=== PATIENT | male | born 1960 | race Caucasian/White ===

== ENCOUNTER → 2016-08-07 | Outpatient (CLI) | payer BC ==
[~2016-08-07] MED LIST: ASPEC81 PO; FISHOIL PO; GARLTAB3 PO; LISI-791 PO; METO-478 PO; OXYC-643 PO; PRAV20TA PO
--- NOTE | 2016-08-07 16:32 | DIAGNOSTIC IMAGING REPORT ---
CHEST 2 VIEWS ROUTINE HISTORY: Upper respiratory tract infection. COMPARISON: Chest 08/26/2012. FINDINGS: The heart is normal in size. No pleural effusions. No pneumothorax. The left lung is clear. Mild diffuse interstitial thickening which appears to be chronic. Slight increased density within the right medial lung base on the frontal view. IMPRESSION: Slight increased focal density within the right medial lung base on the frontal view. This could be due to vascular crowding or developing pneumonia. Electronically signed by: Rahul Garcia M.D. 08/07/2016 4:30 PM
== END | disposition home or self-care (01) ==
LOC: C.RAD1850 15:56
PROVIDERS: ATTEND Student in an Organized Health Care Education/Training Program
DX: J06.9 Acute upper respiratory infection, unspecified (principal)

== ENCOUNTER → 2016-12-11 | Outpatient (CLI) | payer BC ==
--- NOTE | 2016-12-11 12:48 | DIAGNOSTIC IMAGING REPORT ---
CHEST 2 VIEWS ROUTINE CLINICAL HISTORY: R05, R53.83 PERSISTENT COUGH COMPARISON STUDY: 08/07/2016 FINDINGS: The heart is normal in size. There is no failure. There is no lobar consolidation. There is subtle right lower lobe tram tracking raising the possibility of bronchiectasis. Mild peribronchial thickening is suspected. Rounded opacities visualized towards each lung base are felt to reflect nipple shadows. No pleural effusions are visualized[ IMPRESSION: Suspected lower lobe bronchiectatic change with mild peribronchial thickening most pronounced on the right. No evidence of lobar consolidation. No evidence of failure Electronically signed by: Saravanan Santana M.D. 12/11/2016 12:46 PM Dictated Date/Time: 12/11/2016 12:44 PM
== END | disposition home or self-care (01) ==
LOC: C.RAD 12:07
PROVIDERS: ATTEND Nurse Practitioner Family
DX: R05 Cough (principal); R53.83 Other fatigue

== ENCOUNTER → 2017-02-18 | Outpatient (CLI) | payer BC ==
[~2017-02-18] MED LIST changes: -METO-478 PO; +METO1TAB31 PO
--- NOTE | 2017-02-18 10:57 | DIAGNOSTIC IMAGING REPORT ---
CHEST 2 VIEWS ROUTINE CLINICAL HISTORY: ASTHMATIC BRONCHITIS bronchitis COMPARISON STUDY: 12/11/2016 FINDINGS: No significant change from the prior study. Slight interstitial and bronchiectatic change at both lung bases. No focal infiltrate. Upper lungs are clear. No evidence for cardiac enlargement. IMPRESSION: Chronic basilar interstitial and bronchiectatic change. No acute or interval process. The above report was generated using voice recognition software. It may contain grammatical, syntax or spelling errors. Electronically signed by: Mohit Winchester M.D. 02/18/2017 10:56 AM Dictated Date/Time: 02/18/2017 10:55 AM
== END | disposition home or self-care (01) ==
LOC: C.RADBBURG 10:37
PROVIDERS: ATTEND Physician Assistant
DX: J45.909 Unspecified asthma, uncomplicated (principal)

== ENCOUNTER 2017-08-30 21:45 | Emergency (ER) | payer BC, OTHER ==
[~2017-08-30] VITALS: Ht 175.3 cm; Wt 85.0 kg
[~2017-08-30 21:45] MED LIST changes: +METO-478 PO; -METO1TAB31 PO
[2017-08-30 22:02] VITALS: TEMP 36.5; Ht 175.3 cm; Wt 85.0 kg
[2017-08-30] MEDS ORDERED: OXYCODONE HCL IR 5 MG TAB (IMMEDIATE RELEASE) PO STA (22:22)
[2017-08-30] MEDS ORDERED: ASPI81TA28 PO (22:52)
[2017-08-30] MEDS ORDERED: GARL500C5 PO (22:52)
[2017-08-30] MEDS ORDERED: OMEGCAP2 PO (22:52)
[2017-08-30] MEDS ORDERED: IBUP1TAB PO (22:54)
[2017-08-30] MEDS ORDERED: DEXT1LIQ36 PO (22:54)
[2017-08-30] MEDS ORDERED: OXYC1TAB3 PO (23:50)
[2017-08-31] MEDS ORDERED: OXYCODONE IR HOME PACK PO ONE
[2017-08-31 00:19] VITALS: BP 113/73; PULSE 80; O2SAT 93
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
--- NOTE | 2017-08-31 07:59 | DIAGNOSTIC IMAGING REPORT ---
R RIBS UNILATERAL WITH PA CHEST CLINICAL HISTORY: Right-sided rib pain. COMPARISON STUDY: Chest radiograph February 18, 2017. FINDINGS: There is no pneumothorax or pleural effusion. There is no consolidation. Cardiomediastinal silhouette is stable. There is no evidence for pulmonary edema. No displaced right-sided rib fracture is identified. There is a lucency with sclerosis of the posterior lateral right 10th rib. IMPRESSION: 1. No pneumothorax. 2. Findings suggestive of a nondisplaced subacute right 10th rib fracture. Electronically signed by: Norm Robertson M.D. 08/31/2017 7:58 AM Dictated Date/Time: 08/31/2017 7:53 AM
== END 2017-08-31 00:20 | disposition home or self-care (01) ==
LOC: C.EDB 21:45 → C.EDA 08-31 00:20
DX: R07.81 Pleurodynia (principal); W22.8XXA Striking against or struck by other objects, initial encounter; Z79.82 Long term (current) use of aspirin; R05 Cough; Y93.83 Activity, rough housing and horseplay

== ENCOUNTER → 2017-09-12 | Outpatient (CLI) | payer OTHER ==
[~2017-09-12] MED LIST changes: -ASPEC81 PO; +ASPI81TA28 PO; +DEXT1LIQ36 PO; -FISHOIL PO; +GARL500C5 PO; -GARLTAB3 PO; +IBUP1TAB PO; +OMEGCAP2 PO; -OXYC-643 PO; +OXYC1TAB3 PO
--- NOTE | 2017-09-12 12:27 | DIAGNOSTIC IMAGING REPORT ---
CHEST 2 VIEWS ROUTINE CLINICAL HISTORY: COUGH, ACUTE BACK PAIN COMPARISON STUDY: 02/18/2017 FINDINGS: The heart is mildly enlarged. There is underlying pulmonary emphysema. There is no failure. There is mild basilar interstitial thickening, finding which is largely chronic.[ There are no selective pleural effusions. No pneumothorax is visualized. IMPRESSION: Cardiomegaly. Emphysema with chronic basilar interstitial thickening. No evidence of acute parenchymal consolidation Electronically signed by: Saravanan Santana M.D. 09/12/2017 12:26 PM Dictated Date/Time: 09/12/2017 12:25 PM
== END | disposition home or self-care (01) ==
LOC: C.RAD 12:04
PROVIDERS: ATTEND Nurse Practitioner Family
DX: R05 Cough (principal); M54.9 Dorsalgia, unspecified; I51.7 Cardiomegaly; J43.9 Emphysema, unspecified

== ENCOUNTER 2017-09-19 19:24 | Emergency (ER) | payer OTHER ==
[~2017-09-19] VITALS: Ht 177.8 cm; Wt 82.3 kg
[2017-09-19 19:28] VITALS: Ht 177.8 cm; Wt 82.3 kg
[2017-09-19] MEDS ORDERED: SODIUM CHLORIDE 0.9% 1000ML 1,000 ML IV STA ×2 (19:53→22:15)
[2017-09-19] MEDS ORDERED: FENTANYL CITRATE INJ 50 MCG/1 ML 2 ML VIAL IV STA ×2 (19:53→22:15)
--- NOTE | 2017-09-19 20:10 | EMERGENCY ROOM VISIT NOTE ---
ED Visit Note First contact with patient: 19:34 CHIEF COMPLAINT: Rib pain/back pain HISTORY OF PRESENTING ILLNESS: This is a 57-year-old male who presents to the emergency department with complaint of rib/back pain for the past several days. The patient states he was evaluated here on 08/31 after a fall from slipping on the ice and was found to have a fractured rib on the right side. He states that his rib pain initially was getting better with pain medication, but for the past week he has been having increased pain across the middle of his back and states that it hurts to breathe. He denies any chest pain or shortness of breath, palpitations, hemoptysis, dizziness or syncope. He denies any leg pain or swelling. He states that he has been taking 600 mg of Advil and 5 mg of oxycodone every 6 hours with minimal improvement of the pain, but it is not getting any better and in fact has been getting worse. He denies any associated symptoms of headaches, neck pain or stiffness, weakness or numbness of the extremities, difficulty with ambulation, saddle paresthesias, bowel or bladder dysfunction, bloody or black stools, or rash. REVIEW OF SYSTEMS: A complete 10 point review of systems was reviewed with the patient with pertinent positives and negatives as per history of present illness. All else were negative. PAST MEDICAL HISTORY: UT, HTN, HLD, low back surgery for disc herniation FAMILY HISTORY: Father had prostate cancer SOCIAL HISTORY: Lives at home with . Former smoker, quit several years ago , denies alcohol and recreational drugs. ALLERGIES: Reviewed in chart. PHYSICAL EXAM: CONSTITUTIONAL: Pleasant and cooperative. No acute distress, but is in obvious pain and appears uncomfortable during exam. Mildly dehydrated. HEENT: Normocephalic, atraumatic. Pupils equal, round and reactive to light, EOMI. TMs normal. Pharynx normal. Tacky mucous membranes. NECK: Supple, full active range of motion without discomfort. No cervical adenopathy. RESPIRATORY: Clear to auscultation bilaterally with no wheezing, crackles, rhonchi or stridor. Equal expansion bilaterally. CARDIOVASCULAR: Tachycardic. Regular rhythm with no murmurs, rubs or gallops. Normal peripheral perfusion. No edema. CHEST WALL: Normal excursion. No tenderness to palpation or with compression of the chest cavity. No crepitus. No ecchymosis or abrasions noted. GASTROINTESTINAL: Soft, nontender, nondistended. No palpable masses or HSM. Bowel sounds present in all quadrants. BACK: Normal alignment of the spine. No midline tenderness of the thoracic or lumbar spine to palpation. No tenderness of the paraspinous muscles to palpation. MUSCULOSKELETAL: Full range of motion of all joints without discomfort. INTEGUMENTARY: No rash or other significant dermatologic conditions noted. NEUROLOGIC: Alert and oriented X 4 with normal affect. Cranial nerves II-XII grossly intact. No focal neurologic deficits noted. 5/5 strength all 4 extremities. Normal sensation in all 4 extremities to light touch. 2+ patellar and Achilles deep tendon reflexes bilaterally and equal. ED COURSE AND MEDICAL DECISION MAKING: CC: Patient presenting with complaint of rib/back pain DIFFERENTIAL DIAGNOSIS: Includes, but not limited to rib fracture, costochondritis, musculoskeletal back pain, vertebral fracture, pulmonary contusion, pneumonia, PE, pneumothorax, hemothorax, ACS, among others. INTERPRETATION OF LABS: No leukocytosis, mild anemia, no significant electrolyte abnormalities, elevated BUN and creatinine, normal liver enzymes and lipase. Coagulation factors within normal limits with the exception of d- dimer which is significantly elevated. Negative troponin. UA shows trace ketones, otherwise negative for proteinuria, hematuria, or infection. IMAGING: CT ANGIOGRAPHY OF THE CHEST, PULMONARY EMBOLUS PROTOCOL CLINICAL HISTORY: Pleuritic chest pain. Severe back pain. Recent rib fractures. COMPARISON STUDY: Chest radiograph September 12, 2017. TECHNIQUE: Following IV administration of 115 mL of Optiray-320, helical axial images of the chest were obtained utilizing the pulmonary embolus protocol. Maximal intensity projections and sagittal and coronal reformats were viewed on an independent 3D workstation. IV contrast was administered without complication. A dose lowering technique was utilized adhering to the principles of ALARA. FINDINGS: No pulmonary emboli are identified. The heart is mildly enlarged. There is extensive coronary artery calcification. There is no pericardial effusion. There are several mildly enlarged left lower cervical lymph nodes. Note is made of an enlarged left internal mammary lymph node that measures 1.6 cm. There is no evidence for thoracic aortic dissection. There is moderate stenosis of the proximal left subclavian artery. Central airways are patent. Severe upper lobe predominant emphysema is noted. Bilateral lower lobe subpleural linear opacities favor atelectasis. Note is made of innumerable lytic lesions within the visualized skeletal structures, including numerous thoracic spine lesions. A lesion nearly replaces the T3 vertebral body with mild loss of vertebral body height. There is a large lesion centered within the posterior elements of T7 with extensive epidural extension with suspected severe central canal narrowing due to the tumor. This is suboptimally assessed by CT. There is an associated pathologic fracture of T7. There is a pathologic fracture of the right 10th rib. The abdomen and pelvis will be reported separately. Upper abdominal lymphadenopathy is noted. IMPRESSION: 1. No pulmonary emboli identified. 2. Innumerable lytic skeletal lesions, including a lesion centered within the posterior elements of T7 with pathologic fracture and extensive epidural extension of tumor. Suspected severe central canal narrowing at this level due to the tumor. This likely results in cord compression. The findings are consistent with a neoplastic process and may reflect metastatic disease or lymphoma/multiple myeloma. Findings discussed with Siobhan Williamson at time of dictation. 3. Mildly enlarged left lower cervical, internal mammary chain and upper abdominal lymphadenopathy which suggests metastatic disease or lymphoma. 4. Severe emphysema. ----- CT OF THE ABDOMEN AND PELVIS WITH CONTRAST CLINICAL HISTORY: Back pain. Flank pain. COMPARISON STUDY: Right upper quadrant ultrasound December 04, 2016. TECHNIQUE: Following IV administration of 115 mL of Optiray-320, axial images of the abdomen and pelvis were obtained from the lung bases to the proximal femurs. Images were reviewed in the axial, sagittal, and coronal planes. IV contrast was administered without complication. A dose lowering technique was utilized adhering to the principles of ALARA. CT DOSE: 968.23 mGy.cm FINDINGS: The chest will be reported separately. Note is made of several enlarged cardiophrenic angle nodes that measure up to 1.4 cm in short axis diameter. An index peripancreatic node measures 1.7 cm in short axis diameter. Index left para-aortic lymph node measures 1.5 cm in short axis diameter. A 6 mm lateral segment hepatic lesion is probably benign. The spleen, adrenal glands, kidneys and pancreas are unremarkable. There is no biliary or pancreatic ductal dilatation. There is no evidence for a bowel obstruction. Note is made of sigmoid diverticulosis with mild wall thickening of the sigmoid colon. There is minimal adjacent infiltration. There is no free air or abscess. There are post operative findings consistent with an aortobifemoral bypass which appears patent. Note is made of innumerable lytic lesions within visualized skeletal structures, including a 4.7 cm lytic lesion within the posterior medial left iliac bone. There is an L5 pathologic fracture. Mild loss of vertebral body height is noted. IMPRESSION: 1. Innumerable lytic skeletal lesions consistent with a neoplastic process. This may reflect metastatic disease or lymphoma/myeloma. Associated L5 pathologic fracture. 2. Findings suggestive of mild acute sigmoid diverticulitis. An underlying mucosal lesion is considered unlikely but cannot be excluded. 3. Multiple mildly enlarged upper abdominal/para-aortic lymph nodes which may reflect metastatic disease or lymphoma. EKG: Normal sinus rhythm at a rate of 98 bpm, small Q waves noted in the inferior leads, appears unchanged when compared to previous EKG of 08/24/2012 by my interpretation. MEDICATION RECONCILIATION: I attest that I have personally reviewed the patient 's current medication list. INITIAL VITAL SIGNS REVIEW: I reviewed the patient's initial vital signs and interpret them as follows: T: Afebrile; BP: Normotensive; HR: Tachycardic; RR : Within normal limits; Pulse Ox: Within normal limits on room air. Blood pressure screening: The patient was found to have normal blood pressure on screening and does not require follow-up for repeat blood pressure check. SUMMARY: Patient was evaluated at bedside, history and physical exam performed. Patient is alert and oriented, no acute distress, but appears uncomfortable and in pain throughout exam, resting on the stretcher. Patient does not have any reproducible pain with palpation of the chest wall, compression of his rib cage, or percussion of his midline spine. There is no visible muscle spasm and no tenderness to palpation of the paraspinous muscles. Patient does report sharp stabbing pain with deep inspiration. Given his recent trauma, age, pleuritic chest/back pain, and noted to be tachycardic on vitals, I am concerned for a PE. Orders were placed at bedside for labs, UA, IV fluids for hydration, IV fentanyl for pain, EKG, CTA of the chest to evaluate for PE and other abnormalities of the chest. Patient discussed with Dr. Bhat, who agrees with my assessment and plan. Labs and imaging reviewed as above, labs concerning for renal insufficiency with creatinine of 1.95. I discussed with Dr. Bhat, I still have a high suspicion for PE, therefore a d- dimer was ordered. This was noted to be significantly elevated. After discussion with the patient and his family, the decision was made to proceed with a contrast-enhanced CT study. Given the nature of his fall and potential for flank involvement, and abdomen/ pelvis study was also ordered. I discussed with radiology prior to ordering these tests, he assured me that the dye load would be the same as with only the CT chest. CT imaging reviewed and discussed with Dr. Robertson, radiologist, no evidence of a PE, but concerning for significant lytic skeletal lesions and multiple enlarged lymph nodes concerning for metastatic disease or lymphoma. Most concerning is a pathological fracture at T7 with extension of the tumor into the spinal column and concern for possible cord compression. Patient denies any symptoms of weakness, numbness or tingling in the legs, bowel or bladder dysfunction, or saddle numbness. He has no concerning findings on exam for acute spinal cord compression. Patient's neurologic exam has been reassessed multiple times during his stay in the emergency department, and has been unchanged. Patient reassessed multiple times throughout ED stay, he remained in significant pain after multiple doses of fentanyl, therefore was given a dose of IV Dilaudid, with improved relief in pain. I spoke on the phone with Dr. Todd, orthopedics-spine surgery, regarding CT findings of the T7 fracture and concern for cord compression. He states that the medical complications regarding these bone lesions would make the surgery a very complex decision. Given that the patient is neurologically and hemodynamically stable at this time , he feels that emergent MRI studies are not necessary at this time. He did agree with the plan to transfer the patient to a tertiary care center for more definitive diagnosis and management of his condition. I spent several minutes at the bedside discussing with the patient and his and daughter regarding the findings on his CT imaging. I also discussed the desire to transfer the patient for higher level of care, patient and his family prefer [facility]. All questions were answered to the best of my ability, and the patient and his family were updated routinely throughout the planning process. I spoke on the phone with Dr. Landeros, internal medicine at [facility], who agrees to accept the patient as a transfer. Due to critical capacity at [facility], the patient will be sent as an ED to ED transfer. I then spoke on the phone with the ED physician, who states the patient meets trauma criteria based on multiple fractures, and has also involved the trauma team, who will be consulted and plan to evaluate the patient upon arrival. Patient and his family were again updated on plans for transport. There is no transport team available until later this morning. Patient was placed on a maintenance IV fluid for continued renal protection, standing orders for PRN Dilaudid to manage pain, scheduled Toradol and Decadron ordered. The patient is to be provided with a hospital bed for improved comfort. The patient will remain on supervisor assembly during his stay in the emergency department. Patient was signed out to Gregory Abraham PA-C, at change of shift. Patient hemodynamically stable at time of sign-out. Plans for transport to [facility] in the a.m. Current/Historical Medications Scheduled Aspirin (Aspirin Ec), 81 MG PO DAILY Cefdinir (Omnicef), 300 MG PO Q12H Garlic (Garlic), 500 MG PO QAM Lisinopril (Zestril), 10 MG PO QPM Metoprolol Succinate (Toprol Xl), 25 MG PO HS [place]-3 Fatty Acids (Fish Oil), 1 CAP PO QAM Pravastatin Sodium (Pravachol), 20 MG PO HS Scheduled PRN Ibuprofen-Diphenhydramine Citr (Advil Pm), 1 TAB PO UD PRN for Pain/Sleep Oxycodone Ir (Roxicodone Ir), 5 MG PO Q4H PRN for Pain Oxycodone/Acetaminophen 5MG/325MG (Percocet 5MG/325MG), 1 TABLET PO Q6H PRN for Pain Allergies Coded Allergies: Atorvastatin (Verified Adverse Reaction, Unknown, myalgias, 01/02/17) Simvastatin (Verified Adverse Reaction, Unknown, myalgias, 01/02/17) Vital Signs Date Time Temp Pulse Resp B/P (MAP) Pulse Ox O2 Delivery O2 Flow Rate FiO2 09/19/17 22:38 96 20 138/89 95 Room Air 09/19/17 21:18 86 16 100/70 93 Room Air 09/19/17 20:18 96 09/19/17 20:14 97 Room Air 09/19/17 20:14 97 Room Air 09/19/17 19:28 36.4 107 18 112/76 95 Room Air Laboratory Results 09/19/17 20:10 Red Blood Count 2.98, Mean Corpuscular Volume 99.7, Mean Corpuscular Hemoglobin 33.9, Mean Corpuscular Hemoglobin Concent 34.0, Mean Platelet Volume 9.0, Neutrophils (%) (Auto) 57.2, Lymphocytes (%) (Auto) 29.3, Monocytes (%) (Auto) 9.6, Eosinophils (%) (Auto) 0.8, Basophils (%) (Auto) 0.3, Neutrophils # (Auto) 4.51, Lymphocytes # (Auto) 2.31, Monocytes # (Auto) 0.76, Eosinophils # (Auto) 0.06, Basophils # (Auto) 0.02 09/19/17 20:10 Test 09/19/17 20:10 09/19/17 21:40 White Blood Count 7.88 K/uL (4.8-10.8) Red Blood Count 2.98 M/uL (4.7-6.1) Hemoglobin 10.1 g/dL (14.0-18.0) Hematocrit 29.7 % (42-52) Mean Corpuscular Volume 99.7 fL (80-100) Mean Corpuscular Hemoglobin 33.9 pg (25-34) Mean Corpuscular Hemoglobin Concent 34.0 g/dl (32-36) Platelet Count 185 K/uL (130-400) Mean Platelet Volume 9.0 fL (7.4-10.4) Neutrophils (%) (Auto) 57.2 % Lymphocytes (%) (Auto) 29.3 % Monocytes (%) (Auto) 9.6 % Eosinophils (%) (Auto) 0.8 % Basophils (%) (Auto) 0.3 % Neutrophils # (Auto) 4.51 K/uL (1.4-6.5) Lymphocytes # (Auto) 2.31 K/uL (1.2-3.4) Monocytes # (Auto) 0.76 K/uL (0.11-0.59) Eosinophils # (Auto) 0.06 K/uL (0-0.5) Basophils # (Auto) 0.02 K/uL (0-0.2) RDW Standard Deviation 54.8 fL (36.4-46.3) RDW Coefficient of Variation 15.1 % (11.5-14.5) Immature Granulocyte % (Auto) 2.8 % Immature Granulocyte # (Auto) 0.22 K/uL (0.00-0.02) Nucleated RBC Absolute Count (auto) 0.06 K/uL (0-0) Nucleated Red Blood Cells % 0.7 % Prothrombin Time 11.6 SECONDS (9.0-12.0) Prothromb Time International Ratio 1.1 (0.9-1.1) Activated Partial Thromboplast Time 21.5 SECONDS (21.0-31.0) Partial Thromboplastin Ratio 0.8 D-Dimer 2150 ug/L FEU (0-500) Anion Gap 8.0 mmol/L (3-11) Est Creatinine Clear Calc Drug Dose 42.1 ml/min Estimated GFR () 42.4 Estimated GFR (Non- 36.6 BUN/Creatinine Ratio 14.5 (10-20) Calcium Level 8.2 mg/dl (8.5-10.1) Total Bilirubin 0.2 mg/dl (0.2-1) Aspartate Amino Transf (AST/SGOT) 14 U/L (15-37) Alanine Aminotransferase (ALT/SGPT) 19 U/L (12-78) Alkaline Phosphatase 78 U/L (45-117) Troponin I < 0.015 ng/ml (0-0.045) Total Protein 11.9 gm/dl (6.4-8.2) Albumin 2.6 gm/dl (3.4-5.0) Globulin 9.3 gm/dl (2.5-4.0) Albumin/Globulin Ratio 0.3 (0.9-2) Urine Color DK YELLOW Urine Appearance CLEAR (CLEAR) Urine pH 5.0 (4.5-7.5) Urine Specific [place] 1.027 (1.000-1.030) Urine Protein NEG (NEG) Urine Glucose (UA) NEG (NEG) Urine Ketones TRACE (NEG) Urine Occult Blood NEG (NEG) Urine Nitrite NEG (NEG) Urine Bilirubin NEG (NEG) Urine Urobilinogen NEG (NEG) Urine Leukocyte Esterase NEG (NEG) Medications Administered Medications (Trade) Dose Ordered Sig/Malik Route Start Time Stop Time Status Last Admin Dose Admin Fentanyl Citrate (Fentanyl Inj) 50 mcg NOW STAT IV 09/19/17 19:53 09/19/17 19:57 DC 09/19/17 20:13 50 MCG Sodium Chloride 1,000 ml @ 999 mls/hr Q1H1M STAT IV 09/19/17 19:53 09/19/17 20:53 DC 09/19/17 20:13 999 MLS/HR Fentanyl Citrate (Fentanyl Inj) 100 mcg NOW STAT IV 09/19/17 22:15 09/19/17 22:18 DC 09/19/17 22:31 100 MCG Sodium Chloride 1,000 ml @ 999 mls/hr Q1H1M STAT IV 09/19/17 22:15 09/19/17 23:15 DC 09/19/17 22:37 999 MLS/HR Hydromorphone HCl (Dilaudid Inj) 1 mg NOW STAT IV 09/19/17 23:33 09/19/17 23:34 DC 09/19/17 23:39 1 MG Dexamethasone Sodium Phosphate (Decadron Inj) 10 mg Q6H STAT IV 09/19/17 23:46 09/19/17 23:51 DC 09/19/17 23:59 10 MG Ketorolac Tromethamine (Toradol Inj) 15 mg Q6H PRN IV. 09/20/17 00:15 09/25/17 00:14 09/20/17 00:23 15 MG Departure Information Referrals Valeria Lackey [email or web address]. (PCP) Patient Instructions [facility]
[2017-09-19 20:14] VITALS: O2SAT 97
[2017-09-19] MEDS ORDERED: OPTIRAY 320 IV PRN (20:15)
[2017-09-19] MEDS ORDERED: OXYC-57 PO (20:26)
[2017-09-19] MEDS ORDERED: CEFD1CAP14 PO (20:27)
[2017-09-19 20:34] LABS: BASO % 0.3 %; BASO ABS # 0.02 K/uL (0-0.2); EOS % 0.8 %; EOS ABS # 0.06 K/uL (0-0.5); HEMATOCRIT 29.7 % (42-52); HEMOGLOBIN 10.1 g/dL (14.0-18.0); IG# 0.22 K/uL (0.00-0.02); LYMPH % 29.3 %; LYMPH ABS # 2.31 K/uL (1.2-3.4); MEAN CELL VOLUME 99.7 fL (80-100); MEAN CORPUSCULAR HEMOGLOBIN 33.9 pg (25-34); MONO % 9.6 %; MONO ABS # 0.76 K/uL (0.11-0.59); NEUT % 57.2 %; NEUT ABS # 4.51 K/uL (1.4-6.5); NUCLEATED RED BLOOD CELL ABS 0.06 K/uL (0-0); PLATELET COUNT 185 K/uL (130-400); RED CELL DISTRIBUTION WIDTH CV 15.1 % (11.5-14.5); RED CELL DISTRIBUTION WIDTH SD 54.8 fL (36.4-46.3); WHITE BLOOD COUNT 7.88 K/uL (4.8-10.8)
[2017-09-19 20:53] LABS: ALBUMIN 2.6 gm/dl (3.4-5.0); ALT/SGPT 19 U/L (12-78); AST/SGOT 14 U/L (15-37); BLOOD UREA NITROGEN 28 mg/dl (7-18); CALCIUM 8.2 mg/dl (8.5-10.1); CARBON DIOXIDE 25 mmol/L (21-32); CREATININE 1.95 mg/dl (0.60-1.40); GLUCOSE 104 mg/dl (70-99); POTASSIUM 3.7 mmol/L (3.5-5.1); SODIUM 133 mmol/L (136-145)
[2017-09-19 20:58] LABS: ALKALINE PHOSPHATASE 78 U/L (45-117); TOTAL PROTEIN 11.9 gm/dl (6.4-8.2)
[2017-09-19 21:05] LABS: INR 1.1 (0.9-1.1); PTT PATIENT 21.5 SECONDS (21.0-31.0)
--- NOTE | 2017-09-19 22:54 | DIAGNOSTIC IMAGING REPORT ---
CT ANGIOGRAPHY OF THE CHEST, PULMONARY EMBOLUS PROTOCOL CLINICAL HISTORY: Pleuritic chest pain. Severe back pain. Recent rib fractures. COMPARISON STUDY: Chest radiograph September 12, 2017. TECHNIQUE: Following IV administration of 115 mL of Optiray-320, helical axial images of the chest were obtained utilizing the pulmonary embolus protocol. Maximal intensity projections and sagittal and coronal reformats were viewed on an independent 3D workstation. IV contrast was administered without complication. A dose lowering technique was utilized adhering to the principles of ALARA. FINDINGS: No pulmonary emboli are identified. The heart is mildly enlarged. There is extensive coronary artery calcification. There is no pericardial effusion. There are several mildly enlarged left lower cervical lymph nodes. Note is made of an enlarged left internal mammary lymph node that measures 1.6 cm. There is no evidence for thoracic aortic dissection. There is moderate stenosis of the proximal left subclavian artery. Central airways are patent. Severe upper lobe predominant emphysema is noted. Bilateral lower lobe subpleural linear opacities favor atelectasis. Note is made of innumerable lytic lesions within the visualized skeletal structures, including numerous thoracic spine lesions. A lesion nearly replaces the T3 vertebral body with mild loss of vertebral body height. There is a large lesion centered within the posterior elements of T7 with extensive epidural extension with suspected severe central canal narrowing due to the tumor. This is suboptimally assessed by CT. There is an associated pathologic fracture of T7. There is a pathologic fracture of the right 10th rib. The abdomen and pelvis will be reported separately. Upper abdominal lymphadenopathy is noted. IMPRESSION: 1. No pulmonary emboli identified. 2. Innumerable lytic skeletal lesions, including a lesion centered within the posterior elements of T7 with pathologic fracture and extensive epidural extension of tumor. Suspected severe central canal narrowing at this level due to the tumor. This likely results in cord compression. The findings are consistent with a neoplastic process and may reflect metastatic disease or lymphoma/multiple myeloma. Findings discussed with Siobhan Williamson at time of dictation. 3. Mildly enlarged left lower cervical, internal mammary chain and upper abdominal lymphadenopathy which suggests metastatic disease or lymphoma. 4. Severe emphysema. Electronically signed by: Norm Robertson M.D. 09/19/2017 10:53 PM Dictated Date/Time: 09/19/2017 10:30 PM
--- NOTE | 2017-09-19 23:11 | DIAGNOSTIC IMAGING REPORT ---
CT OF THE ABDOMEN AND PELVIS WITH CONTRAST CLINICAL HISTORY: Back pain. Flank pain. COMPARISON STUDY: Right upper quadrant ultrasound December 04, 2016. TECHNIQUE: Following IV administration of 115 mL of Optiray-320, axial images of the abdomen and pelvis were obtained from the lung bases to the proximal femurs. Images were reviewed in the axial, sagittal, and coronal planes. IV contrast was administered without complication. A dose lowering technique was utilized adhering to the principles of ALARA. CT DOSE: 968.23 mGy.cm FINDINGS: The chest will be reported separately. Note is made of several enlarged cardiophrenic angle nodes that measure up to 1.4 cm in short axis diameter. An index peripancreatic node measures 1.7 cm in short axis diameter. Index left para-aortic lymph node measures 1.5 cm in short axis diameter. A 6 mm lateral segment hepatic lesion is probably benign. The spleen, adrenal glands, kidneys and pancreas are unremarkable. There is no biliary or pancreatic ductal dilatation. There is no evidence for a bowel obstruction. Note is made of sigmoid diverticulosis with mild wall thickening of the sigmoid colon. There is minimal adjacent infiltration. There is no free air or abscess. There are post operative findings consistent with an aortobifemoral bypass which appears patent. Note is made of innumerable lytic lesions within visualized skeletal structures, including a 4.7 cm lytic lesion within the posterior medial left iliac bone. There is an L5 pathologic fracture. Mild loss of vertebral body height is noted. IMPRESSION: 1. Innumerable lytic skeletal lesions consistent with a neoplastic process. This may reflect metastatic disease or lymphoma/myeloma. Associated L5 pathologic fracture. 2. Findings suggestive of mild acute sigmoid diverticulitis. An underlying mucosal lesion is considered unlikely but cannot be excluded. 3. Multiple mildly enlarged upper abdominal/para-aortic lymph nodes which may reflect metastatic disease or lymphoma. Electronically signed by: Norm Robertson M.D. 09/19/2017 11:09 PM Dictated Date/Time: 09/19/2017 11:02 PM
[2017-09-19] MEDS ORDERED: HYDROmorphone INJ 1 MG/ML SYR IV STA (23:33)
[2017-09-19] MEDS ORDERED: DEXAMETHASONE SOD INJ 4 MG/ML VIAL IV STA (23:46)
[2017-09-20] MEDS ORDERED: KETOROLAC TROMETHAMINE 15 MG/ML VIAL IV PRN
[2017-09-20] MEDS: KETOROLAC TROMETHAMINE 30 MG/ML VIAL IV. PRN ×2 (00:23→07:01)
[2017-09-20] MEDS ORDERED: SODIUM CHLORIDE 0.9% 1000ML 1,000 ML IV STA (00:38)
[2017-09-20] MEDS ORDERED: HYDROmorphone INJ 0.5 MG/0.5 ML SYR IV PRN (01:15)
[2017-09-20 06:55] VITALS: TEMP 36.7
[2017-09-20] MEDS ORDERED: CEFDINIR 300 MG CAP PO STA (07:12)
[2017-09-20 08:03] VITALS: BP 159/101; PULSE 110; O2SAT 95
--- NOTE | 2017-09-21 06:37 | EMERGENCY ROOM VISIT NOTE ---
ED Visit Note First contact with patient: 03:18 Patient care was assumed from JAYLIN Martin, at the time of shift change. Please see Ms. Williamson' dictation for full history of present illness emergency Department course outside of this note. In short, the patient has what appears to be extensive metastatic disease with possible spinal cord impingement. This was discovered today and the patient is being transported to [facility]. The patient remained in stable condition for several hours overnight awaiting transport to [place]. On reevaluation the patient was quite comfortable from a pain control standpoint, and was able to sleep in his hospital bed for a few hours. He did not have any evolution of neurologic complaints. He was given a morning dose of Omnicef which she has been taking for an ear infection. The remainder of his ER stay was uneventful, and he was transported to [place] without incident. Current/Historical Medications Scheduled Aspirin (Aspirin Ec), 81 MG PO DAILY Cefdinir (Omnicef), 300 MG PO Q12H Garlic (Garlic), 500 MG PO QAM Lisinopril (Zestril), 10 MG PO QPM Metoprolol Succinate (Toprol Xl), 25 MG PO HS [place]-3 Fatty Acids (Fish Oil), 1 CAP PO QAM Pravastatin Sodium (Pravachol), 20 MG PO HS Scheduled PRN Ibuprofen-Diphenhydramine Citr (Advil Pm), 1 TAB PO UD PRN for Pain/Sleep Oxycodone Ir (Roxicodone Ir), 5 MG PO Q4H PRN for Pain Oxycodone/Acetaminophen 5MG/325MG (Percocet 5MG/325MG), 1 TABLET PO Q6H PRN for Pain Allergies Coded Allergies: Atorvastatin (Verified Adverse Reaction, Unknown, myalgias, 01/02/17) Simvastatin (Verified Adverse Reaction, Unknown, myalgias, 01/02/17) Vital Signs Date Time Temp Pulse Resp B/P (MAP) Pulse Ox O2 Delivery O2 Flow Rate FiO2 09/20/17 08:03 110 18 159/101 95 Room Air 09/20/17 06:55 36.7 104 18 154/97 96 Room Air 09/20/17 05:00 85 18 140/86 98 Room Air 09/20/17 04:33 101 18 133/84 93 Room Air 09/20/17 04:20 106 2/17/18 02:00 107 20 137/86 93 Room Air 09/20/17 01:35 110 20 09/20/17 00:20 108 09/19/17 22:38 96 20 138/89 95 Room Air 09/19/17 21:18 86 16 100/70 93 Room Air 09/19/17 20:18 96 09/19/17 20:14 97 Room Air 09/19/17 20:14 97 Room Air 09/19/17 19:28 36.4 107 18 112/76 95 Room Air Laboratory Results 09/19/17 20:10 Red Blood Count 2.98, Mean Corpuscular Volume 99.7, Mean Corpuscular Hemoglobin 33.9, Mean Corpuscular Hemoglobin Concent 34.0, Mean Platelet Volume 9.0, Neutrophils (%) (Auto) 57.2, Lymphocytes (%) (Auto) 29.3, Monocytes (%) (Auto) 9.6, Eosinophils (%) (Auto) 0.8, Basophils (%) (Auto) 0.3, Neutrophils # (Auto) 4.51, Lymphocytes # (Auto) 2.31, Monocytes # (Auto) 0.76, Eosinophils # (Auto) 0.06, Basophils # (Auto) 0.02 09/19/17 20:10 Test 09/19/17 20:10 09/19/17 21:40 White Blood Count 7.88 K/uL (4.8-10.8) Red Blood Count 2.98 M/uL (4.7-6.1) Hemoglobin 10.1 g/dL (14.0-18.0) Hematocrit 29.7 % (42-52) Mean Corpuscular Volume 99.7 fL (80-100) Mean Corpuscular Hemoglobin 33.9 pg (25-34) Mean Corpuscular Hemoglobin Concent 34.0 g/dl (32-36) Platelet Count 185 K/uL (130-400) Mean Platelet Volume 9.0 fL (7.4-10.4) Neutrophils (%) (Auto) 57.2 % Lymphocytes (%) (Auto) 29.3 % Monocytes (%) (Auto) 9.6 % Eosinophils (%) (Auto) 0.8 % Basophils (%) (Auto) 0.3 % Neutrophils # (Auto) 4.51 K/uL (1.4-6.5) Lymphocytes # (Auto) 2.31 K/uL (1.2-3.4) Monocytes # (Auto) 0.76 K/uL (0.11-0.59) Eosinophils # (Auto) 0.06 K/uL (0-0.5) Basophils # (Auto) 0.02 K/uL (0-0.2) RDW Standard Deviation 54.8 fL (36.4-46.3) RDW Coefficient of Variation 15.1 % (11.5-14.5) Immature Granulocyte % (Auto) 2.8 % Immature Granulocyte # (Auto) 0.22 K/uL (0.00-0.02) Nucleated RBC Absolute Count (auto) 0.06 K/uL (0-0) Nucleated Red Blood Cells % 0.7 % Prothrombin Time 11.6 SECONDS (9.0-12.0) Prothromb Time International Ratio 1.1 (0.9-1.1) Activated Partial Thromboplast Time 21.5 SECONDS (21.0-31.0) Partial Thromboplastin Ratio 0.8 D-Dimer 2150 ug/L FEU (0-500) Anion Gap 8.0 mmol/L (3-11) Est Creatinine Clear Calc Drug Dose 42.1 ml/min Estimated GFR () 42.4 Estimated GFR (Non- 36.6 BUN/Creatinine Ratio 14.5 (10-20) Calcium Level 8.2 mg/dl (8.5-10.1) Total Bilirubin 0.2 mg/dl (0.2-1) Aspartate Amino Transf (AST/SGOT) 14 U/L (15-37) Alanine Aminotransferase (ALT/SGPT) 19 U/L (12-78) Alkaline Phosphatase 78 U/L (45-117) Troponin I < 0.015 ng/ml (0-0.045) Total Protein 11.9 gm/dl (6.4-8.2) Albumin 2.6 gm/dl (3.4-5.0) Globulin 9.3 gm/dl (2.5-4.0) Albumin/Globulin Ratio 0.3 (0.9-2) Urine Color DK YELLOW Urine Appearance CLEAR (CLEAR) Urine pH 5.0 (4.5-7.5) Urine Specific [place] 1.027 (1.000-1.030) Urine Protein NEG (NEG) Urine Glucose (UA) NEG (NEG) Urine Ketones TRACE (NEG) Urine Occult Blood NEG (NEG) Urine Nitrite NEG (NEG) Urine Bilirubin NEG (NEG) Urine Urobilinogen NEG (NEG) Urine Leukocyte Esterase NEG (NEG) Medications Administered Medications (Trade) Dose Ordered Sig/Malik Route Start Time Stop Time Status Last Admin Dose Admin Fentanyl Citrate (Fentanyl Inj) 50 mcg NOW STAT IV 09/19/17 19:53 09/19/17 19:57 DC 09/19/17 20:13 50 MCG Sodium Chloride 1,000 ml @ 999 mls/hr Q1H1M STAT IV 09/19/17 19:53 09/19/17 20:53 DC 09/19/17 20:13 999 MLS/HR Fentanyl Citrate (Fentanyl Inj) 100 mcg NOW STAT IV 09/19/17 22:15 09/19/17 22:18 DC 09/19/17 22:31 100 MCG Sodium Chloride 1,000 ml @ 999 mls/hr Q1H1M STAT IV 09/19/17 22:15 09/19/17 23:15 DC 09/19/17 22:37 999 MLS/HR Hydromorphone HCl (Dilaudid Inj) 1 mg NOW STAT IV 09/19/17 23:33 09/19/17 23:34 DC 09/19/17 23:39 1 MG Dexamethasone Sodium Phosphate (Decadron Inj) 10 mg Q6H STAT IV 09/19/17 23:46 09/19/17 23:51 DC 09/19/17 23:59 10 MG Ketorolac Tromethamine (Toradol Inj) 15 mg Q6H PRN IV. 09/20/17 00:15 09/20/17 08:35 DC 09/20/17 07:01 15 MG Sodium Chloride 1,000 ml @ 125 mls/hr Q8H STAT IV 09/20/17 00:38 09/20/17 08:35 DC 09/20/17 02:16 125 MLS/HR Hydromorphone HCl (Dilaudid Inj) 0.5 mg Q1H PRN IV 09/20/17 01:15 09/20/17 08:35 DC 09/20/17 07:01 0.5 MG Departure Information Dispostion Transfer Acute Care Facility Condition GOOD Referrals Valeria Lackey C.R.N.P. (PCP) Forms WORK / SCHOOL INSTRUCTIONS, HOME CARE DOCUMENTATION FORM, IMPORTANT VISIT INFORMATION Patient Instructions [facility]
== END 2017-09-20 08:28 | disposition short-term general hospital (02) ==
LOC: C.EDB 19:25
DX: R07.81 Pleurodynia (principal); C79.9 Secondary malignant neoplasm of unspecified site; W00.9XXA Unspecified fall due to ice and snow, initial encounter; I25.2 Old myocardial infarction; I10 Essential (primary) hypertension; E78.5 Hyperlipidemia, unspecified; Z87.891 Personal history of nicotine dependence; J43.9 Emphysema, unspecified; Z79.82 Long term (current) use of aspirin

== ENCOUNTER 2017-09-27 13:36 | Inpatient (IN) | payer OTHER ==
[~2017-09-27] VITALS: Ht 172.7 cm; Wt 82.1 kg
[~2017-09-27 13:36] MED LIST changes: +CEFD1CAP14 PO; -DEXT1LIQ36 PO; +OXYC-57 PO
[2017-09-27] MEDS ORDERED: PIPERACILL/TAZOBAC IV 4.5 GM in DEXTROSE 5% 100ML 100 ML IV STA (14:11)
[2017-09-27] MEDS ORDERED: VANCOMYCIN INJ 1,000 MG in SODIUM CHLORIDE 0.9% 250ML 250 ML IV STA (14:11)
[2017-09-27] MEDS ORDERED: SODIUM CHLORIDE 0.9% 1000ML 1,000 ML IV ONE (14:11)
--- NOTE | 2017-09-27 14:11 | EMERGENCY ROOM VISIT NOTE ---
History Report prepared by Juan Luis: Jesus Dye Under the Supervision of: Dr. Kirill Gann M.D. First contact with patient: 13:48 Chief Complaint: INFECTION Stated Complaint: POSSIBLE INFECTION- HAS MULTI MYELOMA History of Present Illness The patient is a 57 year old white male with multiple myeloma who presents to the ED with a cc of a worsening bump around the groin area beginning yesterday. Positive sweats, chills, increased temperature, fatigue. Negative sore throat, urinary symptoms, bowel movement changes, recent falls. Per the patient's family , the patient was just recently diagnosed with multiple myeloma, and had 2 rods put in at [place]. He was discharged last week. The patient started to not feel well yesterday, and the bump that was noted in his groin area has gotten bigger today. The patient has noted pain around the bump as well. The patient's temperature was noted to be over 100 using a thermometer under his arm. The patient's doctor in [place] was called, and recommended that the patient come here. The patient notes no other skin changes other than the bump on the groin. He is a non-smoker. Source of History: patient, family Onset: Yesterday Position: other (groin area) Quality: other (bump) Timing: worsening Associated Symptoms: + fevers, + chills, + diaphoresis, + fatigue, No sorethroat, No urinary symptoms Note: Associated symptoms: Groin pain around bump. Negative bowel movement changes. Review of Systems See HPI for pertinent positives and negatives. A total of ten systems were reviewed and were otherwise negative. Past Medical & Surgical Medical Problems: (1) Multiple myeloma Family History Cancer Social History Smoking Status: Former Smoker Marital Status: Housing Status: lives with family Occupation Status: employed Current/Historical Medications Scheduled Aspirin (Aspirin Ec), 81 MG PO DAILY Garlic (Garlic), 500 MG PO QAM Metoprolol Succinate (Toprol Xl), 25 MG PO HS [place]-3 Fatty Acids (Fish Oil), 1 CAP PO QAM Pravastatin Sodium (Pravachol), 20 MG PO HS Sennosides-Docusate Sodium (Docusate Sodium/Senna), 1 TAB PO BID Scheduled PRN Cyclobenzaprine Hcl (Flexeril), 5 MG PO BID PRN for Muscle Spasms Oxycodone Hcl (Oxycodone Hcl), 1 TAB PO Q4H PRN for Moderate Pain Allergies Coded Allergies: Atorvastatin (Verified Adverse Reaction, Unknown, myalgias, 09/27/17) Simvastatin (Verified Adverse Reaction, Unknown, myalgias, 09/27/17) Physical Exam Vital Signs Date Time Temp Pulse Resp B/P (MAP) Pulse Ox O2 Delivery O2 Flow Rate FiO2 09/27/17 19:09 127 18 105/68 96 Room Air 09/27/17 19:06 127 09/27/17 18:51 129 19 95 Room Air 09/27/17 18:21 128 19 96 09/27/17 18:05 91/58 09/27/17 18:05 128 20 91/58 95 Room Air 09/27/17 17:51 127 25 94 09/27/17 17:48 126 21 76/48 95 Room Air 09/27/17 17:47 76/48 09/27/17 16:16 118 21 90 09/27/17 16:11 110 24 90 09/27/17 16:06 111 19 92 09/27/17 15:07 109 09/27/17 15:06 112 18 09/27/17 15:05 106 18 98/56 98 09/27/17 15:04 98/56 09/27/17 13:42 37.1 129 16 121/73 93 Room Air Physical Exam GENERAL: Tired but arousable 57 year old male. NAD. HENT: Normocephalic, atraumatic. EYES: Normal conjunctiva. Sclera non-icteric. NECK: Supple. No nuchal rigidity. FROM. RESPIRATORY: CTAB, no rhonchi, wheezing, crackles CARDIAC: RRR,systolic ejection murmur at mitral position. ABDOMEN: Soft, NTND, BS+. MSK: .No chest wall TTP, no LE edema : Circumcised. No testicular or penile pain or swelling. No scrotal swelling. Mild erythematous rash within left inguinal crease, no fluctuance or drainage noted. NEURO: GCS 15, CN 2-12 intact, moves all 4s on command SKIN: 12 cm midline incision to mid upper back without any drainage, erythema or swelling. Midline incision scar to abdomen. Medical Decision & Procedures ER Provider Diagnostic Interpretation: Radiology results as stated below per my review and radiologist interpretation: CT HEAD WITHOUT CONTRAST (CT) CLINICAL HISTORY: Altered mental status MULTIPLE MYELOMA COMPARISON STUDY: No previous studies for comparison. TECHNIQUE: Axial CT of the brain is performed from the vertex to the skull base. IV contrast was not administered for this examination. A dose lowering technique was utilized adhering to the principles of ALARA. CT DOSE: 614.27 mGy.cm FINDINGS: No intra or extra-axial mass lesions are visualized. There is no CT evidence of acute cortical infarction. There is no evidence of midline shift. There is no acute hemorrhage. No calvarial fractures are visualized. There are patchy minimal matter hypodensities likely on a small vessel basis. There is a left basal ganglia lacunar infarct versus dilated perivascular space. There is no evidence of pathologic ventricular dilatation. There is no evidence of acute sinusitis. There is a 16 mm lytic focus within the left anterior parietal bone IMPRESSION: 1. No acute intracranial findings 2. 16 mm lytic focus involving the left anterior parietal bone Electronically signed by: Saravanan Santana M.D. 09/27/2017 4:43 PM Dictated Date/Time: 09/27/2017 4:35 PM CHEST ONE VIEW PORTABLE CLINICAL HISTORY: Fever, sepsis COMPARISON STUDY: September 12, 2017 FINDINGS: The cardiac and mediastinal contours are normal. There is no evidence of focal pulmonary consolidation. There is no evidence of failure. No pleural effusions are visualized.[ There are mild basilar atelectatic changes. There are postsurgical changes present within the thoracic spine. There is pulmonary emphysema. IMPRESSION: No active disease in the chest. Electronically signed by: Saravanan Santana M.D 09/27/2017 2:51 PM Dictated Date/Time: 09/27/2017 2:51 PM Laboratory Results 09/27/17 14:30 Red Blood Count 2.41, Mean Corpuscular Volume 100.8, Mean Corpuscular Hemoglobin 34.4, Mean Corpuscular Hemoglobin Concent 34.2, Mean Platelet Volume 8.5, Neutrophils (%) (Auto) 61.5, Lymphocytes (%) (Auto) 24.8, Monocytes (%) ( Auto) 8.9, Eosinophils (%) (Auto) 0.7, Basophils (%) (Auto) 0.1, Neutrophils # ( Auto) 5.37, Lymphocytes # (Auto) 2.17, Monocytes # (Auto) 0.78, Eosinophils # ( Auto) 0.06, Basophils # (Auto) 0.01 09/27/17 13:40 Test 09/27/17 13:40 09/27/17 14:30 09/27/17 15:44 09/27/17 17:10 Anion Gap 5.0 mmol/L (3-11) Estimated GFR () 82.0 Estimated GFR (Non- 70.8 BUN/Creatinine Ratio 17.5 (10-20) Lactic Acid Level 1.3 mmol/L (0.4-2.0) Calcium Level 7.7 mg/dl (8.5-10.1) Total Bilirubin 0.4 mg/dl (0.2-1) Direct Bilirubin 0.1 mg/dl (0-0.2) Aspartate Amino Transf (AST/SGOT) 21 U/L (15-37) Alanine Aminotransferase (ALT/SGPT) 22 U/L (12-78) Alkaline Phosphatase 85 U/L (45-117) Total Creatine Kinase 32 U/L (39-308) Troponin I 0.044 ng/ml (0-0.045) Total Protein 9.5 gm/dl (6.4-8.2) Albumin 2.1 gm/dl (3.4-5.0) Lipase 167 U/L (73-393) White Blood Count 8.74 K/uL (4.8-10.8) Red Blood Count 2.41 M/uL (4.7-6.1) Hemoglobin 8.3 g/dL (14.0-18.0) Hematocrit 24.3 % (42-52) Mean Corpuscular Volume 100.8 fL (80-100) Mean Corpuscular Hemoglobin 34.4 pg (25-34) Mean Corpuscular Hemoglobin Concent 34.2 g/dl (32-36) Platelet Count 186 K/uL (130-400) Mean Platelet Volume 8.5 fL (7.4-10.4) Neutrophils (%) (Auto) 61.5 % Lymphocytes (%) (Auto) 24.8 % Monocytes (%) (Auto) 8.9 % Eosinophils (%) (Auto) 0.7 % Basophils (%) (Auto) 0.1 % Neutrophils # (Auto) 5.37 K/uL (1.4-6.5) Lymphocytes # (Auto) 2.17 K/uL (1.2-3.4) Monocytes # (Auto) 0.78 K/uL (0.11-0.59) Eosinophils # (Auto) 0.06 K/uL (0-0.5) Basophils # (Auto) 0.01 K/uL (0-0.2) RDW Standard Deviation 58.3 fL (36.4-46.3) RDW Coefficient of Variation 15.9 % (11.5-14.5) Immature Granulocyte % (Auto) 4.0 % Immature Granulocyte # (Auto) 0.35 K/uL (0.00-0.02) Nucleated RBC Absolute Count (auto) 0.12 K/uL (0-0) Nucleated Red Blood Cells % 1.4 % Polychromasia 1+ Basophilic Stippling 1+ Prothrombin Time 11.5 SECONDS (9.0-12.0) Prothromb Time International Ratio 1.1 (0.9-1.1) Activated Partial Thromboplast Time 21.0 SECONDS (21.0-31.0) Partial Thromboplastin Ratio 0.8 Influenza Type A Antigen Neg for Influ A (NEG) Influenza Type B Antigen Neg for Influ B (NEG) Venous Blood pH 7.35 (7.36-7.41) Venous Blood Partial Pressure CO2 51 mmHg (38.0-50.0) Venous Blood Partial Pressure O2 24 mmHg Venous Blood HCO3 27 mmol/L Venous Blood Oxygen Saturation < 60.0 % Venous Blood Base Excess 1.2 mEq/L Urine Color YELLOW Urine Appearance CLEAR (CLEAR) Urine pH 5.5 (4.5-7.5) Urine Specific [place] 1.019 (1.000-1.030) Urine Protein NEG (NEG) Urine Glucose (UA) NEG (NEG) Urine Ketones NEG (NEG) Urine Occult Blood NEG (NEG) Urine Nitrite NEG (NEG) Urine Bilirubin NEG (NEG) Urine Urobilinogen NEG (NEG) Urine Leukocyte Esterase NEG (NEG) Urine WBC (Auto) 1-5 /hpf (0-5) Urine RBC (Auto) 0-4 /hpf (0-4) Urine Hyaline Casts (Auto) 0 /lpf (0-5) Urine Epithelial Cells (Auto) 0-5 /lpf (0-5) Urine Bacteria (Auto) NEG (NEG) Laboratory results reviewed by me Medications Administered Medications (Trade) Dose Ordered Sig/Malik Route Start Time Stop Time Status Last Admin Dose Admin Vancomycin HCl 1000 mg/Sodium Chloride 270 ml @ 125 mls/hr ONE STAT IV 09/27/17 14:11 09/27/17 16:20 DC 09/27/17 14:53 125 MLS/HR Sodium Chloride 1,000 ml @ 2,000 mls/hr Q30M ONCE IV 09/27/17 14:11 09/27/17 14:40 DC 09/27/17 14:53 2,000 MLS/HR Piperacillin Sod/ Tazobactam Sod 4.5 gm/Dextrose 120 ml @ 200 mls/hr NOW STAT IV 09/27/17 14:11 09/27/17 14:46 DC 09/27/17 14:53 200 MLS/HR Sodium Chloride 1,000 ml @ 999 mls/hr Q1H1M STAT IV 09/27/17 17:53 09/27/17 18:53 DC 09/27/17 17:53 999 MLS/HR ECG Per My Interpretation Indication: weakness Rate (beats per minute): 101 Rhythm: sinus tachycardia Findings: other (normal intervals, normal axis, no STS changes or TWI) ED Course 1356: The patient was evaluated in room C8. A complete history and physical exam was performed. 1450: I reevaluated the patient and talked to the patient's family. I updated them on the results. 1818: Upon reexamination, the patient was resting. I discussed the test results and treatment plan with him and his family. They expressed understanding and agreement. The patient will be evaluated for further management. 1835: Discussed the patient's case with Dr. Roverto Kang power generation turbine room operator. The patient will be evaluated for further treatment and disposition. Medical Decision The patient is a 57 year old white male with multiple myeloma who presents to the ED with a cc of a worsening bump around the groin area beginning yesterday. Positive sweats, chills, increased temperature, fatigue. Negative cough, sore throat, urinary symptoms, bowel movement changes. Differential diagnosis: Etiologies such as metabolic, infection, hypo/hyperglycemia, electrolyte abnormalities, cardiac sources, intracerebral event, toxicologic, neurologic, as well as others were entertained. Patient was seen and evaluated at the bedside. The family was concerned as the patient did develop a rash within his groin area. The density was mildly uncomfortable. Patient reports that he recently was diagnosed multiple myeloma and did have a debulking procedure, laminectomy, and hardware placed in his upper back. He was discharged from [facility] on Friday. He reportedly had a low-grade fever that was around 100F at home. Patient has not had any other acute symptomatic complaints. Patient did not have a flu shot. Patient did have blood work completed along with a VBG, lactate, blood and urine cultures, urinalysis, EKG, chest x-ray, and CT of the brain. Patient had an unremarkable neurologic exam. Of note the patient's incisional site looks very well-appearing. Patient's rash was located in the inguinal creases. This I believe is more of a simple cellulitis and possible fungal infection that could use some nystatin powder. Patient was given broad-spectrum antibiotics empirically given the patient's tachycardia reported fever at home. Patient's blood work does not show an acute source of infection. The patient' s white blood cell count is fairly normal. Patient does have some anemia which is slightly decreased from prior. Patient has normal platelet count and coag studies. Patient did have a rectal examination that was performed which showed no gross blood and patient did not have any Hemoccult positive stool. Patient CT of the brain did show a lytic lesion but no other abnormalities. Patient's chest x-ray was clear. Patient had a fairly normal VBG and lactate. Patient was given 2 L. Patient was having some worsening tachycardia and mild decreased blood pressure. Patient was given an additional liter. I did discuss the results with the family at bedside to discuss the case with the hospitalist. Patient was admitted to the medicine service. I did discuss the patient with the nighttime hospitalist and CTs of the chest and abdomen are ordered. Medication Reconcilliation Current Medication List: was personally reviewed by me Blood Pressure Screening Patient's blood pressure: Normal blood pressure Consults Time Called: 1829 Consulting Physician: Dr. Roverto Kang power generation turbine room operator Returned Call: [phone] Discussed the patient's case with Dr. Roverto Kang power generation turbine room operator. The patient will be evaluated for further treatment and disposition. Impression Primary Impression: Dehydration Additional Impressions: Anemia Tachycardia Scribe Attestation The scribe's documentation has been prepared under my direction and personally reviewed by me in its entirety. I confirm that the note above accurately reflects all work, treatment, procedures, and medical decision making performed by me. Departure Information Dispostion Being Evaluated By Hospitalist Referrals Valeria Lackey C.R.N.P. (PCP) Patient Instructions My [facility] Problem Qualifiers Additional Impressions: Anemia Anemia type: unspecified type Qualified Codes: D64.9 - Anemia, unspecified
[2017-09-27] MEDS ORDERED: VANCOMYCIN CONSULT ACTIVE PRN ×2 (14:15→19:45)
[2017-09-27 14:50] LABS: BASO % 0.1 %; BASO ABS # 0.01 K/uL (0-0.2); EOS % 0.7 %; EOS ABS # 0.06 K/uL (0-0.5); HEMATOCRIT 24.3 % (42-52); HEMOGLOBIN 8.3 g/dL (14.0-18.0); IG# 0.35 K/uL (0.00-0.02); LYMPH % 24.8 %; LYMPH ABS # 2.17 K/uL (1.2-3.4); MEAN CELL VOLUME 100.8 fL (80-100); MEAN CORPUSCULAR HEMOGLOBIN 34.4 pg (25-34); MEAN CORPUSCULAR HGB CONC 34.2 g/dl (32-36); MEAN PLATELET VOLUME 8.5 fL (7.4-10.4); MONO % 8.9 %; MONO ABS # 0.78 K/uL (0.11-0.59); NEUT % 61.5 %; NEUT ABS # 5.37 K/uL (1.4-6.5); NUCLEATED RED BLOOD CELL ABS 0.12 K/uL (0-0); PLATELET COUNT 186 K/uL (130-400); RED CELL DISTRIBUTION WIDTH CV 15.9 % (11.5-14.5); RED CELL DISTRIBUTION WIDTH SD 58.3 fL (36.4-46.3); WHITE BLOOD COUNT 8.74 K/uL (4.8-10.8)
--- NOTE | 2017-09-27 14:53 | DIAGNOSTIC IMAGING REPORT ---
CHEST ONE VIEW PORTABLE CLINICAL HISTORY: Fever, sepsis COMPARISON STUDY: September 12, 2017 FINDINGS: The cardiac and mediastinal contours are normal. There is no evidence of focal pulmonary consolidation. There is no evidence of failure. No pleural effusions are visualized.[ There are mild basilar atelectatic changes. There are postsurgical changes present within the thoracic spine. There is pulmonary emphysema. IMPRESSION: No active disease in the chest. Electronically signed by: Saravanan Santana M.D. 09/27/2017 2:51 PM Dictated Date/Time: 09/27/2017 2:51 PM
[2017-09-27 15:00] LABS: INR 1.1 (0.9-1.1)
[2017-09-27] MEDS ORDERED: CYCL5TAB PO (15:01)
[2017-09-27] MEDS ORDERED: OXYC-164 PO (15:01)
[2017-09-27] MEDS ORDERED: SENN8.6T36 PO (15:01)
[2017-09-27 15:04] LABS: ALBUMIN 2.1 gm/dl (3.4-5.0); ALT/SGPT 22 U/L (12-78); AST/SGOT 21 U/L (15-37); BLOOD UREA NITROGEN 20 mg/dl (7-18); CALCIUM 7.7 mg/dl (8.5-10.1); CARBON DIOXIDE 28 mmol/L (21-32); CREATININE 1.13 mg/dl (0.60-1.40); GLUCOSE 77 mg/dl (70-99); LIPASE 167 U/L (73-393); POTASSIUM 3.7 mmol/L (3.5-5.1); SODIUM 130 mmol/L (136-145)
[2017-09-27 15:09] LABS: ALKALINE PHOSPHATASE 85 U/L (45-117); TOTAL PROTEIN 9.5 gm/dl (6.4-8.2)
[2017-09-27 15:21] LABS: INFLUENZA B ANTIGEN Neg for Influ B (NEG)
--- NOTE | 2017-09-27 16:44 | DIAGNOSTIC IMAGING REPORT ---
CT HEAD WITHOUT CONTRAST (CT) CLINICAL HISTORY: Altered mental status MULTIPLE MYELOMA COMPARISON STUDY: No previous studies for comparison. TECHNIQUE: Axial CT of the brain is performed from the vertex to the skull base. IV contrast was not administered for this examination. A dose lowering technique was utilized adhering to the principles of ALARA. CT DOSE: 614.27 mGy.cm FINDINGS: No intra or extra-axial mass lesions are visualized. There is no CT evidence of acute cortical infarction. There is no evidence of midline shift. There is no acute hemorrhage. No calvarial fractures are visualized. There are patchy minimal matter hypodensities likely on a small vessel basis. There is a left basal ganglia lacunar infarct versus dilated perivascular space. There is no evidence of pathologic ventricular dilatation. There is no evidence of acute sinusitis. There is a 16 mm lytic focus within the left anterior parietal bone IMPRESSION: 1. No acute intracranial findings 2. 16 mm lytic focus involving the left anterior parietal bone Electronically signed by: Saravanan Santana M.D. 09/27/2017 4:43 PM Dictated Date/Time: 09/27/2017 4:35 PM
[2017-09-27] MEDS ORDERED: SODIUM CHLORIDE 0.9% 1000ML 1,000 ML IV STA (17:53)
[2017-09-27] MEDS ORDERED: MoRPHine SULFATE 4 MG/ML 1 ML CARP\\VIAL ONE (19:25)
[2017-09-27] MEDS ORDERED: MoRPHine SULFATE 4 MG/ML 1 ML CARP\\VIAL IV PRN (19:30)
[2017-09-27] MEDS ORDERED: OXYCODONE HCL IR 5 MG TAB (IMMEDIATE RELEASE) PO PRN (19:45)
[2017-09-27] MEDS ORDERED: ZOLPIDEM TARTRATE 5 MG TAB PO PRN (19:45)
[2017-09-27] MEDS ORDERED: ONDANSETRON INJ 2 MG/ML 2 ML VIAL IV PRN (19:45)
[2017-09-27] MEDS ORDERED: CYCLOBENZAPRINE HCL 10 MG TAB PO PRN (19:45)
[2017-09-27] MEDS ORDERED: PIPERACILL/TAZOBAC CONSULT ACTIVE PRN (19:45)
[2017-09-27] MEDS ORDERED: ACETAMINOPHEN 325 MG TAB PO PRN (19:45)
[2017-09-27] MEDS ORDERED: PATIENT'S HEIGHT AND/OR WEIGHT NEEDED SCH (20:15)
[2017-09-27] MEDS ORDERED: OPTIRAY 320 IV PRN (20:15)
[2017-09-27] MEDS: ACETAMINOPHEN IV 100 ML IV PRN (20:16)
--- NOTE | 2017-09-27 20:20 | Pharmacy Progress Note ---
Pharmacy Abx Initial Consult Date of Service Sep 27, 2017. Pharmacy Dosing Scope Date of Consult: 09/27/17 Consultation requested by: Dr. Kolb Pharmacy is consulted to initiate Vancomycin and Zosyn IV dosing therapy, order appropriate labs and adjust drug dose/frequency. Subjective The patient is a 57 year old male admitted on 09/27/17. Objective Height (Feet): 5 Height (Inches): 10 Vital Signs (Past 12Hrs) Vital Signs Past 12 Hours Date Time Temp Pulse Resp B/P (MAP) Pulse Ox O2 Delivery O2 Flow Rate FiO2 09/27/17 19:09 127 18 105/68 96 Room Air 09/27/17 19:06 127 09/27/17 18:51 129 19 95 Room Air 09/27/17 18:21 128 19 96 09/27/17 18:05 91/58 09/27/17 18:05 128 20 91/58 95 Room Air 09/27/17 17:51 127 25 94 09/27/17 17:48 126 21 76/48 95 Room Air 09/27/17 17:47 76/48 09/27/17 16:16 118 21 90 09/27/17 16:11 110 24 90 09/27/17 16:06 111 19 92 09/27/17 15:07 109 09/27/17 15:06 112 18 09/27/17 15:05 106 18 98/56 98 09/27/17 15:04 98/56 09/27/17 13:42 37.1 129 16 121/73 93 Room Air Lab Results (24Hrs) Laboratory Tests (24 Hours) Test 09/27/17 13:40 09/27/17 14:30 Lactic Acid Level 1.3 mmol/L (0.4-2.0) Total Creatine Kinase 32 U/L (39-308) L White Blood Count 8.74 K/uL (4.8-10.8) Red Blood Count 2.41 M/uL (4.7-6.1) L Hemoglobin 8.3 g/dL (14.0-18.0) L Hematocrit 24.3 % (42-52) L Mean Corpuscular Volume 100.8 fL (80-100) H Mean Corpuscular Hemoglobin 34.4 pg (25-34) H Mean Corpuscular Hemoglobin Concent 34.2 g/dl (32-36) Platelet Count 186 K/uL (130-400) Mean Platelet Volume 8.5 fL (7.4-10.4) Neutrophils (%) (Auto) 61.5 % Lymphocytes (%) (Auto) 24.8 % Monocytes (%) (Auto) 8.9 % Eosinophils (%) (Auto) 0.7 % Basophils (%) (Auto) 0.1 % Neutrophils # (Auto) 5.37 K/uL (1.4-6.5) Lymphocytes # (Auto) 2.17 K/uL (1.2-3.4) Monocytes # (Auto) 0.78 K/uL (0.11-0.59) H Eosinophils # (Auto) 0.06 K/uL (0-0.5) Basophils # (Auto) 0.01 K/uL (0-0.2) Micro Results Date/Time Source Procedure Growth Status 09/27/17 15:44 Blood Blood Culture Pending Received 09/27/17 14:30 Blood Blood Culture Pending Received 09/27/17 17:05 Urine , Clean Catch Urine Culture Pending Received Risk Factors for Resistance * Hospitalization for 48 hours or more within the past 90 days -- unclear... was he at [place] recently? * Immunocompromised (chronic steroid therapy, chemotherapy, immunomodulators) - - h/o multiple myeloma Assessment & Plan Assessment 57 year old male on empiric IV antibiotics for possible infection with history of multiple myeloma. He noticed a worsening bump around groin area. +sweats, chills, fatigue, and febrile. His physician at [facility] recommended that he go to ED. He was apparently discharged from [facility] last week and had 2 rods put in. Unclear source of infection. No H&P available for review at this time * sCr = 1.13 mg/dL with estimated CrCl ~76 mL/min. Renal function does not seem to be impaired. Estimated pharmacokinetic parameters: * Ke ~0.067/hr, T1/2 ~10.3 hrs * He received Vancomycin 1000mg (~12mg/kg) IV as a "loading" dose in the ED earlier today at 1453. This is lower than usual recommended loading dose. Will start maintenance regimen BRAYDON. * He is also receiving Levaquin (not a consult). Plan Vancomycin IV * Maintenance dose: 1250 mg IV (~15 mg/kg) every 12 hours * No trough level ordered at this time due to empiric indication; once source of infection known and patient confirmed infectious and therapy to be continued >48 hours, will order trough to assess dosing regimen Piperacillin/tazobactam * 4.5 g bolus administered over 30 minutes already given in ED, then 3.375 g IV extended infusion every 8 hours for CrCl greater than 20 mL/min Pharmacy will continue to follow and will adjust dose/frequency as necessary. Thank you.
[2017-09-27 21:10] VITALS: BP 96/67; PULSE 120; TEMP 37.4; O2SAT 93; Ht 172.7 cm; Wt 82.1 kg
--- NOTE | 2017-09-27 21:13 | DIAGNOSTIC IMAGING REPORT ---
CT ANGIOGRAM OF THE CHEST CLINICAL HISTORY: Multiple myeloma. Tachycardia. Sepsis. Shortness of breath. COMPARISON STUDY: September 19, 2017 TECHNIQUE: Following the IV administration of 100 mL of Optiray-320, CT angiogram of the thorax was performed from the thoracic inlet to the lung bases utilizing the pulmonary embolus protocol. Images are reviewed in the axial, sagittal, and coronal planes. IV contrast was administered without complication. MIP imaging was performed. A dose lowering technique was utilized adhering to the principles of ALARA. CT DOSE: FINDINGS: There is an enlarged 14 mm precarinal lymph node. There is a large subcarinal lymph node measuring 21 mm. There is enlarged internal mammary lymph node measuring 17 mm. There is mild right hilar adenopathy. There is a left hilar node at the upper limits of normal in size. There was no evidence of thoracic aortic dilatation. There were no pulmonary artery filling defects to indicate acute pulmonary embolism. No pleural effusions are visualized. There is mild lower lobe bronchial wall thickening. There are lower lobe dependent atelectatic changes. There is pulmonary emphysema. There is multifocal lytic bone disease. IMPRESSION: 1. No evidence of acute pulmonary embolism 2. Mediastinal lymphadenopathy 3. Extensive lytic bone disease 4. Emphysema Electronically signed by: Saravanan Santana M.D. 09/27/2017 9:11 PM Dictated Date/Time: 09/27/2017 9:06 PM
--- NOTE | 2017-09-27 21:19 | DIAGNOSTIC IMAGING REPORT ---
CT ABD/PELVIS IV CONTRAST ONLY CLINICAL HISTORY: Multiple myeloma. Tachycardia. Shortness of breath. Possible sepsis. COMPARISON STUDY: May 19, 2018 TECHNIQUE: Following the IV administration of 100 mL of Optiray-320, CT scan of the abdomen and pelvis was performed from the lung bases to the proximal femurs. Images are reviewed in the axial, sagittal, and coronal planes. IV contrast was administered without complication. A dose lowering technique was utilized adhering to the principles of ALARA. CT DOSE: 1344.91 mGy.cm FINDINGS: Lower chest: There is pulmonary emphysema. There is lower lobe bronchial wall thickening. There is basilar atelectasis. Liver: The contrast-enhanced liver is normal in size, contour, and attenuation. There is no intrahepatic biliary ductal dilatation. The hepatic veins and portal veins are patent. Gallbladder: Unremarkable. Spleen: Normal in size and attenuation. Pancreas: Unremarkable. Adrenal glands: Unremarkable. Kidneys: There is symmetric renal cortical enhancement. The kidneys are normal in size without hydronephrosis. Bowel: There are no transition zones indicate bowel obstruction. There is acute sigmoid diverticulitis. There are no findings to indicate a peridiverticular abscess. The appendix appears normal. Peritoneum: There is no intraperitoneal free air or abdominal ascites. Vasculature: Advanced atheromatous changes are present within the distal aorta and iliac vessels. 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 Adenopathy: There is an enlarged anterior pericardial lymph node measuring 2.5 cm. There are enlarged lymph nodes within the gastrohepatic ligament. There are enlarged peripancreatic lymph nodes. There are enlarged aortocaval lymph nodes. Pelvic viscera: There are prostatic calcifications. Skeletal structures: There is widespread lytic bone disease. IMPRESSION: 1. Extensive lytic bone disease similar to the prior study. The findings are consistent with metastatic disease or myeloma 2. Moderate adenopathy 3. Worsening acute sigmoid diverticulitis. No evidence of peridiverticular abscess 4. Normal appendix 5. No evidence of bowel obstruction. No evidence of free air Electronically signed by: Saravanan Santana M.D. 09/27/2017 9:18 PM Dictated Date/Time: 09/27/2017 9:12 PM
[2017-09-27] MEDS: NSS + 20MEQ KCL 1000ML 1,000 ML IV SCH (21:58)
[2017-09-27] MEDS: VANCOMYCIN INJ 1,250 MG in SODIUM CHLORIDE 0.9% 250ML 250 ML IV SCH (22:01)
[2017-09-27] MEDS: PIPERACILL/TAZOBAC IV 3.375 GM in DEXTROSE 5% 100ML 100 ML IV SCH (22:06)
[2017-09-27] MEDS: DOCUSATE SODIUM/SENNA 50/8.6MG TAB PO SCH (22:10)
[2017-09-27] MEDS: ENOXAPARIN 40 MG/0.4 ML SYR SC SCH (22:13)
[2017-09-27 23:10] VITALS: BP 102/63; PULSE 107
[2017-09-27 23:20] VITALS: BP 84/61; PULSE 102; TEMP 36.9; O2SAT 98
--- NOTE | 2017-09-27 23:29 | History and Physical ---
History & Physical Date & Time of Service: Sep 27, 2017 at 23:16 Chief Complaint: Multiple Myeloma, Sepsis Primary Care Physician: Valeria Lackey C.R.N.P. History of Present Illness Source: patient, family, hospital records The patient is a 57-year-old white male with recently diagnosed multiple myeloma , status post [address] [facility] 10 days ago, who presents to the hospital with 1 day of worsening sweats, fevers, chills, fatigue, generalized myalgias and arthralgias, back pain and groin irritation. His family called her she physician, who referred the patient to the emergency department tonight. Family History Cancer Social History Smoking Status: Former Smoker Smokeless Tobacco Use: No Alcohol Use: none Drug Use: none Marital Status: Housing status: lives with family Occupational Status: employed Immunizations History of Influenza Vaccine: Unknown History of Tetanus Vaccine?: Unknown History of Pneumococcal: Unknown History of Hepatitis B Vaccine: Unknown Multi-Drug Resistant Organisms History of MDRO: No Allergies Coded Allergies: Atorvastatin (Verified Adverse Reaction, Unknown, myalgias, 09/27/17) Simvastatin (Verified Adverse Reaction, Unknown, myalgias, 09/27/17) Home Medications Scheduled Aspirin (Aspirin Ec), 81 MG PO DAILY Garlic (Garlic), 500 MG PO QAM Metoprolol Succinate (Toprol Xl), 25 MG PO HS Adrian-3 Fatty Acids (Fish Oil), 1 CAP PO QAM Pravastatin Sodium (Pravachol), 20 MG PO HS Sennosides-Docusate Sodium (Docusate Sodium/Senna), 1 TAB PO BID Scheduled PRN Cyclobenzaprine Hcl (Flexeril), 5 MG PO BID PRN for Muscle Spasms Oxycodone Hcl (Oxycodone Hcl), 1 TAB PO Q4H PRN for Moderate Pain Review of Systems The patient denies chest pain, palpitations, shortness of breath, dyspnea on exertion, cough, sore throat, nausea, vomiting, diarrhea , constipation, abdominal pain, pelvic pain, blood in urine or stool, dysuria, urinary frequency or urgency, memory loss, loss of consciousness, abnormal bruising or bleeding, focal weakness, numbness or tingling in arms or legs, neck pain, or night sweats. The review of systems is otherwise negative other than for that already noted above, and at least 10 systems have been reviewed. Physical Exam Vital Signs Date Time Temp Pulse Resp B/P (MAP) Pulse Ox O2 Delivery O2 Flow Rate FiO2 09/27/17 20:30 122 24 102/53 96 Nasal Cannula 2.0 09/27/17 20:00 123 24 102/53 96 Nasal Cannula 2.0 09/27/17 19:09 127 18 105/68 96 Room Air 09/27/17 19:06 127 09/27/17 18:51 129 19 95 Room Air 09/27/17 18:21 128 19 96 09/27/17 18:05 91/58 09/27/17 18:05 128 20 91/58 95 Room Air 09/27/17 17:51 127 25 94 09/27/17 17:48 126 21 76/48 95 Room Air 09/27/17 17:47 76/48 09/27/17 16:16 118 21 90 09/27/17 16:11 110 24 90 09/27/17 16:06 111 19 92 09/27/17 15:07 109 09/27/17 15:06 112 18 09/27/17 15:05 106 18 98/56 98 09/27/17 15:04 98/56 09/27/17 13:42 37.1 129 16 121/73 93 Room Air The patient is awake, looks acutely ill and septic, having difficulty responding to questions due to severe generalized pain and rigors. HEENT--PERRL, EOMI, mucous membranes and oropharynx very dry. Neck--supple. No JVD. No bruits. Thyroid normal, trachea midline, no adenopathy. Heart--tachycardic and regular. Normal S1 and S2. No murmurs, rubs or gallops. Lungs--clear bilaterally, no respiratory distress, no accessory muscle use. Abdomen--decreased bowel sounds and soft. Generalized tenderness. Mildly distended and tympanitic. Extremities--no cyanosis or clubbing. No edema. There are good distal pulses b/ l. Dermatologic--mild rash in groin and perineal area. Neurologic--cranial nerves II through XII grossly intact. Rheumatologic--normal range of motion. Psychiatric--normal affect. Diagnostics Laboratory Results Results Past 24 Hours Test 09/27/17 13:40 09/27/17 14:30 09/27/17 15:44 09/27/17 17:10 Range/Units Sodium Level 130 136-145 mmol/L Potassium Level 3.7 3.5-5.1 mmol/L Chloride Level 97 98-107 mmol/L Carbon Dioxide Level 28 21-32 mmol/L Anion Gap 5.0 3-11 mmol/L Blood Urea Nitrogen 20 7-18 mg/dl Creatinine 1.13 0.60-1.40 mg/dl Estimated GFR () 82.0 Estimated GFR (Non- 70.8 BUN/Creatinine Ratio 17.5 10-20 Random Glucose 77 70-99 mg/dl Lactic Acid Level 1.3 0.4-2.0 mmol/L Calcium Level 7.7 8.5-10.1 mg/dl Total Bilirubin 0.4 0.2-1 mg/dl Direct Bilirubin 0.1 0-0.2 mg/dl Aspartate Amino Transf (AST/SGOT) 21 15-37 U/L Alanine Aminotransferase (ALT/SGPT) 22 12-78 U/L Alkaline Phosphatase 85 45-117 U/L Total Creatine Kinase 32 39-308 U/L Troponin I 0.044 0-0.045 ng/ml Total Protein 9.5 6.4-8.2 gm/dl Albumin 2.1 3.4-5.0 gm/dl Lipase 167 73-393 U/L White Blood Count 8.74 4.8-10.8 K/uL Red Blood Count 2.41 4.7-6.1 M/uL Hemoglobin 8.3 14.0-18.0 g/dL Hematocrit 24.3 42-52 % Mean Corpuscular Volume 100.8 80-100 fL Mean Corpuscular Hemoglobin 34.4 25-34 pg Mean Corpuscular Hemoglobin Concent 34.2 32-36 g/dl Platelet Count 186 130-400 K/uL Mean Platelet Volume 8.5 7.4-10.4 fL Neutrophils (%) (Auto) 61.5 % Lymphocytes (%) (Auto) 24.8 % Monocytes (%) (Auto) 8.9 % Eosinophils (%) (Auto) 0.7 % Basophils (%) (Auto) 0.1 % Neutrophils # (Auto) 5.37 1.4-6.5 K/uL Lymphocytes # (Auto) 2.17 1.2-3.4 K/uL Monocytes # (Auto) 0.78 0.11-0.59 K/uL Eosinophils # (Auto) 0.06 0-0.5 K/uL Basophils # (Auto) 0.01 0-0.2 K/uL RDW Standard Deviation 58.3 36.4-46.3 fL RDW Coefficient of Variation 15.9 11.5-14.5 % Immature Granulocyte % (Auto) 4.0 % Immature Granulocyte # (Auto) 0.35 0.00-0.02 K/uL Nucleated RBC Absolute Count (auto) 0.12 0-0 K/uL Nucleated Red Blood Cells % 1.4 % Polychromasia 1+ Basophilic Stippling 1+ Prothrombin Time 11.5 9.0-12.0 SECONDS Prothromb Time International Ratio 1.1 0.9-1.1 Activated Partial Thromboplast Time 21.0 21.0-31.0 SECONDS Partial Thromboplastin Ratio 0.8 Influenza Type A Antigen Neg for Influ A NEG Influenza Type B Antigen Neg for Influ B NEG Venous Blood pH 7.35 7.36-7.41 Venous Blood Partial Pressure CO2 51 38.0-50.0 mmHg Venous Blood Partial Pressure O2 24 mmHg Venous Blood HCO3 27 mmol/L Venous Blood Oxygen Saturation < 60.0 % Venous Blood Base Excess 1.2 mEq/L Urine Color YELLOW Urine Appearance CLEAR CLEAR Urine pH 5.5 4.5-7.5 Urine Specific [place] 1.019 1.000-1.030 Urine Protein NEG NEG Urine Glucose (UA) NEG NEG Urine Ketones NEG NEG Urine Occult Blood NEG NEG Urine Nitrite NEG NEG Urine Bilirubin NEG NEG Urine Urobilinogen NEG NEG Urine Leukocyte Esterase NEG NEG Urine WBC (Auto) 1-5 0-5 /hpf Urine RBC (Auto) 0-4 0-4 /hpf Urine Hyaline Casts (Auto) 0 0-5 /lpf Urine Epithelial Cells (Auto) 0-5 0-5 /lpf Urine Bacteria (Auto) NEG NEG Test 09/27/17 23:08 Range/Units Microbiology Results 09/27/17 Blood Culture, Received Pending 09/27/17 Blood Culture, Received Pending 09/27/17 Urine Culture, Received Pending Diagnostic Radiology Patient Name: KAITLIN BUI Unit Number: [id number] Dictated: 09/27/17 1635 Transcribed: 09/27/17 1636 ARG Printed Date/Time: [~ rep prt dt]/[~ rep prt tm] [~ rep ct labl] - [~ rep ct ivnm] [facility] [place] [address] Dictated: 09/27/171634 Transcribed: 09/27/17 163 ARG Printed Date/Time: [~ rep prt dt]/[~ rep prt tm] [~ rep ct labl] - [~ rep ct ivnm] [~ rep ct add3]] CT HEAD WITHOUT CONTRAST (CT) CLINICAL HISTORY: Altered mental status MULTIPLE MYELOMA COMPARISON STUDY: No previous studies for comparison. TECHNIQUE: Axial CT of the brain is performed from the vertex to the skull base. IV contrast was not administered for this examination. A dose lowering technique was utilized adhering to the principles of ALARA. CT DOSE: 614.27 mGy.cm FINDINGS: No intra or extra-axial mass lesions are visualized. There is no CT evidence of acute cortical infarction. There is no evidence of midline shift. There is no acute hemorrhage. No calvarial fractures are visualized. There are patchy minimal matter hypodensities likely on a small vessel basis. There is a left basal ganglia lacunar infarct versus dilated perivascular space. There is no evidence of pathologic ventricular dilatation. There is no evidence of acute sinusitis. There is a 16 mm lytic focus within the left anterior parietal bone IMPRESSION: 1. No acute intracranial findings 2. 16 mm lytic focus involving the left anterior parietal bone Electronically signed by: Saravanan Santana M.D. 09/27/2017 4:43 PM Dictated Date/Time: 09/27/2017 4:35 PM The status of this report is Signed. Draft = Not yet reviewed or approved by Radiologist. Signed = Reviewed and approved by Radiologist. <AttendingPhy></AttendingPhy> <FamilyPhy>Valeria Lackey C.RNikosN.PNikos</FamilyPhy> <PrimaryPhy>Valeria Lackey C.R.N.P.</PrimaryPhy> <UnitNumber>[id number]</ UnitNumber> <VisitNumber>[id number]</VisitNumber> <PatientName>KAITLIN BUI< /PatientName> <DateOfBirth>1960</DateOfBirth> <Location>[facility]</Location> < ServiceDate>09/27/17</ServiceDate> <MNE>ESINDI</MNE> <OrderingPhy>Kirill Gann M.D.</OrderingPhy> <OrderingPhyMNE>f rep ord dr tejada</OrderingPhyMNE> < DictatingPhyMNE>f rep dict dr tejada</DictatingPhyMNE> <CCListMNE>f rep ct mnyahaira</ CCListMNE> <AdmittingPhyMNE>f pt admit dr tejada</AdmittingPhyMNE> <AttendingPhyMNE >f pt attend dr tejada</AttendingPhyMNE> <ConsultingPhyMNE>f pt consult dr tejada</ConsultingPhyMNE> <FamilyPhyMNE>f pt fam dr tejada</FamilyPhyMNE> <OtherPhyMNE>f pt other dr tejada</OtherPhyMNE> < PrimaryPhyMNE>f pt prim care dr tejada</PrimaryPhyMNE> <ReferringPhyMNE>f pt referring dr tejada</ReferringPhyMNE> Patient Name: KAITLIN BUI Unit Number: [id number] Dictated: 09/27/171450 Transcribed: 09/27/171450 ARG Printed Date/Time: [~ rep prt dt]/[~ rep prt tm] [~ rep ct labl] - [~ rep ct ivnm] [facility] Radiology Department [place] [id number] Dictated: 09/27/171450 Transcribed: 09/27/171450 ARG Printed Date/Time: [~ rep prt dt]/[~ rep prt tm] [~ rep ct labl] - [~ rep ct ivnm] [~ rep ct add3]] CHEST ONE VIEW PORTABLE CLINICAL HISTORY: Fever, sepsis COMPARISON STUDY: September 12, 2017 FINDINGS: The cardiac and mediastinal contours are normal. There is no evidence of focal pulmonary consolidation. There is no evidence of failure. No pleural effusions are visualized.[ There are mild basilar atelectatic changes. There are postsurgical changes present within the thoracic spine. There is pulmonary emphysema. IMPRESSION: No active disease in the chest. Electronically signed by: Saravanan Santana M.D. 09/27/2017 2:51 PM Dictated Date/Time: 09/27/2017 2:51 PM The status of this report is Signed. Draft = Not yet reviewed or approved by Radiologist. Signed = Reviewed and approved by Radiologist. <AttendingPhy></AttendingPhy> <FamilyPhy>Valeria Lackey, C.R.N.P.</FamilyPhy> <PrimaryPhy>Valeria Lackey C.R.N.P.</PrimaryPhy> <UnitNumber>[id number]</ UnitNumber> <VisitNumber>[id number]</VisitNumber> <PatientName>PILI BUIEN Mala< /PatientName> <DateOfBirth>1960</DateOfBirth> <Location>[facility]</Location> < ServiceDate>09/27/17</ServiceDate> <MNE>ESINDI</MNE> <OrderingPhy>Kirill Gann M.D.</OrderingPhy> <OrderingPhyMNE>f rep ord dr tejada</OrderingPhyMNE> < DictatingPhyMNE>f rep dict dr tejada</DictatingPhyMNE> <CCListMNE>f rep ct mne</ CCListMNE> <AdmittingPhyMNE>f pt admit dr tejada</AdmittingPhyMNE> <AttendingPhyMNE >f pt attend dr tejada</AttendingPhyMNE> <ConsultingPhyMNE>f pt consult dr tejada</ConsultingPhyMNE> <FamilyPhyMNE>f pt fam dr tejada</FamilyPhyMNE> <OtherPhyMNE>f pt other dr tejada</OtherPhyMNE> < PrimaryPhyMNE>f pt prim care dr tejada</PrimaryPhyMNE> <ReferringPhyMNE>f pt referring dr tejada</ReferringPhyMNE> Patient Name: KAITLIN BUI Unit Number: [id number] Dictated: 09/27/172105 Transcribed: 09/27/172105 ARG Printed Date/Time: [~ rep prt dt]/[~ rep prt tm] [~ rep ct labl] - [~ rep ct ivnm] [facility] [place] [place] [address] Dictated: 09/27/172105 Transcribed: 09/27/172105 ARG Printed Date/Time: [~ rep prt dt]/[~ rep prt tm] [~ rep ct labl] - [~ rep ct ivnm] [~ rep ct add3]] CT ANGIOGRAM OF THE CHEST CLINICAL HISTORY: Multiple myeloma. Tachycardia. Sepsis. Shortness of breath. COMPARISON STUDY: September 19, 2017 TECHNIQUE: Following the IV administration of 100 mL of Optiray-320, CT angiogram of the thorax was performed from the thoracic inlet to the lung bases utilizing the pulmonary embolus protocol. Images are reviewed in the axial, sagittal, and coronal planes. IV contrast was administered without complication. MIP imaging was performed. A dose lowering technique was utilized adhering to the principles of ALARA. CT DOSE: FINDINGS: There is an enlarged 14 mm precarinal lymph node. There is a large subcarinal lymph node measuring 21 mm. There is enlarged internal mammary lymph node measuring 17 mm. There is mild right hilar adenopathy. There is a left hilar node at the upper limits of normal in size. There was no evidence of thoracic aortic dilatation. There were no pulmonary artery filling defects to indicate acute pulmonary embolism. No pleural effusions are visualized. There is mild lower lobe bronchial wall thickening. There are lower lobe dependent atelectatic changes. There is pulmonary emphysema. There is multifocal lytic bone disease. IMPRESSION: 1. No evidence of acute pulmonary embolism 2. Mediastinal lymphadenopathy 3. Extensive lytic bone disease 4. Emphysema Electronically signed by: Saravanan Santana M.D. 09/27/2017 9:11 PM Dictated Date/Time: 09/27/2017 9:06 PM The status of this report is Signed. Draft = Not yet reviewed or approved by Radiologist. Signed = Reviewed and approved by Radiologist. <AttendingPhy>Paddy Kolb M.D.</AttendingPhy> <FamilyPhy>Valeria Lackey C.R.N.PNikos</FamilyPhy> <PrimaryPhy>Valeria Lackey C.R.N.P.</PrimaryPhy> < UnitNumber>[id number]</UnitNumber> <VisitNumber>[id number]</VisitNumber> < PatientName>KAITLIN BUI</PatientName> <DateOfBirth>1960</DateOfBirth> < Location>[facility]</Location> <ServiceDate>09/27/17</ServiceDate> <MNE>ESINDI</MNE> < OrderingPhy>Kirill Gann M.D.</OrderingPhy> <OrderingPhyMNE>f rep ord dr tejada</ OrderingPhyMNE> <DictatingPhyMNE>f rep dict dr tejada</DictatingPhyMNE> <CCListMNE> f rep ct mne</CCListMNE> <AdmittingPhyMNE>f pt admit dr tejada</AdmittingPhyMNE> < AttendingPhyMNE>f pt attend dr tejada</AttendingPhyMNE> <ConsultingPhyMNE>f pt consult dr tejada</ConsultingPhyMNE> <FamilyPhyMNE>f pt fam dr tejada</FamilyPhyMNE> <OtherPhyMNE>f pt other dr tejada</OtherPhyMNE> < PrimaryPhyMNE>f pt prim care dr tejada</PrimaryPhyMNE> <ReferringPhyMNE>f pt referring dr tejada</ReferringPhyMNE> Patient Name: KAITLIN BUI Unit Number: [id number] Dictated: 09/27/172111 Transcribed: 09/27/172111 ARG Printed Date/Time: [~ rep prt dt]/[~ rep prt tm] [~ rep ct labl] - [~ rep ct ivnm] [facility] [place] [place] [address] Dictated: 09/27/172111 Transcribed: 09/27/172111 ARG Printed Date/Time: [~ rep prt dt]/[~ rep prt tm] [~ rep ct labl] - [~ rep ct ivnm] [~ rep ct add3]] CT ABD/PELVIS IV CONTRAST ONLY CLINICAL HISTORY: Multiple myeloma. Tachycardia. Shortness of breath. Possible sepsis. COMPARISON STUDY: May 19, 2018 TECHNIQUE: Following the IV administration of 100 mL of Optiray-320, CT scan of the abdomen and pelvis was performed from the lung bases to the proximal femurs. Images are reviewed in the axial, sagittal, and coronal planes. IV contrast was administered without complication. A dose lowering technique was utilized adhering to the principles of ALARA. CT DOSE: 1344.91 mGy.cm FINDINGS: Lower chest: There is pulmonary emphysema. There is lower lobe bronchial wall thickening. There is basilar atelectasis. Liver: The contrast-enhanced liver is normal in size, contour, and attenuation. There is no intrahepatic biliary ductal dilatation. The hepatic veins and portal veins are patent. Gallbladder: Unremarkable. Spleen: Normal in size and attenuation. Pancreas: Unremarkable. Adrenal glands: Unremarkable. Kidneys: There is symmetric renal cortical enhancement. The kidneys are normal in size without hydronephrosis. Bowel: There are no transition zones indicate bowel obstruction. There is acute sigmoid diverticulitis. There are no findings to indicate a peridiverticular abscess. The appendix appears normal. Peritoneum: There is no intraperitoneal free air or abdominal ascites. Vasculature: Advanced atheromatous changes are present within the distal aorta and iliac vessels. 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 Adenopathy: There is an enlarged anterior pericardial lymph node measuring 2.5 cm. There are enlarged lymph nodes within the gastrohepatic ligament. There are enlarged peripancreatic lymph nodes. There are enlarged aortocaval lymph nodes. Pelvic viscera: There are prostatic calcifications. Skeletal structures: There is widespread lytic bone disease. IMPRESSION: 1. Extensive lytic bone disease similar to the prior study. The findings are consistent with metastatic disease or myeloma 2. Moderate adenopathy 3. Worsening acute sigmoid diverticulitis. No evidence of peridiverticular abscess 4. Normal appendix 5. No evidence of bowel obstruction. No evidence of free air Electronically signed by: Saravanan Santana M.D. 09/27/2017 9:18 PM Dictated Date/Time: 09/27/2017 9:12 PM The status of this report is Signed. Draft = Not yet reviewed or approved by Radiologist. Signed = Reviewed and approved by Radiologist. <AttendingPhy>Paddy Kolb M.D.</AttendingPhy> <FamilyPhy>Valeria Lackey, C.R.N.P.</FamilyPhy> <PrimaryPhy>Valeria Lackey, C.R.N.P.</PrimaryPhy> < UnitNumber>[id number]</UnitNumber> <VisitNumber>[id number]</VisitNumber> < PatientName>KAITLIN BUI</PatientName> <DateOfBirth>1960</DateOfBirth> < Location>[facility]</Location> <ServiceDate>09/27/17</ServiceDate> <MNE>ESINDI</MNE> < OrderingPhy>Kirill Gann M.D.</OrderingPhy> <OrderingPhyMNE>f rep ord dr tejada</ OrderingPhyMNE> <DictatingPhyMNE>f rep dict dr tejada</DictatingPhyMNE> <CCListMNE> f rep ct mne</CCListMNE> <AdmittingPhyMNE>f pt admit dr tejada</AdmittingPhyMNE> < AttendingPhyMNE>f pt attend dr tejada</AttendingPhyMNE> <ConsultingPhyMNE>f pt consult dr tejada</ConsultingPhyMNE> <FamilyPhyMNE>f pt fam dr tejada</FamilyPhyMNE> <OtherPhyMNE>f pt other dr tejada</OtherPhyMNE> < PrimaryPhyMNE>f pt prim care dr tejada</PrimaryPhyMNE> <ReferringPhyMNE>f pt referring dr tejada</ReferringPhyMNE> EKG EKG shows sinus tachycardia at 101 bpm, with nonspecific lateral ST segment changes, no change compared to September 19, 2017. Monitor in ED shows consistent heart rate in the 130-135 range during the examination and afterwards. Impression Assessment and Plan Acute sigmoid diverticulitis/sepsis/tachycardia-- N.p.o. except essential medications Vancomycin IV Zosyn IV Levofloxacin IV Pantoprazole 40 mg IV daily. Zofran 4 mg IV every 6 hours as needed, with repeat in 30 minutes if needed. Follow blood cultures Continue aggressive IV fluid rehydration with normal saline 150 mils per hour Discussed with family that his blood pressure may drop and may require transfer to the ICU. PICC line has been ordered and placed in the ED Consult infectious disease Dr. Salgado. Multiple myeloma/anemia-- Newly diagnosed. Has a tentative appointment with Dr. Irwin. Type and screen. Present hemoglobin is 8.3 but is likely hemoconcentrated as discussed with family. Expect patient will need a transfusion if blood pressure drops and/or heart rate increases or maintains elevation. Consult oncology Dr. Irwin. Lumbar surgery with ten placement at [facility]-- Cover with broad-spectrum antibiotics. Generalized myalgias and arthralgias-- May be secondary to sepsis, multiple myeloma, and/or recent surgery. Acetaminophen IV or oral for mild pain or temperature. Oxycodone 10 mg p.o. every 4 hours as needed moderate pain... Continued from outpatient. Morphine sulfate 4 mg IV every 2 hours as needed severe pain. Hyperlipidemia-- Hold pravastatin for now. Muscle spasms-- Increase his cyclobenzaprine from 5 mg p.o. twice daily as needed to 10 mg p.o. 4 times daily as needed. Level of Care Telemetry Advanced Directives Existing Advance Directive: No Existing Living Will: No Existing Power of [place]: No Resuscitation Status FULL RESUSCITATION VTE Prophylaxis VTE Risk Assessment Done? Y/N: Yes Risk Level: Moderate Given or contraindicated: SCD's Social Service Consult Cancer Patient Under [place] Note Total Time: Critical Care 30 - 74 minutes
[2017-09-27 23:30] VITALS: BP 87/61; PULSE 100
[2017-09-27 23:35] LABS: HEMATOCRIT 24.2 % (42-52); HEMOGLOBIN 8.1 g/dL (14.0-18.0)
[2017-09-27 23:57] LABS: BLOOD UREA NITROGEN 17 mg/dl (7-18); CALCIUM 7.2 mg/dl (8.5-10.1); CARBON DIOXIDE 23 mmol/L (21-32); CREATININE 1.16 mg/dl (0.60-1.40); GLUCOSE 71 mg/dl (70-99); POTASSIUM 4.1 mmol/L (3.5-5.1); SODIUM 129 mmol/L (136-145)
[2017-09-28] VITALS (70 sets, daily range): BP systolic 75–139; BP diastolic 46–84; PULSE 91–127; TEMP 36.5–39.3; O2SAT 91–99
[2017-09-28] MEDS ORDERED: LEVOFLOXACIN / D5W 500 MG in PREMIXED IN D5W 100 ML IV SCH
[2017-09-28] MEDS: ACETAMINOPHEN IV 100 ML IV PRN (02:22)
[2017-09-28] MEDS: NSS + 20MEQ KCL 1000ML 1,000 ML IV SCH ×4 (04:02→23:30)
[2017-09-28 05:04] LABS: INR 1.3 (0.9-1.1); PTT PATIENT 26.8 SECONDS (21.0-31.0)
[2017-09-28 05:15] LABS: ALBUMIN 1.7 gm/dl (3.4-5.0); CALCIUM 7.3 mg/dl (8.5-10.1); CREATININE 1.07 mg/dl (0.60-1.40); POTASSIUM 3.9 mmol/L (3.5-5.1)
[2017-09-28 05:25] LABS: HEMATOCRIT 19.6 % (42-52); HEMOGLOBIN 6.9 g/dL (14.0-18.0); MEAN CELL VOLUME 100.5 fL (80-100); MEAN CORPUSCULAR HEMOGLOBIN 35.4 pg (25-34); MEAN CORPUSCULAR HGB CONC 35.2 g/dl (32-36); MEAN PLATELET VOLUME 8.6 fL (7.4-10.4); NUCLEATED RED BLOOD CELL ABS 0.06 K/uL (0-0); PLATELET COUNT 131 K/uL (130-400); RED CELL DISTRIBUTION WIDTH CV 16.1 % (11.5-14.5); RED CELL DISTRIBUTION WIDTH SD 58.8 fL (36.4-46.3); WHITE BLOOD COUNT 4.34 K/uL (4.8-10.8)
[2017-09-28 05:30] LABS: TOTAL PROTEIN 7.8 gm/dl (6.4-8.2)
[2017-09-28 05:41] LABS: EOS % 0.5 %; EOS ABS # 0.02 K/uL (0-0.5); IG# 0.21 K/uL (0.00-0.02); LYMPH % 16.1 %; MONO % 9.7 %; MONO ABS # 0.42 K/uL (0.11-0.59); NEUT % 68.9 %; NEUT ABS # 2.99 K/uL (1.4-6.5)
[2017-09-28] MEDS: PIPERACILL/TAZOBAC IV 3.375 GM in DEXTROSE 5% 100ML 100 ML IV SCH ×3 (06:07→22:02)
[2017-09-28] MEDS ORDERED: PERFLUTREN LIPID MICROSPHERE (DEFINITY) IV ONE (07:24)
[2017-09-28] MEDS: DOCUSATE SODIUM/SENNA 50/8.6MG TAB PO SCH (07:35)
--- NOTE | 2017-09-28 08:49 | Progress Note ---
Subjective Date of Service: Sep 28, 2017. Subjective Pt evaluation today including: conversation w/ patient, conversation w/ family ( by phone), physical exam, chart review, lab review, review of studies (CT chest, abd, pelvis, head), conversation w/ internet consultant (ICU), review of inpatient medication list Pain: "all over" but particularly his back and abdomen PO Intake: no appetite; didn't eat breakfast Voiding: voiding difficulty events of overnight reviewed remained tachycardic and hypotensive all evening this AM he is sleepy, confused, and it is difficult to get history from him he does report back pain - maybe worse than when he got home from [place] on Friday of this week c/o lower abdominal pain and groin pain reports recent changes in stools over the last few months but no melena or BRBPR he does confirm he was told he had cancer at [facility] and that "it is in my blood" c/o chest discomfort w/ coughing some headache no ear pain but reports "ringing" Problem List Medical Problems: (1) Dehydration Status: Acute (2) Rib pain on right side Status: Acute Review of Systems Constitutional: + fever, + weakness, + fatigue ENT: + tinnitus, No sore throat Respiratory: + cough, + sputum, No wheezing, No dyspnea at rest Cardiac: + chest pain (with coughing only) Abdomen: + pain, No nausea, No vomiting, No diarrhea, No constipation, No GI bleeding Musculoskeletal: + muscle pain ("all over") Objective Vital Signs Date Time Temp Pulse Resp B/P (MAP) Pulse Ox O2 Delivery O2 Flow Rate FiO2 09/28/17 08:13 36.9 113 20 95/57 95 2.0 09/28/17 08:00 36.8 110 20 88/55 92 09/28/17 07:30 36.8 112 20 87/63 93 2.0 09/28/17 07:25 20 09/28/17 07:10 36.5 105 20 88/65 92 2.0 09/28/17 06:50 37.4 108 89/66 09/28/17 06:30 109 93/62 (72) 09/28/17 06:00 105 91/65 (74) 09/28/17 05:30 118 101/66 (78) 09/28/17 05:00 111 89/62 (71) 09/28/17 04:19 37.6 114 20 93/62 (72) 92 Nasal Cannula 2.0 09/28/17 04:00 92 Nasal Cannula 2.0 09/28/17 03:00 120 83/57 (66) 09/28/17 02:30 121 85/58 (67) 09/28/17 02:20 39.3 09/28/17 02:00 127 105/74 (84) 09/28/17 01:30 120 102/64 (77) 09/28/17 01:00 111 90/61 (71) 09/28/17 00:30 100 92/64 (73) 09/28/17 00:00 93 Nasal Cannula 2.0 09/28/17 00:00 110 104/69 (81) 09/27/17 23:30 100 87/61 (70) 09/27/17 23:20 36.9 102 20 84/61 (69) 98 Nasal Cannula 2.0 09/27/17 23:10 107 102/63 (76) 09/27/17 21:10 37.4 120 18 96/67 93 Nasal Cannula 2.0 09/27/17 20:30 122 24 102/53 96 Nasal Cannula 2.0 09/27/17 20:00 123 24 102/53 96 Nasal Cannula 2.0 09/27/17 19:09 127 18 105/68 96 Room Air 09/27/17 19:06 127 09/27/17 18:51 129 19 95 Room Air 09/27/17 18:21 128 19 96 09/27/17 18:05 91/58 09/27/17 18:05 128 20 91/58 95 Room Air 09/27/17 17:51 127 25 94 09/27/17 17:48 126 21 76/48 95 Room Air 09/27/17 17:47 76/48 09/27/17 16:16 118 21 90 09/27/17 16:11 110 24 90 09/27/17 16:06 111 19 92 09/27/17 15:07 109 09/27/17 15:06 112 18 09/27/17 15:05 106 18 98/56 98 09/27/17 15:04 98/56 09/27/17 13:42 37.1 129 16 121/73 93 Room Air Physical Exam General Appearance: + mild distress (uncomfortable appearing; toxic/ill- appearing) ENT: + TM dull (right, with mild clear fluid and retraction but landmarks preserved and no inflammation; left TM clear), + pertinent finding (MM severely dry) Neck: supple Respiratory/Chest: no respiratory distress, no accessory muscle use, + decreased breath sounds, + pertinent finding (no rales or wheeze) Cardiovascular: no gallop, + tachycardia, + systolic murmur (2/6 LLSB, ISAAC) Abdomen: no organomegaly, no pulsatile mass, + distended (mild), + tenderness ( LLQ and suprapubic area) Extremities: no pedal edema, + pertinent finding (cool extremities) Neurologic/Psychiatric: + pertinent finding (sleepy, confused; strength in both legs 5/5) Skin: + pertinent finding (PICC line in place RUE; incision, thoracic region, with intact jahaira/ no erythema/no drainage; no associated tenderness) Comments: GILMER - prostate enlarged but smooth and w/o nodules; no bogginess. Very scant stool, if any, and was brown. No gross blood. No rectal masses. Laboratory Results Last 24 Hours Test 09/27/17 13:40 09/27/17 14:30 09/27/17 15:44 09/27/17 17:10 Sodium Level 130 mmol/L Potassium Level 3.7 mmol/L Chloride Level 97 mmol/L Carbon Dioxide Level 28 mmol/L Anion Gap 5.0 mmol/L Blood Urea Nitrogen 20 mg/dl Creatinine 1.13 mg/dl Estimated GFR () 82.0 Estimated GFR (Non- 70.8 BUN/Creatinine Ratio 17.5 Random Glucose 77 mg/dl Lactic Acid Level 1.3 mmol/L Calcium Level 7.7 mg/dl Total Bilirubin 0.4 mg/dl Direct Bilirubin 0.1 mg/dl Aspartate Amino Transf (AST/SGOT) 21 U/L Alanine Aminotransferase (ALT/SGPT) 22 U/L Alkaline Phosphatase 85 U/L Total Creatine Kinase 32 U/L Troponin I 0.044 ng/ml Total Protein 9.5 gm/dl Albumin 2.1 gm/dl Lipase 167 U/L White Blood Count 8.74 K/uL Red Blood Count 2.41 M/uL Hemoglobin 8.3 g/dL Hematocrit 24.3 % Mean Corpuscular Volume 100.8 fL Mean Corpuscular Hemoglobin 34.4 pg Mean Corpuscular Hemoglobin Concent 34.2 g/dl Platelet Count 186 K/uL Mean Platelet Volume 8.5 fL Neutrophils (%) (Auto) 61.5 % Lymphocytes (%) (Auto) 24.8 % Monocytes (%) (Auto) 8.9 % Eosinophils (%) (Auto) 0.7 % Basophils (%) (Auto) 0.1 % Neutrophils # (Auto) 5.37 K/uL Lymphocytes # (Auto) 2.17 K/uL Monocytes # (Auto) 0.78 K/uL Eosinophils # (Auto) 0.06 K/uL Basophils # (Auto) 0.01 K/uL RDW Standard Deviation 58.3 fL RDW Coefficient of Variation 15.9 % Immature Granulocyte % (Auto) 4.0 % Immature Granulocyte # (Auto) 0.35 K/uL Nucleated RBC Absolute Count (auto) 0.12 K/uL Nucleated Red Blood Cells % 1.4 % Polychromasia 1+ Basophilic Stippling 1+ Prothrombin Time 11.5 SECONDS Prothromb Time International Ratio 1.1 Activated Partial Thromboplast Time 21.0 SECONDS Partial Thromboplastin Ratio 0.8 Influenza Type A Antigen Neg for Influ A Influenza Type B Antigen Neg for Influ B Venous Blood pH 7.35 Venous Blood Partial Pressure CO2 51 mmHg Venous Blood Partial Pressure O2 24 mmHg Venous Blood HCO3 27 mmol/L Venous Blood Oxygen Saturation < 60.0 % Venous Blood Base Excess 1.2 mEq/L Urine Color YELLOW Urine Appearance CLEAR Urine pH 5.5 Urine Specific [place] 1.019 Urine Protein NEG Urine Glucose (UA) NEG Urine Ketones NEG Urine Occult Blood NEG Urine Nitrite NEG Urine Bilirubin NEG Urine Urobilinogen NEG Urine Leukocyte Esterase NEG Urine WBC (Auto) 1-5 /hpf Urine RBC (Auto) 0-4 /hpf Urine Hyaline Casts (Auto) 0 /lpf Urine Epithelial Cells (Auto) 0-5 /lpf Urine Bacteria (Auto) NEG Test 09/27/17 23:27 09/28/17 04:37 09/28/17 08:05 09/28/17 08:08 Hemoglobin 8.1 g/dL 6.9 g/dL Hematocrit 24.2 % 19.6 % Sodium Level 129 mmol/L 132 mmol/L Potassium Level 4.1 mmol/L 3.9 mmol/L Chloride Level 100 mmol/L 101 mmol/L Carbon Dioxide Level 23 mmol/L 25 mmol/L Anion Gap 6.0 mmol/L 6.0 mmol/L Blood Urea Nitrogen 17 mg/dl 15 mg/dl Creatinine 1.16 mg/dl 1.07 mg/dl Estimated GFR () 79.4 87.6 Estimated GFR (Non- 68.5 75.6 BUN/Creatinine Ratio 14.7 14.0 Random Glucose 71 mg/dl 87 mg/dl Calcium Level 7.2 mg/dl 7.3 mg/dl Magnesium Level 1.9 mg/dl 1.8 mg/dl White Blood Count 4.34 K/uL Red Blood Count 1.95 M/uL Mean Corpuscular Volume 100.5 fL Mean Corpuscular Hemoglobin 35.4 pg Mean Corpuscular Hemoglobin Concent 35.2 g/dl Platelet Count 131 K/uL Mean Platelet Volume 8.6 fL Neutrophils (%) (Auto) 68.9 % Lymphocytes (%) (Auto) 16.1 % Monocytes (%) (Auto) 9.7 % Eosinophils (%) (Auto) 0.5 % Basophils (%) (Auto) 0.0 % Neutrophils # (Auto) 2.99 K/uL Lymphocytes # (Auto) 0.70 K/uL Monocytes # (Auto) 0.42 K/uL Eosinophils # (Auto) 0.02 K/uL Basophils # (Auto) 0.00 K/uL RDW Standard Deviation 58.8 fL RDW Coefficient of Variation 16.1 % Immature Granulocyte % (Auto) 4.8 % Immature Granulocyte # (Auto) 0.21 K/uL Nucleated RBC Absolute Count (auto) 0.06 K/uL Nucleated Red Blood Cells % 1.3 % Basophilic Stippling 1+ Anisocytosis PRESENT Tear Drop Cells OCCASIONAL Prothrombin Time 13.1 SECONDS Prothromb Time International Ratio 1.3 Activated Partial Thromboplast Time 26.8 SECONDS Partial Thromboplastin Ratio 1.0 Est Creatinine Clear Calc Drug Dose 78.2 ml/min Total Bilirubin 0.6 mg/dl Direct Bilirubin 0.1 mg/dl Aspartate Amino Transf (AST/SGOT) 81 U/L Alanine Aminotransferase (ALT/SGPT) 23 U/L Alkaline Phosphatase 76 U/L Total Protein 7.8 gm/dl Albumin 1.7 gm/dl Stool Occult Blood NEGATIVE Test 09/28/17 08:10 09/28/17 08:26 Assessment and Plan Very ill 57yo male with: 1. shock - likely septic given his fever and high risk of infection if in fact he has multiple myeloma. Cannot rule out adrenal shock. No evidence of cardiogenic shock. Source for shock - recent back surgery vs pulmonary vs GI (sigmoid diverticulitis on CT) vs other. Blood/urine cx's pending. U/a unremarkable. Prostate exam showed BPH but no prostatitis. Flu negative. Cont broad-spectrum IV abx (zosyn, levaquin, vanco). Recheck lactate NOW. Recheck VBG NOW. Check cortisol level, sed rate, crp. He has received considerable volume resuscitation since yesterday and despite such his BPs are borderline. May need pressors. Spoke with Dr. Zeng, ICU, and we both feel he should be transferred to ICU. Place cruz now. He may need repeat imaging of the spine to exclude source for infection. Echo ordered by Dr. Kolb and is pending. 2. ?sigmoid diverticulitis? - he had mild inflammatory changes in the sigmoid prior to transfer to [place] for his back surgery. The CT yesterday shows it is worse. If not diverticulitis this could be ischemia. Repeating his lactate now. Hemoccult was done and is pending. No gross blood on GILMER. Gen surg consult. 3. metabolic encephalopathy - 2nd to #1. Check ammonia and VBG to be complete. CT head w/o acute findings. 4. anemia - Hb was 10.1 prior to transfer to [place] 10 days ago. The acute drop to the 6's likely represents phlebotomy and recent blood loss from surgery. Doubt GI bleeding but possible and awaiting hemoccult. Agree with transfusion 2 units now. Baseline anemia is likely from his cancer process (suspected multiple myeloma). 5. severe protein calorie malnutrition - albumin is <2. Will address once acute issues are resolved. 6. question of multiple myeloma - lytic lesions are seen diffusely on all imaging studies worrisome for multiple myeloma. Consider heme/onc consultation while here. Metastatic disease from some other source is also possible but less likely. 7. DVT proph - lovenox. 8. hyponatremia - due to volume depletion/dehydration. NS hydration. Serial BMPs. 9. recent acute otitis media - resolved. 10. FEN - make NPO due to #2. IVF with NS. Lytes are stable. 11. mild respiratory acidosis on VBG yesterday, imaging studies with COPD changes - given his altered MS will recheck VBG now. 12. code status - full I called his Ila and updated her on the transfer to ICU, current problems , etc. She is on her way in. Plan d/w Dr. Zeng, ICU attending. Total critical care time about 90 minutes. Continued [facility] stay due to: fever, abnormal vital signs, inadequate po fluid intake, inadequate oral pain control, voiding difficulties, ambulation difficulties, multiple IV medications needed
[2017-09-28] MEDS ORDERED: ASPIRIN 81 MG ECTAB PO SCH (09:00)
[2017-09-28] MEDS: VANCOMYCIN INJ 1,250 MG in SODIUM CHLORIDE 0.9% 250ML 250 ML IV SCH ×2 (10:11→20:23)
--- NOTE | 2017-09-28 10:22 | Oncology Consultation ---
Oncology/Heme Consultation Date of Consultation: Sep 28, 2017. 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 Anders is a 57 year old man with a complicated PMH, including CAD with an inferior SD leading to ICM (baseline EF 45%) and PAD with an aorto-bifem graft in 2012. He was admitted to [place] 09/20/17 with thoracic back pain that had been ongoing for a few weeks. Scans there revealed innumerable lytic bone lesions, including a mass at T6-T8 that was encroaching on the cord. He underwent laminectomy with resection of the mass and ten stabilization. 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 CTs of his CAP also revealed widespread, though not bulky, lymphadenopathy. Bone marrow biopsy 09/23 confirmed myeloma, with plasma cells comprising 50% of marrow cellularity. He was discharged 09/24/17. He presented last night with an enlarging inguinal lump, but also complaining of low-grade fevers, generalized weakness, and sweats. He was afebrile in the ER but became hypotensive requiring volume resuscitation, though not IV vasopressors. A repeat CT here shows possible evidence of acute diverticulitis, but otherwise no obvious infectious sources. His operative wound appears healthy and uninfected. He also denies any localizing signs of infection, such as dysuria, urinary frequency, purulent cough, or diarrhea. He denies any history of HIV exposure or other risk factors for HIV, such as incarceration, IVDU, or unprotected sexual encounters other than his . Past Medical/Surgical History Medical Problems: (1) Dehydration Status: Acute (2) Rib pain on right side Status: Acute Family History Cancer Social History Smoking Status: Unknown if Ever Smoked Smokeless Tobacco Use: No Alcohol Use: none Drug Use: none Marital Status: Housing Status: lives with family Occupation Status: employed Allergies Coded Allergies: Atorvastatin (Verified Adverse Reaction, Unknown, myalgias, 09/27/17) Simvastatin (Verified Adverse Reaction, Unknown, myalgias, 09/27/17) Home Medications Scheduled Aspirin (Aspirin Ec), 81 MG PO DAILY Garlic (Garlic), 500 MG PO QAM Metoprolol Succinate (Toprol Xl), 25 MG PO HS Marfa-3 Fatty Acids (Fish Oil), 1 CAP PO QAM Pravastatin Sodium (Pravachol), 20 MG PO HS Sennosides-Docusate Sodium (Docusate Sodium/Senna), 1 TAB PO BID Scheduled PRN Cyclobenzaprine Hcl (Flexeril), 5 MG PO BID PRN for Muscle Spasms Oxycodone Hcl (Oxycodone Hcl), 1 TAB PO Q4H PRN for Moderate Pain Current Inpatient Medications Current Inpatient Medications Medications (Trade) Dose Ordered Sig/Malik Route Start Time Stop Time Status Last Admin Dose Admin Morphine Sulfate (MoRPHine SULFATE INJ) 4 mg Q2H PRN IV 09/27/17 19:30 10/11/17 19:29 Enoxaparin Sodium (Lovenox Inj) 40 mg HS SC 09/27/17 21:30 10/27/17 21:29 09/27/17 22:13 40 MG Potassium Chloride/Sodium Chloride 1,000 ml @ 150 mls/hr Q6H40M IV 09/27/17 21:30 10/27/17 21:29 09/28/17 04:02 150 MLS/HR Ondansetron HCl (Zofran Inj) 4 mg Q6H PRN IV 09/27/17 19:45 10/27/17 19:44 Pantoprazole Sodium 40 mg/ Syringe 10 ml @ 5 mls/min DAILY@11 IV 09/28/17 11:00 10/28/17 10:59 Acetaminophen 100 ml @ 400 mls/hr Q8H PRN IV 09/27/17 19:45 10/27/17 19:44 09/28/17 02:22 400 MLS/HR Piperacillin Sod/ Tazobactam Sod 3.375 gm/Dextrose 115 ml @ 28.75 mls/ hr Q8H IV 09/27/17 22:00 09/29/17 21:59 09/28/17 06:07 28.75 MLS/HR Vancomycin HCl 1250 mg/Sodium Chloride 275 ml @ 125 mls/hr Q12H IV 09/27/17 22:00 09/29/17 21:59 09/27/17 22:01 125 MLS/HR Miscellaneous Information (Consult) 1 ea UD PRN N/A 09/27/17 19:45 10/27/17 19:44 Miscellaneous Information (Consult) 1 ea UD PRN N/A 09/27/17 19:45 10/27/17 19:44 Ioversol (Optiray 320) 100 ml UD PRN IV 09/27/17 20:15 10/01/17 20:14 Albumin Human (Albumin 25%) 12.5 gm Q4 IV 09/28/17 12:00 09/30/17 08:01 Review of Systems Constitutional: + fever, + chills, + sweats, + fatigue ENT: No unusual epistaxis Respiratory: No cough, No shortness of breath Cardiovascular: No chest pain Abdomen: No pain, No nausea, No diarrhea Musculoskeletal: + joint pain (back pain, at site of surgery) Genitourinary - Male: No hematuria, No dysuria Neurologic: No paralysis, No weakness Hematologic / Lymphatic: + swollen lymph nodes, + night sweats, No abnormal bleeding/bruising Physical Exam Date Time Temp Pulse Resp B/P (MAP) Pulse Ox O2 Delivery O2 Flow Rate FiO2 09/28/17 09:24 37.6 120 27 100/59 95 2.0 09/28/17 09:19 37.6 125 20 97/65 96 2.0 09/28/17 08:33 36.9 123 20 92/63 97 2.0 09/28/17 08:13 36.9 113 20 95/57 95 2.0 09/28/17 08:00 95 Nasal Cannula 2.0 09/28/17 08:00 36.8 110 20 88/55 92 09/28/17 07:30 36.8 112 20 87/63 93 2.0 09/28/17 07:25 20 09/28/17 07:10 36.5 105 20 88/65 92 2.0 09/28/17 06:50 37.4 108 89/66 09/28/17 06:30 109 93/62 (72) 09/28/17 06:00 105 91/65 (74) 09/28/17 05:30 118 101/66 (78) 09/28/17 05:00 111 89/62 (71) 09/28/17 04:19 37.6 114 20 93/62 (72) 92 Nasal Cannula 2.0 2/25/18 04:00 92 Nasal Cannula 2.0 09/28/17 03:00 120 83/57 (66) 09/28/17 02:30 121 85/58 (67) 09/28/17 02:20 39.3 09/28/17 02:00 127 105/74 (84) 09/28/17 01:30 120 102/64 (77) 09/28/17 01:00 111 90/61 (71) 09/28/17 00:30 100 92/64 (73) 09/28/17 00:00 93 Nasal Cannula 2.0 09/28/17 00:00 110 104/69 (81) 09/27/17 23:30 100 87/61 (70) 09/27/17 23:20 36.9 102 20 84/61 (69) 98 Nasal Cannula 2.0 09/27/17 23:10 107 102/63 (76) 09/27/17 21:10 37.4 120 18 96/67 93 Nasal Cannula 2.0 09/27/17 20:30 122 24 102/53 96 Nasal Cannula 2.0 09/27/17 20:00 123 24 102/53 96 Nasal Cannula 2.0 09/27/17 19:09 127 18 105/68 96 Room Air 09/27/17 19:06 127 09/27/17 18:51 129 19 95 Room Air 09/27/17 18:21 128 19 96 09/27/17 18:05 91/58 09/27/17 18:05 128 20 91/58 95 Room Air 09/27/17 17:51 127 25 94 09/27/17 17:48 126 21 76/48 95 Room Air 09/27/17 17:47 76/48 09/27/17 16:16 118 21 90 09/27/17 16:11 110 24 90 09/27/17 16:06 111 19 92 09/27/17 15:07 109 09/27/17 15:06 112 18 09/27/17 15:05 106 18 98/56 98 09/27/17 15:04 98/56 09/27/17 13:42 37.1 129 16 121/73 93 Room Air General Appearance: + moderate distress (acutely ill-appearing ) ENT: pharynx normal Respiratory/Chest: lungs clear (anteriorly) Cardiovascular: + tachycardia Abdomen/GI: non tender, soft Extremities/Musculoskelatal: no pedal edema Neurologic/Psych: alert, oriented x 3 Skin: no rash, + diaphoresis Laboratory Results Last 24 Hours Test 09/27/17 13:40 09/27/17 14:30 09/27/17 15:44 09/27/17 17:10 Sodium Level 130 mmol/L Potassium Level 3.7 mmol/L Chloride Level 97 mmol/L Carbon Dioxide Level 28 mmol/L Anion Gap 5.0 mmol/L Blood Urea Nitrogen 20 mg/dl Creatinine 1.13 mg/dl Estimated GFR () 82.0 Estimated GFR (Non- 70.8 BUN/Creatinine Ratio 17.5 Random Glucose 77 mg/dl Lactic Acid Level 1.3 mmol/L Calcium Level 7.7 mg/dl Total Bilirubin 0.4 mg/dl Direct Bilirubin 0.1 mg/dl Aspartate Amino Transf (AST/SGOT) 21 U/L Alanine Aminotransferase (ALT/SGPT) 22 U/L Alkaline Phosphatase 85 U/L Total Creatine Kinase 32 U/L Troponin I 0.044 ng/ml Total Protein 9.5 gm/dl Albumin 2.1 gm/dl Lipase 167 U/L White Blood Count 8.74 K/uL Red Blood Count 2.41 M/uL Hemoglobin 8.3 g/dL Hematocrit 24.3 % Mean Corpuscular Volume 100.8 fL Mean Corpuscular Hemoglobin 34.4 pg Mean Corpuscular Hemoglobin Concent 34.2 g/dl Platelet Count 186 K/uL Mean Platelet Volume 8.5 fL Neutrophils (%) (Auto) 61.5 % Lymphocytes (%) (Auto) 24.8 % Monocytes (%) (Auto) 8.9 % Eosinophils (%) (Auto) 0.7 % Basophils (%) (Auto) 0.1 % Neutrophils # (Auto) 5.37 K/uL Lymphocytes # (Auto) 2.17 K/uL Monocytes # (Auto) 0.78 K/uL Eosinophils # (Auto) 0.06 K/uL Basophils # (Auto) 0.01 K/uL RDW Standard Deviation 58.3 fL RDW Coefficient of Variation 15.9 % Immature Granulocyte % (Auto) 4.0 % Immature Granulocyte # (Auto) 0.35 K/uL Nucleated RBC Absolute Count (auto) 0.12 K/uL Nucleated Red Blood Cells % 1.4 % Polychromasia 1+ Basophilic Stippling 1+ Prothrombin Time 11.5 SECONDS Prothromb Time International Ratio 1.1 Activated Partial Thromboplast Time 21.0 SECONDS Partial Thromboplastin Ratio 0.8 Influenza Type A Antigen Neg for Influ A Influenza Type B Antigen Neg for Influ B Venous Blood pH 7.35 Venous Blood Partial Pressure CO2 51 mmHg Venous Blood Partial Pressure O2 24 mmHg Venous Blood HCO3 27 mmol/L Venous Blood Oxygen Saturation < 60.0 % Venous Blood Base Excess 1.2 mEq/L Urine Color YELLOW Urine Appearance CLEAR Urine pH 5.5 Urine Specific [place] 1.019 Urine Protein NEG Urine Glucose (UA) NEG Urine Ketones NEG Urine Occult Blood NEG Urine Nitrite NEG Urine Bilirubin NEG Urine Urobilinogen NEG Urine Leukocyte Esterase NEG Urine WBC (Auto) 1-5 /hpf Urine RBC (Auto) 0-4 /hpf Urine Hyaline Casts (Auto) 0 /lpf Urine Epithelial Cells (Auto) 0-5 /lpf Urine Bacteria (Auto) NEG Test 09/27/17 23:27 09/28/17 04:37 09/28/17 08:05 09/28/17 08:41 Hemoglobin 8.1 g/dL 6.9 g/dL Hematocrit 24.2 % 19.6 % Sodium Level 129 mmol/L 132 mmol/L Potassium Level 4.1 mmol/L 3.9 mmol/L Chloride Level 100 mmol/L 101 mmol/L Carbon Dioxide Level 23 mmol/L 25 mmol/L Anion Gap 6.0 mmol/L 6.0 mmol/L Blood Urea Nitrogen 17 mg/dl 15 mg/dl Creatinine 1.16 mg/dl 1.07 mg/dl Estimated GFR () 79.4 87.6 Estimated GFR (Non- 68.5 75.6 BUN/Creatinine Ratio 14.7 14.0 Random Glucose 71 mg/dl 87 mg/dl Calcium Level 7.2 mg/dl 7.3 mg/dl Magnesium Level 1.9 mg/dl 1.8 mg/dl White Blood Count 4.34 K/uL Red Blood Count 1.95 M/uL Mean Corpuscular Volume 100.5 fL Mean Corpuscular Hemoglobin 35.4 pg Mean Corpuscular Hemoglobin Concent 35.2 g/dl Platelet Count 131 K/uL Mean Platelet Volume 8.6 fL Neutrophils (%) (Auto) 68.9 % Lymphocytes (%) (Auto) 16.1 % Monocytes (%) (Auto) 9.7 % Eosinophils (%) (Auto) 0.5 % Basophils (%) (Auto) 0.0 % Neutrophils # (Auto) 2.99 K/uL Lymphocytes # (Auto) 0.70 K/uL Monocytes # (Auto) 0.42 K/uL Eosinophils # (Auto) 0.02 K/uL Basophils # (Auto) 0.00 K/uL RDW Standard Deviation 58.8 fL RDW Coefficient of Variation 16.1 % Immature Granulocyte % (Auto) 4.8 % Immature Granulocyte # (Auto) 0.21 K/uL Nucleated RBC Absolute Count (auto) 0.06 K/uL Nucleated Red Blood Cells % 1.3 % Basophilic Stippling 1+ Anisocytosis PRESENT Tear Drop Cells OCCASIONAL Prothrombin Time 13.1 SECONDS Prothromb Time International Ratio 1.3 Activated Partial Thromboplast Time 26.8 SECONDS Partial Thromboplastin Ratio 1.0 Est Creatinine Clear Calc Drug Dose 78.2 ml/min Total Bilirubin 0.6 mg/dl Direct Bilirubin 0.1 mg/dl Aspartate Amino Transf (AST/SGOT) 81 U/L Alanine Aminotransferase (ALT/SGPT) 23 U/L Alkaline Phosphatase 76 U/L Total Protein 7.8 gm/dl Albumin 1.7 gm/dl Stool Occult Blood NEGATIVE Erythrocyte Sedimentation Rate 15 mm/hr Venous Blood pH 7.48 Venous Blood Partial Pressure CO2 31 mmHg Venous Blood Partial Pressure O2 68 mmHg Venous Blood HCO3 23 mmol/L Venous Blood Oxygen Saturation 92.2 % Venous Blood Base Excess -0.5 mEq/L Lactic Acid Level 0.7 mmol/L Ammonia 48.9 umol/L C-Reactive Protein 12.10 mg/dl Assessment & Plan Mr. Anders appears acutely ill. He is not febrile and has a normal WBC count, making an infectious etiology somewhat less likely. However, I agree with a thorough infectious workup. As noted below, the cancer he has is often seen in the context of HIV and EBV infections. He denies any risk factors for exposure to these illnesses, but screening might be prudent regardless. While his incision looks healthy, if another source is not identified, consideration of imaging of his T-spine might be appropriate. The other possibility is that his constitutional symptoms are related to his cancer and that he became hypotensive from volume depletion due to insensate losses. Plasmablastic myeloma/lymphoma is a rare entity that is extremely aggressive, often with a survival measured in months. It is most commonly seen in immunocompromised patients, such as HIV patients, though as many as 20-30% of cases are seen in immunocompetent hosts. The disease exists on a spectrum between a lymphomatous and myelomatous presentation and it is not clear that there is a meaningful distinction between the two. This would explain his unusual presentation, with elements of both myeloma (lytic lesions, an M- protein, anemia) and lymphoma (widespread augustin disease, B-symptoms). There is no widely accepted standard therapy for this disease, though a brief literature search suggests it is often treated analogously to high-grade lymphomas, with aggressive infusional regimens like EPOCH or HyperCVAD. I would continue his current workup and with broad-spectrum antibiotics until infection is ruled out. Should he continue to be acutely ill without an infectious source, I would consider transferring him back to [place] to discuss acute inpatient therapy. My service will continue to follow him and will assist in this transition if need be.
[2017-09-28] MEDS ORDERED: PANTOprazole INJ 40 MG in SYRINGE 0 ML IV SCH (11:00)
--- NOTE | 2017-09-28 11:40 | ECHOCARDIOGRAM REPORT ---
*NOTICE TO RECEIVING CONSTITUTION PARTY AGENCY This information is strictly Confidential and protected under [place] law. [place] law prohibits you from making any further disclosure of this information unless further disclosure is expressly permitted by the written consent of the person to whom it pertains or is authorized by law. A general authorization for the release of medical or other information is not sufficient for this purpose. Hospital accepts no responsibility if the information is made available to any other person, INCLUDING THE PATIENT. Interpretation Summary * Name: KAITLIN BUI Study Date: 09/28/2017 06:39 AM BP: 93/62 mmHg * Patient Location: C.2E\S\E201\S\1 HR: 108 * : 1960 (M/d/yyyy) Gender: Male Height: 70 in * Age: 57 yrs Ethnicity: CA Weight: 184 lb * Ordering Physician: Paddy Kolb * Referring Physician: Self, Referred * Performed By: Alfredo Ariza RDCS * * Reason For Study: Tachycradia, sepsis, multiple myeloma * BSA: 2.0 m2 * -- Conclusions -- * 1. Mildly dilated left ventricle with mildly reduced systolic function. Estimated EF 45%. Akinesis of the inferolateral wall and base to mid inferior wall. Moderate left ventricular hypertrophy of the anteroseptum. No significant diastolic dysfunction. * 2. Mild aortic stenosis. * 3. There is mild mitral regurgitation. * 4. Technically difficult study, enhanced with IV Definity. * 5. No prior study available for comparison. Procedure Details * A complete two-dimensional transthoracic echocardiogram was performed (2D, M-mode, Doppler and color flow Doppler). * There were technical limitations due to patient'spoor positioning * The study was technically difficult, but visualization was adequate with the administration of Definity ultrasound contrast. * A contrast injection of Definity was performed to improve assessment of LV function. * Contrast was injected into an intravenous site in the right arm. * One vial of Definity ultrasound contrast was diluted in normal saline to a total volume of 10 ml. A total of '5' ml of solution was administered during imaging. * Lot # [id number] of Definity utilized for procedure. * Expiration date . * The attending nurse who injected the contrast agent was DAPHNIE Diamond. Left Ventricle * Mildly dilated left ventricle with mildly reduced systolic function. Estimated EF 45%. Akinesis of the inferolateral wall and base to mid inferior wall. Moderate left ventricular hypertrophy of the anteroseptum. No significant diastolic dysfunction. Right Ventricle * The right ventricle is grossly normal size. * The right ventricular systolic function is normal as assessed by tricuspid annular plane systolic excursion (TAPSE) (normal >1.5 cm). Atria * The left atrial size is normal. * Right atrial size is normal. * There is no evidence of atrial septal defect, but resolution does not allow assessment for a patent foramen ovale. Mitral Valve * The mitral valve is grossly normal. * There is no mitral valve stenosis. * There is mild mitral regurgitation. Tricuspid Valve * The tricuspid valve is not well visualized, but is grossly normal. * There is no tricuspid stenosis. * Significant tricuspid regurgitation is absent. Aortic Valve * Mild aortic stenosis. * There is no significant aortic regurgitation. Pulmonic Valve * The pulmonary valve is inadequately visualized, but the Doppler data is adequate for interpretation. * There is no pulmonic valvular stenosis. * Trace pulmonic valvular regurgitation. Great Vessels * The aortic root is normal size. * Ascending aorta of normal dimension * Aortic arch of normal dimension. Pericardium/Pleural * There is no pericardial effusion. Great Vessels * Normal inferior vena cava size and collapsability with sniff indicates a normal right atrial pressure of 3 mmHg MMode 2D Measurements and Calculations IVSd 1.4 cm IVSs 2.1 cm LVIDd 5.7 cm LVPWd 0.80 cm LVPWs 1.1 cm IVS/LVPW 1.7 EDV(Teich) 157.7 ml EDV(cubed) 181.7 ml % IVS thick 55.2 % % LVPW thick 38.9 % LV mass(C)d 246.5 grams LV mass(C)dI 122.4 grams/m\S\2 EPSS 0.91 cm Ao root diam 3.3 cm Ao root area 8.6 cm\S\2 ACS 1.4 cm LA dimension 3.8 cm asc Aorta Diam 3.0 cm LA/Ao 1.1 LVOT diam 2.3 cm LVOT area 4.3 cm\S\2 LVAd ap4 36.4 cm\S\2 LVLd ap4 9.2 cm EDV(MOD-sp4) 123.0 ml EDV(sp4-el) 122.6 ml LVAs ap4 24.8 cm\S\2 LVLs ap4 8.0 cm ESV(MOD-sp4) 70.2 ml ESV(sp4-el) 65.4 ml EF(MOD-sp4) 42.9 % EF(sp4-el) 46.6 % LVAd ap2 34.8 cm\S\2 LVLd ap2 7.8 cm EDV(MOD-sp2) 125.9 ml EDV(sp2-el) 132.0 ml LVAs ap2 25.0 cm\S\2 LVLs ap2 7.2 cm ESV(MOD-sp2) 71.9 ml ESV(sp2-el) 73.8 ml EF(MOD-sp2) 42.9 % EF(sp2-el) 44.1 % LVLd %diff -18.14 % EDV(MOD-bp) 133.4 ml LVLs %diff -11.56 % ESV(MOD-bp) 73.6 ml EF(MOD-bp) 44.8 % SV(MOD-sp4) 52.7 ml SI(MOD-sp4) 26.2 ml/m\S\2 SV(MOD-sp2) 53.9 ml SI(MOD-sp2) 26.8 ml/m\S\2 SV(MOD-bp) 59.8 ml SI(MOD-bp) 29.7 ml/m\S\2 SV(sp4-el) 57.2 ml SI(sp4-el) 28.4 ml/m\S\2 SV(sp2-el) 58.2 ml SI(sp2-el) 28.9 ml/m\S\2 Doppler Measurements and Calculations MV E max bianca 114.6 cm/sec MV A max bianca 97.0 cm/sec MV E/A 1.2 MV dec time 0.16 sec Ao V2 max 265.8 cm/sec Ao max PG 28.4 mmHg Ao max PG (full) 23.3 mmHg Ao V2 mean 187.5 cm/sec Ao mean PG 15.8 mmHg Ao mean PG (full) 12.8 mmHg Ao V2 VTI 46.7 cm SARAH(I,A) 1.8 cm\S\2 SARAH(I,D) 1.8 cm\S\2 SARAH(V,A) 1.8 cm\S\2 SARAH(V,D) 1.8 cm\S\2 LV V1 max PG 5.1 mmHg LV V1 mean PG 3.0 mmHg LV V1 max 112.8 cm/sec LV V1 mean 79.7 cm/sec LV V1 VTI 20.2 cm SV(Ao) 402.1 ml SI(Ao) 199.6 ml/m\S\2 SV(LVOT) 86.0 ml SI(LVOT) 42.7 ml/m\S\2 PA V2 max 102.7 cm/sec PA max PG 4.2 mmHg PA acc slope 578.4 cm/sec\S\2 PA acc time 0.13 sec RAP systole 3.0 mmHg PA pr(Accel) 18.6 mmHg
[2017-09-28] MEDS: ALBUMIN HUMAN 25% 12.5 GM/50 ML VIAL IV SCH ×4 (11:46→23:30)
--- NOTE | 2017-09-28 12:16 | Critical Care Consultation ---
Critical Care Consultation Date of Consultation: Sep 28, 2017. Attending Physician: Michel Beckman MD Reason for Consultation: Septic shock History of Present Illness Dear Dr. Beckman: Thank you for your kind referral of Mr. Anders to critical care service. This is 57-year-old gentleman with history of smoking, COPD untreated, history of peripheral arterial disease with aortic bifemoral graft. Recently diagnosed with compression fracture of his thoracic spine, status post spinal surgery with hardware placed a week ago. At [facility]. The patient presented to the hospital with confusion and abdominal pain. The patient did not have any back pain. Patient was admitted initially and underwent a workup including abdominal CT which showed left-sided diverticulitis. The patient was started on vancomycin and Zosyn in addition to Levaquin and started on IV fluid. Today the patient found to have increased confusion and delirium, his blood pressure was on the low side, aggressive fluid were started and transferred to the ICU for further management. When I interviewed the patient, he appeared to be confused, does not follow questions appropriately, however he denies any back pain but he complained only of abdominal pain that has been persistent mainly on the left side and pelvic area. Denies any change in his bowel movements no nausea or vomiting reported. No dysuria or increased frequency of urination. The patient did not have leukocytosis but he had 21% bandemia. He did have low-grade fever and chills. Past Medical/Surgical History COPD not on treatment, found on a CAT scan of the chest done yesterday, plasmablastic multiple myeloma, untreated yet just diagnosed a week ago, compression fracture status post spinal surgery. Family History Cancer Social History Smoking Status: Unknown if Ever Smoked Smokeless Tobacco Use: No Alcohol Use: none Drug Use: none Marital Status: Housing Status: lives with family Occupation Status: employed Allergies Coded Allergies: Atorvastatin (Verified Adverse Reaction, Unknown, myalgias, 09/27/17) Simvastatin (Verified Adverse Reaction, Unknown, myalgias, 09/27/17) Home Medications Scheduled Aspirin (Aspirin Ec), 81 MG PO DAILY Garlic (Garlic), 500 MG PO QAM Metoprolol Succinate (Toprol Xl), 25 MG PO HS [place]-3 Fatty Acids (Fish Oil), 1 CAP PO QAM Pravastatin Sodium (Pravachol), 20 MG PO HS Sennosides-Docusate Sodium (Docusate Sodium/Senna), 1 TAB PO BID Scheduled PRN Cyclobenzaprine Hcl (Flexeril), 5 MG PO BID PRN for Muscle Spasms Oxycodone Hcl (Oxycodone Hcl), 1 TAB PO Q4H PRN for Moderate Pain Current Inpatient Medications Current Inpatient Medications Medications (Trade) Dose Ordered Sig/Malik Route Start Time Stop Time Status Last Admin Dose Admin Morphine Sulfate (MoRPHine SULFATE INJ) 4 mg Q2H PRN IV 09/27/17 19:30 10/11/17 19:29 Enoxaparin Sodium (Lovenox Inj) 40 mg HS SC 09/27/17 21:30 10/27/17 21:29 09/27/17 22:13 40 MG Potassium Chloride/Sodium Chloride 1,000 ml @ 150 mls/hr Q6H40M IV 09/27/17 21:30 10/27/17 21:29 09/28/17 10:12 150 MLS/HR Ondansetron HCl (Zofran Inj) 4 mg Q6H PRN IV 09/27/17 19:45 10/27/17 19:44 Pantoprazole Sodium 40 mg/ Syringe 10 ml @ 5 mls/min DAILY@11 IV 09/28/17 11:00 10/28/17 10:59 09/28/17 10:12 5 MLS/MIN Acetaminophen 100 ml @ 400 mls/hr Q8H PRN IV 09/27/17 19:45 10/27/17 19:44 09/28/17 02:22 400 MLS/HR Piperacillin Sod/ Tazobactam Sod 3.375 gm/Dextrose 115 ml @ 28.75 mls/ hr Q8H IV 09/27/17 22:00 09/29/17 21:59 09/28/17 06:07 28.75 MLS/HR Vancomycin HCl 1250 mg/Sodium Chloride 275 ml @ 125 mls/hr Q12H IV 09/27/17 22:00 09/29/17 21:59 09/28/17 10:11 125 MLS/HR Miscellaneous Information (Consult) 1 ea UD PRN N/A 09/27/17 19:45 10/27/17 19:44 Miscellaneous Information (Consult) 1 ea UD PRN N/A 09/27/17 19:45 10/27/17 19:44 Ioversol (Optiray 320) 100 ml UD PRN IV 09/27/17 20:15 10/01/17 20:14 Albumin Human (Albumin 25%) 12.5 gm Q4 IV 09/28/17 12:00 09/30/17 08:01 09/28/17 11:46 12.5 GM Review of Systems Limited review of systems due to the patient confusion. Constitutional: + chills, No fever, No sweats, No weight loss, No weakness, No fatigue, No problem reported Eyes: No worsening of vision, No eye pain, No redness, No discharge, No diplopia, No problem reported Respiratory: No cough, No sputum, No wheezing, No shortness of breath, No dyspnea on exertion, No dyspnea at rest, No hemoptysis, No problem reported Cardiovascular: No chest pain, No orthopnea, No PND, No edema, No claudication , No palpitations, No problem reported Abdomen: + pain (pelvic area.) Neurologic: No memory loss, No paralysis, No weakness, No numbness/tingling, No vertigo, No balance problems Psychiatric: + problem reported (confused.) Hematologic / Lymphatic: + problem reported (lymphadenopathy in the groin area and recent diagnosis of multiple myeloma.) Physical Exam Date Time Temp Pulse Resp B/P (MAP) Pulse Ox O2 Delivery O2 Flow Rate FiO2 09/28/17 11:42 38.8 109 18 99/62 99 2.0 09/28/17 10:50 36.8 116 24 107/77 96 2.0 09/28/17 10:20 37.1 117 21 106/64 95 2.0 09/28/17 10:05 38.3 124 18 99/62 96 2.0 09/28/17 09:50 38.3 122 18 100/67 96 2.0 09/28/17 09:24 37.6 120 27 100/59 95 2.0 09/28/17 09:19 37.6 125 20 97/65 96 2.0 09/28/17 08:33 36.9 123 20 92/63 97 2.0 09/28/17 08:13 36.9 113 20 95/57 95 2.0 09/28/17 08:00 95 Nasal Cannula 2.0 09/28/17 08:00 36.8 110 20 88/55 92 09/28/17 07:30 36.8 112 20 87/63 93 2.0 09/28/17 07:25 20 09/28/17 07:10 36.5 105 20 88/65 92 2.0 09/28/17 06:50 37.4 108 89/66 09/28/17 06:30 109 93/62 (72) 09/28/17 06:00 105 91/65 (74) 09/28/17 05:30 118 101/66 (78) 09/28/17 05:00 111 89/62 (71) 09/28/17 04:19 37.6 114 20 93/62 (72) 92 Nasal Cannula 2.0 09/28/17 04:00 92 Nasal Cannula 2.0 09/28/17 03:00 120 83/57 (66) 09/28/17 02:30 121 85/58 (67) 09/28/17 02:20 39.3 09/28/17 02:00 127 105/74 (84) 09/28/17 01:30 120 102/64 (77) 09/28/17 01:00 111 90/61 (71) 09/28/17 00:30 100 92/64 (73) 09/28/17 00:00 93 Nasal Cannula 2.0 09/28/17 00:00 110 104/69 (81) 09/27/17 23:30 100 87/61 (70) 09/27/17 23:20 36.9 102 20 84/61 (69) 98 Nasal Cannula 2.0 09/27/17 23:10 107 102/63 (76) 09/27/17 21:10 37.4 120 18 96/67 93 Nasal Cannula 2.0 09/27/17 20:30 122 24 102/53 96 Nasal Cannula 2.0 09/27/17 20:00 123 24 102/53 96 Nasal Cannula 2.0 09/27/17 19:09 127 18 105/68 96 Room Air 09/27/17 19:06 127 09/27/17 18:51 129 19 95 Room Air 09/27/17 18:21 128 19 96 09/27/17 18:05 91/58 09/27/17 18:05 128 20 91/58 95 Room Air 09/27/17 17:51 127 25 94 2/24/18 17:48 126 21 76/48 95 Room Air 09/27/17 17:47 76/48 09/27/17 16:16 118 21 90 09/27/17 16:11 110 24 90 09/27/17 16:06 111 19 92 09/27/17 15:07 109 09/27/17 15:06 112 18 09/27/17 15:05 106 18 98/56 98 09/27/17 15:04 98/56 09/27/17 13:42 37.1 129 16 121/73 93 Room Air General Appearance: uncomfortable Head: normocephalic Eyes: PERRLA, EOMI ENT: normal throat exam, normal sinus exam Neck: no tenderness, trachea midline Respiratory: breath sounds normal, clear to auscultation Cardiovasular: regular rate/rhythm, normal S1S2, no M/G/R, no murmur Abdomen: other (tenderness in the left lower and right lower quadrant as well as pelvic area.) Back: other (recent spinal surgery.) Lower Extremities: no edema Neuro: alert, normal motor exam, normal sensation Reflexes: patellar (R) (2+), patellar (L) (2+) Psychiatric: normal affect (but confused) Laboratory Results Last 24 Hours Test 09/27/17 13:40 09/27/17 14:30 09/27/17 15:44 09/27/17 17:10 Sodium Level 130 mmol/L Potassium Level 3.7 mmol/L Chloride Level 97 mmol/L Carbon Dioxide Level 28 mmol/L Anion Gap 5.0 mmol/L Blood Urea Nitrogen 20 mg/dl Creatinine 1.13 mg/dl Estimated GFR () 82.0 Estimated GFR (Non- 70.8 BUN/Creatinine Ratio 17.5 Random Glucose 77 mg/dl Lactic Acid Level 1.3 mmol/L Calcium Level 7.7 mg/dl Total Bilirubin 0.4 mg/dl Direct Bilirubin 0.1 mg/dl Aspartate Amino Transf (AST/SGOT) 21 U/L Alanine Aminotransferase (ALT/SGPT) 22 U/L Alkaline Phosphatase 85 U/L Total Creatine Kinase 32 U/L Troponin I 0.044 ng/ml Total Protein 9.5 gm/dl Albumin 2.1 gm/dl Lipase 167 U/L White Blood Count 8.74 K/uL Red Blood Count 2.41 M/uL Hemoglobin 8.3 g/dL Hematocrit 24.3 % Mean Corpuscular Volume 100.8 fL Mean Corpuscular Hemoglobin 34.4 pg Mean Corpuscular Hemoglobin Concent 34.2 g/dl Platelet Count 186 K/uL Mean Platelet Volume 8.5 fL Neutrophils (%) (Auto) 61.5 % Lymphocytes (%) (Auto) 24.8 % Monocytes (%) (Auto) 8.9 % Eosinophils (%) (Auto) 0.7 % Basophils (%) (Auto) 0.1 % Neutrophils # (Auto) 5.37 K/uL Lymphocytes # (Auto) 2.17 K/uL Monocytes # (Auto) 0.78 K/uL Eosinophils # (Auto) 0.06 K/uL Basophils # (Auto) 0.01 K/uL RDW Standard Deviation 58.3 fL RDW Coefficient of Variation 15.9 % Immature Granulocyte % (Auto) 4.0 % Immature Granulocyte # (Auto) 0.35 K/uL Nucleated RBC Absolute Count (auto) 0.12 K/uL Nucleated Red Blood Cells % 1.4 % Polychromasia 1+ Basophilic Stippling 1+ Prothrombin Time 11.5 SECONDS Prothromb Time International Ratio 1.1 Activated Partial Thromboplast Time 21.0 SECONDS Partial Thromboplastin Ratio 0.8 Influenza Type A Antigen Neg for Influ A Influenza Type B Antigen Neg for Influ B Venous Blood pH 7.35 Venous Blood Partial Pressure CO2 51 mmHg Venous Blood Partial Pressure O2 24 mmHg Venous Blood HCO3 27 mmol/L Venous Blood Oxygen Saturation < 60.0 % Venous Blood Base Excess 1.2 mEq/L Urine Color YELLOW Urine Appearance CLEAR Urine pH 5.5 Urine Specific [place] 1.019 Urine Protein NEG Urine Glucose (UA) NEG Urine Ketones NEG Urine Occult Blood NEG Urine Nitrite NEG Urine Bilirubin NEG Urine Urobilinogen NEG Urine Leukocyte Esterase NEG Urine WBC (Auto) 1-5 /hpf Urine RBC (Auto) 0-4 /hpf Urine Hyaline Casts (Auto) 0 /lpf Urine Epithelial Cells (Auto) 0-5 /lpf Urine Bacteria (Auto) NEG Test 09/27/17 23:27 09/28/17 04:37 09/28/17 08:05 09/28/17 08:41 Hemoglobin 8.1 g/dL 6.9 g/dL Hematocrit 24.2 % 19.6 % Sodium Level 129 mmol/L 132 mmol/L Potassium Level 4.1 mmol/L 3.9 mmol/L Chloride Level 100 mmol/L 101 mmol/L Carbon Dioxide Level 23 mmol/L 25 mmol/L Anion Gap 6.0 mmol/L 6.0 mmol/L Blood Urea Nitrogen 17 mg/dl 15 mg/dl Creatinine 1.16 mg/dl 1.07 mg/dl Estimated GFR () 79.4 87.6 Estimated GFR (Non- 68.5 75.6 BUN/Creatinine Ratio 14.7 14.0 Random Glucose 71 mg/dl 87 mg/dl Calcium Level 7.2 mg/dl 7.3 mg/dl Magnesium Level 1.9 mg/dl 1.8 mg/dl White Blood Count 4.34 K/uL Red Blood Count 1.95 M/uL Mean Corpuscular Volume 100.5 fL Mean Corpuscular Hemoglobin 35.4 pg Mean Corpuscular Hemoglobin Concent 35.2 g/dl Platelet Count 131 K/uL Mean Platelet Volume 8.6 fL Neutrophils (%) (Auto) 68.9 % Lymphocytes (%) (Auto) 16.1 % Monocytes (%) (Auto) 9.7 % Eosinophils (%) (Auto) 0.5 % Basophils (%) (Auto) 0.0 % Neutrophils # (Auto) 2.99 K/uL Lymphocytes # (Auto) 0.70 K/uL Monocytes # (Auto) 0.42 K/uL Eosinophils # (Auto) 0.02 K/uL Basophils # (Auto) 0.00 K/uL RDW Standard Deviation 58.8 fL RDW Coefficient of Variation 16.1 % Immature Granulocyte % (Auto) 4.8 % Immature Granulocyte # (Auto) 0.21 K/uL Nucleated RBC Absolute Count (auto) 0.06 K/uL Nucleated Red Blood Cells % 1.3 % Basophilic Stippling 1+ Anisocytosis PRESENT Tear Drop Cells OCCASIONAL Prothrombin Time 13.1 SECONDS Prothromb Time International Ratio 1.3 Activated Partial Thromboplast Time 26.8 SECONDS Partial Thromboplastin Ratio 1.0 Est Creatinine Clear Calc Drug Dose 78.2 ml/min Total Bilirubin 0.6 mg/dl Direct Bilirubin 0.1 mg/dl Aspartate Amino Transf (AST/SGOT) 81 U/L Alanine Aminotransferase (ALT/SGPT) 23 U/L Alkaline Phosphatase 76 U/L Total Protein 7.8 gm/dl Albumin 1.7 gm/dl Stool Occult Blood NEGATIVE Erythrocyte Sedimentation Rate 15 mm/hr Venous Blood pH 7.48 Venous Blood Partial Pressure CO2 31 mmHg Venous Blood Partial Pressure O2 68 mmHg Venous Blood HCO3 23 mmol/L Venous Blood Oxygen Saturation 92.2 % Venous Blood Base Excess -0.5 mEq/L Lactic Acid Level 0.7 mmol/L Ammonia 48.9 umol/L C-Reactive Protein 12.10 mg/dl Procalcitonin 0.23 ng/ml Random Cortisol 15.51 mcg/dl Diagnostic Results CT of the chest showed emphysematous changes, based on her lymphadenopathy, abdominal CT showed after colitis, no ascites, [id number] graft noted. No leukocytosis but the patient had 21% bandemia. Assessment & Plan #1 septic shock, fluid responsive. #2 acute diverticulitis. Affecting mainly the sigmoid area. No ascites or abscess formation. However, given the close proximity to recent graft placed in 2013, I am concerned about possible ischemic colitis as well. #3 plasmablastic multiple myeloma. Recently diagnosed. #4 compression fracture of thoracic spine status post fusion done a week ago. At [facility]. #5 COPD changes noted by CAT scan. #6 peripheral arterial disease with [id number] graft in 2013. Plan: #1 agree with your current management. #2 I will continue with Vanco and Zosyn. #3 I will stop Levaquin. #4 awaiting blood cultures. #5 appreciate oncology note. #6 IV fluid with normal saline at 150 mL seems adequate, I would add albumin on regular basis. To improve his hypoalbuminemia and increase his intravascular space. #7 agree with blood transfusion. #8 surgical consult in case the patient will require surgical intervention. #9 GI and DVT prophylaxis. #10 keep the patient nothing by mouth. #11 discussed with the and the daughter separately and together, all their questions being answered and the nurse and the progress of his illness. #12 case discussed with the staff on rounds. Critical care time spent with the patient was 45 minutes.
--- NOTE | 2017-09-28 13:32 | Pre-Operative Consultation ---
History General Date of Service: Sep 28, 2017. HPI HPI: The patient is a 57 year old male being seen for acute diverticulitis in the setting of new diagnosis of cancer. "Mr. Anders is a 57 year old man with a complicated PMH, including CAD with an inferior IL leading to ICM (baseline EF 45%) and PAD with an aorto-bifem graft in 2012. He was admitted to [facility] with thoracic back pain that had been ongoing for a few weeks. Scans there revealed innumerable lytic bone lesions, including a mass at T6-T8 that was encroaching on the cord. He underwent laminectomy with resection of the mass and ten stabilization. 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 CTs of his CAP also revealed widespread, though not bulky, lymphadenopathy. Bone marrow biopsy 09/23 confirmed myeloma, with plasma cells comprising 50% of marrow cellularity. He was discharged 09/24/17". He presented to [facility] with low-grade fevers, generalized weakness, and sweats. He was afebrile in the ER but became hypotensive requiring volume resuscitation, a CT here shows acute diverticulitis. The are no other obvious infectious sources. His operative wound appears healthy and uninfected. He also denies any localizing signs of infection, such as dysuria, urinary frequency, purulent cough, or diarrhea. He has had some response to IV abx but remains confused and tachycardic. Procedure Urgency: Acute Risk Assessment Daily beta daksha use?: No Problem List Medical Problems/Surgical problems: Multiple myeloma as above Peripheral vascular disease s/p aortobifemoral bypass Acute diverticulitis recent back surgical intervention for lytic lesion at [facility] Sepsis Elevated PT Dehydration Medical & Surgical History Past Medical History: cancer (multiple myeloma w/multiple lytic bone lesions), heart attack, heart disease, vascular disease Past Surgical History: spinal surgery, other (aorto-bifem) Family History Family History: no pertinent family hx Social History Hx Tobacco Use In Past Year?: No Smoking Status: Unknown if Ever Smoked Drug Use: none Marital status: Housing status: lives with family Occupation status: employed Immunizations Have You Had Influenza Vaccine: Unknown Have You Had Tetanus Vaccine: Unknown History of Pneumococcal: Unknown History Hepatitis B Vaccine: Unknown Allergies Allergies: Coded Allergies: Atorvastatin (Verified Adverse Reaction, Unknown, myalgias, 09/27/17) Simvastatin (Verified Adverse Reaction, Unknown, myalgias, 09/27/17) Medications Current Inpatient Medications Current Inpatient Medications Medications (Trade) Dose Ordered Sig/Malik Route Start Time Stop Time Status Last Admin Dose Admin Morphine Sulfate (MoRPHine SULFATE INJ) 4 mg Q2H PRN IV 09/27/17 19:30 10/11/17 19:29 Enoxaparin Sodium (Lovenox Inj) 40 mg HS SC 09/27/17 21:30 10/27/17 21:29 09/27/17 22:13 40 MG Potassium Chloride/Sodium Chloride 1,000 ml @ 150 mls/hr Q6H40M IV 09/27/17 21:30 10/27/17 21:29 09/28/17 10:12 150 MLS/HR Ondansetron HCl (Zofran Inj) 4 mg Q6H PRN IV 09/27/17 19:45 10/27/17 19:44 Pantoprazole Sodium 40 mg/ Syringe 10 ml @ 5 mls/min DAILY@11 IV 09/28/17 11:00 10/28/17 10:59 09/28/17 10:12 5 MLS/MIN Acetaminophen 100 ml @ 400 mls/hr Q8H PRN IV 09/27/17 19:45 10/27/17 19:44 09/28/17 02:22 400 MLS/HR Piperacillin Sod/ Tazobactam Sod 3.375 gm/Dextrose 115 ml @ 28.75 mls/ hr Q8H IV 09/27/17 22:00 09/29/17 21:59 09/28/17 06:07 28.75 MLS/HR Vancomycin HCl 1250 mg/Sodium Chloride 275 ml @ 125 mls/hr Q12H IV 09/27/17 22:00 09/29/17 21:59 09/28/17 10:11 125 MLS/HR Miscellaneous Information (Consult) 1 ea UD PRN N/A 09/27/17 19:45 10/27/17 19:44 Miscellaneous Information (Consult) 1 ea UD PRN N/A 09/27/17 19:45 10/27/17 19:44 Ioversol (Optiray 320) 100 ml UD PRN IV 09/27/17 20:15 10/01/17 20:14 Albumin Human (Albumin 25%) 12.5 gm Q4 IV 09/28/17 12:00 09/30/17 08:01 09/28/17 11:46 12.5 GM Review of Systems Review of Systems Constitutional: chills, fever Eyes: reports: no symptoms ENT: reports: no symptoms reported Cardiovascular: denies: chest pain, chest tightness, chest pressure Respiratory: denies: cough, short of breath, stridor, cyanosis Gastrointestinal: abdominal pain, denies constipation, denies diarrhea, denies nausea, denies vomiting Genitourinary - Male: reports: no symptoms Musculoskeletal: back pain, denies joint pain, denies joint swelling, muscle stiffness Integumentary: denies change in hair/nails, denies dryness, denies lumps, denies rash Neurologic: reports: no symptoms Psychiatric: reports: no symptoms Endocrine: no symptoms Hematologic / Lymphatic: abnormal clotting, adenopathy, anemia, easy bleeding Physical Exam Physical Exam General Appearance: + ill appearance (confused) Ears, Nose, Throat: + normal ENT inspection Neck: No abnormal inspection, No tracheal deviation, No stiffness, No tenderness Respiratory: No decreased breath sounds, No rhonchi, No stridor, No wheezing Cardiovascular: + tachycardia, + systolic murmur, No gallop/S3, No diastolic murmur, No gallop/S4 Abdomen: + tenderness (mild), No abnormal bowel sounds, No hepatomegaly, No distension, No hernia, No organomegaly Extremities: No deformity, No swelling, No calf tenderness, No inflammation Neurologic/Psychiatric: No motor deficit/weakness, No disorientation, No sensory deficit Skin Characteristics: No diaphoresis, No pallor, No jaundice, No rash Lymphatic: + abnormal adenopathy Diagnostics Labs Labs Results Past 24 Hours Test 09/27/17 13:40 09/27/17 14:30 09/27/17 15:44 09/27/17 17:10 Range/Units Sodium Level 130 136-145 mmol/L Potassium Level 3.7 3.5-5.1 mmol/L Chloride Level 97 98-107 mmol/L Carbon Dioxide Level 28 21-32 mmol/L Anion Gap 5.0 3-11 mmol/L Blood Urea Nitrogen 20 7-18 mg/dl Creatinine 1.13 0.60-1.40 mg/dl Estimated GFR () 82.0 Estimated GFR (Non- 70.8 BUN/Creatinine Ratio 17.5 10-20 Random Glucose 77 70-99 mg/dl Lactic Acid Level 1.3 0.4-2.0 mmol/L Calcium Level 7.7 8.5-10.1 mg/dl Total Bilirubin 0.4 0.2-1 mg/dl Direct Bilirubin 0.1 0-0.2 mg/dl Aspartate Amino Transf (AST/SGOT) 21 15-37 U/L Alanine Aminotransferase (ALT/SGPT) 22 12-78 U/L Alkaline Phosphatase 85 45-117 U/L Total Creatine Kinase 32 39-308 U/L Troponin I 0.044 0-0.045 ng/ml Total Protein 9.5 6.4-8.2 gm/dl Albumin 2.1 3.4-5.0 gm/dl Lipase 167 73-393 U/L White Blood Count 8.74 4.8-10.8 K/uL Red Blood Count 2.41 4.7-6.1 M/uL Hemoglobin 8.3 14.0-18.0 g/dL Hematocrit 24.3 42-52 % Mean Corpuscular Volume 100.8 80-100 fL Mean Corpuscular Hemoglobin 34.4 25-34 pg Mean Corpuscular Hemoglobin Concent 34.2 32-36 g/dl Platelet Count 186 130-400 K/uL Mean Platelet Volume 8.5 7.4-10.4 fL Neutrophils (%) (Auto) 61.5 % Lymphocytes (%) (Auto) 24.8 % Monocytes (%) (Auto) 8.9 % Eosinophils (%) (Auto) 0.7 % Basophils (%) (Auto) 0.1 % Neutrophils # (Auto) 5.37 1.4-6.5 K/uL Lymphocytes # (Auto) 2.17 1.2-3.4 K/uL Monocytes # (Auto) 0.78 0.11-0.59 K/uL Eosinophils # (Auto) 0.06 0-0.5 K/uL Basophils # (Auto) 0.01 0-0.2 K/uL RDW Standard Deviation 58.3 36.4-46.3 fL RDW Coefficient of Variation 15.9 11.5-14.5 % Immature Granulocyte % (Auto) 4.0 % Immature Granulocyte # (Auto) 0.35 0.00-0.02 K/uL Nucleated RBC Absolute Count (auto) 0.12 0-0 K/uL Nucleated Red Blood Cells % 1.4 % Polychromasia 1+ Basophilic Stippling 1+ Prothrombin Time 11.5 9.0-12.0 SECONDS Prothromb Time International Ratio 1.1 0.9-1.1 Activated Partial Thromboplast Time 21.0 21.0-31.0 SECONDS Partial Thromboplastin Ratio 0.8 Influenza Type A Antigen Neg for Influ A NEG Influenza Type B Antigen Neg for Influ B NEG Venous Blood pH 7.35 7.36-7.41 Venous Blood Partial Pressure CO2 51 38.0-50.0 mmHg Venous Blood Partial Pressure O2 24 mmHg Venous Blood HCO3 27 mmol/L Venous Blood Oxygen Saturation < 60.0 % Venous Blood Base Excess 1.2 mEq/L Urine Color YELLOW Urine Appearance CLEAR CLEAR Urine pH 5.5 4.5-7.5 Urine Specific [place] 1.019 1.000-1.030 Urine Protein NEG NEG Urine Glucose (UA) NEG NEG Urine Ketones NEG NEG Urine Occult Blood NEG NEG Urine Nitrite NEG NEG Urine Bilirubin NEG NEG Urine Urobilinogen NEG NEG Urine Leukocyte Esterase NEG NEG Urine WBC (Auto) 1-5 0-5 /hpf Urine RBC (Auto) 0-4 0-4 /hpf Urine Hyaline Casts (Auto) 0 0-5 /lpf Urine Epithelial Cells (Auto) 0-5 0-5 /lpf Urine Bacteria (Auto) NEG NEG Test 09/27/17 23:27 09/28/17 04:37 09/28/17 08:05 09/28/17 08:41 Range/Units Hemoglobin 8.1 6.9 14.0-18.0 g/dL Hematocrit 24.2 19.6 42-52 % Sodium Level 129 132 136-145 mmol/L Potassium Level 4.1 3.9 3.5-5.1 mmol/L Chloride Level 100 101 98-107 mmol/L Carbon Dioxide Level 23 25 21-32 mmol/L Anion Gap 6.0 6.0 3-11 mmol/L Blood Urea Nitrogen 17 15 7-18 mg/dl Creatinine 1.16 1.07 0.60-1.40 mg/dl Estimated GFR () 79.4 87.6 Estimated GFR (Non- 68.5 75.6 BUN/Creatinine Ratio 14.7 14.0 10-20 Random Glucose 71 87 70-99 mg/dl Calcium Level 7.2 7.3 8.5-10.1 mg/dl Magnesium Level 1.9 1.8 1.8-2.4 mg/dl White Blood Count 4.34 4.8-10.8 K/uL Red Blood Count 1.95 4.7-6.1 M/uL Mean Corpuscular Volume 100.5 80-100 fL Mean Corpuscular Hemoglobin 35.4 25-34 pg Mean Corpuscular Hemoglobin Concent 35.2 32-36 g/dl Platelet Count 131 130-400 K/uL Mean Platelet Volume 8.6 7.4-10.4 fL Neutrophils (%) (Auto) 68.9 % Lymphocytes (%) (Auto) 16.1 % Monocytes (%) (Auto) 9.7 % Eosinophils (%) (Auto) 0.5 % Basophils (%) (Auto) 0.0 % Neutrophils # (Auto) 2.99 1.4-6.5 K/uL Lymphocytes # (Auto) 0.70 1.2-3.4 K/uL Monocytes # (Auto) 0.42 0.11-0.59 K/uL Eosinophils # (Auto) 0.02 0-0.5 K/uL Basophils # (Auto) 0.00 0-0.2 K/uL RDW Standard Deviation 58.8 36.4-46.3 fL RDW Coefficient of Variation 16.1 11.5-14.5 % Immature Granulocyte % (Auto) 4.8 % Immature Granulocyte # (Auto) 0.21 0.00-0.02 K/uL Nucleated RBC Absolute Count (auto) 0.06 0-0 K/uL Nucleated Red Blood Cells % 1.3 % Basophilic Stippling 1+ Anisocytosis PRESENT Tear Drop Cells OCCASIONAL Prothrombin Time 13.1 9.0-12.0 SECONDS Prothromb Time International Ratio 1.3 0.9-1.1 Activated Partial Thromboplast Time 26.8 21.0-31.0 SECONDS Partial Thromboplastin Ratio 1.0 Est Creatinine Clear Calc Drug Dose 78.2 ml/min Total Bilirubin 0.6 0.2-1 mg/dl Direct Bilirubin 0.1 0-0.2 mg/dl Aspartate Amino Transf (AST/SGOT) 81 15-37 U/L Alanine Aminotransferase (ALT/SGPT) 23 12-78 U/L Alkaline Phosphatase 76 45-117 U/L Total Protein 7.8 6.4-8.2 gm/dl Albumin 1.7 3.4-5.0 gm/dl Stool Occult Blood NEGATIVE NEGATIVE Erythrocyte Sedimentation Rate 15 0-14 mm/hr Venous Blood pH 7.48 7.36-7.41 Venous Blood Partial Pressure CO2 31 38.0-50.0 mmHg Venous Blood Partial Pressure O2 68 mmHg Venous Blood HCO3 23 mmol/L Venous Blood Oxygen Saturation 92.2 % Venous Blood Base Excess -0.5 mEq/L Lactic Acid Level 0.7 0.4-2.0 mmol/L Ammonia 48.9 11-32 umol/L C-Reactive Protein 12.10 0-0.29 mg/dl Procalcitonin 0.23 0-0.5 ng/ml Random Cortisol 15.51 mcg/dl Test 09/28/17 12:06 Range/Units Bedside Glucose 98 70-99 mg/dl Microbiology Results 09/27/17 Blood Culture, Received Pending 09/27/17 Blood Culture, Received Pending 09/28/17 MRSA DNA Surveillance Screen - Final, Complete Specimen Negative for MRSA by DNA Probe 09/27/17 Urine Culture - Preliminary, Resulted NO GROWTH - LESS THAN 1,000 COLONIES/... Diagnostic Radiology Diagnostic Radiology CT ABD/PELVIS IV CONTRAST ONLY CLINICAL HISTORY: Multiple myeloma. Tachycardia. Shortness of breath. Possible sepsis. COMPARISON STUDY: May 19, 2018 TECHNIQUE: Following the IV administration of 100 mL of Optiray-320, CT scan of the abdomen and pelvis was performed from the lung bases to the proximal femurs. Images are reviewed in the axial, sagittal, and coronal planes. IV contrast was administered without complication. A dose lowering technique was utilized adhering to the principles of ALARA. CT DOSE: 1344.91 mGy.cm FINDINGS: Lower chest: There is pulmonary emphysema. There is lower lobe bronchial wall thickening. There is basilar atelectasis. Liver: The contrast-enhanced liver is normal in size, contour, and attenuation. There is no intrahepatic biliary ductal dilatation. The hepatic veins and portal veins are patent. Gallbladder: Unremarkable. Spleen: Normal in size and attenuation. Pancreas: Unremarkable. Adrenal glands: Unremarkable. Kidneys: There is symmetric renal cortical enhancement. The kidneys are normal in size without hydronephrosis. Bowel: There are no transition zones indicate bowel obstruction. There is acute sigmoid diverticulitis. There are no findings to indicate a peridiverticular abscess. The appendix appears normal. Peritoneum: There is no intraperitoneal free air or abdominal ascites. Vasculature: Advanced atheromatous changes are present within the distal aorta and iliac vessels. 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 Adenopathy: There is an enlarged anterior pericardial lymph node measuring 2.5 cm. There are enlarged lymph nodes within the gastrohepatic ligament. There are enlarged peripancreatic lymph nodes. There are enlarged aortocaval lymph nodes. Pelvic viscera: There are prostatic calcifications. Skeletal structures: There is widespread lytic bone disease. IMPRESSION: 1. Extensive lytic bone disease similar to the prior study. The findings are consistent with metastatic disease or myeloma 2. Moderate adenopathy 3. Worsening acute sigmoid diverticulitis. No evidence of peridiverticular abscess 4. Normal appendix 5. No evidence of bowel obstruction. No evidence of free air Impression Assessment and Plan Assessment and Plan Acute diverticulitis in setting of new diagnosis of aggressive multiple myeloma -septic but some response to IV abx -doubt ischemic colitis with CT scan c/w diverticulitis and normal lactate; needs IV gram negative/anaerobic coverage -anemia and elevated PT -very poor surgical candidate -would recommend transfer back to [facility] for treatment options in case operative intervention needed
[2017-09-28] MEDS ORDERED: HYDROmorphone INJ 1 MG/ML SYR ONE (13:41)
[2017-09-28] MEDS ORDERED: HYDROmorphone INJ 1 MG/ML SYR IV PRN (13:45)
--- NOTE | 2017-09-28 16:07 | Medical Consult ---
Consultation Date of Consultation: Sep 28, 2017. Attending Physician: Michel Beckman MD Reason for Consultation: Multiple myeloma, sepsis, ten placement History of Present Illness 57-year-old male with history of peripheral arterial disease status post fem- pop bypass, who presented in September with severe midback pain, and was found to have evidence of widely metastatic the bony lesions, with biopsy showing aggressive type of myeloma/lymphoma. He underwent removal of thoracic tumor with spine stabilization, and was well subsequently until 1-2 days prior to admission when he developed acute onset of weakness, fatigue, fever, chills, and enlarging inguinal lymph node. He was brought to the hospital where he is found to be significantly hypotensive. He was given fluid resuscitation with improvement. He underwent CT scan, read by me, which shows evidence of diverticulitis. Surgical site appears uninfected. Blood cultures have been negative so far. Patient has had intermittent fever. Being treated with vancomycin and Zosyn, has shown some improvement in mental status and hemodynamic status. Past Medical/Surgical History Medical Problems: (1) Dehydration Status: Acute (2) Rib pain on right side Status: Acute Medical Problems: (1) Multiple myeloma (2) Sepsis Peripheral arterial disease status post left fem-pop bypass Thoracic spine surgery Family History Cancer Social History Smoking Status: Unknown if Ever Smoked Smokeless Tobacco Use: No Alcohol Use: none Drug Use: none Marital Status: Housing Status: lives with family Occupation Status: employed Allergies Coded Allergies: Atorvastatin (Verified Adverse Reaction, Unknown, myalgias, 09/27/17) Simvastatin (Verified Adverse Reaction, Unknown, myalgias, 09/27/17) Current Inpatient Medications Current Inpatient Medications Medications (Trade) Dose Ordered Sig/Malik Route Start Time Stop Time Status Last Admin Dose Admin Enoxaparin Sodium (Lovenox Inj) 40 mg HS SC 09/27/17 21:30 10/27/17 21:29 09/27/17 22:13 40 MG Potassium Chloride/Sodium Chloride 1,000 ml @ 150 mls/hr Q6H40M IV 09/27/17 21:30 10/27/17 21:29 09/28/17 10:12 150 MLS/HR Ondansetron HCl (Zofran Inj) 4 mg Q6H PRN IV 09/27/17 19:45 10/27/17 19:44 Pantoprazole Sodium 40 mg/ Syringe 10 ml @ 5 mls/min DAILY@11 IV 09/28/17 11:00 10/28/17 10:59 09/28/17 10:12 5 MLS/MIN Acetaminophen 100 ml @ 400 mls/hr Q8H PRN IV 09/27/17 19:45 10/27/17 19:44 09/28/17 02:22 400 MLS/HR Piperacillin Sod/ Tazobactam Sod 3.375 gm/Dextrose 115 ml @ 28.75 mls/ hr Q8H IV 09/27/17 22:00 09/29/17 21:59 09/28/17 13:45 28.75 MLS/HR Vancomycin HCl 1250 mg/Sodium Chloride 275 ml @ 125 mls/hr Q12H IV 09/27/17 22:00 09/29/17 21:59 09/28/17 10:11 125 MLS/HR Miscellaneous Information (Consult) 1 ea UD PRN N/A 09/27/17 19:45 10/27/17 19:44 Miscellaneous Information (Consult) 1 ea UD PRN N/A 09/27/17 19:45 10/27/17 19:44 Ioversol (Optiray 320) 100 ml UD PRN IV 09/27/17 20:15 10/01/17 20:14 Albumin Human (Albumin 25%) 12.5 gm Q4 IV 09/28/17 12:00 09/30/17 08:01 09/28/17 11:46 12.5 GM Hydromorphone HCl (Dilaudid Inj) 1 mg Q4H PRN IV 09/28/17 13:45 10/12/17 13:44 Review of Systems Constitutional: + fever, + weakness, + fatigue Eyes: No problem reported ENT: No problem reported Respiratory: No problem reported Cardiovascular: No problem reported Abdomen: + pain Musculoskeletal: + problem reported (Back pain) Genitourinary - Male: No problem reported Neurologic: + weakness Psychiatric: No problem reported Endocrine: No problem reported Hematologic / Lymphatic: No problem reported Integumentary: No problem reported Allergic / Immunologic: No problem reported Physical Exam Date Time Temp Pulse Resp B/P (MAP) Pulse Ox O2 Delivery O2 Flow Rate FiO2 09/28/17 14:00 108 22 88/54 (65) 94 Nasal Cannula 2.0 09/28/17 12:00 37.8 113 18 100/57 (71) 98 Nasal Cannula 2.0 09/28/17 12:00 98 2.0 09/28/17 11:42 38.8 109 18 99/62 99 2.0 09/28/17 10:50 36.8 116 24 107/77 96 2.0 09/28/17 10:20 37.1 117 21 106/64 95 2.0 09/28/17 10:05 38.3 124 18 99/62 96 2.0 09/28/17 09:50 38.3 122 18 100/67 96 2.0 09/28/17 09:24 37.6 120 27 100/59 95 2.0 09/28/17 09:19 37.6 125 20 97/65 96 2.0 09/28/17 08:55 96 2.0 09/28/17 08:55 38.0 119 15 92/58 (69) 96 Nasal Cannula 2.0 09/28/17 08:33 36.9 123 20 92/63 97 2.0 09/28/17 08:13 36.9 113 20 95/57 95 2.0 09/28/17 08:00 95 Nasal Cannula 2.0 09/28/17 08:00 36.8 110 20 88/55 92 09/28/17 07:30 36.8 112 20 87/63 93 2.0 09/28/17 07:25 20 09/28/17 07:10 36.5 105 20 88/65 92 2.0 09/28/17 06:50 37.4 108 89/66 09/28/17 06:30 109 93/62 (72) 09/28/17 06:00 105 91/65 (74) 09/28/17 05:30 118 101/66 (78) 09/28/17 05:00 111 89/62 (71) 09/28/17 04:19 37.6 114 20 93/62 (72) 92 Nasal Cannula 2.0 09/28/17 04:00 92 Nasal Cannula 2.0 09/28/17 03:00 120 83/57 (66) 09/28/17 02:30 121 85/58 (67) 09/28/17 02:20 39.3 09/28/17 02:00 127 105/74 (84) 09/28/17 01:30 120 102/64 (77) 09/28/17 01:00 111 90/61 (71) 09/28/17 00:30 100 92/64 (73) 09/28/17 00:00 93 Nasal Cannula 2.0 09/28/17 00:00 110 104/69 (81) 09/27/17 23:30 100 87/61 (70) 09/27/17 23:20 36.9 102 20 84/61 (69) 98 Nasal Cannula 2.0 09/27/17 23:10 107 102/63 (76) 09/27/17 21:10 37.4 120 18 96/67 93 Nasal Cannula 2.0 09/27/17 20:30 122 24 102/53 96 Nasal Cannula 2.0 09/27/17 20:00 123 24 102/53 96 Nasal Cannula 2.0 09/27/17 19:09 127 18 105/68 96 Room Air 09/27/17 19:06 127 09/27/17 18:51 129 19 95 Room Air 09/27/17 18:21 128 19 96 09/27/17 18:05 91/58 09/27/17 18:05 128 20 91/58 95 Room Air 09/27/17 17:51 127 25 94 09/27/17 17:48 126 21 76/48 95 Room Air 09/27/17 17:47 76/48 09/27/17 16:16 118 21 90 09/27/17 16:11 110 24 90 09/27/17 16:06 111 19 92 General Appearance: WD/WN, no apparent distress Head: normocephalic, atraumatic Eyes: normal inspection, EOMI, sclerae normal ENT: normal ENT inspection, hearing grossly normal, pharynx normal Neck: supple, thyroid normal, trachea midline Respiratory/Chest: chest non-tender, lungs clear, normal breath sounds, no respiratory distress Cardiovascular: regular rate, rhythm, no gallop, + systolic murmur Abdomen/GI: normal bowel sounds, soft, no organomegaly, + tenderness, + distended Back: normal inspection, no CVA tenderness Extremities/Musculoskelatal: normal inspection, no calf tenderness, non-tender Neurologic/Psych: alert, + pertinent finding (Slightly confused, no obvious focal deficits) Skin: normal color, warm/dry, no rash Lymphatic: + inguinal node abnormality Laboratory Results Date/Time Source Procedure Growth Status 09/28/17 08:50 Nasal MRSA DNA Surveillance Screen - Final Specimen Negative for MRSA by DNA Probe Complete 09/27/17 17:05 Urine , Clean Catch Urine Culture - Preliminary NO GROWTH - LESS THAN 1,000 COLONIES/... Resulted Last 24 Hours Test 09/27/17 17:10 09/27/17 23:27 09/28/17 04:37 09/28/17 08:05 Urine Color YELLOW Urine Appearance CLEAR Urine pH 5.5 Urine Specific [place] 1.019 Urine Protein NEG Urine Glucose (UA) NEG Urine Ketones NEG Urine Occult Blood NEG Urine Nitrite NEG Urine Bilirubin NEG Urine Urobilinogen NEG Urine Leukocyte Esterase NEG Urine WBC (Auto) 1-5 /hpf Urine RBC (Auto) 0-4 /hpf Urine Hyaline Casts (Auto) 0 /lpf Urine Epithelial Cells (Auto) 0-5 /lpf Urine Bacteria (Auto) NEG Hemoglobin 8.1 g/dL 6.9 g/dL Hematocrit 24.2 % 19.6 % Sodium Level 129 mmol/L 132 mmol/L Potassium Level 4.1 mmol/L 3.9 mmol/L Chloride Level 100 mmol/L 101 mmol/L Carbon Dioxide Level 23 mmol/L 25 mmol/L Anion Gap 6.0 mmol/L 6.0 mmol/L Blood Urea Nitrogen 17 mg/dl 15 mg/dl Creatinine 1.16 mg/dl 1.07 mg/dl Estimated GFR () 79.4 87.6 Estimated GFR (Non- 68.5 75.6 BUN/Creatinine Ratio 14.7 14.0 Random Glucose 71 mg/dl 87 mg/dl Calcium Level 7.2 mg/dl 7.3 mg/dl Magnesium Level 1.9 mg/dl 1.8 mg/dl White Blood Count 4.34 K/uL Red Blood Count 1.95 M/uL Mean Corpuscular Volume 100.5 fL Mean Corpuscular Hemoglobin 35.4 pg Mean Corpuscular Hemoglobin Concent 35.2 g/dl Platelet Count 131 K/uL Mean Platelet Volume 8.6 fL Neutrophils (%) (Auto) 68.9 % Lymphocytes (%) (Auto) 16.1 % Monocytes (%) (Auto) 9.7 % Eosinophils (%) (Auto) 0.5 % Basophils (%) (Auto) 0.0 % Neutrophils # (Auto) 2.99 K/uL Lymphocytes # (Auto) 0.70 K/uL Monocytes # (Auto) 0.42 K/uL Eosinophils # (Auto) 0.02 K/uL Basophils # (Auto) 0.00 K/uL RDW Standard Deviation 58.8 fL RDW Coefficient of Variation 16.1 % Immature Granulocyte % (Auto) 4.8 % Immature Granulocyte # (Auto) 0.21 K/uL Nucleated RBC Absolute Count (auto) 0.06 K/uL Nucleated Red Blood Cells % 1.3 % Basophilic Stippling 1+ Anisocytosis PRESENT Tear Drop Cells OCCASIONAL Prothrombin Time 13.1 SECONDS Prothromb Time International Ratio 1.3 Activated Partial Thromboplast Time 26.8 SECONDS Partial Thromboplastin Ratio 1.0 Est Creatinine Clear Calc Drug Dose 78.2 ml/min Total Bilirubin 0.6 mg/dl Direct Bilirubin 0.1 mg/dl Aspartate Amino Transf (AST/SGOT) 81 U/L Alanine Aminotransferase (ALT/SGPT) 23 U/L Alkaline Phosphatase 76 U/L Total Protein 7.8 gm/dl Albumin 1.7 gm/dl Stool Occult Blood NEGATIVE Test 09/28/17 08:41 09/28/17 12:06 Erythrocyte Sedimentation Rate 15 mm/hr Venous Blood pH 7.48 Venous Blood Partial Pressure CO2 31 mmHg Venous Blood Partial Pressure O2 68 mmHg Venous Blood HCO3 23 mmol/L Venous Blood Oxygen Saturation 92.2 % Venous Blood Base Excess -0.5 mEq/L Lactic Acid Level 0.7 mmol/L Ammonia 48.9 umol/L C-Reactive Protein 12.10 mg/dl Procalcitonin 0.23 ng/ml Random Cortisol 15.51 mcg/dl Bedside Glucose 98 mg/dl Patient Name: KAITLIN BUI Unit Number: [id number] Dictated: 09/27/172111 Transcribed: 09/27/172111 ARG Printed Date/Time: [~ rep prt dt]/[~ rep prt tm] [~ rep ct labl] - [~ rep ct ivnm] [facility] [place] [address] Dictated: 09/27/172111 Transcribed: 09/27/172111 ARG Printed Date/Time: [~ rep prt dt]/[~ rep prt tm] [~ rep ct labl] - [~ rep ct ivnm] [~ rep ct add3]] CT ABD/PELVIS IV CONTRAST ONLY CLINICAL HISTORY: Multiple myeloma. Tachycardia. Shortness of breath. Possible sepsis. COMPARISON STUDY: May 19, 2018 TECHNIQUE: Following the IV administration of 100 mL of Optiray-320, CT scan of the abdomen and pelvis was performed from the lung bases to the proximal femurs. Images are reviewed in the axial, sagittal, and coronal planes. IV contrast was administered without complication. A dose lowering technique was utilized adhering to the principles of ALARA. CT DOSE: 1344.91 mGy.cm FINDINGS: Lower chest: There is pulmonary emphysema. There is lower lobe bronchial wall thickening. There is basilar atelectasis. Liver: The contrast-enhanced liver is normal in size, contour, and attenuation. There is no intrahepatic biliary ductal dilatation. The hepatic veins and portal veins are patent. Gallbladder: Unremarkable. Spleen: Normal in size and attenuation. Pancreas: Unremarkable. Adrenal glands: Unremarkable. Kidneys: There is symmetric renal cortical enhancement. The kidneys are normal in size without hydronephrosis. Bowel: There are no transition zones indicate bowel obstruction. There is acute sigmoid diverticulitis. There are no findings to indicate a peridiverticular abscess. The appendix appears normal. Peritoneum: There is no intraperitoneal free air or abdominal ascites. Vasculature: Advanced atheromatous changes are present within the distal aorta and iliac vessels. 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 Adenopathy: There is an enlarged anterior pericardial lymph node measuring 2.5 cm. There are enlarged lymph nodes within the gastrohepatic ligament. There are enlarged peripancreatic lymph nodes. There are enlarged aortocaval lymph nodes. Pelvic viscera: There are prostatic calcifications. Skeletal structures: There is widespread lytic bone disease. IMPRESSION: 1. Extensive lytic bone disease similar to the prior study. The findings are consistent with metastatic disease or myeloma 2. Moderate adenopathy 3. Worsening acute sigmoid diverticulitis. No evidence of peridiverticular abscess 4. Normal appendix 5. No evidence of bowel obstruction. No evidence of free air Electronically signed by: Saravanan Santana M.D. 09/27/2017 9:18 PM Dictated Date/Time: 09/27/2017 9:12 PM The status of this report is Signed. Draft = Not yet reviewed or approved by Radiologist. Signed = Reviewed and approved by Radiologist. <AttendingPhy>Paddy Kolb M.D.</AttendingPhy> <FamilyPhy>Valeria Lackey C.R.NNikosPNikos</FamilyPhy> <PrimaryPhy>Valeria Lackey C.RNikosNNikosP.</PrimaryPhy> < UnitNumber>[id number]</UnitNumber> <VisitNumber>[id number]</VisitNumber> < PatientName>PILI BUIMARIELLE Medeiros</PatientName> <DateOfBirth>1960</DateOfBirth> < Location>[facility]</Location> <ServiceDate>09/27/17</ServiceDate> <MNE>ESINDI</MNE> < OrderingPhy>Kirill Gann M.D.</OrderingPhy> <OrderingPhyMNE>f rep ord dr tejada</ OrderingPhyMNE> <DictatingPhyMNE>f rep dict dr tejada</DictatingPhyMNE> <CCListMNE> f rep ct mne</CCListMNE> <AdmittingPhyMNE>f pt admit dr tejada</AdmittingPhyMNE> < AttendingPhyMNE>f pt attend dr tejada</AttendingPhyMNE> <ConsultingPhyMNE>f pt consult dr tejada</ConsultingPhyMNE> <FamilyPhyMNE>f pt fam dr tejada</FamilyPhyMNE> <OtherPhyMNE>f pt other dr tejada</OtherPhyMNE> < PrimaryPhyMNE>f pt prim care dr tejada</PrimaryPhyMNE> <ReferringPhyMNE>f pt referring dr tejada</ReferringPhyMNE> Assessment & Plan 57-year-old male with aggressive myeloma/lymphoma with widely metastatic disease now presents with fever and evidence of diverticulitis. Patient should be continued on IV vancomycin and Zosyn pending further culture results. See no need for urgent surgical intervention at present time. Length of IV antibiotics will be determined by clinical response. Case discussed in detail with patient's and family. Will follow.
[2017-09-28] MEDS: ENOXAPARIN 40 MG/0.4 ML SYR SC SCH (19:41)
[2017-09-28] MEDS ORDERED: SODIUM CHLORIDE 0.9% 500ML 500 ML IV ONE (21:00)
[2017-09-28] MEDS ORDERED: NURSING VERBAL MED ORDER ONE ×2 (21:00→22:15)
[2017-09-28 21:20] LABS: HEMOGLOBIN 6.6 g/dL (14.0-18.0)
[2017-09-28 21:38] LABS: CALCIUM 6.4 mg/dl (8.5-10.1); CREATININE 0.8 mg/dl (0.60-1.40); POTASSIUM 4.5 mmol/L (3.5-5.1)
[2017-09-28] MEDS: MAG SULFATE 50% INJ 1 GM in DEXTROSE 5% 100ML IV SCH ×2 (22:24→23:30)
[2017-09-28] MEDS ORDERED: KETOROLAC TROMETHAMINE 15 MG/ML VIAL ONE (23:39)
[2017-09-28] MEDS ORDERED: KETOROLAC TROMETHAMINE 15 MG/ML VIAL IV. STA (23:41)
[2017-09-29] VITALS (86 sets, daily range): BP systolic 74–121; BP diastolic 51–91; PULSE 77–114; TEMP 36.5–36.8; O2SAT 87–100
[2017-09-29] MEDS: NYSTATIN SUSP 500,000 U/5 ML UDC PO SCH
[2017-09-29] MEDS: ALBUMIN HUMAN 25% 12.5 GM/50 ML VIAL IV SCH ×2 (03:43→08:02)
[2017-09-29 06:03] LABS: ALBUMIN 2.3 gm/dl (3.4-5.0); CALCIUM 7.6 mg/dl (8.5-10.1); CREATININE 1.18 mg/dl (0.60-1.40); POTASSIUM 3.9 mmol/L (3.5-5.1)
[2017-09-29 06:06] LABS: HEMOGLOBIN 10.9 g/dL (14.0-18.0); MEAN CELL VOLUME 88.8 fL (80-100); MEAN CORPUSCULAR HEMOGLOBIN 31.2 pg (25-34); MEAN CORPUSCULAR HGB CONC 35.2 g/dl (32-36); MEAN PLATELET VOLUME 8.6 fL (7.4-10.4); PLATELET COUNT 116 K/uL (130-400); RED CELL DISTRIBUTION WIDTH CV 20.2 % (11.5-14.5); RED CELL DISTRIBUTION WIDTH SD 64.6 fL (36.4-46.3); WHITE BLOOD COUNT 5.38 K/uL (4.8-10.8)
[2017-09-29 06:25] LABS: INR 1.1 (0.9-1.1); PTT PATIENT 27.4 SECONDS (21.0-31.0)
[2017-09-29 06:36] LABS: BASO % 0.2 %; BASO ABS # 0.01 K/uL (0-0.2); EOS % 1.1 %; EOS ABS # 0.06 K/uL (0-0.5); IG# 0.15 K/uL (0.00-0.02); LYMPH % 20.8 %; LYMPH ABS # 1.12 K/uL (1.2-3.4); MONO ABS # 0.54 K/uL (0.11-0.59); NEUT % 65.1 %
[2017-09-29] MEDS: PIPERACILL/TAZOBAC IV 3.375 GM in DEXTROSE 5% 100ML 100 ML IV SCH ×2 (06:50→15:26)
[2017-09-29] MEDS ORDERED: HYDROmorphone INJ 0.5 MG/0.5 ML SYR IV PRN (08:30)
[2017-09-29] MEDS ORDERED: HYDROCORTISONE IV 100 MG in SYRINGE 0 ML IV ONE (09:45)
[2017-09-29] MEDS: NSS + 20MEQ KCL 1000ML 1,000 ML IV SCH ×2 (10:11→17:07)
[2017-09-29] MEDS: VANCOMYCIN INJ 1,250 MG in SODIUM CHLORIDE 0.9% 250ML 250 ML IV SCH (10:11)
[2017-09-29] MEDS: FAMOTIDINE IV INJ 20 MG in SYRINGE 3 ML IV SCH ×2 (10:27→21:26)
[2017-09-29] MEDS: OXYCODONE HCL IR 5 MG TAB (IMMEDIATE RELEASE) PO PRN (10:31)
--- NOTE | 2017-09-29 11:10 | Hematology/Oncology Prog Note ---
Hematology/Onc Progress Note Date of Service Sep 29, 2017. 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 lymphoma Diverticulitis Shock rule out septic shock Medications Medications Administered Medications (Trade) Dose Ordered Sig/Malki Route Start Time Stop Time Status Last Admin Dose Admin Vancomycin HCl 1000 mg/Sodium Chloride 270 ml @ 125 mls/hr ONE STAT IV 09/27/17 14:11 09/27/17 16:20 DC 09/27/17 14:53 125 MLS/HR Sodium Chloride 1,000 ml @ 2,000 mls/hr Q30M ONCE IV 09/27/17 14:11 09/27/17 14:40 DC 09/27/17 14:53 2,000 MLS/HR Piperacillin Sod/ Tazobactam Sod 4.5 gm/Dextrose 120 ml @ 200 mls/hr NOW STAT IV 09/27/17 14:11 09/27/17 14:46 DC 09/27/17 14:53 200 MLS/HR Sodium Chloride 1,000 ml @ 999 mls/hr Q1H1M STAT IV 09/27/17 17:53 09/27/17 18:53 DC 09/27/17 17:53 999 MLS/HR Morphine Sulfate (MoRPHine SULFATE INJ) 4 mg STK-MED ONCE .ROUTE 09/27/17 19:25 09/27/17 19:26 DC 09/27/17 19:34 4 MG Enoxaparin Sodium (Lovenox Inj) 40 mg HS SC 09/27/17 21:30 10/27/17 21:29 09/28/17 19:41 40 MG Potassium Chloride/Sodium Chloride 1,000 ml @ 150 mls/hr Q6H40M IV 09/27/17 21:30 10/27/17 21:29 09/28/17 23:30 150 MLS/HR Pantoprazole Sodium 40 mg/ Syringe 10 ml @ 5 mls/min DAILY@11 IV 09/28/17 11:00 09/29/17 09:36 DC 09/28/17 10:12 5 MLS/MIN Acetaminophen 100 ml @ 400 mls/hr Q8H PRN IV 09/27/17 19:45 10/27/17 19:44 09/28/17 02:22 400 MLS/HR Piperacillin Sod/ Tazobactam Sod 3.375 gm/Dextrose 115 ml @ 28.75 mls/ hr Q8H IV 09/27/17 22:00 09/29/17 21:59 09/29/17 06:50 28.75 MLS/HR Vancomycin HCl 1250 mg/Sodium Chloride 275 ml @ 125 mls/hr Q12H IV 09/27/17 22:00 09/29/17 21:59 09/28/17 20:23 125 MLS/HR Senna/Docusate Sodium (Senokot S Tab) 1 tab BID PO 09/27/17 21:00 09/28/17 08:21 DC 09/27/17 22:10 1 TAB Levofloxacin 500 mg/Prmx 100 ml @ 100 mls/hr Q24H IV 09/28/17 00:00 09/28/17 08:54 DC 09/28/17 00:12 100 MLS/HR Perflutren Lipid Microsphere (Definity) 3 ml ONE ONCE IV 09/28/17 07:24 09/28/17 07:25 DC 09/28/17 07:24 3 ML Albumin Human (Albumin 25%) 12.5 gm Q4 IV 09/28/17 12:00 09/29/17 09:28 DC 09/29/17 08:02 12.5 GM Hydromorphone HCl (Dilaudid Inj) 1 mg Q4H PRN IV 09/28/17 13:45 09/29/17 08:24 DC 09/28/17 19:40 1 MG Hydromorphone HCl (Dilaudid Inj) 1 mg STK-MED ONCE .ROUTE 09/28/17 13:41 09/28/17 13:42 DC 09/28/17 13:45 1 MG Sodium Chloride 500 ml @ 999 mls/hr Q31M ONCE IV 09/28/17 21:00 09/28/17 21:30 DC 09/28/17 21:08 999 MLS/HR Magnesium Sulfate 1 gm/Dextrose 102 ml @ 100 mls/hr Q1H IV 09/28/17 22:15 09/29/17 00:14 DC 09/28/17 23:30 100 MLS/HR Ketorolac Tromethamine (Toradol Inj) 15 mg STK-MED ONCE .ROUTE 09/28/17 23:39 09/28/17 23:40 DC 09/28/17 23:46 15 MG Subjective He seems oriented now. He denies abdominal pain. His daughter at is at the bedside. Remains mildly hypotensive Review of Systems: Constitutional: Negative for night sweats, or recent fever Eyes: Negative for event change of vision ENT: Negative for epistaxis, nasal discharge, sore throat, or deafness Cardiovascular: Negative for chest pain, palpitations, dizziness, diaphoresis Respiratory: Negative for new shortness of breath,hemoptysis, or purulent cough Gastrointestinal: Negative for diarrhea, hematemesis, melena, nausea, vomiting , or dyspepsia Integumentary (skin): Negative for rash or jaundice discoloration Neurological: Negative for weakness, seizure activity, headache, or dizziness Lymphatic/Hematologic: Negative for petechiae, bleeding or new adenopathy Musculoskeletal: Negative for new joint or back pain Allergic/Immunologic: Negative for unusual rash or pruritis. Vital Signs Vital Signs Past 12 Hours Date Time Temp Pulse Resp B/P (MAP) Pulse Ox O2 Delivery O2 Flow Rate FiO2 09/29/17 09:01 89 15 74/60 (65) 99 09/29/17 09:00 88 14 100 09/29/17 08:31 103 24 103/65 (78) 98 09/29/17 08:30 89 19 99 09/29/17 08:01 89 25 105/67 (80) 98 09/29/17 08:00 100 19 98 09/29/17 07:46 36.5 89 17 120/65 (83) 99 Nasal Cannula 2.0 09/29/17 07:40 96 2.0 09/29/17 07:31 94 20 96/62 (73) 98 09/29/17 07:30 90 13 100 09/29/17 07:16 89 20 117/73 (88) 94 09/29/17 07:01 99 19 101/65 (77) 98 09/29/17 07:00 96 21 97 09/29/17 05:46 88 20 111/64 (80) 87 Nasal Cannula 2.0 09/29/17 05:31 92 19 104/66 (79) 99 Nasal Cannula 2.0 09/29/17 05:16 86 21 111/70 (84) 98 Nasal Cannula 2.0 09/29/17 05:01 90 19 99/67 (78) 100 Nasal Cannula 2.0 09/29/17 04:46 87 20 101/65 (77) 98 Nasal Cannula 2.0 09/29/17 04:31 91 16 98/60 (73) 98 Nasal Cannula 2.0 09/29/17 04:01 36.6 95 15 108/63 (78) 97 Nasal Cannula 2.0 09/29/17 04:00 95 2.0 09/29/17 03:31 90 12 98/63 (75) 98 Nasal Cannula 2.0 09/29/17 03:01 81 20 103/62 (76) 96 Nasal Cannula 2.0 09/29/17 02:31 84 20 98/59 (72) 96 Nasal Cannula 2.0 09/29/17 02:15 85 18 94/62 97 2.0 09/29/17 02:01 83 14 99/64 (76) 99 Nasal Cannula 2.0 09/29/17 02:00 91 17 99/64 95 2.0 09/29/17 01:46 85 18 110/51 (70) 97 Nasal Cannula 2.0 09/29/17 01:45 90 17 110/51 97 2.0 09/29/17 01:31 89 13 100/63 (75) 95 Nasal Cannula 2.0 09/29/17 01:30 87 20 100/63 96 2.0 09/29/17 01:16 82 16 84/59 (67) 97 Nasal Cannula 2.0 09/29/17 01:15 81 11 84/59 95 2.0 09/29/17 01:01 89 16 103/61 (75) 95 Nasal Cannula 2.0 09/29/17 01:00 91 19 103/61 95 2.0 09/29/17 00:46 87 18 102/66 (78) 95 2.0 09/29/17 00:45 94 18 102/66 95 2.0 09/29/17 00:31 92 17 96/59 (71) 95 2.0 09/29/17 00:30 89 21 96/59 96 2.0 09/29/17 00:16 36.8 89 22 90/58 94 09/29/17 00:16 87 21 90/58 (69) 93 2.0 09/29/17 00:11 36.8 91 16 88/55 94 2.0 09/29/17 00:01 95 2.0 09/29/17 00:01 36.8 93 18 88/55 (66) 93 2.0 09/28/17 23:46 95 21 93/59 (70) 94 2.0 09/28/17 23:31 98 20 92/60 (71) 94 2.0 09/28/17 23:16 102 12 94/64 (74) 92 2.0 09/28/17 23:01 99 15 96/64 (75) 95 2.0 Physical Exam Constitutional: vitals are stable. oriented x2-3 Eyes: Eyes are MERNA EOMI without conjuctival erythema or icterus. ENT: External examination was negative for masses. Neck: Negative for masses or palpable thyromegaly Respiratory: Lung sounds were generally clear bilaterally Cardiovascular: Heart was RRR without significant murmur, gallops aoe rubs Gastrointestinal: No palpable hepatic or splenomegaly. The abdomen was soft with normal to slightly increased bowel sounds. Lymphatic system: there was no palpable peripheral lymphadenopathy Musculoskeletal System: The musculoskeletal system seemed concordant with age. Skin: The skin was negative for jaundice. Neurologic exam: The exam was negative for any focal findings. Deep tendon reflexes were equal and symmetrical. Laboratory Last 24 Hours Test 09/28/17 12:06 09/28/17 18:09 09/28/17 21:00 09/28/17 23:35 Bedside Glucose 98 mg/dl 85 mg/dl 96 mg/dl Hemoglobin 6.6 g/dL Hematocrit 19.0 % Sodium Level 134 mmol/L Potassium Level 4.5 mmol/L Chloride Level 106 mmol/L Carbon Dioxide Level 22 mmol/L Anion Gap 6.0 mmol/L Blood Urea Nitrogen 12 mg/dl Creatinine 0.80 mg/dl Est Creatinine Clear Calc Drug Dose 104.6 ml/min Estimated GFR () 113.3 Estimated GFR (Non- 97.8 BUN/Creatinine Ratio 14.9 Random Glucose 65 mg/dl Calcium Level 6.4 mg/dl Magnesium Level 1.5 mg/dl Test 09/29/17 04:25 09/29/17 05:21 09/29/17 09:24 White Blood Count K/uL 5.38 K/uL Red Blood Count M/uL 3.49 M/uL Hemoglobin g/dL 10.9 g/dL Hematocrit % 31.0 % Mean Corpuscular Volume fL 88.8 fL Mean Corpuscular Hemoglobin pg 31.2 pg Mean Corpuscular Hemoglobin Concent g/dl 35.2 g/dl Platelet Count K/uL 116 K/uL Mean Platelet Volume fL 8.6 fL Neutrophils (%) (Auto) % 65.1 % Lymphocytes (%) (Auto) % 20.8 % Monocytes (%) (Auto) % 10.0 % Eosinophils (%) (Auto) % 1.1 % Basophils (%) (Auto) % 0.2 % Neutrophils # (Auto) K/uL 3.50 K/uL Lymphocytes # (Auto) K/uL 1.12 K/uL Monocytes # (Auto) K/uL 0.54 K/uL Eosinophils # (Auto) K/uL 0.06 K/uL Basophils # (Auto) K/uL 0.01 K/uL RDW Standard Deviation fL 64.6 fL RDW Coefficient of Variation % 20.2 % Immature Granulocyte % (Auto) % 2.8 % Immature Granulocyte # (Auto) K/uL 0.15 K/uL Nucleated RBC Absolute Count (auto) K/uL Nucleated Red Blood Cells % % Toxic Granulation Platelet Estimate Prothrombin Time SECONDS 12.0 SECONDS Prothromb Time International Ratio 1.1 Activated Partial Thromboplast Time SECONDS 27.4 SECONDS Partial Thromboplastin Ratio 1.1 Anisocytosis PRESENT Sodium Level 134 mmol/L Potassium Level 3.9 mmol/L Chloride Level 104 mmol/L Carbon Dioxide Level 24 mmol/L Anion Gap 6.0 mmol/L Blood Urea Nitrogen 13 mg/dl Creatinine 1.18 mg/dl Est Creatinine Clear Calc Drug Dose 71.3 ml/min Estimated GFR () 77.8 Estimated GFR (Non- 67.1 BUN/Creatinine Ratio 10.8 Random Glucose 81 mg/dl Calcium Level 7.6 mg/dl Magnesium Level 2.3 mg/dl Total Bilirubin 0.9 mg/dl Direct Bilirubin 0.2 mg/dl Aspartate Amino Transf (AST/SGOT) 114 U/L Alanine Aminotransferase (ALT/SGPT) 32 U/L Alkaline Phosphatase 88 U/L Total Protein 8.0 gm/dl Albumin 2.3 gm/dl Vancomycin Level Trough 12.3 mcg/ml Assessment & Plan Status post T7 posterior laminectomy and debulking of epidural lesion on September 21. MRI of the thoracic spine done on September 20 comments about innumerable enhancing bony lesions throughout the axial skeleton compatible with multiple myeloma with a destructive lesion involving the posterior elements of T6 through T8 with encroachment of the spinal cord at T7. There is also pathologic fracture of T3 with mild vertebral body height loss and anterior displacement of the anterior fracture fragments. CT chest does also demonstrate mediastinal adenopathy (reviewed). CT of the abdomen and pelvis from before the surgery comments about mild colonic diverticular disease however there is a more focal area of wall thickening in the sigmoid colon that could represent a chronic inflammatory process. Recent CT scans done here here were reviewed. The pathology from [facility] [place] about the epidural mass having a look of a plasma cell myeloma with plasmablastic morphology. Bone marrow biopsy done on September 23 was consistent with plasma cell myeloma. They do state on the bone marrow biopsy that the plasma cells did have an atypical look without further description. Serum immunophenotyping demonstrates an IgG kappa monoclonal immunoglobulin. The concept of multiple myeloma and the issue of whether this is plasmablastic lymphoma was also reviewed with the family. I stated that multiple myeloma is a disease that is made up of uncontrolled growth of plasma cells. Plasmablastic lymphoma however he is an aggressive lymphoma that does have plasma cell features but again is a highly aggressive no Hodgkins lymphoma. Parenthetically this is usually seen in HIV settings. We will try to sort through with [facility] [place] as to whether the morphology with the material they have is more in keeping with an abnormal appearing multiple myeloma or the fact this is more in keeping with plasmablastic lymphoma. Plasmablastic lymphoma does require rather aggressive therapy that may outstrip what we could do locally, alternatively multiple myeloma of course we could treat nearby. In either case chemotherapy will be the backbone of his therapy and he is not in any clinical position currently to receive chemotherapy until he is able to recover from the presumed diverticulitis. We will begin our inquiries with the pathology department at [facility] [place] to define as best can be done as to the characterization of the neoplastic process.
--- NOTE | 2017-09-29 13:01 | Pharmacy Progress Note ---
Pharmacy Antibiotic Prog Note Date of Service Sep 29, 2017. Objective Height (Feet): 5 Height (Inches): 8.00 Weight (Kilograms): 84.400 Lab Results (24hrs): Test 09/28/17 21:00 09/28/17 23:35 09/29/17 04:25 09/29/17 05:21 Sodium Level 134 mmol/L (136-145) 134 mmol/L (136-145) Potassium Level 4.5 mmol/L (3.5-5.1) 3.9 mmol/L (3.5-5.1) Chloride Level 106 mmol/L (98-107) 104 mmol/L (98-107) Carbon Dioxide Level 22 mmol/L (21-32) 24 mmol/L (21-32) Anion Gap 6.0 mmol/L (3-11) 6.0 mmol/L (3-11) Blood Urea Nitrogen 12 mg/dl (7-18) 13 mg/dl (7-18) Creatinine 0.80 mg/dl (0.60-1.40) 1.18 mg/dl (0.60-1.40) Est Creatinine Clear Calc Drug Dose 104.6 ml/min 71.3 ml/min Estimated GFR () 113.3 77.8 Estimated GFR (Non- 97.8 67.1 BUN/Creatinine Ratio 14.9 (10-20) 10.8 (10-20) Random Glucose 65 mg/dl (70-99) 81 mg/dl (70-99) Calcium Level 6.4 mg/dl (8.5-10.1) 7.6 mg/dl (8.5-10.1) Magnesium Level 1.5 mg/dl (1.8-2.4) 2.3 mg/dl (1.8-2.4) Bedside Glucose 96 mg/dl (70-99) White Blood Count K/uL (4.8-10.8) 5.38 K/uL (4.8-10.8) Red Blood Count M/uL (4.7-6.1) 3.49 M/uL (4.7-6.1) Hemoglobin g/dL (14.0-18.0) 10.9 g/dL (14.0-18.0) Hematocrit % (42-52) 31.0 % (42-52) Mean Corpuscular Volume fL (80-100) 88.8 fL (80-100) Mean Corpuscular Hemoglobin pg (25-34) 31.2 pg (25-34) Mean Corpuscular Hemoglobin Concent g/dl (32-36) 35.2 g/dl (32-36) Platelet Count K/uL (130-400) 116 K/uL (130-400) Mean Platelet Volume fL (7.4-10.4) 8.6 fL (7.4-10.4) Neutrophils (%) (Auto) % 65.1 % Lymphocytes (%) (Auto) % 20.8 % Monocytes (%) (Auto) % 10.0 % Eosinophils (%) (Auto) % 1.1 % Basophils (%) (Auto) % 0.2 % Neutrophils # (Auto) K/uL (1.4-6.5) 3.50 K/uL (1.4-6.5) Lymphocytes # (Auto) K/uL (1.2-3.4) 1.12 K/uL (1.2-3.4) Monocytes # (Auto) K/uL (0.11-0.59) 0.54 K/uL (0.11-0.59) Eosinophils # (Auto) K/uL (0-0.5) 0.06 K/uL (0-0.5) Basophils # (Auto) K/uL (0-0.2) 0.01 K/uL (0-0.2) RDW Standard Deviation fL (36.4-46.3) 64.6 fL (36.4-46.3) RDW Coefficient of Variation % (11.5-14.5) 20.2 % (11.5-14.5) Immature Granulocyte % (Auto) % 2.8 % Immature Granulocyte # (Auto) K/uL (0.00-0.02) 0.15 K/uL (0.00-0.02) Nucleated RBC Absolute Count (auto) K/uL (0-0) Nucleated Red Blood Cells % % Toxic Granulation Platelet Estimate Prothrombin Time SECONDS (9.0-12.0) 12.0 SECONDS (9.0-12.0) Prothromb Time International Ratio (0.9-1.1) 1.1 (0.9-1.1) Activated Partial Thromboplast Time SECONDS (21.0-31.0) 27.4 SECONDS (21.0-31.0) Partial Thromboplastin Ratio 1.1 Anisocytosis PRESENT Total Bilirubin 0.9 mg/dl (0.2-1) Direct Bilirubin 0.2 mg/dl (0-0.2) Aspartate Amino Transf (AST/SGOT) 114 U/L (15-37) Alanine Aminotransferase (ALT/SGPT) 32 U/L (12-78) Alkaline Phosphatase 88 U/L (45-117) Total Protein 8.0 gm/dl (6.4-8.2) Albumin 2.3 gm/dl (3.4-5.0) Test 09/29/17 09:24 09/29/17 11:54 Vancomycin Level Trough 12.3 mcg/ml (SEE COMMENT) Bedside Glucose 88 mg/dl (70-99) Assessment & Plan Assessment * 57 yo M recently diagnosed with multiple myeloma (not yet started on chemotherapy per ICU rounds) being treated with Zosyn, vancomycin for diverticulitis. * ID on board - 09/28 note recommended continuing both Zosyn, vancomycin * Per ICU rounds 09/29 AM - vancomycin in as empiric 48 hour stop (last scheduled dose was 1000 this AM). OK to leave as empiric 48 hours for now, pending ID input * SCr is increasing, unclear clinical significance at this time * Goal vancomycin trough 15-20 mcg/mL * Trough of 12.3 mcg/mL is slightly subtherapeutic. Plan * No change needed to vancomycin for now per ICU rounds - scheduled to discontinue tonight * *IF* vancomycin is to be continued, OK to continue at current dose of 1250 mg IV q12h despite subtherapeutic trough as anticipate further accumulation as this may have been drawn prior to steady state (and renal function may be declining) Pharmacy will continue to follow and will adjust dose/frequency as necessary. Thank you
--- NOTE | 2017-09-29 14:48 | Critical Care Progress Note ---
Critical Care Progress Note Date of Service Sep 29, 2017. ICU Day ICU Day Number: [address] Soraya Crockett This is a 57-year-old male who was brought to the intensive care unit for acute mental status changes. The patient was treated for septic shock with hypovolemia. He was found to have acute diverticulitis of the sigmoid. There is no evidence of ascites or abscess formation. Patient was placed on bowel rest and given vancomycin and Zosyn. He was seen by infectious disease agreed to continue the Vanco and Zosyn. The patient had been on levofloxacin but this is been held. Volume resuscitation was achieved with boluses and normal saline at 150 mL/h as well as scheduled albumin. Surgical consult was placed and patient was seen by Dr. Linder who agreed with conservative management. The patient reports that pain is better controlled as the day has gone by. This morning when the patient was seen early he complained of pain and did receive some Dilaudid which resulted in some hypotension. Oxycodone was started and Dilaudid was cut to 1/2 mg IV as needed. This afternoon, the patient states his pain is generally controlled. The patient continued with confusion and disorientation this morning. This seems to be improved as the day goes by. The patient denies any fever or chills. He has no diaphoresis. He does complain of hunger and questions if diet will be started. He denies any nausea , vomiting, diarrhea. He does report flatus. He has no other acute complaints at this time. Patient is seen this afternoon with large family visiting including , mother , father, sister, brother, [id number]. All questions were asked and answered to satisfaction of the patient and the patient's . Objective GENERAL : no acute distress EYES: No icterus, gaze conjugate NOSE: No evidence of epistaxis MOUTH: No lesions or candidiasis NECK: Supple LUNGS: CTA B/L, no wheezes, rales or rhonchi HEART: Regular, rate controlled ABDOMEN: Soft, NT, ND, BS Present. 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 (8) Multiple myeloma Neuro: * Patient presents with altered mental status and confusion * Significantly improved this afternoon * Most likely delirium from septic shock secondary to diverticulitis * Continue fluid hydration and treatment of underlying acute illness Cardiovascular * Appeared to be relative hypotension secondary to sepsis and pain meds * Restart metoprolol XL * Hypotension yesterday seemed to be related to Dilaudid -cut from 1 mg as needed to 1/2 mg as needed and monitor * No arrhythmias on telemetry * Hemodynamically stable throughout the day * Random cortisol level was 13 -received 1 dose of hydrocortisone 100 mg IV Pulmonary * COPD with emphysema on CT scan * No active pneumonia or infiltrate or pulmonary embolus on CTA of the chest * Positive for enlarged mediastinal lymphadenopathy * History of tobacco abuse * No current hypoxia * Monitor clinically Endocrine * Random cortisol 13 -received 1 dose of hydrocortisone 100 mg IV * No history of diabetes mellitus or hypothyroidism Renal * Creatinine 1.18; slightly elevated from yesterday -continue fluid hydration * Follow serial labs Electrolytes * Magnesium improved to 2.3 from 1.5 yesterday * Potassium is 3.9 * Ca+ 6.4 yesterday - now 7.6 * Follow serial labs ID * Patient seen by Dr. Salgado * Levofloxacin stopped yesterday * Continue vancomycin and Zosyn for now * Check a MRSA screening * If blood cultures and MRSA screening come back negative consider de- escalating to Zosyn only * No leukocytosis but with positive bandemia Heme * Status post 4 units of packed red blood cells since admission * Hemoglobin on admission 8.3 then dropped to 6.9 -patient received 2 units of packed red blood cells. Repeat hemoglobin was 6.6 so patient received an additional 2 units of packed red blood cells * Hemoglobin this morning had improved to 10.9 * No further indication for further transfusion * Follow serial labs * No melena or hematochezia associated with diverticulitis -continue to monitor bowel movements Multiple myeloma * Recent diagnosis with no treatment to date * Will need outpatient follow-up on discharge * No indication for oncology consult during this acute admission GI * Diverticulitis as above * Start on famotidine every 12 hours IV IV access * Peripheral IVs in place * No indication for central line at this time * No indication for an arterial line at this time DVT prophylaxis * Judicial use of chemical prophylaxis secondary to anemia and diverticulitis * Currently receiving enoxaparin 40 mg subcutaneously HS CCT: 35 minutes not inclusive of any procedures Thank you very much for including us in the care of this patient. Please refer to Dr. Lira's addendum for further recommendations I have personally evaluated and examined this patient. I agree with assessment and plan of Arcelia Pichardo/Mala surgery Dr. Lind, deferring restarting PO intake to general surgery. Data Medications: Current Inpatient Medications Medications (Trade) Dose Ordered Sig/Malik Route Start Time Stop Time Status Last Admin Dose Admin Enoxaparin Sodium (Lovenox Inj) 40 mg HS SC 09/27/17 21:30 10/27/17 21:29 09/28/17 19:41 40 MG Potassium Chloride/Sodium Chloride 1,000 ml @ 150 mls/hr Q6H40M IV 09/27/17 21:30 10/27/17 21:29 09/29/17 10:11 150 MLS/HR Ondansetron HCl (Zofran Inj) 4 mg Q6H PRN IV 09/27/17 19:45 10/27/17 19:44 Acetaminophen 100 ml @ 400 mls/hr Q8H PRN IV 09/27/17 19:45 10/27/17 19:44 09/28/17 02:22 400 MLS/HR Piperacillin Sod/ Tazobactam Sod 3.375 gm/Dextrose 115 ml @ 28.75 mls/ hr Q8H IV 09/27/17 22:00 09/29/17 21:59 09/29/17 06:50 28.75 MLS/HR Vancomycin HCl 1250 mg/Sodium Chloride 275 ml @ 125 mls/hr Q12H IV 09/27/17 22:00 09/29/17 21:59 09/29/17 10:11 125 MLS/HR Miscellaneous Information (Consult) 1 ea UD PRN N/A 09/27/17 19:45 10/27/17 19:44 Miscellaneous Information (Consult) 1 ea UD PRN N/A 09/27/17 19:45 10/27/17 19:44 Ioversol (Optiray 320) 100 ml UD PRN IV 09/27/17 20:15 10/01/17 20:14 Hydromorphone HCl (Dilaudid Inj) 0.5 mg Q4H PRN IV 09/29/17 08:30 10/13/17 08:29 Oxycodone HCl (Roxicodone Immediate Rel Tab) 10 mg Q4H PRN PO 09/29/17 08:30 10/13/17 08:29 09/29/17 10:31 10 MG Pravastatin Sodium (Pravachol Tab) 20 mg HS PO 09/29/17 21:00 10/29/17 20:59 Famotidine 20 mg/ Syringe 5 ml @ 2.5 mls/min Q12 IV 09/29/17 10:30 10/29/17 10:29 09/29/17 10:27 2.5 MLS/MIN I & O: 24-Hour Column 09/30/17 07:59 Intake Total 1575 ml Output Total 1300 ml Balance 275 ml Vital Signs: Date Time Temp Pulse Resp B/P (MAP) Pulse Ox O2 Delivery O2 Flow Rate FiO2 09/29/17 11:31 36.5 90 17 112/63 (79) 97 Nasal Cannula 2.0 09/29/17 11:30 96 17 98 09/29/17 11:26 96 2.0 09/29/17 11:02 98 14 98/64 (75) 98 09/29/17 11:00 96 14 99 09/29/17 10:31 101 15 121/75 (90) 100 09/29/17 10:30 98 13 100 09/29/17 10:01 87 13 101/68 (79) 99 09/29/17 10:00 92 17 100 09/29/17 09:31 90 15 86/68 (74) 100 09/29/17 09:30 95 26 93 09/29/17 09:29 80 19 99/69 (79) 99 09/29/17 09:01 89 15 74/60 (65) 99 09/29/17 09:01 89 15 74/60 (65) 99 09/29/17 09:00 88 14 100 09/29/17 09:00 88 14 100 09/29/17 08:31 103 24 103/65 (78) 98 09/29/17 08:30 89 19 99 09/29/17 08:01 89 25 105/67 (80) 98 09/29/17 08:00 100 19 98 09/29/17 08:00 Nasal Cannula 09/29/17 07:46 36.5 89 17 120/65 (83) 99 Nasal Cannula 2.0 09/29/17 07:40 96 2.0 09/29/17 07:31 94 20 96/62 (73) 98 09/29/17 07:30 90 13 100 09/29/17 07:16 89 20 117/73 (88) 94 09/29/17 07:01 99 19 101/65 (77) 98 09/29/17 07:00 96 21 97 09/29/17 05:46 88 20 111/64 (80) 87 Nasal Cannula 2.0 09/29/17 05:31 92 19 104/66 (79) 99 Nasal Cannula 2.0 09/29/17 05:16 86 21 111/70 (84) 98 Nasal Cannula 2.0 09/29/17 05:01 90 19 99/67 (78) 100 Nasal Cannula 2.0 09/29/17 04:46 87 20 101/65 (77) 98 Nasal Cannula 2.0 09/29/17 04:31 91 16 98/60 (73) 98 Nasal Cannula 2.0 09/29/17 04:01 36.6 95 15 108/63 (78) 97 Nasal Cannula 2.0 09/29/17 04:00 95 2.0 09/29/17 03:31 90 12 98/63 (75) 98 Nasal Cannula 2.0 09/29/17 03:01 81 20 103/62 (76) 96 Nasal Cannula 2.0 09/29/17 02:31 84 20 98/59 (72) 96 Nasal Cannula 2.0 09/29/17 02:15 85 18 94/62 97 2.0 09/29/17 02:01 83 14 99/64 (76) 99 Nasal Cannula 2.0 09/29/17 02:00 91 17 99/64 95 2.0 09/29/17 01:46 85 18 110/51 (70) 97 Nasal Cannula 2.0 09/29/17 01:45 90 17 110/51 97 2.0 09/29/17 01:31 89 13 100/63 (75) 95 Nasal Cannula 2.0 09/29/17 01:30 87 20 100/63 96 2.0 09/29/17 01:16 82 16 84/59 (67) 97 Nasal Cannula 2.0 09/29/17 01:15 81 11 84/59 95 2.0 09/29/17 01:01 89 16 103/61 (75) 95 Nasal Cannula 2.0 09/29/17 01:00 91 19 103/61 95 2.0 09/29/17 00:46 87 18 102/66 (78) 95 2.0 09/29/17 00:45 94 18 102/66 95 2.0 09/29/17 00:31 92 17 96/59 (71) 95 2.0 09/29/17 00:30 89 21 96/59 96 2.0 09/29/17 00:16 36.8 89 22 90/58 94 09/29/17 00:16 87 21 90/58 (69) 93 2.0 09/29/17 00:11 36.8 91 16 88/55 94 2.0 09/29/17 00:01 95 2.0 09/29/17 00:01 36.8 93 18 88/55 (66) 93 2.0 09/28/17 23:46 95 21 93/59 (70) 94 2.0 09/28/17 23:31 98 20 92/60 (71) 94 2.0 09/28/17 23:16 102 12 94/64 (74) 92 2.0 09/28/17 23:01 99 15 96/64 (75) 95 2.0 09/28/17 22:46 96 20 87/54 (65) 95 2.0 09/28/17 22:45 91 21 87/54 96 2.0 09/28/17 22:31 98 20 93/57 (69) 96 2.0 09/28/17 22:30 106 22 93/57 94 2.0 09/28/17 22:16 102 20 93/66 (75) 94 2.0 09/28/17 22:15 36.8 101 20 93/66 94 09/28/17 22:11 100 22 88/56 (67) 95 2.0 09/28/17 22:06 97 22 88/55 (66) 96 2.0 09/28/17 22:01 37.0 97 20 85/59 95 2.0 09/28/17 22:01 98 20 85/59 (68) 95 2.0 09/28/17 21:56 97 23 91/56 (68) 95 2.0 2/18 21:51 98 21 86/55 (65) 96 2.0 2/18 21:46 101 21 88/58 (68) 95 Nasal Cannula 2.0 2/18 21:31 97 17 91/55 (67) 97 Nasal Cannula 2.0 2/18 21:16 98 20 84/58 (67) 97 Nasal Cannula 2.0 09/28/18 21:01 96 19 90/61 (71) 96 Nasal Cannula 2.0 09/28/18 20:56 95 19 83/53 (63) 96 Nasal Cannula 2.0 09/28/18 20:51 94 21 84/52 (63) 96 Nasal Cannula 2.0 09/28/18 20:46 96 20 81/54 (63) 95 Nasal Cannula 2.0 09/28/18 20:31 93 23 81/52 (62) 95 Nasal Cannula 2.0 09/28/18 20:26 103 14 78/46 (57) 95 Nasal Cannula 2.0 18 20:26 103 14 78/46 (57) 95 25/18 20:21 96 20 82/52 (62) 91 Nasal Cannula 2.0 09/28/17 20:16 96 20 84/52 (63) 91 Nasal Cannula 2.0 18 20:11 97 20 82/51 (61) 94 Nasal Cannula 2.0 09/28/18 20:06 100 20 87/60 (69) 94 Nasal Cannula 2.0 09/28/17 20:01 37.0 94 14 75/54 (61) 94 Nasal Cannula 2.0 18 20:00 95 2.0 09/28/18 19:56 98 23 87/54 (65) 92 Nasal Cannula 2.0 09/28/18 19:51 94 21 75/53 (60) 92 Nasal Cannula 2.0 09/28/18 19:49 94 12 75/52 (60) 94 Nasal Cannula 2.0 09/28/18 19:46 99 20 80/54 (63) 95 Nasal Cannula 2.0 2/18 19:31 98 15 100/64 (76) 96 Nasal Cannula 2.0 2/18 19:16 96 24 94/62 (73) 96 Nasal Cannula 2.0 2/18 19:01 100 13 84/55 (65) 95 Nasal Cannula 2.0 09/28/17 18:00 94 19 105/50 (68) 97 Nasal Cannula 2.0 09/28/17 16:00 95 2.0 09/28/17 16:00 37.4 107 20 94/48 (63) 95 Nasal Cannula 2.0 Laboratory Results: Last 24 Hours Test 09/28/17 18:09 09/28/17 21:00 09/28/17 23:35 09/29/17 04:25 Bedside Glucose 85 mg/dl 96 mg/dl Hemoglobin 6.6 g/dL g/dL Hematocrit 19.0 % % Sodium Level 134 mmol/L Potassium Level 4.5 mmol/L Chloride Level 106 mmol/L Carbon Dioxide Level 22 mmol/L Anion Gap 6.0 mmol/L Blood Urea Nitrogen 12 mg/dl Creatinine 0.80 mg/dl Est Creatinine Clear Calc Drug Dose 104.6 ml/min Estimated GFR () 113.3 Estimated GFR (Non- 97.8 BUN/Creatinine Ratio 14.9 Random Glucose 65 mg/dl Calcium Level 6.4 mg/dl Magnesium Level 1.5 mg/dl White Blood Count K/uL Red Blood Count M/uL Mean Corpuscular Volume fL Mean Corpuscular Hemoglobin pg Mean Corpuscular Hemoglobin Concent g/dl Platelet Count K/uL Mean Platelet Volume fL Neutrophils (%) (Auto) % Lymphocytes (%) (Auto) % Monocytes (%) (Auto) % Eosinophils (%) (Auto) % Basophils (%) (Auto) % Neutrophils # (Auto) K/uL Lymphocytes # (Auto) K/uL Monocytes # (Auto) K/uL Eosinophils # (Auto) K/uL Basophils # (Auto) K/uL RDW Standard Deviation fL RDW Coefficient of Variation % Immature Granulocyte % (Auto) % Immature Granulocyte # (Auto) K/uL Nucleated RBC Absolute Count (auto) K/uL Nucleated Red Blood Cells % % Toxic Granulation Platelet Estimate Prothrombin Time SECONDS Prothromb Time International Ratio Activated Partial Thromboplast Time SECONDS Partial Thromboplastin Ratio Test 09/29/17 05:21 09/29/17 09:24 09/29/17 11:54 White Blood Count 5.38 K/uL Red Blood Count 3.49 M/uL Hemoglobin 10.9 g/dL Hematocrit 31.0 % Mean Corpuscular Volume 88.8 fL Mean Corpuscular Hemoglobin 31.2 pg Mean Corpuscular Hemoglobin Concent 35.2 g/dl Platelet Count 116 K/uL Mean Platelet Volume 8.6 fL Neutrophils (%) (Auto) 65.1 % Lymphocytes (%) (Auto) 20.8 % Monocytes (%) (Auto) 10.0 % Eosinophils (%) (Auto) 1.1 % Basophils (%) (Auto) 0.2 % Neutrophils # (Auto) 3.50 K/uL Lymphocytes # (Auto) 1.12 K/uL Monocytes # (Auto) 0.54 K/uL Eosinophils # (Auto) 0.06 K/uL Basophils # (Auto) 0.01 K/uL RDW Standard Deviation 64.6 fL RDW Coefficient of Variation 20.2 % Immature Granulocyte % (Auto) 2.8 % Immature Granulocyte # (Auto) 0.15 K/uL Anisocytosis PRESENT Prothrombin Time 12.0 SECONDS Prothromb Time International Ratio 1.1 Activated Partial Thromboplast Time 27.4 SECONDS Partial Thromboplastin Ratio 1.1 Sodium Level 134 mmol/L Potassium Level 3.9 mmol/L Chloride Level 104 mmol/L Carbon Dioxide Level 24 mmol/L Anion Gap 6.0 mmol/L Blood Urea Nitrogen 13 mg/dl Creatinine 1.18 mg/dl Est Creatinine Clear Calc Drug Dose 71.3 ml/min Estimated GFR () 77.8 Estimated GFR (Non- 67.1 BUN/Creatinine Ratio 10.8 Random Glucose 81 mg/dl Calcium Level 7.6 mg/dl Magnesium Level 2.3 mg/dl Total Bilirubin 0.9 mg/dl Direct Bilirubin 0.2 mg/dl Aspartate Amino Transf (AST/SGOT) 114 U/L Alanine Aminotransferase (ALT/SGPT) 32 U/L Alkaline Phosphatase 88 U/L Total Protein 8.0 gm/dl Albumin 2.3 gm/dl Vancomycin Level Trough 12.3 mcg/ml Bedside Glucose 88 mg/dl
--- NOTE | 2017-09-29 16:55 | Surgery Progress Note ---
Surgery Progress Note Date of Service Sep 29, 2017. Subjective + feeling well pt is doing better, no abdominal pain, passed gas, no nausea, no vomiting. Objective Vital Signs: Date Time Temp Pulse Resp B/P (MAP) Pulse Ox O2 Delivery O2 Flow Rate FiO2 09/29/17 11:31 36.5 90 17 112/63 (79) 97 Nasal Cannula 2.0 09/29/17 11:30 96 17 98 09/29/17 11:26 96 2.0 09/29/17 11:02 98 14 98/64 (75) 98 09/29/17 11:00 96 14 99 09/29/17 10:31 101 15 121/75 (90) 100 09/29/17 10:30 98 13 100 09/29/17 10:01 87 13 101/68 (79) 99 09/29/17 10:00 92 17 100 09/29/17 09:31 90 15 86/68 (74) 100 09/29/17 09:30 95 26 93 09/29/17 09:29 80 19 99/69 (79) 99 09/29/17 09:01 89 15 74/60 (65) 99 09/29/17 09:01 89 15 74/60 (65) 99 09/29/17 09:00 88 14 100 09/29/17 09:00 88 14 100 09/29/17 08:31 103 24 103/65 (78) 98 09/29/17 08:30 89 19 99 09/29/17 08:01 89 25 105/67 (80) 98 09/29/17 08:00 100 19 98 09/29/17 08:00 Nasal Cannula 09/29/17 07:46 36.5 89 17 120/65 (83) 99 Nasal Cannula 2.0 09/29/17 07:40 96 2.0 09/29/17 07:31 94 20 96/62 (73) 98 09/29/17 07:30 90 13 100 09/29/17 07:16 89 20 117/73 (88) 94 09/29/17 07:01 99 19 101/65 (77) 98 09/29/17 07:00 96 21 97 09/29/17 05:46 88 20 111/64 (80) 87 Nasal Cannula 2.0 09/29/17 05:31 92 19 104/66 (79) 99 Nasal Cannula 2.0 09/29/17 05:16 86 21 111/70 (84) 98 Nasal Cannula 2.0 09/29/17 05:01 90 19 99/67 (78) 100 Nasal Cannula 2.0 09/29/17 04:46 87 20 101/65 (77) 98 Nasal Cannula 2.0 09/29/17 04:31 91 16 98/60 (73) 98 Nasal Cannula 2.0 09/29/17 04:01 36.6 95 15 108/63 (78) 97 Nasal Cannula 2.0 09/29/17 04:00 95 2.0 09/29/17 03:31 90 12 98/63 (75) 98 Nasal Cannula 2.0 09/29/17 03:01 81 20 103/62 (76) 96 Nasal Cannula 2.0 09/29/17 02:31 84 20 98/59 (72) 96 Nasal Cannula 2.0 09/29/17 02:15 85 18 94/62 97 2.0 09/29/17 02:01 83 14 99/64 (76) 99 Nasal Cannula 2.0 09/29/17 02:00 91 17 99/64 95 2.0 09/29/17 01:46 85 18 110/51 (70) 97 Nasal Cannula 2.0 09/29/17 01:45 90 17 110/51 97 2.0 09/29/17 01:31 89 13 100/63 (75) 95 Nasal Cannula 2.0 09/29/17 01:30 87 20 100/63 96 2.0 09/29/17 01:16 82 16 84/59 (67) 97 Nasal Cannula 2.0 09/29/17 01:15 81 11 84/59 95 2.0 09/29/17 01:01 89 16 103/61 (75) 95 Nasal Cannula 2.0 09/29/17 01:00 91 19 103/61 95 2.0 09/29/17 00:46 87 18 102/66 (78) 95 2.0 09/29/17 00:45 94 18 102/66 95 2.0 09/29/17 00:31 92 17 96/59 (71) 95 2.0 09/29/17 00:30 89 21 96/59 96 2.0 09/29/17 00:16 36.8 89 22 90/58 94 2/26/18 00:16 87 21 90/58 (69) 93 2.0 218 00:11 36.8 91 16 88/55 94 2.0 18 00:01 95 2.0 18 00:01 36.8 93 18 88/55 (66) 93 2.0 09/28/17 23:46 95 21 93/59 (70) 94 2.0 09/28/17 23:31 98 20 92/60 (71) 94 2.0 09/28/17 23:16 102 12 94/64 (74) 92 2.0 09/28/17 23:01 99 15 96/64 (75) 95 2.0 09/28/17 22:46 96 20 87/54 (65) 95 2.0 09/28/17 22:45 91 21 87/54 96 2.0 09/28/17 22:31 98 20 93/57 (69) 96 2.0 09/28/17 22:30 106 22 93/57 94 2.0 09/28/17 22:16 102 20 93/66 (75) 94 2.0 09/28/17 22:15 36.8 101 20 93/66 94 09/28/17 22:11 100 22 88/56 (67) 95 2.0 09/28/17 22:06 97 22 88/55 (66) 96 2.0 09/28/17 22:01 37.0 97 20 85/59 95 2.0 09/28/17 22:01 98 20 85/59 (68) 95 2.0 09/28/17 21:56 97 23 91/56 (68) 95 2.0 09/28/17 21:51 98 21 86/55 (65) 96 2.0 18 21:46 101 21 88/58 (68) 95 Nasal Cannula 2.0 09/28/17 21:31 97 17 91/55 (67) 97 Nasal Cannula 2.0 09/28/17 21:16 98 20 84/58 (67) 97 Nasal Cannula 2.0 09/28/17 21:01 96 19 90/61 (71) 96 Nasal Cannula 2.0 09/28/17 20:56 95 19 83/53 (63) 96 Nasal Cannula 2.0 09/28/17 20:51 94 21 84/52 (63) 96 Nasal Cannula 2.0 09/28/17 20:46 96 20 81/54 (63) 95 Nasal Cannula 2.0 09/28/17 20:31 93 23 81/52 (62) 95 Nasal Cannula 2.0 09/28/17 20:26 103 14 78/46 (57) 95 Nasal Cannula 2.0 09/28/17 20:26 103 14 78/46 (57) 95 09/28/17 20:21 96 20 82/52 (62) 91 Nasal Cannula 2.0 09/28/17 20:16 96 20 84/52 (63) 91 Nasal Cannula 2.0 09/28/17 20:11 97 20 82/51 (61) 94 Nasal Cannula 2.0 09/28/17 20:06 100 20 87/60 (69) 94 Nasal Cannula 2.0 09/28/17 20:01 37.0 94 14 75/54 (61) 94 Nasal Cannula 2.0 09/28/17 20:00 95 2.0 09/28/17 19:56 98 23 87/54 (65) 92 Nasal Cannula 2.0 09/28/17 19:51 94 21 75/53 (60) 92 Nasal Cannula 2.0 09/28/17 19:49 94 12 75/52 (60) 94 Nasal Cannula 2.0 09/28/17 19:46 99 20 80/54 (63) 95 Nasal Cannula 2.0 09/28/17 19:31 98 15 100/64 (76) 96 Nasal Cannula 2.0 09/28/17 19:16 96 24 94/62 (73) 96 Nasal Cannula 2.0 09/28/17 19:01 100 13 84/55 (65) 95 Nasal Cannula 2.0 09/28/17 18:00 94 19 105/50 (68) 97 Nasal Cannula 2.0 General Appearance: WD/WN, no apparent distress Head: normocephalic Neck: supple, no JVD Respiratory/Chest: chest non-tender, lungs clear Cardiovascular: regular rate, rhythm, no edema, no gallop, no JVD Abdomen: normal bowel sounds, non tender, non distended, soft, no organomegaly Extremities: normal range of motion, non-tender, normal inspection Laboratory Results: Results Past 24 Hours Test 09/28/17 18:09 09/28/17 21:00 09/28/17 23:35 09/29/17 04:25 Range/Units Bedside Glucose 85 96 70-99 mg/dl Hemoglobin 6.6 14.0-18.0 g/dL Hematocrit 19.0 42-52 % Sodium Level 134 136-145 mmol/L Potassium Level 4.5 3.5-5.1 mmol/L Chloride Level 106 98-107 mmol/L Carbon Dioxide Level 22 21-32 mmol/L Anion Gap 6.0 3-11 mmol/L Blood Urea Nitrogen 12 7-18 mg/dl Creatinine 0.80 0.60-1.40 mg/dl Est Creatinine Clear Calc Drug Dose 104.6 ml/min Estimated GFR () 113.3 Estimated GFR (Non- 97.8 BUN/Creatinine Ratio 14.9 10-20 Random Glucose 65 70-99 mg/dl Calcium Level 6.4 8.5-10.1 mg/dl Magnesium Level 1.5 1.8-2.4 mg/dl White Blood Count 4.8-10.8 K/uL Red Blood Count 4.7-6.1 M/uL Mean Corpuscular Volume 80-100 fL Mean Corpuscular Hemoglobin 25-34 pg Mean Corpuscular Hemoglobin Concent 32-36 g/dl Platelet Count 130-400 K/uL Mean Platelet Volume 7.4-10.4 fL Neutrophils (%) (Auto) % Lymphocytes (%) (Auto) % Monocytes (%) (Auto) % Eosinophils (%) (Auto) % Basophils (%) (Auto) % Neutrophils # (Auto) 1.4-6.5 K/uL Lymphocytes # (Auto) 1.2-3.4 K/uL Monocytes # (Auto) 0.11-0.59 K/uL Eosinophils # (Auto) 0-0.5 K/uL Basophils # (Auto) 0-0.2 K/uL RDW Standard Deviation 36.4-46.3 fL RDW Coefficient of Variation 11.5-14.5 % Immature Granulocyte % (Auto) % Immature Granulocyte # (Auto) 0.00-0.02 K/uL Nucleated RBC Absolute Count (auto) 0-0 K/uL Nucleated Red Blood Cells % % Toxic Granulation Platelet Estimate Prothrombin Time 9.0-12.0 SECONDS Prothromb Time International Ratio 0.9-1.1 Activated Partial Thromboplast Time 21.0-31.0 SECONDS Partial Thromboplastin Ratio Test 09/29/17 05:21 09/29/17 09:24 09/29/17 11:54 Range/Units White Blood Count 5.38 4.8-10.8 K/uL Red Blood Count 3.49 4.7-6.1 M/uL Hemoglobin 10.9 14.0-18.0 g/dL Hematocrit 31.0 42-52 % Mean Corpuscular Volume 88.8 80-100 fL Mean Corpuscular Hemoglobin 31.2 25-34 pg Mean Corpuscular Hemoglobin Concent 35.2 32-36 g/dl Platelet Count 116 130-400 K/uL Mean Platelet Volume 8.6 7.4-10.4 fL Neutrophils (%) (Auto) 65.1 % Lymphocytes (%) (Auto) 20.8 % Monocytes (%) (Auto) 10.0 % Eosinophils (%) (Auto) 1.1 % Basophils (%) (Auto) 0.2 % Neutrophils # (Auto) 3.50 1.4-6.5 K/uL Lymphocytes # (Auto) 1.12 1.2-3.4 K/uL Monocytes # (Auto) 0.54 0.11-0.59 K/uL Eosinophils # (Auto) 0.06 0-0.5 K/uL Basophils # (Auto) 0.01 0-0.2 K/uL RDW Standard Deviation 64.6 36.4-46.3 fL RDW Coefficient of Variation 20.2 11.5-14.5 % Immature Granulocyte % (Auto) 2.8 % Immature Granulocyte # (Auto) 0.15 0.00-0.02 K/uL Anisocytosis PRESENT Prothrombin Time 12.0 9.0-12.0 SECONDS Prothromb Time International Ratio 1.1 0.9-1.1 Activated Partial Thromboplast Time 27.4 21.0-31.0 SECONDS Partial Thromboplastin Ratio 1.1 Sodium Level 134 136-145 mmol/L Potassium Level 3.9 3.5-5.1 mmol/L Chloride Level 104 98-107 mmol/L Carbon Dioxide Level 24 21-32 mmol/L Anion Gap 6.0 3-11 mmol/L Blood Urea Nitrogen 13 7-18 mg/dl Creatinine 1.18 0.60-1.40 mg/dl Est Creatinine Clear Calc Drug Dose 71.3 ml/min Estimated GFR () 77.8 Estimated GFR (Non- 67.1 BUN/Creatinine Ratio 10.8 10-20 Random Glucose 81 70-99 mg/dl Calcium Level 7.6 8.5-10.1 mg/dl Magnesium Level 2.3 1.8-2.4 mg/dl Total Bilirubin 0.9 0.2-1 mg/dl Direct Bilirubin 0.2 0-0.2 mg/dl Aspartate Amino Transf (AST/SGOT) 114 15-37 U/L Alanine Aminotransferase (ALT/SGPT) 32 12-78 U/L Alkaline Phosphatase 88 45-117 U/L Total Protein 8.0 6.4-8.2 gm/dl Albumin 2.3 3.4-5.0 gm/dl Vancomycin Level Trough 12.3 SEE COMMENT mcg/ml Bedside Glucose 88 70-99 mg/dl Assessment & Plan pt is doing better, continue treatment, will F/U
--- NOTE | 2017-09-29 20:44 | Infectious Disease Progress Nt ---
Progress Note Date of Service Sep 29, 2017. Subjective Pt evaluation today including: conversation w/ patient, conversation w/ family , physical exam, chart review, lab review, review of studies, conversation w/ sap ppm consultant, review of inpatient medication list Had abdominal pain earlier, now improved. Mental status slowly improving. Remains afebrile. All Other Systems: Reviewed and Negative Medications Current Inpatient Medications Medications (Trade) Dose Ordered Sig/Malik Route Start Time Stop Time Status Last Admin Dose Admin Enoxaparin Sodium (Lovenox Inj) 40 mg HS SC 09/27/17 21:30 10/27/17 21:29 09/28/17 19:41 40 MG Potassium Chloride/Sodium Chloride 1,000 ml @ 150 mls/hr Q6H40M IV 09/27/17 21:30 10/27/17 21:29 09/29/17 17:07 150 MLS/HR Ondansetron HCl (Zofran Inj) 4 mg Q6H PRN IV 09/27/17 19:45 10/27/17 19:44 Acetaminophen 100 ml @ 400 mls/hr Q8H PRN IV 09/27/17 19:45 10/27/17 19:44 09/28/17 02:22 400 MLS/HR Piperacillin Sod/ Tazobactam Sod 3.375 gm/Dextrose 115 ml @ 28.75 mls/ hr Q8H IV 09/27/17 22:00 09/29/17 21:59 09/29/17 15:26 28.75 MLS/HR Vancomycin HCl 1250 mg/Sodium Chloride 275 ml @ 125 mls/hr Q12H IV 09/27/17 22:00 09/29/17 21:59 09/29/17 10:11 125 MLS/HR Miscellaneous Information (Consult) 1 ea UD PRN N/A 09/27/17 19:45 09/29/17 21:59 Miscellaneous Information (Consult) 1 ea UD PRN N/A 09/27/17 19:45 09/29/17 21:59 Ioversol (Optiray 320) 100 ml UD PRN IV 09/27/17 20:15 10/01/17 20:14 Hydromorphone HCl (Dilaudid Inj) 0.5 mg Q4H PRN IV 09/29/17 08:30 10/13/17 08:29 Oxycodone HCl (Roxicodone Immediate Rel Tab) 10 mg Q4H PRN PO 09/29/17 08:30 10/13/17 08:29 09/29/17 10:31 10 MG Pravastatin Sodium (Pravachol Tab) 20 mg HS PO 09/29/17 21:00 10/29/17 20:59 Famotidine 20 mg/ Syringe 5 ml @ 2.5 mls/min Q12 IV 09/29/17 10:30 10/29/17 10:29 09/29/17 10:27 2.5 MLS/MIN Objective Vital Signs Date Time Temp Pulse Resp B/P (MAP) Pulse Ox O2 Delivery O2 Flow Rate FiO2 09/29/17 19:01 87 21 100/63 (75) 98 09/29/17 19:00 83 19 97 09/29/17 18:31 78 23 107/68 (81) 97 09/29/17 18:30 81 22 97 09/29/17 18:01 80 21 96/63 (74) 98 09/29/17 18:00 77 24 98 09/29/17 17:31 82 20 97/62 (74) 100 09/29/17 17:30 86 15 99 09/29/17 17:01 85 25 111/70 (84) 96 09/29/17 17:00 83 28 97 09/29/17 16:30 90 22 100 09/29/17 16:01 36.7 82 21 102/69 (80) 93 Nasal Cannula 2.0 09/29/17 16:00 88 16 98 09/29/17 16:00 99 2.0 09/29/17 15:31 108 21 114/91 (99) 96 09/29/17 15:30 90 22 100 09/29/17 15:01 85 29 120/75 (90) 98 09/29/17 15:00 79 22 98 09/29/17 14:31 86 18 110/81 (91) 99 09/29/17 14:30 89 18 98 09/29/17 14:01 93 18 109/75 (86) 97 Nasal Cannula 2.0 09/29/17 14:00 94 24 97 09/29/17 13:31 97 19 105/76 (86) 98 09/29/17 13:30 91 25 98 09/29/17 13:01 100 20 105/77 (86) 97 09/29/17 13:00 94 17 97 09/29/17 12:31 95 19 111/74 (86) 97 09/29/17 12:30 99 24 97 09/29/17 12:02 98 19 92/66 (75) 98 09/29/17 12:00 114 14 94 09/29/17 11:31 36.5 90 17 112/63 (79) 97 Nasal Cannula 2.0 09/29/17 11:30 96 17 98 09/29/17 11:26 96 2.0 09/29/17 11:02 98 14 98/64 (75) 98 09/29/17 11:00 96 14 99 09/29/17 10:31 101 15 121/75 (90) 100 09/29/17 10:30 98 13 100 09/29/17 10:01 87 13 101/68 (79) 99 09/29/17 10:00 92 17 100 09/29/17 09:31 90 15 86/68 (74) 100 09/29/17 09:30 95 26 93 09/29/17 09:29 80 19 99/69 (79) 99 09/29/17 09:01 89 15 74/60 (65) 99 09/29/17 09:01 89 15 74/60 (65) 99 09/29/17 09:00 88 14 100 09/29/17 09:00 88 14 100 09/29/17 08:31 103 24 103/65 (78) 98 09/29/17 08:30 89 19 99 09/29/17 08:01 89 25 105/67 (80) 98 09/29/17 08:00 100 19 98 09/29/17 08:00 Nasal Cannula 09/29/17 07:46 36.5 89 17 120/65 (83) 99 Nasal Cannula 2.0 09/29/17 07:40 96 2.0 09/29/17 07:31 94 20 96/62 (73) 98 09/29/17 07:30 90 13 100 09/29/17 07:16 89 20 117/73 (88) 94 09/29/17 07:01 99 19 101/65 (77) 98 09/29/17 07:00 96 21 97 09/29/17 05:46 88 20 111/64 (80) 87 Nasal Cannula 2.0 09/29/17 05:31 92 19 104/66 (79) 99 Nasal Cannula 2.0 09/29/17 05:16 86 21 111/70 (84) 98 Nasal Cannula 2.0 09/29/17 05:01 90 19 99/67 (78) 100 Nasal Cannula 2.0 09/29/17 04:46 87 20 101/65 (77) 98 Nasal Cannula 2.0 09/29/17 04:31 91 16 98/60 (73) 98 Nasal Cannula 2.0 09/29/17 04:01 36.6 95 15 108/63 (78) 97 Nasal Cannula 2.0 09/29/17 04:00 95 2.0 09/29/17 03:31 90 12 98/63 (75) 98 Nasal Cannula 2.0 09/29/17 03:01 81 20 103/62 (76) 96 Nasal Cannula 2.0 09/29/17 02:31 84 20 98/59 (72) 96 Nasal Cannula 2.0 09/29/17 02:15 85 18 94/62 97 2.0 09/29/17 02:01 83 14 99/64 (76) 99 Nasal Cannula 2.0 09/29/17 02:00 91 17 99/64 95 2.0 09/29/17 01:46 85 18 110/51 (70) 97 Nasal Cannula 2.0 09/29/17 01:45 90 17 110/51 97 2.0 09/29/17 01:31 89 13 100/63 (75) 95 Nasal Cannula 2.0 09/29/17 01:30 87 20 100/63 96 2.0 09/29/17 01:16 82 16 84/59 (67) 97 Nasal Cannula 2.0 09/29/17 01:15 81 11 84/59 95 2.0 09/29/17 01:01 89 16 103/61 (75) 95 Nasal Cannula 2.0 09/29/17 01:00 91 19 103/61 95 2.0 09/29/17 00:46 87 18 102/66 (78) 95 2.0 09/29/17 00:45 94 18 102/66 95 2.0 09/29/17 00:31 92 17 96/59 (71) 95 2.0 09/29/17 00:30 89 21 96/59 96 2.0 09/29/17 00:16 36.8 89 22 90/58 94 18 00:16 87 21 90/58 (69) 93 2.0 09/29/17 00:11 36.8 91 16 88/55 94 2.0 09/29/17 00:01 95 2.0 09/29/17 00:01 36.8 93 18 88/55 (66) 93 2.0 09/28/17 23:46 95 21 93/59 (70) 94 2.0 09/28/17 23:31 98 20 92/60 (71) 94 2.0 09/28/17 23:16 102 12 94/64 (74) 92 2.0 09/28/17 23:01 99 15 96/64 (75) 95 2.0 09/28/17 22:46 96 20 87/54 (65) 95 2.0 09/28/17 22:45 91 21 87/54 96 2.0 09/28/17 22:31 98 20 93/57 (69) 96 2.0 09/28/17 22:30 106 22 93/57 94 2.0 09/28/17 22:16 102 20 93/66 (75) 94 2.0 09/28/17 22:15 36.8 101 20 93/66 94 09/28/17 22:11 100 22 88/56 (67) 95 2.0 09/28/17 22:06 97 22 88/55 (66) 96 2.0 09/28/17 22:01 37.0 97 20 85/59 95 2.0 09/28/17 22:01 98 20 85/59 (68) 95 2.0 09/28/17 21:56 97 23 91/56 (68) 95 2.0 09/28/17 21:51 98 21 86/55 (65) 96 2.0 09/28/17 21:46 101 21 88/58 (68) 95 Nasal Cannula 2.0 09/28/17 21:31 97 17 91/55 (67) 97 Nasal Cannula 2.0 09/28/17 21:16 98 20 84/58 (67) 97 Nasal Cannula 2.0 09/28/17 21:01 96 19 90/61 (71) 96 Nasal Cannula 2.0 2/25/18 20:56 95 19 83/53 (63) 96 Nasal Cannula 2.0 09/28/17 20:51 94 21 84/52 (63) 96 Nasal Cannula 2.0 09/28/17 20:46 96 20 81/54 (63) 95 Nasal Cannula 2.0 Physical Exam General Appearance: WD/WN, no apparent distress Eyes: normal inspection, EOMI, sclerae normal ENT: normal ENT inspection, hearing grossly normal, pharynx normal Neck: supple, no adenopathy, thyroid normal, trachea midline Respiratory/Chest: chest non-tender, lungs clear, normal breath sounds, no respiratory distress Cardiovascular: regular rate, rhythm, no gallop, no murmur Abdomen: normal bowel sounds, soft, no organomegaly, + tenderness Extremities: non-tender, no calf tenderness, normal capillary refill Neurologic/Psychiatric: alert, oriented x 3 Skin: normal color, warm/dry, no rash Laboratory Results Last 24 Hours Test 09/28/17 21:00 09/28/17 23:35 09/29/17 04:25 09/29/17 05:21 Hemoglobin 6.6 g/dL g/dL 10.9 g/dL Hematocrit 19.0 % % 31.0 % Sodium Level 134 mmol/L 134 mmol/L Potassium Level 4.5 mmol/L 3.9 mmol/L Chloride Level 106 mmol/L 104 mmol/L Carbon Dioxide Level 22 mmol/L 24 mmol/L Anion Gap 6.0 mmol/L 6.0 mmol/L Blood Urea Nitrogen 12 mg/dl 13 mg/dl Creatinine 0.80 mg/dl 1.18 mg/dl Est Creatinine Clear Calc Drug Dose 104.6 ml/min 71.3 ml/min Estimated GFR () 113.3 77.8 Estimated GFR (Non- 97.8 67.1 BUN/Creatinine Ratio 14.9 10.8 Random Glucose 65 mg/dl 81 mg/dl Calcium Level 6.4 mg/dl 7.6 mg/dl Magnesium Level 1.5 mg/dl 2.3 mg/dl Bedside Glucose 96 mg/dl White Blood Count K/uL 5.38 K/uL Red Blood Count M/uL 3.49 M/uL Mean Corpuscular Volume fL 88.8 fL Mean Corpuscular Hemoglobin pg 31.2 pg Mean Corpuscular Hemoglobin Concent g/dl 35.2 g/dl Platelet Count K/uL 116 K/uL Mean Platelet Volume fL 8.6 fL Neutrophils (%) (Auto) % 65.1 % Lymphocytes (%) (Auto) % 20.8 % Monocytes (%) (Auto) % 10.0 % Eosinophils (%) (Auto) % 1.1 % Basophils (%) (Auto) % 0.2 % Neutrophils # (Auto) K/uL 3.50 K/uL Lymphocytes # (Auto) K/uL 1.12 K/uL Monocytes # (Auto) K/uL 0.54 K/uL Eosinophils # (Auto) K/uL 0.06 K/uL Basophils # (Auto) K/uL 0.01 K/uL RDW Standard Deviation fL 64.6 fL RDW Coefficient of Variation % 20.2 % Immature Granulocyte % (Auto) % 2.8 % Immature Granulocyte # (Auto) K/uL 0.15 K/uL Nucleated RBC Absolute Count (auto) K/uL Nucleated Red Blood Cells % % Toxic Granulation Platelet Estimate Prothrombin Time SECONDS 12.0 SECONDS Prothromb Time International Ratio 1.1 Activated Partial Thromboplast Time SECONDS 27.4 SECONDS Partial Thromboplastin Ratio 1.1 Anisocytosis PRESENT Total Bilirubin 0.9 mg/dl Direct Bilirubin 0.2 mg/dl Aspartate Amino Transf (AST/SGOT) 114 U/L Alanine Aminotransferase (ALT/SGPT) 32 U/L Alkaline Phosphatase 88 U/L Total Protein 8.0 gm/dl Albumin 2.3 gm/dl Test 09/29/17 09:24 09/29/17 11:54 Vancomycin Level Trough 12.3 mcg/ml Bedside Glucose 88 mg/dl Assessment and Plan (1) Acute diverticulitis (2) Septic shock (3) Peripheral arterial disease (4) Tobacco abuse (5) Recent spinal surgery (6) Hypertension (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 Patient should be continued on IV vancomycin and Zosyn pending further culture results. See no need for urgent surgical intervention at present time. Length of IV antibiotics will be determined by clinical response. Case discussed in detail with patient's and family. Will follow.
[2017-09-29] MEDS: PRAVASTATIN SOD 20 MG TAB PO SCH (21:26)
[2017-09-29] MEDS: ENOXAPARIN 40 MG/0.4 ML SYR SC SCH (21:27)
[2017-09-29] MEDS: ACETAMINOPHEN IV 100 ML IV PRN (21:40)
--- NOTE | 2017-09-29 22:06 | Progress Note ---
Subjective Date of Service: Sep 29, 2017. Subjective Pt evaluation today including: conversation w/ patient, conversation w/ family ( at bedside), physical exam, chart review, lab review, review of studies ( echo), conversation w/ weight loss sales consultant (ICU attending) Pain: back, abdomen - latter improved PO Intake: npo Voiding: cruz catheter in place events of last 24 hours noted he feels better today more oriented and alert today family pleased with how he looks fevers improved no vomiting back pain is at baseline Problem List Medical Problems: (1) Dehydration Status: Acute (2) Rib pain on right side Status: Acute Review of Systems Constitutional: + fatigue, No fever, No chills Respiratory: + cough, No dyspnea at rest Cardiac: No chest pain Abdomen: + pain (lower quadrants), No nausea, No vomiting Objective Vital Signs Date Time Temp Pulse Resp B/P (MAP) Pulse Ox O2 Delivery O2 Flow Rate FiO2 09/29/17 19:01 87 21 100/63 (75) 98 09/29/17 19:00 83 19 97 09/29/17 18:31 78 23 107/68 (81) 97 09/29/17 18:30 81 22 97 09/29/17 18:01 80 21 96/63 (74) 98 09/29/17 18:00 77 24 98 09/29/17 17:31 82 20 97/62 (74) 100 09/29/17 17:30 86 15 99 09/29/17 17:01 85 25 111/70 (84) 96 09/29/17 17:00 83 28 97 09/29/17 16:30 90 22 100 09/29/17 16:01 36.7 82 21 102/69 (80) 93 Nasal Cannula 2.0 09/29/17 16:00 88 16 98 09/29/17 16:00 99 2.0 09/29/17 15:31 108 21 114/91 (99) 96 09/29/17 15:30 90 22 100 09/29/17 15:01 85 29 120/75 (90) 98 09/29/17 15:00 79 22 98 09/29/17 14:31 86 18 110/81 (91) 99 09/29/17 14:30 89 18 98 09/29/17 14:01 93 18 109/75 (86) 97 Nasal Cannula 2.0 09/29/17 14:00 94 24 97 09/29/17 13:31 97 19 105/76 (86) 98 09/29/17 13:30 91 25 98 09/29/17 13:01 100 20 105/77 (86) 97 09/29/17 13:00 94 17 97 09/29/17 12:31 95 19 111/74 (86) 97 09/29/17 12:30 99 24 97 09/29/17 12:02 98 19 92/66 (75) 98 09/29/17 12:00 114 14 94 09/29/17 11:31 36.5 90 17 112/63 (79) 97 Nasal Cannula 2.0 09/29/17 11:30 96 17 98 09/29/17 11:26 96 2.0 09/29/17 11:02 98 14 98/64 (75) 98 09/29/17 11:00 96 14 99 09/29/17 10:31 101 15 121/75 (90) 100 09/29/17 10:30 98 13 100 09/29/17 10:01 87 13 101/68 (79) 99 09/29/17 10:00 92 17 100 09/29/17 09:31 90 15 86/68 (74) 100 09/29/17 09:30 95 26 93 09/29/17 09:29 80 19 99/69 (79) 99 09/29/17 09:01 89 15 74/60 (65) 99 09/29/17 09:01 89 15 74/60 (65) 99 09/29/17 09:00 88 14 100 09/29/17 09:00 88 14 100 09/29/17 08:31 103 24 103/65 (78) 98 09/29/17 08:30 89 19 99 09/29/17 08:01 89 25 105/67 (80) 98 09/29/17 08:00 100 19 98 09/29/17 08:00 Nasal Cannula 09/29/17 07:46 36.5 89 17 120/65 (83) 99 Nasal Cannula 2.0 09/29/17 07:40 96 2.0 09/29/17 07:31 94 20 96/62 (73) 98 09/29/17 07:30 90 13 100 09/29/17 07:16 89 20 117/73 (88) 94 2/26/18 07:01 99 19 101/65 (77) 98 09/29/17 07:00 96 21 97 09/29/17 05:46 88 20 111/64 (80) 87 Nasal Cannula 2.0 09/29/17 05:31 92 19 104/66 (79) 99 Nasal Cannula 2.0 09/29/17 05:16 86 21 111/70 (84) 98 Nasal Cannula 2.0 09/29/17 05:01 90 19 99/67 (78) 100 Nasal Cannula 2.0 09/29/17 04:46 87 20 101/65 (77) 98 Nasal Cannula 2.0 09/29/17 04:31 91 16 98/60 (73) 98 Nasal Cannula 2.0 09/29/17 04:01 36.6 95 15 108/63 (78) 97 Nasal Cannula 2.0 09/29/17 04:00 95 2.0 09/29/17 03:31 90 12 98/63 (75) 98 Nasal Cannula 2.0 09/29/17 03:01 81 20 103/62 (76) 96 Nasal Cannula 2.0 09/29/17 02:31 84 20 98/59 (72) 96 Nasal Cannula 2.0 09/29/17 02:15 85 18 94/62 97 2.0 09/29/17 02:01 83 14 99/64 (76) 99 Nasal Cannula 2.0 09/29/17 02:00 91 17 99/64 95 2.0 09/29/17 01:46 85 18 110/51 (70) 97 Nasal Cannula 2.0 09/29/17 01:45 90 17 110/51 97 2.0 09/29/17 01:31 89 13 100/63 (75) 95 Nasal Cannula 2.0 09/29/17 01:30 87 20 100/63 96 2.0 09/29/17 01:16 82 16 84/59 (67) 97 Nasal Cannula 2.0 09/29/17 01:15 81 11 84/59 95 2.0 09/29/17 01:01 89 16 103/61 (75) 95 Nasal Cannula 2.0 09/29/17 01:00 91 19 103/61 95 2.0 09/29/17 00:46 87 18 102/66 (78) 95 2.0 09/29/17 00:45 94 18 102/66 95 2.0 09/29/17 00:31 92 17 96/59 (71) 95 2.0 09/29/17 00:30 89 21 96/59 96 2.0 09/29/17 00:16 36.8 89 22 90/58 94 09/29/17 00:16 87 21 90/58 (69) 93 2.0 09/29/17 00:11 36.8 91 16 88/55 94 2.0 09/29/17 00:01 95 2.0 09/29/17 00:01 36.8 93 18 88/55 (66) 93 2.0 09/28/17 23:46 95 21 93/59 (70) 94 2.0 09/28/17 23:31 98 20 92/60 (71) 94 2.0 09/28/17 23:16 102 12 94/64 (74) 92 2.0 09/28/17 23:01 99 15 96/64 (75) 95 2.0 09/28/17 22:46 96 20 87/54 (65) 95 2.0 09/28/17 22:45 91 21 87/54 96 2.0 09/28/17 22:31 98 20 93/57 (69) 96 2.0 09/28/17 22:30 106 22 93/57 94 2.0 09/28/17 22:16 102 20 93/66 (75) 94 2.0 09/28/17 22:15 36.8 101 20 93/66 94 09/28/17 22:11 100 22 88/56 (67) 95 2.0 09/28/17 22:06 97 22 88/55 (66) 96 2.0 09/28/17 22:01 37.0 97 20 85/59 95 2.0 09/28/17 22:01 98 20 85/59 (68) 95 2.0 Physical Exam General Appearance: no apparent distress, + pertinent finding (looks much better today) ENT: pharynx normal (MMM) Neck: no JVD Respiratory/Chest: no respiratory distress, no accessory muscle use, + decreased breath sounds (bases) Cardiovascular: regular rate, rhythm, no gallop, + systolic murmur (1/6 LLSB) Abdomen: normal bowel sounds, soft, no organomegaly, + tenderness (suprapubic region, LLQ - very mild ) Extremities: no pedal edema, + pertinent finding (pulses improved today) Neurologic/Psychiatric: alert, oriented x 3 Skin: + pertinent finding (incision over thoracic spine clean, no drainage, no redness ) Laboratory Results Last 24 Hours Test 09/28/17 23:35 09/29/17 04:25 09/29/17 05:21 09/29/17 09:24 Bedside Glucose 96 mg/dl White Blood Count K/uL 5.38 K/uL Red Blood Count M/uL 3.49 M/uL Hemoglobin g/dL 10.9 g/dL Hematocrit % 31.0 % Mean Corpuscular Volume fL 88.8 fL Mean Corpuscular Hemoglobin pg 31.2 pg Mean Corpuscular Hemoglobin Concent g/dl 35.2 g/dl Platelet Count K/uL 116 K/uL Mean Platelet Volume fL 8.6 fL Neutrophils (%) (Auto) % 65.1 % Lymphocytes (%) (Auto) % 20.8 % Monocytes (%) (Auto) % 10.0 % Eosinophils (%) (Auto) % 1.1 % Basophils (%) (Auto) % 0.2 % Neutrophils # (Auto) K/uL 3.50 K/uL Lymphocytes # (Auto) K/uL 1.12 K/uL Monocytes # (Auto) K/uL 0.54 K/uL Eosinophils # (Auto) K/uL 0.06 K/uL Basophils # (Auto) K/uL 0.01 K/uL RDW Standard Deviation fL 64.6 fL RDW Coefficient of Variation % 20.2 % Immature Granulocyte % (Auto) % 2.8 % Immature Granulocyte # (Auto) K/uL 0.15 K/uL Nucleated RBC Absolute Count (auto) K/uL Nucleated Red Blood Cells % % Toxic Granulation Platelet Estimate Prothrombin Time SECONDS 12.0 SECONDS Prothromb Time International Ratio 1.1 Activated Partial Thromboplast Time SECONDS 27.4 SECONDS Partial Thromboplastin Ratio 1.1 Anisocytosis PRESENT Sodium Level 134 mmol/L Potassium Level 3.9 mmol/L Chloride Level 104 mmol/L Carbon Dioxide Level 24 mmol/L Anion Gap 6.0 mmol/L Blood Urea Nitrogen 13 mg/dl Creatinine 1.18 mg/dl Est Creatinine Clear Calc Drug Dose 71.3 ml/min Estimated GFR () 77.8 Estimated GFR (Non- 67.1 BUN/Creatinine Ratio 10.8 Random Glucose 81 mg/dl Calcium Level 7.6 mg/dl Magnesium Level 2.3 mg/dl Total Bilirubin 0.9 mg/dl Direct Bilirubin 0.2 mg/dl Aspartate Amino Transf (AST/SGOT) 114 U/L Alanine Aminotransferase (ALT/SGPT) 32 U/L Alkaline Phosphatase 88 U/L Total Protein 8.0 gm/dl Albumin 2.3 gm/dl Vancomycin Level Trough 12.3 mcg/ml Test 09/29/17 11:54 09/29/17 18:14 09/29/17 21:14 Bedside Glucose 88 mg/dl 112 mg/dl 113 mg/dl Assessment and Plan 57yo male with: 1. shock - likely septic - due to acute sigmoid diverticulitis? Much improved today with normal BPs and no fever. He looks/feels better. He has mild LV dysfunction on echo but there is no evidence of cardiogenic shock. Blood/urine cx's pending but thus far negative. U/a unremarkable. Prostate exam showed BPH but no prostatitis. Flu negative. Cont broad-spectrum IV abx (zosyn, vanco). ID is following. If he were to spike fevers again, have worsening back pain, etc would have low threshold for re-imaging his spine given the recent surgery at [facility]. 2. acute sigmoid diverticulitis - clinically improved with less abdominal pain today. Gen surg following; defer diet to gen surg/critical care team. 3. metabolic encephalopathy - 2nd to #1 - markedly improved today. CT head w/o acute findings. 4. anemia - Hb was 10.1 prior to transfer to [facility] 10 days ago. The acute drop to the 6's likely represented copious phlebotomy, bone marrow suppression from infection, and recent blood loss from surgery. He is s/p 4 units of PRBCs this admission with stable H/H today. Hemoccult was negative at admission. 5. severe protein calorie malnutrition - albumin is <2. Will address once acute issues are resolved. 6. multiple myeloma - lytic lesions are seen diffusely on all imaging studies c /w multiple myeloma. Heme/onc consultation appreciated. Daily CBC. 7. DVT proph - lovenox. 8. hyponatremia - due to volume depletion/dehydration. Improved with hydration. 9. recent acute otitis media - resolved. 10. FEN - cont IVF but cautiously in light of depressed LV function; diet management per gen surg/ICU staff; lytes stable. 11. systolic CHF - EF 45% - appears to have ischemic cardiomyopathy with wall motion abnormalities. Ultimately will need BB, FATOUMATA, etc. Difficult to say how chronic this is. Fortunately he is compensated from a CHF standpoint today. family updated nice improvement overnight would obtain PT, OT tomorrow Continued [facility] stay due to: abnormal vital signs, inadequate po fluid intake, inadequate oral pain control, voiding difficulties, ambulation difficulties, multiple IV medications needed Discharge planning: uncertain
[2017-09-30] VITALS (11 sets, daily range): BP systolic 94–134; BP diastolic 61–78; PULSE 75–93; TEMP 36.4–36.6; O2SAT 95–98
[2017-09-30] MEDS: NSS + 20MEQ KCL 1000ML 1,000 ML IV SCH ×4 (00:27→22:11)
[2017-09-30] MEDS: OXYCODONE HCL IR 5 MG TAB (IMMEDIATE RELEASE) PO PRN ×2 (05:14→20:38)
[2017-09-30 06:15] LABS: BASO % 0.2 %; BASO ABS # 0.01 K/uL (0-0.2); EOS % 0.7 %; EOS ABS # 0.04 K/uL (0-0.5); HEMATOCRIT 32.3 % (42-52); HEMOGLOBIN 11.3 g/dL (14.0-18.0); IG# 0.08 K/uL (0.00-0.02); LYMPH ABS # 1.65 K/uL (1.2-3.4); MEAN CELL VOLUME 89.5 fL (80-100); MEAN CORPUSCULAR HEMOGLOBIN 31.3 pg (25-34); MEAN PLATELET VOLUME 8.6 fL (7.4-10.4); MONO % 7.8 %; MONO ABS # 0.48 K/uL (0.11-0.59); NEUT ABS # 3.86 K/uL (1.4-6.5); PLATELET COUNT 134 K/uL (130-400); RED CELL DISTRIBUTION WIDTH CV 19.7 % (11.5-14.5); RED CELL DISTRIBUTION WIDTH SD 64.5 fL (36.4-46.3); WHITE BLOOD COUNT 6.12 K/uL (4.8-10.8)
[2017-09-30 06:37] LABS: INR 1.1 (0.9-1.1); PTT PATIENT 27.8 SECONDS (21.0-31.0)
[2017-09-30 06:46] LABS: ALBUMIN 2.1 gm/dl (3.4-5.0); ALKALINE PHOSPHATASE 74 U/L (45-117); ALT/SGPT 28 U/L (12-78); AST/SGOT 60 U/L (15-37); BLOOD UREA NITROGEN 15 mg/dl (7-18); CALCIUM 7.6 mg/dl (8.5-10.1); CARBON DIOXIDE 21 mmol/L (21-32); CREATININE 0.82 mg/dl (0.60-1.40); GLUCOSE 74 mg/dl (70-99); PHOSPHORUS 3.3 mg/dl (2.5-4.9); POTASSIUM 3.9 mmol/L (3.5-5.1); SODIUM 138 mmol/L (136-145); TOTAL PROTEIN 7.5 gm/dl (6.4-8.2)
[2017-09-30] MEDS: NYSTATIN SUSP 500,000 U/5 ML UDC PO SCH ×4 (07:29→20:40)
[2017-09-30] MEDS: FAMOTIDINE IV INJ 20 MG in SYRINGE 3 ML IV SCH (07:29)
[2017-09-30] MEDS ORDERED: PIPERACILL/TAZOBAC IV 3.375 GM in DEXTROSE 5% 100ML IV STA (08:07)
[2017-09-30] MEDS ORDERED: PIPERACILL/TAZOBAC CONSULT ACTIVE PRN (08:15)
[2017-09-30] MEDS ORDERED: VANCOMYCIN INJ 1,500 MG in SODIUM CHLORIDE 0.9% 500ML 500 ML IV STA (08:44)
[2017-09-30] MEDS ORDERED: VANCOMYCIN CONSULT ACTIVE PRN (08:45)
--- NOTE | 2017-09-30 08:57 | HEME/ONC PROGRESS NOTE ---
DATE: 09/30/2017 DIAGNOSES: 1. 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 2. Diverticulitis. SUBJECTIVE: Mj Anders is a pleasant 57-year-old gentleman, who was admitted 3 days prior with diverticular disease. The patient had previously undergone T7 posterior laminectomy and debulking of an epidural lesion on September 21 at the [facility]. MRI of the thoracic spine done at that time described multiple enhancing bony lesions compatible with multiple myeloma with a destructive lesion involving posterior elements at T6 through T8 with encroachment of the spinal cord at T7. Also noted was a pathological fracture of T3. The patient continues on antibiotics for diverticulitis. He remains n.p.o. for reasons unclear. The patient is not experiencing abdominal pain. His vital signs are otherwise stable. He is passing flatus as per the nursing department. The patient received transfusional support during his hospitalization. Again, there is some ambiguity regarding his current diagnosis and we will work collectively with pathology department at [facility] to obtain a final diagnosis. PHYSICAL EXAMINATION: GENERAL: Gentleman looks quite well, lying supine, awake, alert and appropriate, in no acute distress. VITAL SIGNS: Temperature is 36.6, pulse 83, respirations 18, and blood pressure 129/72. SKIN: Without rash or lesion. HEENT: Oral mucosa without erythema or ulceration. NECK: Supple. HEART: Regular rate and rhythm. LUNGS: Clear to auscultation. ABDOMEN: Soft, nontender, and nondistended. EXTREMITIES: No clubbing, cyanosis or edema, pneumatic devices in place. NEUROLOGIC: He is awake and neuro status intact. LABORATORY DATA: hemoglobin 11.3, and platelet count 134,000. Sodium 138, potassium 3.9, chloride 108, carbon dioxide 21, creatinine 0.82, and BUN 15. IMPRESSION: 1. 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 2. Suspected septic shock. 3. Diverticulitis. PLAN: Engaged in discussion with the critical care team. Mr. Anders has made considerable progress. His vital signs are stable and he reports feeling hungry. General surgery apparently has him n.p.o. anticipating a possible surgical procedure. Requested the critical care team reconsult with general surgery to see if this gentleman is cleared for diet. From a hematologic perspective, I have nothing to add at this time; however, we will consult with the pathology department at [facility] to finalize the diagnosis as to proceed with therapeutic plan upon this gentleman's discharge. The patient himself voiced no concerns and I was happy to introduce myself today as Mr. Anders is scheduled for outpatient followup this coming . Thank you for assisting us in the care of this very pleasant gentleman. We will continue to follow him periodically during his hospital stay. ISABEL
--- NOTE | 2017-09-30 13:44 | Pharmacy Progress Note ---
Pharmacy Antibiotic Prog Note Date of Service Sep 30, 2017. Objective Height (Feet): 5 Height (Inches): 8.00 Weight (Kilograms): 84.000 Lab Results (24hrs): Test 09/29/17 21:14 09/30/17 05:29 09/30/17 05:33 Bedside Glucose 113 mg/dl (70-99) 80 mg/dl (70-99) White Blood Count 6.12 K/uL (4.8-10.8) Red Blood Count 3.61 M/uL (4.7-6.1) Hemoglobin 11.3 g/dL (14.0-18.0) Hematocrit 32.3 % (42-52) Mean Corpuscular Volume 89.5 fL (80-100) Mean Corpuscular Hemoglobin 31.3 pg (25-34) Mean Corpuscular Hemoglobin Concent 35.0 g/dl (32-36) Platelet Count 134 K/uL (130-400) Mean Platelet Volume 8.6 fL (7.4-10.4) Neutrophils (%) (Auto) 63.0 % Lymphocytes (%) (Auto) 27.0 % Monocytes (%) (Auto) 7.8 % Eosinophils (%) (Auto) 0.7 % Basophils (%) (Auto) 0.2 % Neutrophils # (Auto) 3.86 K/uL (1.4-6.5) Lymphocytes # (Auto) 1.65 K/uL (1.2-3.4) Monocytes # (Auto) 0.48 K/uL (0.11-0.59) Eosinophils # (Auto) 0.04 K/uL (0-0.5) Basophils # (Auto) 0.01 K/uL (0-0.2) RDW Standard Deviation 64.5 fL (36.4-46.3) RDW Coefficient of Variation 19.7 % (11.5-14.5) Immature Granulocyte % (Auto) 1.3 % Immature Granulocyte # (Auto) 0.08 K/uL (0.00-0.02) Prothrombin Time 12.0 SECONDS (9.0-12.0) Prothromb Time International Ratio 1.1 (0.9-1.1) Activated Partial Thromboplast Time 27.8 SECONDS (21.0-31.0) Partial Thromboplastin Ratio 1.1 Sodium Level 138 mmol/L (136-145) Potassium Level 3.9 mmol/L (3.5-5.1) Chloride Level 108 mmol/L (98-107) Carbon Dioxide Level 21 mmol/L (21-32) Anion Gap 9.0 mmol/L (3-11) Blood Urea Nitrogen 15 mg/dl (7-18) Creatinine 0.82 mg/dl (0.60-1.40) Est Creatinine Clear Calc Drug Dose 102.4 ml/min Estimated GFR () 112.2 Estimated GFR (Non- 96.8 BUN/Creatinine Ratio 18.5 (10-20) Random Glucose 74 mg/dl (70-99) Calcium Level 7.6 mg/dl (8.5-10.1) Phosphorus Level 3.3 mg/dl (2.5-4.9) Magnesium Level 1.9 mg/dl (1.8-2.4) Total Bilirubin 0.3 mg/dl (0.2-1) Direct Bilirubin < 0.1 mg/dl (0-0.2) Aspartate Amino Transf (AST/SGOT) 60 U/L (15-37) Alanine Aminotransferase (ALT/SGPT) 28 U/L (12-78) Alkaline Phosphatase 74 U/L (45-117) Total Protein 7.5 gm/dl (6.4-8.2) Albumin 2.1 gm/dl (3.4-5.0) Assessment & Plan Assessment * 57 yo M recently diagnosed with multiple myeloma (not yet started on chemotherapy per ICU rounds) being treated with Zosyn, vancomycin for diverticulitis. * Vancomycin resumed per Dr. Lira this AM. * ID on board and recommended continuation of Zosyn, vancomycin * SCr trended down from 1.2 to 0.8 mg/dL - anticipate improved clearance of vancomycin * Goal vancomycin trough 15-20 mcg/mL * Trough of 12.3 mcg/mL is slightly subtherapeutic. This was drawn slightly prior to steady state on 09/29 while on vancomycin 1250 mg IV q12h. * Renal function is also improving, therefore will resume vancomycin at slightly higher dose * Trough prior to the 4th dose of current regimen - this also may be slightly before steady state Plan * Vancomycin 1500 mg IV q12h * Trough 10/01 @ 2130 Pharmacy will continue to follow and will adjust dose/frequency as necessary. Thank you
[2017-09-30] MEDS: PIPERACILL/TAZOBAC IV 3.375 GM in DEXTROSE 5% 100ML IV SCH ×2 (14:30→22:11)
--- NOTE | 2017-09-30 14:57 | Surgery Progress Note ---
Surgery Progress Note Date of Service Sep 30, 2017. Subjective Post OP Day: HD # 3 + feeling well, + bowel movement, + flatus, + diet (tolerating clear liquids), No complaints, No nausea, No vomiting Objective Vital Signs: Date Time Temp Pulse Resp B/P (MAP) Pulse Ox O2 Delivery O2 Flow Rate FiO2 09/30/17 11:00 36.4 88 18 112/70 (84) 96 Room Air 09/30/17 10:01 93 19 98/61 (73) 95 Room Air 09/30/17 08:01 36.5 85 20 116/78 (91) 95 Room Air 09/30/17 08:00 Room Air 09/30/17 06:00 80 20 108/67 (81) 98 Room Air 09/30/17 04:00 97 Room Air 09/30/17 04:00 36.6 83 18 129/72 (91) 97 Room Air 09/30/17 02:00 76 17 120/71 (87) 95 Room Air 09/30/17 00:01 36.5 75 20 99/76 (84) 95 Room Air 09/29/17 23:59 95 Room Air 09/29/17 22:00 83 14 104/71 (82) 95 Room Air 09/29/17 20:00 96 Room Air 09/29/17 19:01 87 21 100/63 (75) 98 09/29/17 19:00 83 19 97 09/29/17 18:31 78 23 107/68 (81) 97 09/29/17 18:30 81 22 97 09/29/17 18:01 80 21 96/63 (74) 98 09/29/17 18:00 77 24 98 09/29/17 17:31 82 20 97/62 (74) 100 09/29/17 17:30 86 15 99 09/29/17 17:01 85 25 111/70 (84) 96 09/29/17 17:00 83 28 97 09/29/17 16:30 90 22 100 09/29/17 16:01 36.7 82 21 102/69 (80) 93 Nasal Cannula 2.0 09/29/17 16:00 88 16 98 09/29/17 16:00 99 2.0 09/29/17 15:31 108 21 114/91 (99) 96 2/26/18 15:30 90 22 100 09/29/17 15:01 85 29 120/75 (90) 98 09/29/17 15:00 79 22 98 General Appearance: WD/WN, no apparent distress Head: normocephalic, atraumatic Neck: trachea midline Respiratory/Chest: no respiratory distress, no accessory muscle use Abdomen: non tender, soft, no organomegaly, no pulsatile mass Laboratory Results: Results Past 24 Hours Test 09/29/17 18:14 09/29/17 21:14 09/30/17 05:29 09/30/17 05:33 Range/Units Bedside Glucose 112 113 80 70-99 mg/dl White Blood Count 6.12 4.8-10.8 K/uL Red Blood Count 3.61 4.7-6.1 M/uL Hemoglobin 11.3 14.0-18.0 g/dL Hematocrit 32.3 42-52 % Mean Corpuscular Volume 89.5 80-100 fL Mean Corpuscular Hemoglobin 31.3 25-34 pg Mean Corpuscular Hemoglobin Concent 35.0 32-36 g/dl Platelet Count 134 130-400 K/uL Mean Platelet Volume 8.6 7.4-10.4 fL Neutrophils (%) (Auto) 63.0 % Lymphocytes (%) (Auto) 27.0 % Monocytes (%) (Auto) 7.8 % Eosinophils (%) (Auto) 0.7 % Basophils (%) (Auto) 0.2 % Neutrophils # (Auto) 3.86 1.4-6.5 K/uL Lymphocytes # (Auto) 1.65 1.2-3.4 K/uL Monocytes # (Auto) 0.48 0.11-0.59 K/uL Eosinophils # (Auto) 0.04 0-0.5 K/uL Basophils # (Auto) 0.01 0-0.2 K/uL RDW Standard Deviation 64.5 36.4-46.3 fL RDW Coefficient of Variation 19.7 11.5-14.5 % Immature Granulocyte % (Auto) 1.3 % Immature Granulocyte # (Auto) 0.08 0.00-0.02 K/uL Prothrombin Time 12.0 9.0-12.0 SECONDS Prothromb Time International Ratio 1.1 0.9-1.1 Activated Partial Thromboplast Time 27.8 21.0-31.0 SECONDS Partial Thromboplastin Ratio 1.1 Sodium Level 138 136-145 mmol/L Potassium Level 3.9 3.5-5.1 mmol/L Chloride Level 108 98-107 mmol/L Carbon Dioxide Level 21 21-32 mmol/L Anion Gap 9.0 3-11 mmol/L Blood Urea Nitrogen 15 7-18 mg/dl Creatinine 0.82 0.60-1.40 mg/dl Est Creatinine Clear Calc Drug Dose 102.4 ml/min Estimated GFR () 112.2 Estimated GFR (Non- 96.8 BUN/Creatinine Ratio 18.5 10-20 Random Glucose 74 70-99 mg/dl Calcium Level 7.6 8.5-10.1 mg/dl Phosphorus Level 3.3 2.5-4.9 mg/dl Magnesium Level 1.9 1.8-2.4 mg/dl Total Bilirubin 0.3 0.2-1 mg/dl Direct Bilirubin < 0.1 0-0.2 mg/dl Aspartate Amino Transf (AST/SGOT) 60 15-37 U/L Alanine Aminotransferase (ALT/SGPT) 28 12-78 U/L Alkaline Phosphatase 74 45-117 U/L Total Protein 7.5 6.4-8.2 gm/dl Albumin 2.1 3.4-5.0 gm/dl Assessment & Plan Acute diverticulitis - ct scan showing no evidence of complicated diverticulitis, no peridiverticular abscess - abdominal pain has resolved - No leukocytosis, afebrile - + bowel function Plan: No acute surgical intervention required at this time. Continue ID recommendations for antibiotics Advance diet as tolerated Continue current medical management Our services signing off, thank you for consultation Patient can follow-up in surgical office with Dr. Lind in 2 weeks, office number [phone] Dr. Lind has seen and examined patient, agrees with above.
[2017-09-30] MEDS: PRAVASTATIN SOD 20 MG TAB PO SCH (20:38)
[2017-09-30] MEDS: ENOXAPARIN 40 MG/0.4 ML SYR SC SCH (20:39)
--- NOTE | 2017-09-30 20:47 | Infectious Disease Progress Nt ---
Progress Note Date of Service Sep 30, 2017. Subjective Pt evaluation today including: conversation w/ patient, conversation w/ family , physical exam, chart review, lab review, review of studies, conversation w/ automotive internet sales consultant, review of inpatient medication list Feeling somewhat better today. Mental status improved. Remains afebrile. Cultures remain negative. All Other Systems: Reviewed and Negative Medications Current Inpatient Medications Medications (Trade) Dose Ordered Sig/Malik Route Start Time Stop Time Status Last Admin Dose Admin Enoxaparin Sodium (Lovenox Inj) 40 mg HS SC 09/27/17 21:30 10/27/17 21:29 09/30/17 20:39 40 MG Potassium Chloride/Sodium Chloride 1,000 ml @ 150 mls/hr Q6H40M IV 09/27/17 21:30 10/27/17 21:29 09/30/17 15:23 150 MLS/HR Ondansetron HCl (Zofran Inj) 4 mg Q6H PRN IV 09/27/17 19:45 10/27/17 19:44 Acetaminophen 100 ml @ 400 mls/hr Q8H PRN IV 09/27/17 19:45 10/27/17 19:44 09/29/17 21:40 400 MLS/HR Ioversol (Optiray 320) 100 ml UD PRN IV 09/27/17 20:15 10/01/17 20:14 Hydromorphone HCl (Dilaudid Inj) 0.5 mg Q4H PRN IV 09/29/17 08:30 10/13/17 08:29 Oxycodone HCl (Roxicodone Immediate Rel Tab) 10 mg Q4H PRN PO 09/29/17 08:30 10/13/17 08:29 09/30/17 20:38 10 MG Pravastatin Sodium (Pravachol Tab) 20 mg HS PO 09/29/17 21:00 10/29/17 20:59 09/30/17 20:38 20 MG Nystatin (Mycostatin Susp) 5 ml QID PO 09/29/17 22:00 10/09/17 21:59 09/30/17 20:40 5 ML Miscellaneous Information (Consult) 1 ea UD PRN N/A 09/30/17 08:15 10/30/17 08:14 Miscellaneous Information (Consult) 1 ea UD PRN N/A 09/30/17 08:45 10/30/17 08:44 Piperacillin Sod/ Tazobactam Sod 3.375 gm/Dextrose 115 ml @ 28.75 mls/ hr Q8H IV 09/30/17 14:00 10/10/17 13:59 09/30/17 14:30 28.75 MLS/HR Vancomycin HCl 1500 mg/Sodium Chloride 530 ml @ 200 mls/hr Q12@1000,2200 IV 09/30/17 22:00 10/10/17 21:59 Famotidine (Pepcid Tab) 20 mg BID PO 09/30/17 20:00 10/30/17 19:59 Objective Vital Signs Date Time Temp Pulse Resp B/P (MAP) Pulse Ox O2 Delivery O2 Flow Rate FiO2 09/30/17 16:30 36.5 80 20 102/70 (81) 98 Room Air 09/30/17 15:00 36.6 78 22 134/75 (94) 96 09/30/17 11:00 36.4 88 18 112/70 (84) 96 Room Air 09/30/17 10:01 93 19 98/61 (73) 95 Room Air 09/30/17 08:01 36.5 85 20 116/78 (91) 95 Room Air 09/30/17 08:00 Room Air 09/30/17 06:00 80 20 108/67 (81) 98 Room Air 09/30/17 04:00 97 Room Air 09/30/17 04:00 36.6 83 18 129/72 (91) 97 Room Air 09/30/17 02:00 76 17 120/71 (87) 95 Room Air 09/30/17 00:01 36.5 75 20 99/76 (84) 95 Room Air 09/29/17 23:59 95 Room Air 09/29/17 22:00 83 14 104/71 (82) 95 Room Air Physical Exam General Appearance: WD/WN, no apparent distress Eyes: normal inspection, EOMI, sclerae normal ENT: normal ENT inspection, hearing grossly normal, pharynx normal Neck: supple, no adenopathy, thyroid normal, trachea midline Respiratory/Chest: chest non-tender, lungs clear, normal breath sounds, no respiratory distress Cardiovascular: regular rate, rhythm, no gallop, no murmur Abdomen: normal bowel sounds, non tender, soft, no organomegaly Extremities: non-tender, no calf tenderness, normal capillary refill Neurologic/Psychiatric: alert, oriented x 3 Skin: normal color, warm/dry, no rash Lymphatic: no adenopathy Laboratory Results RUN DATE: 09/29/17 [facility] LAB PAGE 1 RUN TIME: 708 Specimen Inquiry PATIENT: KAITLIN [facility]UI [facility] : [id number] AGE/SX: 57/M ROOM: E108 REG : 09/27/[address]: Michel Beckman MD : [id number] BED: 1 DIS : STATUS: ADM IN TLOC: SPEC #: [id number] MARTA: 09/27/17 STATUS: RES REQ #: [id number] RECD: 09/27/17-[address]: Kirill Gann M.D. SOURCE: BLOOD ENTR: 09/27/17-[address] [facility] [address]: Valeria Lackey, C.R.N.P. SPDESC: ORDERED: BLOOD CULTURE COMMENTS: Comments to Medical Coding Instructor SAME TIME DIFFERENT SITES Procedure Result Verified Site BLD CULT Preliminary 09/29/17-708 NO GROWTH TO DATE. Last 24 Hours Test 09/29/17 21:14 09/30/17 05:29 09/30/17 05:33 Bedside Glucose 113 mg/dl 80 mg/dl White Blood Count 6.12 K/uL Red Blood Count 3.61 M/uL Hemoglobin 11.3 g/dL Hematocrit 32.3 % Mean Corpuscular Volume 89.5 fL Mean Corpuscular Hemoglobin 31.3 pg Mean Corpuscular Hemoglobin Concent 35.0 g/dl Platelet Count 134 K/uL Mean Platelet Volume 8.6 fL Neutrophils (%) (Auto) 63.0 % Lymphocytes (%) (Auto) 27.0 % Monocytes (%) (Auto) 7.8 % Eosinophils (%) (Auto) 0.7 % Basophils (%) (Auto) 0.2 % Neutrophils # (Auto) 3.86 K/uL Lymphocytes # (Auto) 1.65 K/uL Monocytes # (Auto) 0.48 K/uL Eosinophils # (Auto) 0.04 K/uL Basophils # (Auto) 0.01 K/uL RDW Standard Deviation 64.5 fL RDW Coefficient of Variation 19.7 % Immature Granulocyte % (Auto) 1.3 % Immature Granulocyte # (Auto) 0.08 K/uL Prothrombin Time 12.0 SECONDS Prothromb Time International Ratio 1.1 Activated Partial Thromboplast Time 27.8 SECONDS Partial Thromboplastin Ratio 1.1 Sodium Level 138 mmol/L Potassium Level 3.9 mmol/L Chloride Level 108 mmol/L Carbon Dioxide Level 21 mmol/L Anion Gap 9.0 mmol/L Blood Urea Nitrogen 15 mg/dl Creatinine 0.82 mg/dl Est Creatinine Clear Calc Drug Dose 102.4 ml/min Estimated GFR () 112.2 Estimated GFR (Non- 96.8 BUN/Creatinine Ratio 18.5 Random Glucose 74 mg/dl Calcium Level 7.6 mg/dl Phosphorus Level 3.3 mg/dl Magnesium Level 1.9 mg/dl Total Bilirubin 0.3 mg/dl Direct Bilirubin < 0.1 mg/dl Aspartate Amino Transf (AST/SGOT) 60 U/L Alanine Aminotransferase (ALT/SGPT) 28 U/L Alkaline Phosphatase 74 U/L Total Protein 7.5 gm/dl Albumin 2.1 gm/dl Assessment and Plan (1) Acute diverticulitis (2) Septic shock (3) Peripheral arterial disease (4) Tobacco abuse (5) Recent spinal surgery (6) Hypertension (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 Patient should be continued on IV vancomycin and Zosyn as appears to be responding slowly. Length of IV antibiotics will be determined by clinical response. Will follow.
[2017-09-30] MEDS: FAMOTIDINE 20 MG TAB PO SCH (20:56)
[2017-09-30] MEDS ORDERED: VANCOMYCIN INJ 1,250 MG in SODIUM CHLORIDE 0.9% 250ML 250 ML IV SCH ×4 (22:00)
--- NOTE | 2017-09-30 22:09 | Hospitalist Progress Note ---
Hospitalist Progress Note Date of Service Sep 30, 2017. Subjective Pt evaluation today including: conversation w/ patient Patient feeling much better. He denies any abdominal pain. He tolerated clear liquid diet for 3 meals today. He had a bowel movement and does not know if there is any blood in it. He denies chest pain or shortness of breath. He cannot recall if he has ever been told that he has CHF. He is still just shocked and overwhelmed by all the recent medical events in the last 2 weeks. All Other Systems: Reviewed and Negative Objective Vital Signs Date Time Temp Pulse Resp B/P (MAP) Pulse Ox O2 Delivery O2 Flow Rate FiO2 09/30/17 20:19 36.4 78 20 101/69 (80) 95 Room Air 09/30/17 16:30 36.5 80 20 102/70 (81) 98 Room Air 09/30/17 15:00 36.6 78 22 134/75 (94) 96 09/30/17 11:00 36.4 88 18 112/70 (84) 96 Room Air 09/30/17 10:01 93 19 98/61 (73) 95 Room Air 09/30/17 08:01 36.5 85 20 116/78 (91) 95 Room Air 09/30/17 08:00 Room Air 09/30/17 06:00 80 20 108/67 (81) 98 Room Air 09/30/17 04:00 97 Room Air 09/30/17 04:00 36.6 83 18 129/72 (91) 97 Room Air 09/30/17 02:00 76 17 120/71 (87) 95 Room Air 09/30/17 00:01 36.5 75 20 99/76 (84) 95 Room Air 09/29/17 23:59 95 Room Air 09/29/17 22:00 83 14 104/71 (82) 95 Room Air Physical Exam General Appearance: WD/WN, no apparent distress (Sitting in a chair reading the paper) Eyes: normal inspection, sclerae normal ENT: hearing grossly normal Neck: trachea midline Respiratory/Chest: lungs clear, normal breath sounds, no respiratory distress, no accessory muscle use Cardiovascular: regular rate, rhythm, no edema, no gallop, no murmur Abdomen: normal bowel sounds, non tender, soft, no organomegaly Extremities: non-tender, normal inspection, no pedal edema, no calf tenderness , + pertinent finding (Thoracic spine incision is healing, no surrounding erythema, no drainage, nontender) Neurologic/Psychiatric: no motor/sensory deficits, alert, normal mood/affect, oriented x 3 Skin: normal color, warm/dry, no rash Laboratory Results Last 24 Hours Test 09/30/17 05:29 09/30/17 05:33 White Blood Count 6.12 K/uL Red Blood Count 3.61 M/uL Hemoglobin 11.3 g/dL Hematocrit 32.3 % Mean Corpuscular Volume 89.5 fL Mean Corpuscular Hemoglobin 31.3 pg Mean Corpuscular Hemoglobin Concent 35.0 g/dl Platelet Count 134 K/uL Mean Platelet Volume 8.6 fL Neutrophils (%) (Auto) 63.0 % Lymphocytes (%) (Auto) 27.0 % Monocytes (%) (Auto) 7.8 % Eosinophils (%) (Auto) 0.7 % Basophils (%) (Auto) 0.2 % Neutrophils # (Auto) 3.86 K/uL Lymphocytes # (Auto) 1.65 K/uL Monocytes # (Auto) 0.48 K/uL Eosinophils # (Auto) 0.04 K/uL Basophils # (Auto) 0.01 K/uL RDW Standard Deviation 64.5 fL RDW Coefficient of Variation 19.7 % Immature Granulocyte % (Auto) 1.3 % Immature Granulocyte # (Auto) 0.08 K/uL Prothrombin Time 12.0 SECONDS Prothromb Time International Ratio 1.1 Activated Partial Thromboplast Time 27.8 SECONDS Partial Thromboplastin Ratio 1.1 Sodium Level 138 mmol/L Potassium Level 3.9 mmol/L Chloride Level 108 mmol/L Carbon Dioxide Level 21 mmol/L Anion Gap 9.0 mmol/L Blood Urea Nitrogen 15 mg/dl Creatinine 0.82 mg/dl Est Creatinine Clear Calc Drug Dose 102.4 ml/min Estimated GFR () 112.2 Estimated GFR (Non- 96.8 BUN/Creatinine Ratio 18.5 Random Glucose 74 mg/dl Calcium Level 7.6 mg/dl Phosphorus Level 3.3 mg/dl Magnesium Level 1.9 mg/dl Total Bilirubin 0.3 mg/dl Direct Bilirubin < 0.1 mg/dl Aspartate Amino Transf (AST/SGOT) 60 U/L Alanine Aminotransferase (ALT/SGPT) 28 U/L Alkaline Phosphatase 74 U/L Total Protein 7.5 gm/dl Albumin 2.1 gm/dl Bedside Glucose 80 mg/dl Assessment and Plan This patient is a 57yo male with history of CAD with inferior CA in 2000, chronic systolic CHF with baseline EF 45%, ischemic cardiomyopathy, previous smoker with emphysema, PAD status post aortobifemoral bypass, and recent diagnosis of Plasmablastic myeloma/lymphoma with surgery at [facility] last week for stabilization of a pathologic T7 mass with compression on the spinal cord. He underwent laminectomy with resection of the mass and tne stabilization. 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 CTs of his CAP also revealed widespread, though not bulky, lymphadenopathy. Bone marrow biopsy 09/23 confirmed myeloma, with plasma cells comprising 50% of marrow cellularity. He presented here with sweats, chills, left inguinal pain, and generalized weakness. He was found to have septic shock with most likely source being an acute sigmoid diverticulitis that was uncomplicated. There was no evidence of infection at the recent site of his surgery. 1. shock - likely septic - due to acute sigmoid diverticulitis? Transferred out of the ICU today. He did not require vasopressors. Much improved today with normal BPs and no fever. He looks/feels much better. He has mild LV dysfunction on echo which is stable as per history from oncology , but no previous echo for comparison here. But there is no evidence of cardiogenic shock. Blood/urine cx's remain no growth to date U/a unremarkable. Prostate exam showed BPH but no prostatitis as per previous hospitalist Flu negative. -Cont broad-spectrum IV abx (zosyn, vanco). ID is following. -If he were to spike fevers again, have worsening back pain, etc would have low threshold for re-imaging his spine given the recent surgery at [facility]. -Decrease IV fluids rate as he is tolerating p.o. -DC Sofia in the morning 2. acute sigmoid diverticulitis - clinically improved with no abdominal pain today. -Appreciate general surgery consultation-they have signed off today and recommend follow-up in the surgery clinic in 2 weeks. -Tolerating clear liquid diet -We will likely advance to soft low residue diet tomorrow -Continue antibiotics as above 3. Acute metabolic encephalopathy - 2nd to #1 -resolved with treatment of sepsis CT head w/o acute findings. 4. anemia - Hb was 10.1 prior to transfer to [place] [facility] 10 days ago. The acute drop to the 6's likely represented copious phlebotomy, bone marrow suppression from infection, and recent blood loss from surgery. He is s/p 4 units of PRBCs this admission with stable H/H today at 11.3. Hemoccult was negative at admission. -Follow CBC 5. severe protein calorie malnutrition - albumin is <2. Will address once acute issues are resolved. Should improve now that he is eating 6. Plasmablastic myeloma/lymphoma with surgery at [facility] last week for stabilization of a pathologic T7 mass with compression on the spinal cord. He underwent laminectomy with resection of the mass and ten stabilization. 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 CTs of his CAP also revealed widespread, though not bulky, lymphadenopathy. Also with widespread lytic bone lesions. Bone marrow biopsy 09/23 confirmed myeloma, with plasma cells comprising 50% of marrow cellularity. Oncology says that this can commonly be seen in HIV patients, although can also be in patients with out HIV. Prognosis is apparently quite poor. Heme/onc consultation appreciated. -Follow-up with hematology/oncology in the clinic after discharge and recovery from diverticulitis -Continue pain meds for recent back surgery and will need follow-up with his surgeon as previously scheduled after discharge 7. DVT proph - lovenox. 8. hyponatremia - due to volume depletion/dehydration. Resolved with hydration 9. CAD/chronic systolic CHF - EF 45% - appears to have ischemic cardiomyopathy with wall motion abnormalities. This is chronic as per oncology note who has access to [facility] medical records -Will call his relay repairer tomorrow to confirm. -Home metoprolol is on hold for hypotension, will continue to hold due to low normal blood pressures -Should likely be on an FATOUMATA inhibitor or ARB, but will defer to cardiology -he is compensated from a CHF standpoint today. -Decreasing IV fluids as above -Continue statin -Aspirin on hold but can likely restart in the near future Disposition-PT/OT consults to see if needs SNF placement but does not seem likely, discharge likely in 1-2 days
[2017-09-30] MEDS: VANCOMYCIN INJ 1,500 MG in SODIUM CHLORIDE 0.9% 500ML 500 ML IV SCH (22:11)
[2017-10-01 02:41] VITALS: BP 100/67; PULSE 76; TEMP 36.5; O2SAT 95
[2017-10-01] MEDS: PIPERACILL/TAZOBAC IV 3.375 GM in DEXTROSE 5% 100ML IV SCH ×3 (05:10→21:48)
[2017-10-01] MEDS: OXYCODONE HCL IR 5 MG TAB (IMMEDIATE RELEASE) PO PRN ×2 (05:12→14:34)
[2017-10-01 05:54] LABS: BASO % 0.2 %; BASO ABS # 0.01 K/uL (0-0.2); EOS % 1.5 %; EOS ABS # 0.08 K/uL (0-0.5); HEMATOCRIT 32.1 % (42-52); HEMOGLOBIN 10.8 g/dL (14.0-18.0); IG# 0.03 K/uL (0.00-0.02); LYMPH % 33.8 %; LYMPH ABS # 1.77 K/uL (1.2-3.4); MEAN CELL VOLUME 91.2 fL (80-100); MEAN CORPUSCULAR HEMOGLOBIN 30.7 pg (25-34); MEAN CORPUSCULAR HGB CONC 33.6 g/dl (32-36); MEAN PLATELET VOLUME 8.8 fL (7.4-10.4); MONO % 8.2 %; MONO ABS # 0.43 K/uL (0.11-0.59); NEUT % 55.7 %; NEUT ABS # 2.91 K/uL (1.4-6.5); PLATELET COUNT 126 K/uL (130-400); RED CELL DISTRIBUTION WIDTH CV 19.1 % (11.5-14.5); RED CELL DISTRIBUTION WIDTH SD 63.2 fL (36.4-46.3); WHITE BLOOD COUNT 5.23 K/uL (4.8-10.8)
[2017-10-01 06:37] LABS: ALBUMIN 2.1 gm/dl (3.4-5.0); CALCIUM 7.8 mg/dl (8.5-10.1); CREATININE 1.11 mg/dl (0.60-1.40); POTASSIUM 3.9 mmol/L (3.5-5.1)
[2017-10-01 06:39] LABS: TOTAL PROTEIN 7.5 gm/dl (6.4-8.2)
[2017-10-01 06:58] VITALS: BP 118/76; PULSE 82; TEMP 36.5; O2SAT 98
[2017-10-01] MEDS: FAMOTIDINE 20 MG TAB PO SCH ×2 (08:15→21:50)
[2017-10-01] MEDS: NYSTATIN SUSP 500,000 U/5 ML UDC PO SCH ×4 (08:15→21:51)
--- NOTE | 2017-10-01 08:36 | HEME/ONC PROGRESS NOTE ---
DATE: 10/01/2017 DIAGNOSES: 1. Multiple myeloma. 2. Diverticulitis. SUBJECTIVE: Mj is a pleasant 57-year-old gentleman who was admitted 4 days prior with diverticular disease. Mj had previously undergone T7 posterior laminectomy and debulking of an epidural lesion on 09/21/[address] Guzman was down for a meeting at [place] and conferred with the pathology department there. Diagnosis of multiple myeloma is now confirmed and will plan accordingly once Mj is discharged from hospital. He was subsequently transferred from the ICU up to the oncology floor, seems to be doing well. Pain is controlled. The patient is moving his bowels and is able to ambulate with minimal assistance. He reports no issues. PHYSICAL EXAMINATION: GENERAL: Again looks well, awake, alert and appropriate, in no acute distress. VITAL SIGNS: Temperature 36.5, pulse 82, respirations 17, blood pressure 118/76. SKIN: Without rash or lesion. HEENT: Oral mucosa without erythema or ulceration. NECK: Supple. HEART: Regular rate and rhythm. LUNGS: Clear to auscultation. ABDOMEN: Soft, nontender, nondistended. EXTREMITIES: No clubbing, cyanosis or edema. NEUROLOGIC: Grossly intact. LABORATORY DATA: WBC count 5230, hemoglobin 10.8, platelet count 126,000. Sodium 136, potassium 3.9, chloride 106, carbon dioxide 24, BUN 9, creatinine 1.11, magnesium slightly decreased to 1.7, albumin decreased to 2.1. IMPRESSION: 1. Diverticulitis. 2. Hypoalbuminemia attributable to multiple myeloma. 3. Hypomagnesemia. 4. Multiple myeloma. PLAN: Mr. Anders is a pleasant 57-year-old gentleman with the above clinical issues on hospital day #4. Clinically, he is doing much better and his diet is being slowly advanced, currently on liquids which have been well tolerated. He has moved his bowels in the last 24 hours and pain is not an issue at this juncture. Diagnosis has been confirmed as Mr. Anders suffers from multiple myeloma. Anticipate discharge in the next day or two. We will arrange for outpatient followup to discuss induction therapy. I have nothing further to add. Would replace magnesium and again albumin is most likely decreased because of his disease. Thank you for assisting us in the care of this gentleman. We will continue to follow him periodically during his hospital stay.
[2017-10-01] MEDS ORDERED: MAGNESIUM SULFATE 1GM / D5W 1 GM in PREMIXED IN D5W 100 ML IV ONE (09:00)
[2017-10-01] MEDS: VANCOMYCIN INJ 1,500 MG in SODIUM CHLORIDE 0.9% 500ML 500 ML IV SCH ×2 (10:06→21:48)
[2017-10-01 12:33] VITALS: BP 113/77; PULSE 105; O2SAT 97
[2017-10-01] MEDS: NSS + 20MEQ KCL 1000ML 1,000 ML IV SCH (19:04)
--- NOTE | 2017-10-01 19:06 | Hospitalist Progress Note ---
Hospitalist Progress Note Date of Service Oct 01, 2017. Subjective Pt evaluation today including: conversation w/ patient, conversation w/ family (Mother and father at the bedside) Voiding: no voiding problems he is tolerating a clear liquids diet. Denies abdominal pain. Is feeling better. Denies chest pain or shortness of breath. He is still feeling fatigued and is not quite ready to go home. Constitutional: No fever All Other Systems: Reviewed and Negative Objective Vital Signs Date Time Temp Pulse Resp B/P (MAP) Pulse Ox O2 Delivery O2 Flow Rate FiO2 10/01/17 12:33 105 20 113/77 (89) 97 Room Air 10/01/17 06:58 36.5 82 17 118/76 (90) 98 Room Air 10/01/17 02:41 36.5 76 16 100/67 (78) 95 Room Air 09/30/17 23:29 36.6 83 18 94/63 (73) 96 Room Air 09/30/17 20:19 36.4 78 20 101/69 (80) 95 Room Air Physical Exam General Appearance: WD/WN, no apparent distress (Sitting in chair) Eyes: normal inspection, sclerae normal ENT: hearing grossly normal Neck: trachea midline Respiratory/Chest: lungs clear, normal breath sounds, no respiratory distress, no accessory muscle use Cardiovascular: regular rate, rhythm, no edema, no murmur Abdomen: normal bowel sounds, non tender, soft Extremities: non-tender, normal inspection, no pedal edema, no calf tenderness Neurologic/Psychiatric: alert, normal mood/affect, oriented x 3 Skin: normal color, warm/dry, no rash, + pertinent finding (Thoracic spine incision with mild frandy-incisional edema, no erythema or drainage) Laboratory Results Last 24 Hours Test 10/01/17 05:43 White Blood Count 5.23 K/uL Red Blood Count 3.52 M/uL Hemoglobin 10.8 g/dL Hematocrit 32.1 % Mean Corpuscular Volume 91.2 fL Mean Corpuscular Hemoglobin 30.7 pg Mean Corpuscular Hemoglobin Concent 33.6 g/dl Platelet Count 126 K/uL Mean Platelet Volume 8.8 fL Neutrophils (%) (Auto) 55.7 % Lymphocytes (%) (Auto) 33.8 % Monocytes (%) (Auto) 8.2 % Eosinophils (%) (Auto) 1.5 % Basophils (%) (Auto) 0.2 % Neutrophils # (Auto) 2.91 K/uL Lymphocytes # (Auto) 1.77 K/uL Monocytes # (Auto) 0.43 K/uL Eosinophils # (Auto) 0.08 K/uL Basophils # (Auto) 0.01 K/uL RDW Standard Deviation 63.2 fL RDW Coefficient of Variation 19.1 % Immature Granulocyte % (Auto) 0.6 % Immature Granulocyte # (Auto) 0.03 K/uL Sodium Level 136 mmol/L Potassium Level 3.9 mmol/L Chloride Level 106 mmol/L Carbon Dioxide Level 24 mmol/L Anion Gap 6.0 mmol/L Blood Urea Nitrogen 9 mg/dl Creatinine 1.11 mg/dl Est Creatinine Clear Calc Drug Dose 75.6 ml/min Estimated GFR () 83.8 Estimated GFR (Non- 72.3 BUN/Creatinine Ratio 8.3 Random Glucose 89 mg/dl Calcium Level 7.8 mg/dl Magnesium Level 1.7 mg/dl Total Bilirubin 0.4 mg/dl Direct Bilirubin 0.1 mg/dl Aspartate Amino Transf (AST/SGOT) 40 U/L Alanine Aminotransferase (ALT/SGPT) 27 U/L Alkaline Phosphatase 79 U/L Total Protein 7.5 gm/dl Albumin 2.1 gm/dl Assessment and Plan This patient is a 57yo male with history of CAD with inferior [place] in 2000, chronic systolic CHF with baseline EF 45%, ischemic cardiomyopathy, previous smoker with emphysema, PAD status post aortobifemoral bypass, and recent diagnosis of Plasmablastic myeloma/lymphoma with surgery at [facility] last week for stabilization of a pathologic T7 mass with compression on the spinal cord. He underwent laminectomy with resection of the mass and ten stabilization. 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 CTs of his CAP also revealed widespread, though not bulky, lymphadenopathy. Bone marrow biopsy 09/23 confirmed myeloma, with plasma cells comprising 50% of marrow cellularity. He presented here with sweats, chills, left inguinal pain, and generalized weakness. He was found to have septic shock with most likely source being an acute sigmoid diverticulitis that was uncomplicated. There was no evidence of infection at the recent site of his surgery. 1. shock - likely septic - due to acute sigmoid diverticulitis? Transferred out of the ICU on 09/30. He did not require vasopressors. Continues to improve today with normal BPs and remains afebrile He has mild LV dysfunction on echo which is stable as per history from oncology , but no previous echo for comparison here. But there is no evidence of cardiogenic shock. Blood/urine cx's remain no growth to date U/a unremarkable. Prostate exam showed BPH but no prostatitis as per previous hospitalist Flu negative. -Cont broad-spectrum IV abx (zosyn, vanco) and will transition to p.o. Augmentin finish out a 10 day course upon discharge. ID is following. -If he were to spike fevers again, have worsening back pain, etc would have low threshold for re-imaging his spine given the recent surgery at [facility]. -Discontinue IV fluids as he is tolerating p.o. -DCd today Sofia 2. acute sigmoid diverticulitis - clinically improved with no abdominal pain today. -Appreciate general surgery consultation-they have signed off today and recommend follow-up in the surgery clinic in 2 weeks. -Tolerating clear liquid diet - advance to low residue -Continue antibiotics as above 10.8 3. Acute metabolic encephalopathy - 2nd to #1 -resolved with treatment of sepsis CT head w/o acute findings. 4. anemia - Hb was 10.1 prior to transfer to [place] 10 days ago. The acute drop to the 6's likely represented copious phlebotomy, bone marrow suppression from infection, and recent blood loss from surgery. He is s/p 4 units of PRBCs this admission with stable H/H today at 10.8. Hemoccult was negative at admission. -Follow CBC 5. severe protein calorie malnutrition/hypoalbuminemia albumin is <2.- secondary to multiple myeloma and recent illness 6. Plasmablastic multiple myeloma with surgery at [facility] [place] last week for stabilization of a pathologic T7 mass with compression on the spinal cord. He underwent laminectomy with resection of the mass and ten stabilization. 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 CTs of his CAP also revealed widespread, though not bulky, lymphadenopathy. Also with widespread lytic bone lesions. Bone marrow biopsy 09/23 confirmed myeloma, with plasma cells comprising 50% of marrow cellularity. Heme/onc consultation appreciated. -Follow-up with hematology/oncology in the clinic after discharge and recovery from diverticulitis -Continue pain meds for recent back surgery and will need follow-up with his surgeon as previously scheduled after discharge 7. DVT proph - lovenox. 8. hyponatremia - due to volume depletion/dehydration. Resolved with hydration 9. CAD/chronic systolic CHF - EF 45% - appears to have ischemic cardiomyopathy with wall motion abnormalities. 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 -Home metoprolol is on hold for hypotension, will continue to hold due to low normal blood pressures -Should likely be on an FATOUMATA inhibitor or ARB, but will defer to cardiology as an outpatient -he is compensated from a CHF standpoint today. -Discontinuing IV fluids as above -Continue statin -Aspirin on hold but can likely restart upon discharge Disposition-PT/OT consults recommend return to home-likely tomorrow
[2017-10-01 19:42] VITALS: BP 103/70; PULSE 99; TEMP 36.4; O2SAT 96
[2017-10-01] MEDS ORDERED: VANCOMYCIN TROUGH ONE (21:30)
[2017-10-01] MEDS: ENOXAPARIN 40 MG/0.4 ML SYR SC SCH (21:50)
[2017-10-01] MEDS: PRAVASTATIN SOD 20 MG TAB PO SCH (21:50)
[2017-10-01 23:30] VITALS: BP 101/68; PULSE 85; TEMP 36.6; O2SAT 97
[2017-10-01] MEDS ORDERED: ACETAMINOPHEN 325 MG TAB PO PRN (23:30)
[2017-10-02] MEDS: PIPERACILL/TAZOBAC IV 3.375 GM in DEXTROSE 5% 100ML IV SCH ×2 (05:54→12:40)
[2017-10-02 05:58] LABS: BASO % 0.2 %; BASO ABS # 0.01 K/uL (0-0.2); EOS % 1.6 %; EOS ABS # 0.09 K/uL (0-0.5); HEMATOCRIT 33.4 % (42-52); HEMOGLOBIN 11.5 g/dL (14.0-18.0); IG# 0.05 K/uL (0.00-0.02); LYMPH % 29.5 %; LYMPH ABS # 1.63 K/uL (1.2-3.4); MEAN CORPUSCULAR HEMOGLOBIN 31.3 pg (25-34); MEAN CORPUSCULAR HGB CONC 34.4 g/dl (32-36); MEAN PLATELET VOLUME 8.6 fL (7.4-10.4); MONO % 8.2 %; MONO ABS # 0.45 K/uL (0.11-0.59); NEUT % 59.6 %; NEUT ABS # 3.29 K/uL (1.4-6.5); PLATELET COUNT 134 K/uL (130-400); RED CELL DISTRIBUTION WIDTH CV 18.4 % (11.5-14.5); RED CELL DISTRIBUTION WIDTH SD 61.1 fL (36.4-46.3); WHITE BLOOD COUNT 5.52 K/uL (4.8-10.8)
[2017-10-02 06:33] LABS: ALBUMIN 2.4 gm/dl (3.4-5.0); ALT/SGPT 41 U/L (12-78); AST/SGOT 50 U/L (15-37); BLOOD UREA NITROGEN 9 mg/dl (7-18); CALCIUM 8.5 mg/dl (8.5-10.1); CARBON DIOXIDE 25 mmol/L (21-32); CREATININE 1.25 mg/dl (0.60-1.40); GLUCOSE 85 mg/dl (70-99); POTASSIUM 4.1 mmol/L (3.5-5.1); SODIUM 136 mmol/L (136-145)
[2017-10-02 06:35] LABS: ALKALINE PHOSPHATASE 102 U/L (45-117); TOTAL PROTEIN 8.9 gm/dl (6.4-8.2)
[2017-10-02] MEDS: OXYCODONE HCL IR 5 MG TAB (IMMEDIATE RELEASE) PO PRN (07:21)
[2017-10-02] MEDS: FAMOTIDINE 20 MG TAB PO SCH (07:21)
[2017-10-02] MEDS: NYSTATIN SUSP 500,000 U/5 ML UDC PO SCH ×2 (07:21→12:00)
[2017-10-02 08:11] VITALS: BP 113/74; PULSE 85; TEMP 36.5; O2SAT 96
--- NOTE | 2017-10-02 08:23 | Pharmacy Progress Note ---
Pharmacy Abx Dose Short Note Date of Service Oct 02, 2017. Assessment & Plan Item Value Date Time Vancomycin Level Trough 12.3 mcg/ml 09/29/17 0924 Vancomycin Level Trough 20.1 mcg/ml 10/01/176 Item Value Date Time Creatinine 0.82 mg/dl # 09/30/17 0529 Creatinine 1.11 mg/dl 10/01/17 0543 Creatinine 1.25 mg/dl 10/02/17 0545 Est Creatinine Clear Calc Drug Dose 102.4 ml/min 09/30/17 0529 Est Creatinine Clear Calc Drug Dose 75.6 ml/min 10/01/17 0543 Est Creatinine Clear Calc Drug Dose 67.2 ml/min 10/02/17 0545 Assessment 57 year old male receiving IV Vancomycin and Zosyn for treatment of aggressive myeloma/lymphoma with mets, now with fever and diverticulitis. Day # 6 of antimicrobial therapy. ID following. Plan Vancomycin * Trough level of 20.1 mcg/mL is therapeutic, but SCr has bumped up the last two days, so I will empirically increase dosing interval to prevent accumulation * Change to Vancomycin 1500 mg IV every 14 hours * Goal trough level: 15 to 20 mcg/mL * Trough level ordered for: 10/04/17 prior to 0800 dose Zosyn * Continue 3.375g IV Q8H extended interval infusion for CrCl > 20ml/min Pharmacy will continue to follow and will adjust dose/frequency as necessary. Thank you.
--- NOTE | 2017-10-02 08:50 | HEME/ONC PROGRESS NOTE ---
DATE: 10/02/2017 DIAGNOSES: 1. Multiple myeloma. 2. Diverticulitis. SUBJECTIVE: Mj is a pleasant 57-year-old gentleman recently diagnosed with multiple myeloma. He had previously undergone T7 posterior laminectomy and debulking of an epidural lesion in 09/21/2017 at [facility]. Confirmation of diagnosis was made by Dr. Guzman and the patient will be arranged for an outpatient followup. He is pending discharge today. He seems to be ambulating with minimal assistance, tolerating his diet and is moving his bowels regularly. He had significant back pain overnight, did take pain medicine this morning and again, should be stable enough for discharge later on today. PHYSICAL EXAMINATION: GENERAL: He is in no acute distress. VITAL SIGNS: Temperature 36.6, pulse 85, respiratory rate 18, blood pressure 101/68. SKIN: Without rash or lesion. HEENT: Oral mucosa without erythema or ulceration. NECK: Supple. HEART: Regular rate and rhythm. LUNGS: Clear to auscultation. ABDOMEN: Soft, nontender, nondistended. EXTREMITIES: No clubbing, cyanosis or edema. NEUROLOGIC: Grossly intact. LABORATORY DATA: WBC count 5520, hemoglobin 11.5, platelet count 134,000. Sodium 136, potassium 4.1, chloride 104, carbon dioxide 25, BUN 9, creatinine 1.25, albumin 2.4, magnesium 2.0. IMPRESSION: 1. Diverticulitis. 2. Hypoalbuminemia attributable to multiple myeloma. 3. Hypomagnesemia (resolved). 4. Multiple myeloma. PLAN: Mr. Anders has a pending discharge today. We will pass along his personal information and arrange for expedient followup at [facility] next week to initiate induction therapy. Thank you again for assisting us in the care of this very pleasant gentleman. I will look forward to seeing him as an outpatient.
--- NOTE | 2017-10-02 10:22 | Progress Note ---
Subjective Date of Service: Oct 02, 2017. Subjective Pt evaluation today including: conversation w/ patient, physical exam, chart review, lab review The patient states he is feeling much better. He eating without difficulty. He denies any abdominal pain. He denies nausea vomiting or diarrhea. He has been on antibiotics since the and is tolerating well. His cultures were negative. His remaining review of systems is reviewed and is unremarkable. Problem List Medical Problems: (1) Dehydration Status: Acute (2) Rib pain on right side Status: Acute Objective Vital Signs Date Time Temp Pulse Resp B/P (MAP) Pulse Ox O2 Delivery O2 Flow Rate FiO2 10/02/17 08:11 36.5 85 16 113/74 (87) 96 Room Air 10/01/17 23:30 36.6 85 18 101/68 (79) 97 Room Air 10/01/17 19:42 36.4 99 19 103/70 (81) 96 Room Air 10/01/17 12:33 105 20 113/77 (89) 97 Room Air Physical Exam General Appearance: WD/WN, no apparent distress Eyes: normal inspection, EOMI Neck: supple Respiratory/Chest: lungs clear Cardiovascular: regular rate, rhythm, no edema Abdomen: non tender, soft Extremities: non-tender, no pedal edema Neurologic/Psychiatric: alert, oriented x 3 Skin: normal color Laboratory Results Item Value Date Time Blood Culture - Preliminary Resulted 09/27/17 1544 Blood NO GROWTH TO DATE. Blood Culture - Preliminary Resulted 09/27/17 1430 Blood NO GROWTH TO DATE. Last 24 Hours Test 10/01/17 21:36 10/02/17 05:45 Vancomycin Level Trough 20.1 mcg/ml White Blood Count 5.52 K/uL Red Blood Count 3.67 M/uL Hemoglobin 11.5 g/dL Hematocrit 33.4 % Mean Corpuscular Volume 91.0 fL Mean Corpuscular Hemoglobin 31.3 pg Mean Corpuscular Hemoglobin Concent 34.4 g/dl Platelet Count 134 K/uL Mean Platelet Volume 8.6 fL Neutrophils (%) (Auto) 59.6 % Lymphocytes (%) (Auto) 29.5 % Monocytes (%) (Auto) 8.2 % Eosinophils (%) (Auto) 1.6 % Basophils (%) (Auto) 0.2 % Neutrophils # (Auto) 3.29 K/uL Lymphocytes # (Auto) 1.63 K/uL Monocytes # (Auto) 0.45 K/uL Eosinophils # (Auto) 0.09 K/uL Basophils # (Auto) 0.01 K/uL RDW Standard Deviation 61.1 fL RDW Coefficient of Variation 18.4 % Immature Granulocyte % (Auto) 0.9 % Immature Granulocyte # (Auto) 0.05 K/uL Sodium Level 136 mmol/L Potassium Level 4.1 mmol/L Chloride Level 104 mmol/L Carbon Dioxide Level 25 mmol/L Anion Gap 7.0 mmol/L Blood Urea Nitrogen 9 mg/dl Creatinine 1.25 mg/dl Est Creatinine Clear Calc Drug Dose 67.2 ml/min Estimated GFR () 72.6 Estimated GFR (Non- 62.6 BUN/Creatinine Ratio 7.1 Random Glucose 85 mg/dl Calcium Level 8.5 mg/dl Magnesium Level 2.0 mg/dl Total Bilirubin 0.5 mg/dl Direct Bilirubin < 0.1 mg/dl Aspartate Amino Transf (AST/SGOT) 50 U/L Alanine Aminotransferase (ALT/SGPT) 41 U/L Alkaline Phosphatase 102 U/L Total Protein 8.9 gm/dl Albumin 2.4 gm/dl Assessment and Plan (1) Acute diverticulitis Assessment & Plan: Would continue current antibiotics while hospitalized. We did discuss IV versus p.o. antibiotics and he is not eager to be discharged home with a PICC line and IV antibiotics. I would give total of 10 days. Certainly if he does not wish to continue on his current course of he is to be discharged before 10 days of antibiotics he could be transitioned to Levaquin to complete course at home. Continued [facility] stay due to: abnormal vital signs, inadequate po fluid intake, inadequate oral pain control, voiding difficulties, ambulation difficulties, multiple IV medications needed Discharge planning: uncertain
[2017-10-02] MEDS ORDERED: LEVO1TAB34 PO (11:38)
[2017-10-02] MEDS ORDERED: ACET-1047 PO (11:38)
[2017-10-02] MEDS ORDERED: METO-478 PO (11:38)
--- NOTE | 2017-10-02 11:43 | Discharge Instructions ---
Discharge Instructions Date of Service Oct 02, 2017. Admission Reason for Admission: Multiple Myeloma, Sepsis, acute diverticulitis Discharge Discharge Diagnosis / Problem: Multiple Myeloma, Sepsis, acute diverticulitis Discharge Goals Goal(s): Improve disease control, Diagnostic testing, Therapeutic intervention Activity Recommendations Activity Limitations: per Instructions/Follow-up section (As per your spine surgeon from previous) Shower/Bathe: keep incision dry (No soaking in the tub, but you can shower) Driving or Machine Use: No driving until seen by your surgeon in follow-up . Instructions / Follow-Up Instructions / Follow-Up You were admitted with septic shock and acute diverticulitis. You were treated with antibiotics and had improvement. You have recently been diagnosed with multiple myeloma and need close follow-up with the oncologist early next week. They should be arranging that appointment for you. Please finish out the antibiotics for 4 more days as prescribed. He can continue the pain medication you were given from your spine surgeon. Please follow-up with the spine surgeon as previously scheduled. Follow-up with your PCP within 1-2 weeks. Current Hospital Diet Patient's current hospital diet: Low Fiber Diet Discharge Diet Recommended Diet: Low Fiber Diet (For 2 weeks and then gradually increase to a regular diet after that) Procedures Procedures Performed: Chest x-ray Head CT CT abdomen/pelvis CT chest Pending Studies Studies pending at discharge: no Medical Emergencies . Who to Call and When: Medical Emergencies: If at any time you feel your situation is an emergency, please call 911 immediately. . Non-Emergent Contact Non-Emergency issues call your: Primary Care Provider, Oncologist Call Non-Emergent contact if: you have a fever, temperature is above 100.5, your pain is not controlled, your pain is worsening, your pain is unusual for you, your pain is concerning you, wound has increased drainage, wound has increased redness, wound has increased pain, you have any medication questions . . "Provider Documentation" section prepared by Dayna Harvey. .
--- NOTE | 2017-10-02 11:53 | Discharge Summary ---
Discharge Summary Date of Service Oct 02, 2017. Discharge Summary Admission Date: Sep 27, 2017 at 19:35 Discharge Date: Oct 02, 2017 Discharge Disposition: Home with services Principal Diagnosis: Septic shock, acute diverticulitis Problems/Secondary Diagnoses: CAD with inferior [place] in 2000 Chronic systolic CHF with baseline EF 45% Ischemic cardiomyopathy Previous smoker with emphysema PAD status post aortobifemoral bypass Plasmablastic myeloma/lymphoma Recent surgical stabilization of pathologic T7 mass with compression on the spinal cord Anemia Acute metabolic encephalopathy Severe protein calorie malnutrition Hypoalbuminemia Hyponatremia Immunizations: Have You Had Influenza Vaccine: Unknown History of Tetanus Vaccine?: Unknown History of Pneumococcal: Unknown History of Hepatitis B Vaccine: Unknown Procedures: CT abdomen/pelvis CT chest Head CT Chest x-ray Echocardiogram Consultations: Hematology/oncology Critical care medicine Infectious disease General surgery Medication Reconciliation New Medications: Levofloxacin (Levaquin) 500 Mg Tab 1 TAB PO DAILY for 4 Days, #4 TAB Acetaminophen (Mapap) 325 Mg Tab 650 MG PO Q4H PRN for pain for 30 Days Changed Medications: Metoprolol Succinate (Toprol Xl) 25 Mg Tab 12.5 MG PO HS for 30 Days, TAB (Changed from: 25 MG) Continued Medications: Aspirin (Aspirin Ec) 81 Mg Tab 81 MG PO DAILY Garlic (Garlic) 500 Mg Cap 500 MG PO QAM [place]-3 Fatty Acids (Fish Oil) 1 Cap Cap 1 CAP PO QAM Oxycodone Hcl (Oxycodone Hcl) 10 Mg Tab 1 TAB PO Q4H PRN for Moderate Pain for 30 Days, #120 TAB Pravastatin Sodium (Pravachol) 20 Mg Tab 20 MG PO HS, TAB Sennosides-Docusate Sodium (Docusate Sodium/Senna) 1 Tab Tab 1 TAB PO BID Discontinued Medications: Cyclobenzaprine Hcl (Flexeril) 5 Mg Tab 5 MG PO BID PRN for Muscle Spasms, TAB PRN Discharge Exam Patient feeling well. He denies nausea or vomiting, which is moving his bowels , is tolerating a low fiber diet. No abdominal pain at all. Denies chest pain or shortness of breath. He is not lightheaded. He is ambulating with a walker without difficulty. He remains afebrile. Physical Exam General Appearance: WD/WN, no apparent distress (Sitting in chair) Eyes: normal inspection, sclerae normal ENT: hearing grossly normal Neck: trachea midline Respiratory/Chest: lungs clear, normal breath sounds, no respiratory distress, no accessory muscle use Cardiovascular: regular rate, rhythm, no edema, no murmur Abdomen: normal bowel sounds, non tender, soft Extremities: non-tender, normal inspection, no pedal edema, no calf tenderness Neurologic/Psychiatric: alert, normal mood/affect, oriented x 3 Skin: normal color, warm/dry, no rash, + pertinent finding (Thoracic spine incision with mild frandy-incisional edema improved from previous, no erythema or drainage) Review of Systems: Constitutional: No fever Eyes: No problem reported ENT: No problem reported Respiratory: No problem reported Cardiovascular: No problem reported Abdomen: No problem reported Musculoskeletal: + problem reported (Back pain at the site of surgery) Genitourinary - Male: No problem reported Neurologic: No problem reported Psychiatric: No problem reported Endocrine: No problem reported Hematologic / Lymphatic: No problem reported Integumentary: No problem reported Hospital Course This patient is a 57yo male with history of CAD with inferior [place] in 2000, chronic systolic CHF with baseline EF 45%, ischemic cardiomyopathy, previous smoker with emphysema, PAD status post aortobifemoral bypass, and recent diagnosis of Plasmablastic myeloma/lymphoma with surgery at [facility] last week for stabilization of a pathologic T7 mass with compression on the spinal cord. He underwent laminectomy with resection of the mass and ten stabilization. 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 CTs of his CAP also revealed widespread, though not bulky, lymphadenopathy. Bone marrow biopsy 09/23 confirmed myeloma, with plasma cells comprising 50% of marrow cellularity. He presented here with sweats, chills, left inguinal pain, and generalized weakness. He was found to have septic shock with most likely source being an acute sigmoid diverticulitis that was uncomplicated. There was no evidence of infection at the recent site of his surgery. 1. shock - likely septic - due to acute sigmoid diverticulitis? Transferred out of the ICU on 09/30. He did not require vasopressors. Continues to improve today with normal BPs and remains afebrile He has mild LV dysfunction on echo which is stable as per history from oncology , but no previous echo for comparison here. But there is no evidence of cardiogenic shock. Blood/urine cx's remain no growth to date U/a unremarkable. Prostate exam showed BPH but no prostatitis as per previous hospitalist Flu negative. -He received broad-spectrum IV abx (zosyn, vanco) and will transition to p.o. Levaquin finish out a 10 day course upon discharge. ID is following. 2. acute sigmoid diverticulitis - clinically improved with no abdominal pain today. -Appreciate general surgery consultation-they have signed off today and recommend follow-up in the surgery clinic in 2 weeks. -Tolerating low residue diet -Advance to regular diet in 2 weeks -Continue antibiotics as above 3. Acute metabolic encephalopathy - 2nd to #1 -resolved with treatment of sepsis CT head w/o acute findings. 4. anemia - Hb was 10.1 prior to transfer to [place] 10 days ago. The acute drop to the 6's likely represented copious phlebotomy, bone marrow suppression from infection, and recent blood loss from surgery. He is s/p 4 units of PRBCs this admission with stable H/H today at 11. Hemoccult was negative at admission. -Follow CBC 5. severe protein calorie malnutrition/hypoalbuminemia albumin is <2.- secondary to multiple myeloma and recent illness 6. Plasmablastic multiple myeloma with surgery at [facility] last week for stabilization of a pathologic T7 mass with compression on the spinal cord. He underwent laminectomy with resection of the mass and ten stabilization. 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 CTs of his CAP also revealed widespread, though not bulky, lymphadenopathy. Also with widespread lytic bone lesions. Bone marrow biopsy 09/23 confirmed myeloma, with plasma cells comprising 50% of marrow cellularity. Heme/onc consultation appreciated. -Follow-up with hematology/oncology in the clinic after discharge and recovery from diverticulitis -Continue pain meds for recent back surgery and will need follow-up with his surgeon as previously scheduled after discharge 7. DVT proph - lovenox. 8. hyponatremia - due to volume depletion/dehydration. Resolved with hydration 9. CAD/chronic systolic CHF - EF 45% - appears to have ischemic cardiomyopathy with wall motion abnormalities. This is chronic as per oncology note who has access to [place] medical records. -Home metoprolol is on hold for hypotension, will restart on discharge at a reduced dose of 12.5 mg once daily -Should likely be on an FATOUMATA inhibitor or ARB, but will defer to cardiology as an outpatient -he is compensated from a CHF standpoint today. -Continue statin -Aspirin on hold but will restart upon discharge Disposition-PT/OT consults recommend return to home with home health today Total Time Spent: Greater than 30 minutes This includes examination of the patient, discharge planning, medication reconciliation, and communication with other providers. Discharge Instructions Please refer to the electronic Patient Visit Report (Discharge Instructions) for additional information. Follow-Up With oncology within 1 week With PCP within 1-2 weeks With spine surgeon as previously arranged With general surgery in 2 weeks Additional Copies To Gregory Smith D.O.; Valeria Lackey, [email or web address].
[2017-10-02 12:02] VITALS: BP 99/67; PULSE 98; TEMP 36.4; O2SAT 95
[2017-10-02 12:41] VITALS: BP 99/67; PULSE 98; TEMP 36.4; O2SAT 95
[2017-10-02] MEDS ORDERED: VANCOMYCIN INJ 1,500 MG in SODIUM CHLORIDE 0.9% 500ML 500 ML IV SCH (14:00)
[2017-10-04] MEDS ORDERED: VANCOMYCIN TROUGH ONE (07:30)
== END 2017-10-02 14:32 | disposition home health service (06) | DRG 871 ==
LOC: C.EDB 13:37 → C.2E 19:35 → ENRESERV 19:43 → C.MSICU 09-28 09:06 → ENRESERV 09-30 09:01 → C.4E 09-30 09:04
PROVIDERS: ADMIT Hospitalist; ATTEND Family Medicine
PROC: 02HV33Z Insertion of Infusion Device into Superior Vena Cava, Percutaneous Approach (ICD-10-PCS; principal; 2017-09-27)
DX: A41.9 Sepsis, unspecified organism (principal); R65.21 Severe sepsis with septic shock; K57.32 Diverticulitis of large intestine without perforation or abscess without bleeding; C90.00 Multiple myeloma not having achieved remission; I50.22 Chronic systolic (congestive) heart failure; G93.41 Metabolic encephalopathy; E43 Unspecified severe protein-calorie malnutrition; E87.1 Hypo-osmolality and hyponatremia; E87.2 Acidosis; Z87.891 Personal history of nicotine dependence; Z88.8 Allergy status to other drugs, medicaments and biological substances; E86.0 Dehydration; Z79.82 Long term (current) use of aspirin; I25.2 Old myocardial infarction; I25.10 Atherosclerotic heart disease of native coronary artery without angina pectoris; I25.5 Ischemic cardiomyopathy; J43.9 Emphysema, unspecified; E88.09 Other disorders of plasma-protein metabolism, not elsewhere classified; Z98.1 Arthrodesis status; E83.42 Hypomagnesemia

== ENCOUNTER 2017-10-16 11:23 | Inpatient (IN) | payer OTHER ==
[~2017-10-16] VITALS: Ht 177.8 cm; Wt 79.2 kg
[~2017-10-16 11:23] MED LIST changes: +ACET-1047 PO; -CEFD1CAP14 PO; -IBUP1TAB PO; -LISI-791 PO; +OXYC-164 PO; -OXYC-57 PO; -OXYC1TAB3 PO; +SENN8.6T36 PO
[2017-10-16] MEDS ORDERED: SODIUM CHLORIDE 0.9% 1000ML 1,000 ML IV STA (12:07)
[2017-10-16] MEDS ORDERED: MoRPHine SULFATE 10 MG/ML CARP/VIAL IV STA (12:07)
[2017-10-16] MEDS ORDERED: OPTIRAY 320 IV PRN (12:15)
--- NOTE | 2017-10-16 12:48 | DIAGNOSTIC IMAGING REPORT ---
CHEST ONE VIEW PORTABLE CLINICAL HISTORY: CHEST PAIN dyspnea COMPARISON STUDY: 09/27/2017 FINDINGS: Mild bibasilar interstitial change considered chronic. The mid and upper lungs are clear. Stable postoperative changes to the mid thoracic region. Baseline emphysematous changes are stable. IMPRESSION: Chronic and emphysematous change. No acute process. The above report was generated using voice recognition software. It may contain grammatical, syntax or spelling errors. Electronically signed by: Mohit Winchester M.D. 10/16/2017 12:47 PM Dictated Date/Time: 10/16/2017 12:46 PM
[2017-10-16 12:50] LABS: BASO % 0.2 %; BASO ABS # 0.01 K/uL (0-0.2); EOS % 3.1 %; EOS ABS # 0.16 K/uL (0-0.5); HEMATOCRIT 31.4 % (42-52); IG# 0.06 K/uL (0.00-0.02); LYMPH % 37.2 %; LYMPH ABS # 1.92 K/uL (1.2-3.4); MEAN CELL VOLUME 89.7 fL (80-100); MEAN CORPUSCULAR HEMOGLOBIN 31.4 pg (25-34); MEAN PLATELET VOLUME 8.5 fL (7.4-10.4); MONO % 13.8 %; MONO ABS # 0.71 K/uL (0.11-0.59); NEUT % 44.5 %; PLATELET COUNT 168 K/uL (130-400); RED CELL DISTRIBUTION WIDTH CV 17.9 % (11.5-14.5); RED CELL DISTRIBUTION WIDTH SD 58.7 fL (36.4-46.3); WHITE BLOOD COUNT 5.16 K/uL (4.8-10.8)
[2017-10-16 13:04] LABS: ALBUMIN 2.7 gm/dl (3.4-5.0); ALT/SGPT 33 U/L (12-78); AST/SGOT 29 U/L (15-37); BLOOD UREA NITROGEN 16 mg/dl (7-18); CALCIUM 9.6 mg/dl (8.5-10.1); CARBON DIOXIDE 24 mmol/L (21-32); CREATININE 1.53 mg/dl (0.60-1.40); GLUCOSE 122 mg/dl (70-99); LIPASE 134 U/L (73-393); POTASSIUM 3.6 mmol/L (3.5-5.1); SODIUM 135 mmol/L (136-145)
[2017-10-16 13:09] LABS: ALKALINE PHOSPHATASE 103 U/L (45-117); TOTAL PROTEIN 11.9 gm/dl (6.4-8.2)
[2017-10-16] MEDS ORDERED: PRAV80TA PO (13:49)
[2017-10-16] MEDS ORDERED: HYDR25CA PO (13:49)
[2017-10-16] MEDS ORDERED: CHOL1000 PO (13:49)
--- NOTE | 2017-10-16 14:20 | DIAGNOSTIC IMAGING REPORT ---
ADDENDUM ADDENDUM: The patient reports significant pain of the right scapula. There are several scapular lesions identified. The largest lesion is seen in the lateral aspect of the scapular spine on image #266 and measures 1.8 cm. Additional smaller lesions are identified in the glenoid, along the superior margin of the scapula, and the inferior scapular spine. There is no pathologic fracture identified. There is a chronic appearing pathologic fracture of the right posterior 10th rib seen on image #18. Numerous additional right-sided rib lesions are also identified without pathologic fracture at this time. Electronically signed by: Mansoor Negro M.D. 10/17/2017 10:14 AM Dictated Date/Time: 10/17/2017 10:12 AM ORIGINAL REPORT (CHEST FOR PE) ANGIO WITH CT DOSE: 1186.10 mGy.cm HISTORY: Chest pain dyspnea TECHNIQUE: Multiaxial CT images of the chest were performed following the intravenous administration of contrast to evaluate the pulmonary arteries. Maximal intensity projection images were also obtained. A dose lowering technique was utilized adhering to the principles of ALARA. COMPARISON STUDY: 09/27/2017 FINDINGS: Pulmonary vasculature enhances appropriately. There are no significant filling defects. Hilar and mediastinal adenopathy is generally stable compared to the prior exam. Moderate atherosclerotic change thoracic aorta is similar. Bibasilar focal regions of pleural thickening and atelectasis are similar. There are no new or interval findings. Extensive bony lytic changes noted throughout all major visualized osseous structures. This is similar. Slightly progressive bony erosive changes of the T3 vertebral body with significant loss of bone substance anteriorly. Moderate surrounding soft tissue component somewhat progressive from the prior study. Alpesh stabilization procedure of the mid thoracic region unchanged. IMPRESSION: 1. Study is negative for pulmonary embolus. 2. Scattered bibasilar parenchymal and atelectatic changes are similar. 3. Mediastinal adenopathy is stable. 4. Diffuse lytic changes throughout all major osseous components consistent with diffuse metastatic bony change. 5. Progressive destruction compared to the prior study of the anterior margin of T3 with a associated soft tissue component The above report was generated using voice recognition software. It may contain grammatical, syntax or spelling errors. Electronically signed by: Mohit Winchester M.D. 10/16/2017 2:19 PM Dictated Date/Time: 10/16/2017 2:08 PM
--- NOTE | 2017-10-16 14:27 | DIAGNOSTIC IMAGING REPORT ---
CT SCAN OF THE ABDOMEN AND PELVIS WITH IV CONTRAST CLINICAL HISTORY: Generalized abdominal pain. Back pain. Reported history of multiple myeloma. COMPARISON STUDY: Abdominal CT dated 09/27/2017. TECHNIQUE: Following the IV administration of 119 cc of Optiray 320, CT scan of the abdomen and pelvis is performed from the lung bases to the proximal femora. Images are reviewed in the axial, sagittal, and coronal planes. IV contrast was administered without complication. A dose lowering technique was utilized adhering to the principles of ALARA. The examination is degraded by streak artifact from the patient's right arm which could not be elevated above the abdomen. FINDINGS: Lung bases: The heart is top normal in size and without pericardial effusion. There are coronary artery calcifications. A tiny hiatal hernia is identified. Emphysema is noted. There is bibasilar scarring/atelectasis. No airspace consolidation is seen typical for pneumonia and there is no pleural effusion. Liver: The contrast-enhanced liver is normal in size, contour, and attenuation. There is no intrahepatic biliary ductal dilatation. The hepatic veins and portal veins are patent. A calcified granuloma is noted in the right lobe. A subcentimeter hypodensity in the left lobe on image #86 likely represents a cyst but is too small for definitive characterization. This is unchanged from previous. Gallbladder: Unremarkable. Spleen: Normal in size and attenuation, measuring 11.0 cm in length. Pancreas: Unremarkable. Adrenal glands: Unremarkable. Kidneys: The contrast enhanced kidneys demonstrate cortical atrophy and are without hydronephrosis. The kidneys enhance symmetrically. There is a 2 mm nonobstructing left renal calculus. Abdominal vasculature: There is advanced atherosclerotic calcification of the abdominal aorta. There is an aortobiiliac bypass graft. The bypass is widely patent. The ione common iliac arteries appears thrombosed. Bowel: There is moderate sigmoid diverticulosis with evidence of mild acute sigmoid diverticulitis. This has improved from 09/27/2017. No evidence of abscess is identified. No bowel obstruction is seen. The appendix is well-visualized and normal. Peritoneum: There is no intraperitoneal free air or abdominal ascites. There is a small fat-containing umbilical hernia. Lymphadenopathy: Upper abdominal and retroperitoneal lymphadenopathy is similar to previous. A right cardiophrenic node on image #28 measures 2.8 x 1.8 cm. A portacaval node on image #98 measures 3.8 x 3.8 cm. An aortocaval node on image #158 measures 2.1 x 1.5 cm. There are mildly enlarged iliac chain nodes. No inguinal adenopathy is seen. Pelvic viscera: The the prostate gland is normal in size and heterogeneous. The bladder is normal as visualized. Skeletal structures: The skeletal structures are osteopenic. Extensive/multifocal osteolytic metastatic disease is identified throughout all the visualized bony structures. There is a mild chronic compression deformity of L5. There is a minimal superior endplate compression deformity of L2. This appears new from 09/27/2017. A large osteolytic lesion in the medial left ilium measures 5.4 x 3.2 cm. Lesions are also identified within the proximal femora bilaterally. Lesions in the left femoral neck may place the patient at risk for insufficiency fracture. There is minimal epidural extension from a lesion in the posterior aspect of L5 seen on axial image #253. IMPRESSION: 1. 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 2. There is a minimal superior endplate compression deformity of L2. This appears new from 09/27/2017 and is likely acute. 3. A large osteolytic lesion is seen in the medial left ilium. Additionally, lesions are present within proximal femora including the left femoral neck. Note that these lesions may be at risk for insufficiency fracture. 4. There is minimal epidural extension of a lesion within the right posterior aspect of the L5 vertebral body. This does not cause significant acquired compromise of the central canal at this time. 5. Abdominal and retroperitoneal lymphadenopathy is similar to the 09/27/2017 examination. 6. There is evidence of resolving diverticulitis of the sigmoid colon. This has improved from 09/27/2017. 7. Emphysema. 8. Additional findings as above. Electronically signed by: Mansoor Negro M.D. 10/16/2017 2:26 PM Dictated Date/Time: 10/16/2017 2:08 PM
--- NOTE | 2017-10-16 16:29 | EMERGENCY ROOM VISIT NOTE ---
History Report prepared by Juan Luis: Ashley Mcdowell Under the Supervision of: Dr. Lefty Bhat M.D. First contact with patient: 11:55 Chief Complaint: REFERRED BY DOCTOR Stated Complaint: REFERRED BY JESICA MYOLEMA-SEVERE BACK,RIB,SHOUL History of Present Illness The patient is a 57 year old male who presents to the Emergency Room with complaints of worsening right shoulder pain starting 1 week ago. The pain is worst in his right shoulder blade. The pain wraps around to the front. The patient has a history of multiple myeloma which was diagnosed around 1 month ago. The patient had back surgery 1 month ago. He has been able to walk since the surgery, but the past couple of days the pain has become more severe to the point he is having difficulty getting out of bed. The surgery seems to be healing well, but he is still having back pain. He is taking his pain medications to no significant relief. His blood pressure has been high and he has been diaphoretic. He has been SOB with the pain. He denies any nausea vomiting, diarrhea, fever, chills, cough, congestion, abdominal pain, headache, dizziness, change in vision, or burning with urination. He is on a stool softener. He had a bowel movement last night. He denies any trouble urinating. The patient is starting chemo in 4 days. He had diverticulitis a couple weeks ago for which he finished his antibiotics. Source of History: patient, family Onset: 1 week ago Position: shoulder (right) Symptom Intensity: 10/10 Quality: other (pain) Timing: worsening Associated Symptoms: + diaphoresis, + SOB, + back pain, No fevers, No chills , No headache, No cough, No nausea, No vomiting, No abdominal pain, No urinary symptoms Review of Systems See HPI for pertinent positives and negatives. A total of ten systems were reviewed and were otherwise negative. Past Medical & Surgical Medical Problems: (1) Acute diverticulitis (2) COPD (chronic obstructive pulmonary disease) with emphysema (3) Hypertension (4) Multiple myeloma (5) Peripheral arterial disease (6) Recent spinal surgery (7) Sepsis (8) Septic shock (9) Tobacco abuse Family History Cancer Social History Smoking Status: Unknown if Ever Smoked Drug Use: none Marital Status: Housing Status: lives with family Occupation Status: employed Current/Historical Medications Scheduled Aspirin (Aspirin Ec), 81 MG PO DAILY Cholecalciferol (Vitamin D3), 1 TAB PO DAILY Garlic (Garlic), 1,000 MG PO QAM Hydroxyzine Pamoate (Vistaril), 2 CAP PO HS [place]-3 Fatty Acids (Fish Oil), 1 CAP PO QAM Pravastatin Sodium (Pravachol), 1 TAB PO DAILY Sennosides-Docusate Sodium (Docusate Sodium/Senna), 1 TAB PO BID Scheduled PRN Oxycodone Hcl (Oxycodone Hcl), 1 TAB PO Q4H PRN for Moderate Pain Allergies Coded Allergies: Atorvastatin (Verified Adverse Reaction, Unknown, myalgias, 10/16/17) Simvastatin (Verified Adverse Reaction, Unknown, myalgias, 10/16/17) Physical Exam Vital Signs Date Time Temp Pulse Resp B/P (MAP) Pulse Ox O2 Delivery O2 Flow Rate FiO2 10/16/17 17:01 125/86 10/16/17 17:00 100 16 94 Nasal Cannula 2.0 10/16/17 16:31 138/92 10/16/17 16:30 109 19 96 Nasal Cannula 2.0 10/16/17 16:01 128/90 10/16/17 16:00 104 14 97 Nasal Cannula 2.0 10/16/17 15:46 97 Nasal Cannula 2.0 10/16/17 15:31 147/95 10/16/17 15:30 109 17 10/16/17 15:01 121/78 10/16/17 15:00 108 14 10/16/17 14:30 105 18 114/73 95 Nasal Cannula 2.0 10/16/17 14:07 113/75 10/16/17 13:01 116/74 10/16/17 13:00 114 16 93 Nasal Cannula 2.0 10/16/17 12:38 116 10/16/17 12:36 94 Nasal Cannula 2.0 10/16/17 12:35 112 18 117/81 90 Room Air 10/16/17 12:25 90 Room Air 10/16/17 11:25 36.4 136 20 128/88 96 Physical Exam GENERAL: Awake, alert, uncomfortable-appearing, in no distress HENT: Normocephalic, atraumatic. Dry mucous membranes. EYES: Normal conjunctiva. Sclera non-icteric. NECK: Supple. No nuchal rigidity. FROM. No JVD. RESPIRATORY: Clear to auscultation. CARDIAC: Regular rate, normal rhythm. Extremities warm and well perfused. Pulses equal. ABDOMEN: Soft, non-distended. No tenderness to palpation. No rebound or guarding. No masses. RECTAL: Deferred. MUSCULOSKELETAL: Chest examination reveals no tenderness. The back is symmetrical on inspection without obvious abnormality. Tenderness along the posterior aspect of the right scapula. Mild tenderness throughout the thoracic spine. There is no CVA tenderness to palpation. No joint edema. LOWER EXTREMITIES: Calves are equal size bilaterally and non-tender. No edema. No discoloration. NEURO: Normal sensorium. No sensory or motor deficits noted. 5/5 strength BLE and BUEs SKIN: No rash or jaundice noted. Medical Decision & Procedures ER Provider Diagnostic Interpretation: Radiology results as stated below per my review and radiologist interpretation: CHEST ONE VIEW PORTABLE CLINICAL HISTORY: CHEST PAIN dyspnea COMPARISON STUDY: 09/27/2017 FINDINGS: Mild bibasilar interstitial change considered chronic. The mid and upper lungs are clear. Stable postoperative changes to the mid thoracic region. Baseline emphysematous changes are stable. IMPRESSION: Chronic and emphysematous change. No acute process. The above report was generated using voice recognition software. It may contain grammatical, syntax or spelling errors. Electronically signed by: Mohit Winchester M.D. 10/16/2017 12:47 PM Dictated Date/Time: 10/16/2017 12:46 PM (CHEST FOR PE) ANGIO WITH CT DOSE: 1186.10 mGy.cm HISTORY: Chest pain dyspnea TECHNIQUE: Multiaxial CT images of the chest were performed following the intravenous administration of contrast to evaluate the pulmonary arteries. Maximal intensity projection images were also obtained. A dose lowering technique was utilized adhering to the principles of ALARA. COMPARISON STUDY: 09/27/2017 FINDINGS: Pulmonary vasculature enhances appropriately. There are no significant filling defects. Hilar and mediastinal adenopathy is generally stable compared to the prior exam. Moderate atherosclerotic change thoracic aorta is similar. Bibasilar focal regions of pleural thickening and atelectasis are similar. There are no new or interval findings. Extensive bony lytic changes noted throughout all major visualized osseous structures. This is similar. Slightly progressive bony erosive changes of the T3 vertebral body with significant loss of bone substance anteriorly. Moderate surrounding soft tissue component somewhat progressive from the prior study. Alpesh stabilization procedure of the mid thoracic region unchanged. IMPRESSION: 1. Study is negative for pulmonary embolus. 2. Scattered bibasilar parenchymal and atelectatic changes are similar. 3. Mediastinal adenopathy is stable. 4. Diffuse lytic changes throughout all major osseous components consistent with diffuse metastatic bony change. 5. Progressive destruction compared to the prior study of the anterior margin of T3 with a associated soft tissue component The above report was generated using voice recognition software. It may contain grammatical, syntax or spelling errors. Electronically signed by: Mohit Winchester M.D. 10/16/2017 2:19 PM Dictated Date/Time: 10/16/2017 2:[address] SCAN OF THE ABDOMEN AND PELVIS WITH IV CONTRAST CLINICAL HISTORY: Generalized abdominal pain. Back pain. Reported history of multiple myeloma. COMPARISON STUDY: Abdominal CT dated 09/27/2017. TECHNIQUE: Following the IV administration of 119 cc of Optiray 320, CT scan of the abdomen and pelvis is performed from the lung bases to the proximal femora. Images are reviewed in the axial, sagittal, and coronal planes. IV contrast was administered without complication. A dose lowering technique was utilized adhering to the principles of ALARA. The examination is degraded by streak artifact from the patient's right arm which could not be elevated above the abdomen. FINDINGS: Lung bases: The heart is top normal in size and without pericardial effusion. There are coronary artery calcifications. A tiny hiatal hernia is identified. Emphysema is noted. There is bibasilar scarring/atelectasis. No airspace consolidation is seen typical for pneumonia and there is no pleural effusion. Liver: The contrast-enhanced liver is normal in size, contour, and attenuation. There is no intrahepatic biliary ductal dilatation. The hepatic veins and portal veins are patent. A calcified granuloma is noted in the right lobe. A subcentimeter hypodensity in the left lobe on image #86 likely represents a cyst but is too small for definitive characterization. This is unchanged from previous. Gallbladder: Unremarkable. Spleen: Normal in size and attenuation, measuring 11.0 cm in length. Pancreas: Unremarkable. Adrenal glands: Unremarkable. Kidneys: The contrast enhanced kidneys demonstrate cortical atrophy and are without hydronephrosis. The kidneys enhance symmetrically. There is a 2 mm nonobstructing left renal calculus. Abdominal vasculature: There is advanced atherosclerotic calcification of the abdominal aorta. There is an aortobiiliac bypass graft. The bypass is widely patent. The deering common iliac arteries appears thrombosed. Bowel: There is moderate sigmoid diverticulosis with evidence of mild acute sigmoid diverticulitis. This has improved from 09/27/2017. No evidence of abscess is identified. No bowel obstruction is seen. The appendix is well-visualized and normal. Peritoneum: There is no intraperitoneal free air or abdominal ascites. There is a small fat-containing umbilical hernia. Lymphadenopathy: Upper abdominal and retroperitoneal lymphadenopathy is similar to previous. A right cardiophrenic node on image #28 measures 2.8 x 1.8 cm. A portacaval node on image #98 measures 3.8 x 3.8 cm. An aortocaval node on image #158 measures 2.1 x 1.5 cm. There are mildly enlarged iliac chain nodes. No inguinal adenopathy is seen. Pelvic viscera: The the prostate gland is normal in size and heterogeneous. The bladder is normal as visualized. Skeletal structures: The skeletal structures are osteopenic. Extensive/multifocal osteolytic metastatic disease is identified throughout all the visualized bony structures. There is a mild chronic compression deformity of L5. There is a minimal superior endplate compression deformity of L2. This appears new from 09/27/2017. A large osteolytic lesion in the medial left ilium measures 5.4 x 3.2 cm. Lesions are also identified within the proximal femora bilaterally. Lesions in the left femoral neck may place the patient at risk for insufficiency fracture. There is minimal epidural extension from a lesion in the posterior aspect of L5 seen on axial image #253. IMPRESSION: 1. 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 2. There is a minimal superior endplate compression deformity of L2. This appears new from 09/27/2017 and is likely acute. 3. A large osteolytic lesion is seen in the medial left ilium. Additionally, lesions are present within proximal femora including the left femoral neck. Note that these lesions may be at risk for insufficiency fracture. 4. There is minimal epidural extension of a lesion within the right posterior aspect of the L5 vertebral body. This does not cause significant acquired compromise of the central canal at this time. 5. Abdominal and retroperitoneal lymphadenopathy is similar to the 09/27/2017 examination. 6. There is evidence of resolving diverticulitis of the sigmoid colon. This has improved from 09/27/2017. 7. Emphysema. 8. Additional findings as above. Electronically signed by: Mansoor Negro M.D. 10/16/2017 2:26 PM Dictated Date/Time: 10/16/2017 2:08 PM Laboratory Results 10/16/17 12:25 Red Blood Count 3.50, Mean Corpuscular Volume 89.7, Mean Corpuscular Hemoglobin 31.4, Mean Corpuscular Hemoglobin Concent 35.0, Mean Platelet Volume 8.5, Neutrophils (%) (Auto) 44.5, Lymphocytes (%) (Auto) 37.2, Monocytes (%) (Auto) 13.8, Eosinophils (%) (Auto) 3.1, Basophils (%) (Auto) 0.2, Neutrophils # (Auto ) 2.30, Lymphocytes # (Auto) 1.92, Monocytes # (Auto) 0.71, Eosinophils # (Auto ) 0.16, Basophils # (Auto) 0.01 10/16/17 12:25 Test 10/16/17 12:25 10/16/17 15:40 White Blood Count 5.16 K/uL (4.8-10.8) Red Blood Count 3.50 M/uL (4.7-6.1) Hemoglobin 11.0 g/dL (14.0-18.0) Hematocrit 31.4 % (42-52) Mean Corpuscular Volume 89.7 fL (80-100) Mean Corpuscular Hemoglobin 31.4 pg (25-34) Mean Corpuscular Hemoglobin Concent 35.0 g/dl (32-36) Platelet Count 168 K/uL (130-400) Mean Platelet Volume 8.5 fL (7.4-10.4) Neutrophils (%) (Auto) 44.5 % Lymphocytes (%) (Auto) 37.2 % Monocytes (%) (Auto) 13.8 % Eosinophils (%) (Auto) 3.1 % Basophils (%) (Auto) 0.2 % Neutrophils # (Auto) 2.30 K/uL (1.4-6.5) Lymphocytes # (Auto) 1.92 K/uL (1.2-3.4) Monocytes # (Auto) 0.71 K/uL (0.11-0.59) Eosinophils # (Auto) 0.16 K/uL (0-0.5) Basophils # (Auto) 0.01 K/uL (0-0.2) RDW Standard Deviation 58.7 fL (36.4-46.3) RDW Coefficient of Variation 17.9 % (11.5-14.5) Immature Granulocyte % (Auto) 1.2 % Immature Granulocyte # (Auto) 0.06 K/uL (0.00-0.02) Prothrombin Time 11.3 SECONDS (9.0-12.0) Prothromb Time International Ratio 1.1 (0.9-1.1) Anion Gap 8.0 mmol/L (3-11) Est Creatinine Clear Calc Drug Dose 52.0 ml/min Estimated GFR () 56.8 Estimated GFR (Non- 49.0 BUN/Creatinine Ratio 10.4 (10-20) Calcium Level 9.6 mg/dl (8.5-10.1) Total Bilirubin 0.3 mg/dl (0.2-1) Direct Bilirubin 0.1 mg/dl (0-0.2) Aspartate Amino Transf (AST/SGOT) 29 U/L (15-37) Alanine Aminotransferase (ALT/SGPT) 33 U/L (12-78) Alkaline Phosphatase 103 U/L (45-117) Troponin I < 0.015 ng/ml (0-0.045) Pro-B-Type Natriuretic Peptide 1763 pg/ml (0-900) Total Protein 11.9 gm/dl (6.4-8.2) Albumin 2.7 gm/dl (3.4-5.0) Lipase 134 U/L (73-393) Urine Color YELLOW Urine Appearance CLEAR (CLEAR) Urine pH 5.0 (4.5-7.5) Urine Specific [place] > 1.045 (1.000-1.030) Urine Protein NEG (NEG) Urine Glucose (UA) NEG (NEG) Urine Ketones NEG (NEG) Urine Occult Blood NEG (NEG) Urine Nitrite NEG (NEG) Urine Bilirubin NEG (NEG) Urine Urobilinogen NEG (NEG) Urine Leukocyte Esterase NEG (NEG) Laboratory results reviewed by me Medications Administered Medications (Trade) Dose Ordered Sig/Malik Route Start Time Stop Time Status Last Admin Dose Admin Morphine Sulfate (MoRPHine SULFATE INJ) 8 mg NOW STAT IV 10/16/17 12:07 10/16/17 12:10 DC 10/16/17 12:32 8 MG Sodium Chloride 1,000 ml @ 999 mls/hr Q1H1M STAT IV 10/16/17 12:07 10/16/17 13:07 DC 10/16/17 12:32 999 MLS/HR ECG Per My Interpretation Indication: back/shoulder pain Rate (beats per minute): 114 Rhythm: sinus tachycardia Findings: no acute ischemic change, other (normal axis) Comparison ECG Date: 29-Sep-2017 Change: Similar to prior. ED Course 1156: The patient was evaluated in room B6. A complete history and physical exam was performed. 1518: Upon reexamination, the patient was stable. I discussed the test results and treatment plan with him and his family. The patient will be evaluated for further management. 1524: Dr. Smith was paged. 1606: I discussed the patient with Dr. Layne, [facility] [place] hospitalist - She will evaluate the patient for further treatment. Medical Decision I reviewed the patient's past medical history, medications, and the nursing notes as described above. Differential diagnosis: Etiologies such as worsening malignancy, cardiac ischemia, aortic dissection, pulmonary embolism, pneumonia, pneumothorax, musculoskeletal, infections, pericarditis, myocarditis, esophageal rupture, gastrointestinal, as well as others were entertained. 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 On arrival the patient is in mild pain distress, otherwise afebrile, heart rate in the 100s, blood pressure stable. Labs demonstrate mild dehydration with a creatinine slightly increased from recent at 1.[address] scan of the chest abdomen pelvis negative for PE however does show extensive bony lesions consistent with the patient's multiple myeloma. Given the patient's significant discomfort and mild dehydration in the setting of his multiple myeloma it is reasonable to admit the patient for pain control and hydration to help optimize the patient for his treatments that will begin on Friday. Case was discussed with Dr. Layne, [facility] [place] hospitalist, who will admit the patient for further management. Medication Reconcilliation Current Medication List: was personally reviewed by la Blood Pressure Screening Patient's blood pressure: Normal blood pressure Blood pressure disposition: Did not require urgent referral Consults Time Called: 1546 Consulting Physician: Dr. Layne, [facility] [place] hospitalist Returned Call: 1602 I discussed the patient with her - She will evaluate the patient for further treatment. Impression Primary Impression: Dehydration Additional Impression: Multiple myeloma Scribe Attestation The scribe's documentation has been prepared under my direction and personally reviewed by me in its entirety. I confirm that the note above accurately reflects all work, treatment, procedures, and medical decision making performed by me. Departure Information Dispostion Being Evaluated By Hospitalist Referrals No Doctor, Assigned (PCP) Patient Instructions My [facility] Problem Qualifiers
[2017-10-16] MEDS ORDERED: MAGNESIUM HYDROXIDE SUSP 30 ML UDC PO PRN (17:30)
[2017-10-16] MEDS ORDERED: ACETAMINOPHEN 325 MG TAB PO PRN (17:30)
[2017-10-16] MEDS ORDERED: ONDANSETRON INJ 2 MG/ML 2 ML VIAL IV PRN (17:30)
[2017-10-16] MEDS ORDERED: HYDROmorphone INJ 0.5 MG/0.5 ML SYR IV PRN (17:30)
--- NOTE | 2017-10-16 17:44 | History and Physical ---
History & Physical Date & Time of Service: Oct 16, 2017 at 17:32 Chief Complaint: Referred By Gino Myolema-Severe Back,Rib,Shoul Primary Care Physician: No Doctor, Assigned History of Present Illness Source: patient, spouse 57 y/o M c/o worsening R shoulder pain. Pt states that he has been having pain in his back for some time now. He woke in the middle of the night last week and noted that his R shoulder was much worse suddenly and this has continued to worsen since that time. He has oxycontin 10mg Q4hr but this was not helping once the R shoulder pain worsened. At times the pain is so intense that it causes him SOB. He does not have SOB otherwise. His pain is so intense that he cannot get out of bed or even off of the couch without full assistance. He had alternating sweats and chills last Friday and did not sleep much. He has had decreased appetite for the last few days and has taken minimal PO. No abd pain, n/v. He has been constipated with the increase in pain medications. He does take stool softeners BID and has had small amount of stool, but not his usual. He was called today by Pain Management on [address] to set up and appt for later this week as a new pt. Pt was given morphine in the ED and feels somewhat improved at this time. Still with pain though. Pt denies fever, chest pain, LE pain or swelling. Pt was recently dx with multiple myeloma and has known lytic lesions. He is to start chemo this coming Friday with Dr. Smith. Past Medical/Surgical History Hyperlipidemia Hx of [place] 2010, s/p stent Family History Family history was reviewed; no changes noted. Social History Smoking Status: Former Smoker (quit "a couple of years ago") Alcohol Use: none Drug Use: none Marital Status: Housing status: lives with family Occupational Status: employed Immunizations History of Influenza Vaccine: Unknown History of Tetanus Vaccine?: Unknown History of Pneumococcal: Unknown History of Hepatitis B Vaccine: Unknown Allergies Coded Allergies: Atorvastatin (Verified Adverse Reaction, Unknown, myalgias, 10/16/17) Simvastatin (Verified Adverse Reaction, Unknown, myalgias, 10/16/17) Home Medications Scheduled Aspirin (Aspirin Ec), 81 MG PO DAILY Cholecalciferol (Vitamin D3), 1 TAB PO DAILY Garlic (Garlic), 1,000 MG PO QAM Hydroxyzine Pamoate (Vistaril), 2 CAP PO HS [place]-3 Fatty Acids (Fish Oil), 1 CAP PO QAM Pravastatin Sodium (Pravachol), 1 TAB PO DAILY Sennosides-Docusate Sodium (Docusate Sodium/Senna), 1 TAB PO BID Scheduled PRN Oxycodone Hcl (Oxycodone Hcl), 1 TAB PO Q4H PRN for Moderate Pain Review of Systems Pertinent positives and negatives reviewed in HPI--all others negative Physical Exam Vital Signs Date Time Temp Pulse Resp B/P (MAP) Pulse Ox O2 Delivery O2 Flow Rate FiO2 10/16/17 17:01 125/86 10/16/17 17:00 100 16 94 Nasal Cannula 2.0 10/16/17 16:31 138/92 10/16/17 16:30 109 19 96 Nasal Cannula 2.0 10/16/17 16:01 128/90 10/16/17 16:00 104 14 97 Nasal Cannula 2.0 10/16/17 15:46 97 Nasal Cannula 2.0 10/16/17 15:31 147/95 10/16/17 15:30 109 17 10/16/17 15:01 121/78 10/16/17 15:00 108 14 10/16/17 14:30 105 18 114/73 95 Nasal Cannula 2.0 10/16/17 14:07 113/75 10/16/17 13:01 116/74 10/16/17 13:00 114 16 93 Nasal Cannula 2.0 10/16/17 12:38 116 10/16/17 12:36 94 Nasal Cannula 2.0 10/16/17 12:35 112 18 117/81 90 Room Air 10/16/17 12:25 90 Room Air 10/16/17 11:25 36.4 136 20 128/88 96 General Appearance: WD/WN, no apparent distress Head: normocephalic, atraumatic Eyes: normal inspection, sclerae normal Respiratory/Chest: normal breath sounds, no respiratory distress Cardiovascular: regular rate, rhythm, no edema Abdomen/GI: non tender, soft Extremities/Musculoskelatal: no calf tenderness, no pedal edema Neurologic/Psych: alert, oriented x 3 Skin: normal color, warm/dry Diagnostics Laboratory Results Results Past 24 Hours Test 10/16/17 12:25 10/16/17 15:40 Range/Units White Blood Count 5.16 4.8-10.8 K/uL Red Blood Count 3.50 4.7-6.1 M/uL Hemoglobin 11.0 14.0-18.0 g/dL Hematocrit 31.4 42-52 % Mean Corpuscular Volume 89.7 80-100 fL Mean Corpuscular Hemoglobin 31.4 25-34 pg Mean Corpuscular Hemoglobin Concent 35.0 32-36 g/dl Platelet Count 168 130-400 K/uL Mean Platelet Volume 8.5 7.4-10.4 fL Neutrophils (%) (Auto) 44.5 % Lymphocytes (%) (Auto) 37.2 % Monocytes (%) (Auto) 13.8 % Eosinophils (%) (Auto) 3.1 % Basophils (%) (Auto) 0.2 % Neutrophils # (Auto) 2.30 1.4-6.5 K/uL Lymphocytes # (Auto) 1.92 1.2-3.4 K/uL Monocytes # (Auto) 0.71 0.11-0.59 K/uL Eosinophils # (Auto) 0.16 0-0.5 K/uL Basophils # (Auto) 0.01 0-0.2 K/uL RDW Standard Deviation 58.7 36.4-46.3 fL RDW Coefficient of Variation 17.9 11.5-14.5 % Immature Granulocyte % (Auto) 1.2 % Immature Granulocyte # (Auto) 0.06 0.00-0.02 K/uL Sodium Level 135 136-145 mmol/L Potassium Level 3.6 3.5-5.1 mmol/L Chloride Level 103 98-107 mmol/L Carbon Dioxide Level 24 21-32 mmol/L Anion Gap 8.0 3-11 mmol/L Blood Urea Nitrogen 16 7-18 mg/dl Creatinine 1.53 0.60-1.40 mg/dl Est Creatinine Clear Calc Drug Dose 52.0 ml/min Estimated GFR () 56.8 Estimated GFR (Non- 49.0 BUN/Creatinine Ratio 10.4 10-20 Random Glucose 122 70-99 mg/dl Calcium Level 9.6 8.5-10.1 mg/dl Total Bilirubin 0.3 0.2-1 mg/dl Direct Bilirubin 0.1 0-0.2 mg/dl Aspartate Amino Transf (AST/SGOT) 29 15-37 U/L Alanine Aminotransferase (ALT/SGPT) 33 12-78 U/L Alkaline Phosphatase 103 45-117 U/L Troponin I < 0.015 0-0.045 ng/ml Pro-B-Type Natriuretic Peptide 1763 0-900 pg/ml Total Protein 11.9 6.4-8.2 gm/dl Albumin 2.7 3.4-5.0 gm/dl Lipase 134 73-393 U/L Urine Color YELLOW Urine Appearance CLEAR CLEAR Urine pH 5.0 4.5-7.5 Urine Specific [place] > 1.045 1.000-1.030 Urine Protein NEG NEG Urine Glucose (UA) NEG NEG Urine Ketones NEG NEG Urine Occult Blood NEG NEG Urine Nitrite NEG NEG Urine Bilirubin NEG NEG Urine Urobilinogen NEG NEG Urine Leukocyte Esterase NEG NEG Diagnostic Radiology CT AP: 1. 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 2. There is a minimal superior endplate compression deformity of L2. This appears new from 09/27/2017 and is likely acute. 3. A large osteolytic lesion is seen in the medial left ilium. Additionally, lesions are present within proximal femora including the left femoral neck. Note that these lesions may be at risk for insufficiency fracture. 4. There is minimal epidural extension of a lesion within the right posterior aspect of the L5 vertebral body. This does not cause significant acquired compromise of the central canal at this time. 5. Abdominal and retroperitoneal lymphadenopathy is similar to the 09/27/2017 examination. 6. There is evidence of resolving diverticulitis of the sigmoid colon. This has improved from 09/27/2017. 7. Emphysema. 8. Additional findings as above. CT chest: 1. Study is negative for pulmonary embolus. 2. Scattered bibasilar parenchymal and atelectatic changes are similar. 3. Mediastinal adenopathy is stable. 4. Diffuse lytic changes throughout all major osseous components consistent with diffuse metastatic bony change. 5. Progressive destruction compared to the prior study of the anterior margin of T3 with a associated soft tissue component Impression Assessment and Plan 57 y/o M who was admitted on 10/16 for intractable pain related to lytic lesions Intractable pain: lytic lesions noted on imaging Was on oxycontin 10mg Q4h and this was no longer effective Morphine, dilaudid PRN Was to see PM this week, c/s pending ARF: likely related to dehydration given poor recent PO intake Cr 1.5 Monitor with IVF Multiple myeloma: follow with Dr. Smith Is to start chemo on Friday CAD: s/p stent Continue aspirin and statin Other: Full code Heparin for DVT proph Reg diet Resuscitation Status VTE Prophylaxis Will order VTE Prophylaxis: Yes
[2017-10-16 17:49] VITALS: BMI 25.7
[2017-10-16] MEDS ORDERED: SODIUM CHLORIDE 0.9% 1000ML 1,000 ML IV SCH (18:00)
[2017-10-16] MEDS: MoRPHine SULFATE 2 MG/ML CARP IV PRN (20:10)
[2017-10-16 20:36] LABS: INR 1.1 (0.9-1.1)
[2017-10-16] MEDS: HEPARIN SOD 5000 UNIT/0.5 ML CARP SQ SCH (22:59)
[2017-10-16] MEDS: DOCUSATE SODIUM/SENNA 50/8.6MG TAB PO SCH (22:59)
[2017-10-16] MEDS: PRAVASTATIN SOD 40 MG TAB PO SCH (23:00)
[2017-10-16] MEDS: hydrOXYzine HCL 25 MG TAB PO SCH (23:00)
[2017-10-17] VITALS (11 sets, daily range): BP systolic 108–160; BP diastolic 72–92; PULSE 88–118; TEMP 36.4–37.1; O2SAT 90–95
[2017-10-17] MEDS: MoRPHine SULFATE 2 MG/ML CARP IV PRN ×2 (00:12→07:58)
[2017-10-17] MEDS: POTASSIUM CHLORIDE INJ 40 MEQ in SODIUM CHLORIDE 0.9% 1000ML 1,000 ML IV SCH ×3 (01:14→21:27)
[2017-10-17] MEDS: OXYCODONE HCL IR 5 MG TAB (IMMEDIATE RELEASE) PO PRN (07:58)
[2017-10-17] MEDS: OMEGA-3 (PURIFIED FISH OIL) 1 GM CAP PO SCH (08:04)
[2017-10-17] MEDS: ASPIRIN 81 MG ECTAB PO SCH (08:05)
[2017-10-17] MEDS: DOCUSATE SODIUM/SENNA 50/8.6MG TAB PO SCH ×2 (08:05→21:15)
[2017-10-17] MEDS: CHOLECALCIFEROL 1000 INTER.UNIT TAB PO SCH (08:05)
[2017-10-17] MEDS ORDERED: NURSING VERBAL MED ORDER ONE ×3 (08:30→19:00)
[2017-10-17] MEDS ORDERED: NON-FORMULARY MEDICATION (Garlic 1,000 MG) PO SCH (09:00)
[2017-10-17] MEDS: HEPARIN SOD 5000 UNIT/0.5 ML CARP SQ SCH ×2 (09:00→21:00)
[2017-10-17] MEDS ORDERED: HYDROmorphone INJ 1 MG/ML SYR IV PRN (09:00)
[2017-10-17] MEDS: SODIUM CHLORIDE 0.9% 1000ML 1,000 ML IV SCH (09:02)
[2017-10-17] MEDS ORDERED: HYDROmorphone INJ 0.5 MG/0.5 ML SYR IV PRN (09:15)
[2017-10-17] MEDS ORDERED: NALOXONE HCL 0.4 MG/1 ML VIAL/CARP IV PRN (09:15)
--- NOTE | 2017-10-17 09:22 | Oncology Consultation ---
Oncology/Heme Consultation Date of Consultation: Oct 17, 2017. Attending Physician: Reina Layne DO Reason for Consultation: Multiple myeloma Pain History of Present Illness Mr. Anders is a 57 year old man with recently diagnosed IgG kappa multiple myeloma with plasmablastic differentiation. He is due to start treatment with Revlimid, Velcade, and dexamethasone on Friday. He presented yesterday with intractable pain. His pain is worst in his right shoulder, though he has pain all over. He has 10 mg oxycodone immediate release at home and takes about 4 per day. However, it seems this is barely affecting his pain. He denies any new pain, but definitely feels that his shoulder pain in particular is worsening. Past Medical/Surgical History Medical Problems: (1) Dehydration Status: Acute (2) Dehydration Status: Acute (3) Multiple myeloma Status: Chronic (4) Rib pain on right side Status: Acute Family History Cancer Social History Smoking Status: Former Smoker Alcohol Use: none Drug Use: none Marital Status: Housing Status: lives with family Occupation Status: employed Allergies Coded Allergies: Atorvastatin (Verified Adverse Reaction, Unknown, myalgias, 10/16/17) Simvastatin (Verified Adverse Reaction, Unknown, myalgias, 10/16/17) Home Medications Scheduled Aspirin (Aspirin Ec), 81 MG PO DAILY Cholecalciferol (Vitamin D3), 1 TAB PO DAILY Garlic (Garlic), 1,000 MG PO QAM Hydroxyzine Pamoate (Vistaril), 2 CAP PO HS [place]-3 Fatty Acids (Fish Oil), 1 CAP PO QAM Pravastatin Sodium (Pravachol), 1 TAB PO DAILY Sennosides-Docusate Sodium (Docusate Sodium/Senna), 1 TAB PO BID Scheduled PRN Oxycodone Hcl (Oxycodone Hcl), 1 TAB PO Q4H PRN for Moderate Pain Current Inpatient Medications Current Inpatient Medications Medications (Trade) Dose Ordered Sig/Malik Route Start Time Stop Time Status Last Admin Dose Admin Ioversol (Optiray 320) 100 ml UD PRN IV 10/16/17 12:15 10/20/17 12:14 Acetaminophen (Tylenol Tab) 650 mg Q4H PRN PO 10/16/17 17:30 11/15/17 17:29 Magnesium Hydroxide (Milk Of Magnesia Susp) 30 ml Q6H PRN PO 10/16/17 17:30 11/15/17 17:29 Ondansetron HCl (Zofran Inj) 4 mg Q6H PRN IV 10/16/17 17:30 11/15/17 17:29 Heparin Sodium (Porcine) (Heparin Sq 5000 Unit/0.5ml) 5,000 unit Q12H SQ 10/16/17 21:00 11/15/17 20:59 Aspirin (Ecotrin Tab) 81 mg DAILY PO 10/17/17 08:00 11/16/17 08:59 10/17/17 08:05 81 MG Cholecalciferol (Vitamin D Tab) 1,000 inter.unit DAILY PO 10/17/17 08:00 11/16/17 08:59 10/17/17 08:05 1,000 INTER.UNIT Senna/Docusate Sodium (Senokot S Tab) 1 tab BID PO 10/16/17 20:00 11/15/17 20:59 10/17/17 08:05 1 TAB Hydroxyzine HCl (Vistaril Tab) 50 mg HS PO 10/16/17 21:00 11/15/17 20:59 10/16/17 23:00 50 MG Fish Oil ([place]-3 (Purified Fish Oil) Cap) 1 gm QAM PO 10/17/17 08:00 11/16/17 08:59 10/17/17 08:04 1 GM Oxycodone HCl (Roxicodone Immediate Rel Tab) 10 mg Q4H PRN PO 10/16/17 17:30 11/15/17 17:29 10/17/17 07:58 10 MG Pravastatin Sodium (Pravachol Tab) 80 mg HS PO 10/16/17 21:00 11/15/17 20:59 10/16/17 23:00 80 MG Potassium Chloride 40 meq/ Sodium Chloride 1,020 ml @ 100 mls/hr [id number] IV 10/17/17 00:30 11/16/17 00:29 10/17/17 01:14 100 MLS/HR Hydromorphone HCl (Dilaudid Inj) 1 mg Q2H PRN IV 10/17/17 09:00 10/31/17 08:59 10/17/17 09:09 1 MG Fentanyl (Duragesic Patch) 25 mcg Q72H TD 10/17/17 09:15 10/31/17 09:14 UNV Miscellaneous (Fentanyl Patch Remove & Waste) 1 ea Q3D N/A 10/20/17 09:15 11/19/17 09:14 UNV Miscellaneous Information (Check Fentanyl Patch Placement) 1 ea QS N/A 10/17/17 16:00 11/16/17 15:59 UNV Naloxone HCl (Narcan Inj) 0.1 mg Q5M PRN IV 10/17/17 09:15 11/16/17 09:14 UNV Miscellaneous Information (Incremental DIRECTOR OF CAREER SERVICES Titration) 1 ea QS N/A 10/17/17 16:00 11/16/17 15:59 UNV Miscellaneous Information (Lock-Out DIRECTOR OF CAREER SERVICES Titration) 1 ea QS N/A 10/17/17 16:00 10/31/17 15:59 UNV Hydromorphone HCl (Dilaudid Parliamentary Archivist) 25 mg PRN PRN IV 10/17/17 09:15 10/31/17 09:14 UNV Docusate Sodium (coLACE CAP) 100 mg BID PO 10/17/17 20:00 11/16/17 19:59 UNV Magnesium Citrate (Citrate Of Magnesia Soln) 50 ml DAILY PO 10/20/17 08:00 11/19/17 07:59 UNV Sodium Chloride 1,000 ml @ 15 mls/hr Q24H IV 10/17/17 09:02 11/16/17 09:01 UNV Hydromorphone HCl (Dilaudid Inj) 0.5 mg Q2H PRN IV 10/17/17 09:15 10/31/17 09:14 UNV Duloxetine HCl (Cymbalta Cap) 30 mg QAM PO 10/18/17 08:00 11/17/17 07:59 UNV Duloxetine HCl (Cymbalta Cap) 30 mg QAM ONCE PO 10/17/17 09:15 10/17/17 09:16 UNV Lidocaine (Lidoderm Patch 5%) 1 patch QAM TD 10/17/17 09:15 11/16/17 09:14 UNV Miscellaneous (Remove Lidoderm Patch) 1 ea DAILY@21 N/A 10/17/17 21:00 11/16/17 20:59 UNV Review of Systems Constitutional: + fatigue, No fever Respiratory: No cough, No shortness of breath Cardiovascular: No chest pain Abdomen: No pain Musculoskeletal: + joint pain, + muscle pain Hematologic / Lymphatic: No night sweats Physical Exam Date Time Temp Pulse Resp B/P (MAP) Pulse Ox O2 Delivery O2 Flow Rate FiO2 10/17/17 08:15 36.6 101 18 134/84 (101) 93 Room Air 10/17/17 04:45 36.4 103 18 115/78 (90) 91 Room Air 10/17/17 00:03 36.7 103 16 124/78 (93) 92 Room Air 10/16/17 19:26 115 22 118/85 95 10/16/17 19:00 113 18 10/16/17 18:31 133/87 10/16/17 18:30 108 17 10/16/17 18:01 127/85 10/16/17 18:00 107 20 10/16/17 17:49 Nasal Cannula 2.0 10/16/17 17:31 123/79 10/16/17 17:30 105 15 93 Nasal Cannula 2.0 10/16/17 17:01 125/86 10/16/17 17:00 100 16 94 Nasal Cannula 2.0 10/16/17 16:31 138/92 10/16/17 16:30 109 19 96 Nasal Cannula 2.0 10/16/17 16:01 128/90 10/16/17 16:00 104 14 97 Nasal Cannula 2.0 10/16/17 15:46 97 Nasal Cannula 2.0 10/16/17 15:31 147/95 10/16/17 15:30 109 17 10/16/17 15:01 121/78 10/16/17 15:00 108 14 10/16/17 14:30 105 18 114/73 95 Nasal Cannula 2.0 10/16/17 14:07 113/75 10/16/17 13:01 116/74 10/16/17 13:00 114 16 93 Nasal Cannula 2.0 10/16/17 12:38 116 10/16/17 12:36 94 Nasal Cannula 2.0 10/16/17 12:35 112 18 117/81 90 Room Air 10/16/17 12:25 90 Room Air 10/16/17 11:25 36.4 136 20 128/88 96 General Appearance: WD/WN, no apparent distress Respiratory/Chest: lungs clear Cardiovascular: regular rate, rhythm Abdomen/GI: non tender, soft Extremities/Musculoskelatal: no pedal edema Neurologic/Psych: alert, oriented x 3 Skin: + rash Laboratory Results Last 24 Hours Test 10/16/17 12:25 10/16/17 15:40 10/17/17 08:56 White Blood Count 5.16 K/uL Red Blood Count 3.50 M/uL Hemoglobin 11.0 g/dL Hematocrit 31.4 % Mean Corpuscular Volume 89.7 fL Mean Corpuscular Hemoglobin 31.4 pg Mean Corpuscular Hemoglobin Concent 35.0 g/dl Platelet Count 168 K/uL Mean Platelet Volume 8.5 fL Neutrophils (%) (Auto) 44.5 % Lymphocytes (%) (Auto) 37.2 % Monocytes (%) (Auto) 13.8 % Eosinophils (%) (Auto) 3.1 % Basophils (%) (Auto) 0.2 % Neutrophils # (Auto) 2.30 K/uL Lymphocytes # (Auto) 1.92 K/uL Monocytes # (Auto) 0.71 K/uL Eosinophils # (Auto) 0.16 K/uL Basophils # (Auto) 0.01 K/uL RDW Standard Deviation 58.7 fL RDW Coefficient of Variation 17.9 % Immature Granulocyte % (Auto) 1.2 % Immature Granulocyte # (Auto) 0.06 K/uL Prothrombin Time 11.3 SECONDS Prothromb Time International Ratio 1.1 Sodium Level 135 mmol/L Potassium Level 3.6 mmol/L Chloride Level 103 mmol/L Carbon Dioxide Level 24 mmol/L Anion Gap 8.0 mmol/L Blood Urea Nitrogen 16 mg/dl Creatinine 1.53 mg/dl Est Creatinine Clear Calc Drug Dose 52.0 ml/min Estimated GFR () 56.8 Estimated GFR (Non- 49.0 BUN/Creatinine Ratio 10.4 Random Glucose 122 mg/dl Calcium Level 9.6 mg/dl Total Bilirubin 0.3 mg/dl Direct Bilirubin 0.1 mg/dl Aspartate Amino Transf (AST/SGOT) 29 U/L Alanine Aminotransferase (ALT/SGPT) 33 U/L Alkaline Phosphatase 103 U/L Troponin I < 0.015 ng/ml Pro-B-Type Natriuretic Peptide 1763 pg/ml Total Protein 11.9 gm/dl Albumin 2.7 gm/dl Lipase 134 U/L Urine Color YELLOW Urine Appearance CLEAR Urine pH 5.0 Urine Specific [place] > 1.045 Urine Protein NEG Urine Glucose (UA) NEG Urine Ketones NEG Urine Occult Blood NEG Urine Nitrite NEG Urine Bilirubin NEG Urine Urobilinogen NEG Urine Leukocyte Esterase NEG Assessment & Plan Mr. Anders has multiple myeloma and is due to start treatment on Friday. He presents with severe, intractable pain in a number of places, but most intensely in his right shoulder. We do not have any dedicated imaging of that area, so a plain film of the shoulder might be helpful. Some of his pain may be related to his spinal fusion, but if he does have a lytic lesion in his shoulder area, we could consider palliative RT. Otherwise, he needs more adequate narcotic dosing. Palliative care have been consulted to help modify his doses. Ideally, we would like to start his treatment on Friday as an outpatient. However, if his pain is not adequately controlled by then, we can delay things.
[2017-10-17 09:33] LABS: CALCIUM 9.8 mg/dl (8.5-10.1); CREATININE 1.56 mg/dl (0.60-1.40); POTASSIUM 4.1 mmol/L (3.5-5.1)
[2017-10-17] MEDS ORDERED: DULOXETINE (CYMBALTA) 30 MG CAP PO STA (10:27)
--- NOTE | 2017-10-17 10:33 | Pain Management Consultation ---
Pain Management Consultation Date of Consultation Oct 17, 2017. Reason for Consultation Medical management of pain Pain Location 1 - 2 - 3 - History 57-year-old male with recent diagnosis of multiple myeloma with multiple lytic lesions identified including the right scapula, left pelvis and femur, multiple rib lesions, acute L2 compression fracture. He notes that his pain is constant all the time aching and stabbing ranging between 5 and 10 out of 10. He states that it is difficult to lie down secondary to pain and has not been sleeping. He admits slight decrease in mood secondary to pain. He recently had instrumentation of his thoracic spine secondary to T7 vertebral body compression fracture at [facility]. He is scheduled to start chemotherapy 10/19/2017. He was admitted yesterday for pain control. He reports he been taking oxycodone 10 mg p.o. 4 times daily with limited benefit. He admits to some constipation secondary to narcotic medications but no mental side effects or other concerns. He did have success of moving his bowels with senna. He reports that a majority of his pain is located over his right scapular region at the inferior margin of the scapula. He states that he had recent imaging (within the last 4 weeks) including what he thinks was a complete spine MRI at [facility] but not available for review today. Past Medical/Surgical History (1) Tobacco abuse (2) Hypertension (3) Peripheral arterial disease (4) COPD (chronic obstructive pulmonary disease) with emphysema (5) Recent spinal surgery (6) T7 vertebral fracture (7) Back pain (8) Lytic bone lesions on xray (9) Dehydration (10) Multiple myeloma Family History Cancer Social / Work History Smokeless Tobacco Use: No Alcohol Use: none Drug Use: none Marital Status: Housing Status: lives with family Occupation: employed Allergies Coded Allergies: Atorvastatin (Verified Adverse Reaction, Unknown, myalgias, 10/16/17) Simvastatin (Verified Adverse Reaction, Unknown, myalgias, 10/16/17) Medications Current Inpatient Medications Medications (Trade) Dose Ordered Sig/Malik Route Start Time Stop Time Status Last Admin Dose Admin Ioversol (Optiray 320) 100 ml UD PRN IV 10/16/17 12:15 10/20/17 12:14 Acetaminophen (Tylenol Tab) 650 mg Q4H PRN PO 10/16/17 17:30 11/15/17 17:29 Magnesium Hydroxide (Milk Of Magnesia Susp) 30 ml Q6H PRN PO 10/16/17 17:30 11/15/17 17:29 Ondansetron HCl (Zofran Inj) 4 mg Q6H PRN IV 10/16/17 17:30 11/15/17 17:29 Heparin Sodium (Porcine) (Heparin Sq 5000 Unit/0.5ml) 5,000 unit Q12H SQ 10/16/17 21:00 11/15/17 20:59 Aspirin (Ecotrin Tab) 81 mg DAILY PO 10/17/17 08:00 11/16/17 08:59 10/17/17 08:05 81 MG Cholecalciferol (Vitamin D Tab) 1,000 inter.unit DAILY PO 10/17/17 08:00 11/16/17 08:59 10/17/17 08:05 1,000 INTER.UNIT Senna/Docusate Sodium (Senokot S Tab) 1 tab BID PO 10/16/17 20:00 11/15/17 20:59 10/17/17 08:05 1 TAB Hydroxyzine HCl (Vistaril Tab) 50 mg HS PO 10/16/17 21:00 11/15/17 20:59 10/16/17 23:00 50 MG Fish Oil (Colbert-3 (Purified Fish Oil) Cap) 1 gm QAM PO 10/17/17 08:00 11/16/17 08:59 10/17/17 08:04 1 GM Oxycodone HCl (Roxicodone Immediate Rel Tab) 10 mg Q4H PRN PO 10/16/17 17:30 11/15/17 17:29 10/17/17 07:58 10 MG Pravastatin Sodium (Pravachol Tab) 80 mg HS PO 10/16/17 21:00 11/15/17 20:59 10/16/17 23:00 80 MG Potassium Chloride 40 meq/ Sodium Chloride 1,020 ml @ 100 mls/hr [id number] IV 10/17/17 00:30 11/16/17 00:29 10/17/17 01:14 100 MLS/HR Hydromorphone HCl (Dilaudid Inj) 1 mg Q2H PRN IV 10/17/17 09:00 10/31/17 08:59 10/17/17 09:09 1 MG Fentanyl (Duragesic Patch) 25 mcg Q72H TD 10/17/17 09:15 10/31/17 09:14 UNV Miscellaneous (Fentanyl Patch Remove & Waste) 1 ea Q3D N/A 10/20/17 09:15 11/19/17 09:14 UNV Miscellaneous Information (Check Fentanyl Patch Placement) 1 ea QS N/A 10/17/17 16:00 11/16/17 15:59 UNV Naloxone HCl (Narcan Inj) 0.1 mg Q5M PRN IV 10/17/17 09:15 11/16/17 09:14 UNV Miscellaneous Information (Incremental AMPLIFIER MECHANIC Titration) 1 ea QS N/A 10/17/17 16:00 11/16/17 15:59 UNV Miscellaneous Information (Lock-Out AMPLIFIER MECHANIC Titration) 1 ea QS N/A 10/17/17 16:00 10/31/17 15:59 UNV Hydromorphone HCl (Dilaudid Lead Engineer) 25 mg PRN PRN IV 10/17/17 09:15 10/31/17 09:14 UNV Docusate Sodium (coLACE CAP) 100 mg BID PO 10/17/17 20:00 11/16/17 19:59 UNV Magnesium Citrate (Citrate Of Magnesia Soln) 50 ml DAILY PO 10/20/17 08:00 11/19/17 07:59 UNV Sodium Chloride 1,000 ml @ 15 mls/hr Q24H IV 10/17/17 09:02 11/16/17 09:01 UNV Hydromorphone HCl (Dilaudid Inj) 0.5 mg Q2H PRN IV 10/17/17 09:15 10/31/17 09:14 UNV Duloxetine HCl (Cymbalta Cap) 30 mg QAM PO 10/18/17 08:00 11/17/17 07:59 UNV Duloxetine HCl (Cymbalta Cap) 30 mg QAM ONCE PO 10/17/17 09:15 10/17/17 09:16 UNV Lidocaine (Lidoderm Patch 5%) 1 patch QAM TD 10/17/17 09:15 11/16/17 09:14 UNV Miscellaneous (Remove Lidoderm Patch) 1 ea DAILY@21 N/A 10/17/17 21:00 11/16/17 20:59 UNV Review of Systems Constitutional: Negative for fever, chills, sweats Eyes: Negative for eye pain, photophobia, drainage Ear, nose, mouth, throat: Negative for ear pain, nasal congestion, mouth lesions , change in voice Respiratory: Negative for wheezing, sputum production Cardiovascular: Negative for chest pain, palpitations, calf pain Gastrointestinal: Negative for abdominal pain, belching, bloating Genitourinary: Negative for dysuria, urinary incontinence, urinary urgency Musculoskeletal: Negative for deformities Integumentary: Negative for nail changes, skin yellowing, pruritus Neurological: Negative for abnormal speech, seizure type activity Physical Exam Height & Weight: Height 5 feet, 9.00 inches. Weight 78.700 (Kilograms) 173 (Pounds) Last Vital Signs Documentation Date Time Temp Pulse Resp B/P (MAP) Pulse Ox O2 Delivery O2 Flow Rate FiO2 10/17/17 09:20 93 Room Air 10/17/17 08:15 36.6 101 18 134/84 (101) 10/16/17 17:49 2.0 Exam: Constitutional: Well-developed, ill-appearing, slightly frail Psych: Awake, alert, and oriented 3 with normal affect and mood. Recent memory appears grossly intact Eyes: Pupils are equally round and reactive to light with normal size pupils, eyelids appear normal Ear, nose, mouth, and throat: Moist nasal and oral membranes, lips and tongues appear normal, no external ear abnormalities are noted Neck: The trachea is midline without deviation and no thyromegaly is noted Respiratory: Normal respiratory effort without distress, no audible wheezes or rhonchi CV: Normal S1 and S2, carotid upstroke is within normal limits Chest: Deferred GI/abdomen: Non-tender without guarding, no masses noted Musculoskeletal: Head is normocephalic and atraumatic, gait not observed, patient resides in bedside chair during examination Cervical: Lordotic curve: Normal Range of motion is normal with extension, flexion, side- bending, rotation Tenderness: Mild tenderness r over the axial midline Facet provocation: Negative bilaterally Hoffmans maneuver: Negative bilaterally Step-off injuries: None Strength: Strength is equal bilaterally with 5 out of 5 strength in all planes Sensation of upper extremities: Intact bilaterally Myofascial spasm: No appreciable spasm. No discrete trigger points noted Thoracic: Kyphotic curve: Slightly decreased, there is a well- healing axial midline incision from prior T7 surgery less than 30 days ago there is no appreciable erythema, drainage, discharge from the surgical incision site Range of motion is decreased with extension, flexion, side- bending, rotation Tenderness: Moderate tenderness over the axial midline Facet provocation: Negative bilaterally Scoliosis present: None Step-off injuries: None Myofascial spasm: Mild to moderate appreciable spasm. No discrete trigger points noted, there is exquisite tenderness over his right scapular inferior margin as well as over the suprascapular and infrascapular nerves. Lumbar: Lordotic curve: Slightly decreased with evidence of prior lumbar midline incision Range of motion is normal with extension, flexion, side- bending, rotation Tenderness: Nontender over the axial midline Facet provocation: Negative bilaterally Straight leg raise: Negative bilaterally Step-off injuries: None Strength: Strength is equal bilaterally with 5 out of 5 strength in all planes Sensation of lower extremities: Intact bilaterally Myofascial spasm: No appreciable spasm. No discrete trigger points noted Greater trochanters: Nontender bilaterally Sacroiliac joints: Tender bilaterally Pathologic reflexes noted: None Skin: No rashes, lesions, ulcers, and duration are noted Neuro: No nystagmus noted, the tongue is midline, the patient is able to rotate their head bilaterally : Deferred Laboratory Laboratory Results (Last CBC): 10/16/17 12:25 Red Blood Count 3.50 L, Mean Corpuscular Volume 89.7, Mean Corpuscular Hemoglobin 31.4, Mean Corpuscular Hemoglobin Concent 35.0, Mean Platelet Volume 8.5, Neutrophils (%) (Auto) 44.5, Lymphocytes (%) (Auto) 37.2, Monocytes (%) ( Auto) 13.8, Eosinophils (%) (Auto) 3.1, Basophils (%) (Auto) 0.2, Neutrophils # (Auto) 2.30, Lymphocytes # (Auto) 1.92, Monocytes # (Auto) 0.71 H, Eosinophils # (Auto) 0.16, Basophils # (Auto) 0.[address] Findings Patient: KAITLIN BUI Address1: [address] [place] [address] Rec: [id number] Address2: Acct ID: [id number] [facility] Zip: [place] [address] Date: 1960 Sex: M Room/Bed: Ref Phy: No Doctor, Assigned SC: VALE Att Phy: Report #: [id number] Kenyatta Phy: No Doctor, Assigned Test: APIV Admit Phy: Natural Resources Engineer: MADI Interpreting Phy: Mansoor Negro M.D. Diagnosis: REFERRED BY [facility] MYOLEMA -SEVERE BACK,RIB,SHOUL Ordering Phy: Lefty Bhat M.D. Service Date: 10/16/17 Admit Date: 10/16/17 MNE: [id number] CONF: DICTATED BY: Mansoor Negro M.D.]] CC: Lefty Bhat M.D. No Doctor, Assigned Endcc: [~ rep ct add3]] CT SCAN OF THE ABDOMEN AND PELVIS WITH IV CONTRAST CLINICAL HISTORY: Generalized abdominal pain. Back pain. Reported history of multiple myeloma. COMPARISON STUDY: Abdominal CT dated 09/27/2017. TECHNIQUE: Following the IV administration of 119 cc of Optiray 320, CT scan of the abdomen and pelvis is performed from the lung bases to the proximal femora. Images are reviewed in the axial, sagittal, and coronal planes. IV contrast was administered without complication. A dose lowering technique was utilized adhering to the principles of ALARA. The examination is degraded by streak artifact from the patient's right arm which could not be elevated above the abdomen. FINDINGS: Lung bases: The heart is top normal in size and without pericardial effusion. There are coronary artery calcifications. A tiny hiatal hernia is identified. Emphysema is noted. There is bibasilar scarring/atelectasis. No airspace consolidation is seen typical for pneumonia and there is no pleural effusion. Liver: The contrast-enhanced liver is normal in size, contour, and attenuation. There is no intrahepatic biliary ductal dilatation. The hepatic veins and portal veins are patent. A calcified granuloma is noted in the right lobe. A subcentimeter hypodensity in the left lobe on image #86 likely represents a cyst but is too small for definitive characterization. This is unchanged from previous. Gallbladder: Unremarkable. Spleen: Normal in size and attenuation, measuring 11.0 cm in length. Pancreas: Unremarkable. Adrenal glands: Unremarkable. Kidneys: The contrast enhanced kidneys demonstrate cortical atrophy and are without hydronephrosis. The kidneys enhance symmetrically. There is a 2 mm nonobstructing left renal calculus. Abdominal vasculature: There is advanced atherosclerotic calcification of the abdominal aorta. There is an aortobiiliac bypass graft. The bypass is widely patent. The [place] common iliac arteries appears thrombosed. Bowel: There is moderate sigmoid diverticulosis with evidence of mild acute sigmoid diverticulitis. This has improved from 09/27/2017. No evidence of abscess is identified. No bowel obstruction is seen. The appendix is well-visualized and normal. Peritoneum: There is no intraperitoneal free air or abdominal ascites. There is a small fat-containing umbilical hernia. Lymphadenopathy: Upper abdominal and retroperitoneal lymphadenopathy is similar to previous. A right cardiophrenic node on image #28 measures 2.8 x 1.8 cm. A portacaval node on image #98 measures 3.8 x 3.8 cm. An aortocaval node on image #158 measures 2.1 x 1.5 cm. There are mildly enlarged iliac chain nodes. No inguinal adenopathy is seen. Pelvic viscera: The the prostate gland is normal in size and heterogeneous. The bladder is normal as visualized. Skeletal structures: The skeletal structures are osteopenic. Extensive/multifocal osteolytic metastatic disease is identified throughout all the visualized bony structures. There is a mild chronic compression deformity of L5. There is a minimal superior endplate compression deformity of L2. This appears new from 09/27/2017. A large osteolytic lesion in the medial left ilium measures 5.4 x 3.2 cm. Lesions are also identified within the proximal femora bilaterally. Lesions in the left femoral neck may place the patient at risk for insufficiency fracture. There is minimal epidural extension from a lesion in the posterior aspect of L5 seen on axial image #253. IMPRESSION: 1. 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 2. There is a minimal superior endplate compression deformity of L2. This appears new from 09/27/2017 and is likely acute. 3. A large osteolytic lesion is seen in the medial left ilium. Additionally, lesions are present within proximal femora including the left femoral neck. Note that these lesions may be at risk for insufficiency fracture. 4. There is minimal epidural extension of a lesion within the right posterior aspect of the L5 vertebral body. This does not cause significant acquired compromise of the central canal at this time. 5. Abdominal and retroperitoneal lymphadenopathy is similar to the 09/27/2017 examination. 6. There is evidence of resolving diverticulitis of the sigmoid colon. This has improved from 09/27/2017. 7. Emphysema. 8. Additional findings as above. Patient: KAITLIN BUI Address1: [address] [place] [address] Rec: [id number] Address2: Acct ID: [id number] [facility] Zip: [place] [address] Date: 1960 Sex: M Room/Bed: Ref Phy: No Doctor, Assigned SC: VALE Att Phy: Report #: [id number] Kenyatta Phy: No Doctor, Assigned Test: CXPEA Admit Phy: Natural Resources Engineer: MADI Interpreting Phy: Mohit Winchester M.D. Diagnosis: REFERRED BY [facility] MYOLEMA- SEVERE BACK,RIB,SHOUL Ordering Phy: Lefty Bhat M.D. Service Date: 10/16/17 Admit Date: 10/16/17 MNE: [id number] CONF: DICTATED BY: Mohit Winchester M.D.]] CC: Lefty Bhat M.D. No Doctor, Assigned Endcc: ADDENDUM ADDENDUM: The patient reports significant pain of the right scapula. There are several scapular lesions identified. The largest lesion is seen in the lateral aspect of the scapular spine on image #266 and measures 1.8 cm. Additional smaller lesions are identified in the glenoid, along the superior margin of the scapula, and the inferior scapular spine. There is no pathologic fracture identified. There is a chronic appearing pathologic fracture of the right posterior 10th rib seen on image #18. Numerous additional right-sided rib lesions are also identified without pathologic fracture at this time. Electronically signed by: Mansoor Negro M.D. 10/17/2017 10:14 AM Dictated Date/Time: 10/17/2017 10:12 AM ORIGINAL REPORT (CHEST FOR PE) ANGIO WITH CT DOSE: 1186.10 mGy.cm HISTORY: Chest pain dyspnea TECHNIQUE: Multiaxial CT images of the chest were performed following the intravenous administration of contrast to evaluate the pulmonary arteries. Maximal intensity projection images were also obtained. A dose lowering technique was utilized adhering to the principles of ALARA. COMPARISON STUDY: 09/27/2017 FINDINGS: Pulmonary vasculature enhances appropriately. There are no significant filling defects. Hilar and mediastinal adenopathy is generally stable compared to the prior exam. Moderate atherosclerotic change thoracic aorta is similar. Bibasilar focal regions of pleural thickening and atelectasis are similar. There are no new or interval findings. Extensive bony lytic changes noted throughout all major visualized osseous structures. This is similar. Slightly progressive bony erosive changes of the T3 vertebral body with significant loss of bone substance anteriorly. Moderate surrounding soft tissue component somewhat progressive from the prior study. Alpesh stabilization procedure of the mid thoracic region unchanged. IMPRESSION: 1. Study is negative for pulmonary embolus. 2. Scattered bibasilar parenchymal and atelectatic changes are similar. 3. Mediastinal adenopathy is stable. 4. Diffuse lytic changes throughout all major osseous components consistent with diffuse metastatic bony change. 5. Progressive destruction compared to the prior study of the anterior margin of T3 with a associated soft tissue component Radiology Findings Patient: KAITLIN BUI Address1: [address] [place] [address] Rec: [id number] Address2: Acct ID: [id number] [facility] Zip: [place] [address] Date: 1960 Sex: M Room/Bed: Ref Phy: No Doctor, Assigned SC: VALE Att Phy: Report #: [id number] Kenyatta Phy: No Doctor, Assigned Test: CXR1P Admit Phy: Natural Resources Engineer: BONG Interpreting Phy: Mohit Winchester M.D. Diagnosis: REFERRED BY [facility]ESICA MYOLEMA- SEVERE BACK,RIB,SHOUL Ordering Phy: Lefty Bhat M.D. Service Date: 10/16/17 Admit Date: 10/16/17 MNE: [id number] CONF: DICTATED BY: Mohit Winchester M.D.]] CC: Lefty Bhat M.D. No Doctor, Assigned Endcc: [~ rep ct add3]] CHEST ONE VIEW PORTABLE CLINICAL HISTORY: CHEST PAIN dyspnea COMPARISON STUDY: 09/27/2017 FINDINGS: Mild bibasilar interstitial change considered chronic. The mid and upper lungs are clear. Stable postoperative changes to the mid thoracic region. Baseline emphysematous changes are stable. IMPRESSION: Chronic and emphysematous change. No acute process. Past Records Previous Records: none available for review Release of records from [facility] was signed by the patient today Opioid Risk Assessment Risk assessment performed, no issues identified Assessment 1. Multiple myeloma with multiple osseous lytic lesions including the left femur, left pelvis, right scapula and multiple ribs predominantly right-sided, acute L2 compression fracture 2. Recent T7 vertebral body fracture status post instrumentation at [facility] 3. Acute pain secondary to numbers 1 and 2 4. Opioid-induced constipation-improved with senna 5. Right shoulder and scapular pain Recommendations 1. A request was placed for release of records with her [facility] today to include discharge summary, operative reports, imaging. If his cervical spine MRI or imaging of the right shoulder is not present in that release of records would recommend MRI cervical spine with and without contrast as well as plain x-ray imaging of the right shoulder to rule out any lytic lesions or impingement given right shoulder pain. 2. I reviewed the CT scan of his chest with the radiologist today and an addendum was made to the report which states that multiple lytic lesions are present within the right scapula which may be the cause of his significant right scapular pain. 3. I recommend initiation of fentanyl 25 mcg every 72 hours as well as continuation of oxycodone 10 mg p.o. every 4 and initiation of a hydromorphone AMPLIFIER MECHANIC's to better diminish and calculate his narcotic requirements. The patient was counseled on the risks and benefits and agrees to proceed. 4. Will write for magnesium citrate as well as Dulcolax for bowel regimen 5. I recommend initiation of Cymbalta 30 mg p.o. every morning to augment descending regulation of pain as well as assist with mood elevation. 6. I recommend initiation of Lidoderm patch to be placed over the point of maximal pain every 12 hours on and 12 hours off. 7. Patient may be a candidate for suprascapular nerve blocks with possible radiofrequency ablation should these conservative measures fail to diminish his pain. 8. Thank you for this consultation we will follow with the patient.
[2017-10-17] MEDS: FENTANYL 25 MCG/HR TDSY TD SCH (10:40)
[2017-10-17] MEDS: HYDROmorphone HCL 0.5MG/ML 50 ML CASSETTE IV PRN (11:03)
[2017-10-17] MEDS: LIDODERM (LIDOCAINE) PATCH 5% TD SCH (11:39)
[2017-10-17] MEDS ORDERED: LOCK-OUT PCA TITRATION SCH (16:00)
[2017-10-17] MEDS ORDERED: INCREMENTAL PCA TITRATION SCH (16:00)
[2017-10-17] MEDS: CHECK FENTANYL PATCH PLACEMENT SCH (21:13)
[2017-10-17] MEDS: hydrOXYzine HCL 25 MG TAB PO SCH (21:14)
[2017-10-17] MEDS: PRAVASTATIN SOD 40 MG TAB PO SCH (21:15)
[2017-10-17] MEDS: DOCUSATE SODIUM 100 MG CAP PO SCH (21:16)
--- NOTE | 2017-10-17 22:28 | Progress Note ---
Subjective Date of Service: Oct 17, 2017. Subjective Pt evaluation today including: conversation w/ patient, conversation w/ family , physical exam, chart review, lab review 57 yo male with PMH d diagnosed IgG kappa multiple myeloma with plasmablastic differentiation. Patient is in the hospital for mainly pain control. Patient reports out of controlled pain in his right shoulder and generalized body. Patient reports the pain was a "fifteen" out of 10.But has improved now that he is taking dilaudid drip. He states now pain is about a 7/10. Patient is concerned because he heard that the chemotherapy might be postponed. He does not want to have it postponed. At the same time, he is interested in treatments that may make him feel better such as radiation therapy for his shoulder. Problem List Medical Problems: (1) Dehydration Status: Acute (2) Dehydration Status: Acute (3) Multiple myeloma Status: Chronic (4) Rib pain on right side Status: Acute Review of Systems Constitutional: No fever, No chills Eyes: No worsening of vision ENT: No hearing loss Respiratory: No cough Cardiac: + chest pain Breast: No breast lump Abdomen: No pain Musculoskeletal: + joint pain, + muscle pain Male : No dysuria Neurologic: No memory loss Psychiatric: No depression symptoms Heme: No abnormal bleeding/bruising Endo: No fatigue Skin: No rash All Other Systems: Reviewed and Negative Objective Vital Signs Date Time Temp Pulse Resp B/P (MAP) Pulse Ox O2 Delivery O2 Flow Rate FiO2 10/17/17 19:31 36.8 118 20 118/79 (92) 95 Nasal Cannula 2.0 10/17/17 16:00 36.8 88 20 118/72 (87) 94 Nasal Cannula 2.0 10/17/17 16:00 95 Nasal Cannula 2.0 10/17/17 14:05 95 Nasal Cannula 2.0 10/17/17 14:02 36.6 108 20 108/74 (85) 90 Room Air 10/17/17 12:54 37.1 117 20 112/76 (88) 91 Room Air 10/17/17 12:06 36.6 117 20 160/92 (114) 93 Room Air 10/17/17 09:20 93 Room Air 10/17/17 08:15 36.6 101 18 134/84 (101) 93 Room Air 10/17/17 08:00 91 Room Air 10/17/17 04:45 36.4 103 18 115/78 (90) 91 Room Air 10/17/17 00:03 36.7 103 16 124/78 (93) 92 Room Air Physical Exam General Appearance: WD/WN, + mild distress (due to pain) Eyes: normal inspection ENT: normal ENT inspection Neck: supple, no adenopathy Respiratory/Chest: lungs clear, normal breath sounds Cardiovascular: regular rate, rhythm, no edema Abdomen: normal bowel sounds, non tender Extremities: normal range of motion, non-tender Neurologic/Psychiatric: alert, oriented x 3 Skin: normal color Lymphatic: no adenopathy Laboratory Results Last 24 Hours Test 10/17/17 08:56 Sodium Level 133 mmol/L Potassium Level 4.1 mmol/L Chloride Level 102 mmol/L Carbon Dioxide Level 26 mmol/L Anion Gap 5.0 mmol/L Blood Urea Nitrogen 14 mg/dl Creatinine 1.56 mg/dl Est Creatinine Clear Calc Drug Dose 51.0 ml/min Estimated GFR () 55.5 Estimated GFR (Non- 47.9 BUN/Creatinine Ratio 8.7 Random Glucose 94 mg/dl Calcium Level 9.8 mg/dl Assessment and Plan 57 y/o M who was admitted on 10/16 for intractable pain related to lytic lesions Intractable pain: due to lytic lesions from his Multiple myeloma Not controlled on oxycontine 10mg PO Q4H. Added today fentanyl, Dilaudid drip, lidocaine patch and duloxetine. Pain management saw patient as well as ONC. Also recommended radiation of the shoulder. They are not here on the weekend. will consult on Friday Originally scheduled for chemo on Friday, but may be postponed. Patient however does not want it postponed. will monitor. ARF: likely related to dehydration given poor recent PO intake Cr 1.5 No significant improvement. will monitor. Monitor with IVF Multiple myeloma: follow with Dr. Smith Is to start chemo on Friday as stated above. CAD: s/p stent Continue aspirin and statin Trop was negative. Other: Full code Heparin for DVT proph Reg diet Continued [facility] stay due to: multiple IV medications needed, other (pain is not controlled) Discharge planning: uncertain
[2017-10-18] VITALS (8 sets, daily range): BP systolic 106–121; BP diastolic 66–83; PULSE 95–112; TEMP 36.5–36.8; O2SAT 93–97
[2017-10-18] MEDS: CHECK FENTANYL PATCH PLACEMENT SCH ×3 (00:14→16:01)
[2017-10-18] MEDS: DULOXETINE (CYMBALTA) 30 MG CAP PO SCH (08:24)
[2017-10-18] MEDS: ASPIRIN 81 MG ECTAB PO SCH (08:24)
[2017-10-18] MEDS: DOCUSATE SODIUM 100 MG CAP PO SCH ×2 (08:24→21:26)
[2017-10-18] MEDS: POTASSIUM CHLORIDE INJ 40 MEQ in SODIUM CHLORIDE 0.9% 1000ML 1,000 ML IV SCH ×2 (08:24→18:30)
[2017-10-18] MEDS: OMEGA-3 (PURIFIED FISH OIL) 1 GM CAP PO SCH (08:24)
[2017-10-18] MEDS: CHOLECALCIFEROL 1000 INTER.UNIT TAB PO SCH (08:24)
[2017-10-18] MEDS: HEPARIN SOD 5000 UNIT/0.5 ML CARP SQ SCH ×3 (08:25→21:35)
[2017-10-18] MEDS: DOCUSATE SODIUM/SENNA 50/8.6MG TAB PO SCH ×2 (08:25→21:25)
[2017-10-18] MEDS: SODIUM CHLORIDE 0.9% 1000ML 1,000 ML IV SCH (08:25)
[2017-10-18] MEDS: LIDODERM (LIDOCAINE) PATCH 5% TD SCH (08:25)
[2017-10-18 08:58] LABS: HEMATOCRIT 29.4 % (42-52); HEMOGLOBIN 10.2 g/dL (14.0-18.0); MEAN CELL VOLUME 91.6 fL (80-100); MEAN CORPUSCULAR HEMOGLOBIN 31.8 pg (25-34); MEAN CORPUSCULAR HGB CONC 34.7 g/dl (32-36); MEAN PLATELET VOLUME 8.4 fL (7.4-10.4); PLATELET COUNT 137 K/uL (130-400); RED CELL DISTRIBUTION WIDTH CV 17.8 % (11.5-14.5); WHITE BLOOD COUNT 4.68 K/uL (4.8-10.8)
[2017-10-18 09:16] LABS: CREATININE 1.24 mg/dl (0.60-1.40); POTASSIUM 4.5 mmol/L (3.5-5.1)
--- NOTE | 2017-10-18 14:24 | DIAGNOSTIC IMAGING REPORT ---
CHEST ONE VIEW PORTABLE CLINICAL HISTORY: SOB dyspnea COMPARISON STUDY: 10/16/2017 FINDINGS: Moderate stable emphysematous change. Mild bibasilar fibrotic and/or interstitial change unaltered from the prior exam. Stable postoperative changes mid thoracic region. No evidence for new or interval process. IMPRESSION: 1. Moderate emphysematous change. 2. Mild stable cardiomegaly. 3. Mild bibasilar atelectatic and chronic interstitial change. The above report was generated using voice recognition software. It may contain grammatical, syntax or spelling errors. Electronically signed by: Mohit Winchester M.D. 10/18/2017 2:22 PM Dictated Date/Time: 10/18/2017 2:21 PM
--- NOTE | 2017-10-18 14:54 | Progress Note ---
Subjective Date of Service: Oct 18, 2017. Subjective Was called by nurse as she stated patient was having chest pain, and difficulty breathing. As I walked up to see him, he was resting comfortably having lunch when I saw him at noon. He does state his chest is tight, but it is mild in intensity. Pain worsens with deep inspiration. Patient denies any dyspnea. Patient also denies nausea, vomiting. Problem List Medical Problems: (1) Dehydration Status: Acute (2) Dehydration Status: Acute (3) Multiple myeloma Status: Chronic (4) Rib pain on right side Status: Acute Review of Systems Constitutional: No fever, No chills Eyes: No worsening of vision ENT: No hearing loss Respiratory: No cough Cardiac: + chest pain Breast: No breast lump Abdomen: No pain Musculoskeletal: + joint pain, + muscle pain Male : No dysuria Neurologic: No memory loss Psychiatric: No depression symptoms Heme: No abnormal bleeding/bruising Endo: No fatigue Skin: No rash All Other Systems: Reviewed and Negative All Other Systems: Reviewed and Negative Medications Current Inpatient Medications Medications (Trade) Dose Ordered Sig/Malik Route Start Time Stop Time Status Last Admin Dose Admin Ioversol (Optiray 320) 100 ml UD PRN IV 10/16/17 12:15 10/20/17 12:14 Acetaminophen (Tylenol Tab) 650 mg Q4H PRN PO 10/16/17 17:30 11/15/17 17:29 Magnesium Hydroxide (Milk Of Magnesia Susp) 30 ml Q6H PRN PO 10/16/17 17:30 11/15/17 17:29 Ondansetron HCl (Zofran Inj) 4 mg Q6H PRN IV 10/16/17 17:30 11/15/17 17:29 Heparin Sodium (Porcine) (Heparin Sq 5000 Unit/0.5ml) 5,000 unit Q12H SQ 10/16/17 21:00 11/15/17 20:59 10/18/17 21:35 5,000 UNIT Aspirin (Ecotrin Tab) 81 mg DAILY PO 10/17/17 08:00 11/16/17 08:59 10/18/17 08:24 81 MG Cholecalciferol (Vitamin D Tab) 1,000 inter.unit DAILY PO 10/17/17 08:00 11/16/17 08:59 10/18/17 08:24 1,000 INTER.UNIT Senna/Docusate Sodium (Senokot S Tab) 1 tab BID PO 10/16/17 20:00 11/15/17 20:59 10/18/17 21:25 1 TAB Hydroxyzine HCl (Vistaril Tab) 50 mg HS PO 10/16/17 21:00 11/15/17 20:59 10/18/17 21:26 50 MG Fish Oil ([place]-3 (Purified Fish Oil) Cap) 1 gm QAM PO 10/17/17 08:00 11/16/17 08:59 10/18/17 08:24 1 GM Oxycodone HCl (Roxicodone Immediate Rel Tab) 10 mg Q4H PRN PO 10/16/17 17:30 11/15/17 17:29 10/17/17 07:58 10 MG Pravastatin Sodium (Pravachol Tab) 80 mg HS PO 10/16/17 21:00 11/15/17 20:59 10/18/17 21:25 80 MG Potassium Chloride 40 meq/ Sodium Chloride 1,020 ml @ 100 mls/hr [id number] IV 10/17/17 00:30 11/16/17 00:29 10/19/17 04:55 100 MLS/HR Fentanyl (Duragesic Patch) 25 mcg Q72H TD 10/17/17 09:15 10/31/17 09:14 10/17/17 10:40 25 MCG Miscellaneous (Fentanyl Patch Remove & Waste) 1 ea Q3D N/A 10/20/17 09:15 11/19/17 09:14 Naloxone HCl (Narcan Inj) 0.1 mg Q5M PRN IV 10/17/17 09:15 11/16/17 09:14 Hydromorphone HCl (Dilaudid Flat Knitter) 25 mg PRN PRN IV 10/17/17 09:15 10/31/17 09:14 10/17/17 11:03 25 MG Docusate Sodium (coLACE CAP) 100 mg BID PO 10/17/17 20:00 11/16/17 19:59 10/18/17 21:26 100 MG Magnesium Citrate (Citrate Of Magnesia Soln) 50 ml DAILY PO 10/20/17 08:00 11/19/17 07:59 Sodium Chloride 1,000 ml @ 15 mls/hr Q24H IV 10/17/17 09:02 11/16/17 09:01 Hydromorphone HCl (Dilaudid Inj) 0.5 mg Q2H PRN IV 10/17/17 09:15 10/31/17 09:14 Duloxetine HCl (Cymbalta Cap) 30 mg QAM PO 10/18/17 08:00 11/17/17 07:59 10/18/17 08:24 30 MG Lidocaine (Lidoderm Patch 5%) 1 patch QAM TD 10/17/17 09:15 11/16/17 09:14 10/18/17 08:25 1 PATCH Miscellaneous (Remove Lidoderm Patch) 1 ea DAILY@21 N/A 10/17/17 21:00 11/16/17 20:59 10/17/17 21:17 1 EA Objective Vital Signs Date Time Temp Pulse Resp B/P (MAP) Pulse Ox O2 Delivery O2 Flow Rate FiO2 10/18/17 11:13 36.7 108 18 117/66 (83) 96 Nasal Cannula 2.0 10/18/17 08:00 97 Nasal Cannula 3.0 10/18/17 07:34 36.7 100 18 115/79 (91) 97 Nasal Cannula 3.0 10/18/17 04:00 36.5 95 20 111/74 (86) 94 2.0 10/18/17 00:00 36.6 95 17 121/83 (96) 95 Nasal Cannula 4.0 10/18/17 00:00 Nasal Cannula 2.0 10/17/17 20:00 Nasal Cannula 2.0 10/17/17 19:31 36.8 118 20 118/79 (92) 95 Nasal Cannula 2.0 10/17/17 16:00 36.8 88 20 118/72 (87) 94 Nasal Cannula 2.0 10/17/17 16:00 95 Nasal Cannula 2.0 Physical Exam Comments: General Appearance: WD/WN, no acute distress. Eyes: normal inspection ENT: normal ENT inspection Neck: supple, no adenopathy Respiratory/Chest: lungs clear, normal breath sounds Cardiovascular: regular rate, rhythm, no edema, nontender Abdomen: normal bowel sounds, non tender Extremities: normal range of motion, non-tender Neurologic/Psychiatric: alert, oriented x 3 Skin: normal color Lymphatic: no adenopathy Laboratory Results Last 24 Hours Test 10/18/17 08:48 10/18/17 12:19 White Blood Count 4.68 K/uL Red Blood Count 3.21 M/uL Hemoglobin 10.2 g/dL Hematocrit 29.4 % Mean Corpuscular Volume 91.6 fL Mean Corpuscular Hemoglobin 31.8 pg Mean Corpuscular Hemoglobin Concent 34.7 g/dl RDW Standard Deviation 60.0 fL RDW Coefficient of Variation 17.8 % Platelet Count 137 K/uL Mean Platelet Volume 8.4 fL Sodium Level 135 mmol/L Potassium Level 4.5 mmol/L Chloride Level 105 mmol/L Carbon Dioxide Level 24 mmol/L Anion Gap 6.0 mmol/L Blood Urea Nitrogen 16 mg/dl Creatinine 1.24 mg/dl Est Creatinine Clear Calc Drug Dose 64.2 ml/min Estimated GFR () 73.3 Estimated GFR (Non- 63.2 BUN/Creatinine Ratio 12.7 Random Glucose 98 mg/dl Calcium Level 9.0 mg/dl Troponin I < 0.015 ng/ml Assessment and Plan 57 y/o M who was admitted on 10/16 for intractable pain related to lytic lesions Intractable pain: due to lytic lesions from his Multiple myeloma Not controlled on oxycontine 10mg PO Q4H. Yesterday had added/increased fentanyl, Dilaudid drip, lidocaine patch and duloxetine. Patient is drowsy today, but not lethargic. Pain is at a 6-7 out of 10, goal would be to bring it down to 4/10. However patient is not used to narcotics and there is concern respiratory status may be depressed. Pain management saw patient as well as ONC. Also recommended radiation of the shoulder. They are not here on the weekend. will consult on Friday Originally scheduled for chemo on Friday, but may be postponed. Patient however does not want it postponed. will monitor. Chest pain: Patient has pain whe breathing. C-xray was negative. Patient oxygen sat has not decreased, not tachycardic. Patient seems low risk for P/E. Trop was negative today, EKG did not show significant changes. Had negative trop on admission. ARF: likely related to dehydration given poor recent PO intake Cr 1.2 There was improvement, will continue with fluid. Multiple myeloma: follow with Dr. Smith Is to start chemo on Friday, tentatively. CAD: s/p stent Continue aspirin and statin Trop was negative. Other: Full code Heparin for DVT proph Reg diet Continued [facility] stay due to: multiple IV medications needed Discharge planning: other
[2017-10-18] MEDS: PRAVASTATIN SOD 40 MG TAB PO SCH (21:25)
[2017-10-18] MEDS: hydrOXYzine HCL 25 MG TAB PO SCH (21:26)
[2017-10-19] VITALS (8 sets, daily range): BP systolic 114–134; BP diastolic 68–80; PULSE 101–119; TEMP 36.4–36.8; O2SAT 90–96
[2017-10-19] MEDS: CHECK FENTANYL PATCH PLACEMENT SCH ×3 (00:43→16:00)
[2017-10-19] MEDS: POTASSIUM CHLORIDE INJ 40 MEQ in SODIUM CHLORIDE 0.9% 1000ML 1,000 ML IV SCH ×2 (04:55→13:42)
[2017-10-19] MEDS: LIDODERM (LIDOCAINE) PATCH 5% TD SCH (08:36)
[2017-10-19] MEDS: HYDROmorphone HCL 0.5MG/ML 50 ML CASSETTE IV PRN (08:36)
[2017-10-19] MEDS: DOCUSATE SODIUM/SENNA 50/8.6MG TAB PO SCH ×2 (08:37→21:48)
[2017-10-19] MEDS: DOCUSATE SODIUM 100 MG CAP PO SCH ×2 (08:37→21:47)
[2017-10-19] MEDS: OMEGA-3 (PURIFIED FISH OIL) 1 GM CAP PO SCH (08:37)
[2017-10-19] MEDS: CHOLECALCIFEROL 1000 INTER.UNIT TAB PO SCH (08:37)
[2017-10-19 08:39] LABS: HEMATOCRIT 27.7 % (42-52); HEMOGLOBIN 9.7 g/dL (14.0-18.0); MEAN CELL VOLUME 91.4 fL (80-100); MEAN PLATELET VOLUME 8.2 fL (7.4-10.4); NUCLEATED RED BLOOD CELL ABS 0.02 K/uL (0-0); PLATELET COUNT 137 K/uL (130-400); RED CELL DISTRIBUTION WIDTH CV 17.7 % (11.5-14.5); RED CELL DISTRIBUTION WIDTH SD 59.3 fL (36.4-46.3); WHITE BLOOD COUNT 4.42 K/uL (4.8-10.8)
[2017-10-19] MEDS: ASPIRIN 81 MG ECTAB PO SCH (08:44)
[2017-10-19] MEDS: OXYCODONE HCL IR 5 MG TAB (IMMEDIATE RELEASE) PO PRN (08:46)
[2017-10-19] MEDS: DULOXETINE (CYMBALTA) 30 MG CAP PO SCH (08:47)
[2017-10-19 08:57] LABS: BLOOD UREA NITROGEN 13 mg/dl (7-18); CALCIUM 8.8 mg/dl (8.5-10.1); CARBON DIOXIDE 25 mmol/L (21-32); CREATININE 1.18 mg/dl (0.60-1.40); GLUCOSE 109 mg/dl (70-99); POTASSIUM 3.9 mmol/L (3.5-5.1); SODIUM 132 mmol/L (136-145)
[2017-10-19] MEDS: HEPARIN SOD 5000 UNIT/0.5 ML CARP SQ SCH ×2 (09:00→21:53)
[2017-10-19] MEDS: SODIUM CHLORIDE 0.9% 1000ML 1,000 ML IV SCH (09:02)
--- NOTE | 2017-10-19 10:14 | Hematology/Oncology Prog Note ---
Hematology/Onc Progress Note Date of Service Oct 19, 2017. Diagnoses Multiple myeloma Chest pain/shortness of breath Intractable pain Medications Medications Administered Medications (Trade) Dose Ordered Sig/Malik Route Start Time Stop Time Status Last Admin Dose Admin Morphine Sulfate (MoRPHine SULFATE INJ) 8 mg NOW STAT IV 10/16/17 12:07 10/16/17 12:10 DC 10/16/17 12:32 8 MG Sodium Chloride 1,000 ml @ 999 mls/hr Q1H1M STAT IV 10/16/17 12:07 10/16/17 13:07 DC 10/16/17 12:32 999 MLS/HR Heparin Sodium (Porcine) (Heparin Sq 5000 Unit/0.5ml) 5,000 unit Q12H SQ 10/16/17 21:00 11/15/17 20:59 10/18/17 21:35 5,000 UNIT Morphine Sulfate (MoRPHine SULFATE INJ) 1 mg Q2H PRN IV 10/16/17 17:30 10/17/17 09:06 DC 10/17/17 07:58 1 MG Hydromorphone HCl (Dilaudid Inj) 0.5 mg Q2H PRN IV 10/16/17 17:30 10/17/17 08:55 DC 10/17/17 05:29 0.5 MG Aspirin (Ecotrin Tab) 81 mg DAILY PO 10/17/17 08:00 11/16/17 08:59 10/19/17 08:44 81 MG Cholecalciferol (Vitamin D Tab) 1,000 inter.unit DAILY PO 10/17/17 08:00 11/16/17 08:59 10/19/17 08:37 1,000 INTER.UNIT Senna/Docusate Sodium (Senokot S Tab) 1 tab BID PO 10/16/17 20:00 11/15/17 20:59 10/19/17 08:37 1 TAB Hydroxyzine HCl (Vistaril Tab) 50 mg HS PO 10/16/17 21:00 11/15/17 20:59 10/18/17 21:26 50 MG Fish Oil ([place]-3 (Purified Fish Oil) Cap) 1 gm QAM PO 10/17/17 08:00 11/16/17 08:59 10/19/17 08:37 1 GM Oxycodone HCl (Roxicodone Immediate Rel Tab) 10 mg Q4H PRN PO 10/16/17 17:30 11/15/17 17:29 10/19/17 08:46 10 MG Pravastatin Sodium (Pravachol Tab) 80 mg HS PO 10/16/17 21:00 11/15/17 20:59 10/18/17 21:25 80 MG Potassium Chloride 40 meq/ Sodium Chloride 1,020 ml @ 100 mls/hr [id number] IV 10/17/17 00:30 11/16/17 00:29 10/19/17 04:55 100 MLS/HR Hydromorphone HCl (Dilaudid Inj) 1 mg Q2H PRN IV 10/17/17 09:00 10/17/17 10:30 DC 10/17/17 09:09 1 MG Fentanyl (Duragesic Patch) 25 mcg Q72H TD 10/17/17 09:15 10/31/17 09:14 10/17/17 10:40 25 MCG Miscellaneous Information (Check Fentanyl Patch Placement) 1 ea QS N/A 10/17/17 16:00 11/16/17 15:59 10/19/17 08:00 1 EA Hydromorphone HCl (Dilaudid Statistical Assistant) 25 mg PRN PRN IV 10/17/17 09:15 10/31/17 09:14 10/19/17 08:36 25 MG Docusate Sodium (coLACE CAP) 100 mg BID PO 10/17/17 20:00 11/16/17 19:59 10/19/17 08:37 100 MG Duloxetine HCl (Cymbalta Cap) 30 mg QAM PO 10/18/17 08:00 11/17/17 07:59 10/19/17 08:47 30 MG Duloxetine HCl (Cymbalta Cap) 30 mg NOW STAT PO 10/17/17 10:27 10/17/17 10:29 DC 10/17/17 11:11 30 MG Lidocaine (Lidoderm Patch 5%) 1 patch QAM TD 10/17/17 09:15 11/16/17 09:14 10/19/17 08:36 1 PATCH Miscellaneous (Remove Lidoderm Patch) 1 ea DAILY@21 N/A 10/17/17 21:00 11/16/17 20:59 10/17/17 21:17 1 EA Subjective Mr. Anders looks comfortable, though he complains of some chest tightness and pain, particularly when he takes a deep breath. He was worked up for this yesterday, including a cardiac evaluation that was negative. He has no calf swelling, tenderness, or redness. 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 He started a low-dose fentanyl patch yesterday. Review of Systems: Constitutional: + fatigue Respiratory: + shortness of breath Cardiovascular: + chest pain, No edema Abdomen: No pain, No nausea, No vomiting Musculoskeletal: + joint pain Heme: No abnormal bleeding/bruising Vital Signs Vital Signs Past 12 Hours Date Time Temp Pulse Resp B/P (MAP) Pulse Ox O2 Delivery O2 Flow Rate FiO2 10/19/17 07:56 36.6 119 18 121/76 (91) 95 Room Air 10/19/17 04:34 36.8 101 20 118/68 (85) 92 2.0 10/19/17 00:25 36.7 103 18 114/77 (89) 90 Nasal Cannula 2.0 10/19/17 00:00 Nasal Cannula 3.0 Physical Exam Constitutional: General Apperance: heathly-appearing Level of Distress: NAD Psychiatric: Mental Status: active & alert Orientation: oriented except where noted Lungs: Auscuitation: breath sounds normal Cardiovascular: Heart Auscultation: tachycardia Abdomen: Inspection & Palpation: soft, no tenderness, guarding & rebound Extremities: no edema Laboratory Last 24 Hours Test 10/18/17 12:19 10/19/17 08:20 Troponin I < 0.015 ng/ml < 0.015 ng/ml White Blood Count 4.42 K/uL Red Blood Count 3.03 M/uL Hemoglobin 9.7 g/dL Hematocrit 27.7 % Mean Corpuscular Volume 91.4 fL Mean Corpuscular Hemoglobin 32.0 pg Mean Corpuscular Hemoglobin Concent 35.0 g/dl RDW Standard Deviation 59.3 fL RDW Coefficient of Variation 17.7 % Platelet Count 137 K/uL Mean Platelet Volume 8.2 fL Nucleated RBC Absolute Count (auto) 0.02 K/uL Nucleated Red Blood Cells % 0.5 % Sodium Level 132 mmol/L Potassium Level 3.9 mmol/L Chloride Level 102 mmol/L Carbon Dioxide Level 25 mmol/L Anion Gap 5.0 mmol/L Blood Urea Nitrogen 13 mg/dl Creatinine 1.18 mg/dl Est Creatinine Clear Calc Drug Dose 67.4 ml/min Estimated GFR () 77.8 Estimated GFR (Non- 67.1 BUN/Creatinine Ratio 11.0 Random Glucose 109 mg/dl Calcium Level 8.8 mg/dl Assessment & Plan Mr. Anders is improving from a pain standpoint. A CT the other day revealed some lytic lesions in his scapula. I would consider a radiation oncology consultation to discuss palliative RT. He is also now on a STOPPING BUILDER and is titrating up a fentanyl patch. His chest tightness and shortness of breath is a bit worrisome for a PE. He had a CTA 2 days ago that was negative and does not have any evidence of a DVT. Still, he is a cancer patient and is at high risk for VTEs. He is also tachycardic and requiring a small amount of oxygen. One option might be to check an ABG to see if he has an A-a gradient. If so, a repeat CTA might be appropriate. He should hold off on starting his myeloma therapy until he is out of the hospital and feeling better.
--- NOTE | 2017-10-19 13:52 | Progress Note ---
Progress Note Date of Service Oct 19, 2017. Progress Note Had discussion with nursing staff on plan of patient. Currently here for intractable pain. Developed pressure like chest pain yesterday with some atypical and pleuritic symptoms. Pain continued throughout the day. However patient on inspection does not appear to be in any distress. Ordered an EKG which showed an old infarct with no significant changes. Patient did not worsen throughout the day and did not appear to be in any distress during my multiple encounters. Wells criteria on patient is 4 points, which on 2 tier model means unlikely Pulmonary embolism. Nursing staff however is very concerned that this can be a PE. Patient though had on the which was negative for Pulmonary embolism. Patient states he never had a DVT or P/E in past. Onc. examined patient and had discussion with me that he agrees it does not appear to be pulmonary embolism, especially given his negative CTA on the . He stated though if I suspect Pulmonary embolism to order an ABG to assess for a -a gradient, but he would leave it up to me. Nursing staff informed me that he note suggested an ABG and to see if I would order one. I stated that I would think about it. Patient today does not appear to be any worse today regarding his breathing on questioning. Lungs sound clear and lower extremities do not show any clinical findings for DVT. Patient though is tachycardic which may be due to pain from his myeloma. Informed staff that I will be getting an ABG. However, I would not want to aggressively pursue another CT scan given that he was just in renal failure and do not want to cause harm and create a new problem, unless left with no other choice. D/W Hospitalist steam box hand who agrees with my assessment
--- NOTE | 2017-10-19 17:26 | Pulmonary Consultation ---
History General Date of Service: Oct 19, 2017. Stated Complaint: Mild hypoxemia HPI The patient is a 57 year old male who presents to [facility] with complaints of Dehydration,Lytic Bone Lesions On Xray. The patient's primary care provider is No Doctor, Assigned. 57-year-old gentleman is admitted 10/16/2017 for extreme right shoulder pain to the point he was unable to move. 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 He was also recently admitted to the [facility] from 09/27/2017 through 10/02/2017 with septic shock secondary to it appears acute diverticulitis. During our conversation the patient actually denied any shortness of breath but when I took him off his oxygen supplementation his saturations ranged anywhere from 83- 94%. Patient does note that he has a band like discomfort across the lower ribs approximately T8 through T9 regions. During our conversation though this discomfort also did rotate into the left anterior chest wall as well. He and his described on the day of admission severe right shoulder verses apical pain almost consistent with bony are pleuritic involvement. At this time the patient denies subjective: Fever, chills, cough, productive cough or classic cardiac chest pain. Echocardiogram 09/28/2017 LV: EF=45%, LVH RV: TAPSE >1.5cm PmHx: 1. Right L5 motor radiculopathy/slight based off EMG study performed 09/12/1997 2. Peptic ulcer disease 3. Myocardial infarction/coronary artery disease 2000 4. PVD 5. Aortoiliac occlusive disease/rt common ext and common femoral artery occlusion 6. IgG kappa multiple myeloma with plasmablastic differentiation 7. Lytic bone lesions, mass T6 -T8 8. Diverticulosis 9. Anemia 10. History septic shock 11. Cardiomyopathy with an EF of 45% 12. Emphysema based off CT imaging PsHx: 1. L4-5 hemilaminotomies, foraminotomy, lysis of epidural adhesions 2. Repeat L4-5 hemilaminotomies, foraminotomy, lysis of epidural adhesions 3. Arteriogram 07/21/2012 4. Aortobifemoral bypass 2012 5. Laminectomy, resection of spinal cord mass with ten stabilization Pearl 6. Bone marrow biopsy 09/15/2017 Social history Tobacco: Former smoker half a pack per day Alcohol: History of abuse General status: Family history Father: Coronary artery disease status post CABG Review of Systems Difficult historian is the patient is currently on a [employer] fentanyl drip Constitutional: reports: weakness Eyes: reports: no symptoms ENT: reports: no symptoms Cardiovascular: reports: as stated in HPI Respiratory: reports: as stated in HPI Gastrointestinal: reports: no symptoms Genitourinary - Male: reports: no symptoms Musculoskeletal: reports: as stated in HPI Integumentary: reports: no symptoms Neurologic: reports: no symptoms, other Psychiatric: reports: no symptoms Endocrine: no symptoms Hematologic / Lymphatic: no symptoms Allergic / Immunologic: no symptoms Past Medical History Past Medical History: Please refer to HPI Past Surgical History: Please refer to HPI Family History Cancer Please refer to HPI Social History Please refer to [facility] Hx Tobacco Use In Past Year?: No Smoking Status: Former Smoker Marital status: Housing status: lives with family Occupational Status: employed Immunizations History of Influenza Vaccine: Unknown History of Tetanus Vaccine?: Unknown History of Pneumococcal: Unknown History of Hepatitis B Vaccine: Unknown History of MDRO History of MDRO: No Allergies Coded Allergies: Atorvastatin (Verified Adverse Reaction, Unknown, myalgias, 10/16/17) Simvastatin (Verified Adverse Reaction, Unknown, myalgias, 10/16/17) Current Medications Reported Home Medications Medications Dose Route/Sig Max Daily Dose Days Date Category Vitamin D3 (Cholecalciferol) 1,000 Unit Tab 1 Tab PO DAILY 10/16/17 Reported Pravachol (Pravastatin Sodium) 80 Mg Tab 1 Tab PO DAILY 10/16/17 Reported Vistaril (Hydroxyzine Pamoate) 25 Mg Cap 2 Cap PO HS 10/16/17 Reported Oxycodone Hcl 10 Mg Tab 1 Tab PO Q4H PRN 09/27/17 Reported Docusate Sodium/Senna (Sennosides-Docusate Sodium) 1 Tab Tab 1 Tab PO BID 09/27/17 Reported Garlic 500 Mg Cap 1,000 Mg PO QAM 08/30/17 Reported Fish Oil ([place]-3 Fatty Acids) 1 Cap Cap 1 Cap PO QAM 08/30/17 Reported Aspirin Ec (Aspirin) 81 Mg Tab 81 Mg PO DAILY 08/30/17 Reported Physical Physical Exam Vital Signs: Date Time Temp Pulse Resp B/P (MAP) Pulse Ox O2 Delivery O2 Flow Rate FiO2 10/19/17 15:28 36.4 107 18 121/80 (94) 96 Nasal Cannula 3.0 10/19/17 11:31 36.4 112 18 134/76 (95) 95 Nasal Cannula 3.0 10/19/17 08:00 95 Room Air 2.0 10/19/17 07:56 36.6 119 18 121/76 (91) 95 Room Air 10/19/17 04:34 36.8 101 20 118/68 (85) 92 2.0 10/19/17 00:25 36.7 103 18 114/77 (89) 90 Nasal Cannula 2.0 10/19/17 00:00 Nasal Cannula 3.0 10/18/17 20:00 Nasal Cannula 3.0 10/18/17 19:59 36.8 112 18 117/71 (86) 94 2.0 General Appearance: WELL-APPEARING, NO APPARENT DISTRESS Head: NORMOCEPHALIC, ATRAUMATIC Eyes: PERRLA, NO DISCHARGE, EOMI, SCLERAE NORMAL ENT: NORMAL EAR EXAM, NORMAL NASAL EXAM, NORMAL MOUTH EXAM, NORMAL THROAT EXAM , NORMAL DENTAL EXAM, ext. canal abnormal right Neck: NORMAL RANGE OF MOTION, NO TENDERNESS, TRACHEA MIDLINE Respiratory: other (Decreased breath sounds with some mild rhonchi at the bases bilaterally) Cardiovasular: REGULAR RATE/RHYTHM, NORMAL S1S2, NO M/G/R, NO MURMUR, NO GALLOP Abdomen: other (Mildly distended with minimal bowel sounds but no tenderness to deep palpation or rebound noted) Genitourinary - Male: EXTERNAL GENITALIA NORMAL Back: other (Patient asked me not to turn him and do full evaluation of his back) Upper Extremities: NO EDEMA, NO DEFORMITY, NORMAL ROM Lower Extremities: NO EDEMA, NO DEFORMITY, NORMAL ROM Pulses: carotid (R) (1+), carotid (L) (1+), dorsalis pedis (R) (1+), dorsalis pedis (L) Neuro: ALERT, ORIENTED x 3, lethargic Reflexes: biceps (R) (2+), bicpes (L) (1+), patellar (R) (2+), patellar (L) (2+ ) Babinski Testing: right (downgoing), left (downgoing) Psychiatric: flat affect Diagnostics Labs Results Past 24 Hours Test 10/19/17 08:20 10/19/17 13:24 Range/Units White Blood Count 4.42 4.8-10.8 K/uL Red Blood Count 3.03 4.7-6.1 M/uL Hemoglobin 9.7 14.0-18.0 g/dL Hematocrit 27.7 42-52 % Mean Corpuscular Volume 91.4 80-100 fL Mean Corpuscular Hemoglobin 32.0 25-34 pg Mean Corpuscular Hemoglobin Concent 35.0 32-36 g/dl RDW Standard Deviation 59.3 36.4-46.3 fL RDW Coefficient of Variation 17.7 11.5-14.5 % Platelet Count 137 130-400 K/uL Mean Platelet Volume 8.2 7.4-10.4 fL Nucleated RBC Absolute Count (auto) 0.02 0-0 K/uL Nucleated Red Blood Cells % 0.5 % Sodium Level 132 136-145 mmol/L Potassium Level 3.9 3.5-5.1 mmol/L Chloride Level 102 98-107 mmol/L Carbon Dioxide Level 25 21-32 mmol/L Anion Gap 5.0 3-11 mmol/L Blood Urea Nitrogen 13 7-18 mg/dl Creatinine 1.18 0.60-1.40 mg/dl Est Creatinine Clear Calc Drug Dose 67.4 ml/min Estimated GFR () 77.8 Estimated GFR (Non- 67.1 BUN/Creatinine Ratio 11.0 10-20 Random Glucose 109 70-99 mg/dl Calcium Level 8.8 8.5-10.1 mg/dl Troponin I < 0.015 0-0.045 ng/ml Arterial Blood pH 7.45 7.35-7.45 Arterial Blood Partial Pressure CO2 38 35-46 mmHg Arterial Blood Partial Pressure O2 77 80-95 mm/Hg Arterial Blood HCO3 26 19-24 mmol/L Arterial Blood Oxygen Saturation 92.8 90-95 % Arterial Blood Base Excess 1.8 -9-1.8 mEq/L Arterial Blood Gas Delivery 2L Lito Test POS POS Diagnostic Radiology Please refer to HPI EKG Sinus tachycardia rate 108 occasional PVCs noted Impression Assessment and Plan 57-year-old gentleman with plasma blastic myeloma and diffuse involvement admitted for right shoulder pain and now with mild hypoxemia: 1. Hypoxemia: I do not believe at this time the patient is having any acute illness such as infection, myocardial infarction or pulmonary emboli causing some mild hypoxemia. His AA gradient is only 46.5 and the patient has been well worked up recently for pulmonary emboli as well as myocardial event. I do believe that the patient does have mild hypoventilation and possibly even atelectasis of the lower lobes not well defined on his current low volume x- ray. Also I think the patient is having some decreased gastric clearance as he has increasing gastric bubble noted on the CXR that is most likely adding to his mild difficulty with inspiration. To perform a more thorough workup so I will order noncontrast CT of the chest to help better define the possible atelectasis as well as DVT studies of the lower extremities for a further evaluation. I am wondering if the patient's shoulder discomfort was actually possibly referred plain from pleuritic involvement of his underlying malignancy which could suggest pulmonary manifestations which has been noted in this disorder which could also be adding to his increasing hypoxemia. I did speak to Oncology about this particular issue and it would not change his overall treatment for his underlying disease so performing further evaluation with bronchoscopy would not be warranted.
[2017-10-19] MEDS: hydrOXYzine HCL 25 MG TAB PO SCH (21:48)
[2017-10-19] MEDS: PRAVASTATIN SOD 40 MG TAB PO SCH (21:48)
--- NOTE | 2017-10-19 23:42 | Progress Note ---
Subjective Date of Service: Oct 19, 2017. Subjective Patient has no change in symtoms today. Patient continues to have 7/10 pain. Patient also reports the same chest pain as yesterday. Problem List Medical Problems: (1) Dehydration Status: Acute (2) Dehydration Status: Acute (3) Multiple myeloma Status: Chronic (4) Rib pain on right side Status: Acute Review of Systems All Other Systems: Reviewed and Negative Medications Current Inpatient Medications Medications (Trade) Dose Ordered Sig/Malik Route Start Time Stop Time Status Last Admin Dose Admin Ioversol (Optiray 320) 100 ml UD PRN IV 10/16/17 12:15 10/20/17 12:14 Acetaminophen (Tylenol Tab) 650 mg Q4H PRN PO 10/16/17 17:30 11/15/17 17:29 Magnesium Hydroxide (Milk Of Magnesia Susp) 30 ml Q6H PRN PO 10/16/17 17:30 11/15/17 17:29 Ondansetron HCl (Zofran Inj) 4 mg Q6H PRN IV 10/16/17 17:30 11/15/17 17:29 Heparin Sodium (Porcine) (Heparin Sq 5000 Unit/0.5ml) 5,000 unit Q12H SQ 10/16/17 21:00 11/15/17 20:59 10/19/17 21:53 5,000 UNIT Aspirin (Ecotrin Tab) 81 mg DAILY PO 10/17/17 08:00 11/16/17 08:59 10/20/17 08:23 81 MG Cholecalciferol (Vitamin D Tab) 1,000 inter.unit DAILY PO 10/17/17 08:00 11/16/17 08:59 10/20/17 08:22 1,000 INTER.UNIT Senna/Docusate Sodium (Senokot S Tab) 1 tab BID PO 10/16/17 20:00 11/15/17 20:59 10/20/17 08:22 1 TAB Hydroxyzine HCl (Vistaril Tab) 50 mg HS PO 10/16/17 21:00 11/15/17 20:59 10/19/17 21:48 50 MG Fish Oil ([place]-3 (Purified Fish Oil) Cap) 1 gm QAM PO 10/17/17 08:00 11/16/17 08:59 10/20/17 08:22 1 GM Oxycodone HCl (Roxicodone Immediate Rel Tab) 10 mg Q4H PRN PO 10/16/17 17:30 11/15/17 17:29 10/19/17 08:46 10 MG Pravastatin Sodium (Pravachol Tab) 80 mg HS PO 10/16/17 21:00 11/15/17 20:59 10/19/17 21:48 80 MG Potassium Chloride 40 meq/ Sodium Chloride 1,020 ml @ 100 mls/hr [id number] IV 10/17/17 00:30 11/16/17 00:29 10/19/17 13:42 100 MLS/HR Fentanyl (Duragesic Patch) 25 mcg Q72H TD 10/17/17 09:15 10/31/17 09:14 10/17/17 10:40 25 MCG Miscellaneous (Fentanyl Patch Remove & Waste) 1 ea Q3D N/A 10/20/17 09:15 11/19/17 09:14 Miscellaneous Information (Check Fentanyl Patch Placement) 1 ea QS N/A 10/17/17 16:00 11/16/17 15:59 10/20/17 00:09 1 EA Naloxone HCl (Narcan Inj) 0.1 mg Q5M PRN IV 10/17/17 09:15 11/16/17 09:14 Hydromorphone HCl (Dilaudid Bass Viol Repairer) 25 mg PRN PRN IV 10/17/17 09:15 10/31/17 09:14 10/19/17 08:36 25 MG Docusate Sodium (coLACE CAP) 100 mg BID PO 10/17/17 20:00 11/16/17 19:59 10/20/17 08:22 100 MG Magnesium Citrate (Citrate Of Magnesia Soln) 50 ml DAILY PO 10/20/17 08:00 11/19/17 07:59 Sodium Chloride 1,000 ml @ 15 mls/hr Q24H IV 10/17/17 09:02 11/16/17 09:01 Hydromorphone HCl (Dilaudid Inj) 0.5 mg Q2H PRN IV 10/17/17 09:15 10/31/17 09:14 Duloxetine HCl (Cymbalta Cap) 30 mg QAM PO 10/18/17 08:00 11/17/17 07:59 10/20/17 08:22 30 MG Lidocaine (Lidoderm Patch 5%) 1 patch QAM TD 10/17/17 09:15 11/16/17 09:14 10/20/17 08:23 1 PATCH Miscellaneous (Remove Lidoderm Patch) 1 ea DAILY@21 N/A 10/17/17 21:00 11/16/17 20:59 10/19/17 21:48 1 EA Objective Vital Signs Date Time Temp Pulse Resp B/P (MAP) Pulse Ox O2 Delivery O2 Flow Rate FiO2 10/19/17 19:35 36.5 104 20 114/76 (89) 96 Nasal Cannula 2.0 10/19/17 16:00 96 Room Air 2.0 10/19/17 15:28 36.4 107 18 121/80 (94) 96 Nasal Cannula 3.0 10/19/17 11:31 36.4 112 18 134/76 (95) 95 Nasal Cannula 3.0 10/19/17 08:00 95 Room Air 2.0 10/19/17 07:56 36.6 119 18 121/76 (91) 95 Room Air 10/19/17 04:34 36.8 101 20 118/68 (85) 92 2.0 10/19/17 00:25 36.7 103 18 114/77 (89) 90 Nasal Cannula 2.0 10/19/17 00:00 Nasal Cannula 3.0 Physical Exam Comments: General Appearance: WD/WN, no acute distress. Eyes: normal inspection ENT: normal ENT inspection Neck: supple, no adenopathy Respiratory/Chest: lungs clear, normal breath sounds Cardiovascular: regular rate, rhythm, no edema, nontender Abdomen: normal bowel sounds, non tender Extremities: normal range of motion, non-tender Neurologic/Psychiatric: alert, oriented x 3 Skin: normal color Lymphatic: no adenopathy Laboratory Results Last 24 Hours Test 10/19/17 08:20 10/19/17 13:24 White Blood Count 4.42 K/uL Red Blood Count 3.03 M/uL Hemoglobin 9.7 g/dL Hematocrit 27.7 % Mean Corpuscular Volume 91.4 fL Mean Corpuscular Hemoglobin 32.0 pg Mean Corpuscular Hemoglobin Concent 35.0 g/dl RDW Standard Deviation 59.3 fL RDW Coefficient of Variation 17.7 % Platelet Count 137 K/uL Mean Platelet Volume 8.2 fL Nucleated RBC Absolute Count (auto) 0.02 K/uL Nucleated Red Blood Cells % 0.5 % Sodium Level 132 mmol/L Potassium Level 3.9 mmol/L Chloride Level 102 mmol/L Carbon Dioxide Level 25 mmol/L Anion Gap 5.0 mmol/L Blood Urea Nitrogen 13 mg/dl Creatinine 1.18 mg/dl Est Creatinine Clear Calc Drug Dose 67.4 ml/min Estimated GFR () 77.8 Estimated GFR (Non- 67.1 BUN/Creatinine Ratio 11.0 Random Glucose 109 mg/dl Calcium Level 8.8 mg/dl Troponin I < 0.015 ng/ml Arterial Blood pH 7.45 Arterial Blood Partial Pressure CO2 38 mmHg Arterial Blood Partial Pressure O2 77 mm/Hg Arterial Blood HCO3 26 mmol/L Arterial Blood Oxygen Saturation 92.8 % Arterial Blood Base Excess 1.8 mEq/L Arterial Blood Gas Delivery 2L Lito Test POS Assessment and Plan 57 y/o M who was admitted on 10/16 for intractable pain related to lytic lesions Intractable pain: due to lytic lesions from his Multiple myeloma Not controlled on oxycontine 10mg PO Q4H. Added/increased fentanyl, Dilaudid drip, lidocaine patch and duloxetine. More awake today Pain is at a 6-7 out of 10, goal would be to bring it down to 4/10. However patient is not used to narcotics and there is concern respiratory status may be depressed. Pain management saw patient as well as ONC. Also recommended radiation of the shoulder. They are not here on the weekend. placed consult Originally scheduled for cancer treatment on Friday, but this has been postponed due to his p=uncontrollled pain Patient understands why this has anne postponed Chest pain: Unlikely csichemic event due to neg workup/ Unlikely Pulmonary embolism either due to neg workup. Pulmonary suggests this may be atelectasis or myeloma affecting his lung. However, we can only rule out atelectasis. Bronch would be needed to assess if patient does have changes to his lung and biopsy would be required. Having stated this, treatment would not be different. d/w oncology. if ct scan does not show atelectasis. will do no further workup and blame multiple myeloma. Patient understands this. Informed nursing staff of this ARF: likely related to dehydration given poor recent PO intake Cr 1.2 There was improvement, will continue with fluid. Multiple myeloma: follow with Dr. Smith postponed CAD: s/p stent Continue aspirin and statin Trop was negative. Other: Full code Heparin for DVT proph Reg diet Continued [facility] stay due to: multiple IV medications needed Discharge planning: other
[2017-10-20] VITALS (8 sets, daily range): BP systolic 101–139; BP diastolic 57–91; PULSE 96–109; TEMP 36.3–36.8; O2SAT 91–93; BMI 26.2
[2017-10-20] MEDS: CHECK FENTANYL PATCH PLACEMENT SCH ×3 (00:09→22:25)
[2017-10-20] MEDS ORDERED: MAGNESIUM CITRATE 296 ML/BTL PO SCH (08:00)
[2017-10-20] MEDS: DOCUSATE SODIUM/SENNA 50/8.6MG TAB PO SCH ×2 (08:22→20:50)
[2017-10-20] MEDS: DULOXETINE (CYMBALTA) 30 MG CAP PO SCH (08:22)
[2017-10-20] MEDS: CHOLECALCIFEROL 1000 INTER.UNIT TAB PO SCH (08:22)
[2017-10-20] MEDS: OMEGA-3 (PURIFIED FISH OIL) 1 GM CAP PO SCH (08:22)
[2017-10-20] MEDS: DOCUSATE SODIUM 100 MG CAP PO SCH ×2 (08:22→20:50)
[2017-10-20] MEDS: LIDODERM (LIDOCAINE) PATCH 5% TD SCH (08:23)
[2017-10-20] MEDS: ASPIRIN 81 MG ECTAB PO SCH (08:23)
[2017-10-20] MEDS: SODIUM CHLORIDE 0.9% 1000ML 1,000 ML IV SCH (08:24)
--- NOTE | 2017-10-20 09:05 | DIAGNOSTIC IMAGING REPORT ---
VENOUS DOPPLER LWR EXT BILA HISTORY: Pain. Edema. DVT COMPARISON STUDY: None. FINDINGS: There is normal compressibility, flow, and augmentation within the bilateral lower extremity deep venous systems. IMPRESSION: No DVT within the right or left lower extremity. The above report was generated using voice recognition software. It may contain grammatical, syntax or spelling errors. Electronically signed by: Mohit Winchester M.D. 10/20/2017 9:03 AM Dictated Date/Time: 10/20/2017 9:03 AM
[2017-10-20] MEDS ORDERED: FENTANYL PATCH REMOVE & WASTE SCH (09:15)
[2017-10-20] MEDS: POTASSIUM CHLORIDE INJ 40 MEQ in SODIUM CHLORIDE 0.9% 1000ML 1,000 ML IV SCH ×3 (09:45→20:51)
[2017-10-20] MEDS: FENTANYL 25 MCG/HR TDSY TD SCH (09:48)
[2017-10-20] MEDS: HEPARIN SOD 5000 UNIT/0.5 ML CARP SQ SCH ×2 (09:51→20:52)
[2017-10-20 10:06] LABS: HEMATOCRIT 30.3 % (42-52); HEMOGLOBIN 10.6 g/dL (14.0-18.0); MEAN CELL VOLUME 90.2 fL (80-100); MEAN CORPUSCULAR HEMOGLOBIN 31.5 pg (25-34); MEAN PLATELET VOLUME 8.4 fL (7.4-10.4); PLATELET COUNT 154 K/uL (130-400); RED CELL DISTRIBUTION WIDTH CV 17.8 % (11.5-14.5); RED CELL DISTRIBUTION WIDTH SD 58.5 fL (36.4-46.3); WHITE BLOOD COUNT 4.92 K/uL (4.8-10.8)
--- NOTE | 2017-10-20 10:27 | DIAGNOSTIC IMAGING REPORT ---
(CHEST) THORAX WITHOUT CT DOSE: 404.99 mGy.cm HISTORY: Hypoxemia possible atelectasis TECHNIQUE: Multiaxial CT images of the chest were performed without contrast. A dose lowering technique was utilized adhering to the principles of ALARA. COMPARISON: Chest 10/18/2017. Chest CTA 10/16/2017. FINDINGS: No pneumothorax. Advanced emphysema is again noted. Trace mucoid material within the trachea. No pleural effusions. Focal airspace consolidation within the base of the lower lobes posteriorly. This favors atelectasis. There is also linear density within the superior segment of the left lower lobe scarlike density within the right upper lobe. These remain unchanged. No new focal lung consolidations. The visualized liver and spleen are unremarkable. No significant change in the gastrohepatic lymphadenopathy. No significant change in the lower cervical, mediastinal, and majority of the paravertebral lymphadenopathy. Multiple lytic lesions are again noted throughout the visualized osseous structures consistent with metastatic disease. Posterior fusion from T6 through T8 with pedicle screws and rods. The hardware appears intact. Progressive destruction of the majority of the T3 vertebral body with slight progression of the moderate pathologic compression fracture. Paravertebral soft tissue abnormality at this T3 vertebral body has progressed. This currently measures a maximal thickness of 1.8 cm, previously demonstrating a maximal thickness of 1.4 cm. There appears be slight increase in size in the soft tissue mass centered at the left T7 pedicle. This appears to extend into the central canal/epidural space and likely results in mass effect along the central canal. However, this is suboptimally evaluated due to the metallic artifact at this level. Anterior pericardial lymph nodes/masses remain unchanged. IMPRESSION: 1. Progressive destruction of the majority of the T3 vertebral body with slight progression of the moderate pathologic compression fracture at this level. This is a result of the progressive paravertebral soft tissue mass at this location. 2. Slight progression of the mass centered at the left T7 pedicle. This likely extends into the central canal/epidural space at this location. However, this is suboptimally evaluated due to the metallic artifact at this level. 3. The lower cervical, mediastinal, and gastrohepatic adenopathy is similar to the prior study. 4. Slight progression of the bibasilar densities suggesting atelectasis/scarring. 5. Multiple lytic lesions seen throughout the visualized osseous structures consistent with metastatic disease. Electronically signed by: Rahul Garcia M.D. 10/20/2017 10:26 AM Dictated Date/Time: 10/20/2017 9:17 AM
[2017-10-20 10:32] LABS: CALCIUM 9.6 mg/dl (8.5-10.1); CREATININE 1.27 mg/dl (0.60-1.40)
--- NOTE | 2017-10-20 13:35 | Radiation Oncology Consult ---
Radiation Oncology Consult Date / Reason Oct 20, 2017. Physicians Radiation Oncologist: Dr. Sonny Booth Other Providers: Dr. Smith/Ritu - Medical Oncology Diagnosis (1) Multiple myeloma History of Present Illness I am seeing Mr. Anders in consultation at the request of Dr. Larsen. ECOG PS: 3 Mr. Anders is a 57-year-old gentleman who was recently diagnosed with multiple myeloma. 09/19/2017 --- CT PE protocol ---IMPRESSION: 1. No pulmonary emboli identified. 2. Innumerable lytic skeletal lesions, including a lesion centered within the posterior elements of T7 with pathologic fracture and extensive epidural extension of tumor. Suspected severe central canal narrowing at this level due to the tumor. This likely results in cord compression. The findings are consistent with a neoplastic process and may reflect metastatic disease or lymphoma/multiple myeloma. Findings discussed with Siobhan Williamson at time of dictation. 3. Mildly enlarged left lower cervical, internal mammary chain and upper abdominal lymphadenopathy which suggests metastatic disease or lymphoma. 4. Severe emphysema. 09/19/2017 --- CT of abdomen/pelvis ---IMPRESSION: 1. Innumerable lytic skeletal lesions consistent with a neoplastic process. This may reflect metastatic disease or lymphoma/myeloma. Associated L5 pathologic fracture. 2. Findings suggestive of mild acute sigmoid diverticulitis. An underlying mucosal lesion is considered unlikely but cannot be excluded. 3. Multiple mildly enlarged upper abdominal/para-aortic lymph nodes which may reflect metastatic disease or lymphoma. 09/20/2017 --- patient transferred to [facility] for acute care and neurosurgical evaluation 09/20/2017 --- MRI of brain, MRI of cervical/thoracic/lumbar spine --- IMPRESSION : #1 no acute intracranial abnormality #2 enhancing bony lesions throughout the axial skeletal in a pattern most compatible with multiple myeloma #3 pathologic fracture of T3 with mild vertebral body height loss and anterior displacement of the anterior fracture fragments #4 destructive lesion involving the posterior elements of T6-T8 with encroachment of the spinal cord resulting in severe central canal stenosis at T7 #5 large marrow replacing lesion of the left iliac bone with lateral cortical breakthrough concerning for impending pathologic fracture. 09/21/2017 --- T7 laminectomy, debulking epidural tumor, T6-8 posterior instrumented fusion by Dr. Mera --- epidural mass, biopsy -plasma cell myeloma with plasmablastic morphology; bone, lytic lesion, biopsy -plasma cell myeloma with plasmablastic morphology. 09/27/2017 --- CT of head without contrast --- IMPRESSION: 1. No acute intracranial findings 2. 16 mm lytic focus involving the left anterior parietal bone 10/08/2017 --- medical oncology consultation with Dr. Gregory Smith --- recommendation was for induction treatment consisting of Revlimid, bortezomib and dexamethasone. 10/16/2017 --- patient admitted to [facility] for intractable pain due to lytic lesions 10/16/2017 --- CT of abdomen/pelvis --- IMPRESSION: 1. 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 2. There is a minimal superior endplate compression deformity of L2. This appears new from 09/27/2017 and is likely acute. 3. A large osteolytic lesion is seen in the medial left ilium. Additionally, lesions are present within proximal femora including the left femoral neck. Note that these lesions may be at risk for insufficiency fracture. 4. There is minimal epidural extension of a lesion within the right posterior aspect of the L5 vertebral body. This does not cause significant acquired compromise of the central canal at this time. 5. Abdominal and retroperitoneal lymphadenopathy is similar to the 09/27/2017 examination. 6. There is evidence of resolving diverticulitis of the sigmoid colon. This has improved from 09/27/2017. 7. Emphysema. 8. Additional findings as above. 10/19/2017 --- medical oncology inpatient follow-up by Dr. Raheem Chaney --- recommends repeat CT of chest given patient's chest pain concerning for PE as well as consideration of palliative external beam radiation therapy. 10/20/2017 --- CT of chest without contrast --- IMPRESSION: 1. Progressive destruction of the majority of the T3 vertebral body with slight progression of the moderate pathologic compression fracture at this level. This is a result of the progressive paravertebral soft tissue mass at this location. 2. Slight progression of the mass centered at the left T7 pedicle. This likely extends into the central canal/epidural space at this location. However, this is suboptimally evaluated due to the metallic artifact at this level. 3. The lower cervical, mediastinal, and gastrohepatic adenopathy is similar to the prior study. 4. Slight progression of the bibasilar densities suggesting atelectasis/ scarring. 5. Multiple lytic lesions seen throughout the visualized osseous structures consistent with metastatic disease. We are now seeing the patient in consultation discuss the role of palliative external beam radiation therapy. Currently, the patient's mostly symptomatic from his mid back and upper back. He also states the pain radiates around his right lateral chest wall. Past History Past Medical/Surgical History: [place], Angioplasty/Stent, Gastrointestinal Disorder , Cancer, COPD, Hypertension Social History Smoking Status: Former Smoker Hx Tobacco Use In Past Year?: No Do You Dip or Chew Tobacco: No Hx Alcohol Use: No Hx Substance Use : No Allergies Coded Allergies: Atorvastatin (Verified Adverse Reaction, Unknown, myalgias, 10/16/17) Simvastatin (Verified Adverse Reaction, Unknown, myalgias, 10/16/17) Home Medications Scheduled Aspirin (Aspirin Ec), 81 MG PO DAILY Cholecalciferol (Vitamin D3), 1 TAB PO DAILY Garlic (Garlic), 1,000 MG PO QAM Hydroxyzine Pamoate (Vistaril), 2 CAP PO HS [place]-3 Fatty Acids (Fish Oil), 1 CAP PO QAM Pravastatin Sodium (Pravachol), 1 TAB PO DAILY Sennosides-Docusate Sodium (Docusate Sodium/Senna), 1 TAB PO BID Scheduled PRN Oxycodone Hcl (Oxycodone Hcl), 1 TAB PO Q4H PRN for Moderate Pain Review of Systems Ear/Hearing: Ear Side: Bilateral Hearing Ability: Normal Hearing Aid: None Edema: Present?: No Physical Exam Height: 5 (Feet) 9.00 (Inches) 175.3 (Centimeters) 1.7526 (Meters) Weight: 177 (Pounds) 7.5 (Ounces) 80.500 (Kilograms) 49429.000 (Grams) Date Time Temp Pulse Resp B/P (MAP) Pulse Ox O2 Delivery O2 Flow Rate FiO2 10/20/17 11:18 36.5 101 18 128/80 (96) 93 Room Air 10/20/17 08:00 92 Room Air 10/20/17 07:12 36.5 109 18 128/86 (100) 92 Room Air 10/20/17 04:15 36.8 101 20 125/82 (96) 92 Nasal Cannula 2.0 10/20/17 00:00 Nasal Cannula 2.0 3/18/18 20:00 Nasal Cannula 2.0 10/19/17 19:35 36.5 104 20 114/76 (89) 96 Nasal Cannula 2.0 10/19/17 16:00 96 Room Air 2.0 10/19/17 15:28 36.4 107 18 121/80 (94) 96 Nasal Cannula 3.0 General Appearance: + mild distress Head: normocephalic Eyes: normal inspection ENT: normal ENT inspection Neck: supple, no adenopathy Respiratory/Chest: chest non-tender, lungs clear, normal breath sounds, no respiratory distress Cardiovascular: regular rate, rhythm, no edema, no gallop, no JVD, no murmur Abdomen/GI: normal bowel sounds, non tender, soft Back: + paravertebral tenderness (Thoracic spine) Extremities: normal inspection 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 Laboratory Laboratory Results: were reviewed Pathology Pathology Results: were reviewed, and pertinent findings noted in HPI Imaging Imaging Studies: were reviewed, and pertinent findings noted in HPI Assessment & Recommendations Assessment: Mr. Anders is a 57-year-old gentleman who presents with multiple myeloma. The patient has extensive disease involvement involving the thoracic spine where he is having significant pain his most recent CT of the chest has revealed extensive disease involving the mid and upper thoracic spine. Given his pain and discomfort, we have recommended a course of palliative external beam radiation therapy to the thoracic spine. We did also evaluate him for his right shoulder but given the intensity of pain involving his thoracic spine and the potential disease involving the spinal cord in the mid thoracic spine we have opted to only address the thoracic spine for now. Recommendation: Palliative external beam radiation therapy to the thoracic spine. 300 cGy x 10 fractions - 3000 cGy Plan: 1. CT simulation today for treatment planning. Plan to start radiation therapy as soon as possible. Consent obtained. 2. Continue with management as per primary team and medical oncology. 3. Follow up with medical oncology in the outpatient setting. Rationale/Explanation: We have explained the indications, alternatives, benefits, risks and side effects of radiation therapy to the thoracic spine. We have explained the most common side effects which include but are not limited to skin erythema, skin break down, pulmonary fibrosis, adhesion development, radiation pneumonitis, rib fracture, heart failure and heart disease, esophagitis, development of fistula, fatigue and development of secondary malignancy. We have explained the CT simulation process and treatment planning. We explained what to expect before , during and after treatment on a regular basis. The patient understands and would be willing to consent to treatment. The patient and family had multiple questions which were answered to their full satisfaction. Thank you for allowing us to participate in the care of this patient. This chart was completed in part utilizing [employer] Speech Voice Recognition software. Attempts were made to minimize the grammatical errors, random word insertions, pronoun errors and incomplete sentences. Any formal questions or concerns about the content, text or information contained within the body of this dictation should be directly addressed to the provider for clarification. Sonny Booth MD Department of Radiation Oncology [facility] Total Time (Attending) I spent 30 minutes examining and counseling the patient. I spent 15 minutes completing this note. ALYSSA
--- NOTE | 2017-10-20 14:18 | Pulmonology Progress Note ---
Pulmonary Progress Note Date of Service Oct 20, 2017. Attending Dr. Zeng Subjective Patient seen and examined in bedside chair. CT angiogram and lower extremity duplex negative for clot. Positive for bilateral atelectasis. Patient states that his shortness of breath is resolved at rest but he still gets dyspneic with exertion. Significant pain in the right upper chest. Currently being evaluated for significance of radiation oncology for palliation of pain. Scheduled to begin chemotherapy tomorrow Patient denies fever, chills, night sweats. No significant cough or sputum production. No hemoptysis. Patient has no constitutional symptoms. Primary complaint is right upper chest pain. Objective GENERAL : No acute distress EYES: No icterus, gaze conjugate NOSE: No evidence of epistaxis MOUTH: No lesions or candidiasis NECK: Supple LUNGS: No wheezes or rhonchi. Poor inspiratory effort secondary to pain of upper right chest. Bibasilar crackles. HEART: Regular, rate controlled in the low 90s ABDOMEN: Soft, NT, ND, BS Present EXTREMITIES: No LE edema, pedal pulses intact. NEURO: A&OX3 Assessment & Plan Hypoxia * Patient presents with mild hypoxia. This most likely due to poor inspiratory effort from right upper chest wall pain. 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 * CT scan suggests progression of bibasilar densities suggesting atelectasis and /or scarring DVT prophylaxis * Patient started on heparin sodium 5000 units subcutaneously every 12 hours * Consider Lovenox due to malignancy if no procedures are scheduled Thank you for including us in the care of this patient. Pulmonary will sign off at this time. Please feel free to reconsult should his clinical condition change. Data Medications: Current Inpatient Medications Medications (Trade) Dose Ordered Sig/Malik Route Start Time Stop Time Status Last Admin Dose Admin Acetaminophen (Tylenol Tab) 650 mg Q4H PRN PO 10/16/17 17:30 11/15/17 17:29 Magnesium Hydroxide (Milk Of Magnesia Susp) 30 ml Q6H PRN PO 3/15/18 17:30 11/15/17 17:29 Ondansetron HCl (Zofran Inj) 4 mg Q6H PRN IV 10/16/17 17:30 11/15/17 17:29 Heparin Sodium (Porcine) (Heparin Sq 5000 Unit/0.5ml) 5,000 unit Q12H SQ 10/16/17 21:00 11/15/17 20:59 10/20/17 09:51 5,000 UNIT Aspirin (Ecotrin Tab) 81 mg DAILY PO 10/17/17 08:00 11/16/17 08:59 10/20/17 08:23 81 MG Cholecalciferol (Vitamin D Tab) 1,000 inter.unit DAILY PO 10/17/17 08:00 11/16/17 08:59 10/20/17 08:22 1,000 INTER.UNIT Senna/Docusate Sodium (Senokot S Tab) 1 tab BID PO 10/16/17 20:00 11/15/17 20:59 10/20/17 08:22 1 TAB Hydroxyzine HCl (Vistaril Tab) 50 mg HS PO 10/16/17 21:00 11/15/17 20:59 10/19/17 21:48 50 MG Fish Oil ([place]-3 (Purified Fish Oil) Cap) 1 gm QAM PO 10/17/17 08:00 11/16/17 08:59 10/20/17 08:22 1 GM Oxycodone HCl (Roxicodone Immediate Rel Tab) 10 mg Q4H PRN PO 10/16/17 17:30 11/15/17 17:29 10/19/17 08:46 10 MG Pravastatin Sodium (Pravachol Tab) 80 mg HS PO 10/16/17 21:00 11/15/17 20:59 10/19/17 21:48 80 MG Potassium Chloride 40 meq/ Sodium Chloride 1,020 ml @ 100 mls/hr [id number] IV 10/17/17 00:30 11/16/17 00:29 10/20/17 09:52 100 MLS/HR Fentanyl (Duragesic Patch) 25 mcg Q72H TD 10/17/17 09:15 10/31/17 09:14 10/20/17 09:48 25 MCG Miscellaneous (Fentanyl Patch Remove & Waste) 1 ea Q3D N/A 10/20/17 09:15 11/19/17 09:14 10/20/17 09:51 1 EA Miscellaneous Information (Check Fentanyl Patch Placement) 1 ea QS N/A 10/17/17 16:00 11/16/17 15:59 10/20/17 09:46 1 EA Naloxone HCl (Narcan Inj) 0.1 mg Q5M PRN IV 10/17/17 09:15 11/16/17 09:14 Hydromorphone HCl (Dilaudid Water Meter Mechanic) 25 mg PRN PRN IV 10/17/17 09:15 10/31/17 09:14 10/19/17 08:36 25 MG Docusate Sodium (coLACE CAP) 100 mg BID PO 10/17/17 20:00 11/16/17 19:59 10/20/17 08:22 100 MG Magnesium Citrate (Citrate Of Magnesia Soln) 50 ml DAILY PO 10/20/17 08:00 11/19/17 07:59 Sodium Chloride 1,000 ml @ 15 mls/hr Q24H IV 10/17/17 09:02 11/16/17 09:01 Hydromorphone HCl (Dilaudid Inj) 0.5 mg Q2H PRN IV 10/17/17 09:15 10/31/17 09:14 Duloxetine HCl (Cymbalta Cap) 30 mg QAM PO 10/18/17 08:00 11/17/17 07:59 10/20/17 08:22 30 MG Lidocaine (Lidoderm Patch 5%) 1 patch QAM TD 10/17/17 09:15 11/16/17 09:14 10/20/17 08:23 1 PATCH Miscellaneous (Remove Lidoderm Patch) 1 ea DAILY@21 N/A 10/17/17 21:00 11/16/17 20:59 10/19/17 21:48 1 EA I & O: 24-Hour Column 10/21/17 08:00 Intake Total 800 ml Output Total 400 ml Balance 400 ml Vital Signs: Date Time Temp Pulse Resp B/P (MAP) Pulse Ox O2 Delivery O2 Flow Rate FiO2 10/20/17 11:18 36.5 101 18 128/80 (96) 93 Room Air 10/20/17 08:00 92 Room Air 3/19/18 07:12 36.5 109 18 128/86 (100) 92 Room Air 10/20/17 04:15 36.8 101 20 125/82 (96) 92 Nasal Cannula 2.0 10/20/17 00:00 Nasal Cannula 2.0 10/19/17 20:00 Nasal Cannula 2.0 10/19/17 19:35 36.5 104 20 114/76 (89) 96 Nasal Cannula 2.0 10/19/17 16:00 96 Room Air 2.0 10/19/17 15:28 36.4 107 18 121/80 (94) 96 Nasal Cannula 3.0 Laboratory Results: Last 24 Hours Test 10/20/17 09:49 White Blood Count 4.92 K/uL Red Blood Count 3.36 M/uL Hemoglobin 10.6 g/dL Hematocrit 30.3 % Mean Corpuscular Volume 90.2 fL Mean Corpuscular Hemoglobin 31.5 pg Mean Corpuscular Hemoglobin Concent 35.0 g/dl RDW Standard Deviation 58.5 fL RDW Coefficient of Variation 17.8 % Platelet Count 154 K/uL Mean Platelet Volume 8.4 fL Sodium Level 130 mmol/L Potassium Level 4.0 mmol/L Chloride Level 99 mmol/L Carbon Dioxide Level 26 mmol/L Anion Gap 5.0 mmol/L Blood Urea Nitrogen 10 mg/dl Creatinine 1.27 mg/dl Est Creatinine Clear Calc Drug Dose 62.7 ml/min Estimated GFR () 71.2 Estimated GFR (Non- 61.4 BUN/Creatinine Ratio 8.0 Random Glucose 100 mg/dl Calcium Level 9.6 mg/dl
--- NOTE | 2017-10-20 14:30 | ECHOCARDIOGRAM REPORT ---
*NOTICE TO RECEIVING [employer] This information is strictly Confidential and protected under [place] law. [place] law prohibits you from making any further disclosure of this information unless further disclosure is expressly permitted by the written consent of the person to whom it pertains or is authorized by law. A general authorization for the release of medical or other information is not sufficient for this purpose. Hospital accepts no responsibility if the information is made available to any other person, INCLUDING THE PATIENT. Interpretation Summary * Name: KAITLIN BUI Study Date: 10/20/2017 07:44 AM BP: 134/76 mmHg * Patient Location: .4E\S\E412\S\1 HR: 106 * : 1960 (M/d/yyyy) Gender: Male Height: 69 in * Age: 57 yrs Ethnicity: CA Weight: 177 lb * Ordering Physician: Jay Larsen * Referring Physician: Self, Referred * Performed By: Yamile Cobb [facility] * * Reason For Study: SOB ON EXERTION / CHEST PAIN * BSA: 2.0 m2 * -- Conclusions -- * 1. Top-normal left ventricular size. Mildly to moderately reduced systolic function. EF 40-45%. Akinesis of the basal septum, basal inferior wall, and base to mid inferolateral wall. Hypokinesis of the lateral base. Mild left ventricular hypertrophy. * 2. Mild to moderate mitral regurgitation in limited views. * 3. Sclerotic aortic valve (limited analysis). * 4. Limited 2D images with spectral Doppler in limited color Doppler. * 5. Compared to prior study on 09/28/2017, LV wall motion abnormalities and systolic function are without significant change. Procedure Details * Limited views were obtained. Left Ventricle * Top-normal left ventricular size. Mildly to moderately reduced systolic function. EF 40-45%. Akinesis of the basal septum, basal inferior wall, and base to mid inferolateral wall. Hypokinesis of the lateral base. Mild left ventricular hypertrophy. Right Ventricle * The right ventricle is normal in size and function. Atria * The left atrium is borderline dilated. * Right atrial size is normal. Mitral Valve * Mild to moderate mitral regurgitation in limited views. Tricuspid Valve * The tricuspid valve is not well visualized, but is grossly normal. * Significant tricuspid regurgitation is absent. Aortic Valve * The aortic valve is trileaflet. * Sclerotic aortic valve. * No hemodynamically significant valvular aortic stenosis. * Spectral Doppler suggests aortic regurgitation however this was a limited study and therefore color flow images are not limited. Pulmonic Valve * The pulmonic valve is not well visualized. Great Vessels * The aortic root is normal size. Pericardium/Pleural * There is no pericardial effusion. Great Vessels * Normal inferior vena cava size and collapsability with sniff indicates a normal right atrial pressure of 3 mmHg MMode 2D Measurements and Calculations IVSd 1.3 cm IVSs 1.9 cm LVIDd 5.2 cm LVIDs 4.1 cm LVPWd 1.1 cm LVPWs 1.8 cm IVS/LVPW 1.2 FS 20.6 % EDV(Teich) 130.6 ml ESV(Teich) 76.0 ml EF(Teich) 41.8 % EDV(cubed) 142.2 ml ESV(cubed) 71.1 ml EF(cubed) 50.0 % % IVS thick 42.8 % % LVPW thick 63.7 % LV mass(C)d 251.7 grams LV mass(C)dI 128.3 grams/m\S\2 LV mass(C)s 337.7 grams LV mass(C)sI 172.2 grams/m\S\2 SV(Teich) 54.6 ml SI(Teich) 27.8 ml/m\S\2 SV(cubed) 71.1 ml SI(cubed) 36.3 ml/m\S\2 Ao root diam 3.4 cm Ao root area 9.1 cm\S\2 ACS 1.5 cm LA dimension 4.2 cm LA/Ao 1.2 LVOT diam 2.2 cm LVOT area 3.8 cm\S\2 LVAd ap4 38.5 cm\S\2 LVLd ap4 8.2 cm EDV(MOD-sp4) 155.5 ml EDV(sp4-el) 154.5 ml LVAs ap4 27.5 cm\S\2 LVLs ap4 7.5 cm ESV(MOD-sp4) 91.4 ml ESV(sp4-el) 85.2 ml EF(MOD-sp4) 41.2 % EF(sp4-el) 44.8 % LVAd ap2 35.2 cm\S\2 LVLd ap2 8.1 cm EDV(MOD-sp2) 130.4 ml EDV(sp2-el) 130.0 ml LVAs ap2 26.2 cm\S\2 LVLs ap2 7.4 cm ESV(MOD-sp2) 83.7 ml ESV(sp2-el) 79.6 ml EF(MOD-sp2) 35.8 % EF(sp2-el) 38.8 % LVLd %diff 1.2 % EDV(MOD-bp) 146.8 ml LVLs %diff -2.85 % ESV(MOD-bp) 84.5 ml EF(MOD-bp) 42.4 % SV(MOD-sp4) 64.0 ml SI(MOD-sp4) 32.7 ml/m\S\2 SV(MOD-sp2) 46.6 ml SI(MOD-sp2) 23.8 ml/m\S\2 SV(MOD-bp) 62.3 ml SI(MOD-bp) 31.8 ml/m\S\2 SV(sp4-el) 69.3 ml SI(sp4-el) 35.3 ml/m\S\2 SV(sp2-el) 50.5 ml SI(sp2-el) 25.7 ml/m\S\2 Doppler Measurements and Calculations Ao V2 max 207.5 cm/sec Ao max PG 17.2 mmHg Ao max PG (full) 15.0 mmHg Ao V2 mean 139.4 cm/sec Ao mean PG 9.1 mmHg Ao mean PG (full) 7.8 mmHg Ao V2 VTI 38.1 cm SARAH(I,A) 1.7 cm\S\2 SARAH(I,D) 1.7 cm\S\2 SARAH(V,A) 1.4 cm\S\2 SARAH(V,D) 1.4 cm\S\2 LV V1 max PG 2.2 mmHg LV V1 mean PG 1.3 mmHg LV V1 max 73.6 cm/sec LV V1 mean 53.8 cm/sec LV V1 VTI 16.7 cm MR max bianca 579.8 cm/sec MR max PG 134.5 mmHg SV(Ao) 345.9 ml SI(Ao) 176.4 ml/m\S\2 SV(LVOT) 64.0 ml SI(LVOT) 32.6 ml/m\S\2
--- NOTE | 2017-10-20 15:09 | Pain Management Progress Note ---
Pain Management Progress Note Date of Service Oct 20, 2017. Subjective Could not see the patient this morning as he was in CT scan. He has used 10mg IV Dilaudid over the last 24 hours and has used the Oxycodone 10mg once yesterday. Case discussed with Dr. Bianca Boswell Objective Vital Signs: Last Vital Signs Documentation Date Time Temp Pulse Resp B/P (MAP) Pulse Ox O2 Delivery O2 Flow Rate FiO2 10/20/17 11:18 36.5 101 18 128/80 (96) 93 Room Air 10/20/17 04:15 2.0 Physical Exam: unable to perform physical exam Laboratory Laboratory Findings 10/20/17 09:49 Assessment 1. Multiple myeloma with multiple osseous lytic lesions including the left femur, left pelvis, right scapula and multiple ribs predominantly right-sided, acute L2 compression fracture 2. Recent T7 vertebral body fracture status post instrumentation at [facility] 3. Acute pain secondary to numbers 1 and 2 4. Opioid-induced constipation 5. Multiple thoracic compression fractures Recommendations 1. Will increase Fentanyl patch to 50mcg/hr. 2. Discontinue Dilaudid ANESTHESIOLOGIST 3. Will initiate Dilaudid 1mg x 3 hours IV if not controlled with PO medication. 4. Continue Oxycodone 10mg PO for pain. 4. Will continue to follow.
--- NOTE | 2017-10-20 16:04 | Hospitalist Progress Note ---
Hospitalist Progress Note Date of Service Oct 20, 2017. (Ilana Molina ., KARTIKC) Subjective Pt evaluation today including: conversation w/ patient, physical exam, chart review, lab review, review of studies, review of inpatient medication list Pain: 10/10 sharp right shoulder pain at time of my exam PO Intake: Tolerating PO diet Voiding: no voiding problems Patient complains of 10/10 sharp right shoulder pain at time of my exam earlier this morning. He states the pain is intermittent and varies in intensity. The pain also radiates down into his right lateral chest. He notes associated shortness of breath with the pain, and states his SOB resolves when the pain resolves. The patient denies fevers, chills, sweats, chest pain, palpitations, claudication, cough, wheezing, nausea, vomiting, abdominal pain, dysuria, hematuria, urinary retention, paralysis, weakness, numbness and tingling. Additional Comments: See HPI for pertinent positives and negatives. All other systems reviewed and negative. (Ilana Molina, MALLORIE-C) Objective Vital Signs Date Time Temp Pulse Resp B/P (MAP) Pulse Ox O2 Delivery O2 Flow Rate FiO2 10/20/17 15:28 36.3 105 18 101/66 (78) 93 Room Air 10/20/17 11:18 36.5 101 18 128/80 (96) 93 Room Air 10/20/17 08:00 92 Room Air 10/20/17 07:12 36.5 109 18 128/86 (100) 92 Room Air 10/20/17 04:15 36.8 101 20 125/82 (96) 92 Nasal Cannula 2.0 10/20/17 00:00 Nasal Cannula 2.0 10/19/17 20:00 Nasal Cannula 2.0 10/19/17 19:35 36.5 104 20 114/76 (89) 96 Nasal Cannula 2.0 10/19/17 16:00 96 Room Air 2.0 (Ilana Molina PA-C) Physical Exam Notes: General appearance: Well-developed, well-nourished, no apparent distress Head: Normocephalic, atraumatic Eyes: Normal inspection, PERRL, EOMI ENT: Normal ENT inspection, hearing grossly normal, pharynx normal Neck: Supple, no JVD, trachea midline Respiratory/Chest: +Decreased breath sounds, respiratory effort limited secondary to pain. Lungs clear to auscultation, no respiratory distress Cardiovascular: Regular rate & rhythm, no gallop, no murmur Abdomen/GI: Normal bowel sounds, non-tender, soft Extremities/Musculoskeletal: Normal inspection, no calf tenderness, no pedal edema Neurological/Psych: Alert, normal mood/affect, oriented x 3 Skin: Normal color, warm/dry, no rash (Ilana Molina ., PA-C) Laboratory Results Last 24 Hours Test 10/20/17 09:49 White Blood Count 4.92 K/uL Red Blood Count 3.36 M/uL Hemoglobin 10.6 g/dL Hematocrit 30.3 % Mean Corpuscular Volume 90.2 fL Mean Corpuscular Hemoglobin 31.5 pg Mean Corpuscular Hemoglobin Concent 35.0 g/dl RDW Standard Deviation 58.5 fL RDW Coefficient of Variation 17.8 % Platelet Count 154 K/uL Mean Platelet Volume 8.4 fL Sodium Level 130 mmol/L Potassium Level 4.0 mmol/L Chloride Level 99 mmol/L Carbon Dioxide Level 26 mmol/L Anion Gap 5.0 mmol/L Blood Urea Nitrogen 10 mg/dl Creatinine 1.27 mg/dl Est Creatinine Clear Calc Drug Dose 62.7 ml/min Estimated GFR () 71.2 Estimated GFR (Non- 61.4 BUN/Creatinine Ratio 8.0 Random Glucose 100 mg/dl Calcium Level 9.6 mg/dl (Ilana Molina ., PA-C) Diagnostic Results Reviewed the following studies and agree with interpretation as follows: VENOUS DOPPLER LWR EXT BILA HISTORY: Pain. Edema. DVT COMPARISON STUDY: None. FINDINGS: There is normal compressibility, flow, and augmentation within the bilateral lower extremity deep venous systems. IMPRESSION: No DVT within the right or left lower extremity. (CHEST) THORAX WITHOUT CT DOSE: 404.99 mGy.cm HISTORY: Hypoxemia possible atelectasis TECHNIQUE: Multiaxial CT images of the chest were performed without contrast. A dose lowering technique was utilized adhering to the principles of ALARA. COMPARISON: Chest 10/18/2017. Chest CTA 10/16/2017. FINDINGS: No pneumothorax. Advanced emphysema is again noted. Trace mucoid material within the trachea. No pleural effusions. Focal airspace consolidation within the base of the lower lobes posteriorly. This favors atelectasis. There is also linear density within the superior segment of the left lower lobe scarlike density within the right upper lobe. These remain unchanged. No new focal lung consolidations. The visualized liver and spleen are unremarkable. No significant change in the gastrohepatic lymphadenopathy. No significant change in the lower cervical, mediastinal, and majority of the paravertebral lymphadenopathy. Multiple lytic lesions are again noted throughout the visualized osseous structures consistent with metastatic disease. Posterior fusion from T6 through T8 with pedicle screws and rods. The hardware appears intact. Progressive destruction of the majority of the T3 vertebral body with slight progression of the moderate pathologic compression fracture. Paravertebral soft tissue abnormality at this T3 vertebral body has progressed. This currently measures a maximal thickness of 1.8 cm, previously demonstrating a maximal thickness of 1.4 cm. There appears be slight increase in size in the soft tissue mass centered at the left T7 pedicle. This appears to extend into the central canal/epidural space and likely results in mass effect along the central canal. However, this is suboptimally evaluated due to the metallic artifact at this level. Anterior pericardial lymph nodes/masses remain unchanged. IMPRESSION: 1. Progressive destruction of the majority of the T3 vertebral body with slight progression of the moderate pathologic compression fracture at this level. This is a result of the progressive paravertebral soft tissue mass at this location. 2. Slight progression of the mass centered at the left T7 pedicle. This likely extends into the central canal/epidural space at this location. However, this is suboptimally evaluated due to the metallic artifact at this level. 3. The lower cervical, mediastinal, and gastrohepatic adenopathy is similar to the prior study. 4. Slight progression of the bibasilar densities suggesting atelectasis/scarring. 5. Multiple lytic lesions seen throughout the visualized osseous structures consistent with metastatic disease. (Ilana Molina ., PA-C) Assessment and Plan 57 y/o male with a history of CAD, HLD, multiple myeloma, and anxiety who was admitted on 10/16 for intractable pain related to lytic lesions. Intractable pain due to lytic lesions related to multiple myeloma--stable -Admit to med/surg -Heme/onc consulted, appreciate recs: Recommend palliative radiation. 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 Increase fentanyl 50 mcg. Continue oxycodone -Radiation oncology consulted, appreciate recs: CT simulation for treatment planning, start treatment as soon as possible. -Fentanyl patch as above, prn Dilaudid, Lidoderm, oxycodone 10 mg PO q4h prn pain -Pulmonology following: noncontrast chest CT, Dopplers of legs to assess for DVT. Bronch not warranted at this time. Chest pain concerning for PE--resolved -CTA chest 10/16 negative for PE -ABG grossly unremarkable -Noncontrast chest CT with slight progression of bibasilar densities suggesting atelectasis/scarring -Venous dopplers negative for DVT bilaterally -Echo shows EF 40-45%. Akinesis of basal septum, basal inferior wall, base to mid inferolateral wall. Hypokinesis of lateral base. Mild LVH. Stable from previous DEVONTE--resolved -Creatinine remains stable CAD, HLD -Continue ASA, pravastatin 80 mg PO hs Anxiety -Continue Vistaril 50 mg PO hs DVT prophylaxis -Heparin 5000 units SC q12h Code Status -Level I, FULL RESUSCITATION STATUS (Ilana Molina ., PA-C) I personally interviewed and examined the patient. I agree with history of present illness and physical exam mentioned above, I also performed my own history taking and examination. Past medical history and review of system has been obtained by myself I reviewed all pertinent labs and studies Reviewed current medications I discussed and formulated of the assessment and plan mentioned above. Please refer to the Summary mentioned below. 57-year-old man with history of multiple myeloma, and anxiety, CAD and dyslipidemia presented to the hospital with intractable pain in his neck and shoulder secondary to mass-effect on spinal vertebrae and nerves. Currently seen by pain management, was taking off his Dilaudid PCI pump, started on fentanyl patch, pain appears to be better controlled radiation oncologist was consulted, will start therapy tomorrow General Appearance: not in acute distress Eyes: normal Sclerae, extraocular muscle intact ENT: hearing grossly normal Neck: supple Respiratory/Chest: normal air entry bilateral ,no respiratory distress, no accessory muscle use Cardiovascular: regular rate, rhythm, no murmur Abdomen: non tender, soft, no masses Extremities: Bilateral shoulders and neck pain with decreased range of motion Neurologic/Psychiatric: Awake alert oriented times place and person moves all extremities sensation intact cranial nerves II-12 appear to be intact Skin: normal color, warm/dry, no rash Kamar Calderon MD, [facility] (Kamar Leon MD)
[2017-10-20] MEDS: FENTANYL 50 MCG/HR TDSY TD SCH (16:07)
[2017-10-20] MEDS: FENTANYL PATCH REMOVE & WASTE SCH (16:08)
[2017-10-20] MEDS: HYDROmorphone INJ 1 MG/ML SYR IV PRN ×2 (18:15→22:21)
[2017-10-20] MEDS: hydrOXYzine HCL 25 MG TAB PO SCH (20:49)
[2017-10-20] MEDS: PRAVASTATIN SOD 40 MG TAB PO SCH (20:50)
[2017-10-21] VITALS (7 sets, daily range): BP systolic 99–154; BP diastolic 67–99; PULSE 92–113; TEMP 36.4–36.9; O2SAT 91–95; BMI 26.6
[2017-10-21] MEDS: HYDROmorphone INJ 1 MG/ML SYR IV PRN ×4 (03:49→20:19)
[2017-10-21] MEDS: POTASSIUM CHLORIDE INJ 40 MEQ in SODIUM CHLORIDE 0.9% 1000ML 1,000 ML IV SCH ×2 (05:46→15:27)
[2017-10-21 06:31] LABS: HEMATOCRIT 30.8 % (42-52); HEMOGLOBIN 10.8 g/dL (14.0-18.0); MEAN CELL VOLUME 91.4 fL (80-100); MEAN CORPUSCULAR HGB CONC 35.1 g/dl (32-36); MEAN PLATELET VOLUME 8.7 fL (7.4-10.4); PLATELET COUNT 158 K/uL (130-400); RED CELL DISTRIBUTION WIDTH SD 60.8 fL (36.4-46.3); WHITE BLOOD COUNT 5.29 K/uL (4.8-10.8)
[2017-10-21 07:07] LABS: CALCIUM 9.6 mg/dl (8.5-10.1); CREATININE 1.26 mg/dl (0.60-1.40)
[2017-10-21] MEDS: LIDODERM (LIDOCAINE) PATCH 5% TD SCH (07:51)
[2017-10-21] MEDS: DOCUSATE SODIUM 100 MG CAP PO SCH ×2 (07:52→20:21)
[2017-10-21] MEDS: ASPIRIN 81 MG ECTAB PO SCH (07:52)
[2017-10-21] MEDS: OMEGA-3 (PURIFIED FISH OIL) 1 GM CAP PO SCH (07:52)
[2017-10-21] MEDS: DULOXETINE (CYMBALTA) 30 MG CAP PO SCH (07:52)
[2017-10-21] MEDS: CHECK FENTANYL PATCH PLACEMENT SCH ×3 (07:54→23:23)
[2017-10-21] MEDS: CHOLECALCIFEROL 1000 INTER.UNIT TAB PO SCH (08:42)
[2017-10-21] MEDS: DOCUSATE SODIUM/SENNA 50/8.6MG TAB PO SCH ×2 (08:42→20:23)
[2017-10-21] MEDS: OXYCODONE HCL IR 5 MG TAB (IMMEDIATE RELEASE) PO PRN ×3 (08:48→23:23)
[2017-10-21] MEDS: HEPARIN SOD 5000 UNIT/0.5 ML CARP SQ SCH ×2 (08:52→20:48)
--- NOTE | 2017-10-21 10:19 | Pain Management Progress Note ---
Pain Management Progress Note Date of Service Oct 21, 2017. Subjective Mr. Anders was seen this morning on rounds. Currently, he reports minimal pain when lying in immobile position. However, with any minimal movement especially of his scapula, he experiences pain that he rates as 6/10. He does note improvement from increasing the dose of the transdermal fentanyl patch and still using IV hydromorphone for breakthrough pain. He is scheduled to undergo radiation therapy treatment today to assist in decreasing his pain. He denies any side effects including cognitive dysfunction, lethargy, constipation or any other side effects related to the opioid regimen. Objective Vital Signs: Last Vital Signs Documentation Date Time Temp Pulse Resp B/P (MAP) Pulse Ox O2 Delivery O2 Flow Rate FiO2 10/21/17 08:00 94 Room Air 10/21/17 07:16 36.9 113 16 154/99 (117) 10/20/17 04:15 2.0 Physical Exam: Mr. Anders is lying in immobile, supine position. He is awake, alert, and oriented. He appears comfortable in this position and requests not to be further examined as an movement causes him to have pain. Laboratory Laboratory Findings 10/21/17 06:03 Assessment 1. Multiple myeloma with disease to the axial skeleton. Recommendations 1. Maintain current opioid analgesic regimen. 2. Recommend addition of Decadron to reduce periosteal edema as a result of the malignancy and hence reduce nociception. Recommend IV Decadron for 48 hours followed by oral Decadron. 3. Recommend addition of low back dose gabapentin for anti-neuropathic effect from the metastatic disease. 4. Orders written.
--- NOTE | 2017-10-21 11:22 | Hematology/Oncology Prog Note ---
Hematology/Onc Progress Note Date of Service Oct 21, 2017. Diagnoses Multiple myeloma Refractory pain secondary to multiple myeloma Medications Medications Administered Medications (Trade) Dose Ordered Sig/Malik Route Start Time Stop Time Status Last Admin Dose Admin Morphine Sulfate (MoRPHine SULFATE INJ) 8 mg NOW STAT IV 10/16/17 12:07 10/16/17 12:10 DC 10/16/17 12:32 8 MG Sodium Chloride 1,000 ml @ 999 mls/hr Q1H1M STAT IV 10/16/17 12:07 10/16/17 13:07 DC 10/16/17 12:32 999 MLS/HR Heparin Sodium (Porcine) (Heparin Sq 5000 Unit/0.5ml) 5,000 unit Q12H SQ 10/16/17 21:00 11/15/17 20:59 10/21/17 08:52 5,000 UNIT Morphine Sulfate (MoRPHine SULFATE INJ) 1 mg Q2H PRN IV 10/16/17 17:30 10/17/17 09:06 DC 10/17/17 07:58 1 MG Hydromorphone HCl (Dilaudid Inj) 0.5 mg Q2H PRN IV 10/16/17 17:30 10/17/17 08:55 DC 10/17/17 05:29 0.5 MG Aspirin (Ecotrin Tab) 81 mg DAILY PO 10/17/17 08:00 11/16/17 08:59 10/21/17 07:52 81 MG Cholecalciferol (Vitamin D Tab) 1,000 inter.unit DAILY PO 10/17/17 08:00 11/16/17 08:59 10/21/17 08:42 1,000 INTER.UNIT Senna/Docusate Sodium (Senokot S Tab) 1 tab BID PO 10/16/17 20:00 11/15/17 20:59 10/21/17 08:42 1 TAB Hydroxyzine HCl (Vistaril Tab) 50 mg HS PO 10/16/17 21:00 11/15/17 20:59 10/20/17 20:49 50 MG Fish Oil ([place]-3 (Purified Fish Oil) Cap) 1 gm QAM PO 10/17/17 08:00 11/16/17 08:59 10/21/17 07:52 1 GM Oxycodone HCl (Roxicodone Immediate Rel Tab) 10 mg Q4H PRN PO 10/16/17 17:30 11/15/17 17:29 10/21/17 08:48 10 MG Pravastatin Sodium (Pravachol Tab) 80 mg HS PO 10/16/17 21:00 11/15/17 20:59 10/20/17 20:50 80 MG Potassium Chloride 40 meq/ Sodium Chloride 1,020 ml @ 100 mls/hr [id number] IV 10/17/17 00:30 11/16/17 00:29 10/21/17 05:46 100 MLS/HR Hydromorphone HCl (Dilaudid Inj) 1 mg Q2H PRN IV 10/17/17 09:00 10/17/17 10:30 DC 10/17/17 09:09 1 MG Fentanyl (Duragesic Patch) 25 mcg Q72H TD 10/17/17 09:15 10/20/17 15:14 DC 10/20/17 09:48 25 MCG Miscellaneous (Fentanyl Patch Remove & Waste) 1 ea Q3D N/A 10/20/17 09:15 10/20/17 15:14 DC 10/20/17 09:51 1 EA Miscellaneous Information (Check Fentanyl Patch Placement) 1 ea QS N/A 10/17/17 16:00 10/20/17 15:14 DC 10/20/17 09:46 1 EA Hydromorphone HCl (Dilaudid Hr Director) 25 mg PRN PRN IV 10/17/17 09:15 10/20/17 15:14 DC 10/19/17 08:36 25 MG Docusate Sodium (coLACE CAP) 100 mg BID PO 10/17/17 20:00 10/20/17 15:14 DC 10/20/17 08:22 100 MG Duloxetine HCl (Cymbalta Cap) 30 mg QAM PO 10/18/17 08:00 11/17/17 07:59 10/21/17 07:52 30 MG Duloxetine HCl (Cymbalta Cap) 30 mg NOW STAT PO 10/17/17 10:27 10/17/17 10:29 DC 10/17/17 11:11 30 MG Lidocaine (Lidoderm Patch 5%) 1 patch QAM TD 10/17/17 09:15 11/16/17 09:14 10/21/17 07:51 1 PATCH Miscellaneous (Remove Lidoderm Patch) 1 ea DAILY@21 N/A 10/17/17 21:00 11/16/17 20:59 10/20/17 20:50 1 EA Docusate Sodium (coLACE CAP) 100 mg BID PO 10/20/17 20:00 11/19/17 19:59 10/21/17 07:52 100 MG Hydromorphone HCl (Dilaudid Inj) 1 mg Q3HWA PRN IV 10/20/17 15:15 11/03/17 15:14 10/21/17 07:51 1 MG Fentanyl (Duragesic Patch) 50 mcg Q3D@1600 TD 10/20/17 16:00 11/03/17 15:59 10/20/17 16:07 50 MCG Miscellaneous (Fentanyl Patch Remove & Waste) 1 ea Q3D N/A 10/20/17 16:00 11/19/17 15:59 10/20/17 16:08 1 EA Miscellaneous Information (Check Fentanyl Patch Placement) 1 ea QS N/A 10/21/17 00:00 11/20/17 00:00 10/21/17 07:54 1 EA Subjective He is quite uncomfortable. I understand radiation therapy to the particularly painful areas will begin. Review of Systems: Constitutional: Negative for night sweats, or fever Eyes: Negative for event change of vision ENT: Negative for epistaxis, nasal discharge, sore throat, or deafness Cardiovascular: Negative for chest pain, palpitations, dizziness, diaphoresis Respiratory: Negative for new shortness of breath,hemoptysis, or purulent cough Gastrointestinal: Negative for diarrhea, hematemesis, melena, nausea, vomiting , or dyspepsia Integumentary (skin): Negative for rash or jaundice discoloration Genitourinary: Negative for urinary frequency, hematuria, or dysuria Neurological: Negative for weakness, seizure activity, headache, or dizziness Lymphatic/Hematologic: Negative for petechiae, bleeding or new adenopathy Musculoskeletal: Appears considerably uncomfortable with pain particularly in the right shoulder area Allergic/Immunologic: Negative for unusual rash or pruritis. Vital Signs Vital Signs Past 12 Hours Date Time Temp Pulse Resp B/P (MAP) Pulse Ox O2 Delivery O2 Flow Rate FiO2 10/21/17 11:13 36.4 105 18 125/81 (96) 95 10/21/17 08:00 94 Room Air 10/21/17 07:16 36.9 113 16 154/99 (117) 94 Room Air 10/21/17 04:06 36.8 92 18 130/82 (98) 91 Room Air 10/21/17 00:00 Room Air 10/20/17 23:45 36.6 96 18 139/91 (107) 91 Room Air Physical Exam Constitutional: vitals are stable. Eyes: Eyes are MERNA EOMI without conjuctival erythema or icterus. ENT: External examination was negative for masses. Neck: Negative for masses or palpable thyromegaly Respiratory: Lung sounds were generally clear bilaterally Cardiovascular: Heart was RRR without significant murmur, gallops aoe rubs Gastrointestinal: No palpable hepatic or splenomegaly. The abdomen was soft with normal bowel sounds. Lymphatic system: there was no palpable peripheral lymphadenopathy Musculoskeletal System: The musculoskeletal system seemed concordant with age. Skin: The skin was negative for jaundice. Neurologic exam: The exam was negative for any focal findings. Deep tendon reflexes were equal and symmetrical. Psychiatric exam: Was essentially negative with normal mood and effect. Extremities: Negative for edema Constitutional: General Apperance: heathly-appearing Level of Distress: NAD Psychiatric: Mental Status: active & alert Orientation: oriented except where noted Lungs: Auscuitation: breath sounds normal Cardiovascular: Heart Auscultation: tachycardia Abdomen: Inspection & Palpation: soft, no tenderness, guarding & rebound Extremities: no edema Laboratory Last 24 Hours Test 10/21/17 06:03 White Blood Count 5.29 K/uL Red Blood Count 3.37 M/uL Hemoglobin 10.8 g/dL Hematocrit 30.8 % Mean Corpuscular Volume 91.4 fL Mean Corpuscular Hemoglobin 32.0 pg Mean Corpuscular Hemoglobin Concent 35.1 g/dl RDW Standard Deviation 60.8 fL RDW Coefficient of Variation 18.0 % Platelet Count 158 K/uL Mean Platelet Volume 8.7 fL Sodium Level 130 mmol/L Potassium Level 4.0 mmol/L Chloride Level 99 mmol/L Carbon Dioxide Level 26 mmol/L Anion Gap 6.0 mmol/L Blood Urea Nitrogen 10 mg/dl Creatinine 1.26 mg/dl Est Creatinine Clear Calc Drug Dose 63.2 ml/min Estimated GFR () 71.9 Estimated GFR (Non- 62.0 BUN/Creatinine Ratio 8.2 Random Glucose 95 mg/dl Calcium Level 9.6 mg/dl Assessment & Plan Multiple myeloma IgG kappa with significant amount of bone pain. Radiation has visited with the patient radiation to palliate those painful areas is about to begin. I had like to begin some form of treatment for his myeloma. Decadron 40 mg a day for 4 days will be prescribed and this was reviewed with the patient today. This will be a bridging maneuver. Once radiation therapy is completed then we will be able to carry on then with the original plan of Revlimid Velcade and Decadron.
[2017-10-21] MEDS: GABAPENTIN 100 MG CAP PO SCH ×2 (12:54→20:23)
--- NOTE | 2017-10-21 13:53 | Hospitalist Progress Note ---
Hospitalist Progress Note Date of Service Oct 21, 2017. (Ilana Molina ., KARTIKC) Subjective Pt evaluation today including: conversation w/ patient, physical exam, chart review, lab review, conversation w/ business information consultant (spoke with Dr. Agee and Dr. Guzman), review of inpatient medication list Patient reports feeling about the same. He states that at times, he is able to find a comfortable position where there is no pain, but mostly he is at a 5 or 6 out of 10 pain when laying in bed. Once he gets up to go to the bathroom, however, his pain will shoot up to a 10/10 sharp pain in the right shoulder and right lateral chest. He still notes accompanied shortness of breath with this pain but no SOB when the pain is better. He reports feeling very fatigued. The patient denies fevers, chills, sweats, palpitations, claudication, cough, wheezing, nausea, vomiting, abdominal pain, dysuria, hematuria, urinary retention, paralysis, weakness, numbness and tingling. Additional Comments: See HPI for pertinent positives and negatives. All other systems reviewed and negative. (Ilana Molina ., PA-C) Objective Vital Signs Date Time Temp Pulse Resp B/P (MAP) Pulse Ox O2 Delivery O2 Flow Rate FiO2 10/21/17 11:13 36.4 105 18 125/81 (96) 95 10/21/17 08:00 94 Room Air 10/21/17 07:16 36.9 113 16 154/99 (117) 94 Room Air 10/21/17 04:06 36.8 92 18 130/82 (98) 91 Room Air 10/21/17 00:00 Room Air 10/20/17 23:45 36.6 96 18 139/91 (107) 91 Room Air 10/20/17 20:00 Room Air 10/20/17 19:53 36.6 98 18 105/57 (73) 92 Room Air 10/20/17 16:00 93 Room Air 10/20/17 15:28 36.3 105 18 101/66 (78) 93 Room Air (Ilana Molina ., KARTIKC) Physical Exam Notes: General appearance: Well-developed, well-nourished, no apparent distress Head: Normocephalic, atraumatic Eyes: Normal inspection, PERRL, EOMI ENT: Normal ENT inspection, hearing grossly normal, pharynx normal Neck: Supple, no JVD, trachea midline Respiratory/Chest: +Decreased breath sounds, respiratory effort limited secondary to pain. Lungs clear to auscultation, no respiratory distress Cardiovascular: Regular rate & rhythm, no gallop, no murmur Abdomen/GI: Normal bowel sounds, non-tender, soft Extremities/Musculoskeletal: Normal inspection, no calf tenderness, no pedal edema Neurological/Psych: +More lethargic today. Normal mood/affect, oriented x 3 Skin: Normal color, warm/dry, no rash (Ilana Molina ., PA-C) Laboratory Results Last 24 Hours Test 10/21/17 06:03 10/21/17 11:44 White Blood Count 5.29 K/uL Red Blood Count 3.37 M/uL Hemoglobin 10.8 g/dL Hematocrit 30.8 % Mean Corpuscular Volume 91.4 fL Mean Corpuscular Hemoglobin 32.0 pg Mean Corpuscular Hemoglobin Concent 35.1 g/dl RDW Standard Deviation 60.8 fL RDW Coefficient of Variation 18.0 % Platelet Count 158 K/uL Mean Platelet Volume 8.7 fL Sodium Level 130 mmol/L Potassium Level 4.0 mmol/L Chloride Level 99 mmol/L Carbon Dioxide Level 26 mmol/L Anion Gap 6.0 mmol/L Blood Urea Nitrogen 10 mg/dl Creatinine 1.26 mg/dl Est Creatinine Clear Calc Drug Dose 63.2 ml/min Estimated GFR () 71.9 Estimated GFR (Non- 62.0 BUN/Creatinine Ratio 8.2 Random Glucose 95 mg/dl Calcium Level 9.6 mg/dl Lactate Dehydrogenase 178 U/L (Ilana Molina ., PA-C) Assessment and Plan 57 y/o male with a history of CAD, HLD, multiple myeloma, and anxiety who was admitted on 10/16 for intractable pain related to lytic lesions. Intractable pain due to lytic lesions related to multiple myeloma--stable -Admit to med/surg -Heme/onc consulted, appreciate recs: Spoke with Dr. Guzman. Will initiate Decadron 40 mg PO qd x 4 days. After radiation is completed, can then proceed with chemotherapy and Decadron. -Pain management consulted, appreciate recs: Spoke with Dr. Agee. Recommended Decadron 8 mg IV BID; however, after I spoke with Dr. Guzman, this will be d/c'd in favor of the higher oral dose. Will also start gabapentin 100 mg PO TID. -Radiation oncology consulted, appreciate recs: Scheduled to start radiation tomorrow. -Fentanyl patch 50 mcg, Dilaudid 1 mg IV q3h prn, Lidoderm, oxycodone 10 mg PO q4h prn pain, gabapentin 100 mg PO TID, Decadron 40 mg PO qd -Pulmonology following: noncontrast chest CT, Dopplers of legs to assess for DVT. Bronch not warranted at this time. Chest pain concerning for PE--resolved, now only pain on right side radiating from shoulder -CTA chest 10/16 negative for PE -ABG grossly unremarkable -Noncontrast chest CT with slight progression of bibasilar densities suggesting atelectasis/scarring -Venous dopplers negative for DVT bilaterally -Echo shows EF 40-45%. Akinesis of basal septum, basal inferior wall, base to mid inferolateral wall. Hypokinesis of lateral base. Mild LVH. Stable from previous DEVONTE--resolved -Creatinine remains stable CAD, HLD -Continue ASA, pravastatin 80 mg PO hs Anxiety -Continue Vistaril 50 mg PO hs DVT prophylaxis -Heparin 5000 units SC q12h Code Status -Level I, FULL RESUSCITATION STATUS (Ilana Molina ., MALLORIE-C) I personally interviewed and examined the patient. I agree with history of present illness and physical exam mentioned above, I also performed my own history taking and examination. Past medical history and review of system has been obtained by myself I reviewed all pertinent labs and studies Reviewed current medications I discussed and formulated of the assessment and plan mentioned above. Please refer to the Summary mentioned below. 57-year-old man with history of multiple myeloma, and anxiety, CAD and dyslipidemia presented to the hospital with intractable pain in his neck and shoulder secondary to mass-effect on spinal vertebrae and nerves. Currently seen by pain management, was taking off his Dilaudid PCI pump, started on fentanyl patch, pain appears to be better controlled radiation oncologist was consulted, will start therapy tomorrow In conjunction with radiotherapy, started on Decadron 40 mg p.o. daily We will start him on sliding scale insulin especially for the next few days while he is on this large dose of Decadron General Appearance: not in acute distress Eyes: normal Sclerae, extraocular muscle intact ENT: hearing grossly normal Neck: supple Respiratory/Chest: normal air entry bilateral ,no respiratory distress, no accessory muscle use Cardiovascular: regular rate, rhythm, no murmur Abdomen: non tender, soft, no masses Extremities: Bilateral shoulders and neck pain with decreased range of motion Neurologic/Psychiatric: Awake alert oriented times place and person moves all extremities sensation intact cranial nerves II-12 appear to be intact Skin: normal color, warm/dry, no rash Kamar Calderon MD, [facility] hospitalist group (Kamar Leon MD)
[2017-10-21] MEDS ORDERED: GLUCOSE 40% GEL 15 GM TUBE PO PRN (17:45)
[2017-10-21] MEDS ORDERED: GLUCOSE 10 TABS/TUBE PO PRN (17:45)
[2017-10-21] MEDS ORDERED: GLUCAGON FOR INJ 1 MG VIAL SQ PRN (17:45)
[2017-10-21] MEDS ORDERED: DEXTROSE 50% 50 ML SYR IV PRN (17:45)
[2017-10-21] MEDS ORDERED: DEXAMETHASONE INJ 8 MG in SYRINGE 0 ML IV SCH (20:00)
[2017-10-21] MEDS: INSULIN ASPART 100 UNITS/ML 3 ML PEN SC SCH (20:17)
[2017-10-21] MEDS: hydrOXYzine HCL 25 MG TAB PO SCH (20:22)
[2017-10-21] MEDS: PRAVASTATIN SOD 40 MG TAB PO SCH (20:22)
[2017-10-22] VITALS (8 sets, daily range): BP systolic 108–178; BP diastolic 73–130; PULSE 96–135; TEMP 36.4–36.9; O2SAT 90–97
[2017-10-22] MEDS: POTASSIUM CHLORIDE INJ 40 MEQ in SODIUM CHLORIDE 0.9% 1000ML 1,000 ML IV SCH ×3 (02:11→21:57)
[2017-10-22 06:03] LABS: HEMATOCRIT 30.2 % (42-52); HEMOGLOBIN 10.3 g/dL (14.0-18.0); MEAN CELL VOLUME 91.2 fL (80-100); MEAN CORPUSCULAR HEMOGLOBIN 31.1 pg (25-34); MEAN CORPUSCULAR HGB CONC 34.1 g/dl (32-36); MEAN PLATELET VOLUME 8.7 fL (7.4-10.4); NUCLEATED RED BLOOD CELL ABS 0.03 K/uL (0-0); PLATELET COUNT 161 K/uL (130-400); RED CELL DISTRIBUTION WIDTH CV 18.2 % (11.5-14.5); RED CELL DISTRIBUTION WIDTH SD 61.1 fL (36.4-46.3); WHITE BLOOD COUNT 5.27 K/uL (4.8-10.8)
[2017-10-22 06:39] LABS: CALCIUM 9.4 mg/dl (8.5-10.1); CREATININE 1.31 mg/dl (0.60-1.40); POTASSIUM 4.2 mmol/L (3.5-5.1)
[2017-10-22] MEDS: CHOLECALCIFEROL 1000 INTER.UNIT TAB PO SCH (08:01)
[2017-10-22] MEDS: DOCUSATE SODIUM 100 MG CAP PO SCH ×2 (08:01→20:16)
[2017-10-22] MEDS: DOCUSATE SODIUM/SENNA 50/8.6MG TAB PO SCH ×2 (08:01→20:15)
[2017-10-22] MEDS: DULOXETINE (CYMBALTA) 30 MG CAP PO SCH (08:01)
[2017-10-22] MEDS: GABAPENTIN 100 MG CAP PO SCH ×3 (08:02→20:14)
[2017-10-22] MEDS: DEXAMETHASONE 4 MG TAB PO SCH (08:02)
[2017-10-22] MEDS: LIDODERM (LIDOCAINE) PATCH 5% TD SCH (08:03)
[2017-10-22] MEDS: ASPIRIN 81 MG ECTAB PO SCH (08:03)
[2017-10-22] MEDS: OMEGA-3 (PURIFIED FISH OIL) 1 GM CAP PO SCH (08:03)
[2017-10-22] MEDS: CHECK FENTANYL PATCH PLACEMENT SCH ×2 (08:05→16:00)
[2017-10-22] MEDS: INSULIN ASPART 100 UNITS/ML 3 ML PEN SC SCH ×4 (08:13→20:24)
[2017-10-22] MEDS: OXYCODONE HCL IR 5 MG TAB (IMMEDIATE RELEASE) PO PRN ×3 (08:13→16:39)
[2017-10-22] MEDS: HEPARIN SOD 5000 UNIT/0.5 ML CARP SQ SCH ×2 (12:09→20:19)
--- NOTE | 2017-10-22 12:28 | HEME/ONC PROGRESS NOTE ---
DATE: 10/22/2017 DIAGNOSES: 1. Multiple myeloma. 2. Refractory thoracic pain, attributable to multiple myeloma. SUBJECTIVE: Mj is a pleasant 57-year-old gentleman well known to [facility] recently diagnosed with multiple myeloma. The patient was admitted a couple of days ago because of intractable thoracic pain. He initially received IV opioids which I believe has since been converted to oral preparations. His pain seems to be much improved and clearly I think he is close to discharge. Appreciate radiation oncology's input plan of 3000 cGy over 5-10 fractions of radiation which I believe will begin today. Dr. Guzman saw Mr. Anders yesterday on my behalf and started pulse dexamethasone. He is scheduled to begin Revlimid and bortezomib, once discharged from hospital. PHYSICAL EXAMINATION: GENERAL: A 57-year-old gentleman lying supine in bed, awake, alert and appropriate, in no acute distress. VITAL SIGNS: Temperature 36.9, pulse 100, respiratory rate 18, blood pressure 109/73. SKIN: Without rash or lesion. HEENT: Oral mucosa without erythema or ulceration. HEART: Regular rate and rhythm. LUNGS: Clear to auscultation bilaterally. ABDOMEN: Soft, nontender, nondistended. EXTREMITIES: No clubbing, cyanosis or edema. NEUROLOGIC: Grossly intact. LABORATORY DATA: WBC count 50-70, hemoglobin 10.3, and platelet count 161,000. Sodium 131, potassium 4.2, chloride 101, carbon dioxide 24, creatinine 1.31, and BUN 12. IMPRESSION: 1. Intractable thoracic pain attributable to disease progression. 2. Multiple myeloma. PLAN: Mr. Anders was admitted a couple days ago with intractable pain, initially placed on IV opioids and is currently being converted to p.o. preparations. He seemed to be very comfortable at bedside today. I understand radiation will begin today but see no reason why he continues to be in hospital if all systems are otherwise good for him to be discharged home. My plan is to start him on combination of Revlimid, pertuzumab and dexamethasone. Dr. Guzman started pulse dexamethasone yesterday which should be helpful in combating his disease and abating he his pain. Peripheral blood counts are adequate at this time and should not require transfusional support. I anticipate his discharge in next day or two and will make arrangements for outpatient followup. Again, I thank the hospitalist team for assisting me in managing this very pleasant gentleman's pain. [facility] CENTERMarino
--- NOTE | 2017-10-22 12:46 | Pain Management Progress Note ---
Pain Management Progress Note Date of Service Oct 22, 2017. Subjective Mr. Anders states that his pain is well controlled with the current regimen. The pain was the worst along the right shoulder and chest. He is currently on Fentanyl patch 50mcg/hr, Oxycodone 10mg, Gabapentin 100mg TID, Cymbalta, and Decadron. Patient states that he does not request any changes to the medication regimen. He does report mild fatigue. Patient is going to be starting radiation today. Patient denies any complaints or change to the pain. Case discussed with Dr. Agee Objective Vital Signs: Last Vital Signs Documentation Date Time Temp Pulse Resp B/P (MAP) Pulse Ox O2 Delivery O2 Flow Rate FiO2 10/22/17 12:05 36.5 103 16 138/88 (105) 97 Room Air 10/22/17 08:30 2.0 Physical Exam: GENERAL: This is a 57 y/o WM that appears his stated age. Speech and cognition is intact. Mood and affect is appropriate. Sitting in the hospital chair, in no acute distress. Appears mildly uncomfortable with positional changes. NEURO: Cranial nerves are grossly intact; no focal deficits noted; AAO x 3. Laboratory Laboratory Findings 10/22/17 05:38 Assessment 1. Multiple myeloma with bony metastasis Recommendations 1. Continue currently regimen. Pain is adequately controlled with fentanyl, oxycodone, gabapentin, Cymbalta, Decadron. 2. Will sign off on the patient as he reports adequate analgesia. Thank you for the consult.
[2017-10-22] MEDS: HYDROmorphone INJ 1 MG/ML SYR IV PRN ×2 (13:24→20:20)
--- NOTE | 2017-10-22 16:13 | Hospitalist Progress Note ---
Hospitalist Progress Note Date of Service Oct 22, 2017. (Ilana Molina .KARTIKC) Subjective Pt evaluation today including: conversation w/ patient, conversation w/ family (bedside), physical exam, chart review, lab review, review of inpatient medication list Patient complains of 5/10 right shoulder pain currently. He denies any SOB today. Pt awaiting radiation at time of my exam. Patient more alert today. The patient denies fevers, chills, sweats, chest pain, palpitations, claudication, cough, wheezing, shortness of breath, nausea, vomiting, abdominal pain, dysuria, hematuria, urinary retention, paralysis, weakness, numbness and tingling. Additional Comments: See HPI for pertinent positives and negatives. All other systems reviewed and negative. (Ilana Molina PA-C) Objective Vital Signs Date Time Temp Pulse Resp B/P (MAP) Pulse Ox O2 Delivery O2 Flow Rate FiO2 10/22/17 15:31 36.7 114 18 122/74 (90) 90 Room Air 10/22/17 12:05 36.5 103 16 138/88 (105) 97 Room Air 10/22/17 08:30 92 Room Air 2.0 10/22/17 08:03 36.9 100 18 109/73 (85) 92 Room Air 10/22/17 03:35 36.6 96 19 108/73 (85) 91 Room Air 10/22/17 00:00 94 Room Air 10/21/17 23:47 36.5 98 18 111/75 (87) 91 Room Air 10/21/17 19:15 36.8 101 19 99/67 (78) 91 (Ilana Molina PA-C) Physical Exam Notes: General appearance: Well-developed, well-nourished, no apparent distress Head: Normocephalic, atraumatic Eyes: Normal inspection, PERRL, EOMI ENT: Normal ENT inspection, hearing grossly normal, pharynx normal Neck: Supple, no JVD, trachea midline Respiratory/Chest: Lungs clear to auscultation, normal breath sounds, no respiratory distress Cardiovascular: Regular rate & rhythm, no gallop, no murmur Abdomen/GI: Normal bowel sounds, non-tender, soft Extremities/Musculoskeletal: Normal inspection, no calf tenderness, no pedal edema Neurological/Psych: Alert, normal mood/affect, oriented x 3 Skin: Normal color, warm/dry, no rash (Ilana Molina ., KARTIKC) Laboratory Results Last 24 Hours Test 10/21/17 19:59 10/22/17 05:38 10/22/17 08:13 10/22/17 11:56 Bedside Glucose 143 mg/dl 113 mg/dl 145 mg/dl White Blood Count 5.27 K/uL Red Blood Count 3.31 M/uL Hemoglobin 10.3 g/dL Hematocrit 30.2 % Mean Corpuscular Volume 91.2 fL Mean Corpuscular Hemoglobin 31.1 pg Mean Corpuscular Hemoglobin Concent 34.1 g/dl RDW Standard Deviation 61.1 fL RDW Coefficient of Variation 18.2 % Platelet Count 161 K/uL Mean Platelet Volume 8.7 fL Nucleated RBC Absolute Count (auto) 0.03 K/uL Nucleated Red Blood Cells % 0.5 % Sodium Level 131 mmol/L Potassium Level 4.2 mmol/L Chloride Level 101 mmol/L Carbon Dioxide Level 24 mmol/L Anion Gap 6.0 mmol/L Blood Urea Nitrogen 12 mg/dl Creatinine 1.31 mg/dl Est Creatinine Clear Calc Drug Dose 60.7 ml/min Estimated GFR () 68.6 Estimated GFR (Non- 59.2 BUN/Creatinine Ratio 8.9 Random Glucose 97 mg/dl Calcium Level 9.4 mg/dl (Ilana Molina ., KARTIKC) Assessment and Plan 57 y/o male with a history of CAD, HLD, multiple myeloma, and anxiety who was admitted on 10/16 for intractable pain related to lytic lesions. Intractable pain due to lytic lesions related to multiple myeloma--stable -Admit to med/surg -Heme/onc consulted, appreciate recs: Continue Decadron 40 mg PO qd x 3 more days. After radiation is completed, can then proceed with chemotherapy. -Pain management consulted, appreciate recs: Pain adequately controlled on current regimen, pain management will sign off. -Radiation oncology consulted, appreciate recs: Radiation to start this afternoon. -Fentanyl patch 50 mcg, Dilaudid 1 mg IV q3h prn, Lidoderm, oxycodone 10 mg PO q4h prn pain, gabapentin 100 mg PO TID, Decadron 40 mg PO qd -Pulmonology following: noncontrast chest CT, Dopplers of legs to assess for DVT. Bronch not warranted at this time. Chest pain concerning for PE--resolved, now only pain on right side radiating from shoulder -CTA chest 10/16 negative for PE -ABG grossly unremarkable -Noncontrast chest CT with slight progression of bibasilar densities suggesting atelectasis/scarring -Venous dopplers negative for DVT bilaterally -Echo shows EF 40-45%. Akinesis of basal septum, basal inferior wall, base to mid inferolateral wall. Hypokinesis of lateral base. Mild LVH. Stable from previous DEVONTE--resolved -Creatinine remains stable CAD, HLD -Continue ASA, pravastatin 80 mg PO hs Anxiety -Continue Vistaril 50 mg PO hs DVT prophylaxis -Heparin 5000 units SC q12h Code Status -Level I, FULL RESUSCITATION STATUS (Ilana Molina ., PA-C) PA Physician Supervision Note: I interviewed and examined the patient. Discussed with Ilana Molina PAC and agree with findings and plan as documented in the note. Any exceptions or clarifications are listed here: None Patient has received his first radiation therapy for his multiple myeloma with multiple bony metastases his left shoulder pain which has been intractable is improving somewhat his is at the bedside and has her questions answered Temperature 36 6 pulse 96 respiration 19 BP 108/73 his cardiac sounds regular lungs are clear he does have pain to movement of his right shoulder Will continue radiation therapy physical therapy evaluation pain management modulation and hopes that the patient will eventually the hospital soon to continue outpatient radiation therapy and chemotherapy for his multiple myeloma Documented By: Trey Campbell (Trey Campbell M.D.)
[2017-10-22] MEDS: hydrOXYzine HCL 25 MG TAB PO SCH (20:15)
[2017-10-22] MEDS: PRAVASTATIN SOD 40 MG TAB PO SCH (20:16)
[2017-10-23] VITALS (7 sets, daily range): BP systolic 122–133; BP diastolic 72–85; PULSE 104–140; TEMP 36.3–36.5; O2SAT 90–95; Ht 177.8 cm; Wt 79.2 kg
[2017-10-23] MEDS: CHECK FENTANYL PATCH PLACEMENT SCH ×3 (02:54→16:29)
[2017-10-23] MEDS: INSULIN ASPART 100 UNITS/ML 3 ML PEN SC SCH ×4 (06:30→21:10)
[2017-10-23 06:44] LABS: HEMATOCRIT 29.2 % (42-52); HEMOGLOBIN 9.9 g/dL (14.0-18.0); MEAN CELL VOLUME 91.8 fL (80-100); MEAN CORPUSCULAR HEMOGLOBIN 31.1 pg (25-34); MEAN CORPUSCULAR HGB CONC 33.9 g/dl (32-36); MEAN PLATELET VOLUME 8.8 fL (7.4-10.4); NUCLEATED RED BLOOD CELL ABS 0.02 K/uL (0-0); PLATELET COUNT 198 K/uL (130-400); RED CELL DISTRIBUTION WIDTH CV 18.2 % (11.5-14.5)
[2017-10-23 07:23] LABS: CALCIUM 8.9 mg/dl (8.5-10.1); CREATININE 1.3 mg/dl (0.60-1.40); POTASSIUM 3.6 mmol/L (3.5-5.1)
[2017-10-23] MEDS: HYDROmorphone INJ 1 MG/ML SYR IV PRN (08:11)
[2017-10-23] MEDS ORDERED: BUPIVACAINE 0.5 % 5 MG/1 ML PF 10ML VIAL ONE (08:12)
[2017-10-23] MEDS ORDERED: TRIAMCINOLONE ACET 40 MG/ML VIAL ONE (08:13)
[2017-10-23] MEDS: OMEGA-3 (PURIFIED FISH OIL) 1 GM CAP PO SCH (08:16)
[2017-10-23] MEDS: LIDODERM (LIDOCAINE) PATCH 5% TD SCH (08:16)
[2017-10-23] MEDS: ASPIRIN 81 MG ECTAB PO SCH (08:16)
[2017-10-23] MEDS: DULOXETINE (CYMBALTA) 30 MG CAP PO SCH (08:17)
[2017-10-23] MEDS: CHOLECALCIFEROL 1000 INTER.UNIT TAB PO SCH (08:17)
[2017-10-23] MEDS: GABAPENTIN 100 MG CAP PO SCH ×3 (08:17→21:05)
[2017-10-23] MEDS: DOCUSATE SODIUM/SENNA 50/8.6MG TAB PO SCH ×2 (08:17→21:05)
[2017-10-23] MEDS: DEXAMETHASONE 4 MG TAB PO SCH (08:18)
[2017-10-23] MEDS: DOCUSATE SODIUM 100 MG CAP PO SCH ×2 (08:18→21:04)
[2017-10-23] MEDS: HEPARIN SOD 5000 UNIT/0.5 ML CARP SQ SCH ×2 (08:22→21:10)
--- NOTE | 2017-10-23 08:23 | HEME/ONC PROGRESS NOTE ---
DATE: 10/23/2017 DIAGNOSES: 1. Intractable thoracic pain attributable to multiple myeloma. 2. Multiple myeloma. SUBJECTIVE: I had the pleasure of seeing Mj at bedside today. He offers no complaints of uncontrolled pain today. He tolerated his diet and moving his bowels at present. He admits he has not been as active as he would like. Mj took a walk with his yesterday around the unit without difficulty. Palliative radiation therapy has begun. Mj has been effectively converted to p.o. opioids and from a medical standpoint, would like to see him discharge so he may begin combination chemotherapy as prescribed. PHYSICAL EXAMINATION: GENERAL: A very pleasant 57-year-old gentleman in no acute distress. VITAL SIGNS: Current temperature 36.4, pulse 104, respirations 18, blood pressure 128/78. SKIN: Without rash or lesion. HEENT: Oral mucosa without erythema or ulceration. NECK: Supple. HEART: Regular rate and rhythm. LUNGS: Clear to auscultation bilaterally. ABDOMEN: Soft, nontender, nondistended. EXTREMITIES: No clubbing, cyanosis or edema. NEUROLOGIC: Grossly intact. LABORATORY DATA: WBC count 10,700, hemoglobin 9.9, platelet count 198,000. Sodium 131, potassium 3.6, chloride 100, carbon dioxide 24, creatinine 1.30, BUN 20. IMPRESSION: 1. Intractable thoracic pain attributable to disease progression. 2. Multiple myeloma. PLAN: Overall, I am very pleased with medical team's management of a Mj's pain. Dr. Guzman started him on pulse dexamethasone and he now receives palliative radiation therapy. Mj states he has no transportation issues with getting back and forth to complete palliative radiation. Unless there is a compelling medical reason to keep him, from an oncologic standpoint, could be discharged home. We will make arrangements to see him in the outpatient clinic as to begin combination Revlimid, bortezomib and dexamethasone. Thank you very much again for assisting me in the care of this very pleasant gentleman.
[2017-10-23] MEDS: POTASSIUM CHLORIDE INJ 40 MEQ in SODIUM CHLORIDE 0.9% 1000ML 1,000 ML IV SCH ×2 (08:24→21:03)
--- NOTE | 2017-10-23 14:30 | Hospitalist Progress Note ---
Hospitalist Progress Note Date of Service Oct 23, 2017. (Ilana Molina .CULLEN) Subjective Pt evaluation today including: conversation w/ patient, physical exam, chart review, lab review, review of inpatient medication list Patient reports feeling better. His pain is much improved following an injection with pain management this morning. He denies any pain at rest and only 3/10 pain with range of motion of his right arm. He states it is much easier to move his right arm as pain is improved. He denies any SOB. The patient denies fevers, chills, sweats, chest pain, palpitations, claudication, cough, wheezing, shortness of breath, nausea, vomiting, abdominal pain, dysuria , hematuria, urinary retention, paralysis, weakness, numbness and tingling. Additional Comments: See HPI for pertinent positives and negatives. All other systems reviewed and negative. (Ilana Molina PA-C) Objective Vital Signs Date Time Temp Pulse Resp B/P (MAP) Pulse Ox O2 Delivery O2 Flow Rate FiO2 10/23/17 11:20 36.4 109 16 122/80 (94) 95 Room Air 10/23/17 08:00 95 Room Air 10/23/17 07:46 36.4 104 18 128/78 (95) 95 Room Air 10/23/17 04:19 36.5 107 20 123/72 (89) 90 Room Air 10/23/17 00:00 Room Air 10/22/17 23:47 36.4 135 19 165/108 (127) 93 Room Air 178/130 (146) 10/22/17 20:00 36.4 123 19 113/75 (88) 92 Room Air 10/22/17 16:00 Room Air 10/22/17 15:31 36.7 114 18 122/74 (90) 90 Room Air (Ilana Molina .KARTIKC) Physical Exam Notes: General appearance: Well-developed, well-nourished, no apparent distress Head: Normocephalic, atraumatic Eyes: Normal inspection, PERRL, EOMI ENT: Normal ENT inspection, hearing grossly normal, pharynx normal Neck: Supple, no JVD, trachea midline Respiratory/Chest: Lungs clear to auscultation, normal breath sounds, no respiratory distress Cardiovascular: Regular rate & rhythm, no gallop, no murmur Abdomen/GI: Normal bowel sounds, non-tender, soft Extremities/Musculoskeletal: +improved ROM RUE. Normal inspection, no calf tenderness, no pedal edema Neurological/Psych: Alert, normal mood/affect, oriented x 3 Skin: Normal color, warm/dry, no rash (Ilana Molina ., PA-C) Laboratory Results Last 24 Hours Test 10/22/17 16:33 10/22/17 20:22 10/23/17 05:58 10/23/17 07:50 Bedside Glucose 230 mg/dl 168 mg/dl 121 mg/dl White Blood Count 10.70 K/uL Red Blood Count 3.18 M/uL Hemoglobin 9.9 g/dL Hematocrit 29.2 % Mean Corpuscular Volume 91.8 fL Mean Corpuscular Hemoglobin 31.1 pg Mean Corpuscular Hemoglobin Concent 33.9 g/dl RDW Standard Deviation 62.0 fL RDW Coefficient of Variation 18.2 % Platelet Count 198 K/uL Mean Platelet Volume 8.8 fL Nucleated RBC Absolute Count (auto) 0.02 K/uL Nucleated Red Blood Cells % 0.2 % Sodium Level 131 mmol/L Potassium Level 3.6 mmol/L Chloride Level 100 mmol/L Carbon Dioxide Level 24 mmol/L Anion Gap 7.0 mmol/L Blood Urea Nitrogen 20 mg/dl Creatinine 1.30 mg/dl Est Creatinine Clear Calc Drug Dose 63.2 ml/min Estimated GFR () 69.2 Estimated GFR (Non- 59.7 BUN/Creatinine Ratio 15.6 Random Glucose 115 mg/dl Calcium Level 8.9 mg/dl Test 10/23/17 11:43 Bedside Glucose 153 mg/dl (Ilana Molina ., PA-C) Assessment and Plan 57 y/o male with a history of CAD, HLD, multiple myeloma, and anxiety who was admitted on 10/16 for intractable pain related to lytic lesions. Intractable pain due to lytic lesions related to multiple myeloma--improving -Admit to med/surg -Heme/onc consulted, appreciate recs: Continue Decadron 40 mg PO qd x 2 more days. After radiation is completed, can then proceed with chemotherapy. Stable for discharge from oncology standpoint. -Pain management consulted, appreciate recs: Performed right shoulder nerve block -Radiation oncology consulted, appreciate recs: Radiation initiated 10/22, total 10 treatments -Fentanyl patch 50 mcg, Dilaudid 1 mg IV q3h prn, Lidoderm, oxycodone 10 mg PO q4h prn pain, gabapentin 100 mg PO TID, Decadron 40 mg PO qd -Pulmonology following: noncontrast chest CT, Dopplers of legs to assess for DVT. Bronch not warranted at this time. Chest pain concerning for PE--resolved, now only pain on right side radiating from shoulder -CTA chest 10/16 negative for PE -ABG grossly unremarkable -Noncontrast chest CT with slight progression of bibasilar densities suggesting atelectasis/scarring -Venous dopplers negative for DVT bilaterally -Echo shows EF 40-45%. Akinesis of basal septum, basal inferior wall, base to mid inferolateral wall. Hypokinesis of lateral base. Mild LVH. Stable from previous DEVONTE--resolved -Creatinine remains stable CAD, HLD -Continue ASA, pravastatin 80 mg PO hs Anxiety -Continue Vistaril 50 mg PO hs DVT prophylaxis -Heparin 5000 units SC q12h Code Status -Level I, FULL RESUSCITATION STATUS Dispo -Anticipate d/c to home tomorrow after this week's radiation completed, then f/ u with oncology for outpatient chemo -Pt requesting hospital bed, working with case management. Hospital bed will allow patient to reposition in ways not feasible in regular bed in order to help alleviate his pain (Ilana Molina ., PA-C) PA Physician Supervision Note: I interviewed and examined the patient. Discussed with Ilana Molina PAC and agree with findings and plan as documented in the note. Any exceptions or clarifications are listed here: None Patient is improved after nerve block for shoulder pain he is tolerating his radiation therapy without much discomfort His lung exam is clear but he still splinting heart regular abdomen is normoactive bowel sounds and soft vital signs are reviewed and stable Patient had metastatic melanoma intractable pain which is improved dexamethasone nerve block patient will continue radiation therapy and likely be discharged on 10/24 Documented By: Trey Campbell (Trey Campbell M.D.)
--- NOTE | 2017-10-23 14:56 | Pain Management Progress Note ---
Pain Management Progress Note Date of Service Oct 23, 2017. Subjective 57-year-old male with recent diagnosis of multiple myeloma with multiple lytic lesions identified including the right scapula, left pelvis and femur, multiple rib lesions, acute L2 compression fracture. He notes that his pain is overall improved with initiation of fentanyl patch, Cymbalta, Lidoderm, Aloxi code own however he is still reporting his pain ranges between 5 and 7 out of 10 particularly over his right scapula. He is right-hand dominant and is having difficulty eating as well as moving his arm secondary to pain. Objective Vital Signs: Last Vital Signs Documentation Date Time Temp Pulse Resp B/P (MAP) Pulse Ox O2 Delivery O2 Flow Rate FiO2 10/23/17 11:20 36.4 109 16 122/80 (94) 95 Room Air 10/22/17 08:30 2.0 Physical Exam: Constitutional: Well-developed, ill-appearing, slightly frail Psych: Awake, alert, and oriented 3 with normal affect and mood. Recent memory appears grossly intact Eyes: Pupils are equally round and reactive to light with normal size pupils, eyelids appear normal Ear, nose, mouth, and throat: Moist nasal and oral membranes, lips and tongues appear normal, no external ear abnormalities are noted Neck: The trachea is midline without deviation and no thyromegaly is noted Respiratory: Normal respiratory effort without distress, no audible wheezes or rhonchi CV: Normal S1 and S2, carotid upstroke is within normal limits Chest: Deferred GI/abdomen: Non-tender without guarding, no masses noted Musculoskeletal: Head is normocephalic and atraumatic, gait not observed, patient resides in bedside chair during examination Cervical: Lordotic curve: Normal Range of motion is normal with extension, flexion, side- bending, rotation Tenderness: Mild tenderness r over the axial midline Facet provocation: Negative bilaterally Hoffmans maneuver: Negative bilaterally Step-off injuries: None Strength: Strength is equal bilaterally with 5 out of 5 strength in all planes Sensation of upper extremities: Intact bilaterally Myofascial spasm: No appreciable spasm. No discrete trigger points noted Thoracic: Kyphotic curve: Slightly decreased, there is a well- healing axial midline incision from prior T7 surgery less than 30 days ago there is no appreciable erythema, drainage, discharge from the surgical incision site Range of motion is decreased with extension, flexion, side- bending, rotation Tenderness: Moderate tenderness over the axial midline Facet provocation: Negative bilaterally Scoliosis present: None Step-off injuries: None Myofascial spasm: Mild to moderate appreciable spasm. No discrete trigger points noted, there is exquisite tenderness over his right scapular inferior margin as well as over the suprascapular and infrascapular nerves. Lumbar: Lordotic curve: Slightly decreased with evidence of prior lumbar midline incision Range of motion is normal with extension, flexion, side- bending, rotation Tenderness: Nontender over the axial midline Facet provocation: Negative bilaterally Straight leg raise: Negative bilaterally Step-off injuries: None Strength: Strength is equal bilaterally with 5 out of 5 strength in all planes Sensation of lower extremities: Intact bilaterally Myofascial spasm: No appreciable spasm. No discrete trigger points noted Greater trochanters: Nontender bilaterally Sacroiliac joints: Tender bilaterally Pathologic reflexes noted: None Skin: No rashes, lesions, ulcers, and duration are noted Neuro: No nystagmus noted, the tongue is midline, the patient is able to rotate their head bilaterally : Deferred Laboratory Laboratory Findings 10/23/17 05:58 Assessment 1. Multiple myeloma with multiple osseous lytic lesions including the left femur, left pelvis, right scapula and multiple ribs predominantly right-sided, acute L2 compression fracture 2. Recent T7 vertebral body fracture status post instrumentation at [facility] 3. Acute pain secondary to numbers 1 and 2 4. Opioid-induced constipation-improved with senna 5. Right shoulder and scapular pain Recommendations 1. I recommend continuation of fentanyl 5o mcg every 72 hours, oxycodone 10 mg p.o. every 4hrs, backup IV hydromorphone, bowel regimen, Lidoderm patch, and Cymbalta 30 mg p.o. q. day 2. A right suprascapular and infrascapular nerve block will be performed today. Should he have good relief would be a good candidate for radio frequency ablation in my office as an outpatient. 3. I be happy to see him in my office as an outpatient should he have further pain concerns. Suprascapular and infrascapular nerve injection Side: Right Surgeon: Dr Bianca Boswell Anesthesia: local Diagnosis: Intractable shoulder pain secondary to multiple myeloma. The risks/benefits were explained. The patient was consented and agrees to proceed as above. Consent was witnessed. Time out was performed. There was no sign of infection at sites of needle insertion. The patient was placed in the seated position. Then with identification of skeletal landmarks, the suprascapular and infrascapular nerves were identified. Next, ChloraPrep was utilized for skin sterilization. Then a mixture of 7ml 0.5 % bupivacaine-MPF and 40mg kenalog was placed on a 25 gauge needle and 4 mL was injected at each site after negative aspiration for blood. The needle was withdrawn. Adequate hemostasis was noted. No complications were noted. The skin was cleansed and sterile bandage was applied. Report was given to the floor RN.
[2017-10-23] MEDS: FENTANYL PATCH REMOVE & WASTE SCH (16:31)
[2017-10-23] MEDS: FENTANYL 50 MCG/HR TDSY TD SCH (16:32)
[2017-10-23] MEDS: OXYCODONE HCL IR 5 MG TAB (IMMEDIATE RELEASE) PO PRN (16:35)
[2017-10-23] MEDS: hydrOXYzine HCL 25 MG TAB PO SCH (21:04)
[2017-10-23] MEDS: PRAVASTATIN SOD 40 MG TAB PO SCH (21:05)
[2017-10-24] VITALS (8 sets, daily range): BP systolic 118–141; BP diastolic 76–90; PULSE 66–116; TEMP 36.4–36.7; O2SAT 93–96
[2017-10-24] MEDS: CHECK FENTANYL PATCH PLACEMENT SCH ×3 (04:10→16:06)
[2017-10-24] MEDS: POTASSIUM CHLORIDE INJ 40 MEQ in SODIUM CHLORIDE 0.9% 1000ML 1,000 ML IV SCH (06:34)
[2017-10-24 07:35] LABS: CALCIUM 8.4 mg/dl (8.5-10.1); CREATININE 1.1 mg/dl (0.60-1.40); POTASSIUM 3.8 mmol/L (3.5-5.1)
[2017-10-24] MEDS: ASPIRIN 81 MG ECTAB PO SCH (08:04)
[2017-10-24] MEDS: GABAPENTIN 100 MG CAP PO SCH ×2 (08:04→12:50)
[2017-10-24] MEDS: OXYCODONE HCL IR 5 MG TAB (IMMEDIATE RELEASE) PO PRN ×2 (08:04→12:51)
[2017-10-24] MEDS: DOCUSATE SODIUM/SENNA 50/8.6MG TAB PO SCH (08:04)
[2017-10-24] MEDS: OMEGA-3 (PURIFIED FISH OIL) 1 GM CAP PO SCH (08:04)
[2017-10-24] MEDS: DEXAMETHASONE 4 MG TAB PO SCH (08:05)
[2017-10-24] MEDS: CHOLECALCIFEROL 1000 INTER.UNIT TAB PO SCH (08:05)
[2017-10-24] MEDS: DOCUSATE SODIUM 100 MG CAP PO SCH (08:06)
[2017-10-24] MEDS: LIDODERM (LIDOCAINE) PATCH 5% TD SCH (08:06)
[2017-10-24] MEDS: DULOXETINE (CYMBALTA) 30 MG CAP PO SCH (08:06)
[2017-10-24 08:07] LABS: HEMATOCRIT 26.1 % (42-52); MEAN CELL VOLUME 90.6 fL (80-100); MEAN CORPUSCULAR HEMOGLOBIN 31.3 pg (25-34); MEAN PLATELET VOLUME 8.4 fL (7.4-10.4); NUCLEATED RED BLOOD CELL ABS 0.02 K/uL (0-0); PLATELET COUNT 162 K/uL (130-400); RED CELL DISTRIBUTION WIDTH CV 17.9 % (11.5-14.5); RED CELL DISTRIBUTION WIDTH SD 59.8 fL (36.4-46.3); WHITE BLOOD COUNT 10.63 K/uL (4.8-10.8)
[2017-10-24 08:23] LABS: MEAN CORPUSCULAR HGB CONC 34.5 g/dl (32-36)
[2017-10-24] MEDS: INSULIN ASPART 100 UNITS/ML 3 ML PEN SC SCH ×2 (09:20→12:49)
[2017-10-24] MEDS: HEPARIN SOD 5000 UNIT/0.5 ML CARP SQ SCH (09:20)
--- NOTE | 2017-10-24 10:54 | Pain Management Progress Note ---
Pain Management Progress Note Date of Service Oct 24, 2017. Subjective 57-year-old male with recent diagnosis of multiple myeloma with multiple lytic lesions identified including the right scapula, left pelvis and femur, multiple rib lesions, acute L2 compression fracture. He notes that his pain is overall improved with initiation of fentanyl patch, Cymbalta, Lidoderm, OxyIR. He reports dramatic improvement in his right scapular pain after right supra and infrascapular nerve block performed yesterday. He is able to utilize his arm much more effectively and was able to eat with his right hand yesterday. He has still some pain in the intercostal brachial nerve distribution and is hopeful for block today. He offers no additional complaints and reports that he is not having any medication side effects at this time. Objective Vital Signs: Last Vital Signs Documentation Date Time Temp Pulse Resp B/P (MAP) Pulse Ox O2 Delivery O2 Flow Rate FiO2 10/24/17 08:38 93 Room Air 10/24/17 07:58 36.5 86 20 124/76 (92) 10/23/17 16:00 2.0 Physical Exam: Constitutional: Well-developed, ill-appearing, slightly frail Psych: Awake, alert, and oriented 3 with normal affect and mood. Recent memory appears grossly intact Eyes: Pupils are equally round and reactive to light with normal size pupils, eyelids appear normal Ear, nose, mouth, and throat: Moist nasal and oral membranes, lips and tongues appear normal, no external ear abnormalities are noted Neck: The trachea is midline without deviation and no thyromegaly is noted Respiratory: Normal respiratory effort without distress, no audible wheezes or rhonchi CV: Normal S1 and S2, carotid upstroke is within normal limits Chest: Deferred GI/abdomen: Non-tender without guarding, no masses noted Musculoskeletal: Head is normocephalic and atraumatic, gait not observed, patient resides in bedside chair during examination Thoracic: Kyphotic curve: Slightly decreased, there is a well- healing axial midline incision from prior T7 surgery less than 30 days ago there is no appreciable erythema, drainage, discharge from the surgical incision site Range of motion is decreased with extension, flexion, side- bending, rotation Tenderness: Moderate tenderness over the axial midline Facet provocation: Negative bilaterally Scoliosis present: None Step-off injuries: None Myofascial spasm: Mild to moderate appreciable spasm. No discrete trigger points noted, there is mild to moderate tenderness over his right scapular inferior margin but much improved from yesterday Skin: No rashes, lesions, ulcers, and duration are noted Neuro: No nystagmus noted, the tongue is midline, the patient is able to rotate their head bilaterally : Deferred Laboratory Laboratory Findings 10/24/17 07:55 Assessment 1. Multiple myeloma with multiple osseous lytic lesions including the left femur, left pelvis, right scapula and multiple ribs predominantly right-sided, acute L2 compression fracture 2. Recent T7 vertebral body fracture status post instrumentation at [facility] 3. Acute pain secondary to numbers 1 and 2 4. Opioid-induced constipation-improved with senna 5. Right shoulder and scapular pain Recommendations 1. I recommend continuation of fentanyl 50 mcg every 72 hours, oxycodone 10 mg p.o. every 4hrs, bowel regimen, Lidoderm patch, and Cymbalta 30 mg p.o. q. day 2. A right intercostal brachial nerve block will be performed today. 3. I am pleased with the results of his right suprascapular and infrascapular nerve block performed yesterday. He would be good candidate for radiofrequency ablation as an outpatient in my office should he have recurrence of pain. 3. I would be happy to see him in my office as an outpatient should he have further pain concerns. Intercostal brachial nerve injection Side: Right Surgeon: Dr Bianca Boswell Anesthesia: local Diagnosis: Intractable shoulder pain secondary to multiple myeloma. The risks/benefits were explained. The patient was consented and agrees to proceed as above. Consent was witnessed. Time out was performed. There was no sign of infection at sites of needle insertion. The patient was placed in the supine position with his arm over his head. Then with identification of skeletal landmarks, the intercostal brachial nerve was identified. Next, ChloraPrep was utilized for skin sterilization. Then a mixture of 4ml 0.5 % bupivacaine-MPF and 40mg kenalog was placed on a 25 gauge needle and injected after negative aspiration for blood. The needle was withdrawn. Adequate hemostasis was noted. No complications were noted. The skin was cleansed and sterile bandage was applied. Report was given to the floor RN.
[2017-10-24] MEDS ORDERED: TRIAMCINOLONE ACET 40 MG/ML VIAL ONE (12:43)
[2017-10-24] MEDS ORDERED: BUPIVACAINE 0.5 % 5 MG/1 ML PF 10ML VIAL ONE (12:43)
[2017-10-24] MEDS ORDERED: DRGTP50 TD (14:08)
[2017-10-24] MEDS ORDERED: DXM4 PO (14:08)
[2017-10-24] MEDS ORDERED: LDDP5 TD (14:08)
[2017-10-24] MEDS ORDERED: OXYC-164 PO ×2 (14:08→14:22)
[2017-10-24] MEDS ORDERED: NRN100 PO (14:08)
[2017-10-24] MEDS ORDERED: CYM30 PO (14:08)
[2017-10-24] MEDS ORDERED: CLC100 PO (14:08)
--- NOTE | 2017-10-24 14:19 | Discharge Instructions ---
Discharge Instructions Date of Service Oct 24, 2017. Admission Reason for Admission: Dehydration,Lytic Bone Lesions On Xray Discharge Discharge Diagnosis / Problem: Intractable pain due to multiple myeloma, acute kidney injury Discharge Goals Goal(s): Decrease discomfort, Improve function, Diagnostic testing, Therapeutic intervention Activity Recommendations Activity Limitations: resume your previous activity (as tolerated) . Instructions / Follow-Up Instructions / Follow-Up You were admitted to the hospital with intractable pain particularly in the right shoulder. This pain is due to lytic lesions in the bone caused by multiple myeloma. Oncology, radiation oncology, and pain management were consulted to help alleviate your pain. You are now receiving palliative radiation and have been started on several oral medications to help reduce your pain. Pain management also performed two nerve blocks during your stay which has helped reduce your pain and increase movement of your right arm. You are now medically stable to be discharged home. You have a radiation schedule for next week as well as a follow up appointment with Dr. Smith to start your chemotherapy as an outpatient. Medications: *Apply fentanyl patch 50 mcg to skin for 3 days, then remove. *Apply Lidoderm patch to painful area (right upper arm, back, chest, shoulder, etc). Leave patch on for 12 hours, then remove and keep off for 12 hours. Recommend applying patch at 9 am and removing at 9 pm. *Please take gabapentin 100 mg three times a day. *You may take oxycodone 10 mg 1 tablet up to every 4 hours as needed for pain. A short supply of this has been renewed for you. *Please take Cymbalta 30 mg daily. *You have one day remaining of your oral steroid course. Please take Decadron 40 mg (10 tablets) tomorrow, 10/25. *Please take Colace 100 mg twice a day. This is a stool softener as your narcotics can cause constipation. Continue to take Senokot twice a day. *Continue your other home medications as prescribed. Follow up: *You will be scheduled to follow up with your primary care provider and pain management. *You have received your radiation schedule. *You are scheduled to follow up with Dr. Smith on 10/28 at 1:50 pm. Please seek medical attention if you experience fevers, chills, sweats, dizziness/lightheadedness, loss of consciousness, chest pain, shortness of breath, nausea, vomiting, numbness or tingling. Current Hospital Diet Patient's current hospital diet: Regular Diet Discharge Diet Recommended Diet: Regular Diet Pending Studies Studies pending at discharge: no Medical Emergencies . Who to Call and When: Medical Emergencies: If at any time you feel your situation is an emergency, please call 911 immediately. . Non-Emergent Contact Non-Emergency issues call your: Primary Care Provider, Oncologist Call Non-Emergent contact if: you have a fever, your pain is not controlled, your pain is worsening, your pain is unusual for you, your pain is concerning you, you have any medication questions . Past History Medical & Surgical History: (1) Acute kidney injury (2) Multiple myeloma (3) Lytic bone lesions on xray . "Provider Documentation" section prepared by Ilana Molina. . [place] Drug Monitoring Program Search Results: patient reviewed within database, no issues identified
--- NOTE | 2017-10-24 14:36 | Discharge Summary ---
Discharge Summary Date of Service Oct 24, 2017. Discharge Summary Admission Date: Oct 16, 2017 at 17:28 Discharge Date: Oct 24, 2017 Discharge Disposition: Home Principal Diagnosis: Intractable pain due to lytic lesions/multiple myeloma, acute kidney injury Problems/Secondary Diagnoses: (1) Multiple myeloma Status: Chronic CAD, HLD, anxiety Immunizations: Have You Had Influenza Vaccine: Unknown History of Tetanus Vaccine?: Unknown History of Pneumococcal: Unknown History of Hepatitis B Vaccine: Unknown Procedures: Procedures: -Right suprascapular and infrascapular nerve block 10/23 -Right intercostal brachial nerve block 10/24 (CHEST) THORAX WITHOUT CT DOSE: 404.99 mGy.cm HISTORY: Hypoxemia possible atelectasis TECHNIQUE: Multiaxial CT images of the chest were performed without contrast. A dose lowering technique was utilized adhering to the principles of ALARA. COMPARISON: Chest 10/18/2017. Chest CTA 10/16/2017. FINDINGS: No pneumothorax. Advanced emphysema is again noted. Trace mucoid material within the trachea. No pleural effusions. Focal airspace consolidation within the base of the lower lobes posteriorly. This favors atelectasis. There is also linear density within the superior segment of the left lower lobe scarlike density within the right upper lobe. These remain unchanged. No new focal lung consolidations. The visualized liver and spleen are unremarkable. No significant change in the gastrohepatic lymphadenopathy. No significant change in the lower cervical, mediastinal, and majority of the paravertebral lymphadenopathy. Multiple lytic lesions are again noted throughout the visualized osseous structures consistent with metastatic disease. Posterior fusion from T6 through T8 with pedicle screws and rods. The hardware appears intact. Progressive destruction of the majority of the T3 vertebral body with slight progression of the moderate pathologic compression fracture. Paravertebral soft tissue abnormality at this T3 vertebral body has progressed. This currently measures a maximal thickness of 1.8 cm, previously demonstrating a maximal thickness of 1.4 cm. There appears be slight increase in size in the soft tissue mass centered at the left T7 pedicle. This appears to extend into the central canal/epidural space and likely results in mass effect along the central canal. However, this is suboptimally evaluated due to the metallic artifact at this level. Anterior pericardial lymph nodes/masses remain unchanged. IMPRESSION: 1. Progressive destruction of the majority of the T3 vertebral body with slight progression of the moderate pathologic compression fracture at this level. This is a result of the progressive paravertebral soft tissue mass at this location. 2. Slight progression of the mass centered at the left T7 pedicle. This likely extends into the central canal/epidural space at this location. However, this is suboptimally evaluated due to the metallic artifact at this level. 3. The lower cervical, mediastinal, and gastrohepatic adenopathy is similar to the prior study. 4. Slight progression of the bibasilar densities suggesting atelectasis/scarring. 5. Multiple lytic lesions seen throughout the visualized osseous structures consistent with metastatic disease. CT SCAN OF THE ABDOMEN AND PELVIS WITH IV CONTRAST CLINICAL HISTORY: Generalized abdominal pain. Back pain. Reported history of multiple myeloma. COMPARISON STUDY: Abdominal CT dated 09/27/2017. TECHNIQUE: Following the IV administration of 119 cc of Optiray 320, CT scan of the abdomen and pelvis is performed from the lung bases to the proximal femora. Images are reviewed in the axial, sagittal, and coronal planes. IV contrast was administered without complication. A dose lowering technique was utilized adhering to the principles of ALARA. The examination is degraded by streak artifact from the patient's right arm which could not be elevated above the abdomen. FINDINGS: Lung bases: The heart is top normal in size and without pericardial effusion. There are coronary artery calcifications. A tiny hiatal hernia is identified. Emphysema is noted. There is bibasilar scarring/atelectasis. No airspace consolidation is seen typical for pneumonia and there is no pleural effusion. Liver: The contrast-enhanced liver is normal in size, contour, and attenuation. There is no intrahepatic biliary ductal dilatation. The hepatic veins and portal veins are patent. A calcified granuloma is noted in the right lobe. A subcentimeter hypodensity in the left lobe on image #86 likely represents a cyst but is too small for definitive characterization. This is unchanged from previous. Gallbladder: Unremarkable. Spleen: Normal in size and attenuation, measuring 11.0 cm in length. Pancreas: Unremarkable. Adrenal glands: Unremarkable. Kidneys: The contrast enhanced kidneys demonstrate cortical atrophy and are without hydronephrosis. The kidneys enhance symmetrically. There is a 2 mm nonobstructing left renal calculus. Abdominal vasculature: There is advanced atherosclerotic calcification of the abdominal aorta. There is an aortobiiliac bypass graft. The bypass is widely patent. The big sandy common iliac arteries appears thrombosed. Bowel: There is moderate sigmoid diverticulosis with evidence of mild acute sigmoid diverticulitis. This has improved from 09/27/2017. No evidence of abscess is identified. No bowel obstruction is seen. The appendix is well-visualized and normal. Peritoneum: There is no intraperitoneal free air or abdominal ascites. There is a small fat-containing umbilical hernia. Lymphadenopathy: Upper abdominal and retroperitoneal lymphadenopathy is similar to previous. A right cardiophrenic node on image #28 measures 2.8 x 1.8 cm. A portacaval node on image #98 measures 3.8 x 3.8 cm. An aortocaval node on image #158 measures 2.1 x 1.5 cm. There are mildly enlarged iliac chain nodes. No inguinal adenopathy is seen. Pelvic viscera: The the prostate gland is normal in size and heterogeneous. The bladder is normal as visualized. Skeletal structures: The skeletal structures are osteopenic. Extensive/multifocal osteolytic metastatic disease is identified throughout all the visualized bony structures. There is a mild chronic compression deformity of L5. There is a minimal superior endplate compression deformity of L2. This appears new from 09/27/2017. A large osteolytic lesion in the medial left ilium measures 5.4 x 3.2 cm. Lesions are also identified within the proximal femora bilaterally. Lesions in the left femoral neck may place the patient at risk for insufficiency fracture. There is minimal epidural extension from a lesion in the posterior aspect of L5 seen on axial image #253. IMPRESSION: 1. 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 2. There is a minimal superior endplate compression deformity of L2. This appears new from 09/27/2017 and is likely acute. 3. A large osteolytic lesion is seen in the medial left ilium. Additionally, lesions are present within proximal femora including the left femoral neck. Note that these lesions may be at risk for insufficiency fracture. 4. There is minimal epidural extension of a lesion within the right posterior aspect of the L5 vertebral body. This does not cause significant acquired compromise of the central canal at this time. 5. Abdominal and retroperitoneal lymphadenopathy is similar to the 09/27/2017 examination. 6. There is evidence of resolving diverticulitis of the sigmoid colon. This has improved from 09/27/2017. 7. Emphysema. 8. Additional findings as above. Consultations: Hematology/oncology Radiation oncology Pain management Medication Reconciliation New Medications: Oxycodone Hcl (Oxycodone Hcl) 10 Mg Tab 1 TAB PO Q4H PRN for Pain for 30 Days, #120 TAB Dexamethasone (Dexamethasone) 4 Mg Tab 40 MG PO DAILY for 1 Day, #10 TAB Take total of 40 mg (10 tablets) on 10/25 Docusate Sodium (Docusate Sodium) 100 Mg Cap 100 MG PO BID for 30 Days, #60 CAP Duloxetine HCl (Duloxetine HCl) 30 Mg Cap 30 MG PO QAM for 30 Days, #30 CAP Fentanyl (Fentanyl) 50 Mcg Tdsy 50 MCG TD Q3D@1600 for 3 Days, #1 PATCH Gabapentin (Gabapentin) 100 Mg Cap 100 MG PO TID for 30 Days, #90 CAP Lidocaine (Lidocaine) 1 Patch Tdsy 1 PATCH TD QAM for 30 Days, #30 PATCH Apply for 12 hours, then remove for 12 hours. Continued Medications: Aspirin (Aspirin Ec) 81 Mg Tab 81 MG PO DAILY Cholecalciferol (Vitamin D3) 1,000 Unit Tab 1 TAB PO DAILY, TAB Garlic (Garlic) 500 Mg Cap 1000 MG PO QAM Hydroxyzine Pamoate (Vistaril) 25 Mg Cap 2 CAP PO HS, CAP [place]-3 Fatty Acids (Fish Oil) 1 Cap Cap 1 CAP PO QAM Pravastatin Sodium (Pravachol) 80 Mg Tab 1 TAB PO DAILY, TAB Sennosides-Docusate Sodium (Docusate Sodium/Senna) 1 Tab Tab 1 TAB PO BID Discharge Exam Patient reports feeling well. He denies any pain currently following his right intercostal brachial nerve block earlier today. He has some mild dyspnea on exertion but denies any SOB at rest. He is moving his bowels and had a BM today. The patient denies fevers, chills, sweats, chest pain, palpitations, claudication, cough, wheezing, shortness of breath at rest, nausea, vomiting, abdominal pain, dysuria, hematuria, urinary retention, paralysis, weakness, numbness and tingling. Constitutional: No fever, No chills, No sweats Eyes: No worsening of vision, No eye pain, No diplopia ENT: No hearing loss, No nasal symptoms, No trouble swallowing Respiratory: No cough, No wheezing, No shortness of breath Cardiovascular: No chest pain, No claudication, No palpitations Abdomen: No pain, No nausea, No vomiting Musculoskeletal: No joint pain, No muscle pain, No swelling Genitourinary - Male: No dysuria, No urinary retention, No hematuria Neurologic: No paralysis, No weakness, No numbness/tingling Integumentary: No rash, No itch, No color change General appearance: Well-developed, well-nourished, no apparent distress Head: Normocephalic, atraumatic Eyes: Normal inspection, PERRL, EOMI ENT: Normal ENT inspection, hearing grossly normal, pharynx normal Neck: Supple, no JVD, trachea midline Respiratory/Chest: Lungs clear to auscultation, normal breath sounds, no respiratory distress Cardiovascular: Regular rate & rhythm, no gallop, no murmur Abdomen/GI: Normal bowel sounds, non-tender, soft Extremities/Musculoskeletal: Normal inspection, no calf tenderness, no pedal edema Neurological/Psych: Alert, normal mood/affect, oriented x 3 Skin: Normal color, warm/dry, no rash Hospital Course 57 y/o male with a history of CAD, HLD, multiple myeloma, and anxiety who was admitted on 10/16 for intractable pain related to lytic lesions. Intractable pain due to lytic lesions related to multiple myeloma--improving -Admit to med/surg -Heme/onc consulted, appreciate recs: Spoke to Dr. Smith prior to discharge. Continue Decadron 40 mg one more day, then stop. Will follow up next week to start chemo and restart Decadron. -Pain management consulted, appreciate recs: Performed right intercostal brachial nerve block. Can follow up with Dr. Boswell as outpatient. May be good candidate for radiofrequency ablation as outpatient if pain recurs. Continue fentanyl 50 mcg, oxycodone, Lidoderm, Cymbalta, and bowel regimen. -Radiation oncology consulted, appreciate recs: Radiation initiated 10/22, total 10 treatments. Schedule for next week provided to patient. -Fentanyl patch 50 mcg, Dilaudid 1 mg IV q3h prn, Lidoderm, oxycodone 10 mg PO q4h prn pain, gabapentin 100 mg PO TID, Decadron 40 mg PO qd. Continue oral meds and patches as outpatient, pt's previous oxycodone renewed for him. Also given script for last day of Decadron. -Pulmonology following: noncontrast chest CT, Dopplers of legs to assess for DVT. Bronch not warranted at this time. Chest pain concerning for PE--resolved, now only pain on right side radiating from shoulder -CTA chest 10/16 negative for PE -ABG grossly unremarkable -Noncontrast chest CT with slight progression of bibasilar densities suggesting atelectasis/scarring -Venous dopplers negative for DVT bilaterally -Echo shows EF 40-45%. Akinesis of basal septum, basal inferior wall, base to mid inferolateral wall. Hypokinesis of lateral base. Mild LVH. Stable from previous DEVONTE--resolved -Creatinine remains stable CAD, HLD -Continue ASA, pravastatin 80 mg PO hs Anxiety -Continue Vistaril 50 mg PO hs DVT prophylaxis -Heparin 5000 units SC q12h Code Status -Level I, FULL RESUSCITATION STATUS Dispo -Stable for discharge, pt will continue radiation next week, chemo next week -Pt requesting hospital bed, working with case management. Hospital bed will allow patient to reposition in ways not feasible in regular bed in order to help alleviate his pain PA Physician Supervision Note: I interviewed and examined the patient. Discussed with Ilana STAPLES and agree with findings and plan as documented in the note. Any exceptions or clarifications are listed here: None Patient is doing well after his 2nd nerve block performed by Dr. Boswell he sustained radiation therapy today is doing well patient will be transitioned home to follow-up outpatient for continued radiation therapy and also following up with Dr. Irwin for hemotherapy for his multiple myeloma. We are having a hospital bed delivered prior to going Vital signs are stable. Patient is able to move his right arm without difficulty his lungs are clear extremities with trace edema Intractable brachial plexus pain due to the lymphadenopathy and bony metastases for multiple myeloma this is improved greatly with dexamethasone oxycodone and nerve blocks as mentioned above patient also started on duloxetine for adjunctive pain control and transdermal fentanyl patch as well as Neurontin he will follow-up as mentioned above but also can follow-up with pain management if need be Documented By: Trey Campbell Total Time Spent: Greater than 30 minutes This includes examination of the patient, discharge planning, medication reconciliation, and communication with other providers. Discharge Instructions Please refer to the electronic Patient Visit Report (Discharge Instructions) for additional information. Follow-Up Radiation oncology Hematology/oncology Pain management PCP Additional Copies To Valeria Lackey C.R.N.P.
[2017-10-28] MEDS ORDERED: DRGTP50 TOP (11:57)
[2017-10-28] MEDS ORDERED: OXYC-164 PO (11:57)
== END 2017-10-24 18:32 | disposition home or self-care (01) | DRG 565 ==
LOC: C.EDB 11:25 → C.4E 17:28 → ENRESERV 19:06 → CANRESERV 19:06 → ENRESERV 19:08
PROVIDERS: ADMIT Family Medicine; ATTEND Internal Medicine
DX: M84.81 Other disorders of continuity of bone, shoulder (principal); C90.00 Multiple myeloma not having achieved remission; N17.9 Acute kidney failure, unspecified; E78.5 Hyperlipidemia, unspecified; I25.2 Old myocardial infarction; I25.10 Atherosclerotic heart disease of native coronary artery without angina pectoris; R07.9 Chest pain, unspecified; Z79.82 Long term (current) use of aspirin; Z95.5 Presence of coronary angioplasty implant and graft; Z87.891 Personal history of nicotine dependence

== ENCOUNTER → 2017-10-27 | Outpatient (CLI) | payer OTHER ==
[~2017-10-27] MED LIST changes: -ACET-1047 PO; +CHOL1000 PO; +CLC100 PO; +CYM30 PO; +DRGTP50 TD; +DRGTP50 TOP; +DXM4 PO; +HYDR25CA PO; +LDDP5 TD; +LENA20CA PO; -METO-478 PO; +NRN100 PO; -PRAV20TA PO; +PRAV80TA PO; +VLCI SQ
--- NOTE | 2017-10-27 15:25 | DIAGNOSTIC IMAGING REPORT ---
L-SPINE MIN 4 VIEWS ROUTINE CLINICAL HISTORY: Back pain. History of multiple myeloma. COMPARISON: CT of the abdomen and pelvis September 27, 2017. FINDINGS: Numerous lytic lesions are identified within the visualized skeletal structures, including a lytic lesion within the posterior medial aspect of the left iliac bone as well as numerous lesions within the lumbar spine. Mild loss of height of L5 is unchanged since exam of October 16, 2017. The subtle L2 pathologic fracture shown on that exam is not well visualized on this exam. There is moderate multilevel degenerative disc disease and facet arthrosis of the lumbar spine. IMPRESSION: 1. Numerous lytic lesions within the visualized skeletal structures consistent with the known history of multiple myeloma. 2. No significant change in appearance of the lumbar spine since CT of October 16, 2017 when allowing for differences in technique. Stable loss of height of the L5 vertebral body. Subtle L2 pathologic fracture shown on that exam not well visualized on this study due to technique. Electronically signed by: Norm Robertson M.D. 10/27/2017 3:23 PM Dictated Date/Time: 10/27/2017 3:20 PM
--- NOTE | 2017-10-27 15:26 | DIAGNOSTIC IMAGING REPORT ---
PELVIS 1 OR 2 VIEW ROUTINE CLINICAL HISTORY: Back pain. Multiple myeloma. COMPARISON STUDY: CT of the abdomen and pelvis October 16, 2017. FINDINGS: Heterogeneity of the visualized skeletal structures is noted. This is due to numerous lytic lesions shown better on CT of October 16, 2017. No pathologic fracture is identified by radiography. IMPRESSION: 1. Innumerable lytic lesions consistent with known history of multiple myeloma which appears similar to CT of October 16, 2017. 2. No pathologic fracture identified by radiography within the pelvis or hips. Electronically signed by: Norm Robertson M.D. 10/27/2017 3:25 PM Dictated Date/Time: 10/27/2017 3:24 PM
== END | disposition home or self-care (01) ==
LOC: C.RAD 14:42
PROVIDERS: ATTEND Physician Assistant Medical
DX: M54.5 Low back pain (principal); C90.00 Multiple myeloma not having achieved remission

== ENCOUNTER → 2017-10-31 | Outpatient (CLI) | payer OTHER ==
[~2017-10-31] MED LIST changes: +CIPR-255 PO; +CRFUDL PO; +CYM/30 PO; +DRGTP25 TD; +DULO60CA44 PO; +DXM/4 PO; -DXM4 PO; +Enteral Nutrition Formula PO; +FNTTP25 TD; +FNTTP50 TD; +GABA-112 PO; +MAGIC1 PO; +PANT40TA PO
--- NOTE | 2017-10-31 14:16 | DIAGNOSTIC IMAGING REPORT ---
CT SCAN OF THE ABDOMEN AND PELVIS WITHOUT CONTRAST CLINICAL HISTORY: MULTIPLE MYELOMA LOW PELVIC PAIN COMPARISON STUDY: 10/16/2017 TECHNIQUE: CT scan of the abdomen and pelvis was performed from the lung bases to the proximal femurs. Images are reviewed in the axial, sagittal, and coronal planes. IV contrast was not administered for this examination. A dose lowering technique was utilized adhering to the principles of ALARA. CT DOSE: 454.60 mGy.cm FINDINGS: Lower chest: There is pulmonary emphysema. There is bibasilar atelectasis/scarring. Liver: The unenhanced liver is normal in size, contour, and attenuation. There is no intrahepatic biliary ductal dilatation. Gallbladder: Unremarkable. Spleen: Normal in size and attenuation. Pancreas: Unremarkable. Adrenal glands: Unremarkable. Kidneys: No renal, ureteral, or bladder calculi are visualized. Bowel: There are no transition zones indicate bowel obstruction. There is colonic diverticulosis. There is sigmoid wall thickening. There is minimal infiltration of the perisigmoid fat. The findings are consistent with diverticulitis. This is slightly improved when compared the preceding study. Peritoneum: There is no intraperitoneal free air or abdominal ascites. Vasculature: There is an aortobifemoral bypass graft. Adenopathy: There is persistent retroperitoneal adenopathy. Multiple mildly enlarged aortocaval lymph nodes remain unchanged. There are enlarged lymph nodes in the region the gastrohepatic ligament. There is an enlarged peripancreatic lymph node. The lymph nodes remain similar in size to the prior study Pelvic viscera: The bladder, and pelvic viscera are unremarkable. Skeletal structures: There are in numerable osteolytic lesions consistent with the clinical history of multiple myeloma. Persistent minimal epidural disease the L5 level is again suspected. IMPRESSION: 1. Extensive osteolytic metastatic disease, unchanged from the prior study. The findings are consistent with the clinically reported multiple myeloma 2. Resolving sigmoid diverticulitis 3. Stable abdominal and retroperitoneal lymphadenopathy 4. Emphysema Electronically signed by: Saravanan Santana M.D. 10/31/2017 2:14 PM Dictated Date/Time: 10/31/2017 2:03 PM
--- NOTE | 2017-11-21 11:37 | CODING QUERY NO DIAGNOSIS ---
TREATMENT RENDERED WITHOUT A DIAGNOSIS To promote full compliance with coding requirements relating to patient care, physician participation is requested in all cases of public relations supervisor uncertainty. Please assist us with providing a diagnosis/symptom for the test(s) below: A diagnosis/symptom was not documented on your Order. A valid diagnosis/symptom is required to bill all insurances. Please remember that we are unable to code a diagnosis of rule out, probable, possible, questionable, or suspected. Tests that require a diagnosis: DOS: 10/31/17 * CT ABD/PELVIS NO IV OR ORAL CN DIAGNOSIS: Provider Signature: Date: Thank you Reina Cadet [employer] Management Once completed, please kindly fax back to [phone] For questions please call [phone]
== END | disposition home or self-care (01) ==
LOC: C.CTS 13:34
PROVIDERS: ATTEND Physician Assistant Medical
DX: C90.00 Multiple myeloma not having achieved remission (principal)

== ENCOUNTER → 2017-11-11 | Outpatient (CLI) | payer OTHER ==
[~2017-11-11] MED LIST changes: -DRGTP50 TOP; -FNTTP25 TD; -MAGIC1 PO
--- NOTE | 2017-11-11 11:40 | DIAGNOSTIC IMAGING REPORT ---
CHEST 2 VIEWS ROUTINE HISTORY: MULTIPLE MYELOMA COMPARISON: Chest 10/18/2017. FINDINGS: No pneumothorax. No pleural effusions. The heart is normal in size. Posterior fusion within the mid thoracic spine is again noted. Lungs are hyperexpanded with apical predominant emphysematous changes. Interstitial thickening at the lung bases is likely due to vascular crowding. However, there is a progressive patchy density within the left infrahilar/lingular location. The right lung remains clear. The heart is normal in size. IMPRESSION: Progressive patchy airspace opacity within the left infrahilar/lingular location. This is worrisome for a pneumonia. Electronically signed by: Rahul Garcia M.D. 11/11/2017 11:38 AM Dictated Date/Time: 11/11/2017 11:34 AM
== END | disposition home or self-care (01) ==
LOC: C.RAD 10:33
PROVIDERS: ATTEND Nurse Practitioner Family
DX: C90.00 Multiple myeloma not having achieved remission (principal)

== ENCOUNTER 2017-11-12 09:36 | Inpatient (IN) | payer OTHER ==
[~2017-11-12] VITALS: Ht 175.3 cm; Wt 75.0 kg
[~2017-11-12 09:36] MED LIST changes: -CIPR-255 PO; -CRFUDL PO; -CYM/30 PO; -DRGTP25 TD; -DULO60CA44 PO; -DXM/4 PO; -Enteral Nutrition Formula PO; -FNTTP50 TD; -GABA-112 PO; -PANT40TA PO
[2017-11-12] MEDS ORDERED: SODIUM CHLORIDE 0.9% 1000ML 1,000 ML IV STA ×2 (10:29→14:06)
[2017-11-12] MEDS ORDERED: DXM/4 PO (10:41)
[2017-11-12] MEDS ORDERED: CIPR-255 PO (10:41)
[2017-11-12] MEDS ORDERED: LDDP5 TD (10:41)
[2017-11-12] MEDS ORDERED: FNTTP50 TD (10:41)
[2017-11-12] MEDS ORDERED: OXYC-164 PO (10:41)
[2017-11-12] MEDS ORDERED: GABA-112 PO (10:41)
[2017-11-12] MEDS ORDERED: CYM/30 PO (10:41)
--- NOTE | 2017-11-12 10:57 | DIAGNOSTIC IMAGING REPORT ---
CHEST ONE VIEW PORTABLE HISTORY: fever COMPARISON: Chest 11/11/2017. FINDINGS: Slight improvement in the left infrahilar/lingular airspace opacity. The right lung remains clear. Emphysema. Posterior fusion within the mid thoracic spine. The heart is normal in size. No pleural effusions. No pneumothorax. IMPRESSION: Slight improvement in the left infrahilar/lingula airspace opacity. This likely represents a pneumonia. One month chest x-ray follow up is recommended to ensure resolution. Electronically signed by: Rahul Garcia M.D. 11/12/2017 10:56 AM Dictated Date/Time: 11/12/2017 10:55 AM
[2017-11-12 11:11] LABS: HEMOGLOBIN 9.7 g/dL (14.0-18.0); MEAN CELL VOLUME 91.8 fL (80-100); MEAN CORPUSCULAR HEMOGLOBIN 31.8 pg (25-34); MEAN CORPUSCULAR HGB CONC 34.6 g/dl (32-36); RED CELL DISTRIBUTION WIDTH CV 18.7 % (11.5-14.5); RED CELL DISTRIBUTION WIDTH SD 62.3 fL (36.4-46.3)
[2017-11-12 11:17] LABS: ISTAT CREATININE 0.7 mg/dl (0.6-1.3); ISTAT IONIZED CALCIUM 1.12 mmol/l (1.12-1.32); ISTAT POTASSIUM 3.9 mEq/L (3.3-5.0)
[2017-11-12 11:18] LABS: INR 1.1 (0.9-1.1)
[2017-11-12 11:21] LABS: MEAN PLATELET VOLUME 10.3 fL (7.4-10.4); PLATELET COUNT 83 K/uL (130-400)
[2017-11-12 11:27] LABS: ALBUMIN 2.3 gm/dl (3.4-5.0); ALT/SGPT 26 U/L (12-78); BLOOD UREA NITROGEN 23 mg/dl (7-18); CALCIUM 8.3 mg/dl (8.5-10.1); CARBON DIOXIDE 22 mmol/L (21-32); CREATININE 0.99 mg/dl (0.60-1.40); GLUCOSE 135 mg/dl (70-99); POTASSIUM 3.8 mmol/L (3.5-5.1); SODIUM 136 mmol/L (136-145)
[2017-11-12 11:31] LABS: ALKALINE PHOSPHATASE 133 U/L (45-117); AST/SGOT 16 U/L (15-37); CKMB 0.8 ng/ml (0.5-3.6); TOTAL PROTEIN 8.1 gm/dl (6.4-8.2)
[2017-11-12 11:35] LABS: BASO % 0.4 %; BASO ABS # 0.01 K/uL (0-0.2); IG# 0.01 K/uL (0.00-0.02); LYMPH % 12.7 %; LYMPH ABS # 0.33 K/uL (1.2-3.4); MONO % 18.8 %; MONO ABS # 0.49 K/uL (0.11-0.59); NEUT % 67.7 %; NEUT ABS # 1.76 K/uL (1.4-6.5)
[2017-11-12] MEDS ORDERED: LEVAQUIN 750MG / 150ML D5W IV STA (11:59)
[2017-11-12 12:29] VITALS: O2SAT 96; BMI 24.4
[2017-11-12] MEDS ORDERED: MoRPHine SULFATE 4 MG/ML 1 ML CARP\\VIAL IV STA (13:47)
[2017-11-12] MEDS ORDERED: POLYETHYLENE (MIRALAX) 17 GM PACK PO PRN (14:00)
[2017-11-12] MEDS ORDERED: ACETAMINOPHEN 325 MG TAB PO PRN (14:00)
[2017-11-12] MEDS ORDERED: ALUMINUM/MAGNESIUM/SIMETH (MAALOX MAX) 30 ML UDC PO PRN (14:00)
[2017-11-12] MEDS ORDERED: MAGNESIUM HYDROXIDE SUSP 30 ML UDC PO PRN (14:00)
[2017-11-12] MEDS ORDERED: ONDANSETRON INJ 2 MG/ML 2 ML VIAL IV PRN (14:00)
--- NOTE | 2017-11-12 14:21 | History and Physical ---
History & Physical Date & Time of Service: Nov 12, 2017 at 14:08 Chief Complaint: Trouble Swallowing, Chills, Sweats Primary Care Physician: Gregory Smith D.O. History of Present Illness Source: patient, family ( at beside ), clinic records, hospital records Patient is a pleasant 57 y/o male, with PMHx of multiple myeloma, CAD s/p cardiac stenting, HLD, PAD, and anxiety, who presented to the ED because of difficulty swallowing and sore throat x1 week. Patient was recently diagnosed with multiple myeloma- he follows w/ Dr. Smith. He received his first round of radiation 1 week ago. Since that time, he has been having trouble swallowing and extremely sore throat. This AM he was only able to swallow his medications. He has been eating/drinking very little. He was seen at the cancer yesterday yesterday due to fevers. He was placed on Ciprofloxacin BID for PNA. CXR today shows slight improvement. Per , last low-grade fevers was last evening around 1700. +chills. Patient denies any fever, sweats, lightheadedness, dizziness, vision changes, CP, palpitations, edema, SOB, wheezing, cough, abdominal pain, nausea, vomiting, diarrhea, urinary symptoms, melena, numbness/ tingling, weakness, muscle/joint pain, anxiety/depression, active bleeding, or new skin discoloration/changes. Past Medical/Surgical History Medical Problems: multiple myeloma pancytopenia CAD s/p cardiac stenting HLD anxiety PAD s/p aortobifemoral bypass s/p back surgery x2 Family History Cancer Social History Smoking Status: Former Smoker Drug Use: none Marital Status: Housing status: lives with family Occupational Status: employed Immunizations History of Influenza Vaccine: Unknown History of Tetanus Vaccine?: Unknown History of Pneumococcal: Unknown History of Hepatitis B Vaccine: Unknown Allergies Coded Allergies: Atorvastatin (Verified Adverse Reaction, Unknown, myalgias, 10/16/17) Simvastatin (Verified Adverse Reaction, Unknown, myalgias, 10/16/17) Home Medications Scheduled Aspirin (Aspirin Ec), 81 MG PO DAILY Bortezomib (Velcade), 1 APPLN SQ WK Cholecalciferol (Vitamin D3), 1 TAB PO DAILY Ciprofloxacin Hcl (Cipro), 500 MG PO Q12 Dexamethasone (Decadron), 5 TAB PO DIRECTED Duloxetine HCl (Cymbalta), 30 MG PO DAILY Fentanyl (Duragesic), 50 MCG TD CQ72HR Gabapentin (Neurontin), 100 MG PO TID Garlic (Garlic), 1,000 MG PO QAM Lenalidomide (Revlimid), 25 MG PO DAILY Lidocaine (Lidocaine), 1 PATCH TD DIRECTED [place]-3 Fatty Acids (Fish Oil), 1 CAP PO QAM Pravastatin Sodium (Pravachol), 80 MG PO DAILY Sennosides-Docusate Sodium (Docusate Sodium/Senna), 1 TAB PO BID Scheduled PRN Oxycodone Hcl (Oxycodone Hcl), 10 MG PO Q4H PRN for Pain Physical Exam Vital Signs Date Time Temp Pulse Resp B/P (MAP) Pulse Ox O2 Delivery O2 Flow Rate FiO2 11/12/17 13:52 93 18 87/51 98 Room Air 11/12/17 13:04 95 11/12/17 12:29 96 Room Air 11/12/17 12:20 92 19 106/69 96 Room Air 11/12/17 10:51 110 15 117/73 98 Room Air 11/12/17 10:11 94 Room Air 11/12/17 10:04 113 11/12/17 09:45 36.7 120 18 123/73 97 Room Air General Appearance: no apparent distress Head: normocephalic, atraumatic Eyes: normal inspection, PERRL ENT: hearing grossly normal, pharynx normal Neck: supple, no adenopathy, no JVD Respiratory/Chest: lungs clear, no respiratory distress, no accessory muscle use Cardiovascular: + tachycardia (regular rhythm) Abdomen/GI: normal bowel sounds, non tender, soft Back: normal inspection Extremities/Musculoskelatal: no calf tenderness, no pedal edema Neurologic/Psych: alert, normal mood/affect, oriented x 3 Skin: normal color, warm/dry, no rash Diagnostics Laboratory Results Results Past 24 Hours Test 11/12/17 11:00 11/12/17 11:01 11/12/17 11:05 Range/Units White Blood Count 2.60 4.8-10.8 K/uL Red Blood Count 3.05 4.7-6.1 M/uL Hemoglobin 9.7 14.0-18.0 g/dL Hematocrit 28.0 42-52 % Mean Corpuscular Volume 91.8 80-100 fL Mean Corpuscular Hemoglobin 31.8 25-34 pg Mean Corpuscular Hemoglobin Concent 34.6 32-36 g/dl Platelet Count 83 130-400 K/uL Mean Platelet Volume 10.3 7.4-10.4 fL Neutrophils (%) (Auto) 67.7 % Lymphocytes (%) (Auto) 12.7 % Monocytes (%) (Auto) 18.8 % Eosinophils (%) (Auto) 0.0 % Basophils (%) (Auto) 0.4 % Neutrophils # (Auto) 1.76 1.4-6.5 K/uL Lymphocytes # (Auto) 0.33 1.2-3.4 K/uL Monocytes # (Auto) 0.49 0.11-0.59 K/uL Eosinophils # (Auto) 0.00 0-0.5 K/uL Basophils # (Auto) 0.01 0-0.2 K/uL RDW Standard Deviation 62.3 36.4-46.3 fL RDW Coefficient of Variation 18.7 11.5-14.5 % Immature Granulocyte % (Auto) 0.4 % Immature Granulocyte # (Auto) 0.01 0.00-0.02 K/uL Dohle Bodies 1+ Large Platelets 1+ Anisocytosis PRESENT Tear Drop Cells 1+ Prothrombin Time 11.8 9.0-12.0 SECONDS Prothromb Time International Ratio 1.1 0.9-1.1 Sodium Level 136 136-145 mmol/L Potassium Level 3.8 3.5-5.1 mmol/L Chloride Level 104 98-107 mmol/L Carbon Dioxide Level 22 21-32 mmol/L Anion Gap 10.0 16.0 16-25 mmol/L Blood Urea Nitrogen 23 7-18 mg/dl Creatinine 0.99 0.60-1.40 mg/dl Est Creatinine Clear Calc Drug Dose 80.4 ml/min Estimated GFR () 96.2 Estimated GFR (Non- 83.0 BUN/Creatinine Ratio 23.0 10-20 Random Glucose 135 70-99 mg/dl Calcium Level 8.3 8.5-10.1 mg/dl Magnesium Level 2.2 1.8-2.4 mg/dl Total Bilirubin 0.3 0.2-1 mg/dl Direct Bilirubin < 0.1 0-0.2 mg/dl Aspartate Amino Transf (AST/SGOT) 16 15-37 U/L Alanine Aminotransferase (ALT/SGPT) 26 12-78 U/L Alkaline Phosphatase 133 45-117 U/L Total Creatine Kinase 22 39-308 U/L Creatine Kinase MB 0.8 0.5-3.6 ng/ml Creatine Kinase MB Ratio 3.6 0-3.0 Troponin I < 0.015 0-0.045 ng/ml Total Protein 8.1 6.4-8.2 gm/dl Albumin 2.3 3.4-5.0 gm/dl Bedside Lactic Acid Venous 1.63 0.90-1.70 mmol/L Bedside Hemoglobin 9.2 14.0-18.0 g/dl Bedside Hematocrit 27 42-52 % Bedside Sodium 139 135-144 mEq/L Bedside Potassium 3.9 3.3-5.0 mEq/L Bedside Chloride 105 101-112 mEq/L Bedside Total CO2 23 24-31 mEq/l Bedside Blood Urea Nitrogen 22 7-18 mg/dl Bedside Creatinine 0.7 0.6-1.3 mg/dl Bedside Glucose (other) 144 70-99 mg/dl Bedside Ionized Calcium (Cesar) 1.12 1.12-1.32 mmol/l Microbiology Results 11/12/17 Blood Culture, Received Pending 11/12/17 Blood Culture, Received Pending Diagnostic Radiology CHEST ONE VIEW PORTABLE HISTORY: fever COMPARISON: Chest 11/11/2017. FINDINGS: Slight improvement in the left infrahilar/lingular airspace opacity. The right lung remains clear. Emphysema. Posterior fusion within the mid thoracic spine. The heart is normal in size. No pleural effusions. No pneumothorax. IMPRESSION: Slight improvement in the left infrahilar/lingula airspace opacity. This likely represents a pneumonia. One month chest x-ray follow up is recommended to ensure resolution. Electronically signed by: Rahul Garcia M.D. 11/12/2017 10:56 AM Dictated Date/Time: 11/12/2017 10:55 AM The status of this report is Signed. Draft = Not yet reviewed or approved by Radiologist. Signed = Reviewed and approved by Radiologist. EKG KAITLIN BUI ID:[id number] 12-NOV-2017 10:50:07 [facility] Sinus tachycardia Otherwise normal ECG When compared with ECG of 18-OCT-2017 12:16, Premature ventricular complexes are no longer Present Confirmed by GENESIS MCCOY ([id number]) on 11/12/2017 1:39:37 PM 25mm/s 10mm/mV 150Hz 8.0 SP2 12SL 241 RAPHAEL: 0 Referred by: Monica Eastman Confirmed By: GENESIS Polk. rate 116 BPM TN interval 116 ms QRS duration 104 ms QT/QTc 346/480 ms P-R-T axes 48 34 58 1960 (57 yr) Male Room:6 Loc:15 [employer] Paralegal:Anurag Palacios Test ind: Impression Assessment and Plan Patient is a pleasant 57 y/o male, with PMHx of multiple myeloma, CAD s/p cardiac stenting, HLD, PAD, and anxiety, who presented to the ED because of difficulty swallowing and sore throat x1 week. Radiation esophagitis: - Admit to med/surg - IV Protonix BID - Magic mouth wash QID and viscous Lidocaine q3 hrs PRN - Consult GI, appreciate recommendations -- Discussed w/ Jennifer- keep NPO after midnight for EGD tomorrow PNA: - Switch Cipro PO to IV Levaquin while inpatient to ensure receives antibiotics w/ difficulty swallowing and NPO after midnight -- Start abx on 11/11 Multiple myeloma, pancytopenia, chronic pain- follows w/ Dr. Smith: - Continue pain management with Oxycodone PRN, Lidocaine patch, Fentanyl patch, Gabapentin - Continue Decadron and Velcade on Tuesdays - Completed 14 days of Revlimid yesterday- now doing 7 days off medication CAD s/p cardiac stenting, HLD, PAD: Continue ASA, Pravastatin Anxiety: Continue Cymbalta DVT prophylaxis: TEDs/SCDs, ambulation; hold chemical anticoagulation due to pancytopenia Code status: LEVEL I, FULL Dispo: From home, lives w/ - CM consulted Advanced Directives Existing Living Will: No Existing Power of Sr. Logistics Analyst: No Resuscitation Status LEVEL I, FULL VTE Prophylaxis Will order VTE Prophylaxis: Yes History Patient seen and examined, chart reviewed, case discussed with MALLORIE Rios and I agree with her assessment and plan as documented above. Briefly, patient is a 57yo C male with multiple myeloma on chemo and radiation therapy. He presents today with fever and painful swallowing. He has a known PNA for which he was being treated with Ciprofloxacin as an outpatient. He is presently complaining of mouth and throat pain as well as some fatigue and sweats. No additional complaints. On exam he is afebrile, HR=93, low blood pressure at 87/51, patient sleeping, RR =11, 98% on room air General: ill appearing male, NAD HEENT: dry mucus membranes with small amount of white plaque on tongue, no ulcers/lesions Heart: +S1/S2, regular, no m/r/g Lungs: CTA Abd: benign Laboratory studies and images reviewed, significant for pancytopenia, WBC=2.6, no neutropenia, Hg=9.7, Hct=28 and Plt=83. CXR with resolving PNA Assessment: 57yo C male with MM on chemo/XRT therapy presenting with fever, painful swallowing and known PNA on antibiotic therapy with clinical improvement 1. Odynophagia - concern for radiation esophagitis vs infectious esophagitis ( santino, CMV). Patient also with history of GERD -Keep NPO, symptomatic relief with viscous lidocaine and magic mouthwash -GI consultation, EGD in AM 2. Pancytopenia - most likely secondary to chemotherapy -continue to monitor Remainder of medical plan per PA note
--- NOTE | 2017-11-12 14:39 | EMERGENCY ROOM VISIT NOTE ---
History Report prepared by Juan Luis: Joel Marinelli Under the Supervision of: Dr. Anurag Fritz D.O. First contact with patient: 10:13 Chief Complaint: ILLNESS Stated Complaint: TROUBLE SWALLOWING, CHILLS, SWEATS History of Present Illness The patient is a 57 year old male who presents to the Emergency Room with complaints of constant throat and chest pain beginning this morning. He has a history of multiple myeloma. His most recent chemotherapy treatment was yesterday The patient's pain is worsened with eating and drinking. He has been able to swallow fluids and saliva without vomiting. He feels that he has been having intermittent episodes of choking as well. He also complains of right ear pain (began hurting after coughing episode from choking), nausea, chills, and diaphoresis. The patient had a fever of 102 degrees yesterday. He was started on an antibiotic recently for possible pneumonia. Pt denies headache, cough, shortness of breath, vomiting, diarrhea, pain with urination, and melena. His last normal bowel movement was yesterday. Source of History: patient Onset: This morning Position: throat, chest Timing: constant Modifying Factors (Worsening): eating, drinking Associated Symptoms: + fevers (102 degrees, yesterday), + chills, + diaphoresis, + nausea, No headache, No SOB, No vomiting, No abdominal pain, No melena, No diarrhea, No urinary symptoms Note: Positive: right ear pain. Negative: cough. Review of Systems See HPI for pertinent positives & negatives. A total of 10 systems reviewed and were otherwise negative. Past Medical & Surgical Medical Problems: (1) Acute diverticulitis (2) Acute kidney injury (3) COPD (chronic obstructive pulmonary disease) with emphysema (4) Hypertension (5) Multiple myeloma (6) Peripheral arterial disease (7) Radiation esophagitis (8) Recent spinal surgery (9) Sepsis (10) Septic shock (11) Tobacco abuse Family History Cancer Social History Smoking Status: Former Smoker Drug Use: none Marital Status: Housing Status: lives with family Occupation Status: employed Current/Historical Medications Scheduled Aspirin (Aspirin Ec), 81 MG PO DAILY Bortezomib (Velcade), 1 APPLN SQ WK Cholecalciferol (Vitamin D3), 1 TAB PO DAILY Ciprofloxacin Hcl (Cipro), 500 MG PO Q12 Dexamethasone (Decadron), 5 TAB PO DIRECTED Duloxetine HCl (Cymbalta), 30 MG PO DAILY Fentanyl (Duragesic), 50 MCG TD CQ72HR Gabapentin (Neurontin), 100 MG PO TID Garlic (Garlic), 1,000 MG PO QAM Lenalidomide (Revlimid), 25 MG PO DAILY Lidocaine (Lidocaine), 1 PATCH TD DIRECTED [place]-3 Fatty Acids (Fish Oil), 1 CAP PO QAM Pravastatin Sodium (Pravachol), 80 MG PO DAILY Sennosides-Docusate Sodium (Docusate Sodium/Senna), 1 TAB PO BID Scheduled PRN Oxycodone Hcl (Oxycodone Hcl), 10 MG PO Q4H PRN for Pain Allergies Coded Allergies: Atorvastatin (Verified Adverse Reaction, Unknown, myalgias, 10/16/17) Simvastatin (Verified Adverse Reaction, Unknown, myalgias, 10/16/17) Physical Exam Vital Signs Date Time Temp Pulse Resp B/P (MAP) Pulse Ox O2 Delivery O2 Flow Rate FiO2 11/12/17 13:52 93 18 87/51 98 Room Air 11/12/17 13:04 95 11/12/17 12:29 96 Room Air 11/12/17 12:20 92 19 106/69 96 Room Air 11/12/17 10:51 110 15 117/73 98 Room Air 11/12/17 10:11 94 Room Air 11/12/17 10:04 113 11/12/17 09:45 36.7 120 18 123/73 97 Room Air Physical Exam GENERAL: Sitting up in bed, alert, ill-appearing, disheveled. EYE EXAM: normal conjunctiva. OROPHARYNX: no exudate, no erythema, lips, buccal mucosa, and tongue normal and mucous membranes are moist NECK: supple, no nuchal rigidity, no adenopathy, non-tender LUNGS: course at the bases. HEART: Tachycardic. No murmurs, S1 normal and S2 normal ABDOMEN: abdomen soft, non-tender, normo-active bowel sounds, no masses, no rebound or guarding. BACK: Back is symmetrical on inspection and there is no deformity, no midline tenderness, no CVA tenderness. SKIN: no rashes and no bruising UPPER EXTREMITIES: upper extremities are grossly normal. LOWER EXTREMITIES: No pitting edema. NEURO EXAM: Normal sensorium, cranial nerves II-XII grossly intact, normal speech, no gross weakness of arms, no gross weakness of legs. Medical Decision & Procedures ER Provider Diagnostic Interpretation: Radiology results as stated below per my review and the radiologist's interpretation: CHEST ONE VIEW PORTABLE FINDINGS: Slight improvement in the left infrahilar/lingular airspace opacity. The right lung remains clear. Emphysema. Posterior fusion within the mid thoracic spine. The heart is normal in size. No pleural effusions. No pneumothorax. IMPRESSION: Slight improvement in the left infrahilar/lingula airspace opacity. This likely represents a pneumonia. One month chest x-ray follow up is recommended to ensure resolution. Electronically signed by: Rahul Garcia M.D. 11/12/2017 10:56 AM Laboratory Results 11/12/17 11:00 Red Blood Count 3.05, Mean Corpuscular Volume 91.8, Mean Corpuscular Hemoglobin 31.8, Mean Corpuscular Hemoglobin Concent 34.6, Mean Platelet Volume 10.3, Neutrophils (%) (Auto) 67.7, Lymphocytes (%) (Auto) 12.7, Monocytes (%) (Auto) 18.8, Eosinophils (%) (Auto) 0.0, Basophils (%) (Auto) 0.4, Neutrophils # (Auto ) 1.76, Lymphocytes # (Auto) 0.33, Monocytes # (Auto) 0.49, Eosinophils # (Auto ) 0.00, Basophils # (Auto) 0.01 11/12/17 11:00 Test 11/12/17 11:00 11/12/17 11:01 11/12/17 11:05 White Blood Count 2.60 K/uL (4.8-10.8) Red Blood Count 3.05 M/uL (4.7-6.1) Hemoglobin 9.7 g/dL (14.0-18.0) Hematocrit 28.0 % (42-52) Mean Corpuscular Volume 91.8 fL (80-100) Mean Corpuscular Hemoglobin 31.8 pg (25-34) Mean Corpuscular Hemoglobin Concent 34.6 g/dl (32-36) Platelet Count 83 K/uL (130-400) Mean Platelet Volume 10.3 fL (7.4-10.4) Neutrophils (%) (Auto) 67.7 % Lymphocytes (%) (Auto) 12.7 % Monocytes (%) (Auto) 18.8 % Eosinophils (%) (Auto) 0.0 % Basophils (%) (Auto) 0.4 % Neutrophils # (Auto) 1.76 K/uL (1.4-6.5) Lymphocytes # (Auto) 0.33 K/uL (1.2-3.4) Monocytes # (Auto) 0.49 K/uL (0.11-0.59) Eosinophils # (Auto) 0.00 K/uL (0-0.5) Basophils # (Auto) 0.01 K/uL (0-0.2) RDW Standard Deviation 62.3 fL (36.4-46.3) RDW Coefficient of Variation 18.7 % (11.5-14.5) Immature Granulocyte % (Auto) 0.4 % Immature Granulocyte # (Auto) 0.01 K/uL (0.00-0.02) Dohle Bodies 1+ Large Platelets 1+ Anisocytosis PRESENT Tear Drop Cells 1+ Prothrombin Time 11.8 SECONDS (9.0-12.0) Prothromb Time International Ratio 1.1 (0.9-1.1) Est Creatinine Clear Calc Drug Dose 80.4 ml/min Estimated GFR () 96.2 Estimated GFR (Non- 83.0 BUN/Creatinine Ratio 23.0 (10-20) Calcium Level 8.3 mg/dl (8.5-10.1) Magnesium Level 2.2 mg/dl (1.8-2.4) Total Bilirubin 0.3 mg/dl (0.2-1) Direct Bilirubin < 0.1 mg/dl (0-0.2) Aspartate Amino Transf (AST/SGOT) 16 U/L (15-37) Alanine Aminotransferase (ALT/SGPT) 26 U/L (12-78) Alkaline Phosphatase 133 U/L (45-117) Total Creatine Kinase 22 U/L (39-308) Creatine Kinase MB 0.8 ng/ml (0.5-3.6) Creatine Kinase MB Ratio 3.6 (0-3.0) Troponin I < 0.015 ng/ml (0-0.045) Total Protein 8.1 gm/dl (6.4-8.2) Albumin 2.3 gm/dl (3.4-5.0) Bedside Lactic Acid Venous 1.63 mmol/L (0.90-1.70) Bedside Hemoglobin 9.2 g/dl (14.0-18.0) Bedside Hematocrit 27 % (42-52) Bedside Sodium 139 mEq/L (135-144) Bedside Potassium 3.9 mEq/L (3.3-5.0) Bedside Chloride 105 mEq/L (101-112) Bedside Total CO2 23 mEq/l (24-31) Anion Gap 16.0 mmol/L (16-25) Bedside Blood Urea Nitrogen 22 mg/dl (7-18) Bedside Creatinine 0.7 mg/dl (0.6-1.3) Bedside Glucose (other) 144 mg/dl (70-99) Bedside Ionized Calcium (Cesar) 1.12 mmol/l (1.12-1.32) Laboratory results per my review. Medications Administered Medications (Trade) Dose Ordered Sig/Malik Route Start Time Stop Time Status Last Admin Dose Admin Sodium Chloride 1,000 ml @ 999 mls/hr Q1H1M STAT IV 11/12/17 10:29 11/12/17 11:29 DC 11/12/17 11:24 999 MLS/HR Levofloxacin (Levaquin / D5W) 750 mg NOW STAT IV 11/12/17 11:59 11/12/17 12:00 DC 11/12/17 12:16 750 MG Morphine Sulfate (MoRPHine SULFATE INJ) 4 mg NOW STAT IV 11/12/17 13:47 11/12/17 13:48 DC 11/12/17 13:54 4 MG ECG Per My Interpretation Indication: chest pain Rate (beats per minute): 116 Rhythm: sinus tachycardia Findings: no ectopy, other (Normal axis. ) ED Course ED COURSE: Vital signs were reviewed and showed tachycardia. The patients medical record was reviewed The above diagnostic studies were performed and reviewed. ED treatments and interventions as stated above. 1020: The patient was evaluated in room B6. A complete history and physical examination was performed. 1029: Ordered Sodium Chloride 1000 ml @ 999 mls/hr IV. 1129: Ordered Levaquin / D5W 750 mg IV. 1206: Upon reevaluation, the patient is resting. I discussed my findings with the patient and he understands and agrees with the treatment plan. Based on the patients age, coexisting illnesses, exam and lab findings the decision to treat as an inpatient was made. The patient remained stable while under my care. The patient will be evaluated for further management. Medical Decision Differential Diagnosis includes but is not limited to dehydration, stroke, anemia, hypoglycemia, hyponatremia, hypernatremia, urinary tract infection, pneumonia, bronchitis, sepsis, gastroenteritis, additional abdominal pathology, metabolic abnormalities and infections. Patient is a 57-year-old male who presents to ER for diffuse weakness associated with difficulty swallowing. Patient received chemotherapy on Friday. CBC shows a mild anemia with a leukopenia. No neutropenia. BMP along with LFTs, bilirubin and troponin was unremarkable. Chest x-ray does show a pneumonia. Patient was tachycardic and did drop his pressures while in the ER. He was given fluids and Levaquin. Patient family were updated at bedside. He was admitted to internal medicine for pneumonia along with sepsis and difficulty swallowing. Medication Reconcilliation Current Medication List: was personally reviewed by me Blood Pressure Screening Patient's blood pressure: Normal blood pressure Blood pressure disposition: Did not require urgent referral Consults Time Called: 1205 Consulting Physician: Dr. Aftab PRITCHETT Hospitalist Returned Call: [phone] I reviewed the patient's case with Dr. Ugalde. YARELY will evaluate the patient for further management. Impression Primary Impression: Pneumonia Additional Impression: Difficulty swallowing Scribe Attestation The scribe's documentation has been prepared under my direction and personally reviewed by me in its entirety. I confirm that the note above accurately reflects all work, treatment, procedures, and medical decision making performed by me. Departure Information Dispostion Being Evaluated By Hospitalist Referrals Valeria Lackey C.R.N.P. (PCP) Patient Instructions My [facility] Problem Qualifiers Primary Impression: Pneumonia Pneumonia type: due to unspecified organism Laterality: unspecified laterality Lung location: unspecified part of lung Qualified Codes: J18.9 - Pneumonia, unspecified organism Additional Impression: Difficulty swallowing Dysphagia type: unspecified Qualified Codes: R13.10 - Dysphagia, unspecified
[2017-11-12] MEDS ORDERED: IV FLUIDS COMPLETED PRN (14:45)
[2017-11-12] MEDS ORDERED: SODIUM CHLORIDE 0.9% 500ML 500 ML IV ONE (15:15)
[2017-11-12 15:51] VITALS: BP 100/64; PULSE 84; TEMP 36.4; O2SAT 97
[2017-11-12] MEDS: SODIUM CHLORIDE 0.9% 1000ML 1,000 ML IV SCH ×2 (16:11→22:05)
[2017-11-12] MEDS: CHECK FENTANYL PATCH PLACEMENT SCH ×2 (16:12→23:32)
[2017-11-12] MEDS: GABAPENTIN 100 MG CAP PO SCH ×2 (16:41→20:00)
[2017-11-12] MEDS: PANTOprazole INJ 40 MG in SYRINGE 0 ML IV SCH ×2 (16:50→21:03)
[2017-11-12] MEDS: DEXAMETHASONE CONC SOLN 3.75 MG, NYSTATIN SUSP 30 ML, DiphenhydrAMINE HCL SYRUP 300 MG,... PO SCH ×10 (16:51→21:05)
[2017-11-12] MEDS ORDERED: MAGIC MOUTHWASH PO SCH (17:00)
[2017-11-12 19:20] VITALS: BP 107/71; PULSE 85; TEMP 36.7; O2SAT 98
[2017-11-12] MEDS: LIDOCAINE HCL 2% VISC SOLN 20 ML UDC MT PRN (19:51)
[2017-11-12] MEDS: DOCUSATE SODIUM/SENNA 50/8.6MG TAB PO SCH (20:00)
[2017-11-12 23:05] VITALS: BP 104/67; PULSE 85; TEMP 36.6; O2SAT 95
[2017-11-13] MEDS ORDERED: MoRPHine SULFATE 4 MG/ML 1 ML CARP\\VIAL IV STA (01:37)
[2017-11-13 04:20] VITALS: BP 96/63; PULSE 76; TEMP 36.6; O2SAT 96
[2017-11-13 06:10] LABS: HEMATOCRIT 22.2 % (42-52); HEMOGLOBIN 7.4 g/dL (14.0-18.0); MEAN CELL VOLUME 93.7 fL (80-100); MEAN CORPUSCULAR HEMOGLOBIN 31.2 pg (25-34); MEAN CORPUSCULAR HGB CONC 33.3 g/dl (32-36); MEAN PLATELET VOLUME 9.5 fL (7.4-10.4); PLATELET COUNT 65 K/uL (130-400); RED CELL DISTRIBUTION WIDTH CV 19.3 % (11.5-14.5); RED CELL DISTRIBUTION WIDTH SD 65.6 fL (36.4-46.3); WHITE BLOOD COUNT 1.67 K/uL (4.8-10.8)
[2017-11-13 06:30] LABS: CALCIUM 7.6 mg/dl (8.5-10.1); CREATININE 0.75 mg/dl (0.60-1.40); POTASSIUM 3.6 mmol/L (3.5-5.1)
[2017-11-13 06:34] LABS: EOS % 1.8 %; EOS ABS # 0.03 K/uL (0-0.5); IG# 0.01 K/uL (0.00-0.02); LYMPH % 20.4 %; LYMPH ABS # 0.34 K/uL (1.2-3.4); MONO % 16.2 %; MONO ABS # 0.27 K/uL (0.11-0.59); NEUT ABS # 1.02 K/uL (1.4-6.5)
[2017-11-13 07:01] VITALS: BMI 23.9
[2017-11-13 07:23] VITALS: BP 107/70; PULSE 70; TEMP 36.7; O2SAT 95
[2017-11-13] MEDS: DEXAMETHASONE CONC SOLN 3.75 MG, NYSTATIN SUSP 30 ML, DiphenhydrAMINE HCL SYRUP 300 MG,... PO SCH ×20 (08:00→20:10)
[2017-11-13] MEDS: HYDROmorphone INJ 2 MG/ML SYR/VIAL IV PRN ×5 (08:28→23:44)
[2017-11-13] MEDS: PANTOprazole INJ 40 MG in SYRINGE 0 ML IV SCH ×2 (08:28→20:12)
[2017-11-13] MEDS: LIDODERM (LIDOCAINE) PATCH 5% TD SCH (08:29)
[2017-11-13] MEDS: CHECK FENTANYL PATCH PLACEMENT SCH ×3 (08:30→23:44)
[2017-11-13] MEDS: DOCUSATE SODIUM/SENNA 50/8.6MG TAB PO SCH ×2 (08:46→20:10)
[2017-11-13] MEDS: FENTANYL 50 MCG/HR TDSY TD SCH (08:46)
[2017-11-13] MEDS: SODIUM CHLORIDE 0.9% 1000ML 1,000 ML IV SCH ×2 (08:46→20:10)
[2017-11-13] MEDS: GABAPENTIN 100 MG CAP PO SCH ×3 (08:46→20:11)
[2017-11-13] MEDS: PRAVASTATIN SOD 40 MG TAB PO SCH (08:46)
[2017-11-13] MEDS: DULOXETINE (CYMBALTA) 30 MG CAP PO SCH (08:47)
[2017-11-13] MEDS: ASPIRIN 81 MG ECTAB PO SCH (08:47)
[2017-11-13] MEDS: FENTANYL PATCH REMOVE & WASTE SCH (08:48)
--- NOTE | 2017-11-13 10:29 | Gastrointestinal Consultation ---
Gastrointestinal Consultation Date of Consultation: Nov 13, 2017 Attending Physician: Aftab Consulting Physician: Gavin Reason for Consultation: odynophagia History of Present Illness Patient is a 57 year old male w/ history of MM s/p chemotherapy and radiation t herapy w/ others listed below. Pt was seen and evaluated, chart reviewed. Pt tells me he has completed radiation therapy, 10 rounds. Noted he started having painful and difficulty swallowing around week 5 of radiation therapy. Notes anytime he swallows, it is terrible painful. Also explained dysphagia, sensation of both food and liquid sticking and filling up his esophagus. Notes because of this, he has restricted his diet. He does have upper abdominal pain, constant, burning. Worse with PO intake. No nausea, vomiting. Moving bowels ok. Denies black or bloody stools. Has had intermittent chills. Today, denies fever , chills, CP, SOB. Past Medical/Surgical History Medical Problems: (1) Dehydration Status: Acute (2) Dehydration Status: Acute (3) Difficulty swallowing Status: Acute (4) Pneumonia Status: Acute (5) Rib pain on right side Status: Acute Past Medical History: MM, CAD, dyslipidemia, PAD, anxiety, depression Past Surgical History: unspecified back surgery Family History Cancer Social History Smoking Status: Former Smoker Drug Use: none Marital Status: Housing Status: lives with family Occupation Status: employed Allergies Coded Allergies: Atorvastatin (Verified Adverse Reaction, Unknown, myalgias, 10/16/17) Simvastatin (Verified Adverse Reaction, Unknown, myalgias, 10/16/17) Current Medications Home Meds and Scripts Medications Dose Route/Sig Max Daily Dose Days Date Category Dose Instructions Decadron (Dexamethasone) 4 Mg Tab 5 Tab PO DIRECTED 11/12/17 Reported TAKES ON TUESDAYS BEFORE CHEMO Duragesic (Fentanyl) 50 Mcg Tdsy 50 Mcg TD [id number] 11/12/17 Reported Lidocaine 1 Patch Tdsy 1 Patch TD DIRECTED 11/12/17 Reported 12 HOURS ON12 HOURS OFF Oxycodone Hcl 10 Mg Tab 10 Mg PO Q4H PRN 11/12/17 Reported Cymbalta (Duloxetine HCl) 30 Mg Cap 30 Mg PO DAILY 11/12/17 Reported Neurontin (Gabapentin) 100 Mg Cap 100 Mg PO TID 11/12/17 Reported Cipro (Ciprofloxacin Hcl) 500 Mg Tab 500 Mg PO Q12 11/12/17 Reported STARTED 11-11-17 Velcade (Bortezomib) 1 Mg/Ml Inj 1 Appln SQ WK 11/03/17 Reported Revlimid (Lenalidomide) 20 Mg Cap 25 Mg PO DAILY 11/03/17 Reported 14 DAYS ON 7 DAYS OFF Vitamin D3 (Cholecalciferol) 1,000 Unit Tab 1 Tab PO DAILY 10/16/17 Reported Pravachol (Pravastatin Sodium) 80 Mg Tab 80 Mg PO DAILY 10/16/17 Reported Docusate Sodium/Senna (Sennosides-Docusate Sodium) 1 Tab Tab 1 Tab PO BID 09/27/17 Reported Garlic 500 Mg Cap 1,000 Mg PO QAM 08/30/17 Reported Fish Oil ([place]-3 Fatty Acids) 1 Cap Cap 1 Cap PO QAM 08/30/17 Reported Aspirin Ec (Aspirin) 81 Mg Tab 81 Mg PO DAILY 08/30/17 Reported Review of Systems Constitutional: + chills, + fatigue, No fever ENT: + sore throat, + trouble swallowing, + pain on swallowing Respiratory: No cough, No shortness of breath Cardiac: No chest pain, No edema Abdomen: + pain, + dysphagia, + odynophagia, No nausea, No vomiting, No diarrhea, No constipation, No GI bleeding Skin: No rash, No itch, No color change, No jaundice Physical Exam Date Time Temp Pulse Resp B/P (MAP) Pulse Ox O2 Delivery O2 Flow Rate FiO2 11/13/17 07:23 36.7 70 18 107/70 (82) 95 Room Air 11/13/17 04:20 36.6 76 18 96/63 (74) 96 Room Air 11/13/17 00:00 Room Air 11/12/17 23:05 36.6 85 18 104/67 (79) 95 Room Air 11/12/17 19:20 36.7 85 18 107/71 (83) 98 Room Air 11/12/17 16:00 Room Air 11/12/17 15:51 36.4 84 20 100/64 (76) 97 Room Air 11/12/17 14:46 85 18 93/58 93 Room Air 11/12/17 13:52 93 18 87/51 98 Room Air 11/12/17 13:04 95 11/12/17 12:29 96 Room Air 11/12/17 12:20 92 19 106/69 96 Room Air 11/12/17 10:51 110 15 117/73 98 Room Air General Appearance: no apparent distress Eyes: PERRL ENT: hearing grossly normal Neck: supple, trachea midline Respiratory/Chest: lungs clear, normal breath sounds Cardiovascular: regular rate, rhythm, no edema, no gallop, no JVD Abdomen: normal bowel sounds, non tender, soft, no organomegaly, no pulsatile mass Neurologic/Psych: alert, normal mood/affect, oriented x 3 Skin: normal color, no jaundice, warm/dry Laboratory Results Last 24 Hours Test 11/12/17 11:00 11/12/17 11:01 11/12/17 11:05 11/13/17 01:10 White Blood Count 2.60 K/uL Red Blood Count 3.05 M/uL Hemoglobin 9.7 g/dL Hematocrit 28.0 % Mean Corpuscular Volume 91.8 fL Mean Corpuscular Hemoglobin 31.8 pg Mean Corpuscular Hemoglobin Concent 34.6 g/dl Platelet Count 83 K/uL Mean Platelet Volume 10.3 fL Neutrophils (%) (Auto) 67.7 % Lymphocytes (%) (Auto) 12.7 % Monocytes (%) (Auto) 18.8 % Eosinophils (%) (Auto) 0.0 % Basophils (%) (Auto) 0.4 % Neutrophils # (Auto) 1.76 K/uL Lymphocytes # (Auto) 0.33 K/uL Monocytes # (Auto) 0.49 K/uL Eosinophils # (Auto) 0.00 K/uL Basophils # (Auto) 0.01 K/uL RDW Standard Deviation 62.3 fL RDW Coefficient of Variation 18.7 % Immature Granulocyte % (Auto) 0.4 % Immature Granulocyte # (Auto) 0.01 K/uL Dohle Bodies 1+ Large Platelets 1+ Anisocytosis PRESENT Tear Drop Cells 1+ Prothrombin Time 11.8 SECONDS Prothromb Time International Ratio 1.1 Sodium Level 136 mmol/L Potassium Level 3.8 mmol/L Chloride Level 104 mmol/L Carbon Dioxide Level 22 mmol/L Anion Gap 10.0 mmol/L 16.0 mmol/L Blood Urea Nitrogen 23 mg/dl Creatinine 0.99 mg/dl Est Creatinine Clear Calc Drug Dose 80.4 ml/min Estimated GFR () 96.2 Estimated GFR (Non- 83.0 BUN/Creatinine Ratio 23.0 Random Glucose 135 mg/dl Calcium Level 8.3 mg/dl Magnesium Level 2.2 mg/dl Total Bilirubin 0.3 mg/dl Direct Bilirubin < 0.1 mg/dl Aspartate Amino Transf (AST/SGOT) 16 U/L Alanine Aminotransferase (ALT/SGPT) 26 U/L Alkaline Phosphatase 133 U/L Total Creatine Kinase 22 U/L Creatine Kinase MB 0.8 ng/ml Creatine Kinase MB Ratio 3.6 Troponin I < 0.015 ng/ml Total Protein 8.1 gm/dl Albumin 2.3 gm/dl Bedside Lactic Acid Venous 1.63 mmol/L Bedside Hemoglobin 9.2 g/dl Bedside Hematocrit 27 % Bedside Sodium 139 mEq/L Bedside Potassium 3.9 mEq/L Bedside Chloride 105 mEq/L Bedside Total CO2 23 mEq/l Bedside Blood Urea Nitrogen 22 mg/dl Bedside Creatinine 0.7 mg/dl Bedside Glucose (other) 144 mg/dl Bedside Ionized Calcium (Cesar) 1.12 mmol/l Urine Color YELLOW Urine Appearance CLEAR Urine pH 5.0 Urine Specific [place] 1.025 Urine Protein NEG Urine Glucose (UA) NEG Urine Ketones NEG Urine Occult Blood NEG Urine Nitrite NEG Urine Bilirubin NEG Urine Urobilinogen NEG Urine Leukocyte Esterase NEG Urine WBC (Auto) 1-5 /hpf Urine RBC (Auto) 0-4 /hpf Urine Hyaline Casts (Auto) 1-5 /lpf Urine Epithelial Cells (Auto) 10-20 /lpf Urine Bacteria (Auto) NEG Test 11/13/17 05:39 White Blood Count 1.67 K/uL Red Blood Count 2.37 M/uL Hemoglobin 7.4 g/dL Hematocrit 22.2 % Mean Corpuscular Volume 93.7 fL Mean Corpuscular Hemoglobin 31.2 pg Mean Corpuscular Hemoglobin Concent 33.3 g/dl Platelet Count 65 K/uL Mean Platelet Volume 9.5 fL Neutrophils (%) (Auto) 61.0 % Lymphocytes (%) (Auto) 20.4 % Monocytes (%) (Auto) 16.2 % Eosinophils (%) (Auto) 1.8 % Basophils (%) (Auto) 0.0 % Neutrophils # (Auto) 1.02 K/uL Lymphocytes # (Auto) 0.34 K/uL Monocytes # (Auto) 0.27 K/uL Eosinophils # (Auto) 0.03 K/uL Basophils # (Auto) 0.00 K/uL RDW Standard Deviation 65.6 fL RDW Coefficient of Variation 19.3 % Immature Granulocyte % (Auto) 0.6 % Immature Granulocyte # (Auto) 0.01 K/uL Toxic Granulation 1+ Dohle Bodies 1+ Large Platelets 1+ Anisocytosis PRESENT Sodium Level 141 mmol/L Potassium Level 3.6 mmol/L Chloride Level 111 mmol/L Carbon Dioxide Level 24 mmol/L Anion Gap 6.0 mmol/L Blood Urea Nitrogen 19 mg/dl Creatinine 0.75 mg/dl Est Creatinine Clear Calc Drug Dose 106.1 ml/min Estimated GFR () 116.4 Estimated GFR (Non- 100.4 BUN/Creatinine Ratio 25.3 Random Glucose 97 mg/dl Calcium Level 7.6 mg/dl Impression 57 y/o male history of multiple myeloma on decadron, Velcade, Revlimid wit history of radiation therapy x 10 treatments per pt admitted with dysphagia, odynopagiea. No evidence of oral yeast on exam. Santino esophagitis vs radiation esophagitis vs others. Chart review indicated pt has just started radiation therapy x 1 but pt suggests he has had 10 treatments. Plan IV Protonix BID Liquid Carafate QID Magic mouth wash QID Given AM labs GI will defer endoscopy today GI to follow, please call with any questions or concerns I performed a history and physical examination of the patient. I have discussed the patient's case, impression and plan with JAYLIN Gonzalez. Her note reflects my findings and plan. Given neutropenia, he is at high risk for EGD since a know risk factor is aspiration. Agree with BID PPI. Add Carafate. Reflux precautions; elevate head of bed. Mouth was clear of evidence of santino. Maksim Alonso MD
[2017-11-13] MEDS: LEVOFLOXACIN / D5W 750 MG in PREMIXED IN D5W 150 ML IV SCH (11:22)
[2017-11-13 11:38] VITALS: BP 94/62; PULSE 79; TEMP 36.7; O2SAT 94
[2017-11-13] MEDS: SUCRALFATE 1 GM/10 ML UDC PO SCH ×3 (12:53→20:12)
[2017-11-13 13:28] VITALS: BMI 23.9
[2017-11-13 15:06] VITALS: BP 94/65; PULSE 92; TEMP 36.5; O2SAT 94
[2017-11-13 18:36] VITALS: BP 90/59; PULSE 105; TEMP 36.8; O2SAT 96
[2017-11-13 19:33] LABS: HEMATOCRIT 23.3 % (42-52); HEMOGLOBIN 7.9 g/dL (14.0-18.0); MEAN CELL VOLUME 94.3 fL (80-100); MEAN CORPUSCULAR HGB CONC 33.9 g/dl (32-36); RED CELL DISTRIBUTION WIDTH CV 19.2 % (11.5-14.5); RED CELL DISTRIBUTION WIDTH SD 66.7 fL (36.4-46.3); WHITE BLOOD COUNT 1.63 K/uL (4.8-10.8)
[2017-11-13 19:38] LABS: MEAN PLATELET VOLUME 8.7 fL (7.4-10.4); PLATELET COUNT 60 K/uL (130-400)
--- NOTE | 2017-11-13 21:07 | Progress Note ---
Subjective Date of Service: Nov 13, 2017. Subjective Pt evaluation today including: conversation w/ patient, conversation w/ family (mother at bedside), physical exam, chart review, lab review, review of studies , review of inpatient medication list Pain: odynophagia, back, etc PO Intake: none; cannot swallow Voiding: no voiding problems during the visit he initially was sleeping awoke to name being called c/o fatigue finished his 10th xrt treatment last week severe dysphagia/odynophagia since can only take boost by mouth Problem List Medical Problems: (1) Dehydration Status: Acute (2) Dehydration Status: Acute (3) Difficulty swallowing Status: Acute (4) Pneumonia Status: Acute (5) Rib pain on right side Status: Acute Review of Systems Constitutional: + weakness, + fatigue, No fever, No chills Respiratory: No dyspnea at rest Cardiac: No chest pain, No orthopnea, No edema Abdomen: No pain, No diarrhea, No constipation Objective Vital Signs Date Time Temp Pulse Resp B/P (MAP) Pulse Ox O2 Delivery O2 Flow Rate FiO2 11/13/17 18:36 36.8 105 22 90/59 (69) 96 Room Air 11/13/17 16:00 Room Air 11/13/17 15:06 36.5 92 18 94/65 (75) 94 Room Air 11/13/17 11:38 36.7 79 20 94/62 (73) 94 Room Air 11/13/17 08:30 Room Air 11/13/17 07:23 36.7 70 18 107/70 (82) 95 Room Air 11/13/17 04:20 36.6 76 18 96/63 (74) 96 Room Air 11/13/17 00:00 Room Air 11/12/17 23:05 36.6 85 18 104/67 (79) 95 Room Air Physical Exam General Appearance: no apparent distress, + pertinent finding (looks ill but nontoxic) ENT: pharynx normal (MMM, no thrush) Neck: no JVD Respiratory/Chest: no respiratory distress, no accessory muscle use, + decreased breath sounds (left base) Cardiovascular: regular rate, rhythm, no gallop, no murmur Abdomen: normal bowel sounds, non tender, soft, no organomegaly Extremities: no pedal edema Neurologic/Psychiatric: no motor/sensory deficits (legs b/l ), alert, oriented x 3, + depressed affect Skin: + pallor, + pertinent finding (scar on upper back near t-spine) Laboratory Results Last 24 Hours Test 11/13/17 01:10 11/13/17 05:39 11/13/17 19:24 Urine Color YELLOW Urine Appearance CLEAR Urine pH 5.0 Urine Specific [place] 1.025 Urine Protein NEG Urine Glucose (UA) NEG Urine Ketones NEG Urine Occult Blood NEG Urine Nitrite NEG Urine Bilirubin NEG Urine Urobilinogen NEG Urine Leukocyte Esterase NEG Urine WBC (Auto) 1-5 /hpf Urine RBC (Auto) 0-4 /hpf Urine Hyaline Casts (Auto) 1-5 /lpf Urine Epithelial Cells (Auto) 10-20 /lpf Urine Bacteria (Auto) NEG White Blood Count 1.67 K/uL 1.63 K/uL Red Blood Count 2.37 M/uL 2.47 M/uL Hemoglobin 7.4 g/dL 7.9 g/dL Hematocrit 22.2 % 23.3 % Mean Corpuscular Volume 93.7 fL 94.3 fL Mean Corpuscular Hemoglobin 31.2 pg 32.0 pg Mean Corpuscular Hemoglobin Concent 33.3 g/dl 33.9 g/dl Platelet Count 65 K/uL 60 K/uL Mean Platelet Volume 9.5 fL 8.7 fL Neutrophils (%) (Auto) 61.0 % Lymphocytes (%) (Auto) 20.4 % Monocytes (%) (Auto) 16.2 % Eosinophils (%) (Auto) 1.8 % Basophils (%) (Auto) 0.0 % Neutrophils # (Auto) 1.02 K/uL Lymphocytes # (Auto) 0.34 K/uL Monocytes # (Auto) 0.27 K/uL Eosinophils # (Auto) 0.03 K/uL Basophils # (Auto) 0.00 K/uL RDW Standard Deviation 65.6 fL 66.7 fL RDW Coefficient of Variation 19.3 % 19.2 % Immature Granulocyte % (Auto) 0.6 % Immature Granulocyte # (Auto) 0.01 K/uL Toxic Granulation 1+ Dohle Bodies 1+ Large Platelets 1+ Anisocytosis PRESENT Sodium Level 141 mmol/L Potassium Level 3.6 mmol/L Chloride Level 111 mmol/L Carbon Dioxide Level 24 mmol/L Anion Gap 6.0 mmol/L Blood Urea Nitrogen 19 mg/dl Creatinine 0.75 mg/dl Est Creatinine Clear Calc Drug Dose 106.1 ml/min Estimated GFR () 116.4 Estimated GFR (Non- 100.4 BUN/Creatinine Ratio 25.3 Random Glucose 97 mg/dl Calcium Level 7.6 mg/dl Assessment and Plan 57yo male - 1. odynophagia/dysphagia - appreciate GI consultation. Suspected to be xrt radiation esophagitis. Cannot exclude candidal esophagitis but less likely. Cannot exclude, in light of immunocompromised status, CMV or HSV esophagitis. Await EGD. NPO in meantime. Fluids. Add boost. Change morphine to dilaudid PRN. Cont PPI BID, carafate, viscous lidocaine, etc. 2. multiple myeloma - remains on velcade, revlimid, and decadron (pulsed). Has pancytopenia presumably due to his MM and/or his chemotherapy agents. CBC in am for stability. Would transfuse PRBCs if Hb <7.5 due to CAD history. 3. chronic systolic CHF, EF 40-45% - based on previous echo - euvolemic at this time. BP too low for beta daksha. 4. chemotherapy induced pancytopenia (and/or due to Multiple Myeloma) - CBC in am. 5. 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 Leg strength intact on exam today. 6. neutropenia - mild - neutropenic precautions. CBC am. 7. suspected left-sided pneumonia - remains on levaquin; low threshold to broaden if any clinical worsening. Blood cx's thus far negative and afebrile. Repeat CXR in am. 8. CAD - no ischemic symptoms at this time. Remains on aspirin, but if platelets drop any lower consider holding. Cont statin. 9. FEN - cont fluids cautiously in light of CHF history; add BOOST TID w/ meals ; bmp in am. 10. DVT proph - SCDs; chemical means contraindicated due to worsening thrombocytopenia. 11. PAD - noted; asa, statin. 12. protein calorie malnutrition, at least moderate - boost TID w/ meals, etc. 13. chronic pain syndrome - cont fentanyl patch along w/ bowel regimen. PT, OT evals due to deconditionig/weakness Continued [facility] stay due to: inadequate po fluid intake, inadequate oral pain control, multiple IV medications needed Discharge planning: home
[2017-11-13 23:18] VITALS: BP 90/58; PULSE 110; TEMP 37.7; O2SAT 93
[2017-11-14] VITALS (18 sets, daily range): BP systolic 92–134; BP diastolic 60–87; PULSE 56–110; TEMP 36.4–37.7; O2SAT 93–98; BMI 24.5
[2017-11-14] MEDS: SODIUM CHLORIDE 0.9% 1000ML 1,000 ML IV SCH (05:46)
[2017-11-14] MEDS: SUCRALFATE 1 GM/10 ML UDC PO SCH ×4 (05:47→21:10)
[2017-11-14 06:02] LABS: HEMATOCRIT 23.2 % (42-52); HEMOGLOBIN 7.7 g/dL (14.0-18.0); MEAN CELL VOLUME 93.9 fL (80-100); MEAN CORPUSCULAR HEMOGLOBIN 31.2 pg (25-34); MEAN CORPUSCULAR HGB CONC 33.2 g/dl (32-36); MEAN PLATELET VOLUME 9.6 fL (7.4-10.4); PLATELET COUNT 70 K/uL (130-400); RED CELL DISTRIBUTION WIDTH CV 19.2 % (11.5-14.5); RED CELL DISTRIBUTION WIDTH SD 66.3 fL (36.4-46.3); WHITE BLOOD COUNT 1.59 K/uL (4.8-10.8)
[2017-11-14 06:26] LABS: CALCIUM 7.9 mg/dl (8.5-10.1); CREATININE 0.79 mg/dl (0.60-1.40); POTASSIUM 3.4 mmol/L (3.5-5.1)
[2017-11-14 06:43] LABS: BASO % 0.6 %; BASO ABS # 0.01 K/uL (0-0.2); EOS ABS # 0.08 K/uL (0-0.5); LYMPH % 25.8 %; LYMPH ABS # 0.41 K/uL (1.2-3.4); MONO % 13.2 %; MONO ABS # 0.21 K/uL (0.11-0.59); NEUT % 55.4 %; NEUT ABS # 0.88 K/uL (1.4-6.5)
--- NOTE | 2017-11-14 07:45 | DIAGNOSTIC IMAGING REPORT ---
CHEST 2 VIEWS ROUTINE HISTORY: 57 years-old Male left sided pneumonia acute cough. Follow-up study to assess left lung pneumonia COMPARISON: Chest radiographs 11/12/2017 TECHNIQUE: PA and lateral views of the chest FINDINGS: Persistent alveolar opacities of the lingula and left lower lobe are noted jet not significantly changed from comparison. No pneumothorax, large pleural effusion or overt pulmonary edema. Mild blunting of the bilateral costophrenic angles may reflect trace effusions. Cardiac silhouette is upper limits of normal, unchanged. Background emphysema with chronic interstitial coarsening. Posterior ten and screw fusion of the midthoracic spine. The bones appear grossly intact. IMPRESSION: Persistent alveolar opacities of the lingula and basal left lower lobe suggest ongoing pneumonia. The above report was generated using voice recognition software. It may contain grammatical, syntax or spelling errors. Electronically signed by: Audi Pratt M.D. 11/14/2017 7:43 AM Dictated Date/Time: 11/14/2017 7:41 AM
[2017-11-14] MEDS: DOCUSATE SODIUM/SENNA 50/8.6MG TAB PO SCH ×2 (08:00→20:00)
[2017-11-14] MEDS: PRAVASTATIN SOD 40 MG TAB PO SCH (08:00)
[2017-11-14] MEDS ORDERED: BOOST VANILLA PO SCH (08:00)
[2017-11-14] MEDS: ASPIRIN 81 MG ECTAB PO SCH (08:00)
[2017-11-14] MEDS: LIDODERM (LIDOCAINE) PATCH 5% TD SCH (08:06)
[2017-11-14] MEDS: PANTOprazole INJ 40 MG in SYRINGE 0 ML IV SCH ×2 (08:07→21:10)
[2017-11-14] MEDS: HYDROmorphone INJ 2 MG/ML SYR/VIAL IV PRN ×3 (08:07→15:19)
[2017-11-14] MEDS: CHECK FENTANYL PATCH PLACEMENT SCH ×2 (08:07→15:57)
[2017-11-14] MEDS: GABAPENTIN 100 MG CAP PO SCH ×3 (08:12→21:09)
[2017-11-14] MEDS: DULOXETINE (CYMBALTA) 30 MG CAP PO SCH ×2 (08:12→21:09)
[2017-11-14] MEDS: DEXAMETHASONE CONC SOLN 3.75 MG, NYSTATIN SUSP 30 ML, DiphenhydrAMINE HCL SYRUP 300 MG,... PO SCH ×20 (08:13→21:08)
[2017-11-14] MEDS ORDERED: CEFEPIME IV 2,000 MG in DEXTROSE 5% 100ML 100 ML IV SCH (08:45)
[2017-11-14] MEDS ORDERED: ACETAMINOPHEN 500 MG TAB PO SCH (09:30)
--- NOTE | 2017-11-14 09:45 | Gastroenterology Progress Note ---
Progress Note Date of Service: Nov 14, 2017 Subjective Pt evaluation today including: conversation w/ patient, physical exam, chart review, lab review Pt was seen and evaluated, chart reviewed. No acute events overnight. Is currently eating breakfast. Tolerated broth, water. Did note some regurgitation and odynophagia with this. Is currently trying to eat jello, does feel to have dysphagia with this. Feels sensation of food sticking and slowing dropping down. Is able to tolerate secretions. No abd pain, nausea, vomiting. Has been coughing some mucous up. No fever, chills, CP, SOB Review of Systems Constitutional: No fever, No chills, No weakness, No fatigue Respiratory: + cough, No shortness of breath Cardiac: No chest pain, No edema Abdomen: + dysphagia, + odynophagia, No pain, No nausea, No vomiting, No diarrhea, No constipation, No GI bleeding Medications Current Inpatient Medications Medications (Trade) Dose Ordered Sig/Malik Route Start Time Stop Time Status Last Admin Dose Admin Acetaminophen (Tylenol Tab) 650 mg Q4H PRN PO 11/12/17 14:00 12/12/17 13:59 Al Hydrox/Mg Hydrox/Simethicone (Maalox Max Susp) 15 ml Q4H PRN PO 11/12/17 14:00 12/12/17 13:59 Magnesium Hydroxide (Milk Of Magnesia Susp) 30 ml Q6H PRN PO 11/12/17 14:00 12/12/17 13:59 Polyethylene (Miralax Powder Packet) 17 gm DAILY PRN PO 11/12/17 14:00 12/12/17 13:59 Ondansetron HCl (Zofran Inj) 4 mg Q6H PRN IV 11/12/17 14:00 12/12/17 13:59 Sodium Chloride 1,000 ml @ 100 mls/hr Q10H IV 11/12/17 14:00 12/12/17 13:59 11/14/17 05:46 100 MLS/HR Pantoprazole Sodium 40 mg/ Syringe 10 ml @ 5 mls/min DAILY@09,21 IV 11/12/17 16:00 12/12/17 15:59 11/14/17 08:07 5 MLS/MIN Aspirin (Ecotrin Tab) 81 mg DAILY PO 11/13/17 08:00 12/13/17 08:59 Duloxetine HCl (Cymbalta Cap) 30 mg DAILY PO 11/13/17 08:00 12/13/17 08:59 11/14/17 08:12 30 MG Fentanyl (Duragesic Patch) 50 mcg Q72H TD 11/13/17 09:00 11/27/17 08:59 11/13/17 08:46 50 MCG Gabapentin (Neurontin Cap) 100 mg TID PO 11/12/17 14:00 12/12/17 13:59 11/14/17 08:12 100 MG Lidocaine (Lidoderm Patch 5%) 1 patch DAILY TD 11/13/17 08:00 12/13/17 08:59 11/14/17 08:06 1 PATCH Senna/Docusate Sodium (Senokot S Tab) 1 tab BID PO 11/12/17 20:00 12/12/17 20:59 11/13/17 20:10 1 TAB Oxycodone HCl (Roxicodone Immediate Rel Tab) 10 mg Q4H PRN PO 11/12/17 14:00 12/12/17 13:59 Pravastatin Sodium (Pravachol Tab) 80 mg DAILY PO 11/13/17 08:00 12/13/17 08:59 Miscellaneous (Remove Lidoderm Patch) 1 ea DAILY@21 N/A 11/12/17 21:00 12/12/17 20:59 11/13/17 20:12 1 EA Lidocaine HCl (Viscous Lidocaine 2% Soln) 20 ml Q3H PRN MT 11/12/17 14:00 12/12/17 13:59 11/12/17 19:51 20 ML Levofloxacin 750 mg/Prmx 150 ml @ 100 mls/hr Q24H IV 11/13/17 11:00 11/18/17 12:29 11/13/17 11:22 100 MLS/HR Miscellaneous (Iv Fluids Completed) 1 ea PRN PRN N/A 11/12/17 14:45 11/12/18 14:44 Dexamethasone/ Nystatin/ Diphenhydramine HCl/Sucrose/ Microcrystalline Cellulose/Barcode QID PO 11/12/17 17:00 12/12/17 16:59 11/14/17 08:13 5 ML Miscellaneous (Fentanyl Patch Remove & Waste) 1 ea Q3D@0859 N/A 11/13/17 08:59 12/13/17 08:58 11/13/17 08:48 1 EA Miscellaneous Information (Check Fentanyl Patch Placement) 1 ea QS N/A 11/12/17 16:00 12/12/17 15:59 11/14/17 08:07 1 EA Hydromorphone HCl (Dilaudid Inj) 1 mg Q3H PRN IV 11/13/17 08:15 11/27/17 08:14 11/14/17 08:07 1 MG Sucralfate (Carafate Susp) 1 gm ACHS PO 11/13/17 12:30 12/13/17 12:29 11/14/17 05:47 1 GM Enteral Nutritional Formula (Boost) 1 can TIDM PO 11/14/17 08:00 12/14/17 07:59 11/14/17 08:15 1 CAN Potassium Chloride 10 meq/ Prmx 100 ml @ 100 mls/hr Q1H IV 11/14/17 08:45 11/14/17 10:44 Cefepime HCl 2000 mg/Syringe 20 ml @ 5 mls/min Q8H IV 11/14/17 10:00 11/21/17 08:59 Filgrastim (Neupogen Sq) 480 mcg DAILY SC 11/14/17 09:30 12/14/17 09:29 Acetaminophen (Tylenol Tab) 1,000 mg TODAY@0930 PO 11/14/17 09:30 11/14/17 23:59 Diphenhydramine HCl (Benadryl Cap) 25 mg TODAY@0930 PO 11/14/17 09:30 11/14/17 23:59 Objective Vital Signs Date Time Temp Pulse Resp B/P (MAP) Pulse Ox O2 Delivery O2 Flow Rate FiO2 11/14/17 07:04 37.7 106 16 98/65 (76) 95 11/14/17 04:07 37.7 105 18 92/60 (71) 95 Room Air 11/14/17 00:00 Room Air 11/13/17 23:18 37.7 110 18 90/58 (69) 93 Room Air 11/13/17 18:36 36.8 105 22 90/59 (69) 96 Room Air 11/13/17 16:00 Room Air 11/13/17 15:06 36.5 92 18 94/65 (75) 94 Room Air 11/13/17 11:38 36.7 79 20 94/62 (73) 94 Room Air Physical Exam General Appearance: no apparent distress Eyes: PERRL ENT: hearing grossly normal Neck: trachea midline Respiratory/Chest: lungs clear, normal breath sounds Cardiovascular: regular rate, rhythm, no gallop, no JVD, no murmur Abdomen: normal bowel sounds, non tender, soft, no organomegaly, no pulsatile mass Neurologic/Psych: alert, normal mood/affect, oriented x 3 Skin: normal color, warm/dry, no rash Laboratory Results Last 24 Hours Test 11/13/17 19:24 11/14/17 05:31 White Blood Count 1.63 K/uL 1.59 K/uL Red Blood Count 2.47 M/uL 2.47 M/uL Hemoglobin 7.9 g/dL 7.7 g/dL Hematocrit 23.3 % 23.2 % Mean Corpuscular Volume 94.3 fL 93.9 fL Mean Corpuscular Hemoglobin 32.0 pg 31.2 pg Mean Corpuscular Hemoglobin Concent 33.9 g/dl 33.2 g/dl RDW Standard Deviation 66.7 fL 66.3 fL RDW Coefficient of Variation 19.2 % 19.2 % Platelet Count 60 K/uL 70 K/uL Mean Platelet Volume 8.7 fL 9.6 fL Neutrophils (%) (Auto) 55.4 % Lymphocytes (%) (Auto) 25.8 % Monocytes (%) (Auto) 13.2 % Eosinophils (%) (Auto) 5.0 % Basophils (%) (Auto) 0.6 % Neutrophils # (Auto) 0.88 K/uL Lymphocytes # (Auto) 0.41 K/uL Monocytes # (Auto) 0.21 K/uL Eosinophils # (Auto) 0.08 K/uL Basophils # (Auto) 0.01 K/uL Immature Granulocyte % (Auto) 0.0 % Immature Granulocyte # (Auto) 0.00 K/uL Toxic Granulation 1+ Anisocytosis PRESENT Tear Drop Cells 1+ Sodium Level 134 mmol/L Potassium Level 3.4 mmol/L Chloride Level 106 mmol/L Carbon Dioxide Level 24 mmol/L Anion Gap 4.0 mmol/L Blood Urea Nitrogen 14 mg/dl Creatinine 0.79 mg/dl Est Creatinine Clear Calc Drug Dose 100.7 ml/min Estimated GFR () 113.9 Estimated GFR (Non- 98.3 BUN/Creatinine Ratio 17.2 Random Glucose 89 mg/dl Calcium Level 7.9 mg/dl Assessment and Plan 57 y/o male history of multiple myeloma on decadron, Velcade, Revlimid wit history of radiation therapy x 10 treatments per pt admitted with dysphagia, odynophagia. No evidence of oral yeast on exam. Theodora esophagitis vs radiation esophagitis vs others. Notes little improvement with therapy outlines below - tolerated water and broth this AM but reports severe odynophagia still requiring IV pain medication. Endoscopy was deferred due to neutropenia IV Protonix BID Liquid Carafate QID Magic mouth wash QID If pt is still admitted and having ongoing issues over the weekend, can tentatively plan for EGD next week pending labs GI to follow, please call with any questions or concerns
[2017-11-14] MEDS: FILGRASTIM 480 MCG/1.6 ML VIAL SC SCH (09:47)
[2017-11-14] MEDS: POTASSIUM CHLR 10 MEQ / WTR 10 MEQ in PREMIXED WATER 100 ML IV SCH ×2 (09:48→13:20)
--- NOTE | 2017-11-14 10:11 | ONCOLOGY CONSULTATION ---
DATE OF CONSULTATION: 11/14/2017 REASON FOR CONSULTATION: Odynophagia, low grade fever in a 57-year-old gentleman with multiple myeloma. HISTORY OF PRESENT ILLNESS: Mj is a pleasant 57-year-old gentleman well known to the [facility] recently diagnosed with multiple myeloma. Mj was in the midst of receiving palliative radiation therapy to the thoracic spine 300 cGy fractions x10. I believe he was on his seventh fraction prior to admission to hospital. He was recently started on Revlimid, Velcade, and dexamethasone. Apparently 24 hours prior to admission, developed a fever of 102. His p.o. intake has been limited because of odynophagia. I suspect attributable to ongoing radiation therapy. Upon admission, a chest x-ray suggests left lower lobe pneumonia and was started on IV antibiotics. His most recent peripheral counts are consistent with treatment-induced cytopenias. PAST MEDICAL HISTORY: 1. Again, significant for multiple myeloma, adverse chemotherapeutic effect. 2. Coronary artery disease status post stenting. 3. Hyperlipidemia. 4. Anxiety. 5. PAD. Status post aortofemoral bypass. 6. He has also had back surgery x2. MEDICATIONS: Prior to admission include Revlimid 25 mg p.o. q. daily x14 days, every 21-day cycle, gabapentin 100 mg p.o. t.i.d., Duragesic patch 50 mcg topically q. 72 hours, Cymbalta 30 mg p.o. q. daily, dexamethasone 20 mg q. weekly, ciprofloxacin 500 mg p.o. b.i.d. He receives bortezomib weekly subQ, aspirin 81 mg p.o. q. daily, cholecalciferol 1 tablet p.o. q. daily, Senokot 1 tablet p.o. b.i.d. p.r.n. ALLERGIES: ATORVASTATIN AND SIMVASTATIN. SOCIAL HISTORY: The patient is , a reformed smoker, nondrinker. FAMILY HISTORY: Noncontributory. REVIEW OF SYSTEMS: As per HPI most notably for a low grade fever and chills. Positive for anorexia. SKIN: No rashes or lesions. No history of dermatoses. HEENT: Denies headaches, lightheadedness, or dizziness. No acute visual hearing deficits. No sinus symptoms, sore throat. Positive for dysphagia/odynophagia. LYMPH: No history of lymphadenopathy or lymphoproliferative disease. CARDIAC: Positive history of coronary artery disease. No current angina or palpitations. PULMONARY: Negative for COPD. No shortness of breath, dyspnea, or orthopnea. No cough or hemoptysis. GASTROINTESTINAL: Negative for abdominal pain, nausea or vomiting, diarrhea or constipation. GENITOURINARY: No history of prostate cancer. No hematuria, dysuria, urinary incontinence. PSYCHIATRIC: Negative for anxiety, depression, or psychoses. ENDOCRINE: Negative for diabetes or thyroid disease. NEUROLOGIC: Negative for seizure, stroke, or migraine headache. HEMATOLOGIC: Again, treatment-induced cytopenias. PHYSICAL EXAMINATION: GENERAL: Very pleasant 57-year-old gentleman, awake, alert, and appropriate, in no acute distress. VITAL SIGNS: Temperature 37.7, pulse 106, respiratory rate 16, blood pressure 98/65. SKIN: Without rash or lesion. Warm, dry, noncyanotic. Turgor is fair. HEENT: Head, atraumatic, normocephalic. Eyes, PERRLA, EOMI. Sclerae nonicteric. No conjunctival injection. Nares patent without rhinorrhea or discharge. Throat is clear. Tongue midline. Mucous membranes are moist. NECK: Supple without JVD or thyromegaly. LYMPH: No cervical, supraclavicular, axillary palpable nodes. HEART: Regular rate and rhythm. No clicks, rubs, murmurs, or gallops. LUNGS: Clear to auscultation bilaterally. ABDOMEN: Soft, nontender, nondistended. Bowel sounds are active. No palpable hepatosplenomegaly. EXTREMITIES: Musculoskeletal strength and pulses are equal in all 4 quadrants. No clubbing, cyanosis, or edema otherwise. NEUROLOGICALLY: The patient is awake, alert, and oriented x3. Cranial nerves II-XII are intact. LABORATORY DATA: WBC count 1590; hemoglobin 7.7; platelet count 70,000. Sodium 134, potassium 3.4, chloride 106, carbon dioxide 24, creatinine 0.79, BUN 14. RADIOGRAPHIC DATA: Chest x-ray consistent with a left lower lobe opacity suggestive of pneumonia. IMPRESSION: 1. Left lower lobe pneumonia. 2. Radiation-induced esophagitis. 3. Multiple myeloma. 4. Intractable bony pain attributable to multiple myeloma. 5. Status post palliative radiation therapy to thoracic spine. 6. Cytopenias attributable to current chemotherapeutics. PLAN: I have been asked to see Mr. Anders by Dr. Beckman who is the managing hospitalist. Mr. Anders had called our clinic couple of days ago with low grade fever and was advised if his condition worsened to report to the Emergency Room, for which he did. He has had difficulty with odynophagia and dysphagia with minimal p.o. intake. He recently started combination of Revlimid, Velcade, and dexamethasone for new diagnosis of multiple myeloma. This gentleman unfortunately suffers from significant lytic disease involving the thoracic spine thus, the rationale for palliative radiation therapy. Upon presentation, he was found to have low-grade fever and left lower lobe pneumonia. He is receiving appropriate antimicrobials and conservative care to the esophagus. I would prefer to hold off on any endoscopic procedures. The patient is neutropenic and I believe he is suffering from radiation-induced esophagitis and not candidiasis. Examination of the buccal mucosa revealed no evidence of oral candidiasis. Nonetheless, with active pneumonia, he should receive Neupogen, which will be ordered today. I also agree with Dr. Beckman 2 units packed RBCs would be helpful in the short term. Once he is medically stable, I will have him resume chemotherapy and discuss holding off on further palliative radiotherapy with Dr. Sonny Booth. Thank you very much for allowing me to participate in the care of this very pleasant gentleman. I will be conditioner tender the rest of weekend if there are any questions or concerns.
[2017-11-14] MEDS: CEFEPIME IV 2,000 MG in SYRINGE 7.5 ML IV SCH ×2 (10:39→17:29)
[2017-11-14] MEDS: LEVOFLOXACIN / D5W 750 MG in PREMIXED IN D5W 150 ML IV SCH (10:41)
[2017-11-14] MEDS: BOOST VANILLA PO SCH ×2 (11:45→17:02)
[2017-11-14] MEDS: OXYCODONE HCL IR 5 MG TAB (IMMEDIATE RELEASE) PO PRN ×3 (13:27→21:11)
--- NOTE | 2017-11-14 19:48 | Progress Note ---
Subjective Date of Service: Nov 14, 2017. Subjective Pt evaluation today including: conversation w/ patient, physical exam, chart review, lab review, conversation w/ consultant [employer] vice president [employer] (ex ) (oncology - Dr. Smith) Pain: multiple areas (back, etc) PO Intake: tolerated clears for breakfast (still had pain, however) Voiding: no voiding problems no significant change from yesterday still coughing denies any dyspnea at rest significant fatigue, pain in multiple locations, etc he cannot recall if he has ever had blood transfusion Problem List Medical Problems: (1) Dehydration Status: Acute (2) Dehydration Status: Acute (3) Difficulty swallowing Status: Acute (4) Pneumonia Status: Acute (5) Rib pain on right side Status: Acute Review of Systems Constitutional: + fever (this AM ), No chills Respiratory: + cough, No sputum, No dyspnea at rest, No hemoptysis Cardiac: No chest pain, No orthopnea, No PND, No edema Abdomen: No pain, No vomiting, No diarrhea, No constipation Objective Vital Signs Date Time Temp Pulse Resp B/P (MAP) Pulse Ox O2 Delivery O2 Flow Rate FiO2 11/14/17 19:20 36.9 110 18 118/76 (90) 96 Room Air 11/14/17 16:30 36.9 92 18 103/68 96 11/14/17 16:00 96 Room Air 11/14/17 15:35 36.5 100 18 102/68 96 11/14/17 15:10 112/73 11/14/17 15:00 36.5 82 18 134/87 98 11/14/17 14:30 36.5 92 18 107/69 98 11/14/17 14:15 36.6 100 18 103/67 11/14/17 14:05 36.5 98 18 98/65 11/14/17 13:20 36.4 103 16 111/68 11/14/17 12:13 36.8 103 18 107/69 11/14/17 11:39 36.9 92 18 100/66 11/14/17 11:05 37.1 108 16 100/61 11/14/17 10:47 37.3 109 16 115/70 11/14/17 10:29 37.1 56 22 111/66 11/14/17 08:15 Room Air 11/14/17 07:04 37.7 106 16 98/65 (76) 95 11/14/17 04:07 37.7 105 18 92/60 (71) 95 Room Air 11/14/17 00:00 Room Air 11/13/17 23:18 37.7 110 18 90/58 (69) 93 Room Air Physical Exam General Appearance: no apparent distress, + pertinent finding (looks ill) ENT: pharynx normal Neck: no JVD Respiratory/Chest: no respiratory distress, no accessory muscle use, + crackles (focal left base), + wheezing (focal - left base) Cardiovascular: no gallop, no murmur, + tachycardia Abdomen: normal bowel sounds, non tender, soft, no organomegaly Extremities: no pedal edema Neurologic/Psychiatric: alert, oriented x 3, + depressed affect Skin: + pallor Laboratory Results Last 24 Hours Test 11/14/17 05:31 White Blood Count 1.59 K/uL Red Blood Count 2.47 M/uL Hemoglobin 7.7 g/dL Hematocrit 23.2 % Mean Corpuscular Volume 93.9 fL Mean Corpuscular Hemoglobin 31.2 pg Mean Corpuscular Hemoglobin Concent 33.2 g/dl Platelet Count 70 K/uL Mean Platelet Volume 9.6 fL Neutrophils (%) (Auto) 55.4 % Lymphocytes (%) (Auto) 25.8 % Monocytes (%) (Auto) 13.2 % Eosinophils (%) (Auto) 5.0 % Basophils (%) (Auto) 0.6 % Neutrophils # (Auto) 0.88 K/uL Lymphocytes # (Auto) 0.41 K/uL Monocytes # (Auto) 0.21 K/uL Eosinophils # (Auto) 0.08 K/uL Basophils # (Auto) 0.01 K/uL RDW Standard Deviation 66.3 fL RDW Coefficient of Variation 19.2 % Immature Granulocyte % (Auto) 0.0 % Immature Granulocyte # (Auto) 0.00 K/uL Toxic Granulation 1+ Anisocytosis PRESENT Tear Drop Cells 1+ Sodium Level 134 mmol/L Potassium Level 3.4 mmol/L Chloride Level 106 mmol/L Carbon Dioxide Level 24 mmol/L Anion Gap 4.0 mmol/L Blood Urea Nitrogen 14 mg/dl Creatinine 0.79 mg/dl Est Creatinine Clear Calc Drug Dose 100.7 ml/min Estimated GFR () 113.9 Estimated GFR (Non- 98.3 BUN/Creatinine Ratio 17.2 Random Glucose 89 mg/dl Calcium Level 7.9 mg/dl Assessment and Plan 57yo male - 1. odynophagia/dysphagia - suspected to be xrt esophagitis. Cannot exclude candidal esophagitis but less likely. Cannot exclude, in light of immunocompromised status, CMV or HSV esophagitis. EGD deferred due to neutropenia. Cont clear liquids as tolerated. Cont boost for protein/fat calories. Cont dilaudid PRN for breakthrough pain. Cont PPI BID, carafate, viscous lidocaine, etc. Appreciate GI consultation. 2. multiple myeloma - remains on velcade, revlimid, and decadron (pulsed). Has pancytopenia presumably due to his MM and/or his chemotherapy agents. Appreciate heme/onc consultation. In light of fever/pneumonia daily neupogen ordered. Daily CBC. Check b12/folate to be complete. 3. chronic systolic CHF, EF 40-45% - based on previous echo - euvolemic at this time. BP too low for beta daksha. Stop fluids once PRBCs have been infused. 4. chemotherapy induced pancytopenia (and/or due to Multiple Myeloma) - Hb<8 and in light of cardiopulmonary disease will Tx 2 units of irradiated PRBCs today. tylenol/benadryl prior. CBC in am. 5. 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 Leg strength intact. PT, OT evals. 6. neutropenia - moderate - neutropenic precautions. To be started on daily neupogen by oncology. CBC am. 7. left-sided pneumonia - remains on levaquin but febrile overnight. need to cover for gram negative etiology in light of immunocompromised status. Add cefepime 2mg Q8h. Blood cx's thus far negative. MRSA swab; if negative defer on MRSA coverage. 8. CAD - no ischemic symptoms at this time. Remains on aspirin, but if platelets drop any lower consider holding. Cont statin. 9. FEN - stop fluids; clear liquid diet; bmp in am. 10. DVT proph - SCDs; chemical means contraindicated due to thrombocytopenia. 11. PAD - noted; asa, statin. 12. protein calorie malnutrition, at least moderate - boost TID w/ meals, etc. 13. chronic pain syndrome - cont fentanyl patch along w/ bowel regimen. Dilaudid prn. Consider increase in fentanyl patch. PT, OT evals due to deconditioning/weakness left message for 11/14/17 Continued [facility] stay due to: fever, inadequate po fluid intake, inadequate oral pain control, multiple IV medications needed Discharge planning: home
[2017-11-15] VITALS (9 sets, daily range): BP systolic 101–116; BP diastolic 70–77; PULSE 95–112; TEMP 36.8–37.4; O2SAT 94–97; BMI 25.1
[2017-11-15] MEDS: CEFEPIME IV 2,000 MG in SYRINGE 7.5 ML IV SCH ×3 (02:32→16:41)
[2017-11-15 06:03] LABS: HEMATOCRIT 28.6 % (42-52); HEMOGLOBIN 9.9 g/dL (14.0-18.0); MEAN CELL VOLUME 90.2 fL (80-100); MEAN CORPUSCULAR HEMOGLOBIN 31.2 pg (25-34); MEAN CORPUSCULAR HGB CONC 34.6 g/dl (32-36); RED CELL DISTRIBUTION WIDTH CV 19.2 % (11.5-14.5); WHITE BLOOD COUNT 2.14 K/uL (4.8-10.8)
[2017-11-15 06:06] LABS: MEAN PLATELET VOLUME 9.9 fL (7.4-10.4); PLATELET COUNT 68 K/uL (130-400)
[2017-11-15] MEDS: SUCRALFATE 1 GM/10 ML UDC PO SCH ×4 (06:21→20:44)
[2017-11-15 06:38] LABS: CALCIUM 7.9 mg/dl (8.5-10.1); CREATININE 0.75 mg/dl (0.60-1.40); POTASSIUM 3.5 mmol/L (3.5-5.1)
[2017-11-15 06:46] LABS: BASO % 0.5 %; BASO ABS # 0.01 K/uL (0-0.2); EOS % 6.5 %; EOS ABS # 0.14 K/uL (0-0.5); IG# 0.04 K/uL (0.00-0.02); LYMPH % 23.4 %; MONO % 14.5 %; MONO ABS # 0.31 K/uL (0.11-0.59); NEUT % 53.2 %; NEUT ABS # 1.14 K/uL (1.4-6.5)
[2017-11-15] MEDS: BOOST VANILLA PO SCH ×3 (08:00→16:38)
[2017-11-15] MEDS: CHECK FENTANYL PATCH PLACEMENT SCH ×5 (08:00→23:21)
[2017-11-15] MEDS: HYDROmorphone INJ 2 MG/ML SYR/VIAL IV PRN ×3 (08:37→19:36)
[2017-11-15] MEDS: DEXAMETHASONE CONC SOLN 3.75 MG, NYSTATIN SUSP 30 ML, DiphenhydrAMINE HCL SYRUP 300 MG,... PO SCH ×20 (08:38→19:24)
[2017-11-15] MEDS: LIDODERM (LIDOCAINE) PATCH 5% TD SCH (08:39)
[2017-11-15] MEDS: FILGRASTIM 480 MCG/1.6 ML VIAL SC SCH (08:39)
[2017-11-15] MEDS: GABAPENTIN 100 MG CAP PO SCH ×3 (08:40→19:37)
[2017-11-15] MEDS: DOCUSATE SODIUM/SENNA 50/8.6MG TAB PO SCH ×2 (08:40→19:38)
[2017-11-15] MEDS: ASPIRIN 81 MG ECTAB PO SCH (08:40)
[2017-11-15] MEDS: PRAVASTATIN SOD 40 MG TAB PO SCH (08:41)
[2017-11-15] MEDS: PANTOprazole INJ 40 MG in SYRINGE 0 ML IV SCH ×2 (08:44→20:44)
[2017-11-15] MEDS: DULOXETINE (CYMBALTA) 30 MG CAP PO SCH ×2 (08:47→19:37)
[2017-11-15] MEDS: LEVOFLOXACIN / D5W 750 MG in PREMIXED IN D5W 150 ML IV SCH (11:11)
[2017-11-15] MEDS ORDERED: FENTANYL 12 MCG/HR TDSY TD SCH (19:00)
[2017-11-16] MEDS: CEFEPIME IV 2,000 MG in SYRINGE 7.5 ML IV SCH ×3 (02:09→17:30)
[2017-11-16 04:25] VITALS: BP 107/70; PULSE 108; TEMP 36.5; O2SAT 98
[2017-11-16 06:11] VITALS: BMI 25.0
[2017-11-16] MEDS: SUCRALFATE 1 GM/10 ML UDC PO SCH ×4 (06:31→21:04)
[2017-11-16] MEDS: HYDROmorphone INJ 2 MG/ML SYR/VIAL IV PRN (06:36)
[2017-11-16 07:29] VITALS: BP 102/70; PULSE 94; TEMP 36.8; O2SAT 92
--- NOTE | 2017-11-16 07:49 | Progress Note ---
Subjective Date of Service: late entry for visit Nov 15, 2017. Subjective Pt evaluation today including: conversation w/ patient, conversation w/ family ( at bedside), physical exam, chart review, lab review Pain: esophageal/throat, also his back PO Intake: very poor clear liquid intake Voiding: no voiding problems admits to ongoing depression, fatigue, pain minimal cough despondent because of all the medical issues going on w/ numerous questions had bowel movement yesterday Problem List Medical Problems: (1) Dehydration Status: Acute (2) Dehydration Status: Acute (3) Difficulty swallowing Status: Acute (4) Pneumonia Status: Acute (5) Rib pain on right side Status: Acute Review of Systems Constitutional: + fatigue, No fever, No chills Respiratory: No dyspnea at rest, No hemoptysis Cardiac: No chest pain, No orthopnea, No PND, No edema Abdomen: + pain, + nausea, No vomiting, No diarrhea, No constipation Objective Vital Signs Date Time Temp Pulse Resp B/P (MAP) Pulse Ox O2 Delivery O2 Flow Rate FiO2 11/16/17 07:29 36.8 94 18 102/70 (81) 92 Room Air 11/16/17 04:25 36.5 108 20 107/70 (82) 98 Room Air 11/16/17 00:00 Room Air 11/15/17 23:23 36.8 103 20 116/77 (90) 94 Room Air 11/15/17 20:41 37.0 109 20 108/72 (84) 94 Room Air 11/15/17 19:34 112 113/71 (85) 11/15/17 16:00 97 Room Air 11/15/17 15:05 37.4 103 20 101/70 (80) 95 Room Air 11/15/17 11:02 37.1 106 18 109/72 (84) 95 Room Air 11/15/17 08:00 97 Room Air Physical Exam General Appearance: no apparent distress, + pertinent finding (looks depressed ) ENT: pharynx normal (no mucositis ) Neck: no JVD Respiratory/Chest: no respiratory distress, no accessory muscle use, + crackles (minimal - left base) Cardiovascular: no gallop, + tachycardia, + systolic murmur (1/6 LSB) Abdomen: normal bowel sounds, non tender, soft, no organomegaly Extremities: no pedal edema Neurologic/Psychiatric: alert, oriented x 3, + depressed affect Laboratory Results Last 24 Hours Test 11/16/17 07:44 Assessment and Plan 57yo male - 1. odynophagia/dysphagia - suspected to be xrt esophagitis. Cannot exclude candidal esophagitis but less likely. Cannot exclude, in light of immunocompromised status, CMV or HSV esophagitis. EGD deferred due to neutropenia. Cont clear liquids as tolerated; if patient desires full liquids that is ok too. Cont boost for protein/fat calories. Cont dilaudid PRN for breakthrough pain. Cont PPI BID, carafate, viscous lidocaine, etc. Appreciate GI consultation. Increase fentanyl to 62mcg q72h. 2. multiple myeloma - remains on velcade, revlimid, and decadron (pulsed). Has pancytopenia presumably due to his MM and/or his chemotherapy agents. Appreciate heme/onc consultation. In light of fever/pneumonia daily neupogen ordered. Daily CBC. Checked b12/folate to be complete - stores adequate. 3. chronic systolic CHF, EF 40-45% - based on previous echo - euvolemic at this time. BP too low for beta daksha. 4. chemotherapy induced pancytopenia (and/or due to Multiple Myeloma) - stable , H/H improved s/p PRBCs. 5. 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 Leg strength intact. PT, OT evals. 6. neutropenia - moderate - neutropenic precautions. Cont daily neupogen as ordered by oncology. CBC am. 7. left-sided pneumonia - cont levaquin and cefepime. Covering for possibility of gram negative etiology. Aspiration possible too. Blood cx's thus far negative. MRSA swab negative thus defer on MRSA coverage. Clinically stable. 8. CAD - no ischemic symptoms at this time. Remains on aspirin, but if platelets drop any lower consider holding. Cont statin. 9. FEN - full liquid diet; bmp in am. 10. DVT proph - SCDs; chemical means contraindicated due to thrombocytopenia. 11. PAD - noted; asa, statin. 12. protein calorie malnutrition, at least moderate - boost TID w/ meals, etc. 13. chronic pain syndrome - cont fentanyl patch but increase to 62mcg q72h along w/ bowel regimen. Dilaudid prn. PT, OT evals due to deconditioning/weakness updated today at bedside; questions answered Continued [facility] stay due to: inadequate po fluid intake, inadequate oral pain control, multiple IV medications needed Discharge planning: home
[2017-11-16] MEDS: DOCUSATE SODIUM/SENNA 50/8.6MG TAB PO SCH ×2 (08:00→21:02)
[2017-11-16 08:11] LABS: HEMATOCRIT 28.8 % (42-52); HEMOGLOBIN 10.1 g/dL (14.0-18.0); MEAN CELL VOLUME 89.4 fL (80-100); MEAN CORPUSCULAR HEMOGLOBIN 31.4 pg (25-34); MEAN CORPUSCULAR HGB CONC 35.1 g/dl (32-36); RED CELL DISTRIBUTION WIDTH CV 18.7 % (11.5-14.5); RED CELL DISTRIBUTION WIDTH SD 60.6 fL (36.4-46.3); WHITE BLOOD COUNT 2.61 K/uL (4.8-10.8)
[2017-11-16] MEDS: ASPIRIN 81 MG ECTAB PO SCH (08:25)
[2017-11-16] MEDS: DULOXETINE (CYMBALTA) 30 MG CAP PO SCH ×2 (08:25→21:02)
[2017-11-16] MEDS: PRAVASTATIN SOD 40 MG TAB PO SCH (08:25)
[2017-11-16] MEDS: GABAPENTIN 100 MG CAP PO SCH ×3 (08:26→21:02)
[2017-11-16] MEDS: DEXAMETHASONE CONC SOLN 3.75 MG, NYSTATIN SUSP 30 ML, DiphenhydrAMINE HCL SYRUP 300 MG,... PO SCH ×20 (08:30→21:02)
[2017-11-16] MEDS: LIDOCAINE HCL 2% VISC SOLN 20 ML UDC MT PRN ×4 (08:30→21:04)
[2017-11-16] MEDS: BOOST VANILLA PO SCH ×3 (08:31→17:30)
[2017-11-16] MEDS: PANTOprazole INJ 40 MG in SYRINGE 0 ML IV SCH ×2 (08:32→21:01)
[2017-11-16 08:33] LABS: CALCIUM 7.9 mg/dl (8.5-10.1); CREATININE 0.67 mg/dl (0.60-1.40); POTASSIUM 3.5 mmol/L (3.5-5.1)
[2017-11-16] MEDS: LIDODERM (LIDOCAINE) PATCH 5% TD SCH (08:37)
[2017-11-16] MEDS: CHECK FENTANYL PATCH PLACEMENT SCH ×6 (08:39→23:55)
[2017-11-16] MEDS: FENTANYL PATCH REMOVE & WASTE SCH (08:44)
[2017-11-16] MEDS: FENTANYL 50 MCG/HR TDSY TD SCH (08:45)
[2017-11-16 09:09] LABS: MEAN PLATELET VOLUME 9.4 fL (7.4-10.4); PLATELET COUNT 89 K/uL (130-400)
[2017-11-16 09:10] LABS: BASO % 0.4 %; BASO ABS # 0.01 K/uL (0-0.2); EOS % 6.1 %; EOS ABS # 0.16 K/uL (0-0.5); IG# 0.01 K/uL (0.00-0.02); LYMPH % 20.3 %; LYMPH ABS # 0.53 K/uL (1.2-3.4); MONO % 15.3 %; NEUT % 57.5 %
[2017-11-16] MEDS: FILGRASTIM 480 MCG/1.6 ML VIAL SC SCH (10:10)
[2017-11-16] MEDS ORDERED: NURSING VERBAL MED ORDER ONE (10:15)
[2017-11-16 11:05] VITALS: BP 117/76; PULSE 101; TEMP 36.4; O2SAT 97
[2017-11-16] MEDS: LEVOFLOXACIN / D5W 750 MG in PREMIXED IN D5W 150 ML IV SCH (11:45)
--- NOTE | 2017-11-16 13:01 | HEME/ONC PROGRESS NOTE ---
DATE: 11/16/2017 DIAGNOSES: 1. Left lower lobe pneumonia. 2. Radiation-induced esophagitis. 3. Multiple myeloma. 4. Intractable bony pain attributable to multiple myeloma. 5. Status post palliative radiation therapy to thoracic spine. 6. Cytopenias attributable to current chemotherapy. SUBJECTIVE: I visited with Mr. Anders again at bedside. He recently completed 10 fractions of palliative radiation therapy to the thoracic spine. Unfortunately, he has developed dysphagia. I suspect radiation-induced esophagitis and hopefully over time will heal. His most recent chest x-ray suggests a small infiltrate in the left lower lobe and he is currently being treated for pneumonia. He is due to receive Velcade on Friday and will consider resuming treatment if he is progressing satisfactorily from a clinical perspective. Fortunately, his p.o. intake is not very good at this point, but again anticipate improvement over time. He offers no complaints other than esophageal pain. PHYSICAL EXAM: GENERAL: He is in no acute distress. VITAL SIGNS: Temperature 36.4, pulse 101, respiratory rate 18, blood pressure 117/76. SKIN: Without rash or lesion. HEENT: Oral mucosa without erythema or ulceration. NECK: Supple. HEART: Regular rate and rhythm. LUNGS: Clear to auscultation bilaterally. ABDOMEN: Soft, nontender, nondistended without palpable hepatosplenomegaly. EXTREMITIES: No calf tenderness or swelling. No clubbing, cyanosis or edema. NEUROLOGIC: Grossly intact. LABORATORY DATA: WBC count 2610, hemoglobin 10.1, platelet count 89,000. Sodium 134, potassium 3.5, chloride 102, carbon dioxide 28, BUN 10, creatinine 0.67. IMPRESSION: 1. Left lower lobe pneumonia. 2. Radiation-induced esophagitis. 3. Multiple myeloma. 4. Intractable bony pain attributable to myeloma. 5. Status post palliative radiation therapy to thoracic spine. 6. Pancytopenia attributable to chemotherapy. PLAN: Unfortunately, there is little to do with Mr. Anders and just allow more time for healing. Continue Magic Mouthwash and low-dose opioid analgesia as effective for pain control. Continue antibiotics for pneumonia. We will have to decide based on his improvement on Friday whether to continue with Velcade or hold until medically stable.
[2017-11-16 14:47] VITALS: BP 99/68; PULSE 105; TEMP 36.4; O2SAT 98
[2017-11-16] MEDS: OXYCODONE HCL IR 5 MG TAB (IMMEDIATE RELEASE) PO PRN (17:45)
[2017-11-16 19:50] VITALS: BP 101/68; PULSE 104; TEMP 36.7; O2SAT 92
--- NOTE | 2017-11-16 21:27 | Progress Note ---
Subjective Date of Service: Nov 16, 2017. Subjective Pt evaluation today including: conversation w/ patient, conversation w/ family (, mother - at bedside), physical exam, chart review, lab review, review of inpatient medication list Pain: odynophagia, back PO Intake: minimal clear liquid intake Voiding: no voiding problems very weak and tired still no improvement in swallowing minimal cough only mild XIAO we discussed the possibility of counseling as an outpatient for his depression he teared up while we talked about the issue he keeps to himself per his , but they both agreed they might pursue pastoral counseling he did go outside yesterday for an hour to catch some sun and enjoyed it Problem List Medical Problems: (1) Dehydration Status: Acute (2) Dehydration Status: Acute (3) Difficulty swallowing Status: Acute (4) Pneumonia Status: Acute (5) Rib pain on right side Status: Acute Review of Systems Constitutional: + sweats (at night especially), No fever, No chills Respiratory: + cough, + dyspnea on exertion, No sputum, No wheezing, No dyspnea at rest, No hemoptysis Cardiac: No chest pain, No orthopnea, No PND, No edema Abdomen: No pain, No nausea, No vomiting, No diarrhea Psychiatric: + depression symptoms Objective Vital Signs Date Time Temp Pulse Resp B/P (MAP) Pulse Ox O2 Delivery O2 Flow Rate FiO2 11/16/17 19:50 36.7 104 20 101/68 (79) 92 Room Air 11/16/17 16:33 Room Air 11/16/17 14:47 36.4 105 18 99/68 (78) 98 Room Air 11/16/17 11:05 36.4 101 18 117/76 (90) 97 Room Air 11/16/17 09:00 Room Air 11/16/17 07:29 36.8 94 18 102/70 (81) 92 Room Air 11/16/17 04:25 36.5 108 20 107/70 (82) 98 Room Air 11/16/17 00:00 Room Air 11/15/17 23:23 36.8 103 20 116/77 (90) 94 Room Air Physical Exam General Appearance: no apparent distress, + pertinent finding (flat affect) ENT: pharynx normal (no thrush, no mucositis) Neck: no JVD Respiratory/Chest: no respiratory distress, no accessory muscle use, + crackles (minimal - left base; o/w CTA b/l ) Cardiovascular: no gallop, + tachycardia, + systolic murmur (1/6 LLSB) Abdomen: normal bowel sounds, non tender, soft, no organomegaly, + distended ( mild) Extremities: no pedal edema Neurologic/Psychiatric: no motor/sensory deficits (of LEs), alert, oriented x 3 , + depressed affect Skin: no rash Laboratory Results Last 24 Hours Test 11/16/17 07:52 White Blood Count 2.61 K/uL Red Blood Count 3.22 M/uL Hemoglobin 10.1 g/dL Hematocrit 28.8 % Mean Corpuscular Volume 89.4 fL Mean Corpuscular Hemoglobin 31.4 pg Mean Corpuscular Hemoglobin Concent 35.1 g/dl Platelet Count 89 K/uL Mean Platelet Volume 9.4 fL Neutrophils (%) (Auto) 57.5 % Lymphocytes (%) (Auto) 20.3 % Monocytes (%) (Auto) 15.3 % Eosinophils (%) (Auto) 6.1 % Basophils (%) (Auto) 0.4 % Neutrophils # (Auto) 1.50 K/uL Lymphocytes # (Auto) 0.53 K/uL Monocytes # (Auto) 0.40 K/uL Eosinophils # (Auto) 0.16 K/uL Basophils # (Auto) 0.01 K/uL RDW Standard Deviation 60.6 fL RDW Coefficient of Variation 18.7 % Immature Granulocyte % (Auto) 0.4 % Immature Granulocyte # (Auto) 0.01 K/uL Toxic Granulation 3+ Toxic Vacuolation 2+ Dohle Bodies 1+ Giant Platelets 1+ Tear Drop Cells 1+ Sodium Level 134 mmol/L Potassium Level 3.5 mmol/L Chloride Level 102 mmol/L Carbon Dioxide Level 28 mmol/L Anion Gap 5.0 mmol/L Blood Urea Nitrogen 10 mg/dl Creatinine 0.67 mg/dl Est Creatinine Clear Calc Drug Dose 118.8 ml/min Estimated GFR () 121.9 Estimated GFR (Non- 105.2 BUN/Creatinine Ratio 14.5 Random Glucose 106 mg/dl Calcium Level 7.9 mg/dl Magnesium Level 1.9 mg/dl Assessment and Plan 57yo male - 1. odynophagia/dysphagia - suspected to be from xrt esophagitis. No significant improvement despite time & supportive care, PPI, etc. Cannot exclude candidal esophagitis but less likely. Cannot exclude, in light of immunocompromised status, CMV or HSV esophagitis. EGD deferred due to neutropenia but since ANC is now normal perhaps GI would consider such tomorrow. Will make NPO after MN tonight, give IVF, and I will speak with GI in am about possible EGD. Cont clear liquids or full liquids. Cont boost for protein/fat calories. Cont dilaudid PRN for breakthrough pain. Cont PPI BID, carafate, viscous lidocaine, etc. Appreciate GI consultation. 2. multiple myeloma - remains on velcade, revlimid, and decadron (pulsed). Has pancytopenia presumably due to his MM and/or his chemotherapy agents. Appreciate heme/onc consultation. In light of fever/pneumonia daily neupogen ordered. ANC now 1500. Neupogen placed on hold today. Daily CBC. Checked b12/folate to be complete - stores adequate. 3. chronic systolic CHF, EF 40-45% - based on previous echo - euvolemic at this time. BP too low for beta daksha. 4. chemotherapy induced pancytopenia - stable, H/H improved s/p PRBCs. 5. 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 Leg strength intact. PT, OT evals appreciated. 6. neutropenia - resolved w/ neupogen. CBC again in am. 7. left-sided pneumonia - cont levaquin and cefepime. Covering for possibility of gram negative etiology. Aspiration possible too. Blood cx's thus far negative. MRSA swab negative thus defer on MRSA coverage. Clinically stable. Day # 5 of IV abx. 8. CAD - no ischemic symptoms at this time. Remains on aspirin, but if platelets drop any lower consider holding. Cont statin. 9. FEN - full liquid diet; bmp in am. 10. DVT proph - SCDs; chemical means contraindicated due to thrombocytopenia. 11. PAD - noted; asa, statin. 12. protein calorie malnutrition, at least moderate - boost TID w/ meals, etc. 13. chronic pain syndrome - cont fentanyl patch 62mcg q72h along w/ bowel regimen. Dilaudid prn. Fentanyl increased on 11/15/17. 14. depression - cymbalta increased this admission to 30mg BID. encouraged him to seek out counseling after discharge. /mother updated at bedside today Continued [facility] stay due to: inadequate po fluid intake, inadequate oral pain control, ambulation difficulties, multiple IV medications needed Discharge planning: home with home health
[2017-11-16 23:28] VITALS: BP 103/67; PULSE 94; TEMP 36.7; O2SAT 93
[2017-11-16] MEDS: D5NSS + 20MEQ KCL 1,000 ML IV SCH (23:53)
[2017-11-17] MEDS: CEFEPIME IV 2,000 MG in SYRINGE 7.5 ML IV SCH ×3 (02:41→17:58)
[2017-11-17 04:20] VITALS: BP 114/77; PULSE 92; TEMP 36.6; O2SAT 94
[2017-11-17 06:01] LABS: HEMATOCRIT 27.5 % (42-52); HEMOGLOBIN 9.6 g/dL (14.0-18.0); MEAN CELL VOLUME 90.5 fL (80-100); MEAN CORPUSCULAR HEMOGLOBIN 31.6 pg (25-34); MEAN CORPUSCULAR HGB CONC 34.9 g/dl (32-36); MEAN PLATELET VOLUME 9.7 fL (7.4-10.4); PLATELET COUNT 110 K/uL (130-400); RED CELL DISTRIBUTION WIDTH CV 18.7 % (11.5-14.5); RED CELL DISTRIBUTION WIDTH SD 61.1 fL (36.4-46.3); WHITE BLOOD COUNT 2.97 K/uL (4.8-10.8)
[2017-11-17 06:25] LABS: BASO % 0.3 %; BASO ABS # 0.01 K/uL (0-0.2); EOS % 5.7 %; EOS ABS # 0.17 K/uL (0-0.5); IG# 0.01 K/uL (0.00-0.02); LYMPH % 19.5 %; LYMPH ABS # 0.58 K/uL (1.2-3.4); MONO % 10.8 %; MONO ABS # 0.32 K/uL (0.11-0.59); NEUT % 63.4 %; NEUT ABS # 1.88 K/uL (1.4-6.5)
[2017-11-17 06:38] LABS: CREATININE 0.59 mg/dl (0.60-1.40); POTASSIUM 3.5 mmol/L (3.5-5.1)
[2017-11-17] MEDS: SUCRALFATE 1 GM/10 ML UDC PO SCH ×4 (06:48→20:10)
[2017-11-17 07:10] VITALS: Ht 175.3 cm; Wt 75.0 kg
[2017-11-17 07:12] VITALS: BP 114/74; PULSE 93; TEMP 36.6; O2SAT 95
[2017-11-17] MEDS: ASPIRIN 81 MG ECTAB PO SCH ×2 (08:00→13:56)
[2017-11-17] MEDS: PANTOprazole INJ 40 MG in SYRINGE 0 ML IV SCH ×2 (08:41→20:09)
[2017-11-17] MEDS: GABAPENTIN 100 MG CAP PO SCH ×3 (08:41→20:09)
[2017-11-17] MEDS: DOCUSATE SODIUM/SENNA 50/8.6MG TAB PO SCH ×2 (08:42→20:09)
[2017-11-17] MEDS: DULOXETINE (CYMBALTA) 30 MG CAP PO SCH ×2 (08:42→20:09)
[2017-11-17] MEDS: PRAVASTATIN SOD 40 MG TAB PO SCH (08:42)
[2017-11-17] MEDS: LIDODERM (LIDOCAINE) PATCH 5% TD SCH (08:42)
[2017-11-17] MEDS: BOOST VANILLA PO SCH ×4 (08:43→16:41)
[2017-11-17] MEDS: CHECK FENTANYL PATCH PLACEMENT SCH ×4 (08:43→16:00)
[2017-11-17] MEDS: DEXAMETHASONE CONC SOLN 3.75 MG, NYSTATIN SUSP 30 ML, DiphenhydrAMINE HCL SYRUP 300 MG,... PO SCH ×20 (08:43→20:08)
[2017-11-17] MEDS: HYDROmorphone INJ 2 MG/ML SYR/VIAL IV PRN ×2 (08:51→22:22)
[2017-11-17] MEDS: LIDOCAINE HCL 2% VISC SOLN 20 ML UDC MT PRN ×3 (08:56→20:08)
--- NOTE | 2017-11-17 10:02 | Gastroenterology Progress Note ---
Progress Note Date of Service: Nov 17, 2017 Subjective Pt evaluation today including: conversation w/ patient, physical exam, chart review, lab review Pt was seen and evaluated, chart reviewed. No acute events noted over the weekend. Did have persistent dysphagia, odynophagia w/ poor intake over the weekend. Notes he had a cream based soup which felt food. Was given tomato soup last evening which he could not tolerate. No dysphagia w/ liquids but does report odynophagia. No fever, chills, CP, SOB. Review of Systems Constitutional: No fever, No chills Respiratory: No cough, No shortness of breath Cardiac: No chest pain, No edema Abdomen: + dysphagia (not to liquids), + odynophagia, No pain, No nausea, No vomiting, No diarrhea, No constipation, No GI bleeding Medications Current Inpatient Medications Medications (Trade) Dose Ordered Sig/Malik Route Start Time Stop Time Status Last Admin Dose Admin Acetaminophen (Tylenol Tab) 650 mg Q4H PRN PO 11/12/17 14:00 12/12/17 13:59 Al Hydrox/Mg Hydrox/Simethicone (Maalox Max Susp) 15 ml Q4H PRN PO 11/12/17 14:00 12/12/17 13:59 Magnesium Hydroxide (Milk Of Magnesia Susp) 30 ml Q6H PRN PO 11/12/17 14:00 12/12/17 13:59 Polyethylene (Miralax Powder Packet) 17 gm DAILY PRN PO 11/12/17 14:00 12/12/17 13:59 Ondansetron HCl (Zofran Inj) 4 mg Q6H PRN IV 11/12/17 14:00 12/12/17 13:59 Pantoprazole Sodium 40 mg/ Syringe 10 ml @ 5 mls/min DAILY@09,21 IV 11/12/17 16:00 12/12/17 15:59 11/17/17 08:41 5 MLS/MIN Aspirin (Ecotrin Tab) 81 mg DAILY PO 11/13/17 08:00 12/13/17 08:59 11/16/17 08:25 81 MG Fentanyl (Duragesic Patch) 50 mcg Q72H TD 11/13/17 09:00 11/27/17 08:59 11/16/17 08:45 50 MCG Gabapentin (Neurontin Cap) 100 mg TID PO 11/12/17 14:00 12/12/17 13:59 11/17/17 08:41 100 MG Lidocaine (Lidoderm Patch 5%) 1 patch DAILY TD 11/13/17 08:00 12/13/17 08:59 11/17/17 08:42 1 PATCH Senna/Docusate Sodium (Senokot S Tab) 1 tab BID PO 11/12/17 20:00 12/12/17 20:59 11/17/17 08:42 1 TAB Oxycodone HCl (Roxicodone Immediate Rel Tab) 10 mg Q4H PRN PO 11/12/17 14:00 12/12/17 13:59 11/16/17 17:45 10 MG Pravastatin Sodium (Pravachol Tab) 80 mg DAILY PO 11/13/17 08:00 12/13/17 08:59 11/17/17 08:42 80 MG Miscellaneous (Remove Lidoderm Patch) 1 ea DAILY@21 N/A 11/12/17 21:00 12/12/17 20:59 11/16/17 21:10 1 EA Lidocaine HCl (Viscous Lidocaine 2% Soln) 20 ml Q3H PRN MT 11/12/17 14:00 12/12/17 13:59 11/17/17 08:56 20 ML Levofloxacin 750 mg/Prmx 150 ml @ 100 mls/hr Q24H IV 11/13/17 11:00 11/18/17 12:29 11/16/17 11:45 100 MLS/HR Miscellaneous (Iv Fluids Completed) 1 ea PRN PRN N/A 11/12/17 14:45 11/12/18 14:44 Dexamethasone/ Nystatin/ Diphenhydramine HCl/Sucrose/ Microcrystalline Cellulose/Barcode QID PO 11/12/17 17:00 12/12/17 16:59 11/17/17 08:43 5 ML Miscellaneous (Fentanyl Patch Remove & Waste) 1 ea Q3D@0859 N/A 11/13/17 08:59 12/13/17 08:58 11/16/17 08:44 1 EA Miscellaneous Information (Check Fentanyl Patch Placement) 1 ea QS N/A 11/12/17 16:00 12/12/17 15:59 11/17/17 08:44 1 EA Hydromorphone HCl (Dilaudid Inj) 1 mg Q3H PRN IV 11/13/17 08:15 11/27/17 08:14 11/17/17 08:51 1 MG Sucralfate (Carafate Susp) 1 gm ACHS PO 11/13/17 12:30 12/13/17 12:29 11/17/17 06:48 1 GM Cefepime HCl 2000 mg/Syringe 20 ml @ 5 mls/min Q8H IV 11/14/17 10:00 11/21/17 08:59 11/17/17 02:41 5 MLS/MIN Filgrastim (Neupogen Sq) 480 mcg DAILY SC 11/14/17 09:30 12/14/17 09:29 Future Hold 11/15/17 08:39 480 MCG Enteral Nutritional Formula (Boost) 1 can TIDM PO 11/14/17 12:00 12/14/17 11:59 11/16/17 17:30 1 CAN Duloxetine HCl (Cymbalta Cap) 30 mg BID PO 11/14/17 20:00 12/13/17 08:59 11/17/17 08:42 30 MG Fentanyl (Duragesic Patch) 12 mcg Q72H TD 11/15/17 19:00 11/29/17 18:59 11/15/17 19:24 12 MCG Miscellaneous (Fentanyl Patch Remove & Waste) 1 ea Q72H N/A 11/18/17 18:59 12/18/17 18:58 Miscellaneous Information (Check Fentanyl Patch Placement) 1 ea QS N/A 11/16/17 00:00 12/16/17 00:00 11/17/17 08:43 1 EA Potassium Chloride/Dextrose/ Sod Cl 1,000 ml @ 75 mls/hr [id number] IV 11/17/17 00:00 12/17/17 00:00 11/16/17 23:53 75 MLS/HR Objective Vital Signs Date Time Temp Pulse Resp B/P (MAP) Pulse Ox O2 Delivery O2 Flow Rate FiO2 11/17/17 08:45 Room Air 11/17/17 07:12 36.6 93 16 114/74 (87) 95 11/17/17 04:20 36.6 92 20 114/77 (89) 94 Room Air 11/17/17 00:00 Room Air 11/16/17 23:28 36.7 94 20 103/67 (79) 93 Room Air 11/16/17 20:00 Room Air 11/16/17 19:50 36.7 104 20 101/68 (79) 92 Room Air 11/16/17 16:33 Room Air 11/16/17 14:47 36.4 105 18 99/68 (78) 98 Room Air 11/16/17 11:05 36.4 101 18 117/76 (90) 97 Room Air Physical Exam General Appearance: no apparent distress Eyes: PERRL ENT: hearing grossly normal Neck: supple, trachea midline Respiratory/Chest: lungs clear, normal breath sounds, no respiratory distress, no accessory muscle use Cardiovascular: regular rate, rhythm, no gallop, no JVD, no murmur Abdomen: normal bowel sounds, non tender, soft, no organomegaly Neurologic/Psych: alert, normal mood/affect, oriented x 3 Skin: normal color Laboratory Results Last 24 Hours Test 11/17/17 05:25 White Blood Count 2.97 K/uL Red Blood Count 3.04 M/uL Hemoglobin 9.6 g/dL Hematocrit 27.5 % Mean Corpuscular Volume 90.5 fL Mean Corpuscular Hemoglobin 31.6 pg Mean Corpuscular Hemoglobin Concent 34.9 g/dl Platelet Count 110 K/uL Mean Platelet Volume 9.7 fL Neutrophils (%) (Auto) 63.4 % Lymphocytes (%) (Auto) 19.5 % Monocytes (%) (Auto) 10.8 % Eosinophils (%) (Auto) 5.7 % Basophils (%) (Auto) 0.3 % Neutrophils # (Auto) 1.88 K/uL Lymphocytes # (Auto) 0.58 K/uL Monocytes # (Auto) 0.32 K/uL Eosinophils # (Auto) 0.17 K/uL Basophils # (Auto) 0.01 K/uL RDW Standard Deviation 61.1 fL RDW Coefficient of Variation 18.7 % Immature Granulocyte % (Auto) 0.3 % Immature Granulocyte # (Auto) 0.01 K/uL Toxic Granulation 2+ Toxic Vacuolation 1+ Large Platelets 1+ Tear Drop Cells 1+ Sodium Level 135 mmol/L Potassium Level 3.5 mmol/L Chloride Level 102 mmol/L Carbon Dioxide Level 28 mmol/L Anion Gap 5.0 mmol/L Blood Urea Nitrogen 9 mg/dl Creatinine 0.59 mg/dl Est Creatinine Clear Calc Drug Dose 134.9 ml/min Estimated GFR () 128.4 Estimated GFR (Non- 110.8 BUN/Creatinine Ratio 15.9 Random Glucose 120 mg/dl Calcium Level 8.0 mg/dl Assessment and Plan 57 y/o male history of multiple myeloma on decadron, Velcade, Revlimid wit history of radiation therapy x 10 treatments per pt admitted with dysphagia, odynophagia. No evidence of oral yeast on exam. Theodora esophagitis vs radiation esophagitis vs others. Notes little improvement with therapy outlines below - tolerated water and broth this AM but reports severe odynophagia still requiring IV pain medication. Endoscopy was deferred due to neutropenia IV Protonix BID Liquid Carafate QID Magic mouth wash QID NPO after midnight Tentative plan for EGD 11/18/17 GI to follow, please call with any questions or concerns Attg add: I interviewed and examined pt, reviewed chart and labs. Pt with persistent odynophagia. Agree with EGD r/o infectious esophagitis.
[2017-11-17] MEDS: LEVOFLOXACIN / D5W 750 MG in PREMIXED IN D5W 150 ML IV SCH (10:16)
[2017-11-17 11:56] VITALS: BP 107/71; PULSE 112; TEMP 36.6; O2SAT 95
[2017-11-17] MEDS: D5NSS + 20MEQ KCL 1,000 ML IV SCH (11:57)
[2017-11-17] MEDS: OXYCODONE HCL IR 5 MG TAB (IMMEDIATE RELEASE) PO PRN (12:01)
[2017-11-17 15:32] VITALS: BP 109/70; PULSE 112; TEMP 36.7; O2SAT 95
[2017-11-17 20:39] VITALS: BP 107/66; PULSE 114; TEMP 36.9; O2SAT 96
--- NOTE | 2017-11-17 21:05 | Progress Note ---
Subjective Date of Service: Nov 17, 2017. Subjective Pt evaluation today including: conversation w/ patient, conversation w/ family ( at bedside), physical exam, chart review, lab review, conversation w/ solutions delivery consultant (GI) Pain: odynophagia only PO Intake: poor, but able to drink some boost Voiding: no voiding problems no events overnight no emesis/nausea odynophagia unchanged no BM today but had small one last night no dyspnea actually smiled during the visit today! EGD in am per GI Problem List Medical Problems: (1) Dehydration Status: Acute (2) Dehydration Status: Acute (3) Difficulty swallowing Status: Acute (4) Pneumonia Status: Acute (5) Rib pain on right side Status: Acute Review of Systems Constitutional: No fever, No chills Respiratory: No cough, No shortness of breath, No dyspnea on exertion Cardiac: No chest pain, No orthopnea, No PND, No edema Abdomen: No pain, No nausea, No vomiting, No diarrhea, No GI bleeding Objective Vital Signs Date Time Temp Pulse Resp B/P (MAP) Pulse Ox O2 Delivery O2 Flow Rate FiO2 11/17/17 20:39 36.9 114 18 107/66 (80) 96 Room Air 11/17/17 16:00 Room Air 11/17/17 15:32 36.7 112 18 109/70 (83) 95 Room Air 11/17/17 11:56 36.6 112 16 107/71 (83) 95 Room Air 11/17/17 08:45 Room Air 11/17/17 07:12 36.6 93 16 114/74 (87) 95 11/17/17 04:20 36.6 92 20 114/77 (89) 94 Room Air 11/17/17 00:00 Room Air 11/16/17 23:28 36.7 94 20 103/67 (79) 93 Room Air Physical Exam General Appearance: no apparent distress, + pertinent finding (looks a bit better today) ENT: pharynx normal (no thrush, no mucositis, MMM) Neck: no JVD Respiratory/Chest: lungs clear, no respiratory distress, no accessory muscle use, + rales (scant LLL) Cardiovascular: no gallop, + tachycardia, + systolic murmur (2/6 LSB) Abdomen: normal bowel sounds, non tender, soft, no organomegaly, + distended ( mild) Extremities: no pedal edema Neurologic/Psychiatric: alert, oriented x 3, + depressed affect Laboratory Results Last 24 Hours Test 11/17/17 05:25 White Blood Count 2.97 K/uL Red Blood Count 3.04 M/uL Hemoglobin 9.6 g/dL Hematocrit 27.5 % Mean Corpuscular Volume 90.5 fL Mean Corpuscular Hemoglobin 31.6 pg Mean Corpuscular Hemoglobin Concent 34.9 g/dl Platelet Count 110 K/uL Mean Platelet Volume 9.7 fL Neutrophils (%) (Auto) 63.4 % Lymphocytes (%) (Auto) 19.5 % Monocytes (%) (Auto) 10.8 % Eosinophils (%) (Auto) 5.7 % Basophils (%) (Auto) 0.3 % Neutrophils # (Auto) 1.88 K/uL Lymphocytes # (Auto) 0.58 K/uL Monocytes # (Auto) 0.32 K/uL Eosinophils # (Auto) 0.17 K/uL Basophils # (Auto) 0.01 K/uL RDW Standard Deviation 61.1 fL RDW Coefficient of Variation 18.7 % Immature Granulocyte % (Auto) 0.3 % Immature Granulocyte # (Auto) 0.01 K/uL Toxic Granulation 2+ Toxic Vacuolation 1+ Large Platelets 1+ Tear Drop Cells 1+ Sodium Level 135 mmol/L Potassium Level 3.5 mmol/L Chloride Level 102 mmol/L Carbon Dioxide Level 28 mmol/L Anion Gap 5.0 mmol/L Blood Urea Nitrogen 9 mg/dl Creatinine 0.59 mg/dl Est Creatinine Clear Calc Drug Dose 134.9 ml/min Estimated GFR () 128.4 Estimated GFR (Non- 110.8 BUN/Creatinine Ratio 15.9 Random Glucose 120 mg/dl Calcium Level 8.0 mg/dl Assessment and Plan 57yo male - 1. odynophagia/dysphagia - suspected to be from xrt esophagitis. No significant improvement despite time & supportive care, PPI, etc. Cannot exclude candidal esophagitis but less likely. Cannot exclude, in light of immunocompromised status, CMV or HSV esophagitis. Cont clear liquids or limited amount of full liquids. Cont boost for protein/fat calories. Cont dilaudid PRN for breakthrough pain. Cont PPI BID, carafate, viscous lidocaine, etc. Appreciate GI consultation. Plan - EGD Friday; NPO after MN; gentle IVF in meantime. 2. multiple myeloma - on velcade, revlimid, and decadron (pulsed). Has resolving pancytopenia due to his chemotherapy agents. Appreciate heme/onc consultation. Neutropenia now resolved s/p neupogen. Daily CBC. Checked b12/folate to be complete - stores adequate. 3. chronic systolic CHF, EF 40-45% - based on previous echo - euvolemic at this time. BP too low for beta daksha but consider such in future. 4. chemotherapy induced pancytopenia - improving cell lines. s/p 2 units PRBCs this admission. 5. 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 Leg strength intact. PT, OT evals appreciated. Should be able to return home at d/c. 6. neutropenia - resolved w/ neupogen. CBC again in am for stability. 7. left-sided pneumonia - cont levaquin and cefepime. Covering for possibility of gram negative etiology. Aspiration possible too. Blood cx's thus negative. MRSA swab negative thus defer on MRSA coverage. Clinically stable. Day # 6 of IV abx. Once taking PO reliably can narrow to levaquin to finish his course. 8. CAD - no ischemic symptoms at this time. Hold aspirin due to #1. Resume when able. Cont statin. would benefit from BB if BP allows. 9. FEN - full liquid diet; bmp in am. GENTLE fluids in light of CHF history. 10. DVT proph - SCDs; would start lovenox following EGD and if platelets are stable on CBC tomorrow. 11. PAD - noted. 12. protein calorie malnutrition, at least moderate - boost TID w/ meals, etc. 13. chronic pain syndrome - cont fentanyl patch 62mcg q72h along w/ bowel regimen. Dilaudid prn. Fentanyl increased on 11/15/17. 14. depression - cymbalta increased this admission to 30mg BID. encouraged him to seek out counseling after discharge. 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 15. tachycardia - if this persists, and in light of lack of chemical DVT proph this admission (despite use of SCDs), consider w/u for PE. Follow. updated at bedside today Continued [facility] stay due to: inadequate po fluid intake, inadequate oral pain control, ambulation difficulties, multiple IV medications needed Discharge planning: home with home health
[2017-11-17 23:31] VITALS: BP 111/72; PULSE 99; TEMP 36.9; O2SAT 90
[2017-11-18] VITALS (8 sets, daily range): BP systolic 99–117; BP diastolic 66–77; PULSE 93–106; TEMP 36.5–36.8; O2SAT 90–95
[2017-11-18] MEDS: CHECK FENTANYL PATCH PLACEMENT SCH ×5 (00:23→16:00)
[2017-11-18] MEDS: D5NSS + 20MEQ KCL 1,000 ML IV SCH ×2 (01:32→20:51)
[2017-11-18] MEDS: HYDROmorphone INJ 2 MG/ML SYR/VIAL IV PRN ×2 (02:11→21:01)
[2017-11-18] MEDS: CEFEPIME IV 2,000 MG in SYRINGE 7.5 ML IV SCH ×2 (02:11→09:46)
[2017-11-18] MEDS ORDERED: NURSING VERBAL MED ORDER ONE (04:15)
[2017-11-18 06:15] LABS: BASO % 0.4 %; BASO ABS # 0.01 K/uL (0-0.2); EOS % 8.3 %; EOS ABS # 0.21 K/uL (0-0.5); HEMATOCRIT 29.4 % (42-52); HEMOGLOBIN 10.1 g/dL (14.0-18.0); IG# 0.02 K/uL (0.00-0.02); LYMPH % 20.6 %; LYMPH ABS # 0.52 K/uL (1.2-3.4); MEAN CELL VOLUME 92.2 fL (80-100); MEAN CORPUSCULAR HEMOGLOBIN 31.7 pg (25-34); MEAN CORPUSCULAR HGB CONC 34.4 g/dl (32-36); MEAN PLATELET VOLUME 9.5 fL (7.4-10.4); MONO ABS # 0.38 K/uL (0.11-0.59); NEUT % 54.9 %; NEUT ABS # 1.39 K/uL (1.4-6.5); PLATELET COUNT 129 K/uL (130-400); RED CELL DISTRIBUTION WIDTH CV 18.2 % (11.5-14.5); RED CELL DISTRIBUTION WIDTH SD 61.5 fL (36.4-46.3); WHITE BLOOD COUNT 2.53 K/uL (4.8-10.8)
[2017-11-18] MEDS: SUCRALFATE 1 GM/10 ML UDC PO SCH ×4 (06:21→20:51)
[2017-11-18 06:52] LABS: CALCIUM 8.3 mg/dl (8.5-10.1); CREATININE 0.64 mg/dl (0.60-1.40); POTASSIUM 3.6 mmol/L (3.5-5.1)
[2017-11-18] MEDS: BOOST VANILLA PO SCH ×3 (09:26→17:02)
[2017-11-18] MEDS: OXYCODONE HCL IR 5 MG TAB (IMMEDIATE RELEASE) PO PRN (09:46)
[2017-11-18] MEDS: PANTOprazole INJ 40 MG in SYRINGE 0 ML IV SCH ×2 (09:46→20:51)
[2017-11-18] MEDS: DOCUSATE SODIUM/SENNA 50/8.6MG TAB PO SCH ×2 (09:47→20:00)
[2017-11-18] MEDS: DULOXETINE (CYMBALTA) 30 MG CAP PO SCH ×2 (09:47→20:50)
[2017-11-18] MEDS: PRAVASTATIN SOD 40 MG TAB PO SCH (09:47)
[2017-11-18] MEDS: LIDODERM (LIDOCAINE) PATCH 5% TD SCH (09:48)
[2017-11-18] MEDS: GABAPENTIN 100 MG CAP PO SCH ×3 (09:49→20:51)
[2017-11-18] MEDS: DEXAMETHASONE CONC SOLN 3.75 MG, NYSTATIN SUSP 30 ML, DiphenhydrAMINE HCL SYRUP 300 MG,... PO SCH ×20 (09:52→20:00)
[2017-11-18] MEDS: LEVOFLOXACIN / D5W 750 MG in PREMIXED IN D5W 150 ML IV SCH (11:16)
[2017-11-18] MEDS ORDERED: LIDOCAINE HCL 2% 2 ML VIAL (20MG/ML) ONE (13:18)
[2017-11-18] MEDS ORDERED: FENTANYL CITRATE INJ 50 MCG/1 ML 2 ML VIAL ONE (13:18)
[2017-11-18] MEDS ORDERED: PROPOFOL IV EMULSION 10 MG/ML 20 ML VIAL IV ONE (13:18)
--- NOTE | 2017-11-18 13:23 | Endo History and Physical ---
History & Physical Date of Service: Nov 18, 2017. 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) Hx Thoracic Surgery: No Hx Orthopedic: Yes (2/rods placed in spine for support) Hx Urinary Tract Surgery: No Social History Smoking Status: Former Smoker Hx Substance Use: No Hx Alcohol Use: No Allergies Coded Allergies: Atorvastatin (Verified Adverse Reaction, Unknown, myalgias, 10/16/17) Simvastatin (Verified Adverse Reaction, Unknown, myalgias, 10/16/17) Current Medications Reported Home Medications Medications Dose Route/Sig Max Daily Dose Days Date Category Dose Instructions Decadron (Dexamethasone) 4 Mg Tab 5 Tab PO DIRECTED 11/12/17 Reported TAKES ON TUESDAYS BEFORE CHEMO Duragesic (Fentanyl) 50 Mcg Tdsy 50 Mcg TD [id number] 11/12/17 Reported Lidocaine 1 Patch Tdsy 1 Patch TD DIRECTED 11/12/17 Reported 12 HOURS ON12 HOURS OFF Oxycodone Hcl 10 Mg Tab 10 Mg PO Q4H PRN 11/12/17 Reported Cymbalta (Duloxetine HCl) 30 Mg Cap 30 Mg PO DAILY 11/12/17 Reported Neurontin (Gabapentin) 100 Mg Cap 100 Mg PO TID 11/12/17 Reported Cipro (Ciprofloxacin Hcl) 500 Mg Tab 500 Mg PO Q12 11/12/17 Reported STARTED 11-11-17 Velcade (Bortezomib) 1 Mg/Ml Inj 1 Appln SQ WK 11/03/17 Reported Revlimid (Lenalidomide) 20 Mg Cap 25 Mg PO DAILY 11/03/17 Reported 14 DAYS ON 7 DAYS OFF Vitamin D3 (Cholecalciferol) 1,000 Unit Tab 1 Tab PO DAILY 10/16/17 Reported Pravachol (Pravastatin Sodium) 80 Mg Tab 80 Mg PO DAILY 10/16/17 Reported Docusate Sodium/Senna (Sennosides-Docusate Sodium) 1 Tab Tab 1 Tab PO BID 09/27/17 Reported Garlic 500 Mg Cap 1,000 Mg PO QAM 08/30/17 Reported Fish Oil ([place]-3 Fatty Acids) 1 Cap Cap 1 Cap PO QAM 08/30/17 Reported Aspirin Ec (Aspirin) 81 Mg Tab 81 Mg PO DAILY 08/30/17 Reported Vital Signs Weight (Kilograms): 77.400 Height (Feet): 5 Height (Inches): 9.00 Date Time Temp Pulse Resp B/P (MAP) Pulse Ox O2 Delivery O2 Flow Rate FiO2 11/18/17 12:59 37.1 115 20 109/76 (87) 95 Room Air 11/18/17 12:06 36.7 97 18 105/69 (81) 95 11/18/17 09:30 Room Air 11/18/17 07:09 36.6 93 20 113/71 (85) 91 Room Air 11/18/17 04:08 36.7 94 18 117/77 (90) 92 Room Air 11/18/17 00:05 90 Room Air 11/17/17 23:31 36.9 99 16 111/72 (85) 90 Room Air 11/17/17 20:39 36.9 114 18 107/66 (80) 96 Room Air 11/17/17 16:00 Room Air 11/17/17 15:32 36.7 112 18 109/70 (83) 95 Room Air Physical Exam General Appearance: no apparent distress Respiratory/Chest: Auscultation: breath sounds normal Cardiovascular: Heart Auscultation: RRR Assessment and Plan EGD today
[2017-11-18] MEDS ORDERED: SODIUM CHLORIDE 0.9% 500ML 500 ML IV ONE (13:24)
--- NOTE | 2017-11-18 13:52 | Anesthesiology Progress Note ---
Anesthesia Post Op Note Date & Time Nov 18, 2017 at 13:52 Vital Signs Pain Intensity: 7.0 Vital Signs Past 12 Hours Date Time Temp Pulse Resp B/P (MAP) Pulse Ox O2 Delivery O2 Flow Rate FiO2 11/18/17 13:40 129 24 114/84 (94) 98 Room Air 11/18/17 12:59 37.1 115 20 109/76 (87) 95 Room Air 11/18/17 12:06 36.7 97 18 105/69 (81) 95 11/18/17 09:30 Room Air 11/18/17 07:09 36.6 93 20 113/71 (85) 91 Room Air 11/18/17 04:08 36.7 94 18 117/77 (90) 92 Room Air Notes Mental Status: alert / awake / arousable, participated in evaluation Pt Amnestic to Procedure: Yes Nausea / Vomiting: adequately controlled Pain: adequately controlled Airway Patency, RR, SpO2: stable & adequate BP & HR: stable & adequate Hydration State: stable & adequate Anesthetic Complications: no major complications apparent
--- NOTE | 2017-11-18 13:59 | GI REPORT ---
Procedure Date: 11/18/2017 1:22 PM THIS REPORT HAS BEEN AMENDED Addendum Number: 1 Addendum Date: 11/18/2017 2:00:14 PM Correction to above - discharge pt to floor, not home. Continue supportive care with bland soft diet, antisecretory therapy. Pt is at risk for stricture; consider repeating EGD if dysphagia dose not resolve. Procedure: Upper GI endoscopy Indications: Dysphagia Medicines: See the Anesthesia note for documentation of the administered medications Complications: No immediate complications. Estimated Blood Loss: Estimated blood loss: none. Procedure: Pre-Anesthesia Assessment: - ASA Grade Assessment: IV - A patient with severe systemic disease that is a constant threat to life. After obtaining informed consent, the endoscope was passed under direct vision. Throughout the procedure, the patient's blood pressure, pulse, and oxygen saturations were monitored continuously. The Scope was introduced through the mouth, and advanced to the second part of duodenum. The upper GI endoscopy was accomplished without difficulty. The patient tolerated the procedure well. Findings: There was circumferential granularity of the entire esophagus. There was moderate narrowing of the proximal esophagus, due to esophagitis. There was linear ulceration throughout the mid body of the esophagus. 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 There was a mild ring at the GE junction. There was a small hiatal hernia. The stomach and duodenum were normal. Recommendation: - Discharge patient to home. Mary Burr M.D. Mary Burr MD 11/18/2017 1:59:10 PM This report has been signed electronically. Note Initiated On: 11/18/2017 1:22 PM I attest to the content of the Intraoperative Record and orders documented therein, exceptions below Kateryna Santiago MD 11/18/2017 2:03:26 PM This report has been signed electronically.
--- NOTE | 2017-11-18 15:50 | Hospitalist Progress Note ---
Hospitalist Progress Note Date of Service Nov 18, 2017. (Ilana Molina ., PA-C) Subjective Pt evaluation today including: conversation w/ patient, conversation w/ family ( at bedside), physical exam, chart review, lab review, review of studies, review of inpatient medication list The patient was examined prior to EGD, he was NPO at this time. He complains of throat pain that is exacerbated by swallowing. He states that creamy soups, puddings, Boost is tolerable and can at times feel better swallowing. He notes a dry cough this morning with some wheezing but denies any shortness of breath. The patient denies fevers, chills, sweats, chest pain, palpitations, claudication, shortness of breath, nausea, vomiting, abdominal pain, dysuria, hematuria, urinary retention, paralysis, weakness, numbness and tingling. Additional Comments: See HPI for pertinent positives and negatives. All other systems reviewed and negative. (Ilana Molina ., PA-C) Objective Vital Signs Date Time Temp Pulse Resp B/P (MAP) Pulse Ox O2 Delivery O2 Flow Rate FiO2 11/18/17 14:19 112 20 104/68 (80) 96 Room Air 11/18/17 14:16 93 Nasal Cannula 2 11/18/17 14:16 90 Room Air 11/18/17 14:13 106 20 91/64 (73) 94 Room Air 11/18/17 14:00 115 24 99/62 (74) 94 Nasal Cannula 2 11/18/17 13:55 113 24 98/78 (85) 90 Room Air 11/18/17 13:55 95 Nasal Cannula 2 11/18/17 13:40 129 24 114/84 (94) 98 Room Air 11/18/17 12:59 37.1 115 20 109/76 (87) 95 Room Air 11/18/17 12:06 36.7 97 18 105/69 (81) 95 11/18/17 09:30 Room Air 11/18/17 07:09 36.6 93 20 113/71 (85) 91 Room Air 11/18/17 04:08 36.7 94 18 117/77 (90) 92 Room Air 11/18/17 00:05 90 Room Air 11/17/17 23:31 36.9 99 16 111/72 (85) 90 Room Air 11/17/17 20:39 36.9 114 18 107/66 (80) 96 Room Air 11/17/17 16:00 Room Air (Ilana Molina ., MALLORIE-C) Physical Exam Notes: General appearance: Well-developed, well-nourished, no apparent distress Head: Normocephalic, atraumatic Eyes: Normal inspection, PERRL, EOMI ENT: Normal ENT inspection, hearing grossly normal, pharynx normal Neck: Supple, no JVD, trachea midline Respiratory/Chest: +Decreased breath sounds. Lungs clear to auscultation, no respiratory distress Cardiovascular: Regular rate & rhythm, no gallop, no murmur Abdomen/GI: Normal bowel sounds, non-tender, soft Extremities/Musculoskeletal: Normal inspection, no calf tenderness, no pedal edema Neurological/Psych: +Flat affect. Alert, oriented x 3 Skin: Normal color, warm/dry, no rash (Ilana Molina ., PA-C) Laboratory Results Last 24 Hours Test 11/18/17 05:42 White Blood Count 2.53 K/uL Red Blood Count 3.19 M/uL Hemoglobin 10.1 g/dL Hematocrit 29.4 % Mean Corpuscular Volume 92.2 fL Mean Corpuscular Hemoglobin 31.7 pg Mean Corpuscular Hemoglobin Concent 34.4 g/dl Platelet Count 129 K/uL Mean Platelet Volume 9.5 fL Neutrophils (%) (Auto) 54.9 % Lymphocytes (%) (Auto) 20.6 % Monocytes (%) (Auto) 15.0 % Eosinophils (%) (Auto) 8.3 % Basophils (%) (Auto) 0.4 % Neutrophils # (Auto) 1.39 K/uL Lymphocytes # (Auto) 0.52 K/uL Monocytes # (Auto) 0.38 K/uL Eosinophils # (Auto) 0.21 K/uL Basophils # (Auto) 0.01 K/uL RDW Standard Deviation 61.5 fL RDW Coefficient of Variation 18.2 % Immature Granulocyte % (Auto) 0.8 % Immature Granulocyte # (Auto) 0.02 K/uL Sodium Level 133 mmol/L Potassium Level 3.6 mmol/L Chloride Level 102 mmol/L Carbon Dioxide Level 28 mmol/L Anion Gap 3.0 mmol/L Blood Urea Nitrogen 8 mg/dl Creatinine 0.64 mg/dl Est Creatinine Clear Calc Drug Dose 124.3 ml/min Estimated GFR () 124.2 Estimated GFR (Non- 107.2 BUN/Creatinine Ratio 12.3 Random Glucose 94 mg/dl Calcium Level 8.3 mg/dl (Ilana Molina PA-C) Diagnostic Results Procedure Date: 11/18/2017 1:22 PM THIS REPORT HAS BEEN AMENDED Addendum Number: 1 Addendum Date: 11/18/2017 2:00:14 PM Correction to above - discharge pt to floor, not home. Continue supportive care with bland soft diet, antisecretory therapy. Pt is at risk for stricture; consider repeating EGD if dysphagia dose not resolve. Procedure: Upper GI endoscopy Indications: Dysphagia Medicines: See the Anesthesia note for documentation of the administered medications Complications: No immediate complications. Estimated Blood Loss: Estimated blood loss: none. Procedure: Pre-Anesthesia Assessment: - ASA Grade Assessment: IV - A patient with severe systemic disease that is a constant threat to life. After obtaining informed consent, the endoscope was passed under direct vision. Throughout the procedure, the patient's blood pressure, pulse, and oxygen saturations were monitored continuously. The Scope was introduced through the mouth, and advanced to the second part of duodenum. The upper GI endoscopy was accomplished without difficulty. The patient tolerated the procedure well. Findings: There was circumferential granularity of the entire esophagus. There was moderate narrowing of the proximal esophagus, due to esophagitis. There was linear ulceration throughout the mid body of the esophagus. 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 There was a mild ring at the GE junction. There was a small hiatal hernia. The stomach and duodenum were normal. Recommendation: - Discharge patient to home. (Ilana Molina .KARTIKC) Assessment and Plan 57 y/o male with a history of CAD, HLD, multiple myeloma, and anxiety who presents with odynophagia and dysphagia, 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 Circumferential granularity of entire esophagus. Moderate narrow of proximal esophagus. Linear ulceration throughout mid body of esophagus. -Continue full liquids after EGD and Boost -Continue magic mouth wash, Protonix IV, carafate -GI consulted, appreciate recs: Continue IV Protonix BID, Carafate QID, Magic mouth wash -Dilaudid prn breakthrough pain -Will increase fentanyl 75 mcg TD q72h as pt getting frequent Dilaudid -Gentle IVF PNA--stable -Levaquin and Cefepime day #7 of 7, d/c after today's doses -BCx NGTD Multiple myeloma--stable -Resolving pancytopenia s/p Neupogen, s/p 2 units PRBCs 11/14 -On Velcade, Revlimid, and Decadron (pulsed), oncology following -Fentanyl as above, gabapentin 100 mg PO TID, Cymbalta -S/p stabilizing surgery for T spine cord lesions at outside hospital - has been using walker at home for ambulation. -PT/OT Chronic systolic CHF, EF 40-45%--stable -D/C IVF if tolerating PO CAD, HLD -Continue ASA, pravastatin 80 mg PO hs Anxiety, depression -Cymbalta increased to 30 mg PO BID DVT prophylaxis -SCDs Code Status -Level I, FULL RESUSCITATION STATUS (Ilana Molina, CULLEN) Reviewed: Pt Seen/Exam by Me (Dayna Harvey MD) History Physician Passenger Screener Supervision Note: I interviewed and examined the patient. Discussed with MALLORIE Molina and agree with findings and plan as documented in the note. Any exceptions or clarifications are listed here: Patient returned from EGD and is tolerating some full liquids diet. Still has pain with swallowing. Minimal cough. 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 Also with left lower lobe pneumonia and pancytopenia related to chemotherapy. -EGD confirms this today -Continue PPI, Carafate, Magic mouthwash-hopefully esophagitis will improve with time -Continue IV fluids until taking adequate p.o. by mouth -Discontinue Levaquin, but continue cefepime for 2 more days -Follow counts on CBC -Appreciate hematology consultation-to resume chemo possibly next week -Increasing fentanyl patch to 75 mcg given large amounts of breakthrough pain medicine being required -Tachycardia - if this persists,consider w/u for PE. Follow. -Start Lovenox 40 mg subcu once daily for DVT prophylaxis Documented By: Dayna Harvey (Dayna Harvey MD)
[2017-11-18] MEDS ORDERED: FENTANYL PATCH REMOVE & WASTE SCH ×3 (15:59→18:59)
[2017-11-18] MEDS ORDERED: FENTANYL 75 MCG/HR TDSY TD SCH (16:00)
--- NOTE | 2017-11-18 16:29 | Hematology/Oncology Prog Note ---
Hematology/Onc Progress Note Date of Service Nov 18, 2017. Diagnoses Multiple myeloma Esophagitis Medications Medications Administered Medications (Trade) Dose Ordered Sig/Malik Route Start Time Stop Time Status Last Admin Dose Admin Sodium Chloride 1,000 ml @ 999 mls/hr Q1H1M STAT IV 11/12/17 10:29 11/12/17 11:29 DC 11/12/17 11:24 999 MLS/HR Levofloxacin (Levaquin / D5W) 750 mg NOW STAT IV 11/12/17 11:59 11/12/17 12:00 DC 11/12/17 12:16 750 MG Morphine Sulfate (MoRPHine SULFATE INJ) 4 mg NOW STAT IV 11/12/17 13:47 11/12/17 13:48 DC 11/12/17 13:54 4 MG Sodium Chloride 1,000 ml @ 999 mls/hr Q1H1M STAT IV 11/12/17 14:06 11/12/17 15:06 DC 11/12/17 14:44 999 MLS/HR Sodium Chloride 1,000 ml @ 100 mls/hr Q10H IV 11/12/17 14:00 11/14/17 18:13 DC 11/14/17 05:46 100 MLS/HR Pantoprazole Sodium 40 mg/ Syringe 10 ml @ 5 mls/min DAILY@09,21 IV 11/12/17 16:00 12/12/17 15:59 11/18/17 09:46 5 MLS/MIN Aspirin (Ecotrin Tab) 81 mg DAILY PO 11/13/17 08:00 12/13/17 08:59 Future Hold 11/17/17 13:56 81 MG Duloxetine HCl (Cymbalta Cap) 30 mg DAILY PO 11/13/17 08:00 11/14/17 18:16 DC 11/14/17 08:12 30 MG Fentanyl (Duragesic Patch) 50 mcg Q72H TD 11/13/17 09:00 11/18/17 15:34 DC 11/16/17 08:45 50 MCG Gabapentin (Neurontin Cap) 100 mg TID PO 11/12/17 14:00 12/12/17 13:59 11/18/17 09:49 100 MG Lidocaine (Lidoderm Patch 5%) 1 patch DAILY TD 11/13/17 08:00 12/13/17 08:59 4/17/18 09:48 1 PATCH Senna/Docusate Sodium (Senokot S Tab) 1 tab BID PO 11/12/17 20:00 12/12/17 20:59 11/18/17 09:47 1 TAB Oxycodone HCl (Roxicodone Immediate Rel Tab) 10 mg Q4H PRN PO 11/12/17 14:00 12/12/17 13:59 11/18/17 09:46 10 MG Pravastatin Sodium (Pravachol Tab) 80 mg DAILY PO 11/13/17 08:00 12/13/17 08:59 11/18/17 09:47 80 MG Miscellaneous (Remove Lidoderm Patch) 1 ea DAILY@21 N/A 11/12/17 21:00 12/12/17 20:59 11/17/17 20:10 1 EA Lidocaine HCl (Viscous Lidocaine 2% Soln) 20 ml Q3H PRN MT 11/12/17 14:00 12/12/17 13:59 11/17/17 20:08 20 ML Levofloxacin 750 mg/Prmx 150 ml @ 100 mls/hr Q24H IV 11/13/17 11:00 11/18/17 12:29 DC 11/18/17 11:16 100 MLS/HR Sodium Chloride 500 ml @ 999 mls/hr Q31M ONCE IV 11/12/17 15:15 11/12/17 15:45 DC 11/12/17 16:13 999 MLS/HR Dexamethasone/ Nystatin/ Diphenhydramine HCl/Sucrose/ Microcrystalline Cellulose/Barcode QID PO 11/12/17 17:00 12/12/17 16:59 11/18/17 09:52 5 ML Miscellaneous (Fentanyl Patch Remove & Waste) 1 ea Q3D@0859 N/A 11/13/17 08:59 11/18/17 15:34 DC 11/16/17 08:44 1 EA Miscellaneous Information (Check Fentanyl Patch Placement) 1 ea QS N/A 11/12/17 16:00 11/18/17 15:34 DC 11/18/17 09:25 1 EA Morphine Sulfate (MoRPHine SULFATE INJ) 4 mg NOW STAT IV 11/13/17 01:37 11/13/17 01:42 DC 11/13/17 01:56 4 MG Hydromorphone HCl (Dilaudid Inj) 1 mg Q3H PRN IV 11/13/17 08:15 11/27/17 08:14 11/18/17 02:11 1 MG Sucralfate (Carafate Susp) 1 gm ACHS PO 11/13/17 12:30 12/13/17 12:29 11/18/17 06:21 1 GM Enteral Nutritional Formula (Boost) 1 can TIDM PO 11/14/17 08:00 11/14/17 10:47 DC 11/14/17 08:15 1 CAN Potassium Chloride 10 meq/ Prmx 100 ml @ 100 mls/hr Q1H IV 11/14/17 08:45 11/14/17 10:44 DC 11/14/17 13:20 100 MLS/HR Cefepime HCl 2000 mg/Syringe 20 ml @ 5 mls/min Q8H IV 11/14/17 10:00 11/18/17 15:34 DC 11/18/17 09:46 5 MLS/MIN Filgrastim (Neupogen Sq) 480 mcg DAILY SC 11/14/17 09:30 12/14/17 09:29 Future Hold 11/15/17 08:39 480 MCG Acetaminophen (Tylenol Tab) 1,000 mg TODAY@0930 PO 11/14/17 09:30 11/14/17 23:59 DC 11/14/17 10:19 1,000 MG Diphenhydramine HCl (Benadryl Cap) 25 mg TODAY@0930 PO 11/14/17 09:30 11/14/17 23:59 DC 11/14/17 10:18 25 MG Enteral Nutritional Formula (Boost) 1 can TIDM PO 11/14/17 12:00 12/14/17 11:59 11/17/17 16:41 1 CAN Duloxetine HCl (Cymbalta Cap) 30 mg BID PO 11/14/17 20:00 12/13/17 08:59 11/18/17 09:47 30 MG Fentanyl (Duragesic Patch) 12 mcg Q72H TD 11/15/17 19:00 11/18/17 15:34 DC 11/15/17 19:24 12 MCG Miscellaneous Information (Check Fentanyl Patch Placement) 1 ea QS N/A 11/16/17 00:00 11/18/17 15:34 DC 11/18/17 09:25 1 EA Potassium Chloride/Dextrose/ Sod Cl 1,000 ml @ 50 mls/hr Q20H IV 11/17/17 00:00 11/18/17 05:07 DC 11/18/17 01:32 50 MLS/HR Subjective Endoscopy today demonstrates esophagitis. He states he still has quite a bit of difficulty swallowing and that it provokes quite a bit of pain. He was scheduled for Revlimid today as well as Velcade but this has been placed on hold for now. He is afebrile. He denies new shortness of breath. He really does not have a productive cough. He is being treated for presumed pneumonia. Blood counts have recovered. Review of Systems: Constitutional: Negative for night sweats, or fever Eyes: Negative for event change of vision ENT: Negative for epistaxis, nasal discharge, sore throat, or deafness Cardiovascular: Negative for chest pain, palpitations, dizziness, diaphoresis Respiratory: Negative for new shortness of breath,hemoptysis, or purulent cough Gastrointestinal: Negative for diarrhea, hematemesis, melena, nausea, vomiting , again he has dyspepsia Integumentary (skin): Negative for rash or jaundice discoloration Genitourinary: Negative for urinary frequency, hematuria, or dysuria Neurological: Negative for weakness, seizure activity, headache, or dizziness Lymphatic/Hematologic: Negative for petechiae, bleeding or new adenopathy Musculoskeletal: Negative for new joint or back pain. His previous back pain seems to be tolerable Allergic/Immunologic: Negative for unusual rash or pruritis. Vital Signs Vital Signs Past 12 Hours Date Time Temp Pulse Resp B/P (MAP) Pulse Ox O2 Delivery O2 Flow Rate FiO2 11/18/17 15:36 36.5 106 20 114/77 (89) 95 11/18/17 14:19 112 20 104/68 (80) 96 Room Air 11/18/17 14:16 93 Nasal Cannula 2 11/18/17 14:16 90 Room Air 11/18/17 14:13 106 20 91/64 (73) 94 Room Air 11/18/17 14:00 115 24 99/62 (74) 94 Nasal Cannula 2 11/18/17 13:55 113 24 98/78 (85) 90 Room Air 11/18/17 13:55 95 Nasal Cannula 2 11/18/17 13:40 129 24 114/84 (94) 98 Room Air 11/18/17 12:59 37.1 115 20 109/76 (87) 95 Room Air 11/18/17 12:06 36.7 97 18 105/69 (81) 95 11/18/17 09:30 Room Air 11/18/17 07:09 36.6 93 20 113/71 (85) 91 Room Air Physical Exam Constitutional: vitals are stable. Eyes: Eyes are MERNA EOMI without conjuctival erythema or icterus. ENT: External examination was negative for masses. Neck: Negative for masses or palpable thyromegaly Respiratory: Lung sounds were generally clear bilaterally Cardiovascular: Heart was RRR without significant murmur, gallops aoe rubs Gastrointestinal: No palpable hepatic or splenomegaly. The abdomen was soft with normal bowel sounds. Lymphatic system: there was no palpable peripheral lymphadenopathy Musculoskeletal System: The musculoskeletal system seemed concordant with age. Skin: The skin was negative for jaundice. Neurologic exam: The exam was negative for any focal findings. Deep tendon reflexes were equal and symmetrical. Psychiatric exam: Was essentially negative with normal mood and effect. Extremities: Negative for edema erythema Laboratory Last 24 Hours Test 11/18/17 05:42 White Blood Count 2.53 K/uL Red Blood Count 3.19 M/uL Hemoglobin 10.1 g/dL Hematocrit 29.4 % Mean Corpuscular Volume 92.2 fL Mean Corpuscular Hemoglobin 31.7 pg Mean Corpuscular Hemoglobin Concent 34.4 g/dl Platelet Count 129 K/uL Mean Platelet Volume 9.5 fL Neutrophils (%) (Auto) 54.9 % Lymphocytes (%) (Auto) 20.6 % Monocytes (%) (Auto) 15.0 % Eosinophils (%) (Auto) 8.3 % Basophils (%) (Auto) 0.4 % Neutrophils # (Auto) 1.39 K/uL Lymphocytes # (Auto) 0.52 K/uL Monocytes # (Auto) 0.38 K/uL Eosinophils # (Auto) 0.21 K/uL Basophils # (Auto) 0.01 K/uL RDW Standard Deviation 61.5 fL RDW Coefficient of Variation 18.2 % Immature Granulocyte % (Auto) 0.8 % Immature Granulocyte # (Auto) 0.02 K/uL Sodium Level 133 mmol/L Potassium Level 3.6 mmol/L Chloride Level 102 mmol/L Carbon Dioxide Level 28 mmol/L Anion Gap 3.0 mmol/L Blood Urea Nitrogen 8 mg/dl Creatinine 0.64 mg/dl Est Creatinine Clear Calc Drug Dose 124.3 ml/min Estimated GFR () 124.2 Estimated GFR (Non- 107.2 BUN/Creatinine Ratio 12.3 Random Glucose 94 mg/dl Calcium Level 8.3 mg/dl Assessment & Plan He states that his dysphasia is about as bad now as it was last week. Radiation is on hold. His blood counts have recovered. I would anticipate the resumption of his Velcade this time next week and we will place in our schedule plus return to clinic at that time. We will update his immunoglobulin levels. His Revlimid dose is usually 25 mg a day for 21 days then 1 week off and then resume. He has been in his 1 week off. I believe we should start the Revlimid again perhaps of this week. His will bring in the medicine if he is still in the hospital. He should be on Lovenox for now a prophylactic dose is 40 mg subcu since he is not on aspirin and has been taking Revlimid (risk of dvt). Again we will reshape his clinic schedule to resume IV Bortezimib next Friday. His Revlimid course of 25 mg a day po could begin most likely of this week.
[2017-11-18] MEDS: ENOXAPARIN 40 MG/0.4 ML SYR SQ SCH (21:00)
[2017-11-19] VITALS (7 sets, daily range): BP systolic 99–110; BP diastolic 66–76; PULSE 89–112; TEMP 36.5–36.6; O2SAT 93–98
[2017-11-19] MEDS: CHECK FENTANYL PATCH PLACEMENT SCH ×4 (01:23→23:58)
[2017-11-19] MEDS: SUCRALFATE 1 GM/10 ML UDC PO SCH ×4 (05:41→20:31)
[2017-11-19 06:07] LABS: HEMATOCRIT 29.2 % (42-52); HEMOGLOBIN 9.9 g/dL (14.0-18.0); MEAN CELL VOLUME 91.8 fL (80-100); MEAN CORPUSCULAR HEMOGLOBIN 31.1 pg (25-34); MEAN CORPUSCULAR HGB CONC 33.9 g/dl (32-36); PLATELET COUNT 152 K/uL (130-400); RED CELL DISTRIBUTION WIDTH CV 17.8 % (11.5-14.5); WHITE BLOOD COUNT 2.24 K/uL (4.8-10.8)
[2017-11-19 06:33] LABS: CALCIUM 8.3 mg/dl (8.5-10.1); CREATININE 0.69 mg/dl (0.60-1.40); POTASSIUM 3.8 mmol/L (3.5-5.1)
[2017-11-19] MEDS: DOCUSATE SODIUM/SENNA 50/8.6MG TAB PO SCH ×2 (07:45→20:31)
[2017-11-19] MEDS: GABAPENTIN 100 MG CAP PO SCH ×3 (07:45→20:30)
[2017-11-19] MEDS: DEXAMETHASONE CONC SOLN 3.75 MG, NYSTATIN SUSP 30 ML, DiphenhydrAMINE HCL SYRUP 300 MG,... PO SCH ×20 (07:45→20:31)
[2017-11-19] MEDS: DULOXETINE (CYMBALTA) 30 MG CAP PO SCH ×2 (07:45→20:30)
[2017-11-19] MEDS: LIDODERM (LIDOCAINE) PATCH 5% TD SCH (07:45)
[2017-11-19] MEDS: PRAVASTATIN SOD 40 MG TAB PO SCH (07:45)
[2017-11-19] MEDS: PANTOprazole INJ 40 MG in SYRINGE 0 ML IV SCH ×2 (07:47→20:31)
[2017-11-19] MEDS: BOOST VANILLA PO SCH ×3 (07:52→17:37)
--- NOTE | 2017-11-19 15:11 | Hospitalist Progress Note ---
Hospitalist Progress Note Date of Service Nov 19, 2017. (Ilana Molina ., MALLORIE-C) Subjective Pt evaluation today including: conversation w/ patient, conversation w/ family ( at bedside), physical exam, chart review, lab review, review of inpatient medication list Patient states his pain remains unchanged. He states he has pain in his throat at rest and worse with swallowing. He is tolerating a full liquid diet, particularly creamy bland foods. He states he ate almost 100% of his breakfast , just very slowly. He otherwise denies complaints. The patient denies fevers , chills, sweats, chest pain, palpitations, claudication, cough, wheezing, shortness of breath, nausea, vomiting, abdominal pain, dysuria, hematuria, urinary retention, paralysis, weakness, numbness and tingling. Additional Comments: See HPI for pertinent positives and negatives. All other systems reviewed and negative. (Ilana Molina ., PA-C) Objective Vital Signs Date Time Temp Pulse Resp B/P (MAP) Pulse Ox O2 Delivery O2 Flow Rate FiO2 11/19/17 11:15 36.6 109 18 99/66 (77) 94 Room Air 11/19/17 08:00 93 Room Air 11/19/17 07:17 36.5 95 16 106/70 (82) 93 Room Air 11/19/17 04:30 36.6 89 19 108/76 (87) 94 Room Air 11/19/17 00:40 Room Air 11/18/17 22:37 36.7 96 18 101/66 (78) 91 Room Air 11/18/17 18:49 36.8 106 18 99/67 (78) 93 Room Air 11/18/17 16:00 95 Room Air 11/18/17 15:36 36.5 106 20 114/77 (89) 95 (Ilana Molina ., PA-C) Physical Exam Notes: General appearance: Well-developed, well-nourished, no apparent distress Head: Normocephalic, atraumatic Eyes: Normal inspection, PERRL, EOMI ENT: Normal ENT inspection, hearing grossly normal, pharynx normal Neck: Supple, no JVD, trachea midline Respiratory/Chest: +Decreased breath sounds. Lungs clear to auscultation, no respiratory distress Cardiovascular: Regular rate & rhythm, no gallop, no murmur Abdomen/GI: Normal bowel sounds, non-tender, soft Extremities/Musculoskeletal: Normal inspection, no calf tenderness, no pedal edema Neurological/Psych: +Depressed affect. Frustrated with prognosis. Alert, oriented x 3 Skin: Normal color, warm/dry, no rash (Ilana Molina ., MALLORIE-C) Laboratory Results Last 24 Hours Test 11/18/17 16:57 11/19/17 05:28 Immunoglobulin G 1660.0 mg/dL Immunoglobulin A 195.0 mg/dL Immunoglobulin M 63.4 mg/dL White Blood Count 2.24 K/uL Red Blood Count 3.18 M/uL Hemoglobin 9.9 g/dL Hematocrit 29.2 % Mean Corpuscular Volume 91.8 fL Mean Corpuscular Hemoglobin 31.1 pg Mean Corpuscular Hemoglobin Concent 33.9 g/dl RDW Standard Deviation 60.0 fL RDW Coefficient of Variation 17.8 % Platelet Count 152 K/uL Mean Platelet Volume 9.0 fL Sodium Level 132 mmol/L Potassium Level 3.8 mmol/L Chloride Level 98 mmol/L Carbon Dioxide Level 31 mmol/L Anion Gap 3.0 mmol/L Blood Urea Nitrogen 6 mg/dl Creatinine 0.69 mg/dl Est Creatinine Clear Calc Drug Dose 115.3 ml/min Estimated GFR () 120.4 Estimated GFR (Non- 103.9 BUN/Creatinine Ratio 9.3 Random Glucose 97 mg/dl Calcium Level 8.3 mg/dl (Ilana Molina ., PA-C) Assessment and Plan 57 y/o male with a history of CAD, HLD, multiple myeloma, and anxiety who presents with odynophagia and dysphagia, 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 Circumferential granularity of entire esophagus. Moderate narrow of proximal esophagus. Linear ulceration throughout mid body of esophagus. -Continue full liquids and Boost -Continue magic mouth wash, Protonix IV, Carafate -GI consulted, appreciate recs: Continue IV Protonix BID, Carafate QID, Magic mouth wash -Dilaudid prn breakthrough pain -Increased fentanyl 75 mcg TD q72h as pt getting frequent Dilaudid. If pain remains unchanged, consider increasing fentanyl further -Continue gentle IVF due to mild hyponatremia. Sodium 132 on 11/19, down from 133 PNA--stable -Received Levaquin and Cefepime here, 7 day course completed -BCx NGTD Multiple myeloma--stable -Resolving pancytopenia s/p Neupogen, s/p 2 units PRBCs 11/14 -On Velcade, Revlimid, and Decadron (pulsed), oncology following. Recommend restarting Revlimid , Velcade next week -Fentanyl as above, gabapentin 100 mg PO TID, Cymbalta -S/p stabilizing surgery for T spine cord lesions at outside hospital - has been using walker at home for ambulation. -PT/OT Tachycardia -Check CTA chest for PE, Revlimid does increase risk of clots on top of malignancy Chronic systolic CHF, EF 40-45%--stable -Gentle IVF as above CAD, HLD -Continue ASA, pravastatin 80 mg PO hs Anxiety, depression -Cymbalta increased to 30 mg PO BID DVT prophylaxis -Enoxaparin 40 mg SC q24h -SCDs Code Status -Level I, FULL RESUSCITATION STATUS Dispo -Continue to monitor hyponatremia and PO intake (Ilana Molina ., CULLEN) Reviewed: Pt Seen/Exam by Me (Dayna Harvey MD) History Physician Medication Administration Professional Supervision Note: I interviewed and examined the patient. Discussed with MALLORIE Molina and agree with findings and plan as documented in the note. Any exceptions or clarifications are listed here: Tolerating full liquids fairly well today. Afebrile. Has not used any as needed pain meds today. Remains tachycardic Vitals reviewed Gen: AAOx3, NAD HEENT: anicteric sclerae, EOMI CV: Regular rhythm, mild tachycardia, no mgr nl S1S2 Pulm: CTAB no wcr Abd: +BS soft NT ND no masses or hernias Ext: no edema, 2+ DP pulses Skin: no rashes, warm/dry Neuro: full strength throughout Patient is a 57-year-old male with a history of CAD with inferior [place] in 2000, Chronic systolic CHF with baseline EF 45%, Ischemic cardiomyopathy, Previous smoker with emphysema, PAD status post aortobifemoral bypass, Plasmablastic myeloma/lymphoma, Recent surgical stabilization of pathologic T7 mass with compression on the spinal cord, and multiple myeloma, here with severe dysphagia and odynophagia 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 Also with left lower lobe pneumonia and pancytopenia related to chemotherapy. -EGD confirms radiation esophagitis-pathology report reviewed and again consistent with the same -Continue PPI, Carafate, Magic mouthwash-hopefully esophagitis will improve with time -Continue IV fluids until taking adequate p.o. by mouth-with mild hyponatremia worsening today, will continue IV fluids and encouraged increased p.o. intake -Discontinued Levaquin and cefepime after completion of courses -Pancytopenia all improving -Appreciate hematology consultation-to resume chemo possibly next week -Increased fentanyl patch to 75 mcg given large amounts of breakthrough pain medicine being required and seems to be helping so far today -Tachycardia - as this is persisting, and with increased risk of DVT/PE, will get CT angiogram of the chest today to rule out PE -Continue Lovenox 40 mg subcu once daily for DVT prophylaxis Disposition-hopefully to home in 1-2 days if hyponatremia and p.o. intake are both improving and his pain is controlled. Documented By: Dayna Harvey (Dayna Harvey MD)
[2017-11-19] MEDS ORDERED: OPTIRAY 320 IV PRN (15:30)
[2017-11-19] MEDS: D5NSS + 20MEQ KCL 1,000 ML IV SCH (16:34)
--- NOTE | 2017-11-19 18:33 | DIAGNOSTIC IMAGING REPORT ---
(CHEST FOR PE) ANGIO WITH CLINICAL HISTORY: 57 years-old Male presenting with multiple myeloma, radiation esophagitis, clinical concern for pulmonary embolus. TECHNIQUE: Multidetector CT angiography of the chest was performed after administration of intravenous contrast. 3-D volumetric and/or maximum intensity projection (MIP) images were subsequently reconstructed for review. IV contrast: 83 mL of Optiray 320. A dose lowering technique was used consistent with the principles of ALARA (as low as reasonably achievable). COMPARISON: 10/20/2017. CT DOSE (mGy.cm): The estimated cumulative dose is 447.49 mGy.cm. FINDINGS: Case Supervisor topogram: Unremarkable. Pulmonary vasculature: The study is suboptimal for the assessment of the pulmonary vascular tree secondary to timing of the contrast bolus and respiratory motion artifact. No filling defect within the pulmonary arteries to suggest embolus. Main pulmonary artery is not enlarged. No flattening of the interventricular septum. No intracardiac filling defect. No reflux of contrast into the hepatic veins. Remaining chest: On soft tissue windows, normal thyroid. Bilateral gynecomastia. Redemonstration of prominent bilateral hilar and mediastinal lymph nodes. Index nodes in the subcarinal region measure 8 mm and 7 mm in the short axis. Atherosclerosis of the aorta. Atherosclerotic plaque significantly narrows the origin of the left subclavian artery with up to 50% stenosis. Normal heart size. Coronary artery calcification. No pericardial or pleural effusion. Parenchymal calcification noted in the liver, nonspecific. On lung windows, interval development of groundglass added density most significantly in the left upper lobe but also affecting the right upper and middle lobes. Background moderate to severe upper lobe predominant emphysema. Bandlike opacities at the lung bases likely scarring or atelectasis. Subpleural solid 7 mm nodule in the superior segment of the right lower lobe new from prior exam and possibly a manifestation of atelectasis or infection. Bronchial wall thickening. Minimal debris in central airways. On bone windows, T6-9 bilateral transpedicular screw and ten fixation. Laminectomy changes also noted at T6-7. Innumerable lytic lesions noted throughout the axial skeleton. Redemonstration of the severe compression deformity of T3 secondary to extensive lytic changes. Slight retropulsion of the T3 fracture fragments into the spinal canal. IMPRESSION: 1. Redemonstration of innumerable lytic osseous lesions compatible with known multiple myeloma with a severe pathologic compression deformity of T3 and slight retropulsion of fracture fragments narrowing the spinal canal. This is stable to slightly more severe than on prior exam. The degree of spinal canal narrowing would be better demonstrated on thoracic spine MR. 2. Interval development of groundglass infiltrates in the upper lobes greatest in the left upper lobe. This is concerning for an acute infectious process superimposed on moderate to severe upper lobe predominant emphysema. 3. Subpleural solid 7 mm nodule in the superior segment of the right lower lobe is new from prior, and therefore, likely related to either atelectasis or infection given the short time course. 4. Reactive hilar and mediastinal lymphadenopathy. Electronically signed by: Bebeto Ram M.D. 11/19/2017 6:32 PM Dictated Date/Time: 11/19/2017 6:21 PM
[2017-11-19] MEDS: ENOXAPARIN 40 MG/0.4 ML SYR SQ SCH (20:32)
[2017-11-19] MEDS: HYDROmorphone INJ 2 MG/ML SYR/VIAL IV PRN (20:33)
[2017-11-20 00:36] VITALS: BP 104/71; PULSE 97; TEMP 36.7; O2SAT 93
[2017-11-20 04:16] VITALS: BP 112/76; PULSE 102; TEMP 36.6; O2SAT 96
[2017-11-20] MEDS: SUCRALFATE 1 GM/10 ML UDC PO SCH ×2 (06:30→11:49)
[2017-11-20 07:27] VITALS: BP 103/70; PULSE 98; TEMP 36.5; O2SAT 94
[2017-11-20 07:43] LABS: CALCIUM 8.5 mg/dl (8.5-10.1); CREATININE 0.6 mg/dl (0.60-1.40); POTASSIUM 3.7 mmol/L (3.5-5.1)
[2017-11-20 07:47] LABS: HEMATOCRIT 29.5 % (42-52); HEMOGLOBIN 9.8 g/dL (14.0-18.0); MEAN CELL VOLUME 91.6 fL (80-100); MEAN CORPUSCULAR HEMOGLOBIN 30.4 pg (25-34); MEAN CORPUSCULAR HGB CONC 33.2 g/dl (32-36); PLATELET COUNT 186 K/uL (130-400); RED CELL DISTRIBUTION WIDTH CV 17.9 % (11.5-14.5); RED CELL DISTRIBUTION WIDTH SD 60.7 fL (36.4-46.3); WHITE BLOOD COUNT 2.44 K/uL (4.8-10.8)
[2017-11-20] MEDS: CHECK FENTANYL PATCH PLACEMENT SCH (08:00)
[2017-11-20] MEDS: BOOST VANILLA PO SCH ×2 (09:01→12:39)
[2017-11-20] MEDS: GABAPENTIN 100 MG CAP PO SCH ×2 (09:02→12:39)
[2017-11-20] MEDS: PANTOprazole INJ 40 MG in SYRINGE 0 ML IV SCH (09:02)
[2017-11-20] MEDS: DOCUSATE SODIUM/SENNA 50/8.6MG TAB PO SCH (09:02)
[2017-11-20] MEDS: DULOXETINE (CYMBALTA) 30 MG CAP PO SCH (09:02)
[2017-11-20] MEDS: LIDODERM (LIDOCAINE) PATCH 5% TD SCH (09:03)
[2017-11-20] MEDS: PRAVASTATIN SOD 40 MG TAB PO SCH (09:03)
[2017-11-20] MEDS: DEXAMETHASONE CONC SOLN 3.75 MG, NYSTATIN SUSP 30 ML, DiphenhydrAMINE HCL SYRUP 300 MG,... PO SCH ×10 (09:06→11:49)
--- NOTE | 2017-11-20 10:58 | Hematology/Oncology Prog Note ---
Hematology/Onc Progress Note Date of Service Nov 20, 2017. Diagnoses Multiple myeloma Esophagitis Medications Medications Administered Medications (Trade) Dose Ordered Sig/Malik Route Start Time Stop Time Status Last Admin Dose Admin Sodium Chloride 1,000 ml @ 999 mls/hr Q1H1M STAT IV 11/12/17 10:29 11/12/17 11:29 DC 11/12/17 11:24 999 MLS/HR Levofloxacin (Levaquin / D5W) 750 mg NOW STAT IV 11/12/17 11:59 11/12/17 12:00 DC 11/12/17 12:16 750 MG Morphine Sulfate (MoRPHine SULFATE INJ) 4 mg NOW STAT IV 11/12/17 13:47 11/12/17 13:48 DC 11/12/17 13:54 4 MG Sodium Chloride 1,000 ml @ 999 mls/hr Q1H1M STAT IV 11/12/17 14:06 11/12/17 15:06 DC 11/12/17 14:44 999 MLS/HR Sodium Chloride 1,000 ml @ 100 mls/hr Q10H IV 11/12/17 14:00 11/14/17 18:13 DC 11/14/17 05:46 100 MLS/HR Pantoprazole Sodium 40 mg/ Syringe 10 ml @ 5 mls/min DAILY@09,21 IV 11/12/17 16:00 12/12/17 15:59 11/20/17 09:02 5 MLS/MIN Aspirin (Ecotrin Tab) 81 mg DAILY PO 11/13/17 08:00 12/13/17 08:59 Future Hold 11/17/17 13:56 81 MG Duloxetine HCl (Cymbalta Cap) 30 mg DAILY PO 11/13/17 08:00 11/14/17 18:16 DC 11/14/17 08:12 30 MG Fentanyl (Duragesic Patch) 50 mcg Q72H TD 11/13/17 09:00 11/18/17 15:34 DC 11/16/17 08:45 50 MCG Gabapentin (Neurontin Cap) 100 mg TID PO 11/12/17 14:00 12/12/17 13:59 11/20/17 09:02 100 MG Lidocaine (Lidoderm Patch 5%) 1 patch DAILY TD 11/13/17 08:00 12/13/17 08:59 4/19/18 09:03 1 PATCH Senna/Docusate Sodium (Senokot S Tab) 1 tab BID PO 11/12/17 20:00 12/12/17 20:59 11/20/17 09:02 1 TAB Oxycodone HCl (Roxicodone Immediate Rel Tab) 10 mg Q4H PRN PO 11/12/17 14:00 12/12/17 13:59 11/18/17 09:46 10 MG Pravastatin Sodium (Pravachol Tab) 80 mg DAILY PO 11/13/17 08:00 12/13/17 08:59 11/20/17 09:03 80 MG Miscellaneous (Remove Lidoderm Patch) 1 ea DAILY@21 N/A 11/12/17 21:00 12/12/17 20:59 11/19/17 20:32 1 EA Lidocaine HCl (Viscous Lidocaine 2% Soln) 20 ml Q3H PRN MT 11/12/17 14:00 12/12/17 13:59 11/17/17 20:08 20 ML Levofloxacin 750 mg/Prmx 150 ml @ 100 mls/hr Q24H IV 11/13/17 11:00 11/18/17 12:29 DC 11/18/17 11:16 100 MLS/HR Sodium Chloride 500 ml @ 999 mls/hr Q31M ONCE IV 11/12/17 15:15 11/12/17 15:45 DC 11/12/17 16:13 999 MLS/HR Dexamethasone/ Nystatin/ Diphenhydramine HCl/Sucrose/ Microcrystalline Cellulose/Barcode QID PO 11/12/17 17:00 12/12/17 16:59 11/20/17 09:06 5 ML Miscellaneous (Fentanyl Patch Remove & Waste) 1 ea Q3D@0859 N/A 11/13/17 08:59 11/18/17 15:34 DC 11/16/17 08:44 1 EA Miscellaneous Information (Check Fentanyl Patch Placement) 1 ea QS N/A 11/12/17 16:00 11/18/17 15:34 DC 11/18/17 09:25 1 EA Morphine Sulfate (MoRPHine SULFATE INJ) 4 mg NOW STAT IV 11/13/17 01:37 11/13/17 01:42 DC 11/13/17 01:56 4 MG Hydromorphone HCl (Dilaudid Inj) 1 mg Q3H PRN IV 11/13/17 08:15 11/27/17 08:14 11/19/17 20:33 1 MG Sucralfate (Carafate Susp) 1 gm ACHS PO 11/13/17 12:30 12/13/17 12:29 11/20/17 06:30 1 GM Enteral Nutritional Formula (Boost) 1 can TIDM PO 11/14/17 08:00 11/14/17 10:47 DC 11/14/17 08:15 1 CAN Potassium Chloride 10 meq/ Prmx 100 ml @ 100 mls/hr Q1H IV 11/14/17 08:45 11/14/17 10:44 DC 11/14/17 13:20 100 MLS/HR Cefepime HCl 2000 mg/Syringe 20 ml @ 5 mls/min Q8H IV 11/14/17 10:00 11/18/17 15:34 DC 11/18/17 09:46 5 MLS/MIN Filgrastim (Neupogen Sq) 480 mcg DAILY SC 11/14/17 09:30 12/14/17 09:29 Future Hold 11/15/17 08:39 480 MCG Acetaminophen (Tylenol Tab) 1,000 mg TODAY@0930 PO 11/14/17 09:30 11/14/17 23:59 DC 11/14/17 10:19 1,000 MG Diphenhydramine HCl (Benadryl Cap) 25 mg TODAY@0930 PO 11/14/17 09:30 11/14/17 23:59 DC 11/14/17 10:18 25 MG Enteral Nutritional Formula (Boost) 1 can TIDM PO 11/14/17 12:00 12/14/17 11:59 11/20/17 09:01 1 CAN Duloxetine HCl (Cymbalta Cap) 30 mg BID PO 11/14/17 20:00 12/13/17 08:59 11/20/17 09:02 30 MG Fentanyl (Duragesic Patch) 12 mcg Q72H TD 11/15/17 19:00 11/18/17 15:34 DC 11/15/17 19:24 12 MCG Miscellaneous Information (Check Fentanyl Patch Placement) 1 ea QS N/A 11/16/17 00:00 11/18/17 15:34 DC 11/18/17 09:25 1 EA Potassium Chloride/Dextrose/ Sod Cl 1,000 ml @ 50 mls/hr Q20H IV 11/17/17 00:00 11/18/17 05:07 DC 11/18/17 01:32 50 MLS/HR Potassium Chloride/Dextrose/ Sod Cl 1,000 ml @ 50 mls/hr Q20H IV 11/18/17 20:30 12/18/17 20:29 11/19/17 16:34 50 MLS/HR Fentanyl (Duragesic Patch) 75 mcg Q3D@0900 TD 11/18/17 16:00 12/02/17 15:59 11/18/17 16:59 75 MCG Miscellaneous (Fentanyl Patch Remove & Waste) 1 ea Q3D@0859 N/A 11/18/17 15:59 12/18/17 15:58 11/18/17 15:59 1 EA Miscellaneous Information (Check Fentanyl Patch Placement) 1 ea QS N/A 11/18/17 16:00 12/18/17 15:59 11/20/17 08:00 1 EA Miscellaneous (Fentanyl Patch Remove & Waste) 1 ea TODAY@1559 N/A 11/18/17 15:59 11/18/17 16:00 DC 11/18/17 15:59 1 EA Enoxaparin Sodium (Lovenox Inj) 40 mg DAILY@2000 SQ 11/18/17 20:00 12/18/17 19:59 11/19/17 20:32 40 MG Subjective Depressed. Continues to have significant amount dysphagia although the diet has been increased and he seems to be tolerating that fairly well. Blood work is stable. IgG is considerably decreased from before. CT of the chest comments about changes consistent with pneumonia. Review of Systems: Constitutional: Negative for night sweats, or fever Eyes: Negative for event change of vision ENT: Negative for epistaxis, nasal discharge, sore throat, or deafness Cardiovascular: Negative for chest pain, palpitations, dizziness, diaphoresis Respiratory: Negative for new shortness of breath,hemoptysis, or purulent cough Gastrointestinal: Negative for diarrhea, hematemesis, melena, nausea, vomiting , or dyspepsia. Continues to have a significant amount of dysphagia Integumentary (skin): Negative for rash or jaundice discoloration Genitourinary: Negative for urinary frequency, hematuria, or dysuria Neurological: Negative for weakness, seizure activity, headache, or dizziness Lymphatic/Hematologic: Negative for petechiae, bleeding or new adenopathy Musculoskeletal: Negative for new joint or back pain Allergic/Immunologic: Negative for unusual rash or pruritis. Vital Signs Vital Signs Past 12 Hours Date Time Temp Pulse Resp B/P (MAP) Pulse Ox O2 Delivery O2 Flow Rate FiO2 11/20/17 08:00 Room Air 11/20/17 07:27 36.5 98 16 103/70 (81) 94 Room Air 11/20/17 04:16 36.6 102 20 112/76 (88) 96 Room Air 11/20/17 00:36 36.7 97 18 104/71 (82) 93 Room Air 11/20/17 00:20 Room Air Physical Exam Constitutional: Negative for night sweats, or fever Eyes: Negative for event change of vision ENT: Negative for epistaxis, nasal discharge, sore throat, or deafness Cardiovascular: Negative for chest pain, palpitations, dizziness, diaphoresis Respiratory: Negative for new shortness of breath,hemoptysis, or purulent cough Gastrointestinal: Negative for diarrhea, hematemesis, melena, nausea, vomiting , or dyspepsia Integumentary (skin): Negative for rash or jaundice discoloration Genitourinary: Negative for urinary frequency, hematuria, or dysuria Neurological: Negative for weakness, seizure activity, headache, or dizziness Lymphatic/Hematologic: Negative for petechiae, bleeding or new adenopathy Musculoskeletal: Negative for new joint or back pain Allergic/Immunologic: Negative for unusual rash or pruritis. Laboratory Last 24 Hours Test 11/20/17 06:07 White Blood Count 2.44 K/uL Red Blood Count 3.22 M/uL Hemoglobin 9.8 g/dL Hematocrit 29.5 % Mean Corpuscular Volume 91.6 fL Mean Corpuscular Hemoglobin 30.4 pg Mean Corpuscular Hemoglobin Concent 33.2 g/dl RDW Standard Deviation 60.7 fL RDW Coefficient of Variation 17.9 % Platelet Count 186 K/uL Mean Platelet Volume 9.0 fL Sodium Level 136 mmol/L Potassium Level 3.7 mmol/L Chloride Level 100 mmol/L Carbon Dioxide Level 29 mmol/L Anion Gap 6.0 mmol/L Blood Urea Nitrogen 5 mg/dl Creatinine 0.60 mg/dl Est Creatinine Clear Calc Drug Dose 132.6 ml/min Estimated GFR () 127.6 Estimated GFR (Non- 110.1 BUN/Creatinine Ratio 8.7 Random Glucose 101 mg/dl Calcium Level 8.5 mg/dl Assessment & Plan Opinions have essentially resolved. He was my original intent from earlier this week to resume the Revlimid 25 mg a day today however with his pneumonia and I would prefer holding off on that for now. He is scheduled to visit our clinic next Friday and at that time Velcade will be given and Revlimid can resume at that time. Informed of his blood work today and decision to further hold revlimid for now.. Sodium is now stable. IgG is considerably decreased from before. Will Sign off for now. Again he has a scheduled appointment next week in our clinic to resume his systemic therapy. Please do not hesitate to reconsult if necessary.
[2017-11-20 11:16] VITALS: BP 106/71; PULSE 106; TEMP 36.5; O2SAT 96
[2017-11-20] MEDS: D5NSS + 20MEQ KCL 1,000 ML IV SCH (11:48)
[2017-11-20] MEDS: HYDROmorphone INJ 2 MG/ML SYR/VIAL IV PRN (11:48)
[2017-11-20 13:08] VITALS: BP 106/71; PULSE 106; TEMP 36.5; O2SAT 96
[2017-11-20] MEDS ORDERED: CRFUDL PO (14:19)
[2017-11-20] MEDS ORDERED: Enteral Nutrition Formula PO (14:29)
[2017-11-20] MEDS ORDERED: DRGTP25 TD (14:29)
[2017-11-20] MEDS ORDERED: PANT40TA PO (14:29)
[2017-11-20] MEDS ORDERED: DULO60CA44 PO (14:29)
--- NOTE | 2017-11-20 14:34 | Discharge Instructions ---
Discharge Instructions Date of Service Nov 20, 2017. Admission Reason for Admission: Multiple Myeloma, Radiation Esophagitis Discharge Discharge Diagnosis / Problem: Radiation esophagitis Discharge Goals Goal(s): Decrease discomfort, Improve function, Diagnostic testing, Therapeutic intervention Activity Recommendations Activity Limitations: resume your previous activity . Instructions / Follow-Up Instructions / Follow-Up You were admitted to the hospital with painful/difficulty swallowing with suspected esophagitis due to your radiation treatments. This was confirmed on EGD (upper endoscopy). You were treated with a "magic mouth wash", twice a day Protonix to reduce acid and Carafate to coat your intestinal lining. Unfortunately, this will take some time to resolve. You were also found to have a pneumonia during your stay but you have completed a full course of antibiotics and this is now resolving. As you are tolerating a diet, you are now medically stable for discharge. Medications: *Please take Magic Swizzle swish and swallow 2 teaspoons (10 mL) by mouth four times a day. *Please take pantoprazole 40 mg twice a day to help reduce acid reflux. *Please take Carafate (sucralfate) 1 gm by mouth four times a day. *Your Cymbalta was increased to 60 mg. *Your fentanyl patch was increased to 75 mcg. Since you just filled the 50 mcg , a prescription for an addition 25 mcg was provided to use with the 50 mcg patch. *Do not take your Revlimid or Velcade until you follow up with oncology on Friday. *Continue your other home medications as prescribed. Follow up: *You have been scheduled to follow with your PCP and oncology. Please seek medical attention if you experience fevers, chills, sweats, dizziness/lightheadedness, loss of consciousness, chest pain, shortness of breath, nausea, vomiting, numbness or tingling. Current Hospital Diet Patient's current hospital diet: Full Liquid Diet Discharge Diet Recommended Diet: Full Liquid Diet (creamy/bland foods, can advance to regular diet as tolerated) Procedures Procedures Performed: BX Pending Studies Studies pending at discharge: no Medical Emergencies . Who to Call and When: Medical Emergencies: If at any time you feel your situation is an emergency, please call 911 immediately. . Non-Emergent Contact Non-Emergency issues call your: Primary Care Provider, Oncologist Call Non-Emergent contact if: you have a fever, your pain is not controlled, your pain is worsening, your pain is unusual for you, your pain is concerning you, you have any medication questions . Past History Medical & Surgical History: (1) Radiation esophagitis (2) Pneumonia . "Provider Documentation" section prepared by Ilana Molina. .
--- NOTE | 2017-11-20 15:38 | Discharge Summary ---
Discharge Summary Date of Service Nov 20, 2017. Discharge Summary Admission Date: Nov 13, 2017 at 14:36 Discharge Date: Nov 20, 2017 Discharge Disposition: Home Principal Diagnosis: Radiation esophagitis, pneumonia Problems/Secondary Diagnoses: Hyponatremia CAD w/ h/o MT HLD Chronic systolic CHF Multiple myeloma with lytic lesions Anxiety disorder, NOS Major depressive disorder Sinus tachycardia Chronic pain syndrome due to bony malignancy Ambulatory dysfunction Previous smoker Emphysema PAD status post aortobifemoral bypass History of surgical stabilization of pathologic T7 mass with compression on the spinal cord Pancytopenia related to chemotherapy Immunizations: Have You Had Influenza Vaccine: Unknown History of Tetanus Vaccine?: Unknown History of Pneumococcal: Unknown History of Hepatitis B Vaccine: Unknown Procedures: (CHEST FOR PE) ANGIO WITH CLINICAL HISTORY: 57 years-old Male presenting with multiple myeloma, radiation esophagitis, clinical concern for pulmonary embolus. TECHNIQUE: Multidetector CT angiography of the chest was performed after administration of intravenous contrast. 3-D volumetric and/or maximum intensity projection (MIP) images were subsequently reconstructed for review. IV contrast: 83 mL of Optiray 320. A dose lowering technique was used consistent with the principles of ALARA (as low as reasonably achievable). COMPARISON: 10/20/2017. CT DOSE (mGy.cm): The estimated cumulative dose is 447.49 mGy.cm. FINDINGS: Client Architect topogram: Unremarkable. Pulmonary vasculature: The study is suboptimal for the assessment of the pulmonary vascular tree secondary to timing of the contrast bolus and respiratory motion artifact. No filling defect within the pulmonary arteries to suggest embolus. Main pulmonary artery is not enlarged. No flattening of the interventricular septum. No intracardiac filling defect. No reflux of contrast into the hepatic veins. Remaining chest: On soft tissue windows, normal thyroid. Bilateral gynecomastia. Redemonstration of prominent bilateral hilar and mediastinal lymph nodes. Index nodes in the subcarinal region measure 8 mm and 7 mm in the short axis. Atherosclerosis of the aorta. Atherosclerotic plaque significantly narrows the origin of the left subclavian artery with up to 50% stenosis. Normal heart size. Coronary artery calcification. No pericardial or pleural effusion. Parenchymal calcification noted in the liver, nonspecific. On lung windows, interval development of groundglass added density most significantly in the left upper lobe but also affecting the right upper and middle lobes. Background moderate to severe upper lobe predominant emphysema. Bandlike opacities at the lung bases likely scarring or atelectasis. Subpleural solid 7 mm nodule in the superior segment of the right lower lobe new from prior exam and possibly a manifestation of atelectasis or infection. Bronchial wall thickening. Minimal debris in central airways. On bone windows, T6-9 bilateral transpedicular screw and ten fixation. Laminectomy changes also noted at T6-7. Innumerable lytic lesions noted throughout the axial skeleton. Redemonstration of the severe compression deformity of T3 secondary to extensive lytic changes. Slight retropulsion of the T3 fracture fragments into the spinal canal. IMPRESSION: 1. Redemonstration of innumerable lytic osseous lesions compatible with known multiple myeloma with a severe pathologic compression deformity of T3 and slight retropulsion of fracture fragments narrowing the spinal canal. This is stable to slightly more severe than on prior exam. The degree of spinal canal narrowing would be better demonstrated on thoracic spine MR. 2. Interval development of groundglass infiltrates in the upper lobes greatest in the left upper lobe. This is concerning for an acute infectious process superimposed on moderate to severe upper lobe predominant emphysema. 3. Subpleural solid 7 mm nodule in the superior segment of the right lower lobe is new from prior, and therefore, likely related to either atelectasis or infection given the short time course. 4. Reactive hilar and mediastinal lymphadenopathy. Consultations: Gastroenterology Hematology/oncology Medication Reconciliation New Medications: Fentanyl (Fentanyl) 25 Mcg Tdsy 25 MCG TD CQ72HR, #2 BOX 0 Refills to be used along with the 50 mcg patch for a total of 75 mcg Pantoprazole Sodium (Protonix) 40 Mg Tab 40 MG PO BID, #60 TAB Sucralfate (Sucralfate) 1 Gm/10 Ml Susp 1 GM PO ACHS for 30 Days, #120 DOSE [Enteral Nutrition Formula] () 1 CAN LIQD 1 CAN PO TIDM for 30 Days OTC Changed Medications: Duloxetine Hcl (Cymbalta) 60 Mg Cap 1 CAP PO DAILY for 30 Days, #30 CAP 0 Refills (Changed from: Duloxetine HCl ( Cymbalta) 30 Mg Cap 30 Mg PO DAILY) Continued Medications: Aspirin (Aspirin Ec) 81 Mg Tab 81 MG PO DAILY Bortezomib (Velcade) 1 Mg/Ml Inj 1 APPLN SQ WK Cholecalciferol (Vitamin D3) 1,000 Unit Tab 1 TAB PO DAILY, TAB Dexamethasone (Decadron) 4 Mg Tab 5 TAB PO DIRECTED TAKES ON TUESDAYS BEFORE CHEMO Fentanyl (Duragesic) 50 Mcg Tdsy 50 MCG TD CQ72HR Gabapentin (Neurontin) 100 Mg Cap 100 MG PO TID Garlic (Garlic) 500 Mg Cap 1000 MG PO QAM Lenalidomide (Revlimid) 20 Mg Cap 25 MG PO DAILY 14 DAYS ON 7 DAYS OFF Lidocaine (Lidocaine) 1 Patch Tdsy 1 PATCH TD DIRECTED 12 HOURS ON12 HOURS OFF [place]-3 Fatty Acids (Fish Oil) 1 Cap Cap 1 CAP PO QAM Oxycodone Hcl (Oxycodone Hcl) 10 Mg Tab 10 MG PO Q4H PRN for Pain Pravastatin Sodium (Pravachol) 80 Mg Tab 80 MG PO DAILY, TAB Sennosides-Docusate Sodium (Docusate Sodium/Senna) 1 Tab Tab 1 TAB PO BID Discontinued Medications: Ciprofloxacin Hcl (Cipro) 500 Mg Tab 500 MG PO Q12 STARTED 11-11-17 Discharge Exam Patient reports feeling the same. He still complains of odynophagia. He is tolerating full liquids, however, but must eat very slowly and preferable, soft , creamy foods. His previous pain due to his lytic lesions is well controlled. He denies any other complaints but is frustrated with relying on liquids/ Ensure for nutrition. The patient denies fevers, chills, sweats, chest pain, palpitations, claudication, cough, wheezing, shortness of breath, nausea, vomiting, abdominal pain, dysuria, hematuria, urinary retention, paralysis, weakness, numbness and tingling. Constitutional: No fever, No chills, No sweats Eyes: No worsening of vision, No eye pain, No diplopia ENT: No hearing loss, No nasal symptoms, No trouble swallowing Respiratory: No cough, No wheezing, No shortness of breath Cardiovascular: No chest pain, No claudication, No palpitations Abdomen: No pain, No nausea, No vomiting Musculoskeletal: No joint pain, No muscle pain, No swelling Genitourinary - Male: No dysuria, No urinary retention, No hematuria Neurologic: No paralysis, No weakness, No numbness/tingling Integumentary: No rash, No itch, No color change General appearance: Well-developed, well-nourished, no apparent distress Head: Normocephalic, atraumatic Eyes: Normal inspection, PERRL, EOMI ENT: Normal ENT inspection, hearing grossly normal, pharynx normal Neck: Supple, no JVD, trachea midline Respiratory/Chest: +Decreased breath sounds. Lungs clear to auscultation, no respiratory distress Cardiovascular: Regular rate & rhythm, no gallop, no murmur Abdomen/GI: Normal bowel sounds, non-tender, soft Extremities/Musculoskeletal: Normal inspection, no calf tenderness, no pedal edema Neurological/Psych: +Depressed affect. Frustrated with diet and lack of progress. Alert, oriented x 3 Skin: Normal color, warm/dry, no rash Hospital Course 57 y/o male with a history of CAD, HLD, multiple myeloma, and anxiety who presents with odynophagia and dysphagia, 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 Circumferential granularity of entire esophagus. Moderate narrow of proximal esophagus. Linear ulceration throughout mid body of esophagus. -Continue full liquids and Boost -Continue magic mouth wash, Protonix IV, Carafate -GI consulted, appreciate recs: Continue IV Protonix BID, Carafate QID, Magic mouth wash -Dilaudid prn breakthrough pain -Increased fentanyl 75 mcg TD q72h as pt getting frequent Dilaudid. -Hyponatremia resolved, can d/c IVF and maintain PO diet at home PNA--stable -Received Levaquin and Cefepime here, 7 day course completed -BCx NGTD Multiple myeloma--stable -Resolving pancytopenia s/p Neupogen, s/p 2 units PRBCs 11/14 -On Velcade, Revlimid, and Decadron (pulsed), oncology following. Spoke with Dr. Guzman, hold off on restarting chemo until f/u on Friday -Fentanyl as above, gabapentin 100 mg PO TID, Cymbalta -S/p stabilizing surgery for T spine cord lesions at outside hospital - has been using walker at home for ambulation. -PT/OT Tachycardia -CTA chest negative for PE Chronic systolic CHF, EF 40-45%--stable -D/C IVF CAD, HLD -Continue ASA, pravastatin 80 mg PO hs Anxiety, depression -Cymbalta increased to 30 mg PO BID DVT prophylaxis -Enoxaparin 40 mg SC q24h -SCDs Code Status -Level I, FULL RESUSCITATION STATUS Dispo -Return to home as tolerating PO diet and hyponatremia resolved -F/u oncology Friday, PCP Total Time Spent: Greater than 30 minutes This includes examination of the patient, discharge planning, medication reconciliation, and communication with other providers. Discharge Instructions Please refer to the electronic Patient Visit Report (Discharge Instructions) for additional information. Follow-Up With PCP within 1-2 weeks With oncology within 1 week Additional Copies To Valeria Lackey, [id number] Reviewed: Pt Seen/Exam by Me History Physician Material Lister Supervision Note: I interviewed and examined the patient. Discussed with MALLORIE Molina and agree with findings and plan as documented in the note. Any exceptions or clarifications are listed here: Tolerating full liquids fairly well today, but still with painful swallowing. Afebrile. No cough. Vitals reviewed Gen: AAOx3, NAD HEENT: anicteric sclerae, EOMI CV: Regular rhythm, mild tachycardia, no mgr nl S1S2 Pulm: CTAB no wcr Abd: +BS soft NT ND no masses or hernias Ext: no edema, 2+ DP pulses Skin: no rashes, warm/dry Neuro: full strength throughout Patient is a 57-year-old male with a history of CAD with inferior MT in 2000, Chronic systolic CHF with baseline EF 45%, Ischemic cardiomyopathy, Previous smoker with emphysema, PAD status post aortobifemoral bypass, Plasmablastic myeloma/lymphoma, Recent surgical stabilization of pathologic T7 mass with compression on the spinal cord, and multiple myeloma, here with severe dysphagia and odynophagia 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 Also with left lower lobe pneumonia and pancytopenia related to chemotherapy. -EGD confirms radiation esophagitis-pathology report reviewed and again consistent with the same -Continue PPI, Carafate, Magic mouthwash-hopefully esophagitis will improve with time. He is tolerating a full liquids diet -mild hyponatremia improved with IV fluids and increased p.o. intake -Discontinued Levaquin and cefepime after completion of courses for pneumonia -Pancytopenia related to chemotherapy improving, will have follow-up with hematology/oncology with blood work in the near future -Appreciate hematology consultation-to resume chemo possibly next week -Increased fentanyl patch to 75 mcg given large amounts of breakthrough pain medicine being required and seems to be helping so far, continue oxycodone as needed for breakthrough pain -Sinus tachycardia - as this is persisting, and with increased risk of DVT/PE, we obtained a CT angiogram of the chest which was a suboptimal study but did not reveal any evidence of large PE or right-sided heart failure/pulmonary hypertension Stable for discharge to home with close follow-up Documented By: Dayna Harvey
== END 2017-11-20 15:45 | disposition home or self-care (01) | DRG 922 ==
LOC: C.EDB 09:38 → C.4E 14:07 → ENRESERV 14:26 → OBSVTOIN 11-13 14:36
PROVIDERS: ADMIT Internal Medicine; ATTEND Family Medicine
PROC: 0DJ08ZZ Inspection of Upper Intestinal Tract, Via Natural or Artificial Opening Endoscopic (ICD-10-PCS; principal; 2017-11-18 12:52)
DX: T66.XXXA Radiation sickness, unspecified, initial encounter (principal); K20.8 Other esophagitis; J69.0 Pneumonitis due to inhalation of food and vomit; D61.810 Antineoplastic chemotherapy induced pancytopenia; C90.00 Multiple myeloma not having achieved remission; C79.51 Secondary malignant neoplasm of bone; E44.0 Moderate protein-calorie malnutrition; I50.22 Chronic systolic (congestive) heart failure; E87.1 Hypo-osmolality and hyponatremia; G89.3 Neoplasm related pain (acute) (chronic); R00.0 Tachycardia, unspecified; K44.9 Diaphragmatic hernia without obstruction or gangrene; R26.2 Difficulty in walking, not elsewhere classified; I11.0 Hypertensive heart disease with heart failure; J44.9 Chronic obstructive pulmonary disease, unspecified; I25.10 Atherosclerotic heart disease of native coronary artery without angina pectoris; I25.2 Old myocardial infarction; I73.9 Peripheral vascular disease, unspecified; E78.5 Hyperlipidemia, unspecified; F41.9 Anxiety disorder, unspecified; F32.9 Major depressive disorder, single episode, unspecified; Z51.81 Encounter for therapeutic drug level monitoring; Z79.899 Other long term (current) drug therapy; Z79.891 Long term (current) use of opiate analgesic; Z79.82 Long term (current) use of aspirin; Z79.52 Long term (current) use of systemic steroids; Z86.19 Personal history of other infectious and parasitic diseases; Z95.5 Presence of coronary angioplasty implant and graft; Z95.1 Presence of aortocoronary bypass graft; Z87.891 Personal history of nicotine dependence; Z88.8 Allergy status to other drugs, medicaments and biological substances; W88.1XXA Exposure to radioactive isotopes, initial encounter

== ENCOUNTER → 2017-11-26 | Outpatient (CLI) | payer OTHER ==
[~2017-11-26] MED LIST changes: -CLC100 PO; +CRFUDL PO; -CYM30 PO; +DRGTP25 TD; -DRGTP50 TD; +DULO60CA44 PO; +DXM/4 PO; +Enteral Nutrition Formula PO; +FNTTP50 TD; +GABA-112 PO; -HYDR25CA PO; +MAGIC1 PO; -NRN100 PO; +PANT40TA PO
[2017-11-26 14:01] VITALS: BP 110/70; PULSE 108; TEMP 36.4; O2SAT 93
--- NOTE | 2017-11-26 16:11 | Radiation Oncology Follow-Up ---
Radiation Oncology Follow-Up Date of Visit Nov 26, 2017. Reason For Visit One-month follow-up Radiation Completion Date T spine 11/04/17 Diagnosis (1) Multiple myeloma Status: Chronic Onset Date: 09/21/2017 Location: T-spine Stage: IV Permanent Comment: Admission for uncontrolled back pain Finding of innumerable skeletal lesions with a T7 pathologic fracture extensive epidural tumor with central canal narrowing September 19, 2017. Transfer to [facility] Status post T7 laminectomy and debulking of epidural tumor. T6-T8 posterior instrumented fusion Diagnosis of multiple myeloma Status post completion of radiation therapy to the thoracic spine for palliation of pain. Treatment completed November 04, 2017. He received 3000 cGy Last Edited By: Barbara Resendiz on Nov 10, 2017 15:27 History of Present Illness Mr. Anders was recently diagnosed with multiple myeloma. 09/19/2017 --- CT PE protocol ---IMPRESSION: 1. No pulmonary emboli identified. 2. Innumerable lytic skeletal lesions, including a lesion centered within the posterior elements of T7 with pathologic fracture and extensive epidural extension of tumor. Suspected severe central canal narrowing at this level due to the tumor. This likely results in cord compression. The findings are consistent with a neoplastic process and may reflect metastatic disease or lymphoma/multiple myeloma. Findings discussed with Siobhan Williamson at time of dictation. 3. Mildly enlarged left lower cervical, internal mammary chain and upper abdominal lymphadenopathy which suggests metastatic disease or lymphoma. 4. Severe emphysema. 09/19/2017 --- CT of abdomen/pelvis ---IMPRESSION: 1. Innumerable lytic skeletal lesions consistent with a neoplastic process. This may reflect metastatic disease or lymphoma/myeloma. Associated L5 pathologic fracture. 2. Findings suggestive of mild acute sigmoid diverticulitis. An underlying mucosal lesion is considered unlikely but cannot be excluded. 3. Multiple mildly enlarged upper abdominal/para-aortic lymph nodes which may reflect metastatic disease or lymphoma. 09/20/2017 --- patient transferred to [facility] for acute care and neurosurgical evaluation 09/20/2017 --- MRI of brain, MRI of cervical/thoracic/lumbar spine --- IMPRESSION : #1 no acute intracranial abnormality #2 enhancing bony lesions throughout the axial skeletal in a pattern most compatible with multiple myeloma #3 pathologic fracture of T3 with mild vertebral body height loss and anterior displacement of the anterior fracture fragments #4 destructive lesion involving the posterior elements of T6-T8 with encroachment of the spinal cord resulting in severe central canal stenosis at T7 #5 large marrow replacing lesion of the left iliac bone with lateral cortical breakthrough concerning for impending pathologic fracture. 09/21/2017 --- T7 laminectomy, debulking epidural tumor, T6-8 posterior instrumented fusion by Dr. Mera --- epidural mass, biopsy -plasma cell myeloma with plasmablastic morphology; bone, lytic lesion, biopsy -plasma cell myeloma with plasmablastic morphology. 09/27/2017 --- CT of head without contrast --- IMPRESSION: 1. No acute intracranial findings 2. 16 mm lytic focus involving the left anterior parietal bone 10/08/2017 --- medical oncology consultation with Dr. Gregory Smith --- recommendation was for induction treatment consisting of Revlimid, bortezomib and dexamethasone. 10/16/2017 --- patient admitted to [facility] for intractable pain due to lytic lesions 10/16/2017 --- CT of abdomen/pelvis --- IMPRESSION: 1. 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 2. There is a minimal superior endplate compression deformity of L2. This appears new from 09/27/2017 and is likely acute. 3. A large osteolytic lesion is seen in the medial left ilium. Additionally, lesions are present within proximal femora including the left femoral neck. Note that these lesions may be at risk for insufficiency fracture. 4. There is minimal epidural extension of a lesion within the right posterior aspect of the L5 vertebral body. This does not cause significant acquired compromise of the central canal at this time. 5. Abdominal and retroperitoneal lymphadenopathy is similar to the 09/27/2017 examination. 6. There is evidence of resolving diverticulitis of the sigmoid colon. This has improved from 09/27/2017. 7. Emphysema. 8. Additional findings as above. 10/19/2017 --- medical oncology inpatient follow-up by Dr. Raheem Chaney --- recommends repeat CT of chest given patient's chest pain concerning for PE as well as consideration of palliative external beam radiation therapy. 10/20/2017 --- CT of chest without contrast --- IMPRESSION: 1. Progressive destruction of the majority of the T3 vertebral body with slight progression of the moderate pathologic compression fracture at this level. This is a result of the progressive paravertebral soft tissue mass at this location. 2. Slight progression of the mass centered at the left T7 pedicle. This likely extends into the central canal/epidural space at this location. However, this is suboptimally evaluated due to the metallic artifact at this level. 3. The lower cervical, mediastinal, and gastrohepatic adenopathy is similar to the prior study. 4. Slight progression of the bibasilar densities suggesting atelectasis/ scarring. 5. Multiple lytic lesions seen throughout the visualized osseous structures consistent with metastatic disease. We are now seeing the patient in consultation discuss the role of palliative external beam radiation therapy. Currently, the patient's mostly symptomatic from his mid back and upper back. He also states the pain radiates around his right lateral chest wall. Status post completion of radiation therapy to the thoracic spine completed November 04, 2017. He received 3000 cGy. Interim History Following completion of treatment he did develop significant radiation esophagitis. He was hospitalized from December 13 - December 20. He had an upper GI endoscopy. He also had pneumonia. He steadily improved and was discharged home. He does continue to have difficulty with swallowing. He is eating soft foods. When questioned he does not seem to be eating a large quantity of food. We discussed supplements. He does drink 3 ensure per day. He has Magic mouthwash available as well as Carafate. He continues on his chemotherapy through medical oncology. He did not develop any skin irritation of the anterior or posterior chest. Allergies Coded Allergies: Atorvastatin (Verified Adverse Reaction, Unknown, myalgias, 10/16/17) Simvastatin (Verified Adverse Reaction, Unknown, myalgias, 10/16/17) Home Medications Scheduled Aspirin (Aspirin Ec), 81 MG PO DAILY Bortezomib (Velcade), 1 APPLN SQ WK Cholecalciferol (Vitamin D3), 1 TAB PO DAILY Dexamethasone (Decadron), 5 TAB PO DIRECTED Diphenhy/Alum/Mag/Sucralfa (Magic Swizzle - Diphenhy/Alum/Mag/Sucralfa), 1 TSP PO QID Duloxetine Hcl (Cymbalta), 1 CAP PO DAILY Fentanyl (Duragesic), 50 MCG TD CQ72HR Fentanyl (Fentanyl), 25 MCG TD CQ72HR Gabapentin (Neurontin), 100 MG PO TID Garlic (Garlic), 1,000 MG PO QAM Lenalidomide (Revlimid), 25 MG PO DAILY Lidocaine (Lidocaine), 1 PATCH TD DIRECTED Pantoprazole Sodium (Protonix), 40 MG PO BID Sennosides-Docusate Sodium (Docusate Sodium/Senna), 1 TAB PO BID Sucralfate (Sucralfate), 1 GM PO ACHS [Enteral Nutrition Formula], 1 CAN PO TIDM Scheduled PRN Oxycodone Hcl (Oxycodone Hcl), 10 MG PO Q4H PRN for Pain Review of Systems Gastrointestinal: Symptoms: Constipation GI Comments: Constipation manageable at home;Takes stool softner BID Oral: Other Oral Symptoms: Dysphagia; Respiratory: Symptoms: WNL Urinary: Symptoms: WNL Skin: Symptoms: No Problems Physical Exam Vital Signs Date Time Temp Pulse Resp B/P (MAP) Pulse Ox O2 Delivery O2 Flow Rate FiO2 11/26/17 14:01 36.4 108 20 110/70 93 Fatigue: None General Appearance: + thin Eyes: normal inspection, EOMI ENT: normal ENT inspection, pharynx normal Neck: no adenopathy, thyroid normal Respiratory/Chest: lungs clear, no respiratory distress, no accessory muscle use Cardiovascular: regular rate, rhythm, no gallop, no murmur Abdomen: non tender, soft Extremities: no pedal edema Neurologic/Psychiatric: no motor/sensory deficits, alert, normal mood/affect Skin: warm/dry Pain Management Patient Reports Pain: Yes Initial Pain Intensity: 4.0 Pain Management Plan Pain is managed through medical oncology. See medication list for available analgesics. He also has Magic mouthwash and Carafate available for the esophagitis. Laboratory Laboratory Results: were reviewed Pathology Pathology Results: were reviewed, and pertinent findings noted in HPI Imaging Imaging Studies: were reviewed Imaging Comments Recent upper GI endoscopy was reviewed. Assessment & Plan Plan: Continue follow-up with medical oncology. He will continue the Magic mouthwash or Carafate for the esophageal discomfort. He was seen and examined by Dr. Booth. A follow-up appointment with our office was not given. He may return on an as-needed basis. He may call if he has any questions or concerns. Assessment & Plan (Attending) I agree with note created by Barbara Resendiz PA-C. I reviewed the patient's chart and information with her. I have examined and evaluated the patient. I reviewed relevant clinical information and answered the patient's and/or family' s questions. DEALER CARD ROOM Total Time In Follow-Up I spent 20 minutes speaking to the patient in performing examination. I spent 15 minutes reviewing information and completing this note. [place] Total Time (Attending) In Follow-Up I spent 15 minutes examining and counseling the patient. DEALER CARD ROOM Copy To Guido Guzman D.O.; Mary Burr M.D.; Valeria Lackey, C.R.N.P. Problem Qualifiers (1) Multiple myeloma: Multiple myeloma remission status: not in remission Qualified Codes: C90.00 - Multiple myeloma not having achieved remission
== END | disposition home or self-care (01) ==
LOC: C.ONC 13:36
PROVIDERS: ATTEND Physician Assistant Medical
DX: Z08 Encounter for follow-up examination after completed treatment for malignant neoplasm (principal); Z92.3 Personal history of irradiation; Z85.89 Personal history of malignant neoplasm of other organs and systems

== ENCOUNTER 2018-03-03 18:41 | Emergency (ER) | payer OTHER ==
[~2018-03-03] VITALS: Ht 175.3 cm; Wt 73.9 kg
[~2018-03-03 18:41] MED LIST changes: -DRGTP25 TD; +FNTTP25 TD; +GABA-113 PO; -MAGIC1 PO; +METO25TA4 PO; -OMEGCAP2 PO; -PANT40TA PO; -PRAV80TA PO
[2018-03-03 18:48] VITALS: TEMP 36.6; Ht 175.3 cm; Wt 73.9 kg
[2018-03-03] MEDS ORDERED: SODIUM CHLORIDE 0.9% 1000ML 1,000 ML IV STA (19:02)
[2018-03-03] MEDS ORDERED: HYDROmorphone INJ 0.5 MG/0.5 ML SYR IV STA (19:02)
[2018-03-03] MEDS ORDERED: ONDANSETRON 8 MG/54 ML D5W IV STA (19:02)
[2018-03-03] MEDS ORDERED: OPTIRAY 320 IV PRN (19:15)
[2018-03-03] MEDS ORDERED: AMPICILLIN/SULBACTAM SOD INJ 3,000 MG in SODIUM CHLORIDE 0.9% 100ML 100 ML IV ONE (19:15)
[2018-03-03] MEDS ORDERED: CHOL2000 PO (19:32)
[2018-03-03] MEDS ORDERED: CYAN10005 PO (19:34)
[2018-03-03] MEDS ORDERED: PANT40TA PO (19:36)
[2018-03-03] MEDS ORDERED: DENOINJ PO (19:39)
[2018-03-03] MEDS ORDERED: DULO60CA44 PO (19:40)
[2018-03-03] MEDS ORDERED: ONDANSETRON INJ 8 MG in DEXTROSE 5% 50ML 50 ML IV ONE (19:45)
[2018-03-03] MEDS ORDERED: LENA20CA (19:45)
[2018-03-03] MEDS ORDERED: LENA10CA3 PO (19:45)
--- NOTE | 2018-03-03 19:47 | EMERGENCY ROOM VISIT NOTE ---
History Report prepared by Juan Luis: Buddy Talley Under the Supervision of: Dr. Mau Benz M.D. First contact with patient: 18:56 Chief Complaint: INFECTION Stated Complaint: INFECTION IN JAW, MULTI MYELOMA History of Present Illness The patient is a 57 year old male who presents to the Emergency Room with complaints of constant left lower dental pain that began two days ago. He rates his pain as an 8/10 in severity. The patient states that two days ago he suddenly developed pain and swelling in the left lower dental region. The patient states he also has been experiencing fevers, chills, and diaphoresis since. The patient denies LOC, headache, visual changes, neck pain, chest pain , breathing difficulties, nausea, vomiting, abdominal pain, back pain, melena, hematochezia, urinary symptoms, numbness, weakness, lymphadenopathy, rash, or other complaints. He reports that he has been using Anbesol and a narcotic for the pain. The patient states he has painkillers due to his history of multiple myeloma. He states he is actively being treated with chemotherapy and his last treatment was a week ago. He denies a history of dental infections. Source of History: patient Onset: two days ago Position: other (left lower dental ) Symptom Intensity: 8/10 Timing: constant Modifying Factors (Relieving): narcotics, other (Anbesol) Associated Symptoms: + fevers, + chills, + diaphoresis Review of Systems See HPI for pertinent positives and negatives. A total of ten systems were reviewed and were otherwise negative. Past Medical & Surgical Medical Problems: (1) Acute diverticulitis (2) Acute kidney injury (3) COPD (chronic obstructive pulmonary disease) with emphysema (4) Hypertension (5) Multiple myeloma (6) Peripheral arterial disease (7) Radiation esophagitis (8) Recent spinal surgery (9) Sepsis (10) Septic shock (11) Tobacco abuse Family History Cancer Social History Smoking Status: Former Smoker Drug Use: none Marital Status: Housing Status: lives with family Occupation Status: employed Current/Historical Medications Scheduled Amoxicillin & Pot Clavulanate (Augmentin 875-125 mg), 875 MG PO BID Aspirin (Aspirin Ec), 81 MG PO DAILY Bortezomib (Velcade), 1 APPLN SQ WK Cholecalciferol (Vitamin D3), 2,000 UNITS PO DAILY Cyanocobalamin (Vitamin B-12), 1,000 MCG PO DAILY Denosumab (Xgeva), 120 MG PO MONTHLY Dexamethasone (Decadron), 20 MG PO DIRECTED Duloxetine Hcl (Cymbalta), 60 MG PO DAILY Fentanyl (Fentanyl), 75 MCG TOP Q72H Gabapentin (Neurontin), 100 MG PO AM & noon Gabapentin (Neurontin), 300 MG PO HS Garlic (Garlic), 1,000 MG PO QAM Lenalidomide (Revlimid), 25 MG PO UD Metoprolol Succinate (Toprol Xl), 25 MG PO DAILY Nutritional Supplements (Boost), 1 CAN PO DAILY Pantoprazole (Protonix), 40 MG PO DAILY Sennosides-Docusate Sodium (Docusate Sodium/Senna), 1 TAB PO BID Scheduled PRN Oxycodone Hcl (Oxycodone Hcl), 10 MG PO Q4H PRN for Pain Miscellaneous Medications Lenalidomide (Revlimid) Allergies Coded Allergies: Atorvastatin (Verified Adverse Reaction, Unknown, myalgias, 03/03/18) Simvastatin (Verified Adverse Reaction, Unknown, myalgias, 03/03/18) Physical Exam Vital Signs Date Time Temp Pulse Resp B/P (MAP) Pulse Ox O2 Delivery O2 Flow Rate FiO2 03/03/18 21:29 102 17 102/63 93 Room Air 03/03/18 18:48 36.6 118 17 108/75 97 Room Air Physical Exam GENERAL: Awake, alert, uncomfortable appearing, in no distress. HENT: Normocephalic, atraumatic. Swelling on the left lower anterior jaw. Poor dentition. Floor of mouth and tongue were normal. EYES: Normal conjunctiva. Sclera non-icteric. NECK: Supple. No nuchal rigidity. FROM. No masses. RESPIRATORY: Clear to auscultation. No wheezes. No rales. Normal respiratory effort. CARDIAC: Tachycardic. Normal rhythm. No murmurs. No rubs. Extremities warm and well perfused. Pulses equal. No JVD. GI: Soft, non-distended. No tenderness to palpation. No rebound or guarding. No masses. RECTAL: Deferred. MUSCULOSKELETAL: Atraumatic. Chest examination reveals no tenderness. The back is symmetrical on inspection without obvious abnormality. There is no CVA tenderness to palpation. No joint edema. LOWER EXTREMITIES: Calves are equal size bilaterally and non-tender. No edema. No discoloration. NEURO: Normal sensorium. No sensory or motor deficits noted. SKIN: No rash or jaundice noted. Medical Decision & Procedures ER Provider Diagnostic Interpretation: Radiology results as stated below per my review and radiologist interpretation: SOFT TISSUE NECK WITH HISTORY: 57 years-old Male multiple myeloma, fevers, left lower jaw pain and swelling acute fever with left lower jaw pain and swelling. History of multiple myeloma. COMPARISON: None available TECHNIQUE: Multiple axial CT images of the soft tissues of the neck were obtained following the intravenous administration of 116 mL Optiray 320 IV contrast. A dose lowering technique was used consistent with the principals of RAINER. FINDINGS: The patient is nearly edentulous with only the maxillary lateral incisor is and canines present which contains suggested dental caries. All of the maxillary teeth are absent. Mastoid air cells and middle ear cavities are clear. Minimal polypoid mucosal thickening about the left maxillary sinus. Mild mucosal thickening of the ethmoid air cells. Marked loss of anterior and middle vertebral body height involves the T3 vertebral body with a few millimeters of retrolisthesis. Increased sclerosis of the vertebral body is also noted posteriorly. Lucent lesions are noted within several vertebral bodies and posterior elements, notably within the imaged upper thoracic spine. Severe emphysema. Atheromatous plaque at the origin of the left subclavian artery causes approximately 50% luminal narrowing. Atheromatous plaque formation is also noted within the bilateral carotid bulbs. There is occlusion of the left internal carotid artery extending from its origin through the supraclinoid portion. The visualized left M1 segment appears to be patent. Moderate calcification of the petrous, cavernous and clinoid right internal carotid artery without high-grade stenosis. There is high-grade stenosis or occlusion of the mid V4 segment left vertebral artery on image 67 series 3 with reconstitution of flow noted within the distal portion of the V4 segment. Nasopharynx, oral pharynx and hypopharynx appear patent. Soft tissue attenuating 6 x 6 mm nodule of the right piriform sinus is seen on image 193 series 3. Left piriform sinus and vallecula, epiglottis and area epiglottic folds appear unremarkable. The glottis and subglottic airway appear unremarkable. Thyroid is homogeneous. Bilateral submandibular, parotid and sublingual glands are unremarkable. Punctate calcification of the posterior left superficial parotid gland, image 110 series 3. No pathologically enlarged lymph nodes. Mild to moderate subcutaneous edema with skin thickening involves the mandibular and submandibular tissues. No opaque foreign body or drainable fluid collections. IMPRESSION: 1. Mild to moderate subcutaneous edema with skin thickening involves the mandibular and submandibular tissues, possibly reflecting cellulitis. No drainable fluid collections. 2. Punctate calcification of the superficial lobe of the left parotid gland suggests nonobstructing sialolith. 3. Severe emphysema. 4. Multiple lytic lesions throughout the visualized spine compatible with patient's stated history of multiple myeloma. 5. Mixed atheromatous and atherosclerotic plaquing of the aorta, carotid and vertebral basilar system with occlusion of the left ICA extending from its origin through the carotid terminus. Additionally, there is high-grade stenosis or focal occlusion of the mid V4 segment left vertebral artery as described above. 6. 6 mm nodule of the right piriform sinus incidentally noted. Correlation with direct visualization recommended. The above report was generated using voice recognition software. It may contain grammatical, syntax or spelling errors. Electronically signed by: Audi Pratt M.D. 03/03/2018 8:47 PM Dictated Date/Time: 03/03/2018 8:35 PM Laboratory Results 03/03/18 19:25 Red Blood Count 4.74, Mean Corpuscular Volume 92.6, Mean Corpuscular Hemoglobin 31.6, Mean Corpuscular Hemoglobin Concent 34.2, Mean Platelet Volume 10.0, Neutrophils (%) (Auto) 69.6, Lymphocytes (%) (Auto) 14.4, Monocytes (%) (Auto) 15.3, Eosinophils (%) (Auto) 0.4, Basophils (%) (Auto) 0.1, Neutrophils # (Auto ) 6.93, Lymphocytes # (Auto) 1.43, Monocytes # (Auto) 1.52, Eosinophils # (Auto ) 0.04, Basophils # (Auto) 0.01 03/03/18 19:25 Test 03/03/18 19:25 White Blood Count 9.95 K/uL (4.8-10.8) Red Blood Count 4.74 M/uL (4.7-6.1) Hemoglobin 15.0 g/dL (14.0-18.0) Hematocrit 43.9 % (42-52) Mean Corpuscular Volume 92.6 fL (80-100) Mean Corpuscular Hemoglobin 31.6 pg (25-34) Mean Corpuscular Hemoglobin Concent 34.2 g/dl (32-36) Platelet Count 212 K/uL (130-400) Mean Platelet Volume 10.0 fL (7.4-10.4) Neutrophils (%) (Auto) 69.6 % Lymphocytes (%) (Auto) 14.4 % Monocytes (%) (Auto) 15.3 % Eosinophils (%) (Auto) 0.4 % Basophils (%) (Auto) 0.1 % Neutrophils # (Auto) 6.93 K/uL (1.4-6.5) Lymphocytes # (Auto) 1.43 K/uL (1.2-3.4) Monocytes # (Auto) 1.52 K/uL (0.11-0.59) Eosinophils # (Auto) 0.04 K/uL (0-0.5) Basophils # (Auto) 0.01 K/uL (0-0.2) RDW Standard Deviation 54.2 fL (36.4-46.3) RDW Coefficient of Variation 16.0 % (11.5-14.5) Immature Granulocyte % (Auto) 0.2 % Immature Granulocyte # (Auto) 0.02 K/uL (0.00-0.02) Anion Gap 11.0 mmol/L (3-11) Est Creatinine Clear Calc Drug Dose 112.1 ml/min Estimated GFR () 119.0 Estimated GFR (Non- 102.7 BUN/Creatinine Ratio 24.8 (10-20) Calcium Level 8.6 mg/dl (8.5-10.1) Laboratory results reviewed by me Medications Administered Medications (Trade) Dose Ordered Sig/Malik Route Start Time Stop Time Status Last Admin Dose Admin Sodium Chloride 1,000 ml @ 999 mls/hr Q1H1M STAT IV 03/03/18 19:02 03/03/18 20:02 DC 03/03/18 19:25 999 MLS/HR Ampicillin Sodium/ Sulbactam Sodium 3000 mg/Sodium Chloride 108 ml @ 200 mls/hr ONE ONCE IV 03/03/18 19:15 03/03/18 19:47 DC 03/03/18 19:40 200 MLS/HR Hydromorphone HCl (Dilaudid Inj) 0.5 mg NOW STAT IV 03/03/18 19:02 03/03/18 19:06 DC 03/03/18 19:25 0.5 MG Ondansetron HCl 8 mg/Dextrose 54 ml @ 216 mls/hr NOW ONCE IV 03/03/18 19:45 03/03/18 19:59 DC 03/03/18 19:45 216 MLS/HR ED Course 1900: The patient was evaluated in room A09B. A complete history and physical exam was performed. 1901: Ordered Dilaudid Injection 0.5 mg IV, Sodium Chloride 1000 ml @ 999 mls/ hr IV, Ondansetron HCl 8 mg IV. 1914: Ordered Ampicillin Sodium/Sulbactam Sodium 3000 mg/ Sodium Chloride 108 ml @ 2000 mls/hr IV. 1944: Ordered Ondansetron HCl 8 mg/Dextrose 54 ml @ 216 mls/hr IV. 2142: I reevaluated the patient and he is doing well. Discussed results and discharge instructions: He verbalized understanding and agreement. The patient is ready for discharge. 2199: Ordered Amoxicillin/ Clavulanate Potassium 1 homepack PO. Medical Decision Prior records/ancillary studies reviewed. Triage Nursing notes reviewed and agree them. Additional history obtained from the family. The patient's history was concerning for fever, chills, and left jaw swelling Differential diagnosis: Etiologies such as cellulitis, abscess, dental infection, Andre's angina, complication of multiple myeloma, as well as others were entertained. ER treatment provided: IV normal saline Cultures IV Dilaudid IV Unasyn On reassessment the patient felt better. Diagnostics interpreted by me: The labs revealed an unremarkable CBC and chemistry panel. Imaging studies: CT scan as above The patient has a mild facial cellulitis. I suspect this is from a dental source. He has a pending appointment with dentistry. He will also have a follow-up tomorrow with his primary physician. Incidentally he was noted to have significant vascular disease noted. That is not his current issue at this time. He will be started on Augmentin. He has pain medication at home. If he worsens in any way he will be brought back to the ER for reevaluation. By the evaluation outlined above other emergent etiologies such as those listed in the differential, as well as others, were deemed relatively unlikely. The patient was educated about the findings as listed above. All questions were answered and the patient was pleased with the treatment. Return instructions were outlined and the patient was discharged in stable condition. The patient was referred to PCP and dentistry for follow-up for a recheck of the current condition. Medication Reconcilliation Current Medication List: was personally reviewed by me Blood Pressure Screening Patient's blood pressure: Normal blood pressure Impression Primary Impression: Facial cellulitis Additional Impression: Multiple myeloma Scribe Attestation The scribe's documentation has been prepared under my direction and personally reviewed by me in its entirety. I confirm that the note above accurately reflects all work, treatment, procedures, and medical decision making performed by me. Departure Information Dispostion Home / Self-Care Prescriptions Amoxicillin & Pot Clavulanate (Augmentin 875-125 mg) 1 Tab Tab 875 MG PO BID for 9 Days, #18 TAB Prov: Mau Benz MD 03/03/18 Referrals No Doctor, Assigned (PCP) Yamile Jose M.D. Lieb, James V. D.O. Woytowich, Jessica A., PA-C Forms HOME CARE DOCUMENTATION FORM, IMPORTANT VISIT INFORMATION, WORK / SCHOOL INSTRUCTIONS Patient Instructions My [facility] Additional Instructions CELLULITIS INSTRUCTIONS: Amoxicillin Clavulanate (Augmentin) 875mg: Take one pill twice daily for 10 days for your infection. All antibiotics can cause diarrhea. If this occurs and you feel worse or it does not resolve in 1-2 days follow up with your doctor or return to the Emergency Department as this could be signs of serious underlying problems. Any medication can cause an allergic reaction, stop the pills immediately and return to the ER for rash, hives, breathing difficulties, or swelling. Continue current pain medication. Ibuprofen(Motrin, Advil) may be used for fever or pain. Use 600mg every six hours as needed. Take with food. Avoid using more than 2400mg in a 24 hour period. Do not use 2400mg per day for more than three consecutive days without physician direction. Prolonged inappropriate use can lead to stomach upset or ulcers. (AND/OR) Acetaminophen(Tylenol) may be used for fever or pain. Use 1000mg every six hours as needed. Avoid using more than 4000mg in a 24 hour period. Warm compresses to the affected area 4 times daily for 15-20 minutes. Rest and drink plenty of fluids. Continue current medications. Return to the ER for severe pain, persistent fevers, spreading redness, or any worsening of your condition. Follow up with your primary physician tomorrow as scheduled for a recheck of the current condition. Follow-up with dentistry this week. Notify your oncologist about the infection. Problem Qualifiers
[2018-03-03] MEDS ORDERED: FENT75DI2 TOP (19:49)
[2018-03-03 19:50] LABS: BASO % 0.1 %; BASO ABS # 0.01 K/uL (0-0.2); EOS % 0.4 %; EOS ABS # 0.04 K/uL (0-0.5); HEMATOCRIT 43.9 % (42-52); IG# 0.02 K/uL (0.00-0.02); LYMPH % 14.4 %; LYMPH ABS # 1.43 K/uL (1.2-3.4); MEAN CELL VOLUME 92.6 fL (80-100); MEAN CORPUSCULAR HEMOGLOBIN 31.6 pg (25-34); MEAN CORPUSCULAR HGB CONC 34.2 g/dl (32-36); MONO % 15.3 %; MONO ABS # 1.52 K/uL (0.11-0.59); NEUT % 69.6 %; NEUT ABS # 6.93 K/uL (1.4-6.5); PLATELET COUNT 212 K/uL (130-400); RED CELL DISTRIBUTION WIDTH SD 54.2 fL (36.4-46.3); WHITE BLOOD COUNT 9.95 K/uL (4.8-10.8)
[2018-03-03] MEDS ORDERED: NUTR-7 PO (19:52)
[2018-03-03 20:01] LABS: CALCIUM 8.6 mg/dl (8.5-10.1); CREATININE 0.71 mg/dl (0.60-1.40)
--- NOTE | 2018-03-03 20:49 | DIAGNOSTIC IMAGING REPORT ---
SOFT TISSUE NECK WITH HISTORY: 57 years-old Male multiple myeloma, fevers, left lower jaw pain and swelling acute fever with left lower jaw pain and swelling. History of multiple myeloma. COMPARISON: None available TECHNIQUE: Multiple axial CT images of the soft tissues of the neck were obtained following the intravenous administration of 116 mL Optiray 320 IV contrast. A dose lowering technique was used consistent with the principals of ADELINARA. FINDINGS: The patient is nearly edentulous with only the maxillary lateral incisor is and canines present which contains suggested dental caries. All of the maxillary teeth are absent. Mastoid air cells and middle ear cavities are clear. Minimal polypoid mucosal thickening about the left maxillary sinus. Mild mucosal thickening of the ethmoid air cells. Marked loss of anterior and middle vertebral body height involves the T3 vertebral body with a few millimeters of retrolisthesis. Increased sclerosis of the vertebral body is also noted posteriorly. Lucent lesions are noted within several vertebral bodies and posterior elements, notably within the imaged upper thoracic spine. Severe emphysema. Atheromatous plaque at the origin of the left subclavian artery causes approximately 50% luminal narrowing. Atheromatous plaque formation is also noted within the bilateral carotid bulbs. There is occlusion of the left internal carotid artery extending from its origin through the supraclinoid portion. The visualized left M1 segment appears to be patent. Moderate calcification of the petrous, cavernous and clinoid right internal carotid artery without high-grade stenosis. There is high-grade stenosis or occlusion of the mid V4 segment left vertebral artery on image 67 series 3 with reconstitution of flow noted within the distal portion of the V4 segment. Nasopharynx, oral pharynx and hypopharynx appear patent. Soft tissue attenuating 6 x 6 mm nodule of the right piriform sinus is seen on image 193 series 3. Left piriform sinus and vallecula, epiglottis and area epiglottic folds appear unremarkable. The glottis and subglottic airway appear unremarkable. Thyroid is homogeneous. Bilateral submandibular, parotid and sublingual glands are unremarkable. Punctate calcification of the posterior left superficial parotid gland, image 110 series 3. No pathologically enlarged lymph nodes. Mild to moderate subcutaneous edema with skin thickening involves the mandibular and submandibular tissues. No opaque foreign body or drainable fluid collections. IMPRESSION: 1. Mild to moderate subcutaneous edema with skin thickening involves the mandibular and submandibular tissues, possibly reflecting cellulitis. No drainable fluid collections. 2. Punctate calcification of the superficial lobe of the left parotid gland suggests nonobstructing sialolith. 3. Severe emphysema. 4. Multiple lytic lesions throughout the visualized spine compatible with patient's stated history of multiple myeloma. 5. Mixed atheromatous and atherosclerotic plaquing of the aorta, carotid and vertebral basilar system with occlusion of the left ICA extending from its origin through the carotid terminus. Additionally, there is high-grade stenosis or focal occlusion of the mid V4 segment left vertebral artery as described above. 6. 6 mm nodule of the right piriform sinus incidentally noted. Correlation with direct visualization recommended. The above report was generated using voice recognition software. It may contain grammatical, syntax or spelling errors. Electronically signed by: Audi Pratt M.D. 03/03/2018 8:47 PM Dictated Date/Time: 03/03/2018 8:35 PM
[2018-03-03 21:29] VITALS: BP 102/63; PULSE 102; O2SAT 93
[2018-03-03] MEDS ORDERED: AMOX875T PO (21:54)
[2018-03-03] MEDS ORDERED: AMOXICIL/CLAVU 875MG HOME PACK PO ONE (22:00)
== END 2018-03-03 22:04 | disposition home or self-care (01) ==
LOC: C.EDB 18:42 → C.EDA 22:04
DX: L03.211 Cellulitis of face (principal); C90.00 Multiple myeloma not having achieved remission; J44.9 Chronic obstructive pulmonary disease, unspecified; I10 Essential (primary) hypertension; I49.1 Atrial premature depolarization; Z79.82 Long term (current) use of aspirin; Z79.899 Other long term (current) drug therapy; Z88.8 Allergy status to other drugs, medicaments and biological substances